=== PATIENT | female | born 1960 | race Caucasian/White ===

== ENCOUNTER → 2016-06-26 | Outpatient (CLI) | payer MEDICARE, OTHER ==
--- NOTE | 2016-06-26 15:26 | NM ---
Nuclear medicine hepatobiliary scan. HISTORY: Pain. The patient received 8 ounces of oral ensure plus and 5 mCi of Technetium 99m Choletec. There is normal hepatic extraction. The gallbladder is seen by 35 minutes. There is biliary to steven l clearance by 20 minutes. Ejection fraction is 86%. IMPRESSION: 1. No evidence of cholecystitis. 2. Ejection fraction is 86%. Correlate clinically.
== END | disposition home or self-care (01) ==
LOC: RADNMMAIN 13:01
PROVIDERS: ATTEND Family Medicine
DX: R10.10 Upper abdominal pain, unspecified (principal)
CPT/HCPCS: 78226; A9537

== ENCOUNTER → 2016-11-20 | Outpatient (CLI) | payer MEDICARE, OTHER ==
--- NOTE | 2016-11-20 13:02 | CT ---
EXAMINATION TYPE: CT chest w con DATE OF EXAM: 11/20/2016 COMPARISON: Previous study dated 11/16/2014 HISTORY: Rt sided chest pain, history of thoracic aneurysm CT DLP: 579.4 mGycm Automated exposure control for dose reduction was used. CONTRAST: CT scan of the chest is performed with IV Contrast, patient injected with 100 mL of Omnipaque 300. FINDINGS: The lungs are clear. There is no significant axillary, internal mammary, mediastinal or hilar adenopathy. There is no pleu ral or pericardial fluid. The heart is not enlarged. The root of the aorta is dilated measuring 4 cm. The proximal arch measures 3.1 cm. The proximal desc ending thoracic aorta and the remainder of the aorta are normal in caliber. Due to the aorta previous ly measured 3.5 cm. There is a small hiatal hernia. Visualized upper abdominal structures are otherwise normal. This hypertrophic spondylosis within the spine. IMPRESSION: 1. ASCENDING THORACIC AORTIC ANEURYSM. 2. SMALL HIATAL HERNIA. 3. DEGENERATIVE CHANGES WITHIN THE SPINE.
== END | disposition home or self-care (01) ==
LOC: RADCTMAIN 11:49
PROVIDERS: ATTEND Family Medicine
DX: I71.2 Thoracic aortic aneurysm, without rupture (principal)
CPT/HCPCS: 71260; Q9967

== ENCOUNTER → 2017-02-24 | Outpatient (CLI) | payer MEDICARE, OTHER ==
--- NOTE | 2017-02-24 12:06 | MR ---
EXAMINATION TYPE: MR lumbar spine wo con DATE OF EXAM: 02/24/2017 COMPARISON: NONE HISTORY: headaches , lumbago TECHNIQUE: T1 and T2 axial and sagittal images of the lumbar spine are submitted. FINDINGS: There is no abnormal signal seen within the visualized spinal cord or paraspinal soft tissu es. At L1-2 there is no disc herniation or canal stenosis. No foraminal encroachment. At L2-3 there is no disc herniation or canal stenosis. No foraminal encroachment. At L3-4 there is facet arthropathy but no disc herniation or canal stenosis. No foraminal encroachmen t. At L4-5 there is facet arthropathy and broad-based central left paracentral disc protrusion with mode rate effacement of thecal sac and mild left foraminal encroachment. At L5-S1 there is facet arthropathy but no disc herniation, canal stenosis or foraminal encroachment. IMPRESSION: 1. At L4-5 there is facet arthropathy and broad-based central left paracentral disc protrusion with m oderate effacement of thecal sac and mild left foraminal encroachment. 2. Multilevel facet arthropathy. EXAMINATION TYPE: MR brain wo con DATE OF EXAM: 02/24/2017 COMPARISON: 10/14/2014. HISTORY: headaches , lumbago T1-weighted sagittal, T2, FLAIR, and diffusion axial, and T2 coronal coronal views of the brain are s ubmitted. There is intermediate area of signal within the right inferior fracture was present on the previous e xam of 2014. Referring clinician notified.. The ventricles, basal cisterns, and sulci overlying the convexities are consistent with the patient's age. There is no mass effect. Craniocervical junction maintained. Sella turcica has a normal appearance. No cerebellopontine angle mass. Areas of chronic sinusitis noted. White matter: There are approximately 4 areas of abnormal signal all measuring 5 mm a left within the white matter. Some of which appear artifactual. No callosal lesions. No lesions perpendicular to matt tricular system. Findings are nonspecific. IMPRESSION: 1. Area of intermediate increased signal on diffusion imaging within the inferior margin of the right cerebellar hemisphere likely is artifactual and is present on the previous exam. Correlate clinicall y to exclude a tiny area of subacute ischemia. 2. Changes of chronic sinusitis. 3. Minimal nonspecific white matter changes.
== END | disposition home or self-care (01) ==
LOC: RADMRIMAIN 09:45
PROVIDERS: ATTEND Psychiatry & Neurology Pain Medicine
DX: M51.27 Other intervertebral disc displacement, lumbosacral region (principal); M46.96 Unspecified inflammatory spondylopathy, lumbar region; R90.82 White matter disease, unspecified; R51 Headache
CPT/HCPCS: 70551; 72148

== ENCOUNTER → 2017-03-14 | Outpatient (CLI) | payer MEDICARE, OTHER ==
--- NOTE | 2017-03-14 17:54 | CT ---
EXAMINATION TYPE: CT angio head neck DATE OF EXAM: 03/14/2017 HISTORY: Vertigo x months and headaches x 1 month. COMPARISON: NONE CT DLP: 1659.00 mGycm. Automated Exposure Control for Dose Reduction was Utilized. TECHNIQUE: CTA scan of the neck is performed without and with IV Contrast, patient injected with 65 mL of Omnipaque 350, axial images are obtained, coronal and sagittal reformatted images are reviewed. Three-D reconstructed images are created on an independent workstation and reviewed. FINDINGS: There is normal branching pattern of the great vessels on the aortic arch. There is bilateral arteria l flow in the vertebral arteries. There is arterial flow in the vertebrobasilar artery system. There is patency of the common internal and external carotid arteries bilaterally. There is arterial flow in the anterior middle and posterior cerebral arteries. There is no sign of aneurysm or neovascu larity. There is no mass effect. There is no sign of stenosis. There is some tortuosity of the proxim al left internal carotid artery. There is normal contrast opacification of the intracranial venous sinuses. IMPRESSION: Negative CT angiogram of the neck. Negative CT angiogram of the brain.
== END | disposition home or self-care (01) ==
LOC: RADCTMAIN 16:37
PROVIDERS: ATTEND Psychiatry & Neurology Neurology
DX: H81.43 Vertigo of central origin, bilateral (principal)
CPT/HCPCS: 70496; 70498; Q9967

== ENCOUNTER → 2017-06-17 | Outpatient (CLI) | payer MEDICARE, OTHER ==
--- NOTE | 2017-06-18 05:51 | CONS ---
CONSULTATION Consultation note for sleep apnea. This is a 56-year-old female patient who suffers from chronic insomnia. The patient reports that she has had issues with insomnia since a young age. She has been told by her mother that she used to wake up after sleeping for a short period of time even as kid. During her adulthood, her insomnia progressively got worse and she was tried on different treatment and she was ultimately maintained on the trazodone 100 mg at bedtime. She takes the medication at 7 p.m. and she is being treated with trazodone since 2005. She goes to bed at around 9 p.m. and she wakes up around midnight. Following that, she is able to go back to sleep and on and off she would wake up, back and forth and ultimately she will get out of bed around 5 a.m. in the morning. She claims that she averages between 4 to 4-1/2 hours of sleep. She has developed also morning headaches. She is obese. She carries a BMI of 42.4 and she snores yet she has not been told to quit breathing at night and there was no witnessed apneas. She has had previous history of restless legs syndrome, which got worse upon initiation of Seroquel and the medication had to be discontinued because of increased restlessness in the lower extremities. She feels tired and around down at all times. At this point in time, the patient is coming in to be investigated regarding her poor sleep quality and see there is any other contributing factors to her chronic insomnia. PAST MEDICAL HISTORY: Obesity, hypothyroidism, migraines, chronic back pain, COPD and chronic insomnia. PAST SURGICAL HISTORY: Past surgical history includes bladder suspension surgery. DRUG ALLERGIES: Drug allergies are to MOLD and MILDEW. SOCIAL HISTORY: The patient is a nonsmoker. She quit smoking many years back. No history of alcoholism other than she drinks alcohol socially. FAMILY HISTORY: Negative for insomnia or obstructive sleep apnea. REVIEW OF SYSTEMS: Twelve-point review of system was done. Positive findings are mentioned above in the history of present illness. Specifically there is no history of any choking or gasping for air at night time. No grinding of the teeth. No sleepwalking. No anxiety or panic attacks. No palpitation. No heartburn. No nocturnal chest pain. No anxiety. No claustrophobia. No sexual dysfunction. PHYSICAL EXAMINATION: Her BP is 149/86, pulse 84, respirations 16, temperature 97.5, saturation 94% on room air. Weight is 255. Height is 5 feet 5 inches and BMI 42.4. Neck size 16-3/4 of an inch. GENERAL APPEARANCE: Calm, comfortable, obese. Head is atraumatic normocephalic. Neck is supple. There is no JVD. There is no goiter or neck masses. Mallampati class 4. Lungs are clear to auscultation. HEART: Sounds regular rate and rhythm. Normal S1, S2. No S3, S4. No murmurs. ABDOMEN: Soft, nontender. No organomegaly. EXTREMITIES: No edema. No cyanosis or clubbing. NEUROLOGIC: She is alert and oriented x3. There is no focal neurological deficits. PSYCHIATRICALLY: Appropriate mood and affect. SKIN: Negative for any ulcerations, wounds or cellulitis. IMPRESSION: 1. Chronic insomnia, currently on trazodone. 2. Poor sleep quality, frequent nocturnal arousals and ongoing issues with sleep maintenance insomnia. Rule out underlying obstructive sleep apnea. Rule out underlying periodic limb movements/restless leg syndrome contributing to her sleep fragmentation. Rule out underlying chronic pain contributing to her sleep fragmentation. 3. Obesity, body mass index 42.4. 4. Hypothyroidism. 5. Morning headaches under investigation, rule out obstructive sleep apnea. 6. Chronic obstructive pulmonary disease, current inactive and stable. PLAN: 1. Encourage weight loss. 2. Optimize treatment of chronic pain through Dr. Perez. 3. Continue trazodone 100 mg at bedtime. 4. Proceed with a screening polysomnogram looking for any other contributing factors to her sleep maintenance insomnia. Rule out underlying obstructive sleep apnea. We will continue to follow and make further recommendations based on the results of the sleep study. MMODL / IJN: [id number] /
== END | disposition home or self-care (01) ==
LOC: SLEEP 13:16
PROVIDERS: ATTEND Internal Medicine Critical Care Medicine
DX: F51.04 Psychophysiologic insomnia (principal); E03.9 Hypothyroidism, unspecified; R51 Headache; J44.9 Chronic obstructive pulmonary disease, unspecified; E66.9 Obesity, unspecified; Z68.41 Body mass index [BMI] 40.0-44.9, adult; Z79.899 Other long term (current) drug therapy; Z77.120 Contact with and (suspected) exposure to mold (toxic); Z91.048 Other nonmedicinal substance allergy status; Z87.891 Personal history of nicotine dependence
CPT/HCPCS: 99204; 99211

== ENCOUNTER → 2017-08-26 | Outpatient (CLI) | payer MEDICARE, OTHER ==
--- NOTE | 2017-08-26 15:14 | MR ---
EXAMINATION TYPE: MR shoulder LT wo con DATE OF EXAM: 08/26/2017 COMPARISON: NONE HISTORY: Left shoulder pain TECHNIQUE: Multiplanar, multisequence imaging of the left shoulder is performed without contrast. FINDINGS: Rotator Cuff: There is a partial thickness bursal surface tear of the supraspinatus at its anterior i nsertional fibers measuring 0.6 x 0.9 cm superimposed upon tendinopathy with extensive bursal surface fiber fraying. Tendinopathy is greatest at the insertional fibers and the supraspinatus midportion. Mild tendinopathy is seen of the infraspinatus as increased signal within the insertional fibers. No distinct tear within the infraspinatus. The teres minor is unremarkable in signal and muscle volume as is the subscapularis. Acromioclavicular Joint: There is mild to moderate acromioclavicular arthropathy with subchondral cys ts, marginal osteophytes and capsular hypertrophy. There is no downsloping of the acromion noted. The re is abutment of the supraspinatus myotendinous junction by the arthropathy without impingement or s ignificant impression. Glenohumeral Joint: No narrowing or marginal osteophytes. Labrum: The labrum appears grossly intact given limitation of non-arthrogram study. There is at least moderate labral degeneration of the anterior superior and posterior superior labrum. Biceps Tendon: The long head of biceps is in normal location within bicipital groove. Fluid surrounds both the intra-articular and extra articular portions of the biceps tendon indicating tenosynovitis in addition to thickening and attenuation in the intra-articular portion near the insertion on the bi ceps anchor. No discrete tear is seen. Bone marrow signal: No focal abnormal marrow signal is appreciated. IMPRESSION: 1. Subcentimeter partial-thickness bursal surface tear of the anterior insertional fibers of the supr aspinatus measuring 0.6 x 0.8 cm. This is superimposed upon tendinopathy with extensive bursal surfac e fiber fraying 2. Mild tendinopathy of infraspinatus. 3. Biceps tenosynovitis and insertional fiber tendinopathy. 4. At least moderate labral degeneration of the anterior superior and posterior superior glenoid labr um. 5. Mild to moderate acromioclavicular arthropathy without evidence of internal impingement.
== END | disposition home or self-care (01) ==
LOC: RADMRIMAIN 08:20
PROVIDERS: ATTEND Psychiatry & Neurology Neurology
DX: M75.102 Unspecified rotator cuff tear or rupture of left shoulder, not specified as traumatic (principal); M65.812 Other synovitis and tenosynovitis, left shoulder; M12.812 Other specific arthropathies, not elsewhere classified, left shoulder; M75.22 Bicipital tendinitis, left shoulder

== ENCOUNTER → 2017-10-23 | Outpatient (CLI) | payer MEDICARE, OTHER ==
--- NOTE | 2017-10-24 13:18 | MM ---
Reason for exam: screening (asymptomatic). Last mammogram was performed 1 year and 11 months ago. History: Patient is postmenopausal. Family history of breast cancer in maternal aunt at age 48. Took estrogen for 6 months. Physical Findings: A clinical breast exam by your physician is recommended on an annual basis and results should be correlated with mammographic findings. MG Screening Mammo w CAD Bilateral CC and MLO view(s) were taken. Prior study comparison: November 16, 2015, left breast MG work up mamm w CAD LT. November 07, 2015, bilateral MG screening mammo w CAD. The breast tissue is heterogeneously dense. This may lower the sensitivity of mammography. No suspicious abnormality. No significant changes when compared with prior studies. ASSESSMENT: Negative, BI-RAD 1 RECOMMENDATION: Routine screening mammogram of both breasts in 1 year.
== END | disposition home or self-care (01) ==
LOC: RADMAMWWP 08:54
PROVIDERS: ATTEND Family Medicine
DX: Z12.31 Encounter for screening mammogram for malignant neoplasm of breast (principal)
CPT/HCPCS: 77067

== ENCOUNTER → 2017-11-17 | Outpatient (CLI) | payer MEDICARE, OTHER ==
--- NOTE | 2017-11-17 08:15 | CT ---
EXAMINATION TYPE: CT angio thoracic/abd aorta DATE OF EXAM: 11/17/2017 COMPARISON: NONE HISTORY: Ascending Aortic Aneurysm CT DLP: 2071.8 mGycm CONTRAST: CTA thoracic and abdominal aorta with 3-D reconstruction is performed and without and with IV Contras t, patient injected with 100 mL of Isovue 370. Contrast CTA of the thoracic and abdominal aorta was performed from the lung apex through the base of the pelvis. 3-D reconstruction imaging obtained at a separate workstation. CT Chest: THORACIC AORTA: There is no evidence for aneurysm. Descending thoracic aorta measures 3.5 cm AP dime nsion. No dissection or mediastinal hematoma. Mild atheromatous changes are seen. LUNGS: The lungs are clear and free of infiltrate or atelectasis. No pulmonary nodule or mass is det ected. No pleural effusion or CT evidence of interstitial lung disease. MEDIASTINUM: The heart is not enlarged. No evidence for mediastinal mass or adenopathy. HILAR STRUCTURES: No evidence for mass. No hilar adenopathy is appreciated. OTHER: No significant abnormality. Small sliding-type hiatal hernia noted. CONTRAST CT ABDOMEN AND PELVIS ABDOMINAL AORTA: No evidence for abdominal aortic aneurysm. No dissection. Iliac vessels are symmet pamela and patent. LIVER/GB- No significant abnormality is seen. PANCREAS- No significant abnormality is seen. SPLEEN- No significant abnormality is seen. ADRENALS- No significant abnormality is seen. KIDNEYS/BLADDER-simple cyst lower pole left kidney measuring 2 cm. No solid renal lesions. No hydrone phrosis or nephrolithiasis. BOWEL- No Significant abnormality GENITAL ORGANS: No gross abnormality seen. LYMPH NODES- No greater than 1cm abdominal or pelvic lymph nodes areappreciated. OSSEOUS STRUCTURES- No significant abnormality is seen. OTHER- No significant abnormality is seen. IMPRESSION- 1. No evidence for aortic aneurysm. 2. Small sliding-type hiatal hernia. 3. Simple cyst left kidney.
== END | disposition home or self-care (01) ==
LOC: RADCTMAIN 07:24
PROVIDERS: ATTEND Internal Medicine Interventional Cardiology
DX: K44.9 Diaphragmatic hernia without obstruction or gangrene (principal); N28.1 Cyst of kidney, acquired
CPT/HCPCS: 75635; 71275; Q9967

== ENCOUNTER 2017-11-24 19:26 | Inpatient (IN) | payer MEDICARE, OTHER ==
[2017-11-24] MEDS ORDERED: MORPHINE SULFATE 2 MG/ML SYRINGE IV STA (20:03)
[2017-11-24] MEDS ORDERED: IPRATROPIUM-ALBUTEROL 3 ML NEB INHALATION STA (20:04)
[2017-11-24] MEDS ORDERED: DEXAMETHASONE SOD PHOSPHATE 10 MG/ML 1 ML VIAL IV STA (20:04)
--- NOTE | 2017-11-24 20:05 | ED ---
General Adult HPI - General Chief complaint: Chest Pain Stated complaint: chest pain/tightness Time Seen by Provider: 11/24/17 19:33 Source: patient, RN notes reviewed, old records reviewed Mode of arrival: ambulatory Limitations: no limitations - History of Present Illness Initial comments: 57-year-old female presents for evaluation of chest pain and cough. Patient states that for the past one to 2 weeks she has had left-sided chest pain which is sharp in nature. She was seen by her primary care physician and given her history of aortic aneurysm she did receive a computed tomography scan approximately one week ago. Patient states her pain was the same at this time it has not changed over the past one week. Begins in the middle sternum and wraps around the left side. She has had a cough which is nonproductive. No fever. She states the pain is worse with cough. No lower extremity pain or swelling. No nausea or vomiting. - Related Data Home Medications Medication Instructions Recorded Confirmed Budesonide [Pulmicort Flexhaler] 2 puff INHALATION RT-DAILY 11/21/14 11/24/17 Omeprazole [PriLOSEC] 20 mg PO BID 11/21/14 11/24/17 traZODone HCL [Desyrel] 100 mg PO HS 11/21/14 11/24/17 Clindamycin Topical Soln 1 applic TOPICAL BID 12/27/15 11/24/17 [Cleocin-T Topical Soln] Ipratropium/Albuterol Sulfate 1 puff INHALATION RT-BID 12/27/15 11/24/17 [Combivent Respimat Inhaler] Montelukast [Singulair] 10 mg PO HS 12/27/15 11/24/17 SUMAtriptan SUCCINATE [Imitrex] 100 mg PO DAILY PRN 12/27/15 11/24/17 Varenicline [Chantix] 1 mg PO BID 12/27/15 11/24/17 Atorvastatin [Lipitor] 10 mg PO HS 11/24/17 11/24/17 Baclofen [Lioresal] 10 mg PO TID PRN 11/24/17 11/24/17 Ergocalciferol (Vitamin D2) 50,000 unit PO BUCKLEY 11/24/17 11/24/17 [Vitamin D2] Levothyroxine Sodium [Synthroid] 200 mcg PO DAILY 11/24/17 11/24/17 Metoprolol Tartrate [Lopressor] 25 mg PO BID 11/24/17 11/24/17 Naproxen [Naprosyn] 500 mg PO Q12HR PRN 11/24/17 11/24/17 Terazosin [Hytrin] 1 mg PO HS 11/24/17 11/24/17 Allergies Allergy/AdvReac Type Severity Reaction Status Date / Time No Known Allergies Allergy Verified 11/24/17 19:41 Review of Systems ROS Statement: Those systems with pertinent positive or pertinent negative responses have been documented in the HPI. ROS Other: All systems not noted in ROS Statement are negative. Past Medical History Past Medical History: COPD, GERD/Reflux, Hypertension Additional Past Medical History / Comment(s): migraines, insomnia History of Any Multi-Drug Resistant Organisms: None Reported Past Surgical History: Orthopedic Surgery Additional Past Surgical History / Comment(s): eye surgery, aortic anurysm. Past Psychological History: No Psychological Hx Reported Smoking Status: Current some day smoker Past Alcohol Use History: Rare Past Drug Use History: Marijuana General Exam Limitations: no limitations General appearance: alert, in no apparent distress Head exam: Present: atraumatic, normocephalic Eye exam: Present: normal appearance, PERRL ENT exam: Present: normal exam Neck exam: Present: normal inspection. Absent: tenderness, meningismus Respiratory exam: Present: wheezes, chest wall tenderness, decreased breath sounds. Absent: respiratory distress Cardiovascular Exam: Present: regular rate, normal rhythm GI/Abdominal exam: Present: soft. Absent: distended, tenderness Extremities exam: Present: normal inspection, full ROM. Absent: tenderness, pedal edema, calf tenderness Neurological exam: Present: alert, oriented X3, CN II-XII intact. Absent: motor sensory deficit Psychiatric exam: Present: normal affect, normal mood Skin exam: Present: warm, dry, intact. Absent: cyanosis, diaphoretic Course Vital Signs 11/24/17 11/24/17 11/24/17 19:28 20:40 20:50 Temperature 98.1 F Pulse Rate 86 78 Respiratory 18 18 Rate Blood Pressure 195/77 O2 Sat by Pulse 96 Oximetry 11/24/17 11/24/17 20:58 21:29 Temperature 98.0 F Pulse Rate 78 86 Respiratory 18 Rate Blood Pressure 135/70 O2 Sat by Pulse 96 Oximetry EKG Findings - EKG Comments: EKG Findings:: EKG: Normal sinus rhythm, low voltage, left posterior fascicular block, rate of 85, ME interval 142, QRS duration 82, QTC 454, there is no ST segment elevation or depression Medical Decision Making - Medical Decision Making 57-year-old female presenting with cough, dyspnea, and chest pain. Pain is reproducible on exam. It has been persistent for the past 1-2 weeks. She had an outpatient CT angiography for history of aneurysm this was reviewed and negative for aortic aneurysm or dissection. Symptoms likely related to COPD exacerbation and cough. She will be treated with steroids, and albuterol. She remains quite dyspneic after initial treatment and will be placed in observation. - Lab Data Result diagrams: 11/24/17 20:30 11/24/17 20:30 Lab Results 11/24/17 11/24/17 11/24/17 Range/Units 20:30 20:30 20:30 WBC 6.4 (3.8-10.6) k/uL RBC 4.54 (3.80-5.40) m/uL Hgb 13.5 (11.4-16.0) gm/dL Hct 41.5 (34.0-46.0) % MCV 91.6 (80.0-100.0) fL MCH 29.9 (25.0-35.0) pg MCHC 32.6 (31.0-37.0) g/dL RDW 14.1 (11.5-15.5) % Plt Count 234 (150-450) k/uL Neutrophils % 59 % Lymphocytes % 31 % Monocytes % 6 % Eosinophils % 2 % Basophils % 1 % Neutrophils # 3.8 (1.3-7.7) k/uL Lymphocytes # 2.0 (1.0-4.8) k/uL Monocytes # 0.4 (0-1.0) k/uL Eosinophils # 0.1 (0-0.7) k/uL Basophils # 0.0 (0-0.2) k/uL PT (9.0-12.0) sec INR (<1.2) APTT (22.0-30.0) sec Sodium 141 (137-145) mmol/L Potassium 4.3 (3.5-5.1) mmol/L Chloride 103 (98-107) mmol/L Carbon Dioxide 28 (22-30) mmol/L Anion Gap 10 mmol/L BUN 15 (7-17) mg/dL Creatinine 0.95 (0.52-1.04) mg/dL Est GFR (CKD-EPI)AfAm 77 (>60 ml/min/1.73 sqM) Est GFR (CKD-EPI)NonAf 67 (>60 ml/min/1.73 sqM) Glucose 122 H (74-99) mg/dL Calcium 9.2 (8.4-10.2) mg/dL Magnesium 1.8 (1.6-2.3) mg/dL Total Bilirubin 0.3 (0.2-1.3) mg/dL AST 19 (14-36) U/L ALT 42 (9-52) U/L Alkaline Phosphatase 68 (38-126) U/L Total Creatine Kinase 71 (30-135) U/L CK-MB (CK-2) 0.8 (0.0-2.4) ng/mL CK-MB (CK-2) Rel Index 1.1 Troponin I <0.012 (0.000-0.034) ng/mL NT-Pro-B Natriuret Pep pg/mL Total Protein 6.2 L (6.3-8.2) g/dL Albumin 3.9 (3.5-5.0) g/dL Lipase 144 (23-300) U/L 11/24/17 11/24/17 Range/Units 20:30 20:30 WBC (3.8-10.6) k/uL RBC (3.80-5.40) m/uL Hgb (11.4-16.0) gm/dL Hct (34.0-46.0) % MCV (80.0-100.0) fL MCH (25.0-35.0) pg MCHC (31.0-37.0) g/dL RDW (11.5-15.5) % Plt Count (150-450) k/uL Neutrophils % % Lymphocytes % % Monocytes % % Eosinophils % % Basophils % % Neutrophils # (1.3-7.7) k/uL Lymphocytes # (1.0-4.8) k/uL Monocytes # (0-1.0) k/uL Eosinophils # (0-0.7) k/uL Basophils # (0-0.2) k/uL PT 10.1 (9.0-12.0) sec INR 1.0 (<1.2) APTT 22.2 (22.0-30.0) sec Sodium (137-145) mmol/L Potassium (3.5-5.1) mmol/L Chloride (98-107) mmol/L Carbon Dioxide (22-30) mmol/L Anion Gap mmol/L BUN (7-17) mg/dL Creatinine (0.52-1.04) mg/dL Est GFR (CKD-EPI)AfAm (>60 ml/min/1.73 sqM) Est GFR (CKD-EPI)NonAf (>60 ml/min/1.73 sqM) Glucose (74-99) mg/dL Calcium (8.4-10.2) mg/dL Magnesium (1.6-2.3) mg/dL Total Bilirubin (0.2-1.3) mg/dL AST (14-36) U/L ALT (9-52) U/L Alkaline Phosphatase (38-126) U/L Total Creatine Kinase (30-135) U/L CK-MB (CK-2) (0.0-2.4) ng/mL CK-MB (CK-2) Rel Index Troponin I (0.000-0.034) ng/mL NT-Pro-B Natriuret Pep 70 pg/mL Total Protein (6.3-8.2) g/dL Albumin (3.5-5.0) g/dL Lipase (23-300) U/L Disposition Clinical Impression: COPD exacerbation, Chest pain, Costalchondritis Disposition: ADMITTED IP TO THIS HOSP Condition: Stable Is patient prescribed a controlled substance at d/c from ED?: No Referrals: Hugo Preston MD [Primary Care Provider] - 1-2 days Decision to Admit Reason: Admit from EC Decision Date: 11/24/17 Decision Time: 22:15
[2017-11-24 20:41] LABS: Basophils % (A) 1 %; Eosinophils # (A) 0.1 k/uL (0-0.7); Eosinophils % (A) 2 %; HCT 41.5 % (34.0-46.0); HGB 13.5 gm/dL (11.4-16.0); Lymphocytes % (A) 31 %; MCH 29.9 pg (25.0-35.0); MCHC 32.6 g/dL (31.0-37.0); MCV 91.6 fL (80.0-100.0); Monocytes # (A) 0.4 k/uL (0-1.0); Monocytes % (A) 6 %; Neutrophils # (A) 3.8 k/uL (1.3-7.7); Neutrophils % (A) 59 %; Platelet Count 234 k/uL (150-450); RBC 4.54 m/uL (3.80-5.40); RDW 14.1 % (11.5-15.5); WBC 6.4 k/uL (3.8-10.6)
[2017-11-24 20:52] LABS: Albumin 3.9 g/dL (3.5-5.0); Calcium 9.2 mg/dL (8.4-10.2); Magnesium 1.8 mg/dL (1.6-2.3); Partial Thromboplastin Time 22.2 sec (22.0-30.0); Potassium 4.3 mmol/L (3.5-5.1); Prothrombin Time 10.1 sec (9.0-12.0); Total Bilirubin 0.3 mg/dL (0.2-1.3); Total Protein 6.2 g/dL (6.3-8.2)
--- NOTE | 2017-11-24 20:56 | XR ---
EXAMINATION TYPE: XR chest 2V DATE OF EXAM: 11/24/2017 COMPARISON: NONE HISTORY: Chest pain TECHNIQUE: Frontal and lateral views of the chest are obtained. FINDINGS: There is no heart failure nor confluent pneumonic infiltrate. Heart size is normal. There are no hilar masses. Mediastinum is normal. There are chest leads. Bony thorax is intact. IMPRESSION: Normal chest
[2017-11-24 21:01] LABS: Creatine Kinase 71 U/L (30-135)
[2017-11-24 21:13] LABS: Creatine Kinase MB 0.8 ng/mL (0.0-2.4); Troponin I <0.012 ng/mL (0.000-0.034)
[2017-11-24] MEDS ORDERED: NALOXONE 0.4 MG/ML 1 ML VIAL IV PRN (22:10)
[2017-11-24] MEDS ORDERED: BACLOFEN 10 MG TAB PO PRN (22:12)
[2017-11-24] MEDS ORDERED: NAPROXEN 250 MG TAB PO PRN (22:12)
[2017-11-24] MEDS ORDERED: ALBUTEROL NEBULIZED 2.5 MG/3 ML INHALATION PRN (22:12)
[2017-11-25] MEDS: METOPROLOL TARTRATE 25 MG TAB PO SCH ×3 (00:18→21:13)
[2017-11-25] MEDS: ATORVASTATIN 10 MG TAB PO SCH ×2 (00:18→21:12)
[2017-11-25] MEDS: VARENICLINE 1 MG TAB PO SCH ×3 (00:18→18:29)
[2017-11-25] MEDS: traZODone HCL 100 MG TAB PO SCH ×2 (00:18→21:12)
[2017-11-25] MEDS: PANTOPRAZOLE 40 MG TABLET PO SCH ×3 (00:18→18:29)
[2017-11-25 02:15] LABS: Creatine Kinase 73 U/L (30-135)
[2017-11-25 02:28] LABS: Troponin I <0.012 ng/mL (0.000-0.034)
[2017-11-25] MEDS: ALBUTEROL NEBULIZED 2.5 MG/3 ML INHALATION SCH ×7 (03:45→23:10)
[2017-11-25] MEDS: traMADol 50 MG TAB PO PRN ×2 (04:50→15:28)
[2017-11-25] MEDS: LEVOTHYROXINE 100 MCG TAB PO SCH (06:28)
[2017-11-25] MEDS ORDERED: PANTOPRAZOLE 40 MG TABLET PO SCH (07:30)
[2017-11-25] MEDS ORDERED: VARENICLINE 1 MG TAB PO SCH (08:30)
[2017-11-25] MEDS ORDERED: METOPROLOL TARTRATE 25 MG TAB PO SCH (09:00)
[2017-11-25] MEDS ORDERED: predniSONE 50 MG TAB PO SCH (09:00)
[2017-11-25 09:12] LABS: Creatine Kinase 56 U/L (30-135)
[2017-11-25 09:25] LABS: Creatine Kinase MB 0.8 ng/mL (0.0-2.4); Troponin I <0.012 ng/mL (0.000-0.034)
--- NOTE | 2017-11-25 10:04 | ECHOF ---
Referral Reason:shortness of breath MEASUREMENTS -------- HEIGHT: 167.6 cm WEIGHT: 117.9 kg BP: 119/75 RVIDd: 3.2 cm (< 3.3) IVSd: 1.5 cm (0.6 - 1.1) LVIDd: 4.3 cm (3.9 - 5.3) LVPWd: 1.4 cm (0.6 - 1.1) IVSs: 1.7 cm LVIDs: 2.9 cm LVPWs: 1.5 cm LA Diam: 3.2 cm (2.7 - 3.8) LAESV Index (A-L): 19.15 ml/m Ao Diam: 3.5 cm (2.0 - 3.7) AV Cusp: 2.0 cm (1.5 - 2.6) MV EXCURSION: 14.013 mm (> 18.000) MV EF SLOPE: 78 mm/s (70 - 150) EPSS: 0.4 cm MV E Justyn: 0.92 m/s MV DecT: 202 ms MV A Justyn: 1.18 m/s MV E/A Ratio: 0.78 FINDINGS -------- Sinus rhythm. This was a technically adequate study. The left ventricular size is normal. There is moderate concentric left ventricular hypertrophy. O verall left ventricular systolic function is normal with, an EF between 55 - 60 %. The right ventricle is normal in size. Normal LA size by volume 22+/-6 ml/m2. The right atrium is normal in size. The aortic valve is trileaflet and appears structurally normal. Mild mitral annular calcification present. The tricuspid valve appears structurally normal. The pulmonic valve was not well visualized. The aortic root size is normal. IVC Not well visulized. There is no pericardial effusion. CONCLUSIONS -------- 1. Sinus rhythm. 2. This was a technically adequate study. 3. The left ventricular size is normal. 4. There is moderate concentric left ventricular hypertrophy. 5. Overall left ventricular systolic function is normal with, an EF between 55 - 60 %. 6. The right ventricle is normal in size. 7. Normal LA size by volume 22+/-6 ml/m2. 8. The right atrium is normal in size. 9. The aortic valve is trileaflet and appears structurally normal. 10. Mild mitral annular calcification present. 11. The tricuspid valve appears structurally normal. 12. The pulmonic valve was not well visualized. 13. The aortic root size is normal. 14. IVC Not well visulized. 15. There is no pericardial effusion. COMPUTER HELP DESK SPECIALIST: Fabi Madrigal RDCS
--- NOTE | 2017-11-25 11:10 | P.CRDCN ---
History of Present Illness History of present illness: Mrs. Victoria is a pleasant 57-year-old female past medical history significant for COPD, hypertension, hypothyroidism and chronic nicotine dependence. She denies history of coronary artery disease. She follows with Dr. MARY Wray in the office. We have been asked to see her in consultation for chest pain and shortness of breath. She states she has been coughing for the last 2 weeks and noticed increasing shortness of breath. She has been monitoring her blood pressure at home and noticed it has been elevating. She started feeling a discomfort in her mid-sternal region last night that radiated under her left breasy and into her left shoulder. The area is very tender to touch and painfule with any sort of movement. She recently underwent a thoracic CT secondary to a dilated aortic root on echo which was negative for an aortic aneurysm. EKG sinus mechanism with no acute ST or T-wave abnormalities with non-specific changes. Chest xray negative for an acute cardiopulmonary process. Laboratory data reviewed, hemoglobin 13.5, platelets 234, sodium 141, potassium 4.3, magnesium 1.8, creatinine 0.95, cardiac enzymes negative 3, proBNP 70. Current cardiac medications include atorvastatin 10 mg daily, Lopressor 25 mg twice a day. She also takes Desyrel, Chantix, Imitrex, Prilosec, Naprosyn, Singulair, Synthroid, Combivent, Pulmicort and baclofen. Review of Systems At the time of my exam: CONSTITUTIONAL: Denies fever. Denies chills. EYES: Denies blurred vision. Denies vision changes. Denies eye pain. EARS, NOSE, MOUTH & THROAT: Denies headache. Denies sore throat. Denies ear pain. CARDIOVASCULAR: Denies chest pain. Denies shortness of breath. Denies orthopnea. Denies PND. Denies palpitations. RESPIRATORY: Complains of cough. GASTROINTESTINAL: Denies abdominal pain. Denies diarrhea. Denies constipation. Denies nausea. Denies vomiting. MUSCULOSKELETAL: Complains of tenderness to the mid sternal region and into the left shoulder and left upper back. INTEGUMENTARY: Denies pruitis. Denies rash. NEUROLOGIC: Denies numbness. Denies tingling. Denies weakness. PSYCHIATRIC: Denies anxiety. Denies depression. ENDOCRINE: Denies fatigue. Denies weight change. Denies polydipsia. Denies polyurina. GENITOURINARY: Denies burning, hematuria or urgency with micturation. HEMATOLOGIC: Denies history of anemia. Denies bleeding. Past Medical History Past Medical History: COPD, GERD/Reflux, Hypertension, Thyroid Disorder Additional Past Medical History / Comment(s): migraines, insomnia, aortic aneurysm History of Any Multi-Drug Resistant Organisms: None Reported Past Surgical History: Orthopedic Surgery Additional Past Surgical History / Comment(s): eye surgery, left thumb surgery, bladder surgery Past Anesthesia/Blood Transfusion Reactions: No Reported Reaction Past Psychological History: No Psychological Hx Reported Smoking Status: Current some day smoker Past Alcohol Use History: Rare Past Drug Use History: Marijuana - Past Family History Mother Family Medical History: Cancer Additional Family Medical History / Comment(s): lung cancer Father Family Medical History: Coronary Artery Disease (CAD), Diabetes Mellitus Sister(s) Additional Family Medical History / Comment(s): ETOH Brother(s) Family Medical History: Coronary Artery Disease (CAD) Medications and Allergies Home Medications Medication Instructions Recorded Confirmed Type Budesonide [Pulmicort Flexhaler] 2 puff INHALATION RT-DAILY 11/21/14 11/24/17 History Omeprazole [PriLOSEC] 20 mg PO BID 11/21/14 11/24/17 History traZODone HCL [Desyrel] 100 mg PO HS 11/21/14 11/24/17 History Clindamycin Topical Soln 1 applic TOPICAL BID 12/27/15 11/24/17 History [Cleocin-T Topical Soln] Ipratropium/Albuterol Sulfate 1 puff INHALATION RT-BID 12/27/15 11/24/17 History [Combivent Respimat Inhaler] Montelukast [Singulair] 10 mg PO HS 12/27/15 11/24/17 History SUMAtriptan SUCCINATE [Imitrex] 100 mg PO DAILY PRN 12/27/15 11/24/17 History Varenicline [Chantix] 1 mg PO BID 12/27/15 11/24/17 History Atorvastatin [Lipitor] 10 mg PO HS 11/24/17 11/24/17 History Baclofen [Lioresal] 10 mg PO TID PRN 11/24/17 11/24/17 History Ergocalciferol (Vitamin D2) 50,000 unit PO BUCKLEY 11/24/17 11/24/17 History [Vitamin D2] Levothyroxine Sodium [Synthroid] 200 mcg PO DAILY 11/24/17 11/24/17 History Metoprolol Tartrate [Lopressor] 25 mg PO BID 11/24/17 11/24/17 History Naproxen [Naprosyn] 500 mg PO Q12HR PRN 11/24/17 11/24/17 History Terazosin [Hytrin] 1 mg PO HS 11/24/17 11/24/17 History Allergies Allergy/AdvReac Type Severity Reaction Status Date / Time No Known Allergies Allergy Verified 11/24/17 23:13 Physical Exam Vitals: Vital Signs Temp Pulse Pulse Resp BP BP Pulse Ox 11/25/17 08:00 97.9 F 88 16 119/75 92 L 11/25/17 07:44 92 11/25/17 07:30 88 11/25/17 03:56 96 11/25/17 03:46 87 11/25/17 03:27 98.2 F 96 16 137/80 91 L 11/25/17 03:26 16 11/24/17 23:22 16 11/24/17 23:20 98.0 F 74 16 150/86 92 L 11/24/17 22:52 97.7 F 79 16 133/77 96 11/24/17 21:29 98.0 F 86 18 135/70 96 11/24/17 20:58 78 11/24/17 20:50 78 11/24/17 20:40 18 11/24/17 19:28 98.1 F 86 18 195/77 96 Intake and Output 11/24/17 11/25/17 11/25/17 22:59 06:59 14:59 Other: Voiding Method Toilet # Voids 2 Weight 117.934 kg Blood pressure 119/75 heart rate 88 afebrile maintaining oxygen saturation on nasal cannula GENERAL: This is a 57-year-old female in no apparent distress at the time of my examination. HEENT: Head is atraumatic, normocephalic. Pupils are equal, round. Sclerae anicteric. Conjunctivae are clear. Mucous membranes of the mouth are moist. Neck is supple. There is no jugular venous distention. No carotid bruit is heard. LUNGS: Clear to auscultation no wheezes, rales or rhonchi. No chest wall tenderness is noted on palpation or with deep breathing. HEART: Regular rate and rhythm without murmurs, rubs or gallops. S1 and S2 heard. ABDOMEN: Soft, nontender. Bowel sounds are heard. No organomegaly noted. EXTREMITIES: No evidence of peripheral edema and no calf tenderness noted. VASCULAR: Radial and dorsalis pedis pulses palpated, no evidence of clubbing. NEUROLOGIC: Patient is awake, alert and oriented x3. Results 11/24/17 20:30 11/24/17 20:30 Cardiac Enzymes 11/24/17 11/24/17 11/25/17 Range/Units 20:30 20:30 01:39 AST 19 (14-36) U/L CK-MB (CK-2) 0.8 1.0 (0.0-2.4) ng/mL Troponin I <0.012 <0.012 (0.000-0.034) ng/mL Coagulation 11/24/17 Range/Units 20:30 PT 10.1 (9.0-12.0) sec APTT 22.2 (22.0-30.0) sec CBC 11/24/17 Range/Units 20:30 WBC 6.4 (3.8-10.6) k/uL RBC 4.54 (3.80-5.40) m/uL Hgb 13.5 (11.4-16.0) gm/dL Hct 41.5 (34.0-46.0) % Plt Count 234 (150-450) k/uL Comprehensive Metabolic Panel 11/24/17 Range/Units 20:30 Sodium 141 (137-145) mmol/L Potassium 4.3 (3.5-5.1) mmol/L Chloride 103 (98-107) mmol/L Carbon Dioxide 28 (22-30) mmol/L BUN 15 (7-17) mg/dL Creatinine 0.95 (0.52-1.04) mg/dL Glucose 122 H (74-99) mg/dL Calcium 9.2 (8.4-10.2) mg/dL AST 19 (14-36) U/L ALT 42 (9-52) U/L Alkaline Phosphatase 68 (38-126) U/L Total Protein 6.2 L (6.3-8.2) g/dL Albumin 3.9 (3.5-5.0) g/dL Current Medications Generic Name Dose Route Start Last Admin Trade Name Freq PRN Reason Stop Dose Admin Albuterol Sulfate 2.5 mg 11/25/17 00:00 11/25/17 07:31 Ventolin Nebulized INHALATION 2.5 mg RT-Q4H FLORES Administration Albuterol Sulfate 2.5 mg 11/24/17 22:12 Ventolin Nebulized INHALATION RT-Q2H PRN Shortness Of Breath Or Wheezing Atorvastatin Calcium 10 mg 11/24/17 23:45 11/25/17 00:18 Lipitor PO 10 mg HS FLORES Administration Baclofen 10 mg 11/24/17 22:12 11/25/17 00:19 Lioresal PO 10 mg TID PRN Administration pain scale 1-5 Levothyroxine Sodium 200 mcg 11/25/17 06:30 11/25/17 06:28 Synthroid PO 200 mcg 0630 FLORES Administration Metoprolol Tartrate 25 mg 11/24/17 23:45 11/25/17 00:18 Lopressor PO 25 mg BID FLORES Administration Naloxone HCl 0.2 mg 11/24/17 22:10 Narcan IV Q2M PRN Opioid Reversal Naproxen 500 mg 11/24/17 22:12 11/25/17 00:18 Naprosyn PO 500 mg Q12HR PRN Administration pain scale 6-10 Pantoprazole Sodium 40 mg 11/24/17 23:45 11/25/17 00:18 Protonix PO 40 mg AC-BID FLORES Administration Prednisone 50 mg 11/25/17 09:00 PO DAILY FLORES Tramadol HCl 50 mg 11/25/17 04:41 11/25/17 04:50 Ultram PO 50 mg QID PRN Administration BREAKTHROUGH Pain Trazodone HCl 100 mg 11/24/17 23:45 11/25/17 00:18 Desyrel PO 100 mg HS FLORES Administration Varenicline 1 mg 11/24/17 23:34 11/25/17 00:18 Chantix PO 1 mg PC-BID FLORES Administration Intake and Output 11/24/17 11/25/17 11/25/17 22:59 06:59 14:59 Other: Voiding Method Toilet # Voids 2 Weight 117.934 kg 11/24/17 20:30 11/24/17 20:30 Assessment and Plan Assessment: ASSESSMENT 1. Musckuloskeletal chest pain 2. COPD 3. Hypertension 4. Hypothyroid 5. Chronic tobacco dependence PLAN Obtain 2D echocardiogram and doppler study to assess cardiac structure and function. An acute coronary event has been ruled out with no EKG evidence of ischemia and negative cardiac enzymes. Recent Lexiscan stress test in the office is negative for reversible cardiac ischemia. Stable from a cardiac perspective, follow up with Dr. MARY Wray in 2-3 weeks. Thank you kindly for this consultation. Nurse Practitioner note has been reviewed, I agree with a documented findings and plan of care. Patient was seen and examined.
[2017-11-25] MEDS ORDERED: IPRATROPIUM-ALBUTEROL 3 ML NEB INHALATION PRN (14:02)
[2017-11-25] MEDS: AZITHROMYCIN 500 MG in SODIUM CHLORIDE 0.9% 250 ML IVPB SCH (15:21)
[2017-11-25] MEDS: methylPREDNISolone SOD SUCCI 40 MG/ML 1 ML VIAL IV SCH ×2 (15:30→23:27)
[2017-11-25] MEDS: IBUPROFEN 600 MG TAB PO SCH ×2 (15:32→21:13)
--- NOTE | 2017-11-25 15:43 | P.HPIM ---
History of Present Illness H&P Date: 11/25/17 This is a 57-year-old female patient of Dr. Hugo Preston with past medical history of COPD, gastroesophageal reflux disease, hypertension, hypothyroidism, migraine headaches, insomnia, aortic aneurysm, tobacco use and dependence, marijuana use.patient states that she has had some chest pain for last couple of weeks but yesterday became really bad. She realized her blood pressure was elevated and that made her come into the hospital for evaluation. She does have a cough with some shortness of breath as well as tenderness to the chest wall. She is not on home O2. 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 Imani Wray. She is normally taking ibuprofen at home. She denies any history of DVT. She does have intermittent lower extremity edema. She uses a CPAP for obstructive sleep apnea. Patient also has Pulmicort and Combivent inhalers at home which she has been using. Patient is a smoker of half pack per day for 48 years. She recently quit smoking for 4 years and started back in October. She is on and Friday. She denies any alcohol use. CT angiogram of the aorta done on November 17 reveals no evidence of aortic aneurysm , small sliding type hiatal hernia, simple cyst in the left kidney. Patient presented to [facility] emergency center for evaluation. Chest x-ray was normal. EKG was a normal sinus rhythm with no acute ST changes. Vital signs were stable. Patient was afebrile. White count was 6.4, hemoglobin 13.5, blood sugar 122, electrolytes within normal limits. Creatinine 0.95. Troponin was negative. ProBNP was 70. Patient was placed on the observation unit and cardiology consult requested. Troponins are now negative on 3 draws. Cardiology consult is appreciated. Echocardiogram reveals EF of 55-60%, moderate concentric left ventricular hypertrophy. Patient had recent Lexiscan stress test in the office which was negative. Patient has been cleared from cardiology for discharge and follow-up with Dr. Imani Wray in 2-3 weeks.however, patient has very tight lung sounds and continues to have shortness of breath. We are planning to keep her here for COPD exacerbation and started her on DuoNeb treatments, Pulmicort and Solu-Medrol IV. Review of Systems All systems: negative Constitutional: Reports fatigue, Denies chills, Denies fever, Denies poor appetite, Denies weight loss Eyes: denies blurred vision, denies pain Ears, nose, mouth and throat: Denies headache, Denies sore throat Cardiovascular: Reports chest pain, Reports decreased exercise tolerance, Reports dyspnea on exertion, Reports leg edema, Reports shortness of breath, Denies lightheadedness, Denies orthopnea, Denies palpitations Respiratory: Reports cough, Reports dyspnea, Reports sleep apnea, Reports wheezing, Denies excessive sputum, Denies hemoptysis, Denies home oxygen Gastrointestinal: Denies abdominal pain, Denies diarrhea, Denies nausea, Denies vomiting Genitourinary: Denies dysuria, Denies hematuria Musculoskeletal: Denies myalgias Integumentary: Denies pruritus, Denies rash Neurological: Denies numbness, Denies weakness Psychiatric: Denies anxiety, Denies depression Endocrine: Denies fatigue, Denies weight change Past Medical History Past Medical History: COPD, GERD/Reflux, Hypertension, Thyroid Disorder Additional Past Medical History / Comment(s): migraines, insomnia, obstructive sleep apnea on CPAP History of Any Multi-Drug Resistant Organisms: None Reported Past Surgical History: Orthopedic Surgery Additional Past Surgical History / Comment(s): eye surgery, left thumb surgery, bladder surgery Past Anesthesia/Blood Transfusion Reactions: No Reported Reaction Past Psychological History: No Psychological Hx Reported Smoking Status: Current some day smoker Past Alcohol Use History: Rare Additional Past Alcohol Use History / Comment(s): Patient is a smoker of half pack per day for 48 years. She recently quit smoking for 4 years and started back in October. She is on and Friday. She denies any alcohol use. Past Drug Use History: Marijuana - Past Family History Mother Family Medical History: Cancer Additional Family Medical History / Comment(s): mother due to lung cancer Father Family Medical History: Coronary Artery Disease (CAD), Diabetes Mellitus Additional Family Medical History / Comment(s): Father is alive with history of CAD, DM and is on home O2. She does not know any further details. Sister(s) Additional Family Medical History / Comment(s): ETOH Brother(s) Family Medical History: Coronary Artery Disease (CAD) Medications and Allergies Home Medications Medication Instructions Recorded Confirmed Type Budesonide [Pulmicort Flexhaler] 2 puff INHALATION RT-DAILY 11/21/14 11/24/17 History Omeprazole [PriLOSEC] 20 mg PO BID 11/21/14 11/24/17 History traZODone HCL [Desyrel] 100 mg PO HS 11/21/14 11/24/17 History Clindamycin Topical Soln 1 applic TOPICAL BID 12/27/15 11/24/17 History [Cleocin-T Topical Soln] Ipratropium/Albuterol Sulfate 1 puff INHALATION RT-BID 12/27/15 11/24/17 History [Combivent Respimat Inhaler] Montelukast [Singulair] 10 mg PO HS 12/27/15 11/24/17 History SUMAtriptan SUCCINATE [Imitrex] 100 mg PO DAILY PRN 12/27/15 11/24/17 History Varenicline [Chantix] 1 mg PO BID 12/27/15 11/24/17 History Atorvastatin [Lipitor] 10 mg PO HS 11/24/17 11/24/17 History Baclofen [Lioresal] 10 mg PO TID PRN 11/24/17 11/24/17 History Ergocalciferol (Vitamin D2) 50,000 unit PO BUCKLEY 11/24/17 11/24/17 History [Vitamin D2] Levothyroxine Sodium [Synthroid] 200 mcg PO DAILY 11/24/17 11/24/17 History Metoprolol Tartrate [Lopressor] 25 mg PO BID 11/24/17 11/24/17 History Naproxen [Naprosyn] 500 mg PO Q12HR PRN 11/24/17 11/24/17 History Terazosin [Hytrin] 1 mg PO HS 11/24/17 11/24/17 History Allergies Allergy/AdvReac Type Severity Reaction Status Date / Time No Known Allergies Allergy Verified 11/24/17 23:13 Physical Exam Vitals: Vital Signs Temp Pulse Pulse Resp BP BP Pulse Ox 11/25/17 11:17 84 11/25/17 09:45 95 11/25/17 08:00 97.9 F 88 16 119/75 92 L 11/25/17 07:44 92 11/25/17 07:30 88 11/25/17 03:56 96 11/25/17 03:46 87 11/25/17 03:27 98.2 F 96 16 137/80 91 L 11/25/17 03:26 16 11/24/17 23:22 16 11/24/17 23:20 98.0 F 74 16 150/86 92 L 11/24/17 22:52 97.7 F 79 16 133/77 96 11/24/17 21:29 98.0 F 86 18 135/70 96 11/24/17 20:58 78 11/24/17 20:50 78 11/24/17 20:40 18 11/24/17 19:28 98.1 F 86 18 195/77 96 Intake and Output 11/24/17 11/25/17 11/25/17 22:59 06:59 14:59 Intake Total 236 Balance 236 Intake: Oral 236 Other: Voiding Method Toilet Toilet # Voids 2 Weight 117.934 kg Gen: This is a morbidly obese 57-year-old female. She is sitting up in bed and appears to be comfortable. HEENT: Head is atraumatic, normocephalic. Pupils equal, round. Sclerae is anicteric. NECK: Supple. No JVD. No lymphadenopathy. No thyromegaly. LUNGS: Decreased air exchange bilaterally with few wheezesi. No intercostal retractions. Increased respiratory effort with minimal movement in bed. HEART: Regular rate and rhythm. No murmur. + chest wall tenderness. ABDOMEN: Soft. Bowel sounds are present. No masses. No tenderness. EXTREMITIES: Trace bilat pedal edema. No calf tenderness. NEUROLOGICAL: Patient is awake, alert and oriented x3. Cranial nerves 2 through 12 are grossly intact. Results CBC & Chem 7: 11/24/17 20:30 11/24/17 20:30 Labs: Abnormal Lab Results - Last 24 Hours (Table) 11/24/17 Range/Units 20:30 Glucose 122 H (74-99) mg/dL Total Protein 6.2 L (6.3-8.2) g/dL Thrombosis Risk Factor Assmnt - DVT/VTE Prophylaxis DVT/VTE Prophylaxis: Pharmacologic Prophylaxis ordered - Choose All That Apply Any of the Below Risk Factors Present?: Yes Each Factor Represents 1 point: Abnormal pulmonary function (COPD), Age 41-60 years, Obesity (BMI >25), Varicose veins Other Risk Factors: No Other congenital or acquired thrombophilia - If yes, enter type in comment: No Thrombosis Risk Factor Assessment Total Risk Factor Score: 4 Thrombosis Risk Factor Assessment Level: Moderate Risk Assessment and Plan Plan: 1.COPD exacerbation. Patient started on DuoNeb treatments 4 times daily scheduled and as needed, Pulmicort 1 mg twice daily, Solu-Medrol 40 mg IV every 8 hours. 2. chest pain secondary to costochondritis. Patient placed on Motrin 600 mg 3 times daily. Naproxen on hold. 3. Acute on chronic tracheal bronchitis. Continue as in #1. Azithromycin 500 mg IV piggyback daily. 3. hyperlipidemia. Continue Lipitor. 4. hypertension. Continue Lopressor 25 mg twice daily. 5. tobacco use and dependence. Patient is currently on Chantix 1 mg twice daily to be continued. 6. hypothyroidism. Continue Synthroid 200 g daily. 7. chronic back pain. Continue baclofen, tramadol. 8. gastroesophageal reflux disease. Continue Protonix. 9. DVT prophylaxis. Lovenox. Patient will be admitted to the hospital for a minimum of 2 night stay. Discharge plan: return home Impression and plan of care have been directed as dictated by the signing physician. Shanthi Potter nurse practitioner acting as scribe for signing physician.
[2017-11-25] MEDS: IPRATROPIUM-ALBUTEROL 3 ML NEB INHALATION SCH ×2 (15:53→19:53)
[2017-11-25 17:32] LABS: Glucose,Whole Blood 216 mg/dL (75-99)
[2017-11-25] MEDS: INSULIN ASPART 100 UNIT/ML 1 ML 10 ML VIAL SQ SCH ×2 (18:27→21:12)
[2017-11-25] MEDS: BUDESONIDE 1 MG/2 ML NEBU INHALATION SCH (19:48)
[2017-11-25 20:56] LABS: Glucose,Whole Blood 209 mg/dL (75-99)
[2017-11-25] MEDS ORDERED: ATORVASTATIN 10 MG TAB PO SCH (21:00)
[2017-11-25] MEDS ORDERED: traZODone HCL 100 MG TAB PO SCH (21:00)
[2017-11-26] MEDS: ALBUTEROL NEBULIZED 2.5 MG/3 ML INHALATION SCH ×4 (02:59→16:05)
[2017-11-26] MEDS: LEVOTHYROXINE 100 MCG TAB PO SCH (05:50)
[2017-11-26 07:15] LABS: Glucose,Whole Blood 208 mg/dL (75-99)
[2017-11-26] MEDS: INSULIN ASPART 100 UNIT/ML 1 ML 10 ML VIAL SQ SCH ×2 (07:24→12:42)
[2017-11-26] MEDS: BUDESONIDE 1 MG/2 ML NEBU INHALATION SCH (08:19)
[2017-11-26] MEDS: IPRATROPIUM-ALBUTEROL 3 ML NEB INHALATION SCH ×3 (08:19→16:07)
[2017-11-26] MEDS: VARENICLINE 1 MG TAB PO SCH (08:49)
[2017-11-26] MEDS: methylPREDNISolone SOD SUCCI 40 MG/ML 1 ML VIAL IV SCH (08:49)
[2017-11-26] MEDS: METOPROLOL TARTRATE 25 MG TAB PO SCH (08:52)
[2017-11-26] MEDS: IBUPROFEN 600 MG TAB PO SCH (08:53)
[2017-11-26] MEDS ORDERED: ENOXAPARIN 40 MG/0.4 ML SYRINGE SQ SCH (09:00)
[2017-11-26] MEDS: AZITHROMYCIN 500 MG in SODIUM CHLORIDE 0.9% 250 ML IVPB SCH (09:57)
[2017-11-26] MEDS: PANTOPRAZOLE 40 MG TABLET PO SCH (09:57)
[2017-11-26 11:16] LABS: Glucose,Whole Blood 209 mg/dL (75-99)
[2017-11-26 11:21] LABS: Hemoglobin A1C 6.7 % (4.0-6.0)
[2017-11-26 14:39] VITALS: BP 122/79; PULSE 83; RESP 18; TEMP 97.7
[2017-11-27] MEDS ORDERED: AZITHROMYCIN 500 MG TAB PO SCH (09:00)
--- NOTE | 2017-11-27 11:17 | P.DS ---
Providers Date of admission: 11/25/17 17:41 Expected date of discharge: 11/26/17 Attending physician: Mervat Gibbons Consults: 11/25/17 14:28 Consult Physician Routine Consulting Provider: Iona Masters Consult Reason/Comments: chest pain Do you want consulting provider notified?: Already Contacted Primary care physician: Hugo Preston [facility] Course: This is a 57-year-old female patient of Dr. Hugo Preston with past medical history of COPD, gastroesophageal reflux disease, hypertension, hypothyroidism, migraine headaches, insomnia, aortic aneurysm, tobacco use and dependence, marijuana use.patient states that she has had some chest pain for last couple of weeks but yesterday became really bad. She realized her blood pressure was elevated and that made her come into the hospital for evaluation. She does have a cough with some shortness of breath as well as tenderness to the chest wall. She is not on home O2. Her senior accounting manager is Dr. Imani Wray. She is normally taking ibuprofen at home. She denies any history of DVT. She does have intermittent lower extremity edema. She uses a CPAP for obstructive sleep apnea. Patient also has Pulmicort and Combivent inhalers at home which she has been using. Patient is a smoker of half pack per day for 48 years. She recently quit smoking for 4 years and started back in October. She is on and Friday. She denies any alcohol use. CT angiogram of the aorta done on November 17 reveals no evidence of aortic aneurysm , small sliding type hiatal hernia, simple cyst in the left kidney. Patient presented to [facility] emergency center for evaluation. Chest x-ray was normal. EKG was a normal sinus rhythm with no acute ST changes. Vital signs were stable. Patient was afebrile. White count was 6.4, hemoglobin 13.5, blood sugar 122, electrolytes within normal limits. Creatinine 0.95. Troponin was negative. ProBNP was 70. Patient was placed on the observation unit and cardiology consult requested. Troponins are now negative on 3 draws. Cardiology consult is appreciated. Echocardiogram reveals EF of 55-60%, moderate concentric left ventricular hypertrophy. Patient had recent Lexiscan stress test in the office which was negative. Patient has been cleared from cardiology for discharge and follow-up with Dr. Imani Wray in 2-3 weeks.however, patient has very tight lung sounds and continues to have shortness of breath. We are planning to keep her here for COPD exacerbation and started her on DuoNeb treatments, Pulmicort and Solu-Medrol IV. 11/26: This morning, patient states her breathing is better and she still has some cough but this is also improving. Pulse ox is 93% on room air. She states her chest pain is still there on and off and she has been on Motrin. Patient has been encouraged to stop smoking which she agrees to do and continue on Chantix. Patient will be discharged home today in stable condition. Discharge diagnoses: 1.COPD exacerbation. 2. chest pain secondary to costochondritis. 3. Acute on chronic tracheal bronchitis. 3. hyperlipidemia. 4. hypertension. 5. tobacco use and dependence. 6. hypothyroidism. 7. chronic back pain. 8. gastroesophageal reflux disease. Discharge plan: return home Impression and plan of care have been directed as dictated by the signing physician. Shanthi Potter nurse practitioner acting as scribe for signing physician. Patient Condition at Discharge: Good Plan - Discharge Summary Discharge Rx Participant: No New Discharge Prescriptions: New Azithromycin [Zithromax] 500 mg PO DAILY #5 tab Famotidine [Pepcid] 20 mg PO DAILY #30 tablet predniSONE 0 mg PO DIRECTED #64 tab Continue traZODone HCL [Desyrel] 100 mg PO HS Budesonide [Pulmicort Flexhaler] 2 puff INHALATION RT-DAILY Omeprazole [PriLOSEC] 20 mg PO BID Varenicline [Chantix Continuing Pack] 1 mg PO BID Clindamycin Topical Soln [Cleocin-T Topical Soln] 1 applic TOPICAL BID SUMAtriptan SUCCINATE [Imitrex] 100 mg PO DAILY PRN PRN Reason: Migraine Headache Montelukast [Singulair] 10 mg PO HS Levothyroxine Sodium [Synthroid] 200 mcg PO DAILY Terazosin [Hytrin] 1 mg PO HS Naproxen [Naprosyn] 500 mg PO Q12HR PRN PRN Reason: Pain Metoprolol Tartrate [Lopressor] 25 mg PO BID Baclofen [Lioresal] 10 mg PO TID PRN PRN Reason: Pain Atorvastatin [Lipitor] 10 mg PO HS Ergocalciferol (Vitamin D2) [Vitamin D2] 50,000 unit PO BUCKLEY Changed Ipratropium/Albuterol Sulfate [Combivent Respimat Inhaler] 1 puff INHALATION RT-QID #0 Discharge Medication List Budesonide [Pulmicort Flexhaler] 2 puff INHALATION RT-DAILY 11/21/14 [History] Omeprazole [PriLOSEC] 20 mg PO BID 11/21/14 [History] traZODone HCL [Desyrel] 100 mg PO HS 11/21/14 [History] Clindamycin Topical Soln [Cleocin-T Topical Soln] 1 applic TOPICAL BID 12/27/15 [History] Montelukast [Singulair] 10 mg PO HS 12/27/15 [History] SUMAtriptan SUCCINATE [Imitrex] 100 mg PO DAILY PRN 12/27/15 [History] Varenicline [Chantix Continuing Pack] 1 mg PO BID 12/27/15 [History] Atorvastatin [Lipitor] 10 mg PO HS 11/24/17 [History] Baclofen [Lioresal] 10 mg PO TID PRN 11/24/17 [History] Ergocalciferol (Vitamin D2) [Vitamin D2] 50,000 unit PO BUCKLEY 11/24/17 [History] Levothyroxine Sodium [Synthroid] 200 mcg PO DAILY 11/24/17 [History] Metoprolol Tartrate [Lopressor] 25 mg PO BID 11/24/17 [History] Naproxen [Naprosyn] 500 mg PO Q12HR PRN 11/24/17 [History] Terazosin [Hytrin] 1 mg PO HS 11/24/17 [History] Azithromycin [Zithromax] 500 mg PO DAILY #5 tab 11/26/17 [Rx] Famotidine [Pepcid] 20 mg PO DAILY #30 tablet 11/26/17 [Rx] Ipratropium/Albuterol Sulfate [Combivent Respimat Inhaler] 1 puff INHALATION RT- QID #0 11/26/17 [Rx] predniSONE 0 mg PO DIRECTED #64 tab 11/26/17 [Rx] Follow up Appointment(s)/Referral(s): Nieves Wray MD [STAFF PHYSICIAN] - 12/09/17 4:00 pm (PLEASE KEEP PREVIOUS APPT) Hugo Preston MD [Primary Care Provider] - 11/28/17 1:45 pm Patient Instructions/Handouts: Chronic Bronchitis (DC)
== END 2017-11-26 16:30 | disposition home or self-care (01) | DRG 191 ==
LOC: EC 19:26 → 3OBS 22:10 → OBSVTOIN 11-25 17:41 → 3SUR 11-25 20:08
PROVIDERS: ADMIT Internal Medicine; ATTEND Internal Medicine
DX: J44.1 Chronic obstructive pulmonary disease with (acute) exacerbation (principal); Z68.41 Body mass index [BMI] 40.0-44.9, adult; E66.01 Morbid (severe) obesity due to excess calories; I11.9 Hypertensive heart disease without heart failure; I77.810 Thoracic aortic ectasia; K44.9 Diaphragmatic hernia without obstruction or gangrene; M94.0 Chondrocostal junction syndrome [Tietze]; E78.5 Hyperlipidemia, unspecified; E03.9 Hypothyroidism, unspecified; G89.29 Other chronic pain; K21.9 Gastro-esophageal reflux disease without esophagitis; G43.909 Migraine, unspecified, not intractable, without status migrainosus; G47.00 Insomnia, unspecified; G47.33 Obstructive sleep apnea (adult) (pediatric); M54.9 Dorsalgia, unspecified; F17.210 Nicotine dependence, cigarettes, uncomplicated; Z71.6 Tobacco abuse counseling; Z79.890 Hormone replacement therapy; Z79.51 Long term (current) use of inhaled steroids; Z79.899 Other long term (current) drug therapy; Z71.3 Dietary counseling and surveillance; Z82.49 Family history of ischemic heart disease and other diseases of the circulatory system; Z83.3 Family history of diabetes mellitus; Z80.1 Family history of malignant neoplasm of trachea, bronchus and lung
CPT/HCPCS: 36415; 71046; 80053; 82550; 82553; 83036; 83690; 83735; 83880; 84484; 85025; 85610; 85730; 93005; 93306; 94640; 94760; 96374; 96375; 99285

== ENCOUNTER → 2017-12-30 | Outpatient (CLI) | payer MEDICARE, OTHER ==
--- NOTE | 2017-12-30 19:53 | PN ---
PROGRESS NOTE Caleb is a 57-year-old female patient who was diagnosed having obstructive sleep apnea. The patient initially presented to me with symptoms of insomnia and sleep fragmentation. Upon further investigation, she was found to have moderate to severe obstructive sleep apnea with an AHI of 28, worse during REM. She also demonstrated severe nocturnal oxygen desaturation. She underwent CPAP therapy and she was titrated to a CPAP pressure of 16 cm of water. I gave this patient an APAP with a minimum pressure of 10 and maximum pressure of 16 with a C-flex of 3. On today's evaluation, the patient is coming in for a followup. I checked her CPAP setting, and her compliancy is very poor. She is unable to tolerate the treatment, knowing that the patient is having an excessive amount of leaks around the mask. Her leak factor is more than 105 L/minute. I noted that the mask itself was quite large and the patient is having significant leaks around her chin. Based on that, we took some time trialing out different masks. We tried the AirFit F20 medium-sized and we tried the Ronel View medium-sized. She liked the Ronel View, and this turned out to be a perfect fit for her. The pressure setting will be kept unchanged at this point, with an APAP at a minimum pressure of 10 and maximum pressure of 16. Further recommendations will be done based on her overall clinical response. I think she will do better with this current max setting, as the patient has significant sleep apnea and she is committed to the treatment. HER CURRENT VITALS: BP is 110/72, pulse 100, respirations 16, temperature 98.0. Weight is 271. GENERAL APPEARANCE: Obese, calm, comfortable. Head is atraumatic, normocephalic. Neck is short, supple. Mallampati class IV. There is no goiter or neck masses. LUNGS: Clear to auscultation. Heart sounds are regular rate and rhythm. Normal S1, S2. No S3, S4. No murmurs. ABDOMEN: Soft, non-tender. No organomegaly. EXTREMITIES: No edema. No cyanosis or clubbing. REVIEW OF SYSTEMS: Twelve-point review of systems was done. Positive findings are all mentioned above in the history of present illness. Still symptomatic in terms of her sleep apnea. There may be a component of insomnia in addition. The predominant pathology, however, seems to be obstructive sleep apnea, based on her sleep study. IMPRESSION: 1. Symptomatic obstructive sleep apnea, moderate in severity, with an AHI of 28, worse during REM. 2. Severe nocturnal oxygen desaturation secondary to obstructive sleep apnea. 3. Severe sleep fragmentation secondary to obstructive sleep apnea. 4. Poor mask fitting while on CPAP therapy. 5. Chronic hypersomnia. 6. Obesity with a body mass index of 42. 7. Hypothyroidism. 8. Migraines. PLAN: 1. Encourage weight loss. 2. The patient was fitting to an Ronel View full-face mask. 3. The patient will see me back in a short-term followup to assess the clinical response and compliance. Will continue to follow. Would like to keep her machine, and she needs to demonstrate improved compliancy to continue with the treatment. MMSHREYA / XIOMARAN: [id number] /
== END | disposition home or self-care (01) ==
LOC: SLEEP 14:17
PROVIDERS: ATTEND Internal Medicine Critical Care Medicine
DX: G47.33 Obstructive sleep apnea (adult) (pediatric) (principal); E66.9 Obesity, unspecified; E03.9 Hypothyroidism, unspecified; G43.909 Migraine, unspecified, not intractable, without status migrainosus; Z68.41 Body mass index [BMI] 40.0-44.9, adult

== ENCOUNTER → 2018-01-21 | Outpatient (CLI) | payer MEDICARE, OTHER ==
--- NOTE | 2018-01-21 14:46 | PN ---
PROGRESS NOTE Caleb is coming in for a short-term followup regarding her CPAP compliancy. She has symptomatic obstructive sleep apnea with an AHI of 28, worse during REM. She was also found to have no severe nocturnal oxygen desaturation. She was given CPAP which is an APAP, minimum pressure of 10 and maximum pressure of 16. During her last visit she had poor compliance and this was mainly related to mask leaks. I offered an Ronel View full-face mask. On today's evaluation she is looking better. Based on a 1 week compliancy the patient has been averaging 4.6 hours of CPAP use per night and her AHI is less than 1. Leak is only 28 L/minute. Treatment response is improved and the patient is feeling better. Her sleep quality is improved and she is waking up much more refreshed and alert during the day. She is committed for long-term treatment. She is also seeking bariatric surgery and she is currently undergoing a psychiatric evaluation to complete her bariatric surgery workup. For the most part, she is happy and the treatment is headed towards success in terms of her CPAP treatment. REVIEW OF SYSTEMS: 12-point review of system was done. Positive findings are mentioned in history of present illness. She has history of weight gain. Her BMI is 44.4. She also has history of chronic COPD and she has chronic exertional dyspnea and she needs to be followed up at the Pulmonary Clinic. Other comorbidities including migraine. Currently no active headaches. No nausea or vomiting. No chest pain. No heartburn at nighttime. PHYSICAL EXAMINATION: BP is 117/72, pulse 78, respirations 16, temperature 97.6, saturation 94% on room air. BMI 44.4, weight 267. Height is 5 feet 5 inches. GENERAL APPEARANCE: Obese, calm, comfortable. HEAD: Atraumatic, normocephalic. NECK: Short, supple. No goiter or neck masses. LUNGS: Clear to auscultation. HEART: Sounds regular rhythm. Normal S1, S2. No S3. No murmurs. ABDOMEN: Soft, nontender. No organomegaly. EXTREMITIES: No edema. No cyanosis or clubbing. IMPRESSION: 1. Symptomatic obstructive sleep apnea with AHI of 28.2. The patient underwent a successful CPAP titration. She is currently undergoing successful CPAP treatment with an APAP, minimum pressure of 10 and maximum pressure of 16. 2. Sleep fragmentation improving. 3. Hypersomnia, improving. 4. Chronic obstructive pulmonary disease. 5. Obesity. 6. Hypothyroidism. 7. Migraines. PLAN: 1. Continue APAP at same level of pressure with an Ronel View full-face mask. 2. Encourage weight loss. 3. See me in the pulmonary clinic regarding her COPD. MMTRACIEL / IJN: [id number] /
== END | disposition home or self-care (01) ==
LOC: SLEEP 12:53
PROVIDERS: ATTEND Internal Medicine Critical Care Medicine
DX: G47.33 Obstructive sleep apnea (adult) (pediatric) (principal); J44.9 Chronic obstructive pulmonary disease, unspecified; E66.9 Obesity, unspecified; E03.9 Hypothyroidism, unspecified; G43.909 Migraine, unspecified, not intractable, without status migrainosus; Z99.89 Dependence on other enabling machines and devices; Z68.41 Body mass index [BMI] 40.0-44.9, adult

== ENCOUNTER → 2018-04-06 | Outpatient (CLI) | payer MEDICARE, OTHER ==
[2018-04-06 13:36] VITALS: BP 112/86; PULSE 80; TEMP 98.2; BMI 43.2
[2018-04-06 14:54] LABS: HCT 41.1 % (34.0-46.0); HGB 13.1 gm/dL (11.4-16.0); Hypochromasia Slight; MCH 29.7 pg (25.0-35.0); MCHC 31.8 g/dL (31.0-37.0); MCV 93.5 fL (80.0-100.0); Mean Platelet Volume 7.7; Platelet Count 219 k/uL (150-450); RDW 13.2 % (11.5-15.5); WBC 7.6 k/uL (3.8-10.6)
[2018-04-06 15:14] LABS: Albumin 3.8 g/dL (3.5-5.0); Calcium 9.4 mg/dL (8.4-10.2); Total Bilirubin 0.4 mg/dL (0.2-1.3); Total Protein 6.5 g/dL (6.3-8.2)
--- NOTE | 2018-04-06 16:33 | P.HPBAR ---
Bariatric H&P - History & Physicial H&P Date: 04/06/18 History & Physicial: Visit/CC: sleeve consultation Patient initial contact: Initial weight: 119.703 kg Initial weight in pounds: 263.90 Height: 5 ft 5.5 in Initial BMI: 43.2 Last weight: Current weight: 119.703 kg Current weight in pounds: 263.90 Current BMI: 43.2 [place] body weight (based on NIH guidelines): 57.833 kg Excess body weight loss: 0.0% The patient is a 57 year-old F who presents for Bariatric Assessment. Patient presents today for new patient sleeve gastrectomy consultation. She had previously been authorized for surgery at the [facility] in [facility]. The patient is requesting to undergo sleeve gastrectomy. She had been previously authorized for surgery last month. She has an excellent understanding of the sleeve gastrectomy. Past Medical History Past Medical History: COPD, GERD/Reflux, Hypertension, Thyroid Disorder Additional Past Medical History / Comment(s): migraines, insomnia, obstructive sleep apnea on CPAP History of Any Multi-Drug Resistant Organisms: None Reported Past Surgical History: Orthopedic Surgery Additional Past Surgical History / Comment(s): eye surgery, left thumb surgery, bladder surgery Past Anesthesia/Blood Transfusion Reactions: No Reported Reaction Past Psychological History: No Psychological Hx Reported Smoking Status: Current some day smoker Past Alcohol Use History: Rare Additional Past Alcohol Use History / Comment(s): Patient is a smoker of half pack per day for 48 years. She recently quit smoking for 4 years and started back in October. She is on and Friday. She denies any alcohol use. Past Drug Use History: Marijuana - Past Family History Mother Family Medical History: Cancer Additional Family Medical History / Comment(s): mother due to lung cancer Father Family Medical History: Coronary Artery Disease (CAD), Diabetes Mellitus Additional Family Medical History / Comment(s): Father is alive with history of CAD, DM and is on home O2. She does not know any further details. Sister(s) Additional Family Medical History / Comment(s): ETOH Brother(s) Family Medical History: Coronary Artery Disease (CAD) Surgical - Exam Vital Signs Temp Pulse BP 98.2 F 80 112/86 04/06/18 12:48 04/06/18 12:48 04/06/18 12:48 - General well developed, no distress - Eyes PERRL - ENT normal pinna - Neck no masses - Respiratory normal expansion - Cardiovascular Rhythm: regular - Abdomen Abdomen: soft, non tender Results - Labs 04/06/18 13:54 04/06/18 13:54 Abnormal Lab Results - Last 24 Hours (Table) 04/06/18 Range/Units 13:54 BUN 22 H (7-17) mg/dL Glucose 126 H (74-99) mg/dL Diabetes panel 04/06/18 Range/Units 13:54 Sodium 141 (137-145) mmol/L Potassium 4.0 (3.5-5.1) mmol/L Chloride 107 (98-107) mmol/L Carbon Dioxide 26 (22-30) mmol/L BUN 22 H (7-17) mg/dL Creatinine 0.91 (0.52-1.04) mg/dL Glucose 126 H (74-99) mg/dL Calcium 9.4 (8.4-10.2) mg/dL AST 18 (14-36) U/L ALT 33 (9-52) U/L Alkaline Phosphatase 77 (38-126) U/L Total Protein 6.5 (6.3-8.2) g/dL Albumin 3.8 (3.5-5.0) g/dL Thyroid panel 04/06/18 Range/Units 13:54 TSH 1.390 (0.465-4.680) mIU/L Calcium panel 04/06/18 Range/Units 13:54 Calcium 9.4 (8.4-10.2) mg/dL Albumin 3.8 (3.5-5.0) g/dL Pituitary panel 04/06/18 Range/Units 13:54 Sodium 141 (137-145) mmol/L Potassium 4.0 (3.5-5.1) mmol/L Chloride 107 (98-107) mmol/L Carbon Dioxide 26 (22-30) mmol/L BUN 22 H (7-17) mg/dL Creatinine 0.91 (0.52-1.04) mg/dL Glucose 126 H (74-99) mg/dL Calcium 9.4 (8.4-10.2) mg/dL TSH 1.390 (0.465-4.680) mIU/L Adrenal panel 10/22/18 Range/Units 13:54 Sodium 141 (137-145) mmol/L Potassium 4.0 (3.5-5.1) mmol/L Chloride 107 (98-107) mmol/L Carbon Dioxide 26 (22-30) mmol/L BUN 22 H (7-17) mg/dL Creatinine 0.91 (0.52-1.04) mg/dL Glucose 126 H (74-99) mg/dL Calcium 9.4 (8.4-10.2) mg/dL Total Bilirubin 0.4 (0.2-1.3) mg/dL AST 18 (14-36) U/L ALT 33 (9-52) U/L Alkaline Phosphatase 77 (38-126) U/L Total Protein 6.5 (6.3-8.2) g/dL Albumin 3.8 (3.5-5.0) g/dL Bariatric Assessment & Plan Plan: Morbid obesity with BMI 43. Patient will be scheduled for sleeve gastrectomy. She'll be scheduled for EGD prior to this. Bariatric Checklist Checklist: Plan: Checklist: EGD: 1. Hiatal hernia: 2. H. Pylori: HgbA1c: Vitamin D: Smoking: Current some day smoker Primary care physician referral: Hugo Witt) Psychiatry clearance: Cardiology clearance: Sleep study: Diet journal: VTE risk score: VTE risk level: Rehab needs at discharge:
[2018-04-06 18:28] LABS: Vitamin D 25 Hydroxy 38.8 ng/mL (30.0-100.0)
[2018-04-06 20:41] LABS: Hemoglobin A1C 6.7 % (4.0-6.0)
== END | disposition home or self-care (01) ==
LOC: BARWHC3 12:36
PROVIDERS: ATTEND Surgery
DX: E66.01 Morbid (severe) obesity due to excess calories (principal); E55.9 Vitamin D deficiency, unspecified; E44.0 Moderate protein-calorie malnutrition; F17.210 Nicotine dependence, cigarettes, uncomplicated; Z68.41 Body mass index [BMI] 40.0-44.9, adult
CPT/HCPCS: 80053; 82607; 84443; 85027; 82306; 83036; 93005; 36415; G0463; 99211

== ENCOUNTER 2018-04-09 10:54 | Day surgery (SDC) | payer MEDICARE, OTHER ==
[2018-04-08 08:54] VITALS: BMI 42.4
[~2018-04-09 10:54] MED LIST: LACTATED RINGERS 1,000 ML IV SCH
[2018-04-09] MEDS ORDERED: LIDOCAINE 1% 20 ML VIAL (10MG/ML) FOR IV START INTRADERMA ONE (11:20)
[2018-04-09 11:35] VITALS: RESP 18; TEMP 98.2
--- NOTE | 2018-04-09 11:42 | P.GSHP ---
History of Present Illness H&P Date: 04/09/18 Chief Complaint: Morbid obesity This a 57-year-old female undergoing workup for sleeve gastrectomy. Patient is morbidly obese. Her BMI is 43. She's had some minimal GERD. Past Medical History Past Medical History: COPD, GERD/Reflux, Hypertension, Thyroid Disorder Additional Past Medical History / Comment(s): migraines, insomnia, obstructive sleep apnea on CPAP History of Any Multi-Drug Resistant Organisms: None Reported Past Surgical History: Bladder Surgery, Orthopedic Surgery Additional Past Surgical History / Comment(s): eye surgery, left thumb surgery, bladder surgery Past Anesthesia/Blood Transfusion Reactions: No Reported Reaction Smoking Status: Former smoker - Past Family History Mother Family Medical History: Cancer Additional Family Medical History / Comment(s): mother due to lung cancer Father Family Medical History: Coronary Artery Disease (CAD), Diabetes Mellitus Additional Family Medical History / Comment(s): Father is alive with history of CAD, DM and is on home O2. She does not know any further details. Sister(s) Additional Family Medical History / Comment(s): ETOH Brother(s) Family Medical History: Coronary Artery Disease (CAD) Medications and Allergies Home Medications Medication Instructions Recorded Confirmed Type Budesonide [Pulmicort Flexhaler] 2 puff INHALATION RT-DAILY 11/21/14 04/09/18 History Omeprazole [PriLOSEC] 20 mg PO BID 11/21/14 04/09/18 History traZODone HCL [Desyrel] 100 mg PO HS 11/21/14 04/09/18 History Montelukast [Singulair] 10 mg PO HS 12/27/15 04/09/18 History SUMAtriptan SUCCINATE [Imitrex] 100 mg PO DAILY PRN 12/27/15 04/09/18 History Varenicline [Chantix Continuing 1 mg PO BID 12/27/15 04/09/18 History Pack] Atorvastatin [Lipitor] 10 mg PO HS 11/24/17 04/09/18 History Baclofen [Lioresal] 10 mg PO TID PRN 11/24/17 04/09/18 History Ergocalciferol (Vitamin D2) 50,000 unit PO BUCKLEY 11/24/17 04/09/18 History [Vitamin D2] Levothyroxine Sodium [Synthroid] 200 mcg PO DAILY 11/24/17 04/09/18 History Metoprolol Tartrate [Lopressor] 25 mg PO BID 11/24/17 04/09/18 History Terazosin [Hytrin] 1 mg PO HS 11/24/17 04/09/18 History Famotidine [Pepcid] 20 mg PO DAILY #30 tablet 11/26/17 04/09/18 Rx Ipratropium/Albuterol Sulfate 1 puff INHALATION RT-QID #0 11/26/17 04/09/18 Rx [Combivent Respimat Inhaler] Allergies Allergy/AdvReac Type Severity Reaction Status Date / Time No Known Allergies Allergy Verified 04/08/18 08:49 Surgical - Exam Vital Signs Temp Pulse Resp BP Pulse Ox 98.2 F 69 18 126/78 95 04/09/18 11:12 04/09/18 11:12 04/09/18 11:12 04/09/18 11:12 04/09/18 11:12 - General well developed, no distress - Eyes PERRL - ENT normal pinna - Neck no masses - Respiratory normal expansion - Cardiovascular Rhythm: regular - Abdomen Abdomen: soft, non tender Assessment and Plan Assessment: Morbid obesity, BMI 43 GERD We'll perform EGD.
[2018-04-09] MEDS ORDERED: LIDOCAINE 1% INJ 10MG/ML (20 ML MDV) ONE (11:52)
[2018-04-09] MEDS ORDERED: PROPOFOL 10 MG/ML 20 ML VIAL IV ONE (11:52)
--- NOTE | 2018-04-09 12:02 | P.OP ---
Date of Procedure: 04/09/18 Preoperative Diagnosis: Morbid obesity GERD Postoperative Diagnosis: Antral gastritis Small sliding hiatal hernia Procedure(s) Performed: EGD Anesthesia: MAC Surgeon: Navid Coley Pathology: other (Antrum) Condition: stable Disposition: PACU Description of Procedure: The patient's placed on the endoscopy table in the lateral position. She received IV sedation. The gastroscope placed oropharynx passed in the esophagus into the stomach. Scope was then placed through the pylorus. The first and second portion of the duodenum appeared normal. The scope was then brought back the antrum this. Mildly inflamed. A biopsies performed. The scope was retroflexed and remainder the stomach appeared normal. There was a small sliding hiatal hernia. The GE junction was at 38 cm. The distal esophagus. Minimal inflamed. The proximal esophagus appeared normal. Scope withdrawn for patient.
[2018-04-09 12:31] VITALS: BP 106/69; PULSE 66
== END 2018-04-09 12:43 | disposition home or self-care (01) ==
LOC: ORWHC2ENDO 10:54
PROVIDERS: ATTEND Surgery
DX: K29.50 Unspecified chronic gastritis without bleeding (principal); K44.9 Diaphragmatic hernia without obstruction or gangrene; E66.01 Morbid (severe) obesity due to excess calories; Z68.41 Body mass index [BMI] 40.0-44.9, adult; K21.9 Gastro-esophageal reflux disease without esophagitis; J44.9 Chronic obstructive pulmonary disease, unspecified; I10 Essential (primary) hypertension; E07.9 Disorder of thyroid, unspecified; G43.909 Migraine, unspecified, not intractable, without status migrainosus; G47.00 Insomnia, unspecified; G47.33 Obstructive sleep apnea (adult) (pediatric); Z99.89 Dependence on other enabling machines and devices; Z79.51 Long term (current) use of inhaled steroids; Z79.899 Other long term (current) drug therapy; Z79.890 Hormone replacement therapy; Z87.891 Personal history of nicotine dependence
CPT/HCPCS: 88305; 43239; J2001; J2704

== ENCOUNTER → 2018-04-20 | Outpatient (CLI) | payer MEDICARE, OTHER ==
[2018-04-20 14:52] LABS: Basophils % (A) 1 %; Eosinophils # (A) 0.1 k/uL (0-0.7); Eosinophils % (A) 1 %; HCT 44.2 % (34.0-46.0); HGB 14.2 gm/dL (11.4-16.0); Lymphocytes # (A) 2.1 k/uL (1.0-4.8); Lymphocytes % (A) 29 %; MCH 29.2 pg (25.0-35.0); MCHC 32.1 g/dL (31.0-37.0); MCV 90.8 fL (80.0-100.0); Mean Platelet Volume 7.4; Monocytes # (A) 0.4 k/uL (0-1.0); Monocytes % (A) 6 %; Neutrophils # (A) 4.4 k/uL (1.3-7.7); Neutrophils % (A) 62 %; Platelet Count 242 k/uL (150-450); RBC 4.87 m/uL (3.80-5.40); RDW 13.5 % (11.5-15.5); WBC 7.2 k/uL (3.8-10.6)
[2018-04-20 15:00] LABS: Albumin 4.2 g/dL (3.5-5.0); Potassium 3.8 mmol/L (3.5-5.1); Total Bilirubin 0.5 mg/dL (0.2-1.3); Total Protein 7.1 g/dL (6.3-8.2)
== END ==
LOC: LABPAT 14:15
PROVIDERS: ATTEND Surgery
DX: Z01.812 Encounter for preprocedural laboratory examination (principal)
CPT/HCPCS: 36415; 80053; 85025

== ENCOUNTER → 2018-04-20 | Outpatient (CLI) | payer MEDICARE, OTHER ==
[2018-04-20 14:23] VITALS: BP 147/64; PULSE 77; TEMP 98.1; BMI 41.6
--- NOTE | 2018-04-20 15:21 | P.HPBAR ---
Bariatric H&P - History & Physicial H&P Date: 04/20/18 History & Physicial: Visit/CC: presurgical visit Patient initial contact: Initial weight: 119.703 kg Initial weight in pounds: 263.90 Height: 5 ft 5.5 in Initial BMI: 43.2 Last weight: Current weight: 115.212 kg Current weight in pounds: 254.00 Current BMI: 41.6 [place] body weight (based on NIH guidelines): 57.833 kg Excess body weight loss: 7.2% The patient is a 57 year-old F who presents for Bariatric Assessment. Consultation for sleeve history. She is morbidly obese with BMI 42. The patient is an excellent understanding of the procedure as she was already authorized for surgery at a different facility. Past Medical History Past Medical History: COPD, GERD/Reflux, Hypertension, Thyroid Disorder Additional Past Medical History / Comment(s): migraines, insomnia, obstructive sleep apnea on CPAP History of Any Multi-Drug Resistant Organisms: None Reported Past Surgical History: Bladder Surgery, Orthopedic Surgery Additional Past Surgical History / Comment(s): eye surgery, left thumb surgery, EGD Past Anesthesia/Blood Transfusion Reactions: No Reported Reaction Past Psychological History: No Psychological Hx Reported Smoking Status: Former smoker Past Alcohol Use History: Rare Additional Past Alcohol Use History / Comment(s): QUIT SMOKING DECEMBER 2017 Past Drug Use History: Marijuana Additional Drug Use History / Comment(s): LAST USED 04/15/18-INSTRUCTED TO REFRAIN FROM USE FOR AT LEAST 24 HOURS PRIOR TO PROCEDURE - Past Family History Mother Family Medical History: Cancer Additional Family Medical History / Comment(s): mother due to lung cancer Father Family Medical History: Coronary Artery Disease (CAD), Diabetes Mellitus Additional Family Medical History / Comment(s): Father is alive with history of CAD, DM and is on home O2. She does not know any further details. Sister(s) Additional Family Medical History / Comment(s): ETOH Brother(s) Family Medical History: Coronary Artery Disease (CAD) Surgical - Exam Vital Signs Temp Pulse BP 98.1 F 77 147/64 04/20/18 14:18 04/20/18 14:18 04/20/18 14:18 - General well developed, well nourished - Eyes PERRL - ENT normal pinna - Neck no masses - Respiratory normal expansion - Cardiovascular Rhythm: regular - Abdomen Abdomen: soft, non tender Bariatric Assessment & Plan Plan: Morbid obesity, BMI 42. Patient will be scheduled for sleeve gastrectomy. Bariatric Checklist Checklist: Plan: Checklist: EGD: 1. Hiatal hernia: 2. H. Pylori: HgbA1c: Vitamin D: Smoking: Former smoker Primary care physician referral: Hugo Witt) Psychiatry clearance: Cardiology clearance: Sleep study: Diet journal: VTE risk score: VTE risk level: Rehab needs at discharge:
== END | disposition home or self-care (01) ==
LOC: BARWHC3 13:47
PROVIDERS: ATTEND Surgery
DX: Z01.818 Encounter for other preprocedural examination (principal); E66.01 Morbid (severe) obesity due to excess calories; K21.9 Gastro-esophageal reflux disease without esophagitis; G47.33 Obstructive sleep apnea (adult) (pediatric); Z99.89 Dependence on other enabling machines and devices; Z98.890 Other specified postprocedural states; Z68.41 Body mass index [BMI] 40.0-44.9, adult; Z87.891 Personal history of nicotine dependence
CPT/HCPCS: 99211

== ENCOUNTER 2018-04-22 13:50 | Inpatient (IN) | payer MEDICARE, OTHER ==
[2018-04-17 10:00] VITALS: BMI 42.3
[~2018-04-22 13:50] MED LIST changes: +DEXAMETHASONE SOD PHOSPHATE 10 MG/ML 1 ML VIAL IV ONE; +ENOXAPARIN 40 MG/0.4 ML SYRINGE SQ ONE; -LACTATED RINGERS 1,000 ML IV SCH; +LIDOCAINE 1% 20 ML VIAL (10MG/ML) FOR IV START INTRADERMA PRN; +ONDANSETRON 4 MG/2 ML VIAL IVP ONE; +SCOPOLAMINE 1.5MG/72HR PATCH TRANSDERM ONE; +ceFAZolin IN SWFI 2 GM/20 ML SYRINGE IVP ONE
[2018-04-22] MEDS: LACTATED RINGERS 1,000 ML IV SCH (16:13)
--- NOTE | 2018-04-22 17:22 | P.GSHP ---
History of Present Illness H&P Date: 04/22/18 Chief Complaint: Morbid obesity, BMI 42 This a 57-year-old female who's had lifetime problems obesity. Patient presents today for sleeve gastrectomy. Patient has had lifetime problems obesity. She has been well detailed on the procedure sleeve gastrectomy. She is aware the risks of surgery including conversion to the open procedure and injury to the stomach liver spleen. She also aware the risk GERD and dysphagia. Past Medical History Past Medical History: COPD, GERD/Reflux, Hypertension, Thyroid Disorder Additional Past Medical History / Comment(s): migraines, insomnia, obstructive sleep apnea on CPAP History of Any Multi-Drug Resistant Organisms: None Reported Past Surgical History: Bladder Surgery, Orthopedic Surgery Additional Past Surgical History / Comment(s): eye surgery, left thumb surgery, EGD Past Anesthesia/Blood Transfusion Reactions: No Reported Reaction Past Psychological History: No Psychological Hx Reported Smoking Status: Former smoker Past Alcohol Use History: Rare Additional Past Alcohol Use History / Comment(s): QUIT SMOKING DECEMBER 2017 Past Drug Use History: Marijuana Additional Drug Use History / Comment(s): LAST USED 04/15/18-INSTRUCTED TO REFRAIN FROM USE FOR AT LEAST 24 HOURS PRIOR TO PROCEDURE - Past Family History Mother Family Medical History: Cancer Additional Family Medical History / Comment(s): mother due to lung cancer Father Family Medical History: Coronary Artery Disease (CAD), Diabetes Mellitus Additional Family Medical History / Comment(s): Father is alive with history of CAD, DM and is on home O2. She does not know any further details. Sister(s) Additional Family Medical History / Comment(s): ETOH Brother(s) Family Medical History: Coronary Artery Disease (CAD) Medications and Allergies Home Medications Medication Instructions Recorded Confirmed Type Omeprazole [PriLOSEC] 20 mg PO BID 11/21/14 04/22/18 History traZODone HCL [Desyrel] 100 mg PO HS 11/21/14 04/22/18 History Montelukast [Singulair] 10 mg PO HS 12/27/15 04/22/18 History SUMAtriptan SUCCINATE [Imitrex] 100 mg PO DAILY PRN 12/27/15 04/22/18 History Varenicline [Chantix Continuing 1 mg PO BID 12/27/15 04/22/18 History Pack] Atorvastatin [Lipitor] 10 mg PO HS 11/24/17 04/22/18 History Levothyroxine Sodium [Synthroid] 200 mcg PO DAILY 11/24/17 04/22/18 History Metoprolol Tartrate [Lopressor] 25 mg PO BID 11/24/17 04/22/18 History Terazosin [Hytrin] 1 mg PO HS 11/24/17 04/22/18 History Ipratropium/Albuterol Sulfate 1 puff INHALATION RT-QID #0 11/26/17 04/22/18 Rx [Combivent Respimat Inhaler] Umeclidinium Brm/Vilanterol Tr 1 puff INHALATION DAILY 04/13/18 04/22/18 History [Anoro Ellipta 62.5-25 Mcg INH] Clindamycin Gel [Clindamycin 1 applic TOPICAL DAILY 04/17/18 04/22/18 History Phosphate 1% Gel] Iso Pure Whey 1 each PO DAILY 04/17/18 04/22/18 History Allergies Allergy/AdvReac Type Severity Reaction Status Date / Time No Known Allergies Allergy Verified 04/22/18 15:48 Surgical - Exam Vital Signs Temp Pulse Resp BP Pulse Ox 97.6 F 79 16 155/73 97 04/22/18 15:54 04/22/18 15:54 04/22/18 15:54 04/22/18 15:54 04/22/18 15:54 BMI 42 - General well developed, no distress - Eyes PERRL - ENT normal pinna - Neck no masses - Respiratory normal expansion - Cardiovascular Rhythm: regular - Abdomen Abdomen: soft, non tender Assessment and Plan Assessment: Morbid obesity. We'll perform sleeve gastrectomy.
[2018-04-22] MEDS ORDERED: NEOSTIGMINE 1 MG/ML 10 ML VIAL ONE (17:34)
[2018-04-22] MEDS ORDERED: VECURONIUM 10 MG VIAL IV ONE (17:34)
[2018-04-22] MEDS ORDERED: ONDANSETRON 4 MG/2 ML VIAL ONE (17:34)
[2018-04-22] MEDS ORDERED: fentaNYL (PF) 50 MCG/ML 2 ML AMP ONE (17:34)
[2018-04-22] MEDS ORDERED: MIDAZOLAM 2 MG/2 ML VIAL ONE (17:34)
[2018-04-22] MEDS ORDERED: WATER FOR INJECTION, STERILE 10 ML VIAL IV ONE (17:34)
[2018-04-22] MEDS ORDERED: LIDOCAINE 1% INJ 10MG/ML (20 ML MDV) ONE (17:34)
[2018-04-22] MEDS ORDERED: GLYCOPYRROLATE 0.2 MG/ML 2 ML VIAL ONE (17:34)
[2018-04-22] MEDS ORDERED: KETOROLAC 30 MG/ML 1 ML VIAL ONE (17:34)
[2018-04-22] MEDS ORDERED: PROPOFOL 10 MG/ML 20 ML VIAL IV ONE (17:34)
[2018-04-22] MEDS ORDERED: MORPHINE SULFATE 10 MG/ML SYRINGE ONE (17:34)
[2018-04-22] MEDS ORDERED: SUCCINYLCHOLINE CHLORIDE VIAL 200 MG/10 ML VIAL IV ONE (17:34)
[2018-04-22] MEDS ORDERED: BUPIVACAIN-EPI 0.25%-1:200,000 30 ML VIAL SQ ONE (18:17)
[2018-04-22] MEDS ORDERED: diphenhydrAMINE 50 MG/ML 1 ML VIAL IVP PRN (18:50)
[2018-04-22] MEDS ORDERED: NALOXONE 0.4 MG/ML 1 ML VIAL IV PRN (18:50)
[2018-04-22] MEDS ORDERED: HYDROcodone/APAP 15 ML SOLUTION PO PRN (18:50)
--- NOTE | 2018-04-22 18:50 | P.OP ---
Date of Procedure: 04/22/18 Preoperative Diagnosis: Morbid obesity, BMI 42 Postoperative Diagnosis: Morbid obesity, BMI 42 Procedure(s) Performed: Laparoscopic sleeve gastrectomy Anesthesia: NAIN Surgeon: Navid Coley Estimated Blood Loss (ml): 5 Pathology: other (Stomach) Condition: stable Disposition: PACU Description of Procedure: The patient was placed on the operating room table in the supine position. She received general anesthesia and then was placed in dorsal lithotomy position. Her abdomen was prepped and draped in sterile fashion. The skin incision sites were anesthetized 1% local Xylocaine. And then the skin was incised with an 11 blade in the left lateral position. Using a blade less trocar under direct visualization the peritoneal cavity was entered. The abdomen was insufflated and then a 5 mm laparoscope was placed into the peritoneal cavity. A 5 mm trocar was placed in the right epigastric, and right lateral position. A 15 mm trocar was placed in the supra-umbilical position and another 5 mm trocar was placed in the left lateral position. The left lateral lobe of the liver was retracted. The stomach was visualized. The greater curvature of the stomach was then dissected using the Harmonic scissors. The dissection occurred approximately 5 cm from the pylorus to the level of the left eric. There was no hiatal hernia seen. At this point a 40-[place] Islander bougie dilator was placed the oropharynx and passed into the esophagus and into the stomach by the MANAGER STARS. The sleeve gastrectomy was performed by using the powered echelon stapler with a seam guard buttress material. Sequential firings of the stapler were performed. The gastric remnant was then brought out through the 15 mm trocar site. The dilator was withdrawn. And a orogastric tube was replaced into the stomach. The stomach was insufflated with 200 mL of methylene blue normal saline. There was no evidence of extravasation. The abdomen was irrigated there is no bleeding seen. The Miguelangel-Hasmukh device was used to close the 15 mm trocar with 0 Vicryl. Skin was closed with interrupted 3-0 Monocryl sutures once the trochars withdrawn. Dermabond dressing was applied. Patient was sent to recovery in stable condition.
[2018-04-22] MEDS ORDERED: LACTATED RINGERS 1,000 ML IV ONE (19:03)
[2018-04-22] MEDS: HYDROmorphone 0.5 MG/0.5 ML SYRINGE IVP PRN ×2 (19:18→19:21)
[2018-04-22] MEDS ORDERED: ALBUTEROL NEBULIZED 2.5 MG/3 ML INHALATION SCH (20:00)
[2018-04-22] MEDS ORDERED: SUMAtriptan SUCCINATE 50 MG TAB PO PRN (20:47)
[2018-04-22] MEDS: traZODone HCL 100 MG TAB PO SCH (23:42)
[2018-04-22] MEDS: ATORVASTATIN 10 MG TAB PO SCH (23:42)
[2018-04-22] MEDS: METOPROLOL TARTRATE 25 MG TAB PO SCH (23:42)
[2018-04-22] MEDS: DOXAZOSIN 1 MG TAB PO SCH (23:42)
[2018-04-22] MEDS: MONTELUKAST 10 MG TAB PO SCH (23:42)
[2018-04-22] MEDS: KETOROLAC 30 MG/ML 1 ML VIAL IVP SCH (23:49)
[2018-04-22] MEDS: AMPICILLIN-SULBACTAM 3 GM in SODIUM CHLORIDE 0.9% 100 ML IVPB SCH (23:49)
[2018-04-22] MEDS: 0.9% NACL WITH KCL 20 MEQ/L 1,000 ML IV SCH (23:50)
[2018-04-23] MEDS: HYDROmorphone 1 MG/ML 1 ML SYRINGE IVP PRN ×2 (01:59→07:55)
[2018-04-23] MEDS: ONDANSETRON 4 MG/2 ML VIAL IVP PRN ×2 (01:59→10:53)
[2018-04-23] MEDS: LACTATED RINGERS 1,000 ML IV SCH (02:47)
[2018-04-23] MEDS: LEVOTHYROXINE 100 MCG TAB PO SCH (05:09)
[2018-04-23] MEDS: KETOROLAC 30 MG/ML 1 ML VIAL IVP SCH ×4 (05:18→23:42)
[2018-04-23] MEDS: AMPICILLIN-SULBACTAM 3 GM in SODIUM CHLORIDE 0.9% 100 ML IVPB SCH (05:23)
[2018-04-23 06:54] LABS: Basophils % (A) 0 %; Eosinophils % (A) 0 %; HCT 38.8 % (34.0-46.0); HGB 12.1 gm/dL (11.4-16.0); Lymphocytes # (A) 0.8 k/uL (1.0-4.8); Lymphocytes % (A) 8 %; MCHC 31.2 g/dL (31.0-37.0); MCV 92.8 fL (80.0-100.0); Mean Platelet Volume 7.7; Monocytes # (A) 0.3 k/uL (0-1.0); Monocytes % (A) 4 %; Neutrophils # (A) 8.3 k/uL (1.3-7.7); Neutrophils % (A) 87 %; Platelet Count 214 k/uL (150-450); RBC 4.18 m/uL (3.80-5.40); RDW 13.2 % (11.5-15.5); WBC 9.5 k/uL (3.8-10.6)
[2018-04-23 07:02] LABS: Anion Gap 7 mmol/L; Blood Urea Nitrogen 16 mg/dL (7-17); Calcium 8.6 mg/dL (8.4-10.2); Carbon Dioxide 27 mmol/L (22-30); Chloride 106 mmol/L (98-107); Magnesium 1.7 mg/dL (1.6-2.3); Phosphorus 4.4 mg/dL (2.5-4.5); Potassium 4.7 mmol/L (3.5-5.1); Sodium 140 mmol/L (137-145)
[2018-04-23] MEDS: IPRATROPIUM-ALBUTEROL 3 ML NEB INHALATION SCH ×3 (07:24→20:13)
[2018-04-23] MEDS: FORMOTEROL FUMARATE 20 MCG/2 ML NEBU INHALATION SCH ×2 (07:24→20:13)
[2018-04-23] MEDS: METOPROLOL TARTRATE 25 MG TAB PO SCH ×2 (08:48→21:57)
[2018-04-23] MEDS: PANTOPRAZOLE 40 MG TABLET PO SCH (08:51)
[2018-04-23] MEDS: ENOXAPARIN 40 MG/0.4 ML SYRINGE SQ SCH ×2 (08:52→20:58)
[2018-04-23] MEDS: 0.9% NACL WITH KCL 20 MEQ/L 1,000 ML IV SCH ×3 (08:54→23:42)
--- NOTE | 2018-04-23 09:45 | FL ---
EXAMINATION TYPE: FL UGI DATE OF EXAM: 04/23/2018 LIMITED UGI: CLINICAL HISTORY: Morbid Obesity, gastric sleeve surgery yesterday. TECHNIQUE: Limited upper GI esophagram is performed utilizing 20 oz of Omnipaque Isovue-370. A total of 2.16 minutes of fluoroscopic time was utilized during procedure. 27 spot images are saved to PACS . COMPARISON: CTA aorta November 17, 2017 FINDINGS: The patient swallowed contrast without difficulty or delay. Mild underlying esophageal dys motility is present. There is mild delay flow of contrast along the diaphragmatic hiatus into proxim al stomach. There is more moderate to severe delay at proximal anastomosis into sleeve. There is more severe delay at distal anastomosis from sleeve into remnant gastric antrum and duodenal sweep. There is pooling of contrast in distal esophagus with reflux up to proximal one third portion. Patient has increased nausea. Spot overhead image roughly 14 minutes after procedure began shows flow through th e entire sleeve and duodenal sweep without leak. There is persistent pooling of contrast in visualize d mid to distal esophagus causing dilatation. IMPRESSION: No evidence of leak. Moderate to significant obstruction at proximal and distal anastomos is causing increased patient nausea is noted. Consider short-term reevaluation in 1 days time.
[2018-04-23] MEDS: METOCLOPRAMIDE 5 MG/ML 2 ML VIAL IVP SCH ×3 (12:09→23:42)
--- NOTE | 2018-04-23 12:44 | P.PN ---
Subjective Progress Note Date: 04/23/18 57-year-old female seen this morning on rounds. Patient stated that she developed nausea sensation with dry heaves this morning. Denies any shortness of breath chest pain dizziness or lightheadedness. The upper GI report reviewed no evidence of a leak moderate significant obstruction at the proximal and distal anastomosis causing increased patient nausea. Laparoscopic sleeve gastrectomy for morbid obesity BMI 42 done April 22 Objective - Vital Signs Vital signs: Vital Signs Temp 97.8 F 04/23/18 07:00 Pulse 79 04/23/18 07:37 Resp 12 04/23/18 07:00 BP 103/66 04/23/18 07:00 Pulse Ox 96 04/23/18 07:25 Intake & Output 04/22/18 04/23/18 04/23/18 18:59 06:59 18:59 Intake Total 1000 1100 Output Total 15 1420 Balance 985 -320 Intake: IV 1000 0 Intake, IV Titration 1100 Amount 0.9% NaCl with KCl 20 Meq 1000 /l 1,000 ml @ 150 mls/hr IV .Q6H40M [facility] Rx#: [id number] Ampicillin-Sulbactam 3 gm 100 In Sodium Chloride 0.9% 100 ml @ 200 mls/hr IVPB Q6HR [facility] Rx#:[id number] Output: Urine 620 Straight 620 Post Void Residual 800 Estimated Blood Loss 15 Other: Voiding Method Toilet Toilet - Exam Physical exam 57-year-old female resting in bed feels nauseated with dry heaves Lungs adequate air movement bilaterally nasal cannula 3 L no shortness of breath noted Heart S1-S2 audible regular heart rate in the 70s Abdomen obese soft not distended surgical tenderness appropriate surgical dressing sites dry to hypoactive bowel tones reports a nausea sensation dry heaves passing no gas no stool urinating no difficulty Extremities no edema noted - Labs CBC & Chem 7: 04/23/18 06:25 04/23/18 06:25 Labs: Abnormal Lab Results - Last 24 Hours (Table) 04/23/18 Range/Units 06:25 Neutrophils # 8.3 H (1.3-7.7) k/uL Lymphocytes # 0.8 L (1.0-4.8) k/uL Assessment and Plan Assessment: Impression Morbid obesity due to excessive calories BMI 42 Postop April 22. Laparoscopic sleeve gastrectomy for morbid obesity History of obstructive sleep apnea on CPAP therapy Lifetime problem with morbid obesity Hypertension History of esophageal reflux Plan Continue postop bariatric care Continue bariatric clear liquid diet Anti-emetics as ordered Reglan as ordered IV fluid as ordered Repeat labs in the morning Increase activity DVT and GI prophylaxis The above impression and plan of care have been discussed and directed by signing physician. Sandra Euceda nurse practitioner acting as scribe for signing physician.
[2018-04-23] MEDS ORDERED: diphenhydrAMINE 25 MG CAP PO PRN (14:23)
[2018-04-23] MEDS: DOXAZOSIN 1 MG TAB PO SCH (21:57)
[2018-04-23] MEDS: traZODone HCL 100 MG TAB PO SCH (21:57)
[2018-04-23] MEDS: ATORVASTATIN 10 MG TAB PO SCH (21:57)
[2018-04-23] MEDS: MONTELUKAST 10 MG TAB PO SCH (21:57)
--- NOTE | 2018-04-23 23:41 | CONS ---
CONSULTATION DATE OF SERVICE: 04/22/2018. CHIEF COMPLAINT: A 57-year-old with nausea and dry heaves this morning, dizziness, lightheadedness, status post laparoscopic gastric sleeve. She feels gas pressure in her abdomen and upper chest. PHYSICAL EXAMINATION: Vital signs reviewed and stable. Cardiovascular, S1, S2. Lungs clear. GI soft. Hematology negative Homans. Vascular normal dorsalis pedis posterior tib and radial pulse. Ophthalmologic, pupils equal, round, reactive to light and accommodation. ASSESSMENT: 1. Status post gastric sleeve consultation. Remains on prophylactic antibiotics and updraft treatments. 2. Cough. 3. History of hypertension. 4. Gastroesophageal reflux disease. 5. Morbid obesity. Continue current treatments. Home medicines. Updraft treatments. Follow up in next 24 to 48 hours. MMODL / IJN: [id number] /
[2018-04-24] MEDS: IPRATROPIUM-ALBUTEROL 3 ML NEB INHALATION SCH ×4 (00:51→19:35)
[2018-04-24] MEDS: LACTATED RINGERS 1,000 ML IV SCH (04:41)
[2018-04-24] MEDS: 0.9% NACL WITH KCL 20 MEQ/L 1,000 ML IV SCH ×3 (04:41→17:31)
[2018-04-24] MEDS: KETOROLAC 30 MG/ML 1 ML VIAL IVP SCH ×3 (05:15→17:28)
[2018-04-24] MEDS: METOCLOPRAMIDE 5 MG/ML 2 ML VIAL IVP SCH ×4 (05:15→23:34)
[2018-04-24] MEDS: LEVOTHYROXINE 100 MCG TAB PO SCH (05:24)
[2018-04-24] MEDS: ENOXAPARIN 40 MG/0.4 ML SYRINGE SQ SCH ×2 (07:20→20:31)
[2018-04-24] MEDS: FORMOTEROL FUMARATE 20 MCG/2 ML NEBU INHALATION SCH ×2 (09:15→19:35)
[2018-04-24 09:48] LABS: Basophils % (A) 1 %; Eosinophils # (A) 0.1 k/uL (0-0.7); Eosinophils % (A) 1 %; HCT 39.3 % (34.0-46.0); HGB 12.2 gm/dL (11.4-16.0); Hypochromasia Slight; Lymphocytes # (A) 1.9 k/uL (1.0-4.8); Lymphocytes % (A) 24 %; MCHC 31.1 g/dL (31.0-37.0); MCV 93.3 fL (80.0-100.0); Mean Platelet Volume 8.4; Monocytes # (A) 0.5 k/uL (0-1.0); Monocytes % (A) 6 %; Neutrophils # (A) 5.4 k/uL (1.3-7.7); Neutrophils % (A) 67 %; Platelet Count 196 k/uL (150-450); RBC 4.22 m/uL (3.80-5.40); RDW 13.5 % (11.5-15.5)
[2018-04-24 10:12] LABS: Albumin 3.3 g/dL (3.5-5.0); Calcium 8.6 mg/dL (8.4-10.2); Potassium 4.2 mmol/L (3.5-5.1); Total Bilirubin 0.5 mg/dL (0.2-1.3); Total Protein 5.8 g/dL (6.3-8.2)
[2018-04-24] MEDS: METOPROLOL TARTRATE 25 MG TAB PO SCH ×2 (11:03→20:31)
[2018-04-24] MEDS: PANTOPRAZOLE 40 MG TABLET PO SCH (11:03)
--- NOTE | 2018-04-24 11:26 | P.PN ---
<Beba Eucedajames Adam - Last Filed: 04/24/18 11:14> Subjective Progress Note Date: 04/24/18 57-year-old female seen in follow-up visit patient just returned from having esophagram done patient reports continues to feel nauseated cannot drink liquids or keep them down. Patient has had poor oral intake. Currently denying any abdominal pain. The report from the upper GI currently is pending preliminary showed no leak surgical dressing sites dry. No active emesis dry heaves noted States up ambulating in the hallway urinating no difficulty passing gas no stool Laparoscopic sleeve gastrectomy for morbid obesity BMI 42 done April 22 Objective - Vital Signs Vital signs: Vital Signs Temp 98.5 F 04/24/18 07:00 Pulse 82 04/24/18 07:00 Resp 18 04/24/18 07:00 BP 136/77 04/24/18 07:00 Pulse Ox 93 L 04/24/18 07:00 Intake & Output 04/23/18 04/24/18 04/24/18 18:59 06:59 18:59 Intake Total 1200 1875 Balance 1200 1875 Weight 118.841 kg Intake: Intake, IV Titration 1200 1875 Amount 0.9% NaCl with KCl 20 Meq 1200 1875 /l 1,000 ml @ 150 mls/hr IV .Q6H40M [facility] Rx#: [id number] Other: Voiding Method Toilet Toilet Toilet # Voids 3 2 - Exam Physical exam 57-year-old female resting in bed feels nauseated with dry heaves just returned from having esophagram done IV fluid at 150 an hour Lungs adequate air movement bilaterally no shortness of breath noted Heart S1-S2 audible regular heart rate in the 70s Abdomen obese soft not distended surgical tenderness appropriate surgical dressing sites dry to hypoactive bowel tones reports a nausea sensation dry heaves passing no gas no stool urinating no difficulty Extremities no edema noted - Labs CBC & Chem 7: 04/24/18 07:54 04/24/18 07:54 Labs: Abnormal Lab Results - Last 24 Hours (Table) 04/24/18 Range/Units 07:54 Glucose 101 H (74-99) mg/dL AST 40 H (14-36) U/L ALT 60 H (9-52) U/L Total Protein 5.8 L (6.3-8.2) g/dL Albumin 3.3 L (3.5-5.0) g/dL Assessment and Plan Assessment: Impression Morbid obesity due to excessive calories BMI 42 Postop April 22. Laparoscopic sleeve gastrectomy for morbid obesity History of obstructive sleep apnea on CPAP therapy Lifetime problem with morbid obesity Hypertension History of esophageal reflux Plan Follow-up on pending esophagram Continue postop bariatric care Continue bariatric clear liquid diet Anti-emetics as ordered Reglan as ordered IV fluid as ordered Increase activity DVT and GI prophylaxis Progress note dictated for Dr. Koehler on behalf of The above impression and plan of care have been discussed and directed by signing physician. Snadra Euceda nurse practitioner acting as scribe for signing physician. <Fady Koehler - Last Filed: 04/24/18 17:58> Objective - Vital Signs Vital signs: Vital Signs Temp 98.0 F 04/24/18 14:51 Pulse 66 04/24/18 14:51 Resp 18 04/24/18 14:51 BP 129/77 04/24/18 14:51 Pulse Ox 93 L 04/24/18 14:51 Intake & Output 04/23/18 04/24/18 04/24/18 18:59 06:59 18:59 Intake Total 1200 1875 Balance 1200 1875 Weight 118.841 kg Intake: Intake, IV Titration 1200 1875 Amount 0.9% NaCl with KCl 20 Meq 1200 1875 /l 1,000 ml @ 150 mls/hr IV .Q6H40M [facility] Rx#: [id number] Other: Voiding Method Toilet Toilet Toilet # Voids 3 2 3 - Labs CBC & Chem 7: 04/24/18 07:54 04/24/18 07:54 Labs: Abnormal Lab Results - Last 24 Hours (Table) 04/24/18 Range/Units 07:54 Glucose 101 H (74-99) mg/dL AST 40 H (14-36) U/L ALT 60 H (9-52) U/L Total Protein 5.8 L (6.3-8.2) g/dL Albumin 3.3 L (3.5-5.0) g/dL Assessment and Plan Assessment: As above. Patient was still having some dysphagia earlier today. Doing better at this time. Tolerating sips of clears. Today's upper GI still shows severe hesitancy. White blood cell count 8.0. MAXIMUM TEMPERATURE 99.6.
[2018-04-24] MEDS: HYOSCYAMINE ORAL DROPS 1.875 MG/15 ML BOTTLE PO PRN ×3 (11:37→23:34)
[2018-04-24] MEDS: ONDANSETRON 4 MG/2 ML VIAL IVP PRN (14:11)
--- NOTE | 2018-04-24 14:56 | FL ---
EXAMINATION TYPE: FL UGI w esophagus DATE OF EXAM: 04/24/2018 COMPARISON: 01/24/2018 HISTORY: Stenosis at the gastric sleeve. TECHNIQUE: A single contrast UGI study is performed. FINDINGS: Contrast passes from the distal esophagus through the gastric sleeve with severe hesitancy. No extravasation of contrast is evident. No free air is noted during this examination. Overhead radiographs were obtained which are unremarkable. Fluoroscopy time 1.28 minutes. Images: 32 IMPRESSIONS: 1. Severe hesitancy at the gastric sleeve. Contrast passes through the gastric sleeve into the distal stomach.
[2018-04-24] MEDS: MONTELUKAST 10 MG TAB PO SCH (20:31)
[2018-04-24] MEDS: ATORVASTATIN 10 MG TAB PO SCH (20:31)
[2018-04-24] MEDS: DOXAZOSIN 1 MG TAB PO SCH (20:31)
[2018-04-24] MEDS: traZODone HCL 100 MG TAB PO SCH (20:31)
[2018-04-24] MEDS: ACETAMINOPHEN IV (For NPO) 1,000 MG in EMPTY BAG 1 BAG IVPB PRN (22:26)
[2018-04-24] MEDS: SIMETHICONE 40 MG/0.6 ML DROPS 2,000 MG/30 ML BOTTLE PO PRN (23:34)
[2018-04-25] MEDS: 0.9% NACL WITH KCL 20 MEQ/L 1,000 ML IV SCH ×3 (00:10→14:02)
[2018-04-25] MEDS: ONDANSETRON 4 MG/2 ML VIAL IVP PRN (03:25)
[2018-04-25] MEDS: ACETAMINOPHEN IV (For NPO) 1,000 MG in EMPTY BAG 1 BAG IVPB PRN (04:36)
[2018-04-25] MEDS: IPRATROPIUM-ALBUTEROL 3 ML NEB INHALATION SCH ×3 (04:42→13:40)
[2018-04-25] MEDS: SIMETHICONE 40 MG/0.6 ML DROPS 2,000 MG/30 ML BOTTLE PO PRN (05:10)
[2018-04-25] MEDS: HYOSCYAMINE ORAL DROPS 1.875 MG/15 ML BOTTLE PO PRN (05:10)
[2018-04-25] MEDS: METOCLOPRAMIDE 5 MG/ML 2 ML VIAL IVP SCH ×2 (05:10→14:02)
[2018-04-25] MEDS: LACTATED RINGERS 1,000 ML IV SCH (05:13)
[2018-04-25] MEDS: LEVOTHYROXINE 100 MCG TAB PO SCH (05:14)
[2018-04-25] MEDS: PANTOPRAZOLE 40 MG TABLET PO SCH (07:26)
--- NOTE | 2018-04-25 07:55 | PN ---
PROGRESS NOTE SUBJECTIVE: This is a white female, status post gastrectomy and gastric sleeve procedure, is improving. She still has some gas pain, nausea and vomiting. Her breathing is improving with updraft treatments. CARDIOVASCULAR: S1, S2. LUNGS: Clear. GI: Soft. HEMATOLOGY: Negative Homans. PSYCH: Nervous, anxious. Status post gastric sleeve, insulin-dependent diabetes mellitus, hypertension, obesity. Please see further orders. Nausea medications were ordered. MMODL / IJN: [id number] /
[2018-04-25] MEDS: FORMOTEROL FUMARATE 20 MCG/2 ML NEBU INHALATION SCH (08:05)
[2018-04-25] MEDS: ENOXAPARIN 40 MG/0.4 ML SYRINGE SQ SCH (09:08)
[2018-04-25] MEDS: METOPROLOL TARTRATE 25 MG TAB PO SCH (09:08)
[2018-04-25 15:18] VITALS: BP 140/78; PULSE 68; RESP 18; TEMP 98.3
--- NOTE | 2018-04-25 16:13 | P.PN ---
Subjective Progress Note Date: 04/25/18 CHIEF COMPLAINT: Morbid obesity HISTORY OF PRESENT ILLNESS: The patient is a 57-year-old female status post sleeve gastrectomy postop day 3. Her hospitalization was continued secondary to dysphagia which is now resolved. She is tolerating liquids. She is passing flatus and having bowel movements. No reports of nausea or vomiting. She is ambulating frequently and eager to go home. PHYSICAL EXAM: VITAL SIGNS: Currently stable. GENERAL: Well-developed in no acute distress. HEENT: No sclera icterus. Extraocular movements grossly intact. Moist buccal mucosa. Head is atraumatic, normocephalic. Hears conversational speech. No nasal drainage. NECK: Supple without lymphadenopathy. CHEST: Non-labored respirations and equal bilateral excursions. CARDIOVASCULAR: Regular rate with regular rhythm. Palpable 2+ radial pulses. ABDOMEN: Soft. Nondistended. Incisions intact MUSCULOSKELETAL: No clubbing, cyanosis or edema. NEUROLOGIC: No focal or lateralizing signs. Cranial nerves II through XII grossly intact. PSYCH: Appropriate affect. Alert and oriented to person, place and time. SKIN: Well perfused. Good skin turgor. LABS: Reviewed ASSESSMENT: 1. Morbid obesity 2. Status post sleeve gastrectomy PLAN: 1. Discharged instructions and bariatric diet were described in detail. 2. Fluid intake of 64 ounces daily reviewed. 3. Follow-up at the bariatric center as outpatient Objective - Vital Signs Vital signs: Vital Signs Temp 98.3 F 04/25/18 15:00 Pulse 68 04/25/18 15:00 Resp 18 04/25/18 15:00 BP 140/78 04/25/18 15:00 Pulse Ox 95 04/25/18 15:00 Intake & Output 04/24/18 04/25/18 04/25/18 18:59 06:59 18:59 Intake Total 2600 178 Balance 2600 178 Intake: Intake, IV Titration 2600 Amount 0.9% NaCl with KCl 20 Meq 1800 /l 1,000 ml @ 150 mls/hr IV .Q6H40M [facility] Rx#: [id number] ACETAMINOPHEN IV (For NPO 800 ) 1,000 mg In Empty Bag 1 bag @ 400 mls/hr IVPB Q6HR PRN Rx#:[id number] Oral 178 Other: Voiding Method Toilet Toilet # Voids 3 5 - Labs CBC & Chem 7: 04/24/18 07:54 04/24/18 07:54
--- NOTE | 2018-04-25 16:14 | P.DS ---
Providers Date of admission: 04/22/18 13:50 Expected date of discharge: 04/25/18 Attending physician: Navid Coley Consults: 04/22/18 18:50 Consult Physician Routine Consulting Provider: Scott Preston Consult Reason/Comments: Medical management Do you want consulting provider notified?: Yes Primary care physician: Scott Preston - Discharge Diagnosis(es) (1) Body mass index (BMI) of 40.0-44.9 in adult Current Visit: No Status: Acute (2) Essential (primary) hypertension Current Visit: No Status: Acute (3) Morbid (severe) obesity due to excess calories Current Visit: No Status: Acute Hospital Course: CHIEF COMPLAINT: Morbid obesity HISTORY OF PRESENT ILLNESS: The patient is a 57-year-old female status post sleeve gastrectomy postop day 3. Her hospitalization was continued secondary to dysphagia which is now resolved. She is tolerating liquids. She is passing flatus and having bowel movements. No reports of nausea or vomiting. She is ambulating frequently and eager to go home. PHYSICAL EXAM: VITAL SIGNS: Currently stable. GENERAL: Well-developed in no acute distress. HEENT: No sclera icterus. Extraocular movements grossly intact. Moist buccal mucosa. Head is atraumatic, normocephalic. Hears conversational speech. No nasal drainage. NECK: Supple without lymphadenopathy. CHEST: Non-labored respirations and equal bilateral excursions. CARDIOVASCULAR: Regular rate with regular rhythm. Palpable 2+ radial pulses. ABDOMEN: Soft. Nondistended. Incisions intact MUSCULOSKELETAL: No clubbing, cyanosis or edema. NEUROLOGIC: No focal or lateralizing signs. Cranial nerves II through XII grossly intact. PSYCH: Appropriate affect. Alert and oriented to person, place and time. SKIN: Well perfused. Good skin turgor. LABS: Reviewed ASSESSMENT: 1. Morbid obesity 2. Status post sleeve gastrectomy PLAN: 1. Discharged instructions and bariatric diet were described in detail. 2. Fluid intake of 64 ounces daily reviewed. 3. Follow-up at the bariatric center as outpatient Pertinent Studies: Initial esophagram demonstrated obstruction Procedures: Status post sleeve gastrectomy Patient Condition at Discharge: Stable Plan - Discharge Summary Discharge Rx Participant: Yes New Discharge Prescriptions: No Action traZODone HCL [Desyrel] 100 mg PO HS Omeprazole [PriLOSEC] 20 mg PO BID Varenicline [Chantix Continuing Pack] 1 mg PO BID SUMAtriptan SUCCINATE [Imitrex] 100 mg PO DAILY PRN PRN Reason: Migraine Headache Montelukast [Singulair] 10 mg PO HS Levothyroxine Sodium [Synthroid] 200 mcg PO DAILY Terazosin [Hytrin] 1 mg PO HS Metoprolol Tartrate [Lopressor] 25 mg PO BID Atorvastatin [Lipitor] 10 mg PO HS Ipratropium/Albuterol Sulfate [Combivent Respimat Inhaler] 1 puff INHALATION RT-QID #0 Umeclidinium Brm/Vilanterol Tr [Anoro Ellipta 62.5-25 Mcg INH] 1 puff INHALATION RT-DAILY Iso Pure Whey 1 dose PO DAILY Clindamycin Gel [Clindamycin Phosphate 1% Gel] 1 applic TOPICAL DAILY Discharge Medication List Omeprazole [PriLOSEC] 20 mg PO BID 11/21/14 [History] traZODone HCL [Desyrel] 100 mg PO HS 11/21/14 [History] Montelukast [Singulair] 10 mg PO HS 12/27/15 [History] SUMAtriptan SUCCINATE [Imitrex] 100 mg PO DAILY PRN 12/27/15 [History] Varenicline [Chantix Continuing Pack] 1 mg PO BID 12/27/15 [History] Atorvastatin [Lipitor] 10 mg PO HS 11/24/17 [History] Levothyroxine Sodium [Synthroid] 200 mcg PO DAILY 11/24/17 [History] Metoprolol Tartrate [Lopressor] 25 mg PO BID 11/24/17 [History] Terazosin [Hytrin] 1 mg PO HS 11/24/17 [History] Ipratropium/Albuterol Sulfate [Combivent Respimat Inhaler] 1 puff INHALATION RT- QID #0 11/26/17 [Rx] Umeclidinium Brm/Vilanterol Tr [Anoro Ellipta 62.5-25 Mcg INH] 1 puff INHALATION RT-DAILY 04/13/18 [History] Clindamycin Gel [Clindamycin Phosphate 1% Gel] 1 applic TOPICAL DAILY 04/17/18 [ History] Iso Pure Whey 1 dose PO DAILY 04/17/18 [History] Follow up Appointment(s)/Referral(s): Bariatric Center,. [NON-STAFF] - 04/27/18 Patient Instructions/Handouts: Nutrition after Bariatric Surgery (GEN), Bowel Management After Bariatric Surgery (DC), Laparoscopic Sleeve Gastrectomy (DC) Activity/Diet/Wound Care/Special Instructions: No Lifting over 10 pounds in 2 weeks. May shower. No bathtub soaks. Stage I bariatric diet advised. Discharge Disposition: HOME SELF-CARE
== END 2018-04-25 17:12 | disposition home or self-care (01) | DRG 621 ==
LOC: 2ORMAIN 13:50 → 4SSUR 19:07
PROVIDERS: ADMIT Surgery; ATTEND Surgery
PROC: 0DB64Z3 Excision of Stomach, Percutaneous Endoscopic Approach, Vertical (ICD-10-PCS; principal; 2018-04-22 16:10)
DX: E66.01 Morbid (severe) obesity due to excess calories (principal); Z68.41 Body mass index [BMI] 40.0-44.9, adult; E11.9 Type 2 diabetes mellitus without complications; G47.33 Obstructive sleep apnea (adult) (pediatric); I10 Essential (primary) hypertension; J44.9 Chronic obstructive pulmonary disease, unspecified; E07.9 Disorder of thyroid, unspecified; F39 Unspecified mood [affective] disorder; G43.909 Migraine, unspecified, not intractable, without status migrainosus; K21.9 Gastro-esophageal reflux disease without esophagitis; R13.10 Dysphagia, unspecified; Z79.4 Long term (current) use of insulin; Z80.1 Family history of malignant neoplasm of trachea, bronchus and lung; Z82.49 Family history of ischemic heart disease and other diseases of the circulatory system; Z87.891 Personal history of nicotine dependence; Z83.3 Family history of diabetes mellitus; Z99.89 Dependence on other enabling machines and devices; Z79.51 Long term (current) use of inhaled steroids
CPT/HCPCS: 36415; 74240; 80051; 80053; 82310; 82565; 83735; 84100; 84520; 85025; 88307; 94640; 94760; 94762; 99211

== ENCOUNTER 2018-04-28 15:55 | Inpatient (IN) | payer MEDICARE, OTHER ==
[2018-04-28] MEDS: DEXTROSE 5%-LACTATED RINGERS 1,000 ML IV SCH ×2 (17:56→23:13)
[2018-04-28] MEDS: ONDANSETRON 4 MG/2 ML VIAL IVP PRN ×2 (18:04→23:18)
[2018-04-28] MEDS: LORazepam 2 MG/ML INJ IV SCH (18:05)
[2018-04-29 08:10] LABS: Basophils % (A) 0 %; Eosinophils # (A) 0.3 k/uL (0-0.7); Eosinophils % (A) 4 %; HCT 43.9 % (34.0-46.0); HGB 13.8 gm/dL (11.4-16.0); Lymphocytes # (A) 1.4 k/uL (1.0-4.8); Lymphocytes % (A) 18 %; MCH 28.7 pg (25.0-35.0); MCHC 31.5 g/dL (31.0-37.0); Mean Platelet Volume 7.7; Monocytes # (A) 0.5 k/uL (0-1.0); Monocytes % (A) 6 %; Neutrophils # (A) 5.4 k/uL (1.3-7.7); Neutrophils % (A) 69 %; Platelet Count 276 k/uL (150-450); RBC 4.82 m/uL (3.80-5.40); RDW 13.7 % (11.5-15.5); WBC 7.8 k/uL (3.8-10.6)
[2018-04-29 08:26] LABS: Calcium 8.8 mg/dL (8.4-10.2); Potassium 3.9 mmol/L (3.5-5.1)
[2018-04-29] MEDS: DEXTROSE 5%-LACTATED RINGERS 1,000 ML IV SCH ×2 (09:16→18:38)
[2018-04-29] MEDS: ONDANSETRON 4 MG/2 ML VIAL IVP PRN ×3 (09:17→19:26)
--- NOTE | 2018-04-29 13:26 | P.GSHP ---
History of Present Illness H&P Date: 04/29/18 57-year-old female who was a direct admission from the bariatric center on April 28. Patient was just discharged on April 25 after is postop day 3 status post sleeve gastrectomy for morbid obesity patient states she was discharged last Friday was doing fine until that evening when she started having difficulty swallowing Worse on Friday poor oral intake continued to have nausea sensation with dry heaves. stated "I felt like I couldn't swallow get liquids down. Patient reportedly called the bariatric center [facility] was called in for the patient patient stated it did not control the nausea. Presented on Friday for rehydration received IV fluid due to poor oral intake due to dehydration April 28 underwent a esophagram report reviewed severe obstruction at the level of the gastric sleeve no definitive contrast seen passing through into the distal stomach. Patient continues to report having dry heaves inability to keep oral liquids down patient is denying abdominal pain abdomen is soft non-distended surgical dressing sites are dry no frequent stooling. - Review of Systems Comment: Essentially unremarkable except as mentioned in the present illness Past Medical History Past Medical History: COPD, GERD/Reflux, Hypertension, Sleep Apnea/CPAP/BIPAP, Thyroid Disorder Additional Past Medical History / Comment(s): migraines, insomnia, obstructive sleep apnea on CPAP History of Any Multi-Drug Resistant Organisms: None Reported Past Surgical History: Bariatric Surgery, Bladder Surgery, Orthopedic Surgery Additional Past Surgical History / Comment(s): eye surgery, left thumb surgery, EGD sleeve gastrectomy 04-20-18 Past Anesthesia/Blood Transfusion Reactions: No Reported Reaction Smoking Status: Former smoker - Past Family History Mother Family Medical History: Cancer Additional Family Medical History / Comment(s): mother due to lung cancer Father Family Medical History: Coronary Artery Disease (CAD), Diabetes Mellitus Additional Family Medical History / Comment(s): Father is alive with history of CAD, DM and is on home O2. She does not know any further details. Sister(s) Additional Family Medical History / Comment(s): ETOH Brother(s) Family Medical History: Coronary Artery Disease (CAD) Medications and Allergies Home Medications Medication Instructions Recorded Confirmed Type Omeprazole [PriLOSEC] 20 mg PO BID 11/21/14 04/28/18 History traZODone HCL [Desyrel] 100 mg PO HS 11/21/14 04/28/18 History Montelukast [Singulair] 10 mg PO HS 12/27/15 04/28/18 History SUMAtriptan SUCCINATE [Imitrex] 100 mg PO DAILY PRN 12/27/15 04/28/18 History Varenicline [Chantix Continuing 1 mg PO BID 12/27/15 04/28/18 History Pack] Atorvastatin [Lipitor] 10 mg PO HS 11/24/17 04/28/18 History Levothyroxine Sodium [Synthroid] 200 mcg PO DAILY 11/24/17 04/28/18 History Metoprolol Tartrate [Lopressor] 25 mg PO BID 11/24/17 04/28/18 History Terazosin [Hytrin] 1 mg PO HS 11/24/17 04/28/18 History Ipratropium/Albuterol Sulfate 1 puff INHALATION RT-QID #0 11/26/17 04/28/18 Rx [Combivent Respimat Inhaler] Umeclidinium Brm/Vilanterol Tr 1 puff INHALATION RT-DAILY 04/13/18 04/28/18 History [Anoro Ellipta 62.5-25 Mcg INH] Clindamycin Gel [Clindamycin 1 applic TOPICAL DAILY 04/17/18 04/28/18 History Phosphate 1% Gel] Allergies Allergy/AdvReac Type Severity Reaction Status Date / Time No Known Allergies Allergy Verified 04/28/18 18:09 Surgical - Exam Vital Signs Temp Pulse Pulse Ox 97.7 F 84 99 04/28/18 15:45 04/28/18 15:45 04/28/18 15:45 GENERAL APPEARANCE: 57-year-old female patient is alert, oriented, in no acute distress. Sitting up in bed having dry heaves continues to report feels like it 's difficult to swallow liquids VITAL SIGNS: Reviewed HEENT: Head is normocephalic and atraumatic. Pupils are equal and reactive. The nares are patent. Oropharynx is clear without lesions. NECK: Supple without lymphadenopathy. Traches midline. HEART: S1, S2. Regular rate and rhythm. Denying chest pain LUNGS: No crackles or wheezes are heard. Air movement bilaterally ABDOMEN: Soft, nontender, nondistended with good bowel sounds. No peritoneal signs. No palpable organomegaly or masses. Surgical dressing site dry denying abdominal pain continues to experience dry heaves poor oral intake EXTREMITIES: Normal skin color and turgor. No cyanosis, rash, ulceration, clubbing or edema. Radial pedal pulses are 2/4 bilaterally. NEUROLOGICAL: No focal deficits. Strength and sensation are grossly intact. Results - Labs 04/29/18 07:39 04/29/18 07:39 Abnormal Lab Results - Last 24 Hours (Table) 04/29/18 Range/Units 07:39 Chloride 111 H (98-107) mmol/L BUN 22 H (7-17) mg/dL Glucose 133 H (74-99) mg/dL Diabetes panel 04/29/18 Range/Units 07:39 Sodium 143 (137-145) mmol/L Potassium 3.9 (3.5-5.1) mmol/L Chloride 111 H (98-107) mmol/L Carbon Dioxide 25 (22-30) mmol/L BUN 22 H (7-17) mg/dL Creatinine 1.04 (0.52-1.04) mg/dL Glucose 133 H (74-99) mg/dL Calcium 8.8 (8.4-10.2) mg/dL Calcium panel 04/29/18 Range/Units 07:39 Calcium 8.8 (8.4-10.2) mg/dL Pituitary panel 04/29/18 Range/Units 07:39 Sodium 143 (137-145) mmol/L Potassium 3.9 (3.5-5.1) mmol/L Chloride 111 H (98-107) mmol/L Carbon Dioxide 25 (22-30) mmol/L BUN 22 H (7-17) mg/dL Creatinine 1.04 (0.52-1.04) mg/dL Glucose 133 H (74-99) mg/dL Calcium 8.8 (8.4-10.2) mg/dL Adrenal panel 04/29/18 Range/Units 07:39 Sodium 143 (137-145) mmol/L Potassium 3.9 (3.5-5.1) mmol/L Chloride 111 H (98-107) mmol/L Carbon Dioxide 25 (22-30) mmol/L BUN 22 H (7-17) mg/dL Creatinine 1.04 (0.52-1.04) mg/dL Glucose 133 H (74-99) mg/dL Calcium 8.8 (8.4-10.2) mg/dL Assessment and Plan Assessment: Impression Present on admission difficulty swallowing with a esophagram report a severe obstruction at the level of the gastric sleeve no definitive contrast seen passing through the distal stomach Morbid obesity BMI 40 Essential hypertension Status post April 22 laparoscopic sleeve gastrectomy for morbid obesity EGD April 09 showed small sliding hiatal hernia, antral gastritis Present on admission dehydration suspect due to poor oral intake Plan Resume home meds as appropriate Continue postop bariatric care Keep nothing by mouth until evaluated by dr teran Anti-emetics as ordered IV fluid for hydration The above impression and plan of care have been discussed and directed by signing physician. Sandra Euceda nurse practitioner acting as scribe for signing physician.
[2018-04-29] MEDS: PANTOPRAZOLE 40 MG/10 ML VIAL IVP SCH ×2 (15:39→21:18)
[2018-04-29] MEDS: LORazepam 2 MG/ML INJ IV SCH (19:48)
[2018-04-30] MEDS: DEXTROSE 5%-LACTATED RINGERS 1,000 ML IV SCH ×3 (02:54→17:31)
[2018-04-30] MEDS: PANTOPRAZOLE 40 MG/10 ML VIAL IVP SCH ×2 (07:30→19:47)
--- NOTE | 2018-04-30 08:57 | FL ---
EXAMINATION TYPE: FL esophagus cervic/pharynx DATE OF EXAM: 04/30/2018 Comparison 04/28/2018 CLINICAL HISTORY: Status post gastric sleeve Contrast: Pt given 1oz EZ Paque. 1.24min fluoro time Again noted is near complete obstruction at the level of the distal sleeve anastomosis. Possibly a tr ickle of contrast is noted to flow distally. Patient experienced nausea and vomiting following exam c ompletion. IMPRESSION: Complete obstruction at the level of the distal sleeve stenosis. Surgical consultation and direct vis ualization is advised.
[2018-04-30] MEDS: ONDANSETRON 4 MG/2 ML VIAL IVP PRN (10:05)
--- NOTE | 2018-04-30 10:06 | P.PN ---
Progress Note - Text Progress Note Date: 04/30/18 The patient's esophagram was reviewed. The sleeve appears to be dilated. There is known to obstruction within the sleeve itself. The patient does have a gastric outlet obstruction. The patient's esophagram was reviewed with her previous esophagus. There was no evidence of any outlet obstruction of the stomach in the 2 prior esophagus. This is most likely due to some swelling and edema the pylorus. The patient will be placed on Decadron 4 mg IV every 4 around the clock as well as Reglan 10 mg IV every 6 [id number]. I do not want to do an EGD at this time due to the patient being 7 days postoperative. There is concern that a EGD may disrupt the gastric staple line.
[2018-04-30] MEDS: METOCLOPRAMIDE 5 MG/ML 2 ML VIAL IVP SCH ×2 (11:23→17:31)
[2018-04-30] MEDS: DEXAMETHASONE SOD PHOSPHATE 4 MG/ML 1 ML VIAL IV SCH ×2 (11:24→17:31)
--- NOTE | 2018-04-30 11:36 | P.PN ---
Subjective Progress Note Date: 04/30/18 57-year-old female seen this morning at the bedside. The surgeon did review the esophagram report noted with recommendations made. Patient is aware of the treatment plan. start Reglan around the clock with Decadron as ordered. No EGD at this time patient is 7 day postop. Surgeon is concerned that the EGD may disrupt the gastric staple line we'll continue to monitor closely Objective - Vital Signs Vital signs: Vital Signs Temp 98.4 F 04/30/18 07:39 Pulse 65 04/30/18 10:06 Resp 17 04/30/18 10:06 BP 118/69 04/30/18 07:39 Pulse Ox 93 L 04/30/18 07:39 Intake & Output 04/29/18 04/30/18 04/30/18 18:59 06:59 18:59 Intake Total 925 2000 Balance 925 1999 Intake: Intake, IV Titration 875 2000 Amount Dextrose 5%-Lactated 875 1999 Ringers 1,000 ml @ 125 mls/hr IV .Q8H [facility] Rx#: [id number] Oral 50 Other: # Voids 2 3 - Exam Physical exam Pleasant 57-year-old female resting in bed reports a nausea sensation Lungs adequate air movement bilaterally no shortness of breath noted sats are 94 % Heart S1-S2 audible irregular heart rate in 60s Abdomen surgical incision sites try soft nondistended bowel tones present nausea sensation no active emesis nothing by mouth Extremities no edema - Labs CBC & Chem 7: 04/29/18 07:39 04/29/18 07:39 Assessment and Plan Assessment: Impression Present on admission difficulty swallowing with a esophagram report a severe obstruction at the level of the gastric sleeve no definitive contrast seen passing through the distal stomach Morbid obesity BMI 40 Essential hypertension Status post April 22 laparoscopic sleeve gastrectomy for morbid obesity EGD April 09 showed small sliding hiatal hernia, antral gastritis Present on admission dehydration suspect due to poor oral intake Esophagram on April 30 report reviewed obstruction within the sleeve with gastric obstruction likely due to swelling and edema around the pylorus Plan No EGD at this time concerned that it may disrupt the gastric staple line Keep nothing by mouth Continue the Decadron 4 mg IV every 4 hours [id number] as well as Reglan 10 mg IV every 6 hours [id number] Resume home meds as appropriate Continue postop bariatric care Anti-emetics as ordered IV fluid for hydration The above impression and plan of care have been discussed and directed by signing physician. Sandra Euceda nurse practitioner acting as scribe for signing physician.
[2018-04-30] MEDS: LORazepam 2 MG/ML INJ IV SCH (19:46)
[2018-05-01] MEDS: METOCLOPRAMIDE 5 MG/ML 2 ML VIAL IVP SCH ×5 (00:32→23:28)
[2018-05-01] MEDS: DEXAMETHASONE SOD PHOSPHATE 4 MG/ML 1 ML VIAL IV SCH ×5 (00:32→23:28)
[2018-05-01] MEDS: DEXTROSE 5%-LACTATED RINGERS 1,000 ML IV SCH ×4 (00:36→20:59)
[2018-05-01] MEDS: PANTOPRAZOLE 40 MG/10 ML VIAL IVP SCH ×2 (07:57→20:58)
--- NOTE | 2018-05-01 13:44 | P.PN ---
Subjective Progress Note Date: 05/01/18 57-year-old female seen in follow-up visit. States less nausea less dry heaves "feel hungry" no labs pending resting in bed abdomen soft nontender surgical incision sites dry. Patient was started yesterday on Reglan and Decadron [id number] with a noted improvement. EGD will not be done concern for disrupting the gastric staple line plan is to continue to monitor Postop April 22 upper scopic sleeve gastrectomy for morbid obesity Objective - Vital Signs Vital signs: Vital Signs Temp 98.5 F 05/01/18 08:20 Pulse 76 05/01/18 08:20 Resp 12 05/01/18 08:20 BP 108/67 05/01/18 08:20 Pulse Ox 92 L 05/01/18 08:20 Intake & Output 04/30/18 05/01/18 05/01/18 18:59 06:59 18:59 Intake Total 1050 1000 Balance 1050 1000 Weight 108.862 kg Intake: Intake, IV Titration 1000 1000 Amount Dextrose 5%-Lactated 1000 1000 Ringers 1,000 ml @ 125 mls/hr IV .Q8H [facility] Rx#: [id number] Oral 50 0 Other: Voiding Method Toilet # Voids 3 3 - Exam Physical exam Pleasant 57-year-old female resting in bed reports a hungry sensation no further episodes of nausea or dry heaves Lungs adequate air movement bilaterally no shortness of breath noted sats are 94 % Heart S1-S2 audible irregular heart rate in 60s Abdomen surgical incision sites dry soft nondistended bowel tones present nausea sensation improved nothing by mouth not distended nontender no stool Extremities no edema - Labs CBC & Chem 7: 04/29/18 07:39 04/29/18 07:39 Assessment and Plan Assessment: Impression Present on admission difficulty swallowing with a esophagram report a severe obstruction at the level of the gastric sleeve no definitive contrast seen passing through the distal stomach Morbid obesity BMI 40 Essential hypertension Status post April 22 laparoscopic sleeve gastrectomy for morbid obesity EGD April 09 showed small sliding hiatal hernia, antral gastritis Present on admission dehydration suspect due to poor oral intake Esophagram on April 30 report reviewed obstruction within the sleeve with gastric obstruction likely due to swelling and edema around the pylorus Plan Consult dietitian we'll start TPN for nutritional support No EGD at this time concerned that it may disrupt the gastric staple line Keep nothing by mouth Continue the Decadron 4 mg IV every 4 hours [id number] as well as Reglan 10 mg IV every 6 hours [id number] Resume home meds as appropriate Continue postop bariatric care Anti-emetics as ordered IV fluid for hydration The above impression and plan of care have been discussed and directed by signing physician. Sandra Euceda nurse practitioner acting as scribe for signing physician.
[2018-05-01 15:44] LABS: Albumin 3.6 g/dL (3.5-5.0); Calcium 9.5 mg/dL (8.4-10.2); Ionized Calcium 5.1 mg/dL (4.5-5.3); Magnesium 1.7 mg/dL (1.6-2.3); Potassium 3.7 mmol/L (3.5-5.1)
[2018-05-01 15:54] VITALS: BMI 38.7
[2018-05-01] MEDS ORDERED: FAT EMULSION 20% 250 ML IV SCH (17:30)
[2018-05-01] MEDS ORDERED: MVI, ADULT NO.4 WITH VIT K 10 ML, TRACE (CONC-1ML/DOSE) 1 ML in AMINO ACID 4.25%-D10W+L... IV SCH ×3 (17:30)
[2018-05-01] MEDS: ONDANSETRON 4 MG/2 ML VIAL IVP PRN (20:58)
[2018-05-01] MEDS: LORazepam 2 MG/ML INJ IV SCH (20:59)
[2018-05-01] MEDS: 1: MVI, ADULT NO.4 WITH VIT K 10 ML, TRACE (CONC-1ML/DOSE) 1 ML in AMINO ACID 4.25%-D10W IV SCH ×3 (23:28)
[2018-05-02] MEDS: DEXAMETHASONE SOD PHOSPHATE 4 MG/ML 1 ML VIAL IV SCH ×3 (06:25→17:25)
[2018-05-02] MEDS: METOCLOPRAMIDE 5 MG/ML 2 ML VIAL IVP SCH ×3 (06:25→17:26)
[2018-05-02 07:59] LABS: Calcium 9.1 mg/dL (8.4-10.2); Magnesium 1.7 mg/dL (1.6-2.3); Phosphorus 4.8 mg/dL (2.5-4.5); Potassium 3.9 mmol/L (3.5-5.1)
--- NOTE | 2018-05-02 08:33 | FL ---
EXAMINATION TYPE: FL UGI w esophagus DATE OF EXAM: 05/02/2018 COMPARISON: Previous study of yesterday HISTORY: Status post gastric sleeve procedure TECHNIQUE: A single contrast UGI study is performed. FINDINGS: The patient drank contrast with ease. There is minimal holdup of egress of contrast from th e esophagus into the stomach. There is no evidence of extravasation or free air. The ligament of Trei tz is in the normal location. IMPRESSION: STATUS POST GASTRIC SLEEVE PROCEDURE.
[2018-05-02] MEDS: PANTOPRAZOLE 40 MG/10 ML VIAL IVP SCH ×2 (08:51→20:19)
[2018-05-02] MEDS ORDERED: IV FLUID CONTINUATION 1,000 ML IV ONE (10:32)
[2018-05-02] MEDS ORDERED: LIDOCAINE 2% (PF) 20 MG/ML 2 ML AMP SQ ONE (10:36)
[2018-05-02] MEDS: MAGNESIUM SULFATE-D5W PMX 1 GM in DEXTROSE/WATER 1 100ML.BAG IVPB SCH ×3 (11:16→14:44)
[2018-05-02] MEDS: DEXTROSE 5%-LACTATED RINGERS 1,000 ML IV SCH (11:23)
[2018-05-02] MEDS ORDERED: POTASSIUM CHLORIDE 10 MEQ in WATER FOR INJECTION 1 100ML.BAG IVPB ONE (13:00)
[2018-05-02] MEDS: 1: MVI, ADULT NO.4 WITH VIT K 10 ML, TRACE (CONC-1ML/DOSE) 1 ML in AMINO ACID 4.25%-D10W IV SCH ×3 (14:43)
--- NOTE | 2018-05-02 16:57 | P.PN ---
Subjective Progress Note Date: 05/02/18 CHIEF COMPLAINT: Gastric obstruction HISTORY OF PRESENT ILLNESS: the patient is a 57-year-old female who is over 1 week out following a sleeve gastrectomy. She developed acute gastric obstruction. She was readmitted secondary to dehydration and persistent gastric obstruction. She has a PICC line. She was placed on Decadron and Reglan. She denies any nausea. She is tolerating liquids. No reports of abdominal pain. PHYSICAL EXAM: VITAL SIGNS: Currently stable. GENERAL: Well-developed in no acute distress. HEENT: No sclera icterus. Extraocular movements grossly intact. Moist buccal mucosa. Head is atraumatic, normocephalic. Hears conversational speech. No nasal drainage. NECK: Supple without lymphadenopathy. CHEST: Non-labored respirations and equal bilateral excursions. CARDIOVASCULAR: Regular rate with regular rhythm. ABDOMEN: Soft nontender nondistended MUSCULOSKELETAL: No clubbing, cyanosis or edema. NEUROLOGIC: No focal or lateralizing signs. Cranial nerves II through XII grossly intact. PSYCH: Alert and oriented to person, place and time. SKIN: Well perfused. Good skin turgor. LABS: Reviewed ASSESSMENT: 1. Status post sleeve gastrectomy for morbid obesity 2. Acute gastric obstruction PLAN: 1. Repeat esophagram demonstrates resolving acute gastric obstruction 2. Start bariatric clears including protein shakes 3. Continue IV fluid hydration with TPN and PICC line Objective - Vital Signs Vital signs: Vital Signs Temp 97.8 F 05/02/18 14:13 Pulse 55 L 05/02/18 14:13 Resp 16 05/02/18 14:13 BP 142/83 05/02/18 14:13 Pulse Ox 95 05/02/18 14:13 Intake & Output 05/01/18 05/02/18 05/02/18 18:59 06:59 18:59 Intake Total 875 720 400 Balance 875 720 400 Weight 108.862 kg Intake: Intake, IV Titration 875 720 400 Amount Amino Acid 4.25%-D10w+ 0 Lytes*E* 1,000 ml @ 83 mls/hr IV .BY DURATION [facility] Rx#:[id number] Dextrose 5%-Lactated 875 Ringers 1,000 ml @ 125 mls/hr IV .Q8H [facility] Rx#: [id number] Dextrose 5%-Lactated 720 Ringers 1,000 ml @ 80 mls /hr IV .[id number] [facility] Rx#: [id number] Fat Emulsion 20% 250 ml @ 0 20.833 mls/hr IV MoWeFr [facility] Rx#:[id number] Magnesium Sulfate-D5w Pmx 300 1 gm In Dextrose/Water 1 100ml.bag @ 100 mls/hr IVPB Q1H [facility] Rx#: [id number] Mvi, Adult No.4 with Vit 0 K 10 ml Trace (Conc-1Ml/ Dose) 1 ml In Amino Acid 4.25%-D10w+Lytes*E* 1,000 ml @ 50 mls/hr IV . [id number] [facility] Rx#:[id number] Mvi, Adult No.4 with Vit 0 K 10 ml Trace (Conc-1Ml/ Dose) 1 ml In Amino Acid 4.25%-D10w+Lytes*E* 1,000 ml @ 83 mls/hr IV .BY DURATION [facility] Rx#: [id number] Potassium Chloride 10 meq 100 In Water For Injection 1 100ml.bag @ 100 mls/hr IVPB ONCE ONE Rx#: [id number] Oral 0 Other: Voiding Method Toilet Toilet # Voids 2 3 - Labs CBC & Chem 7: 04/29/18 07:39 05/02/18 06:47 Labs: Abnormal Lab Results - Last 24 Hours (Table) 05/02/18 Range/Units 06:47 Glucose 160 H (74-99) mg/dL Phosphorus 4.8 H (2.5-4.5) mg/dL - Imaging and Cardiology Esophagram reviewed demonstrating contrast into duodenum Assessment and Plan (1) Status post laparoscopic sleeve gastrectomy Current Visit: Yes Status: Acute Code(s): Z98.84 - BARIATRIC SURGERY STATUS SNOMED Code(s): 888718826 (2) Gastric outflow obstruction Current Visit: Yes Status: Acute Code(s): K31.1 - ADULT HYPERTROPHIC PYLORIC STENOSIS SNOMED Code(s): 752250767 (3) Body mass index (BMI) of 40.0-44.9 in adult Current Visit: No Status: Acute Code(s): Z68.41 - BODY MASS INDEX (BMI) 40.0 -44.9, ADULT SNOMED Code(s): 625520569 (4) Morbid (severe) obesity due to excess calories Current Visit: No Status: Acute Code(s): E66.01 - MORBID (SEVERE) OBESITY DUE TO EXCESS CALORIES SNOMED Code(s): 812897402
[2018-05-02] MEDS: INSULIN ASPART 100 UNIT/ML 1 ML 10 ML VIAL SQ SCH (17:26)
[2018-05-02 17:42] LABS: Glucose,Whole Blood 174 mg/dL (75-99)
[2018-05-02] MEDS: LORazepam 2 MG/ML INJ IV SCH (20:23)
[2018-05-03] MEDS: METOCLOPRAMIDE 5 MG/ML 2 ML VIAL IVP SCH ×4 (00:37→17:09)
[2018-05-03] MEDS: DEXAMETHASONE SOD PHOSPHATE 4 MG/ML 1 ML VIAL IV SCH ×4 (00:43→17:11)
[2018-05-03] MEDS: INSULIN ASPART 100 UNIT/ML 1 ML 10 ML VIAL SQ SCH ×4 (00:47→18:10)
[2018-05-03] MEDS: DEXTROSE 5%-LACTATED RINGERS 1,000 ML IV SCH ×2 (00:51→16:04)
[2018-05-03 01:04] LABS: Glucose,Whole Blood 186 mg/dL (75-99)
[2018-05-03] MEDS: 1: MVI, ADULT NO.4 WITH VIT K 10 ML, TRACE (CONC-1ML/DOSE) 1 ML in AMINO ACID 4.25%-D10W IV SCH ×6 (02:09→14:30)
[2018-05-03 06:47] LABS: Glucose,Whole Blood 195 mg/dL (75-99)
[2018-05-03 07:59] LABS: Calcium 8.7 mg/dL (8.4-10.2); Magnesium 2.3 mg/dL (1.6-2.3); Phosphorus 4.1 mg/dL (2.5-4.5); Potassium 4.7 mmol/L (3.5-5.1)
[2018-05-03] MEDS: PANTOPRAZOLE 40 MG/10 ML VIAL IVP SCH ×2 (09:12→20:27)
[2018-05-03 11:26] LABS: Glucose,Whole Blood 163 mg/dL (75-99)
--- NOTE | 2018-05-03 13:46 | P.PN ---
Subjective Progress Note Date: 05/03/18 CHIEF COMPLAINT: Gastric outlet obstruction HISTORY OF PRESENT ILLNESS: The patient is a 57-year-old female who is over 2 weeks out following a sleeve gastrectomy. She developed acute gastric obstruction. She was readmitted secondary to dehydration and persistent gastric obstruction. Repeat esophagram demonstrates resolution of gastric outlet obstruction. She is tolerating liquids. She feels well hydrated. No reports of abdominal pain. She is ambulating. PHYSICAL EXAM: VITAL SIGNS: Currently stable. GENERAL: Well-developed in no acute distress. HEENT: No sclera icterus. Extraocular movements grossly intact. Moist buccal mucosa. Head is atraumatic, normocephalic. Hears conversational speech. No nasal drainage. NECK: Supple without lymphadenopathy. CHEST: Non-labored respirations and equal bilateral excursions. CARDIOVASCULAR: Regular rate with regular rhythm. ABDOMEN: Soft nontender nondistended. Incisions clean dry and intact. MUSCULOSKELETAL: No clubbing, cyanosis or edema. NEUROLOGIC: No focal or lateralizing signs. Cranial nerves II through XII grossly intact. PSYCH: Alert and oriented to person, place and time. SKIN: Well perfused. Good skin turgor. LABS: Reviewed ASSESSMENT: 1. Status post sleeve gastrectomy for morbid obesity 2. Acute gastric obstruction PLAN: 1. May advance to bariatric full liquid diet. 2. Continue IV fluid hydration. 3. Continue TPN at this time Objective - Vital Signs Vital signs: Vital Signs Temp 98.7 F 05/03/18 08:00 Pulse 63 05/03/18 08:00 Resp 18 05/03/18 08:00 BP 157/73 05/03/18 08:00 Pulse Ox 95 05/03/18 08:00 Intake & Output 05/02/18 05/03/18 05/03/18 18:59 06:59 18:59 Intake Total 450 1950 Balance 450 1950 Intake: Intake, IV Titration 400 1950 Amount Magnesium Sulfate-D5w Pmx 300 1 gm In Dextrose/Water 1 100ml.bag @ 100 mls/hr IVPB Q1H [facility] Rx#: [id number] Mvi, Adult No.4 with Vit 1950 K 10 ml Trace (Conc-1Ml/ Dose) 1 ml In Amino Acid 4.25%-D10w+Lytes*E* 1,000 ml @ 83 mls/hr IV .BY DURATION [facility] Rx#: [id number] Potassium Chloride 10 meq 100 In Water For Injection 1 100ml.bag @ 100 mls/hr IVPB ONCE ONE Rx#: [id number] Oral 50 Other: Voiding Method Toilet # Voids 3 2 - Labs CBC & Chem 7: 04/29/18 07:39 05/03/18 06:53 Labs: Abnormal Lab Results - Last 24 Hours (Table) 05/02/18 05/03/18 05/03/18 Range/Units 17:25 00:36 06:29 Sodium (137-145) mmol/L BUN (7-17) mg/dL Glucose (74-99) mg/dL POC Glucose (mg/dL) 174 H 186 H 195 H (75-99) mg/dL 05/03/18 05/03/18 Range/Units 06:53 11:14 Sodium 135 L (137-145) mmol/L BUN 19 H (7-17) mg/dL Glucose 191 H (74-99) mg/dL POC Glucose (mg/dL) 163 H (75-99) mg/dL Assessment and Plan (1) Status post laparoscopic sleeve gastrectomy Current Visit: Yes Status: Acute Code(s): Z98.84 - BARIATRIC SURGERY STATUS SNOMED Code(s): 034837861 (2) Gastric outflow obstruction Current Visit: Yes Status: Acute Code(s): K31.1 - ADULT HYPERTROPHIC PYLORIC STENOSIS SNOMED Code(s): 254740825 (3) Body mass index (BMI) of 40.0-44.9 in adult Current Visit: No Status: Acute Code(s): Z68.41 - BODY MASS INDEX (BMI) 40.0 -44.9, ADULT SNOMED Code(s): 905929484 (4) Morbid (severe) obesity due to excess calories Current Visit: No Status: Acute Code(s): E66.01 - MORBID (SEVERE) OBESITY DUE TO EXCESS CALORIES SNOMED Code(s): 253549197
[2018-05-03 17:33] LABS: Glucose,Whole Blood 172 mg/dL (75-99)
[2018-05-03] MEDS: LORazepam 2 MG/ML INJ IV SCH (20:27)
[2018-05-03 23:42] LABS: Glucose,Whole Blood 188 mg/dL (75-99)
[2018-05-04] MEDS: METOCLOPRAMIDE 5 MG/ML 2 ML VIAL IVP SCH ×3 (00:06→12:43)
[2018-05-04] MEDS: INSULIN ASPART 100 UNIT/ML 1 ML 10 ML VIAL SQ SCH ×3 (00:06→12:43)
[2018-05-04] MEDS: DEXAMETHASONE SOD PHOSPHATE 4 MG/ML 1 ML VIAL IV SCH ×3 (01:00→12:43)
[2018-05-04] MEDS: DEXTROSE 5%-LACTATED RINGERS 1,000 ML IV SCH ×2 (01:04→12:03)
[2018-05-04] MEDS: 1: MVI, ADULT NO.4 WITH VIT K 10 ML, TRACE (CONC-1ML/DOSE) 1 ML in AMINO ACID 4.25%-D10W IV SCH ×3 (02:15)
[2018-05-04 05:38] LABS: Glucose,Whole Blood 183 mg/dL (75-99)
[2018-05-04 07:31] VITALS: BP 121/76; PULSE 57; RESP 18; TEMP 97.7
--- NOTE | 2018-05-04 08:05 | IR ---
EXAMINATION TYPE: IR cvc insert >=5 years DATE OF EXAM: 05/02/2018 COMPARISON: NONE CLINICAL HISTORY: Gastric outlet obstruction Needs long-term intravenous access for total parenteral nutrition. PROCEDURE: After informed consent, the skin overlying the left brachial vein was localized with ultrasound and n oted to be compressible and patent. An ultrasound image was obtained and submitted on the patient's chart. The overlying skin was prepped and draped and Lidocaine was used for local anesthesia. A ski n kris was made with a scalpel. Access was gained to the vein under ultrasound guidance with a 21 ga uge needle and a 0.018 inch wire was advanced. Access site was dilated with Peel-Away sheath and cat heter tailored to the appropriate length and advanced such that the distal tip is at the cavoatrial j unction. Spot image was obtained verifying placement. Catheter was fixed to the skin and a sterile dressing was placed following hemostasis. Catheter was aspirated and flushed with saline. Patient w as discharged in stable condition without complication. Maximal barrier technique is utilized. Ultra sound image is documented on the chart. Ultrasound used with sterile technique. Fluoro time and fluoroscopic images submitted to document procedure: 1.3 minutes fluoroscopy time, 11 2 intraoperative images IMPRESSION: STATUS POST ULTRASOUND AND FLUOROSCOPIC GUIDED PICC LINE PLACEMENT, READY FOR USE. THIS PROCEDURE WAS PERFORMED BY THE UNDERSIGNED.
[2018-05-04 08:10] LABS: Calcium 9.1 mg/dL (8.4-10.2); Magnesium 2.2 mg/dL (1.6-2.3); Phosphorus 4.3 mg/dL (2.5-4.5); Potassium 4.5 mmol/L (3.5-5.1)
[2018-05-04] MEDS: PANTOPRAZOLE 40 MG/10 ML VIAL IVP SCH (08:18)
[2018-05-04 12:06] LABS: Glucose,Whole Blood 156 mg/dL (75-99)
--- NOTE | 2018-05-04 13:05 | P.DS ---
Providers Date of admission: 04/28/18 16:13 Expected date of discharge: 05/04/18 Attending physician: Navid Coley Primary care physician: Stated None Hospital Course: 57-year-old female who is direct admit from the bariatric Center on April 28. Patient was discharged April 25 was postop day 3 status post sleeve gastrectomy for morbid obesity patient reports that she did go home she was able to tolerate liquids but 24 hours after developed difficult time swallowing with inability keep oral liquids down. Patient felt dehydrated. Patient was admitted for hydration. Patient esophagram showed gastric outlet obstruction. Patient was started on Decadron and Reglan [id number]. with a significant improvement in patient's symptoms. Repeat esophagram demonstrated resolution of the gastric outlet obstruction tolerating liquid was felt to be appropriate to be discharged home Patient was instructed to stay on full liquid diet. No chunks of food and yogurt plain yogurt onl Impression Present on admission difficulty swallowing with a esophagram report a severe obstruction at the level of the gastric sleeve no definitive contrast seen passing through the distal stomach Morbid obesity BMI 40 Essential hypertension Status post April 22 laparoscopic sleeve gastrectomy for morbid obesity EGD April 09 showed small sliding hiatal hernia, antral gastritis Present on admission dehydration suspect due to poor oral intake Esophagram on April 30 report reviewed obstruction within the sleeve with gastric obstruction likely due to swelling and edema around the pylorus Repeat esophagram showed resolution of gastric outlet obstruction The above impression and plan of care have been discussed and directed by signing physician. Sandra Euceda nurse practitioner acting as scribe for signing physician. Plan - Discharge Summary Discharge Rx Participant: Yes New Discharge Prescriptions: Continue traZODone HCL [Desyrel] 100 mg PO HS Varenicline [Chantix Continuing Pack] 1 mg PO BID SUMAtriptan SUCCINATE [Imitrex] 100 mg PO DAILY PRN PRN Reason: Migraine Headache Montelukast [Singulair] 10 mg PO HS Levothyroxine Sodium [Synthroid] 200 mcg PO DAILY Terazosin [Hytrin] 1 mg PO HS Metoprolol Tartrate [Lopressor] 25 mg PO BID Atorvastatin [Lipitor] 10 mg PO HS Ipratropium/Albuterol Sulfate [Combivent Respimat Inhaler] 1 puff INHALATION RT-QID #0 Umeclidinium Brm/Vilanterol Tr [Anoro Ellipta 62.5-25 Mcg INH] 1 puff INHALATION RT-DAILY Clindamycin Gel [Clindamycin Phosphate 1% Gel] 1 applic TOPICAL DAILY Discontinued Omeprazole [PriLOSEC] 20 mg PO BID Discharge Medication List traZODone HCL [Desyrel] 100 mg PO HS 11/21/14 [History] Montelukast [Singulair] 10 mg PO HS 12/27/15 [History] SUMAtriptan SUCCINATE [Imitrex] 100 mg PO DAILY PRN 12/27/15 [History] Varenicline [Chantix Continuing Pack] 1 mg PO BID 12/27/15 [History] Atorvastatin [Lipitor] 10 mg PO HS 11/24/17 [History] Levothyroxine Sodium [Synthroid] 200 mcg PO DAILY 11/24/17 [History] Metoprolol Tartrate [Lopressor] 25 mg PO BID 11/24/17 [History] Terazosin [Hytrin] 1 mg PO HS 11/24/17 [History] Ipratropium/Albuterol Sulfate [Combivent Respimat Inhaler] 1 puff INHALATION RT- QID #0 11/26/17 [Rx] Umeclidinium Brm/Vilanterol Tr [Anoro Ellipta 62.5-25 Mcg INH] 1 puff INHALATION RT-DAILY 04/13/18 [History] Clindamycin Gel [Clindamycin Phosphate 1% Gel] 1 applic TOPICAL DAILY 04/17/18 [ History] Follow up Appointment(s)/Referral(s): Navid Coley MD [STAFF PHYSICIAN] - 05/11/18 Activity/Diet/Wound Care/Special Instructions: No tub bath for six weeks. Shower daily. No lifting over 10 pounds for the next 2 weeks. Full liquid diet only plain yogurt only May use ice packs to surgical site. Discharge Disposition: HOME SELF-CARE
[2018-05-04 17:32] LABS: Hemoglobin A1C 6.6 % (4.0-6.0)
== END 2018-05-04 14:51 | disposition home or self-care (01) | DRG 394 ==
LOC: 4SSUR 16:13
PROVIDERS: ADMIT Surgery; ATTEND Surgery
PROC: 02HV33Z Insertion of Infusion Device into Superior Vena Cava, Percutaneous Approach (ICD-10-PCS; principal; 2018-05-04)
DX: K95.89 Other complications of other bariatric procedure (principal); Z68.41 Body mass index [BMI] 40.0-44.9, adult; K31.1 Adult hypertrophic pyloric stenosis; E66.01 Morbid (severe) obesity due to excess calories; E86.0 Dehydration; J44.9 Chronic obstructive pulmonary disease, unspecified; K21.9 Gastro-esophageal reflux disease without esophagitis; K44.9 Diaphragmatic hernia without obstruction or gangrene; K29.70 Gastritis, unspecified, without bleeding; I10 Essential (primary) hypertension; G47.33 Obstructive sleep apnea (adult) (pediatric); G43.909 Migraine, unspecified, not intractable, without status migrainosus; G47.00 Insomnia, unspecified; Z99.89 Dependence on other enabling machines and devices; Z87.891 Personal history of nicotine dependence; Z82.49 Family history of ischemic heart disease and other diseases of the circulatory system; Z80.1 Family history of malignant neoplasm of trachea, bronchus and lung; Z83.3 Family history of diabetes mellitus; Z79.890 Hormone replacement therapy; Z79.51 Long term (current) use of inhaled steroids; Z79.899 Other long term (current) drug therapy
CPT/HCPCS: 36569; 74210; 74240; 76937; 77001; 80048; 82040; 82330; 83036; 83735; 84100; 84478; 85025

== ENCOUNTER → 2018-04-28 | Outpatient (CLI) | payer MEDICARE, OTHER ==
[~2018-04-28] MED LIST changes: -DEXAMETHASONE SOD PHOSPHATE 10 MG/ML 1 ML VIAL IV ONE; -ENOXAPARIN 40 MG/0.4 ML SYRINGE SQ ONE; -LIDOCAINE 1% 20 ML VIAL (10MG/ML) FOR IV START INTRADERMA PRN; +ONDANSETRON 4 MG/2 ML VIAL IVP STA; -SCOPOLAMINE 1.5MG/72HR PATCH TRANSDERM ONE; -ceFAZolin IN SWFI 2 GM/20 ML SYRINGE IVP ONE
[2018-04-28 11:57] VITALS: BMI 39.1
[2018-04-28] MEDS: SODIUM CHLORIDE 0.9% 1,000 ML IV SCH ×2 (12:13→13:04)
[2018-04-28 12:17] VITALS: BP 136/76; PULSE 77; RESP 16; TEMP 98
[2018-04-28 12:38] LABS: ALT 42 U/L (9-52); AST 18 U/L (14-36); Albumin 4.5 g/dL (3.5-5.0); Albumin/Globulin Ratio 1.5; Alkaline Phosphatase 93 U/L (38-126); Anion Gap 16 mmol/L; Blood Urea Nitrogen 32 mg/dL (7-17); Calcium 10.2 mg/dL (8.4-10.2); Carbon Dioxide 22 mmol/L (22-30); Chloride 105 mmol/L (98-107); Glucose 151 mg/dL (74-99); Potassium 4.1 mmol/L (3.5-5.1); Sodium 143 mmol/L (137-145); Total Bilirubin 1.4 mg/dL (0.2-1.3); Total Protein 7.5 g/dL (6.3-8.2)
[2018-04-28 12:41] LABS: Basophils # (A) 0.1 k/uL (0-0.2); Basophils % (A) 1 %; Eosinophils # (A) 0.1 k/uL (0-0.7); Eosinophils % (A) 1 %; HCT 50.4 % (34.0-46.0); Lymphocytes # (A) 1.6 k/uL (1.0-4.8); Lymphocytes % (A) 18 %; MCH 29.2 pg (25.0-35.0); MCHC 32.5 g/dL (31.0-37.0); MCV 89.9 fL (80.0-100.0); Mean Platelet Volume 7.5; Monocytes # (A) 0.5 k/uL (0-1.0); Monocytes % (A) 6 %; Neutrophils # (A) 6.5 k/uL (1.3-7.7); Neutrophils % (A) 72 %; Platelet Count 314 k/uL (150-450); RBC 5.61 m/uL (3.80-5.40); RDW 13.8 % (11.5-15.5)
[2018-04-28 12:46] LABS: HGB 16.4 gm/dL (11.4-16.0)
--- NOTE | 2018-04-28 15:27 | FL ---
EXAMINATION TYPE: FL esophagus cervic/pharynx DATE OF EXAM: 04/28/2018 HISTORY: Vomiting COMPARISON: 04/24/2018 TECHNIQUE: A double contrast esophagram is performed utilizing air and barium. FINDINGS: There is severe delay or obstruction at the level of the GE junction. There may be a trace of contrast passing. Mild irregularity of the mucosa noted. Recommend surgical consultation and direc t visualization as clinically warranted. No definite extravasation. 10 mL of Isovue-370 and 48 second s of fluoroscopy utilized IMPRESSION: There is a severe obstruction at the level the gastric sleeve. Surgical consultation sug gested. No definite contrast seen passing through into the distal stomach.
--- NOTE | 2018-05-04 15:55 | P.HPBAR ---
Bariatric H&P - History & Physicial H&P Date: 04/28/18 History & Physicial: Visit/CC: hydration therapy Patient initial contact: Initial weight: 119.703 kg Initial weight in pounds: 263.90 Height: 5 ft 5 in Initial BMI: 43.9 Last weight: Current weight: 106.594 kg Current weight in pounds: 235.00 Current BMI: 39.1 [place] body weight (based on NIH guidelines): 56.699 kg Excess body weight loss: 20.8% The patient is a 57 year-old F who presents for Bariatric Assessment. Patient presents today for nausea and vomiting issues. She's had very little to drink. Significant abdominal pain. Past Medical History Past Medical History: COPD, GERD/Reflux, Hypertension, Thyroid Disorder Additional Past Medical History / Comment(s): migraines, insomnia, obstructive sleep apnea on CPAP History of Any Multi-Drug Resistant Organisms: None Reported Past Surgical History: Bariatric Surgery, Bladder Surgery, Orthopedic Surgery Additional Past Surgical History / Comment(s): eye surgery, left thumb surgery, EGD sleeve gastrectomy 04-20-18 Past Anesthesia/Blood Transfusion Reactions: No Reported Reaction Smoking Status: Former smoker - Past Family History Mother Family Medical History: Cancer Additional Family Medical History / Comment(s): mother due to lung cancer Father Family Medical History: Coronary Artery Disease (CAD), Diabetes Mellitus Additional Family Medical History / Comment(s): Father is alive with history of CAD, DM and is on home O2. She does not know any further details. Sister(s) Additional Family Medical History / Comment(s): ETOH Brother(s) Family Medical History: Coronary Artery Disease (CAD) Surgical - Exam Vital Signs Temp Pulse BP 98.0 F 85 122/76 04/28/18 11:55 04/28/18 11:55 04/28/18 11:55 - General well developed, no distress - Eyes PERRL - ENT normal pinna - Neck no masses - Respiratory normal expansion - Cardiovascular Rhythm: regular - Abdomen Abdomen: soft, non tender Results - Labs 04/28/18 12:05 04/28/18 12:05 Bariatric Assessment & Plan Plan: Patient's esophagram shows evidence of occlusion in the gastric sleeve. Patient admitted to the hospital for hydration. Her occlusion is most likely due to swelling of the gastric sleeve. She'll be closely observed. Bariatric Checklist Checklist: Plan: Checklist: EGD: 1. Hiatal hernia: 2. H. Pylori: HgbA1c: Vitamin D: Smoking: Former smoker Primary care physician referral: DR. Laura ALONZO Psychiatry clearance: Cardiology clearance: Sleep study: Diet journal: VTE risk score: VTE risk level: Rehab needs at discharge:
== END ==
LOC: BARWHC3 11:32
PROVIDERS: ATTEND Surgery
DX: Z48.815 Encounter for surgical aftercare following surgery on the digestive system (principal); K95.89 Other complications of other bariatric procedure; E86.0 Dehydration; Z98.84 Bariatric surgery status; Z87.891 Personal history of nicotine dependence
CPT/HCPCS: 80053; 85025; 74210; 96360; 96361; 96375; 36415; J2405; Q9967; G0463; 99211

== ENCOUNTER → 2018-05-25 | Outpatient (CLI) | payer MEDICARE, OTHER ==
[2018-05-25 13:23] VITALS: BP 134/79; PULSE 99; TEMP 98.2; BMI 37.0
--- NOTE | 2018-05-25 17:49 | P.HPBAR ---
Bariatric H&P - History & Physicial H&P Date: 05/25/18 History & Physicial: Visit/CC: one month followup Patient initial contact: Initial weight: 119.703 kg Initial weight in pounds: 263.90 Height: 5 ft 5.5 in Initial BMI: 43.2 Last weight: Current weight: 102.693 kg Current weight in pounds: 226.40 Current BMI: 37.0 [place] body weight (based on NIH guidelines): 57.833 kg Excess body weight loss: 27.4% The patient is a 57 year-old F who presents for Bariatric Assessment. The patient presents today for sleeve gastrectomy follow-up. She's had some complaints of nausea and GERD. She states she is able to tolerate liquids. She has felt better over the last few days. Past Medical History Past Medical History: COPD, GERD/Reflux, Hypertension, Sleep Apnea/CPAP/BIPAP, Thyroid Disorder Additional Past Medical History / Comment(s): migraines, insomnia, obstructive sleep apnea on CPAP History of Any Multi-Drug Resistant Organisms: None Reported Past Surgical History: Bariatric Surgery, Bladder Surgery, Orthopedic Surgery Additional Past Surgical History / Comment(s): eye surgery, left thumb surgery, EGD,. sleeve gastrectomy (04-20-18) Past Anesthesia/Blood Transfusion Reactions: No Reported Reaction Past Psychological History: No Psychological Hx Reported Smoking Status: Former smoker Past Alcohol Use History: Rare Additional Past Alcohol Use History / Comment(s): QUIT SMOKING DECEMBER 2017 Past Drug Use History: Marijuana Additional Drug Use History / Comment(s): LAST USED 04/15/18 - Past Family History Mother Family Medical History: Cancer Additional Family Medical History / Comment(s): mother due to lung cancer Father Family Medical History: Coronary Artery Disease (CAD), Diabetes Mellitus Additional Family Medical History / Comment(s): Father is alive with history of CAD, DM and is on home O2. She does not know any further details. Sister(s) Additional Family Medical History / Comment(s): ETOH Brother(s) Family Medical History: Coronary Artery Disease (CAD) Surgical - Exam Vital Signs Temp Pulse BP 98.2 F 99 134/79 05/25/18 13:16 05/25/18 13:16 05/25/18 13:16 - General well developed, no distress - Eyes PERRL - ENT normal pinna - Neck no masses - Respiratory normal expansion - Cardiovascular Rhythm: regular - Abdomen Abdomen: soft, non tender Bariatric Assessment & Plan Plan: Status post sleeve gastrectomy. Patient is doing quite well. We'll contact to need to encourage full liquids. She'll follow-up in one week. Bariatric Checklist Checklist: Plan: Checklist: EGD: 1. Hiatal hernia: 2. H. Pylori: HgbA1c: Vitamin D: Smoking: Former smoker Primary care physician referral: DR. Laura ALONZO Psychiatry clearance: Cardiology clearance: Sleep study: Diet journal: VTE risk score: VTE risk level: Rehab needs at discharge:
== END ==
LOC: BARWHC3 12:46
PROVIDERS: ATTEND Surgery
DX: Z48.815 Encounter for surgical aftercare following surgery on the digestive system (principal); E66.01 Morbid (severe) obesity due to excess calories; Z87.891 Personal history of nicotine dependence; Z98.84 Bariatric surgery status; Z68.37 Body mass index [BMI] 37.0-37.9, adult
CPT/HCPCS: 97803; G0463; 99211

== ENCOUNTER → 2018-06-22 | Outpatient (CLI) | payer MEDICARE, OTHER ==
[2018-06-22 13:56] VITALS: BP 130/79; PULSE 83; RESP 18; TEMP 98.2; BMI 36.1
--- NOTE | 2018-06-22 15:57 | P.HPBAR ---
Bariatric H&P - History & Physicial H&P Date: 06/22/18 History & Physicial: Visit/CC: f/u Patient initial contact: Initial weight: 119.703 kg Initial weight in pounds: 263.90 Height: 5 ft 5.3 in Initial BMI: 43.4 Last weight: Current weight: 99.382 kg Current weight in pounds: 219.10 Current BMI: 36.1 [place] body weight (based on NIH guidelines): 57.379 kg Excess body weight loss: 32.6% The patient is a 57 year-old F who presents for Bariatric Assessment. Patient presents today for sleeve gastrectomy follow-up. She is also another 7 pounds since her last visit. She's had some mild complaints of GERD. She denies any significant dysphagia. Past Medical History Past Medical History: COPD, GERD/Reflux, Hypertension, Sleep Apnea/CPAP/BIPAP, Thyroid Disorder Additional Past Medical History / Comment(s): migraines, insomnia, obstructive sleep apnea on CPAP History of Any Multi-Drug Resistant Organisms: None Reported Past Surgical History: Bariatric Surgery, Bladder Surgery, Orthopedic Surgery Additional Past Surgical History / Comment(s): eye surgery, left thumb surgery, EGD,. sleeve gastrectomy (04-20-18) Past Anesthesia/Blood Transfusion Reactions: No Reported Reaction Past Psychological History: No Psychological Hx Reported Smoking Status: Former smoker Past Alcohol Use History: Rare Additional Past Alcohol Use History / Comment(s): QUIT SMOKING DECEMBER 2017 Past Drug Use History: Marijuana Additional Drug Use History / Comment(s): LAST USED 04/15/18 - Past Family History Mother Family Medical History: Cancer Additional Family Medical History / Comment(s): mother due to lung cancer Father Family Medical History: Coronary Artery Disease (CAD), Diabetes Mellitus Additional Family Medical History / Comment(s): Father is alive with history of CAD, DM and is on home O2. She does not know any further details. Sister(s) Additional Family Medical History / Comment(s): ETOH Brother(s) Family Medical History: Coronary Artery Disease (CAD) Surgical - Exam Vital Signs Temp Pulse Resp BP Pulse Ox 98.2 F 83 18 130/79 96 06/22/18 13:52 06/22/18 13:52 06/22/18 13:52 06/22/18 13:52 06/22/18 13:52 - General well developed, no distress - Eyes PERRL - ENT normal pinna - Neck no masses - Respiratory normal expansion - Abdomen Abdomen: soft, non tender Bariatric Assessment & Plan Plan: Status post sleeve yesterday. Patient is doing quite well. Her GERD is minimal will be observed. She'll follow-up in one month. Bariatric Checklist Checklist: Plan: Checklist: EGD: 1. Hiatal hernia: 2. H. Pylori: HgbA1c: Vitamin D: Smoking: Former smoker Primary care physician referral: DR. Laura ALONZO Psychiatry clearance: Cardiology clearance: Sleep study: Diet journal: VTE risk score: VTE risk level: Rehab needs at discharge:
== END | disposition home or self-care (01) ==
LOC: BARWHC3 13:48
PROVIDERS: ATTEND Surgery
DX: Z48.815 Encounter for surgical aftercare following surgery on the digestive system (principal); Z87.891 Personal history of nicotine dependence; Z98.890 Other specified postprocedural states; Z98.84 Bariatric surgery status
CPT/HCPCS: 99211

== ENCOUNTER → 2018-09-21 | Outpatient (CLI) | payer MEDICARE, OTHER ==
[2018-09-21 13:57] VITALS: BP 117/74; PULSE 62; TEMP 98.4; BMI 31.1
--- NOTE | 2018-09-25 11:45 | P.HPBAR ---
Bariatric H&P - History & Physicial H&P Date: 09/21/18 History & Physicial: Visit/CC: three month follow up Patient initial contact: Initial weight: 119.703 kg Initial weight in pounds: 263.90 Height: 5 ft 5.5 in Initial BMI: 43.2 Last weight: Current weight: 86.183 kg Current weight in pounds: 190.00 Current BMI: 31.1 [place] body weight (based on NIH guidelines): 57.833 kg Excess body weight loss: 54.1% The patient is a 57 year-old F who presents for Bariatric Assessment. Patient presents today for sleeve gastrectomy follow-up. She is doing quite well. She is requesting a cyst to be excised from her right groin. She's had some minimal GERD. Past Medical History Past Medical History: COPD, GERD/Reflux, Hypertension, Sleep Apnea/CPAP/BIPAP, Thyroid Disorder Additional Past Medical History / Comment(s): migraines, insomnia, obstructive sleep apnea on CPAP History of Any Multi-Drug Resistant Organisms: None Reported Past Surgical History: Bariatric Surgery, Bladder Surgery, Orthopedic Surgery Additional Past Surgical History / Comment(s): eye surgery, left thumb surgery, EGD,. sleeve gastrectomy (04-20-18) Past Anesthesia/Blood Transfusion Reactions: No Reported Reaction Past Psychological History: No Psychological Hx Reported Smoking Status: Former smoker Past Alcohol Use History: Rare Additional Past Alcohol Use History / Comment(s): QUIT SMOKING DECEMBER 2017 Past Drug Use History: Marijuana Additional Drug Use History / Comment(s): LAST USED 04/15/18 - Past Family History Mother Family Medical History: Cancer Additional Family Medical History / Comment(s): mother due to lung cancer Father Family Medical History: Coronary Artery Disease (CAD), Diabetes Mellitus Additional Family Medical History / Comment(s): Father is alive with history of CAD, DM and is on home O2. She does not know any further details. Sister(s) Additional Family Medical History / Comment(s): ETOH Brother(s) Family Medical History: Coronary Artery Disease (CAD) Surgical - Exam Vital Signs Temp Pulse BP 98.4 F 62 117/74 09/21/18 13:54 09/21/18 13:54 09/21/18 13:54 - General well developed, well nourished, no distress - Eyes PERRL - ENT normal pinna - Neck no masses - Respiratory normal expansion - Cardiovascular Rhythm: regular - Abdomen Abdomen: soft, non tender Bariatric Assessment & Plan Plan: Status post sleeve gastrectomy. Patient doing quite well. Patient will follow- up in the general surgery office for evaluation skin cyst. She'll follow-up in bariatric clinic in 4 weeks. Bariatric Checklist Checklist: Plan: Checklist: EGD: 1. Hiatal hernia: 2. H. Pylori: HgbA1c: Vitamin D: Smoking: Former smoker Primary care physician referral: DR. Laura ALONZO Psychiatry clearance: Cardiology clearance: Sleep study: Diet journal: VTE risk score: VTE risk level: Rehab needs at discharge:
== END ==
LOC: BARWHC3 13:15
PROVIDERS: ATTEND Surgery
DX: Z09 Encounter for follow-up examination after completed treatment for conditions other than malignant neoplasm (principal); K21.9 Gastro-esophageal reflux disease without esophagitis; E66.01 Morbid (severe) obesity due to excess calories; L72.8 Other follicular cysts of the skin and subcutaneous tissue; G47.33 Obstructive sleep apnea (adult) (pediatric); Z98.84 Bariatric surgery status; Z99.89 Dependence on other enabling machines and devices; Z98.890 Other specified postprocedural states; Z87.891 Personal history of nicotine dependence; Z68.31 Body mass index [BMI] 31.0-31.9, adult
CPT/HCPCS: 99211

== ENCOUNTER 2018-10-20 07:06 | Day surgery (SDC) | payer MEDICARE, OTHER ==
[2018-10-16 11:16] VITALS: BMI 29.9
[~2018-10-20 07:06] MED LIST changes: +DEXAMETHASONE SOD PHOSPHATE 10 MG/ML 1 ML VIAL IV ONE; +HEPARIN SODIUM,PORCINE 5,000 UNIT/ML 1 ML VIAL SQ ONE; +HYDROmorphone 0.5 MG/0.5 ML SYRINGE IVP PRN; +LACTATED RINGERS 1,000 ML IV SCH; +MIDAZOLAM (PF) 2 MG/2 ML VIAL IV PRN; -ONDANSETRON 4 MG/2 ML VIAL IVP STA; +Pre Op ABX Message 1 EACH MISC MISCELLANE ONE; +SCOPOLAMINE 1.5MG/72HR PATCH TRANSDERM ONE
[2018-10-20 07:31] VITALS: RESP 16; TEMP 98.1
[2018-10-20] MEDS ORDERED: LIDOCAINE 1% 20 ML VIAL (10MG/ML) FOR IV START INTRADERMA ONE (07:39)
--- NOTE | 2018-10-20 08:43 | P.GSHP ---
History of Present Illness H&P Date: 10/20/18 Chief Complaint: Chronically inflamed skin lesion This a 58-year-old female who has developed a chronically inflamed skin lesion in her left perineal area. Patient has developed pain and swelling intermittently in this area. She presents today for excision. Past Medical History Past Medical History: COPD, GERD/Reflux, Hyperlipidemia, Hypertension, Sleep Apnea/CPAP/BIPAP, Thyroid Disorder Additional Past Medical History / Comment(s): migraines, insomnia, obstructive sleep apnea on CPAP History of Any Multi-Drug Resistant Organisms: None Reported Past Surgical History: Bariatric Surgery, Bladder Surgery, Orthopedic Surgery Additional Past Surgical History / Comment(s): eye surgery, left thumb surgery, EGD,. sleeve gastrectomy (04-20-18) Past Anesthesia/Blood Transfusion Reactions: No Reported Reaction Smoking Status: Former smoker - Past Family History Mother Family Medical History: Cancer Additional Family Medical History / Comment(s): mother due to lung cancer Father Family Medical History: Coronary Artery Disease (CAD), Diabetes Mellitus Additional Family Medical History / Comment(s): Father is alive with history of CAD, DM and is on home O2. She does not know any further details. Sister(s) Additional Family Medical History / Comment(s): ETOH Brother(s) Family Medical History: Coronary Artery Disease (CAD) Medications and Allergies Home Medications Medication Instructions Recorded Confirmed Type traZODone HCL [Desyrel] 100 mg PO HS 11/21/14 10/20/18 History Montelukast [Singulair] 10 mg PO HS 12/27/15 10/20/18 History Atorvastatin [Lipitor] 10 mg PO HS 11/24/17 10/20/18 History Levothyroxine Sodium [Synthroid] 200 mcg PO DAILY 11/24/17 10/16/18 History Metoprolol Tartrate [Lopressor] 25 mg PO BID 11/24/17 10/16/18 History Ipratropium/Albuterol Sulfate 1 puff INHALATION RT-QID #0 11/26/17 10/20/18 Rx [Combivent Respimat Inhaler] Baclofen [Lioresal] 10 mg PO TID 05/25/18 10/20/18 History Clindamycin Topical Soln 1 applic TOPICAL BID 06/22/18 10/20/18 History [Cleocin-T Topical Soln] Collagen Protein 20.1 gm PO DAILY 06/22/18 10/20/18 History Ergocalciferol (Vitamin D2) 50,000 unit PO [place] 06/22/18 10/20/18 History [Vitamin D2] Omeprazole [PriLOSEC] 20 mg PO AC-BID 06/22/18 10/20/18 History SUMAtriptan SUCCINATE [Imitrex] 100 mg PO BID PRN 06/22/18 10/20/18 History Terazosin [Hytrin] 2 mg PO HS 06/22/18 10/20/18 History Varenicline [Chantix Continuing 1 mg PO DAILY 06/22/18 10/20/18 History Pack] Allergies Allergy/AdvReac Type Severity Reaction Status Date / Time No Known Allergies Allergy Verified 10/20/18 07:26 Surgical - Exam Vital Signs Temp Pulse Resp BP Pulse Ox 98.1 F 69 16 120/71 97 10/20/18 07:30 10/20/18 07:30 10/20/18 07:30 10/20/18 07:30 10/20/18 07:30 - General well developed, well nourished, no distress - Eyes PERRL - ENT normal pinna - Neck no masses - Respiratory normal expansion - Cardiovascular Rhythm: regular - Abdomen Abdomen: soft, non tender - Integumentary 2 cm chronically inflamed skin lesion with evidence of scarring in the left perineal region Assessment and Plan Assessment: Chronically inflamed skin lesion we'll perform excision.
[2018-10-20] MEDS ORDERED: PROPOFOL 10 MG/ML 20 ML VIAL IV ONE (09:03)
[2018-10-20] MEDS ORDERED: KETOROLAC 30 MG/ML 1 ML VIAL ONE (09:03)
[2018-10-20] MEDS ORDERED: fentaNYL (PF) 50 MCG/ML 2 ML AMP ONE (09:03)
[2018-10-20] MEDS ORDERED: MIDAZOLAM 2 MG/2 ML VIAL ONE (09:03)
[2018-10-20] MEDS ORDERED: BUPIVACAINE-EPI 0.5%-1:200,000 10 ML VIAL SQ ONE (09:20)
--- NOTE | 2018-10-20 09:39 | P.OP ---
Date of Procedure: 10/20/18 Preoperative Diagnosis: Right perineal skin lesion Postoperative Diagnosis: Right perineal skin lesion Procedure(s) Performed: Excision of right perineal skin lesion Anesthesia: MAC Surgeon: Navid Coley Estimated Blood Loss (ml): 5 Pathology: other (Right perineal skin lesion) Condition: stable Disposition: PACU Description of Procedure: The patient's placed the operative table in the supine position. She received IV sedation. She is placed in the frog-leg position. The patient skin lesion with in the right perineal area lateral to the vagina. The area prepped and draped usual fashion. The skin was anesthetized 1% local Xylocaine. Elliptical skin incision was made around the lesion and then using cautery the subcu tissues were divided. The skin was closed interrupted 3-0 Monocryl suture. Dermabond was applied. Patient top she will was sent to recovery in stable condition.
[2018-10-20 09:55] VITALS: BP 109/65; PULSE 74
== END 2018-10-20 10:23 | disposition home or self-care (01) ==
LOC: OR 07:06
PROVIDERS: ATTEND Surgery
DX: L72.0 Epidermal cyst (principal); E07.9 Disorder of thyroid, unspecified; E78.5 Hyperlipidemia, unspecified; G47.00 Insomnia, unspecified; G47.33 Obstructive sleep apnea (adult) (pediatric); I10 Essential (primary) hypertension; J44.9 Chronic obstructive pulmonary disease, unspecified; K21.9 Gastro-esophageal reflux disease without esophagitis; L02.31 Cutaneous abscess of buttock; Z82.49 Family history of ischemic heart disease and other diseases of the circulatory system; Z83.3 Family history of diabetes mellitus; Z87.891 Personal history of nicotine dependence; Z98.84 Bariatric surgery status; Z79.890 Hormone replacement therapy; Z79.899 Other long term (current) drug therapy
CPT/HCPCS: 88304; 11423; J2250; J1644; J1100; J2405; J3010; J1885; J2704

== ENCOUNTER 2019-01-01 15:37 | Emergency (ER) | payer MEDICARE, OTHER ==
[2019-01-01 15:53] VITALS: BP 138/83; PULSE 64; RESP 18; TEMP 97.9
--- NOTE | 2019-01-01 16:15 | XR ---
EXAMINATION TYPE: XR shoulder complete RT DATE OF EXAM: 01/01/2019 CLINICAL HISTORY: pain TECHNIQUE: Three views of the right shoulder are obtained. COMPARISON: None FINDINGS: There is no acute fracture/dislocation evident. The acromioclavicular and glenohumeral valentin int spaces appear mildly narrowed. The visualized ribs are intact and unremarkable. IMPRESSION: 1. There is no acute fracture or dislocation. ICD 10 NO FRACTURE, INITIAL EVALUATION
[2019-01-01] MEDS ORDERED: KETOROLAC 60 MG/2 ML VIAL IM STA (17:47)
--- NOTE | 2019-01-01 17:49 | ED ---
Fall HPI - General Chief Complaint: Fall Stated Complaint: Fall Time Seen by Provider: 01/01/19 17:16 Source: patient Mode of arrival: ambulatory - History of Present Illness Initial Comments: Patient is a 58-year-old female who presents emergency Department with complaints of right shoulder pain and right hip pain after taking a fall today. Patient states she has history of vertigo and has not been taking her medication for the last month. Patient states she got up from a seated position to use the restroom when she felt lightheaded and dizzy. Patient states she started at her bathroom counter until it passed and she proceeded to let go but then fell rate after. Patient denies hitting her head, LOC. Patient states most her pain is in her right shoulder. Patient is able to move right hip and states that feels more like a bruise. Patient has no other complaints at this time. - Related Data Home Medications Medication Instructions Recorded Confirmed traZODone HCL [Desyrel] 100 mg PO HS 11/21/14 10/20/18 Montelukast [Singulair] 10 mg PO HS 12/27/15 10/20/18 Atorvastatin [Lipitor] 10 mg PO HS 11/24/17 10/20/18 Levothyroxine Sodium [Synthroid] 200 mcg PO DAILY 11/24/17 10/16/18 Metoprolol Tartrate [Lopressor] 25 mg PO BID 11/24/17 10/16/18 Baclofen [Lioresal] 10 mg PO TID 05/25/18 10/20/18 Clindamycin Topical Soln 1 applic TOPICAL BID 06/22/18 10/20/18 [Cleocin-T Topical Soln] Collagen Protein 20.1 gm PO DAILY 06/22/18 10/20/18 Ergocalciferol (Vitamin D2) 50,000 unit PO BUCKLEY 06/22/18 10/20/18 [Vitamin D2] Omeprazole [PriLOSEC] 20 mg PO AC-BID 06/22/18 10/20/18 SUMAtriptan SUCCINATE [Imitrex] 100 mg PO BID PRN 06/22/18 10/20/18 Terazosin [Hytrin] 2 mg PO HS 06/22/18 10/20/18 Varenicline [Chantix Continuing 1 mg PO DAILY 06/22/18 10/20/18 Pack] Previous Rx's Medication Instructions Recorded Ipratropium/Albuterol Sulfate 1 puff INHALATION RT-QID #0 11/26/17 [Combivent Respimat Inhaler] Meclizine [Antivert] 25 mg PO DAILY #20 tab 01/01/19 Allergies Allergy/AdvReac Type Severity Reaction Status Date / Time No Known Allergies Allergy Verified 01/01/19 15:57 Review of Systems ROS Statement: Those systems with pertinent positive or pertinent negative responses have been documented in the HPI. ROS Other: All systems not noted in ROS Statement are negative. Past Medical History Past Medical History: COPD, GERD/Reflux, Hyperlipidemia, Hypertension, Sleep Apnea/CPAP/BIPAP, Thyroid Disorder Additional Past Medical History / Comment(s): migraines, insomnia, obstructive sleep apnea on CPAP, vertigo History of Any Multi-Drug Resistant Organisms: None Reported Past Surgical History: Bariatric Surgery, Bladder Surgery, Orthopedic Surgery Additional Past Surgical History / Comment(s): eye surgery, left thumb surgery, EGD,. sleeve gastrectomy (04-20-18) Past Anesthesia/Blood Transfusion Reactions: No Reported Reaction Past Psychological History: No Psychological Hx Reported Smoking Status: Former smoker Past Alcohol Use History: Occasional Past Drug Use History: Marijuana - Past Family History Mother Family Medical History: Cancer Additional Family Medical History / Comment(s): mother due to lung cancer Father Family Medical History: Coronary Artery Disease (CAD), Diabetes Mellitus Additional Family Medical History / Comment(s): Father is alive with history of CAD, DM and is on home O2. She does not know any further details. Sister(s) Additional Family Medical History / Comment(s): ETOH Brother(s) Family Medical History: Coronary Artery Disease (CAD) General Exam - General Exam Comments Initial Comments: GENERAL: Well-appearing, well-nourished and in no acute distress. HEAD: Atraumatic, normocephalic. EYES: Pupils equal round and reactive to light, extraocular movements intact, sclera anicteric, conjunctiva are normal. ENT: TMs normal, nares patent, oropharynx clear without exudates. Moist mucous membranes. NECK: Normal range of motion, supple without lymphadenopathy or JVD. LUNGS: Breath sounds clear to auscultation bilaterally and equal. No wheezes rales or rhonchi. HEART: Regular rate and rhythm without murmurs, rubs or gallops. ABDOMEN: Soft, nontender, normoactive bowel sounds. No guarding, no rebound. No masses appreciated. : Deferred EXTREMITIES: Patient has pain to palpation of the right upper trap and scapular area. Patient has decreased range of motion in all directions. Strength was not tested secondary to pain. Neurovascular intact. Patient has full range of motion of the right hip and no pain to palpation. NEUROLOGICAL: Cranial nerves II through XII grossly intact. Normal speech, normal gait. PSYCH: Normal mood, normal affect. SKIN: Warm, Dry, normal turgor, no rashes or lesions noted. Limitations: no limitations Course Vital Signs 01/01/19 15:51 Temperature 97.9 F Pulse Rate 64 Respiratory 18 Rate Blood Pressure 138/83 O2 Sat by Pulse 95 Oximetry Medical Decision Making - Medical Decision Making Patient is a 58-year-old female with complaints of right shoulder pain after falling today. Patient has history of vertical and has not taken her medication for approximately one month. Patient was standing at the bathroom sink when episode occurred and she fell onto her right shoulder and right hip. On exam patient has decreased range of motion of the right shoulder. Patient's right hip has no pain to palpation and full range of motion. X-rays of the right shoulder showed no acute fractures or dislocations. Patient will be discharged home with prescription for meclizine and will follow up with her neurologist in a week and a half as she already has an appointment. Patient also admits to having baclofen at home and will continue to take that as needed for muscle soreness. Patient will be discharged home. Patient is okay with this plan. Return parameters were discussed with the patient she verbalized understanding. Case discussed with Dr. Kholer. Disposition Clinical Impression: Fall, Right shoulder pain Disposition: HOME SELF-CARE Condition: Stable Instructions (If sedation given, give patient instructions): Shoulder Pain (ED) Additional Instructions: Please return to the Emergency Department if symptoms worsen or any other concerns. Follow-up with neurologist as discussed. Prescriptions: Meclizine [Antivert] 25 mg PO DAILY #20 tab Is patient prescribed a controlled substance at d/c from ED?: No Referrals: Hugo Preston MD [Primary Care Provider] - 1-2 days
== END 2019-01-01 18:46 | disposition home or self-care (01) ==
LOC: EC 15:37
DX: M25.511 Pain in right shoulder (principal); R42 Dizziness and giddiness; J44.9 Chronic obstructive pulmonary disease, unspecified; K21.9 Gastro-esophageal reflux disease without esophagitis; E78.5 Hyperlipidemia, unspecified; I10 Essential (primary) hypertension; E07.9 Disorder of thyroid, unspecified; G47.33 Obstructive sleep apnea (adult) (pediatric); Z79.890 Hormone replacement therapy; Z79.899 Other long term (current) drug therapy; Z98.84 Bariatric surgery status; Z87.891 Personal history of nicotine dependence; Z91.14 Patient's other noncompliance with medication regimen; W19.XXXA Unspecified fall, initial encounter; Y92.002 Bathroom of unspecified non-institutional (private) residence as the place of occurrence of the external cause
CPT/HCPCS: 73030; 99283; 96372; J1885

== ENCOUNTER → 2019-01-01 | Outpatient (CLI) | payer MEDICARE, OTHER ==
--- NOTE | 2019-01-04 09:30 | MM ---
Reason for exam: screening (asymptomatic). Last mammogram was performed 1 year and 2 months ago. History: Patient is postmenopausal. Family history of breast cancer in maternal aunt at age 48 and breast cancer in paternal aunt. Took estrogen for 6 months. Physical Findings: A clinical breast exam by your physician is recommended on an annual basis and results should be correlated with mammographic findings. MG Screening Mammo w CAD Bilateral CC and MLO view(s) were taken. Prior study comparison: October 23, 2017, bilateral MG screening mammo w CAD. November 16, 2015, left breast MG work up mamm w CAD LT. The breast tissue is heterogeneously dense. This may lower the sensitivity of mammography. Focal asymmetry upper outer left breast posterior third position. This finding is changed when compared with previous exams. ASSESSMENT: Incomplete: need additional imaging evaluation, BI-RAD 0 RECOMMENDATION: Special view mammogram of the left breast. If lesion persists on supplemental views, image directed ultrasound is recommended. [facility] will attempt to contact patient to return for supplemental views and ultrasound if indicated.
== END | disposition home or self-care (01) ==
LOC: RADMAMWWP 09:46
PROVIDERS: ATTEND Family Medicine
DX: Z12.31 Encounter for screening mammogram for malignant neoplasm of breast (principal)
CPT/HCPCS: 77067

== ENCOUNTER → 2019-01-11 | Outpatient (CLI) | payer MEDICARE, OTHER ==
--- NOTE | 2019-01-12 07:45 | MM ---
Reason for exam: additional evaluation requested from abnormal screening. Last mammogram was performed less than 1 month ago. History: Patient is postmenopausal. Family history of breast cancer in maternal aunt at age 48 and breast cancer in paternal aunt. Took estrogen for 6 months. Physical Findings: Nurse did not find any significant physical abnormalities on exam. MG Work Up Mamm w CAD LT Spot compression CC, spot compression MLO, and LM view(s) were taken of the left breast. Prior study comparison: January 01, 2019, bilateral MG screening mammo w CAD. October 23, 2017, bilateral MG screening mammo w CAD. There are scattered fibroglandular densities. Asymmetric breast tissue in the left upper outer breast persists. ASSESSMENT: Incomplete: need additional imaging evaluation, BI-RAD 0 RECOMMENDATION: Ultrasound of the left breast.
--- NOTE | 2019-01-12 07:57 | USB ---
Reason for exam: additional evaluation requested from prior study. History: Patient is postmenopausal. Family history of breast cancer in maternal aunt at age 48 and breast cancer in paternal aunt. Took estrogen for 6 months. Physical Findings: Nurse did not find any significant physical abnormalities on exam. US Breast Workup Limited LT Left limited breast ultrasound including focal area of concern, retroareolar and axilla demonstrates a 10 x 2 x 4 mm oval cystic lesion at 2 o'clock, a 6 x 4 x 7 mm irregular taller than wide hypoechoic lesion at 3o'clock, and an axillary tail 5 mm lymph node. ASSESSMENT: Suspicious, BI-RAD 4 The 3 o'clock lesion is suspicious RECOMMENDATION: Ultrasound core biopsy of the left breast. Called Dr. Franks with mammographic findings office is closed until 8 scheduled an appointment for the patient for 819 at 1:[address] Coley for consultation only. PRELIMINARY REPORT CALLED AND FAXED TO DR. COLEY ON 719.
== END | disposition home or self-care (01) ==
LOC: RADMAMWWP 08:52
PROVIDERS: ATTEND Family Medicine
DX: R92.8 Other abnormal and inconclusive findings on diagnostic imaging of breast (principal)
CPT/HCPCS: 77065

== ENCOUNTER → 2019-01-25 | Outpatient (CLI) | payer MEDICARE, OTHER ==
--- NOTE | 2019-01-26 02:05 | MR ---
EXAMINATION TYPE: MR shoulder RT wo con DATE OF EXAM: 01/25/2019 COMPARISON: None HISTORY: Rt shoulder pain TECHNIQUE: Multiplanar, multisequence imaging of the right shoulder is performed without contrast. FINDINGS: There is hypertrophic spurring at the AC joint and mild subacromial impingement. The biceps tendon is intact. Subscapularis tendon appears intact. There is some thickening and increased signal in the watts praspinatus tendon at the insertion on the greater tuberosity of the humerus. There is full-thickness defect on the coronal image 14. There is small 5 mm degenerative cyst in the greater tuberosity. Glenoid jose appear intact. There is no evidence of a fracture. 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 Evidence of intrasubstance tear and edema and thickening in the supraspinatus tendon with full-thickn ess rotator cuff tear. No retraction.
== END | disposition home or self-care (01) ==
LOC: RADMRIMAIN 13:07
PROVIDERS: ATTEND Psychiatry & Neurology Pain Medicine
DX: M19.011 Primary osteoarthritis, right shoulder (principal); M75.121 Complete rotator cuff tear or rupture of right shoulder, not specified as traumatic
CPT/HCPCS: 93880

== ENCOUNTER → 2019-01-25 | Outpatient (CLI) | payer MEDICARE, OTHER ==
--- NOTE | 2019-01-25 15:11 | US ---
EXAMINATION TYPE: US carotid duplex BILAT DATE OF EXAM: 01/25/2019 COMPARISON: NONE CLINICAL HISTORY: R42 dizziness. EXAM MEASUREMENTS: RIGHT: Peak Systolic Velocity (PSV) cm/sec ----- Right CCA: 76.4 ----- Right ICA: 118.6 ----- Right ECA: 96.8 ICA/CCA ratio: 1.6 RIGHT: End Diastole cm/sec ----- Right CCA: 24.1 ----- Right ICA: 44.5 ----- Right ECA: 18.3 LEFT: Peak Systolic Velocity (PSV) cm/sec ----- Left CCA: 89.5 ----- Left ICA: 127.3 ----- Left ECA: 69.2 ICA/CCA ratio: 1.4 LEFT: End Diastole cm/sec ----- Left CCA: 29.9 ----- Left ICA: 47.4 ----- Left ECA: 12.5 VERTEBRALS (direction of flow): Right Vertebral: Antegrade Left Vertebral: Antegrade Rhythm: Normal Very tortuous left ICA. Minimal plaque visualized. Slightly elevated left distal ICA likely due to to rtuous vessel. IMPRESSION: Tortuosity of the left internal carotid artery with slightly elevated velocity raises th e possibility of 50-69% stenosis. Elevated velocity may also be due to artifact from tortuosity. No e vidence of significant flow restrictive disease on the right. Criteria for Assigning % of Stenosis / Diameter reduction (Estimation based on the indirect measurements of the internal carotid artery velocities (ICA PSV). 1. Normal (no stenosis)=ICA PSV < 125 cm/s: ratio < 2.0: ICA EDV<40 cm/s. 2. Less than 50% stenosis=ICA PSV < 125 cm/s: ratio < 2.0: ICA EDV<40 cm/s. 3. 50 to 69% stenosis=ICA PSV of 125 to 230 cm/s: ration 2.0 ? 4.0: ICA EDV 40-100 cm/s. 4. Greater than 70% stenosis to near occlusion= ICA PSV > 230 cm/s: ratio > 4.0: ICA EDV > 100 cm/s. 5. Near occlusion= ICA PSV velocities may be low or undetectable: variable ratio and ICA EDV. 6. Total occlusion=unable to detect flow.
== END | disposition home or self-care (01) ==
LOC: RADUSWWP 14:11
PROVIDERS: ATTEND Psychiatry & Neurology Neurology
DX: I77.1 Stricture of artery (principal)
CPT/HCPCS: 93880

== ENCOUNTER → 2019-02-17 | Day surgery (SDC) | payer MEDICARE, OTHER ==
[2019-02-17 11:47] VITALS: RESP 16; BMI 26.6
--- NOTE | 2019-02-17 13:02 | USB ---
EXAMINATION TYPE: US biopsy breast VAD LT, MG diagnostic mammo LT wo CAD DATE OF EXAM: 02/17/2019 CLINICAL HISTORY: R92.8 Abnormal Mammo. TECHNIQUE: Ultrasound guided core biopsy of left breast. COMPARISON: Left breast ultrasound dated 01/11/2019 FINDINGS: The procedure of ultrasound guided core biopsy was explained to the patient. Benefits, alternatives, and risks were discussed. An informed consent was then obtained. Preprocedural timeout was performed. The patient was placed in supine positioning for imaging and for the procedure. The overlying skin was prepped and draped in usual sterile fashion. 10 cc of 1% lidocaine was used as anesthetic into the skin and subcutaneous tissue up to the 6 x 4 x 7 mm suspicious mass at the 3:00 position in the left breast. Under ultrasound guidance, a 12-gauge vacuum assisted biopsy gun device was used to obtain 5 core samples. Following this, a ribbon-shaped biopsy marker was left in mass. Postprocedural mammogram demonstrates appropriate biopsy marker placement. The patient tolerated the procedure well without any immediate complication. The patient was kept in the radiology department for short stay after the procedure and then discharged home in stable condition. IMPRESSION: Successful, uncomplicated ultrasound guided core biopsy of the highly suspicious 6 x 4 x 7 mm mass at the 3:00 position in the left breast, full pathology results to follow. Pathology Results: Malignant LEFT BREAST, THREE O'CLOCK, NEEDLE CORE BIOPSY: Invasive ductal carcinoma, preliminary grade 2. See note. Recommendation Surgical consult of the left breast. MARIN
[2019-02-17 13:32] VITALS: BP 124/87; PULSE 55; TEMP 97.9
== END ==
LOC: RADUSWWP 11:06
PROVIDERS: ATTEND Surgery
DX: C50.812 Malignant neoplasm of overlapping sites of left female breast (principal); Z91.048 Other nonmedicinal substance allergy status
CPT/HCPCS: 88305; 77065; 19083; A4648; J2001; 88341; 88342

== ENCOUNTER 2019-03-04 11:30 | Emergency (ER) | payer MEDICARE, OTHER ==
[2019-03-04 12:00] VITALS: BP 132/88; PULSE 54; RESP 18; TEMP 97.9
--- NOTE | 2019-03-04 12:42 | XR ---
Right wrist and right hand HISTORY: Trauma and pain 3 views of the right hand and 4 views of the right wrist Small ossific densities present distal to the ulnar styloid, small ossific density which appears well -corticated which appears well-corticated and may not be, there are small focal areas of increased de nsity at the level of the region just proximal to the lunate and triquetrum volar aspect which are in determinate. I question some widening of the scapholunate distance. Arthropathy present at the carpom etacarpal joint of the first digit. Some remodeling at the radiocarpal joint. IMPRESSION: No definite acute fracture or dislocation. There is arthropathy change. There is borderli ne scapholunate distance widening, wrist MRI may be of benefit
--- NOTE | 2019-03-04 13:53 | ED ---
General Adult HPI - General Chief complaint: Extremity Injury, Upper Stated complaint: rt wrist pain Time Seen by Provider: 03/04/19 13:12 Source: patient, RN notes reviewed Mode of arrival: ambulatory Limitations: no limitations - History of Present Illness Initial comments: 58-year-old female presents to the emergency department for a chief complaint of right wrist pain. Patient states that she fell yesterday while getting off the toilet onto her right wrist. States it has been painful since that time. Denies hitting her head. Denies any other injuries. Denies any loss of consciousness. States she feels her normal self at this time besides her wrist pain. States it hurts to move.Patient has no other complaints at this time including shortness of breath, chest pain, abdominal pain, nausea or vomiting, headache, or visual changes. - Related Data Home Medications Medication Instructions Recorded Confirmed traZODone HCL [Desyrel] 100 mg PO HS 11/21/14 03/04/19 Montelukast [Singulair] 10 mg PO HS 12/27/15 03/04/19 Atorvastatin [Lipitor] 10 mg PO HS 11/24/17 03/04/19 Levothyroxine Sodium [Synthroid] 200 mcg PO DAILY 11/24/17 03/04/19 Metoprolol Tartrate [Lopressor] 25 mg PO BID 11/24/17 03/04/19 Baclofen [Lioresal] 10 mg PO TID 05/25/18 03/04/19 Clindamycin Topical Soln 1 applic TOPICAL BID 06/22/18 03/04/19 [Cleocin-T Topical Soln] Collagen Protein 20.1 gm PO DAILY 06/22/18 03/04/19 Ergocalciferol (Vitamin D2) 50,000 unit PO BUCKLEY 06/22/18 03/04/19 [Vitamin D2] Omeprazole [PriLOSEC] 20 mg PO AC-BID 06/22/18 03/04/19 SUMAtriptan SUCCINATE [Imitrex] 100 mg PO BID PRN 06/22/18 03/04/19 Terazosin [Hytrin] 2 mg PO HS 06/22/18 03/04/19 Varenicline [Chantix Continuing 1 mg PO BID 06/22/18 03/04/19 Pack] Meclizine [Antivert] 25 mg PO BID 02/05/19 03/04/19 Ipratropium/Albuterol Sulfate 1 puff INHALATION QID PRN 03/04/19 03/04/19 [Combivent Respimat Inhaler] Lopressor 1 tab PO BID 03/04/19 Multivitamins, Thera [Multivitamin 1 tab PO DAILY 03/04/19 03/04/19 (formulary)] Vitamin C/Biotin [Hair, Skin and 1 each PO DAILY 03/04/19 03/04/19 Nails] Allergies Allergy/AdvReac Type Severity Reaction Status Date / Time latex Allergy Rash/Hives Verified 03/04/19 13:33 nickel Allergy Rash/Hives Verified 03/04/19 13:33 paper tape Allergy Rash/Hives Uncoded 03/04/19 13:33 Review of Systems ROS Statement: Those systems with pertinent positive or pertinent negative responses have been documented in the HPI. ROS Other: All systems not noted in ROS Statement are negative. Past Medical History Past Medical History: COPD, GERD/Reflux, Hyperlipidemia, Hypertension, Sleep Apnea/CPAP/BIPAP, Thyroid Disorder Additional Past Medical History / Comment(s): migraines, insomnia, obstructive sleep apnea on CPAP, vertigo, chronic back pain, aortic aneurysm 4.5cm History of Any Multi-Drug Resistant Organisms: None Reported Past Surgical History: Bariatric Surgery, Bladder Surgery, Orthopedic Surgery Additional Past Surgical History / Comment(s): eye surgery, left thumb surgery, EGD,. sleeve gastrectomy (04-20-18) Past Anesthesia/Blood Transfusion Reactions: No Reported Reaction Past Psychological History: Depression, PTSD Smoking Status: Former smoker Past Alcohol Use History: Occasional Past Drug Use History: Marijuana - Past Family History Mother Family Medical History: Cancer Additional Family Medical History / Comment(s): mother due to lung cancer Father Family Medical History: Coronary Artery Disease (CAD), Diabetes Mellitus Additional Family Medical History / Comment(s): Father is alive with history of CAD, DM and is on home O2. She does not know any further details. Sister(s) Additional Family Medical History / Comment(s): ETOH Brother(s) Family Medical History: Coronary Artery Disease (CAD) General Exam Limitations: no limitations General appearance: alert, in no apparent distress Head exam: Present: atraumatic, normocephalic, normal inspection Eye exam: Present: normal appearance, PERRL, EOMI. Absent: scleral icterus, c onjunctival injection, periorbital swelling ENT exam: Present: normal exam, mucous membranes moist Neck exam: Present: normal inspection, full ROM. Absent: tenderness, meningismus, lymphadenopathy Respiratory exam: Present: normal lung sounds bilaterally. Absent: respiratory distress, wheezes, rales, rhonchi, stridor Cardiovascular Exam: Present: regular rate, normal rhythm, normal heart sounds. Absent: systolic murmur, diastolic murmur, rubs, gallop, clicks Extremities exam: Present: tenderness (Tenderness noted to the mid volar right wrist. No scaphoid tenderness.), normal capillary refill (Capillary refill less than 2 seconds, radial pulse 2+ in the right upper extremity.), other (No edema or erythema in the right upper extremity.). Absent: full ROM (Patient has limited flexion of the right wrist secondary to pain with limited extension. However mechanisms for flexion and extension are intact.) Course Vital Signs 03/04/19 11:57 Temperature 97.9 F Pulse Rate 54 L Respiratory 18 Rate Blood Pressure 132/88 O2 Sat by Pulse 98 Oximetry Procedures - Orthopedic Splinting/Casting Injury #1 Side: right Upper Extremity Injury Location: wrist Upper Extremity Immobilizer: thumb spica Additional Comments: Neurovascular status intact after splint applied. Medical Decision Making - Medical Decision Making 58-year-old female with fall on the right wrist yesterday presents for right wrist pain. Pain is in the mid volar right wrist. Mild tenderness noted. No edema or erythema. X-ray shows some borderline scapholunate distance widening. There is no scaphoid tenderness on exam however there is mid volar right wrist tenderness. Therefore patient was splinted in a thumb spica and given orthopedic follow-up. She'll return if she has any worsening symptoms. Disposition Clinical Impression: Wrist pain, right Disposition: HOME SELF-CARE Condition: Good Instructions (If sedation given, give patient instructions): Wrist Injury (ED) Additional Instructions: Please take Tylenol for pain. Please rest ice and elevate the right wrist. Keep splint dry. Follow-up with orthopedics in one to 2 days. Return to the emergency department if you have any worsening symptoms. Is patient prescribed a controlled substance at d/c from ED?: No Referrals: Hugo Preston MD [Primary Care Provider] - 1-2 days Dima Lauren DO [Medical Doctor] - 1-2 days Time of Disposition: 13:52
== END 2019-03-04 14:00 | disposition home or self-care (01) ==
LOC: EC 11:30
DX: M25.531 Pain in right wrist (principal); J44.9 Chronic obstructive pulmonary disease, unspecified; K21.9 Gastro-esophageal reflux disease without esophagitis; E78.5 Hyperlipidemia, unspecified; I10 Essential (primary) hypertension; G47.33 Obstructive sleep apnea (adult) (pediatric); E07.9 Disorder of thyroid, unspecified; G89.29 Other chronic pain; F32.9 Major depressive disorder, single episode, unspecified; Z87.891 Personal history of nicotine dependence; Z91.040 Latex allergy status; Z91.048 Other nonmedicinal substance allergy status; Z79.890 Hormone replacement therapy; Z79.899 Other long term (current) drug therapy; Z99.89 Dependence on other enabling machines and devices; W19.XXXA Unspecified fall, initial encounter; Y93.89 Activity, other specified
CPT/HCPCS: 29125; 99283

== ENCOUNTER 2019-03-08 08:03 | Observation (INO) | payer MEDICARE, OTHER ==
[2019-03-04 13:51] VITALS: BMI 26.1
[~2019-03-08 08:03] MED LIST changes: -HYDROmorphone 0.5 MG/0.5 ML SYRINGE IVP PRN; -LACTATED RINGERS 1,000 ML IV SCH; +LIDOCAINE 1% 20 ML VIAL (10MG/ML) FOR IV START INTRADERMA PRN; -MIDAZOLAM (PF) 2 MG/2 ML VIAL IV PRN; +MIDAZOLAM 2 MG/2 ML VIAL IV PRN; -ONDANSETRON 4 MG/2 ML VIAL IVP ONE; -SCOPOLAMINE 1.5MG/72HR PATCH TRANSDERM ONE
[2019-03-08] MEDS: LACTATED RINGERS 1,000 ML IV SCH (09:29)
--- NOTE | 2019-03-08 09:41 | P.GSHP ---
History of Present Illness H&P Date: 03/08/19 Chief Complaint: Left breast cancer This a 58-year-old female who's recent diagnosis (cancer. Patient presents today for bilateral simple mastectomy with left sentinel node biopsy Past Medical History Past Medical History: COPD, GERD/Reflux, Hyperlipidemia, Hypertension, Sleep Apnea/CPAP/BIPAP, Thyroid Disorder Additional Past Medical History / Comment(s): migraines, insomnia, obstructive sleep apnea on CPAP, vertigo, chronic back pain, aortic aneurysm 4.5cm History of Any Multi-Drug Resistant Organisms: None Reported Past Surgical History: Bariatric Surgery, Bladder Surgery, Orthopedic Surgery Additional Past Surgical History / Comment(s): eye surgery, left thumb surgery, EGD,. sleeve gastrectomy (04-20-18) Past Anesthesia/Blood Transfusion Reactions: No Reported Reaction Past Psychological History: Depression, PTSD Smoking Status: Former smoker Past Alcohol Use History: Occasional Past Drug Use History: Marijuana - Past Family History Mother Family Medical History: Cancer Additional Family Medical History / Comment(s): mother due to lung cancer Father Family Medical History: Coronary Artery Disease (CAD), Diabetes Mellitus Additional Family Medical History / Comment(s): Father is alive with history of CAD, DM and is on home O2. She does not know any further details. Sister(s) Additional Family Medical History / Comment(s): ETOH Brother(s) Family Medical History: Coronary Artery Disease (CAD) Medications and Allergies Home Medications Medication Instructions Recorded Confirmed Type traZODone HCL [Desyrel] 100 mg PO HS 11/21/14 03/08/19 History Montelukast [Singulair] 10 mg PO HS 12/27/15 03/08/19 History Atorvastatin [Lipitor] 10 mg PO HS 11/24/17 03/08/19 History Levothyroxine Sodium [Synthroid] 200 mcg PO DAILY 11/24/17 03/08/19 History Metoprolol Tartrate [Lopressor] 25 mg PO BID 11/24/17 03/08/19 History Baclofen [Lioresal] 10 mg PO TID 05/25/18 03/08/19 History Clindamycin Topical Soln 1 applic TOPICAL BID 06/22/18 03/08/19 History [Cleocin-T Topical Soln] Collagen Protein 20.1 gm PO DAILY 06/22/18 03/08/19 History Ergocalciferol (Vitamin D2) 50,000 unit PO BUCKLEY 06/22/18 03/08/19 History [Vitamin D2] Omeprazole [PriLOSEC] 20 mg PO AC-BID 06/22/18 03/08/19 History SUMAtriptan SUCCINATE [Imitrex] 100 mg PO BID PRN 06/22/18 03/08/19 History Terazosin [Hytrin] 2 mg PO HS 06/22/18 03/08/19 History Varenicline [Chantix Continuing 1 mg PO BID 06/22/18 03/08/19 History Pack] Meclizine [Antivert] 25 mg PO BID 02/05/19 03/08/19 History Ipratropium/Albuterol Sulfate 1 puff INHALATION QID PRN 03/04/19 03/04/19 History [Combivent Respimat Inhaler] Multivitamins, Thera [Multivitamin 1 tab PO DAILY 03/04/19 03/04/19 History (formulary)] Vitamin C/Biotin [Hair, Skin and 1 each PO DAILY 03/04/19 03/04/19 History Nails] Allergies Allergy/AdvReac Type Severity Reaction Status Date / Time latex Allergy Rash/Hives Verified 03/04/19 13:33 nickel Allergy Rash/Hives Verified 03/04/19 13:33 paper tape Allergy Rash/Hives Uncoded 03/04/19 13:33 Surgical - Exam Vital Signs Temp Pulse Resp BP Pulse Ox 97 F L 57 L 18 160/78 97 03/08/19 09:21 03/08/19 09:21 03/08/19 09:21 03/08/19 09:21 03/08/19 09:21 - General well developed, well nourished, no distress - Eyes PERRL - ENT normal pinna - Neck no masses - Respiratory normal expansion - Cardiovascular Rhythm: regular - Abdomen Abdomen: soft, non tender - Integumentary Recent left breast core biopsy site incision well-healed. No masses palpable right or left breast. Axilla is within normal limits. Assessment and Plan Plan: Left breast cancer. We'll perform bilateral simple mastectomy. With sentinel node biopsy of left axillary lymph node
[2019-03-08] MEDS ORDERED: ALPRAZolam 0.5 MG TAB PO ONE (09:43)
[2019-03-08] MEDS ORDERED: ONDANSETRON 4 MG/2 ML VIAL IVP ONE (09:47)
[2019-03-08] MEDS ORDERED: DEXAMETHASONE SOD PHOSPHATE 10 MG/ML 1 ML VIAL IV ONE (09:47)
[2019-03-08] MEDS ORDERED: SUCCINYLCHOLINE CHLORIDE 100 MG/5 ML SYR IV ONE (11:28)
[2019-03-08] MEDS ORDERED: MIDAZOLAM 2 MG/2 ML VIAL ONE (11:28)
[2019-03-08] MEDS ORDERED: ePHEDrine SULFATE/0.9% NACL/PF 50 MG/5 ML SYRINGE IV ONE (11:28)
[2019-03-08] MEDS ORDERED: LIDOCAINE 1% INJ 10MG/ML (20 ML MDV) ONE (11:28)
[2019-03-08] MEDS ORDERED: fentaNYL (PF) 50 MCG/ML 2 ML AMP ONE (11:28)
[2019-03-08] MEDS ORDERED: PHENYLEPHRINE-0.9% NACL SYG 1 MG/10 ML SYRINGE ONE (11:28)
[2019-03-08] MEDS ORDERED: PROPOFOL 10 MG/ML 20 ML VIAL IV ONE (11:28)
[2019-03-08] MEDS ORDERED: METHYLENE BLUE 10 MG/ML (10 ML VIAL) INJ ONE (11:45)
[2019-03-08] MEDS ORDERED: SODIUM CHLORIDE 0.9% 100 ML with ceFAZolin 2,000 MG IV ONE ×2 (11:46)
--- NOTE | 2019-03-08 12:06 | NM ---
EXAMINATION TYPE: NM sentinel node injection DATE OF EXAM: 03/08/2019 COMPARISON: Ultrasound biopsy mammogram breast 02/17/2019 and 01/11/2019 HISTORY: 58-year-old female with biopsy-proven left breast cancer, electing for bilateral mastectomie s. TECHNIQUE AND FINDINGS: The procedure of sentinel lymph node injection was explained to the patient. The benefits, alternatives, and risks were discussed. An informed consent was then obtained. Overlying skin is cleaned with sterile alcohol. 534 uCi Tc 99m Tilmanocept was injected surrounding the upper outer aspect of the left nipple intrade rmally. The patient tolerated the procedure well without any immediate complication. The procedure was perfo rmed in the preoperative suite and the patient will be taken to surgery for surgical procedure where presumed intraoperative gamma probe will be used for sentinel lymph node detection. IMPRESSION: Successful left breast radiotracer injection for sentinel node localization as above.
[2019-03-08] MEDS ORDERED: NALOXONE 0.4 MG/ML 1 ML VIAL IV PRN (13:27)
[2019-03-08] MEDS ORDERED: ONDANSETRON 4 MG/2 ML VIAL IVP PRN (13:27)
[2019-03-08] MEDS ORDERED: LACTATED RINGERS 1,000 ML IV ONE ×2 (13:27→13:34)
[2019-03-08] MEDS: fentaNYL (PF) 50 MCG/ML 2 ML AMP IV PRN ×2 (13:55→14:11)
[2019-03-08] MEDS: KETOROLAC 30 MG/ML 1 ML VIAL IVP SCH ×2 (14:14→19:19)
[2019-03-08] MEDS: HYDROmorphone 1 MG/ML 1 ML SYRINGE IVP ONE ×2 (14:21→14:27)
[2019-03-08] MEDS ORDERED: SUMAtriptan SUCCINATE 50 MG TAB PO PRN (16:54)
[2019-03-08] MEDS ORDERED: IPRATROPIUM-ALBUTEROL 3 ML NEB INHALATION PRN (16:54)
[2019-03-08] MEDS: HYDROmorphone 0.5 MG/0.5 ML SYRINGE IVP PRN (17:59)
[2019-03-08] MEDS: PANTOPRAZOLE 40 MG TABLET PO SCH (19:22)
[2019-03-08] MEDS: VARENICLINE 1 MG TAB PO SCH (21:03)
[2019-03-08] MEDS: HYDROcodone/APAP 5-325MG 1 EACH TAB PO PRN (21:04)
[2019-03-08] MEDS: METOPROLOL TARTRATE 25 MG TAB PO SCH (21:05)
[2019-03-08] MEDS: BACLOFEN 10 MG TAB PO SCH (21:05)
[2019-03-08] MEDS: ATORVASTATIN 10 MG TAB PO SCH (21:05)
[2019-03-08] MEDS: MONTELUKAST 10 MG TAB PO SCH (21:05)
[2019-03-08] MEDS: traZODone HCL 100 MG TAB PO SCH (21:05)
[2019-03-08] MEDS: MECLIZINE 25 MG TAB PO SCH (21:06)
[2019-03-08] MEDS ORDERED: SODIUM CHLORIDE 0.9% 1,000 ML IV ONE (23:41)
[2019-03-09] MEDS: KETOROLAC 30 MG/ML 1 ML VIAL IVP SCH ×4 (00:36→19:03)
[2019-03-09] MEDS: HYDROcodone/APAP 5-325MG 1 EACH TAB PO PRN ×3 (04:19→19:07)
[2019-03-09] MEDS: PANTOPRAZOLE 40 MG TABLET PO SCH (06:03)
[2019-03-09] MEDS: LEVOTHYROXINE 100 MCG TAB PO SCH (06:03)
[2019-03-09 07:14] LABS: Basophils % (A) 1 %; Eosinophils # (A) 0.2 k/uL (0-0.7); Eosinophils % (A) 3 %; HCT 32.9 % (34.0-46.0); HGB 10.8 gm/dL (11.4-16.0); Lymphocytes # (A) 1.3 k/uL (1.0-4.8); Lymphocytes % (A) 20 %; MCH 30.9 pg (25.0-35.0); MCV 93.7 fL (80.0-100.0); Mean Platelet Volume 8.4; Monocytes # (A) 0.4 k/uL (0-1.0); Monocytes % (A) 6 %; Neutrophils # (A) 4.6 k/uL (1.3-7.7); Neutrophils % (A) 69 %; Platelet Count 141 k/uL (150-450); RDW 14.5 % (11.5-15.5); WBC 6.6 k/uL (3.8-10.6)
[2019-03-09] MEDS: HYDROmorphone 0.5 MG/0.5 ML SYRINGE IVP PRN ×4 (08:41→21:24)
[2019-03-09] MEDS: MECLIZINE 25 MG TAB PO SCH ×2 (08:42→21:17)
[2019-03-09] MEDS: MULTIVITAMINS, THERA 1 EACH TAB PO SCH (08:42)
[2019-03-09] MEDS: VARENICLINE 1 MG TAB PO SCH ×2 (08:42→21:18)
[2019-03-09] MEDS: ENOXAPARIN 40 MG/0.4 ML SYRINGE SQ SCH (08:42)
[2019-03-09] MEDS: BACLOFEN 10 MG TAB PO SCH ×3 (08:42→21:18)
--- NOTE | 2019-03-09 13:14 | P.PN ---
Subjective Progress Note Date: 03/09/19 CHIEF COMPLAINT: Left breast cancer HISTORY OF PRESENT ILLNESS: 58-year-old female who underwent bilateral simple mastectomy with left sentinel node biopsy. Postop day #1. Pain controlled. Denies nausea or vomiting. Tolerating diet. Patient with increased AMELIE drainage overnight. Per nursing, 40cc drainage this AM thus far. PHYSICAL EXAM: VITAL SIGNS: Reviewed. GENERAL: Well-developed in no acute distress. HEENT: No sclera icterus. Extraocular movements grossly intact. Moist buccal mucosa. Head is atraumatic, normocephalic. ABDOMEN: Soft. Nondistended. Nontender. NEUROLOGIC: Alert and oriented. Cranial nerves II through XII grossly intact. BREAST: Dressing to chest chest dry intact. AMELIE with serosanguineous drainage. ASSESSMENT: 1. Left breast cancer, status post bilateral simple mastectomy with left sentinel node biopsy PLAN: 1. Pain control 2. Diet as tolerated 3. Incentive spirometry 4. Activity as tolerated 5. Monitor AMELIE drain output. Repeat hemoglobin in AM 6. Anticipate discharge home tomorrow Nurse practitioner note has been reviewed by physician. Signing provider agrees with the documented findings, assessment, and plan of care. Objective - Vital Signs Vital signs: Vital Signs Temp 98.3 F 03/09/19 08:04 Pulse 59 L 03/09/19 08:04 Resp 18 03/09/19 08:04 BP 127/79 03/09/19 10:28 Pulse Ox 97 03/09/19 08:04 Intake & Output 03/08/19 03/09/19 03/09/19 18:59 06:59 18:59 Intake Total 1500 Output Total 105 353 45 Balance 1395 -353 -45 Intake: IV 1500 Output: Drainage 30 353 45 left breast 20 315 40 right breast 10 38 5 Estimated Blood Loss 75 Other: # Voids 1 - Labs CBC & Chem 7: 03/09/19 06:46 Labs: Abnormal Lab Results - Last 24 Hours (Table) 03/09/19 Range/Units 06:46 RBC 3.50 L (3.80-5.40) m/uL Hgb 10.8 L (11.4-16.0) gm/dL Hct 32.9 L (34.0-46.0) % Plt Count 141 L (150-450) k/uL
--- NOTE | 2019-03-09 14:30 | P.CONS ---
History of Present Illness - Reason for Consult Consult date: 03/09/19 Medical management - History of Present Illness This is a 58-year-old female patient of Dr. Hugo Preston with past medical history of hypertension, hyperlipidemia, obstructive sleep apnea on CPAP, aortic aneurysm monitored by Dr. Vazquez and Simone Pham, history of morbid obesity status post gastric sleeve in 2017, PTSD, tobacco use and dependencequit October 2018. Patient has been brought in the hospital under the care of Dr. Coley status post bilateral simple mastectomy with left sentinel node biopsy. She had biopsy done February 17 which was positive for invasive carcinoma. This is postoperative day #1. Patient denies any nausea or vomiting. She is tolerating her diet. She states she has had increased AMELIE drainage overnight and plan was to keep her another day to monitor. Review of Systems Constitutional: Denies anorexia, Denies chills, Denies fatigue, Denies fever, Denies lethargy, Denies malaise, Denies poor appetite, Denies weight loss Eyes: denies blurred vision, denies pain Ears, nose, mouth and throat: Denies dysphagia, Denies headache, Denies nasal congestion, Denies nasal discharge, Denies sore throat, Denies vertigo Breasts: bilateral: pain (controlled) Cardiovascular: Denies chest pain, Denies decreased exercise tolerance, Denies dyspnea on exertion, Denies edema, Denies leg edema, Denies shortness of breath, Denies syncope Respiratory: Reports sleep apnea, Denies cough, Denies cough with sputum, Denies dyspnea, Denies excessive sputum, Denies hemoptysis, Denies home oxygen, Denies wheezing Gastrointestinal: Denies abdominal pain, Denies diarrhea, Denies loss of appetite, Denies nausea, Denies vomiting Genitourinary: Denies dysuria, Denies hematuria, Denies urgency, Denies urinary frequency Musculoskeletal: Denies frequent falls, Denies gait dysfunction, Denies muscle weakness, Denies myalgias Integumentary: Denies pruritus, Denies rash, Denies wounds Neurological: Denies change in mentation, Denies change in speech, Denies gait dysfunction, Denies numbness, Denies weakness Psychiatric: Denies anxiety, Denies depression Endocrine: Denies fatigue, Denies weight change Past Medical History Past Medical History: COPD, GERD/Reflux, Hyperlipidemia, Hypertension, Sleep Apnea/CPAP/BIPAP, Thyroid Disorder Additional Past Medical History / Comment(s): migraines, insomnia, obstructive sleep apnea on CPAP, vertigo, chronic back pain, aortic aneurysm 4.5cm History of Any Multi-Drug Resistant Organisms: None Reported Past Surgical History: Bariatric Surgery, Bladder Surgery, Orthopedic Surgery Additional Past Surgical History / Comment(s): eye surgery, left thumb surgery, EGD,. sleeve gastrectomy (04-20-18) Past Anesthesia/Blood Transfusion Reactions: No Reported Reaction Past Psychological History: Depression, PTSD Smoking Status: Former smoker Past Alcohol Use History: Occasional Additional Past Alcohol Use History / Comment(s): trying to quit, smoking on and off, one cigarette once and awhile, taking chantix, smoked from age 8, was up to 1 and 1/2ppd. Patient drinks alcohol rarely. She uses marijuana on a daily basis. Past Drug Use History: Marijuana Additional Drug Use History / Comment(s): Daily use, INSTRUCTED TO REFRAIN FROM USE FOR AT LEAST 24 HOURS PRIOR TO PROCEDURE - Past Family History Mother Family Medical History: Cancer Additional Family Medical History / Comment(s): mother due to lung cancer. Patient has 2 aunts had breast cancer. Patient does not have any children. Father Family Medical History: Coronary Artery Disease (CAD), Diabetes Mellitus Additional Family Medical History / Comment(s): Father is alive with history of CAD, DM and is on home O2. She does not know any further details. Sister(s) Additional Family Medical History / Comment(s): ETOH the patient has 2 sisters and one half-sister with no major medical problems. Brother(s) Family Medical History: Coronary Artery Disease (CAD) Additional Family Medical History / Comment(s): Patient has one brother with history of coronary artery disease status post CABG in heart failure. Medications and Allergies Home Medications Medication Instructions Recorded Confirmed Type traZODone HCL [Desyrel] 100 mg PO HS 11/21/14 03/08/19 History Montelukast [Singulair] 10 mg PO HS 12/27/15 03/08/19 History Atorvastatin [Lipitor] 10 mg PO HS 11/24/17 03/08/19 History Levothyroxine Sodium [Synthroid] 200 mcg PO DAILY 11/24/17 03/08/19 History Metoprolol Tartrate [Lopressor] 25 mg PO BID 11/24/17 03/08/19 History Baclofen [Lioresal] 10 mg PO TID 05/25/18 03/08/19 History Clindamycin Topical Soln 1 applic TOPICAL BID 06/22/18 03/08/19 History [Cleocin-T Topical Soln] Collagen Protein 20.1 gm PO DAILY 06/22/18 03/08/19 History Ergocalciferol (Vitamin D2) 50,000 unit PO BUCKLEY 06/22/18 03/08/19 History [Vitamin D2] Omeprazole [PriLOSEC] 20 mg PO AC-BID 06/22/18 03/08/19 History SUMAtriptan SUCCINATE [Imitrex] 100 mg PO BID PRN 06/22/18 03/08/19 History Terazosin [Hytrin] 2 mg PO HS 06/22/18 03/08/19 History Varenicline [Chantix Continuing 1 mg PO BID 06/22/18 03/08/19 History Pack] Meclizine [Antivert] 25 mg PO BID 02/05/19 03/08/19 History Ipratropium/Albuterol Sulfate 1 puff INHALATION RT-QID PRN 03/04/19 03/08/19 History [Combivent Respimat Inhaler] Multivitamins, Thera [Multivitamin 1 tab PO DAILY 03/04/19 03/08/19 History (formulary)] Vitamin C/Biotin [Hair, Skin and 1 tab PO DAILY 03/04/19 03/08/19 History Nails] Allergies Allergy/AdvReac Type Severity Reaction Status Date / Time latex Allergy Rash/Hives Verified 03/08/19 23:25 nickel Allergy Rash/Hives Verified 03/08/19 23:25 paper tape Allergy Rash/Hives Uncoded 03/08/19 23:25 Physical Exam Vitals: Vital Signs Temp Pulse Resp BP BP Pulse Ox 03/09/19 10:28 127/79 03/09/19 08:04 98.3 F 59 L 18 91/58 97 03/09/19 08:00 18 03/09/19 06:01 61 18 91/57 98 03/09/19 04:03 97.8 F 58 L 16 88/56 96 03/09/19 00:20 98.0 F 69 16 93/56 94 L 03/08/19 21:01 91 102/62 03/08/19 19:25 98.2 F 95 16 96/61 96 03/08/19 17:00 73 16 110/67 95 03/08/19 16:30 68 16 111/73 94 L 03/08/19 16:00 81 20 123/76 97 03/08/19 15:45 80 20 105/72 94 L 03/08/19 15:42 18 03/08/19 15:30 97.6 F 71 20 124/75 95 03/08/19 15:15 98.0 F 83 20 116/75 98 03/08/19 14:34 80 16 134/63 98 03/08/19 14:16 52 L 16 134/67 97 03/08/19 14:02 83 16 134/69 98 03/08/19 13:48 85 16 125/66 100 03/08/19 13:35 97.8 F 95 12 127/72 92 L Intake and Output 03/08/19 03/09/19 03/09/19 22:59 06:59 14:59 Output Total 150 233 45 Balance -150 -233 -45 Output: Drainage 150 233 45 left breast 110 225 40 right breast 40 8 5 Other: # Voids 1 1 Gen: This is a 58-year-old female. Patient is resting in bed and appears to be comfortable and in no acute distress. HEENT: Head is atraumatic, normocephalic. Pupils equal, round. Sclerae is anicteric. NECK: Supple. No JVD. No lymphadenopathy. No thyromegaly. LUNGS: Clear to auscultation. No wheezes or rhonchi. No intercostal retractions. HEART: Regular rate and rhythm. No murmur. BREASTS: Dressing to chest, dry and intact. AMELIE drain with serosanguineous drainage. ABDOMEN: Soft. Bowel sounds are present. No masses. No tenderness. EXTREMITIES: No pedal edema. No calf tenderness. NEUROLOGICAL: Patient is awake, alert and oriented x3. Cranial nerves 2 through 12 are grossly intact. Results CBC & Chem 7: 03/09/19 06:46 Labs: Abnormal Lab Results - Last 24 Hours (Table) 03/09/19 Range/Units 06:46 RBC 3.50 L (3.80-5.40) m/uL Hgb 10.8 L (11.4-16.0) gm/dL Hct 32.9 L (34.0-46.0) % Plt Count 141 L (150-450) k/uL Assessment and Plan Plan: 1. Left breast cancer status post bilateral simple mastectomy with left sentinel node biopsy in the care of Dr. Coley. Patient is postop day #1. She has had no postop complications. She did have increased output from AMELIE drain which is been monitored. Pain is controlled. 2. COPD, stable without exacerbation. Continue DuoNeb treatments 4 times daily as needed and Singulair 10 mg at bedtime. 3. Hypertension. Continue Lopressor 25 mg twice daily. Hytrin on hold. 4. Hyperlipidemia. Continue Lipitor. 5. Obstructive sleep apnea on CPAP. 6. Tobacco use and dependence currently on Chantix. 7. Hypothyroidism. 8. Aortic aneurysm monitored by her mailroom assistant and Dr. Nichols. 9. History of morbid obesity status post gastric sleeve in 2018. 10. DVT prophylaxis. Lovenox daily. 11. Migraine headaches. Continue Imitrex as needed. 12. Insomnia. Continue trazodone 100 mg at bedtime. 13. Hypothyroidism. Continue levothyroxine 200 g daily. 14. GI prophylaxis, gastroesophageal reflux disease. Continue Protonix Discharge plan:Return home tomorrow. Impression and plan of care have been directed as dictated by the signing physician. Shanthi Potter nurse practitioner acting as scribe for signing physician.
[2019-03-09] MEDS: METOPROLOL TARTRATE 25 MG TAB PO SCH ×2 (17:37→21:17)
[2019-03-09] MEDS: LACTATED RINGERS 1,000 ML IV SCH (17:40)
[2019-03-09] MEDS: ATORVASTATIN 10 MG TAB PO SCH (21:17)
[2019-03-09] MEDS: MONTELUKAST 10 MG TAB PO SCH (21:18)
[2019-03-09] MEDS: traZODone HCL 100 MG TAB PO SCH (21:18)
[2019-03-10] MEDS: KETOROLAC 30 MG/ML 1 ML VIAL IVP SCH ×2 (01:40→07:24)
[2019-03-10] MEDS: HYDROcodone/APAP 5-325MG 1 EACH TAB PO PRN ×2 (05:36→11:19)
[2019-03-10] MEDS: HYDROmorphone 0.5 MG/0.5 ML SYRINGE IVP PRN (05:37)
[2019-03-10] MEDS: LEVOTHYROXINE 100 MCG TAB PO SCH (05:48)
[2019-03-10 06:40] LABS: Basophils % (A) 0 %; Eosinophils # (A) 0.3 k/uL (0-0.7); Eosinophils % (A) 3 %; HCT 30.4 % (34.0-46.0); HGB 10.1 gm/dL (11.4-16.0); Lymphocytes # (A) 1.9 k/uL (1.0-4.8); Lymphocytes % (A) 16 %; MCHC 33.2 g/dL (31.0-37.0); MCV 93.5 fL (80.0-100.0); Monocytes # (A) 0.5 k/uL (0-1.0); Monocytes % (A) 4 %; Neutrophils # (A) 9.1 k/uL (1.3-7.7); Neutrophils % (A) 76 %; Platelet Count 147 k/uL (150-450); RBC 3.25 m/uL (3.80-5.40); RDW 13.5 % (11.5-15.5); WBC 11.9 k/uL (3.8-10.6)
[2019-03-10] MEDS: PANTOPRAZOLE 40 MG TABLET PO SCH (07:24)
[2019-03-10] MEDS: METOPROLOL TARTRATE 25 MG TAB PO SCH (09:35)
[2019-03-10] MEDS: BACLOFEN 10 MG TAB PO SCH (09:35)
[2019-03-10] MEDS: MULTIVITAMINS, THERA 1 EACH TAB PO SCH (09:35)
[2019-03-10] MEDS: MECLIZINE 25 MG TAB PO SCH (09:35)
[2019-03-10] MEDS: ENOXAPARIN 40 MG/0.4 ML SYRINGE SQ SCH (09:36)
[2019-03-10] MEDS: VARENICLINE 1 MG TAB PO SCH (09:36)
[2019-03-10] MEDS: LACTATED RINGERS 1,000 ML IV SCH (09:38)
[2019-03-10 12:33] VITALS: BP 104/63; PULSE 51; RESP 20; TEMP 98.9
--- NOTE | 2019-03-10 14:02 | P.DS ---
Providers Date of admission: 03/08/19 21:59 Expected date of discharge: 03/10/19 Attending physician: Navid Coley Consults: 03/08/19 13:27 Consult Physician Routine Consulting Provider: Scott Hammond Consult Reason/Comments: Medical management Do you want consulting provider notified?: Yes Primary care physician: [facility] Course: 58-year-old female who underwent bilateral simple mastectomy with left sentinel node biopsy. Patient is doing well postoperatively. Pain controlled on oral medications. Tolerating diet. No nausea or vomiting. AMELIE drains with small amount of serosanguineous drainage. Vital signs have been stable. She is stable for discharge home today. Please see EMR for further hospital course details. Discharge Diagnosis: 1. Left breast cancer, status post bilateral simple mastectomy with left sentinel node biopsy Nurse practitioner note has been reviewed by physician. Signing provider agrees with the documented findings, assessment, and plan of care. Plan - Discharge Summary Discharge Rx Participant: No New Discharge Prescriptions: New Hydrocodone/Acetaminophen [Warrens 5-325] 1 tab PO Q4HR PRN 3 Days #18 tab PRN Reason: Pain No Action traZODone HCL [Desyrel] 100 mg PO HS Montelukast [Singulair] 10 mg PO HS Levothyroxine Sodium [Synthroid] 200 mcg PO DAILY Metoprolol Tartrate [Lopressor] 25 mg PO BID Atorvastatin [Lipitor] 10 mg PO HS Baclofen [Lioresal] 10 mg PO TID SUMAtriptan SUCCINATE [Imitrex] 100 mg PO BID PRN PRN Reason: pain Clindamycin Topical Soln [Cleocin-T Topical Soln] 1 applic TOPICAL BID Ergocalciferol (Vitamin D2) [Vitamin D2] 50,000 unit PO BUCKLEY Terazosin [Hytrin] 2 mg PO HS Varenicline [Chantix Continuing Pack] 1 mg PO BID Omeprazole [PriLOSEC] 20 mg PO AC-BID Collagen Protein 20.1 gm PO DAILY Meclizine [Antivert] 25 mg PO BID Ipratropium/Albuterol Sulfate [Combivent Respimat Inhaler] 1 puff INHALATION RT-QID PRN PRN Reason: Wheezing Multivitamins, Thera [Multivitamin (formulary)] 1 tab PO DAILY Vitamin C/Biotin [Hair, Skin and Nails] 1 tab PO DAILY Discharge Medication List traZODone HCL [Desyrel] 100 mg PO HS 11/21/14 [History] Montelukast [Singulair] 10 mg PO HS 12/27/15 [History] Atorvastatin [Lipitor] 10 mg PO HS 11/24/17 [History] Levothyroxine Sodium [Synthroid] 200 mcg PO DAILY 11/24/17 [History] Metoprolol Tartrate [Lopressor] 25 mg PO BID 11/24/17 [History] Baclofen [Lioresal] 10 mg PO TID 05/25/18 [History] Clindamycin Topical Soln [Cleocin-T Topical Soln] 1 applic TOPICAL BID 06/22/18 [History] Collagen Protein 20.1 gm PO DAILY 06/22/18 [History] Ergocalciferol (Vitamin D2) [Vitamin D2] 50,000 unit PO BUCKLEY 06/22/18 [History] Omeprazole [PriLOSEC] 20 mg PO AC-BID 06/22/18 [History] SUMAtriptan SUCCINATE [Imitrex] 100 mg PO BID PRN 06/22/18 [History] Terazosin [Hytrin] 2 mg PO HS 06/22/18 [History] Varenicline [Chantix Continuing Pack] 1 mg PO BID 06/22/18 [History] Meclizine [Antivert] 25 mg PO BID 02/05/19 [History] Ipratropium/Albuterol Sulfate [Combivent Respimat Inhaler] 1 puff INHALATION RT- QID PRN 03/04/19 [History] Multivitamins, Thera [Multivitamin (formulary)] 1 tab PO DAILY 03/04/19 [History] Vitamin C/Biotin [Hair, Skin and Nails] 1 tab PO DAILY 03/04/19 [History] Hydrocodone/Acetaminophen [Warrens 5-325] 1 tab PO Q4HR PRN 3 Days #18 tab 03/10/19 [Rx] Follow up Appointment(s)/Referral(s): Hugo Preston MD [Primary Care Provider] - 1 Week Navid Coley MD [STAFF PHYSICIAN] - 03/16/19 2:20 pm Activity/Diet/Wound Care/Special Instructions: No driving while taking Warrens No lifting over 10 pounds You may shower. No soaking or tub baths Very light activity until you are reevaluated at your follow up appointment with your surgeon
--- NOTE | 2019-03-10 16:01 | P.PN ---
Subjective Progress Note Date: 03/10/19 This is a 58-year-old female patient of Dr. Hugo Preston with past medical history of hypertension, hyperlipidemia, obstructive sleep apnea on CPAP, aortic aneurysm monitored by Dr. Vazquez and Simone Pham, history of morbid obesity status post gastric sleeve in 2018, PTSD, tobacco use and d ependencequit October 2018. Patient has been brought in the hospital under the care of Dr. Coley status post bilateral simple mastectomy with left sentinel node biopsy. She had biopsy done February 17 which was positive for invasive carcinoma. This is postoperative day #1. Patient denies any nausea or vomiting. She is tolerating her diet. She states she has had increased AMELIE drainage overnight and plan was to keep her another day to monitor. 03/10: Pain is currently controlled. Repeat hemoglobin 10.1. Patient states that her pain is tolerable. She carries nausea this morning which she thinks is because she ate too fast. For home we will discontinue Hytrin and patient understands. Patient anticipates discharge home today. Review of Systems Constitutional: Denies anorexia, Denies chills, Denies fatigue, Denies fever, Denies lethargy, Denies malaise, Denies poor appetite Eyes: denies blurred vision, denies pain Ears, nose, mouth and throat: Denies dysphagia, Denies headache, Denies nasal congestion, Denies nasal discharge, Denies sore throat, Denies vertigo Breasts: bilateral: pain (controlled) Cardiovascular: Denies chest pain, Denies decreased exercise tolerance, Denies dyspnea on exertion, Denies edema, Denies leg edema, Denies shortness of breath, Denies syncope Respiratory: Reports sleep apnea, Denies cough, Denies cough with sputum, Denies dyspnea, Denies excessive sputum, Denies hemoptysis, Denies home oxygen, Denies wheezing Gastrointestinal: Denies abdominal pain, Denies diarrhea, Denies loss of appetite, reports nausea, Denies vomiting Genitourinary: Denies dysuria, Denies hematuria, Denies urgency, Denies urinary frequency Musculoskeletal: Denies frequent falls, Denies gait dysfunction, Denies muscle weakness, Denies myalgias Integumentary: Denies pruritus, Denies rash, Denies wounds Neurological: Denies change in mentation, Denies change in speech, Denies gait dysfunction, Denies numbness, Denies weakness Psychiatric: Denies anxiety, Denies depression Endocrine: Denies fatigue, Denies weight change Objective - Vital Signs Vital signs: Vital Signs Temp 97.8 F 03/10/19 08:10 Pulse 61 03/10/19 08:10 Resp 16 03/10/19 08:10 BP 101/67 03/10/19 08:10 Pulse Ox 94 L 03/10/19 08:10 Intake & Output 03/09/19 03/10/19 03/10/19 18:59 06:59 18:59 Output Total 105 80 Balance -105 -80 Output: Drainage 105 80 left breast 90 50 right breast 15 30 Other: Voiding Method Toilet # Voids 3 1 2 - Exam Gen: This is a 58-year-old female. Patient is resting in bed in no acute distress. HEENT: Head is atraumatic, normocephalic. Pupils equal, round. Sclerae is anicteric. NECK: Supple. No JVD. No lymphadenopathy. No thyromegaly. LUNGS: Clear to auscultation. No wheezes or rhonchi. No intercostal retractions. HEART: Regular rate and rhythm. No murmur. BREASTS: Dressing to chest, dry and intact. AMELIE drain with serosanguineous drainage. ABDOMEN: Soft. Bowel sounds are present. No masses. No tenderness. EXTREMITIES: No pedal edema. No calf tenderness. NEUROLOGICAL: Patient is awake, alert and oriented x3. Cranial nerves 2 through 12 are grossly intact. - Labs CBC & Chem 7: 03/10/19 06:24 Labs: Abnormal Lab Results - Last 24 Hours (Table) 03/10/19 Range/Units 06:24 WBC 11.9 H (3.8-10.6) k/uL RBC 3.25 L (3.80-5.40) m/uL Hgb 10.1 L (11.4-16.0) gm/dL Hct 30.4 L (34.0-46.0) % Plt Count 147 L (150-450) k/uL Neutrophils # 9.1 H (1.3-7.7) k/uL Assessment and Plan Plan: 1. Left breast cancer status post bilateral simple mastectomy with left sentinel node biopsy in the care of Dr. Coley. Patient is postop day #1. She has had no postop complications. She did have increased output from AMELIE drain which is been monitored. Pain is controlled. 2. COPD, stable without exacerbation. Continue DuoNeb treatments 4 times daily as needed and Singulair 10 mg at bedtime. 3. Hypertension. Continue Lopressor 25 mg twice daily. Hytrin on hold and will be discontinued for home. 4. Hyperlipidemia. Continue Lipitor. 5. Obstructive sleep apnea on CPAP. 6. Tobacco use and dependence currently on Chantix. 7. Hypothyroidism. 8. Aortic aneurysm monitored by her scanner operator and Dr. Nichols. 9. History of morbid obesity status post gastric sleeve in 2018. 10. DVT prophylaxis. Lovenox daily. 11. Migraine headaches. Continue Imitrex as needed. 12. Insomnia. Continue trazodone 100 mg at bedtime. 13. Hypothyroidism. Continue levothyroxine 200 g daily. 14. GI prophylaxis, gastroesophageal reflux disease. Continue Protonix Discharge plan:Return home Impression and plan of care have been directed as dictated by the signing physician. Shanthi Potter nurse practitioner acting as scribe for signing physician.
--- NOTE | 2019-03-12 12:33 | P.OP ---
Date of Procedure: 03/08/19 Preoperative Diagnosis: Left Breast cancer Postoperative Diagnosis: Left breast cancer Procedure(s) Performed: Bilateral simple mastectomy with left sentinel axillary excision Anesthesia: NAIN Surgeon: Navid Coley Estimated Blood Loss (ml): 30 Pathology: other (Bilateral breast and sentinel node) Condition: stable Disposition: PACU Description of Procedure: The patient's placed on the operative table in the supine position. She received general anesthesia. Her chest was prepped and draped usual sterile fashion. The left breast was injected with methylene blue. The breast was massaged prostate 5 minutes. The breast was then marked and the mastectomy flap was created on the left breast first. The skin was incised with 15 blade and using electrocautery the mastectomy flap was elevated to the level of the clavicle superiorly the sternal medial the inframammary crease inferiorly and the sella laterally. The breast was then removed from the chest wall using electrocautery. The specimen was orientated with sutures. It was sent to pathology. In the left axilla the sentinel node was found. The neoprobe isolated cell lobe and then the sentinel node was dissected using Harmonic scissors. The specimens of pathology. There is known to any cancer within the sentinel node. The skin was then closed with 3-0 Monocryl after AMELIE drain is placed in mastectomy bed. Next the right seminal symptoms performed. The skin was marked and then using a 15 blade the skin was incised in the mastectomy flaps were created superiorly to the level of the clavicle medially to the level of the sternum and in fairly to the crease and laterally to the axilla. The breast then removed from the chest wall and sent to pathology. A AMELIE drains placed through separate stab incision the skin was closed interrupted 3-0 Monocryl suture. Dermabond was applied. Patient top she will was sent to recovery room in stable condition.
== END 2019-03-10 15:00 | disposition home or self-care (01) ==
LOC: OR 08:03 → 6PED 13:30 → OR 21:59 → 6PED 21:59
PROVIDERS: ADMIT Surgery; ATTEND Surgery
DX: C50.912 Malignant neoplasm of unspecified site of left female breast (principal); I10 Essential (primary) hypertension; E78.5 Hyperlipidemia, unspecified; G47.33 Obstructive sleep apnea (adult) (pediatric); Z99.89 Dependence on other enabling machines and devices; I71.9 Aortic aneurysm of unspecified site, without rupture; E66.01 Morbid (severe) obesity due to excess calories; Z68.26 Body mass index [BMI] 26.0-26.9, adult; Z98.84 Bariatric surgery status; F43.10 Post-traumatic stress disorder, unspecified; J44.9 Chronic obstructive pulmonary disease, unspecified; E03.9 Hypothyroidism, unspecified; R42 Dizziness and giddiness; K21.9 Gastro-esophageal reflux disease without esophagitis; G89.29 Other chronic pain; M54.9 Dorsalgia, unspecified; G47.00 Insomnia, unspecified; G43.909 Migraine, unspecified, not intractable, without status migrainosus; F32.9 Major depressive disorder, single episode, unspecified; F17.210 Nicotine dependence, cigarettes, uncomplicated; Z79.899 Other long term (current) drug therapy; Z79.890 Hormone replacement therapy; Z91.040 Latex allergy status; Z91.048 Other nonmedicinal substance allergy status; Z80.1 Family history of malignant neoplasm of trachea, bronchus and lung; Z83.3 Family history of diabetes mellitus; Z82.49 Family history of ischemic heart disease and other diseases of the circulatory system; Z80.3 Family history of malignant neoplasm of breast
CPT/HCPCS: 38792; 85025; 88307; 88331; 88341; 88342

== ENCOUNTER 2019-04-09 09:57 | Emergency (ER) | payer MEDICARE, OTHER ==
[2019-04-09 10:24] VITALS: BP 113/74; PULSE 53; RESP 18; TEMP 98.1
[2019-04-09] MEDS ORDERED: CEPHALEXIN 500MG STARTER PACK 4 CAP BTL PO STA (11:12)
--- NOTE | 2019-04-09 11:18 | ED ---
General Adult HPI - General Chief complaint: Recheck/Abnormal Lab/Rx Stated complaint: post mastectomy incision problem Time Seen by Provider: 04/09/19 10:25 Source: patient Mode of arrival: ambulatory Limitations: no limitations - History of Present Illness Initial comments: Patient is 58-year-old female presenting to emergency Department with a chief complaint of surgical site drainage. Patient reports a bilateral mastectomy one month ago. Patient reports she went to see the surgeon,Dr. Panda, 3 days ago remove excess tissue and pack the site on the left side. She reports she was advised to change the bandages daily. She reports that recently she attempted to change the bandage and the gauze packing came out from the wound. Patient reports that she noticed yellow discharge with a foul smell. Although, patient reports the drainage is within the wound did not coming out. Patient denies any erythema around the incision site. Patient denies any nausea or vomiting fevers or chills. - Related Data Home Medications Medication Instructions Recorded Confirmed traZODone HCL [Desyrel] 100 mg PO HS 11/21/14 03/08/19 Montelukast [Singulair] 10 mg PO HS 12/27/15 03/08/19 Atorvastatin [Lipitor] 10 mg PO HS 11/24/17 03/08/19 Levothyroxine Sodium [Synthroid] 200 mcg PO DAILY 11/24/17 03/08/19 Metoprolol Tartrate [Lopressor] 25 mg PO BID 11/24/17 03/08/19 Baclofen [Lioresal] 10 mg PO TID 05/25/18 03/08/19 Clindamycin Topical Soln 1 applic TOPICAL BID 06/22/18 03/08/19 [Cleocin-T Topical Soln] Collagen Protein 20.1 gm PO DAILY 06/22/18 03/08/19 Ergocalciferol (Vitamin D2) 50,000 unit PO BUCKLEY 06/22/18 03/08/19 [Vitamin D2] Omeprazole [PriLOSEC] 20 mg PO AC-BID 06/22/18 03/08/19 SUMAtriptan SUCCINATE [Imitrex] 100 mg PO BID PRN 06/22/18 03/08/19 Varenicline [Chantix Continuing 1 mg PO BID 06/22/18 03/08/19 Pack] Meclizine [Antivert] 25 mg PO BID 02/05/19 03/08/19 Ipratropium/Albuterol Sulfate 1 puff INHALATION RT-QID PRN 03/04/19 03/08/19 [Combivent Respimat Inhaler] Multivitamins, Thera [Multivitamin 1 tab PO DAILY 03/04/19 03/08/19 (formulary)] Vitamin C/Biotin [Hair, Skin and 1 tab PO DAILY 03/04/19 03/08/19 Nails] Previous Rx's Medication Instructions Recorded Hydrocodone/Acetaminophen [[place] 1 tab PO Q4HR PRN 3 Days #18 tab 03/10/19 5-325] Levofloxacin [Levaquin] 500 mg PO DAILY #5 tab 03/10/19 Cephalexin [Keflex] 500 mg PO Q6HR #40 cap 04/09/19 Allergies Allergy/AdvReac Type Severity Reaction Status Date / Time latex Allergy Rash/Hives Verified 04/09/19 10:24 nickel Allergy Rash/Hives Verified 04/09/19 10:24 paper tape Allergy Rash/Hives Uncoded 04/09/19 10:24 Review of Systems ROS Statement: Those systems with pertinent positive or pertinent negative responses have been documented in the HPI. ROS Other: All systems not noted in ROS Statement are negative. Past Medical History Past Medical History: COPD, GERD/Reflux, Hyperlipidemia, Hypertension, Sleep Apnea/CPAP/BIPAP, Thyroid Disorder Additional Past Medical History / Comment(s): migraines, insomnia, obstructive sleep apnea on CPAP, vertigo, chronic back pain, aortic aneurysm 4.5cm History of Any Multi-Drug Resistant Organisms: None Reported Past Surgical History: Bariatric Surgery, Bladder Surgery, Orthopedic Surgery Additional Past Surgical History / Comment(s): eye surgery, left thumb surgery, EGD,. sleeve gastrectomy (04-20-18) Past Anesthesia/Blood Transfusion Reactions: No Reported Reaction Past Psychological History: Depression, PTSD Smoking Status: Former smoker Past Alcohol Use History: Occasional Past Drug Use History: Marijuana - Past Family History Mother Family Medical History: Cancer Additional Family Medical History / Comment(s): mother due to lung cancer. Patient has 2 aunts had breast cancer. Patient does not have any children. Father Family Medical History: Coronary Artery Disease (CAD), Diabetes Mellitus Additional Family Medical History / Comment(s): Father is alive with history of CAD, DM and is on home O2. She does not know any further details. Sister(s) Additional Family Medical History / Comment(s): ETOH the patient has 2 sisters and one half-sister with no major medical problems. Brother(s) Family Medical History: Coronary Artery Disease (CAD) Additional Family Medical History / Comment(s): Patient has one brother with history of coronary artery disease status post CABG in heart failure. General Exam Limitations: no limitations General appearance: alert, in no apparent distress Head exam: Present: atraumatic, normocephalic, normal inspection Eye exam: Present: normal appearance Pupils: Present: normal accommodation ENT exam: Present: normal exam, normal oropharynx, mucous membranes moist, TM's normal bilaterally, normal external ear exam Neck exam: Present: normal inspection, full ROM Respiratory exam: Present: normal lung sounds bilaterally, other (Bilateral mastectomy. Gauze packing on the left side with very mild yellow drainage and foul odor. No surrounding erythema. Incision site does not appear infected.) Cardiovascular Exam: Present: regular rate, normal rhythm, normal heart sounds Extremities exam: Present: normal inspection, full ROM Back exam: Present: normal inspection, full ROM Neurological exam: Present: alert, oriented X3 Psychiatric exam: Present: normal affect, normal mood Skin exam: Present: warm, intact, normal color Course Vital Signs 04/09/19 10:22 Temperature 98.1 F Pulse Rate 53 L Respiratory 18 Rate Blood Pressure 113/74 O2 Sat by Pulse 98 Oximetry Medical Decision Making - Medical Decision Making Patient is a 58-year-old female presenting to emergency Department with a chief complaint of incision site drainage. Patient had bilateral mastectomy and is, in with drainage from the left side. Patient had revision on the incision site 3 days ago. Physical examination there is only mild yellow discharge but no surrounding erythema and a little bit of foul smell. Wound culture was obtained. Patient doesn't appear septic. Vital signs are stable. Patient had no fevers or chills at home. Patient will be placed on Keflex for 10 days. Strict return parameters were thoroughly discussed with patient was unde rstanding and agreeable. Patient has an appointment to see the surgeon in 6 days. Case discussed with Dr. Rider. Disposition Clinical Impression: Encounter for wound re-check Disposition: HOME SELF-CARE Condition: Stable Instructions (If sedation given, give patient instructions): Cellulitis (DC) Additional Instructions: Patient advised to follow-up with a surgeon. Please take prescribed medication as directed. Please return to emergency department if symptoms worsen. Is patient prescribed a controlled substance at d/c from ED?: No Referrals: Hugo Preston MD [Primary Care Provider] - 1-2 days Time of Disposition: 11:18
== END 2019-04-09 11:34 | disposition home or self-care (01) ==
LOC: EC 09:57
DX: Z48.817 Encounter for surgical aftercare following surgery on the skin and subcutaneous tissue (principal); J44.9 Chronic obstructive pulmonary disease, unspecified; K21.9 Gastro-esophageal reflux disease without esophagitis; E78.5 Hyperlipidemia, unspecified; I10 Essential (primary) hypertension; G47.33 Obstructive sleep apnea (adult) (pediatric); G47.00 Insomnia, unspecified; G89.29 Other chronic pain; E07.9 Disorder of thyroid, unspecified; F32.9 Major depressive disorder, single episode, unspecified; Z87.891 Personal history of nicotine dependence; Z91.040 Latex allergy status; Z91.048 Other nonmedicinal substance allergy status; Z79.890 Hormone replacement therapy; Z79.899 Other long term (current) drug therapy; Z90.13 Acquired absence of bilateral breasts and nipples; Z99.89 Dependence on other enabling machines and devices; Z80.3 Family history of malignant neoplasm of breast
CPT/HCPCS: 87070; 87205; 99283

== ENCOUNTER → 2019-10-22 | Outpatient (CLI) | payer MEDICARE, OTHER | END | disposition home or self-care (01) | LOC: LABWHC1 07:33 | PROVIDERS: ATTEND Surgery | DX: U07.1 COVID-19 (principal) | CPT/HCPCS: 87635 ==

== ENCOUNTER → 2019-11-16 | Outpatient (CLI) | payer MEDICARE, OTHER | END | disposition home or self-care (01) | LOC: LABWHC1 09:43 | PROVIDERS: ATTEND Surgery | DX: Z11.59 Encounter for screening for other viral diseases (principal) ==

== ENCOUNTER → 2019-11-19 | Day surgery (SDC) | payer MEDICARE, OTHER ==
[2019-11-18 09:50] VITALS: BMI 25.3
[~2019-11-19] MED LIST changes: -DEXAMETHASONE SOD PHOSPHATE 10 MG/ML 1 ML VIAL IV ONE; -HEPARIN SODIUM,PORCINE 5,000 UNIT/ML 1 ML VIAL SQ ONE; +LACTATED RINGERS 1,000 ML IV SCH; +LIDOCAINE 1% (10MG/ML) FOR IV START INTRADERMA ONE; -LIDOCAINE 1% 20 ML VIAL (10MG/ML) FOR IV START INTRADERMA PRN; -MIDAZOLAM 2 MG/2 ML VIAL IV PRN; +PROPOFOL 10 MG/ML 20 ML VIAL IV ONE; -Pre Op ABX Message 1 EACH MISC MISCELLANE ONE
[2019-11-19 10:35] VITALS: RESP 16; TEMP 98.4
--- NOTE | 2019-11-19 10:58 | P.GSHP ---
History of Present Illness H&P Date: 11/19/19 Chief Complaint: Screening colonoscopy This 59-year-old female who presents today for screening colonoscopy. Patient denies any significant GI complaints. Past Medical History Past Medical History: Cancer, COPD, GERD/Reflux, Hyperlipidemia, Hypertension, Sleep Apnea/CPAP/BIPAP, Thyroid Disorder Additional Past Medical History / Comment(s): migraines, insomnia, C-pap machine, severe vertigo- uses cane.,states low heart rate., hx colon polyp., chronic back pain, aortic aneurysm , Breast cancer (surgery 06/2019), Sleeve Gastrectomy (04/2018)., internal hemorrhoids. History of Any Multi-Drug Resistant Organisms: None Reported Past Surgical History: Bariatric Surgery, Bladder Surgery, Breast Surgery, Orthopedic Surgery Additional Past Surgical History / Comment(s): eye surgery, left thumb surgery, EGD, Double Mastectomy (06/2019). sleeve gastrectomy (04-20-18) Past Anesthesia/Blood Transfusion Reactions: No Reported Reaction, Motion Sickness Past Psychological History: Depression, PTSD Smoking Status: Former smoker Past Alcohol Use History: Occasional Additional Past Alcohol Use History / Comment(s): Quit smoking 2018., smoked from age 8, smoked 1/2 to 1 ppd. Past Drug Use History: Marijuana Additional Drug Use History / Comment(s): current marijuana use - Past Family History Mother Family Medical History: Cancer Additional Family Medical History / Comment(s): mother due to lung cancer. Patient has 2 aunts had breast cancer. Patient does not have any children. Father Family Medical History: Coronary Artery Disease (CAD), Diabetes Mellitus Additional Family Medical History / Comment(s): Father is alive with history of CAD, DM and is on home O2. She does not know any further details. Sister(s) Additional Family Medical History / Comment(s): ETOH the patient has 2 sisters and one half-sister with no major medical problems. Brother(s) Family Medical History: Coronary Artery Disease (CAD) Additional Family Medical History / Comment(s): Patient has one brother with history of coronary artery disease status post CABG in heart failure. Medications and Allergies Home Medications Medication Instructions Recorded Confirmed Type traZODone HCL [Desyrel] 100 mg PO HS 11/21/14 11/19/19 History Montelukast [Singulair] 10 mg PO HS 12/27/15 11/19/19 History Atorvastatin [Lipitor] 10 mg PO HS 11/24/17 11/19/19 History Levothyroxine Sodium [Synthroid] 200 mcg PO Q2D 11/24/17 11/19/19 History Baclofen [Lioresal] 10 mg PO TID 05/25/18 11/19/19 History Omeprazole [PriLOSEC] 20 mg PO AC-BID 06/22/18 11/19/19 History SUMAtriptan SUCCINATE [Imitrex] 100 mg PO BID PRN 06/22/18 11/19/19 History Varenicline [Chantix Continuing 1 mg PO DAILY 06/22/18 11/19/19 History Pack] Meclizine [Antivert] 25 mg PO TID 02/05/19 11/19/19 History Vitamin C/Biotin [Hair, Skin and 1 tab PO BID 03/04/19 11/19/19 History Nails] Anastrozole [Arimidex] 1 mg PO DAILY 10/22/19 11/19/19 History Cholecalciferol [Vitamin D3 (25 2,000 unit PO DAILY 10/22/19 11/19/19 History Mcg = 1000 Iu)] Cyanocobalamin [Vitamin B-12] 1,500 mcg PO DAILY 10/22/19 11/19/19 History Ferrous Sulfate [Feosol] 325 mg PO DAILY 10/22/19 11/19/19 History L.acidoph,Paracasei, B.lactis 1 each PO DAILY 10/22/19 11/19/19 History [Probiotic] Terazosin [Hytrin] 1 mg PO HS 10/22/19 11/19/19 History diphenhydrAMINE [Benadryl] 25 mg PO BID PRN 10/22/19 11/19/19 History Calcium Citrate 1,000 mg PO QAM 11/18/19 11/19/19 History Calcium Citrate 500 mg PO HS 11/18/19 11/19/19 History Mag Hydrox/Al Hydrox/Simeth 1 dose PO DAILY 11/18/19 11/19/19 History [Maalox] Multivit with Calcium,Iron,Min 1 each PO DAILY 11/18/19 11/19/19 History [Women's Multivitamin] Prebiotic 1 dose PO DAILY 11/18/19 11/19/19 History amLODIPine [Norvasc] 2.5 mg PO DAILY 11/18/19 11/19/19 History Allergies Allergy/AdvReac Type Severity Reaction Status Date / Time latex Allergy Rash/Hives Verified 11/19/19 10:19 nickel Allergy Rash/Hives Verified 11/19/19 10:19 paper tape Allergy Rash/Hives Uncoded 11/19/19 10:19 Surgical - Exam Vital Signs Temp Pulse Resp BP Pulse Ox 98.4 F 67 16 101/75 97 11/19/19 10:31 11/19/19 10:31 11/19/19 10:31 11/19/19 10:31 11/19/19 10:31 - General well developed, well nourished, no distress - Eyes PERRL - ENT normal pinna - Neck no masses - Respiratory normal expansion - Cardiovascular Rhythm: regular - Abdomen Abdomen: soft, non tender Assessment and Plan Assessment: We'll perform screening colonoscopy
--- NOTE | 2019-11-19 11:15 | P.OP ---
Date of Procedure: 11/19/19 Preoperative Diagnosis: Screening colonoscopy Postoperative Diagnosis: Rectal polyp Procedure(s) Performed: Colonoscopy Anesthesia: MAC Surgeon: Navid Coley Pathology: other (Rectal polyp) Condition: stable Disposition: PACU Description of Procedure: Patient's placed on the endoscopy table in the lateral position. She received IV sedation. Digital rectal exam was performed which revealed no rebound. The flexible colonoscope was then placed patient anus passed throughout the entire colon. Ileocecal valve was. The cecum, ascending and transverse colon appeared normal. In the descending; there a few scattered diverticula. Scope summer back the rectum and this appeared normal. Scope was withdrawn for patient.
[2019-11-19 11:40] VITALS: BP 104/62; PULSE 60
--- NOTE | 2019-11-23 08:02 | CDI ---
Outpatient Documentation Clarification Form Date: 11/23/19 CDS/Audiologist Name: Loren Barr Phone: If any questions, call Katherin Del [facility] [employer] at [phone] Patient Name: Caleb Victoria Admit Date: 11/19/19 Discharge: 11/19/19 ATTENTION: The [facility] Coding Staff appreciate your assistance in clarifying documentation. Please respond to the clarification below the line at the bottom and electronically sign. The [facility] Coding staff will review the response and follow-up if needed. Please note: Queries are made part of the Legal Health Record. If you have any questions, please contact the Toolsmith. Dear Dr. Coley, Please provide clarification as to the procedure performed. There is a pathology report attached to this chart yet there is no mention of a biopsy being performed or a polyp being removed in the procedure note. Please clarify the procedure that was performed. Also, please clarify how the polyp was removed if performed. Thank you for your kind consideration. addendum to operative note made MTDD
== END ==
LOC: ORWHC2ENDO 09:39
PROVIDERS: ATTEND Surgery
DX: Z12.11 Encounter for screening for malignant neoplasm of colon (principal); K62.1 Rectal polyp; J44.9 Chronic obstructive pulmonary disease, unspecified; K21.9 Gastro-esophageal reflux disease without esophagitis; E78.5 Hyperlipidemia, unspecified; I10 Essential (primary) hypertension; G47.30 Sleep apnea, unspecified; Z99.89 Dependence on other enabling machines and devices; E07.9 Disorder of thyroid, unspecified; G43.909 Migraine, unspecified, not intractable, without status migrainosus; G47.00 Insomnia, unspecified; R42 Dizziness and giddiness; Z86.010 Personal history of colon polyps; G89.29 Other chronic pain; M54.9 Dorsalgia, unspecified; I71.4 Abdominal aortic aneurysm, without rupture; Z85.3 Personal history of malignant neoplasm of breast; Z98.84 Bariatric surgery status; K64.8 Other hemorrhoids; Z90.13 Acquired absence of bilateral breasts and nipples; Z98.890 Other specified postprocedural states; F32.9 Major depressive disorder, single episode, unspecified; F43.10 Post-traumatic stress disorder, unspecified; Z97.2 Presence of dental prosthetic device (complete) (partial); Z87.891 Personal history of nicotine dependence; Z80.1 Family history of malignant neoplasm of trachea, bronchus and lung; Z80.3 Family history of malignant neoplasm of breast; Z83.3 Family history of diabetes mellitus; Z82.49 Family history of ischemic heart disease and other diseases of the circulatory system; Z79.811 Long term (current) use of aromatase inhibitors; Z79.890 Hormone replacement therapy; Z79.899 Other long term (current) drug therapy; Z91.040 Latex allergy status; Z91.09 Other allergy status, other than to drugs and biological substances; Z91.048 Other nonmedicinal substance allergy status
CPT/HCPCS: 88305; 45380; J2704

== ENCOUNTER 2019-12-26 11:28 | Observation (INO) | payer MEDICARE, OTHER ==
[2019-12-26 12:01] LABS: Basophils # (A) 0.1 k/uL (0-0.2); Basophils % (A) 1 %; Eosinophils # (A) 0.1 k/uL (0-0.7); Eosinophils % (A) 2 %; HCT 46.9 % (34.0-46.0); HGB 14.9 gm/dL (11.4-16.0); Lymphocytes # (A) 2.1 k/uL (1.0-4.8); Lymphocytes % (A) 28 %; MCH 30.6 pg (25.0-35.0); MCHC 31.8 g/dL (31.0-37.0); MCV 96.1 fL (80.0-100.0); Mean Platelet Volume 7.5; Monocytes # (A) 0.4 k/uL (0-1.0); Monocytes % (A) 5 %; Neutrophils # (A) 4.6 k/uL (1.3-7.7); Neutrophils % (A) 61 %; Platelet Count 218 k/uL (150-450); RBC 4.87 m/uL (3.80-5.40); RDW 12.7 % (11.5-15.5); WBC 7.4 k/uL (3.8-10.6)
[2019-12-26 12:14] LABS: INR 0.9 (<1.2); Partial Thromboplastin Time 23.8 sec (22.0-30.0); Prothrombin Time 9.9 sec (9.0-12.0)
[2019-12-26 12:16] LABS: Calcium 10.2 mg/dL (8.4-10.2); Magnesium 2.1 mg/dL (1.6-2.3); Potassium 4.3 mmol/L (3.5-5.1); Total Bilirubin 0.8 mg/dL (0.2-1.3); Total Protein 7.9 g/dL (6.3-8.2)
--- NOTE | 2019-12-26 12:22 | XR ---
EXAMINATION TYPE: XR chest 2V DATE OF EXAM: 12/26/2019 COMPARISON: Prior chest x-ray 11/24/2017 HISTORY: Chest pain TECHNIQUE: Frontal and lateral views of the chest are obtained. FINDINGS: There is no focal air space opacity, pleural effusion, or pneumothorax seen. The cardiac silhouette size is within normal limits. Prominent lung volumes may be indicative of underlying COPD. There are overlying cardiac leads. The osseous structures are intact. IMPRESSION: No acute cardiopulmonary process.
[2019-12-26 12:25] LABS: D-Dimer 0.6 mg/L FEU (<0.60)
--- NOTE | 2019-12-26 13:23 | ED ---
General Adult HPI - General Chief complaint: Chest Pain Stated complaint: chets pain Time Seen by Provider: 12/26/19 11:35 Source: patient, RN notes reviewed, old records reviewed Mode of arrival: wheelchair Limitations: no limitations - History of Present Illness Initial comments: 59-year-old female history of hypercholesterolemia, current smoker presenting for evaluation of chest pain. Pain began as a sharp sudden onset of pain and then progressed with chest tightness which radiated into her neck. She has no known history of coronary artery disease. She denies any nausea or vomiting. No diaphoresis. No abdominal pain. - Related Data Home Medications Medication Instructions Recorded Confirmed traZODone HCL [Desyrel] 100 mg PO HS 11/21/14 11/19/19 Montelukast [Singulair] 10 mg PO HS 12/27/15 11/19/19 Atorvastatin [Lipitor] 10 mg PO HS 11/24/17 11/19/19 Levothyroxine Sodium [Synthroid] 200 mcg PO Q2D 11/24/17 11/19/19 Baclofen [Lioresal] 10 mg PO TID 05/25/18 11/19/19 Omeprazole [PriLOSEC] 20 mg PO AC-BID 06/22/18 11/19/19 SUMAtriptan SUCCINATE [Imitrex] 100 mg PO BID PRN 06/22/18 11/19/19 Varenicline [Chantix Continuing 1 mg PO DAILY 06/22/18 11/19/19 Pack] Meclizine [Antivert] 25 mg PO TID 02/05/19 11/19/19 Vitamin C/Biotin [Hair, Skin and 1 tab PO BID 03/04/19 11/19/19 Nails] Anastrozole [Arimidex] 1 mg PO DAILY 10/22/19 11/19/19 Cholecalciferol [Vitamin D3 (25 2,000 unit PO DAILY 10/22/19 11/19/19 Mcg = 1000 Iu)] Cyanocobalamin [Vitamin B-12] 1,500 mcg PO DAILY 10/22/19 11/19/19 Ferrous Sulfate [Feosol] 325 mg PO DAILY 10/22/19 11/19/19 L.acidoph,Paracasei, B.lactis 1 each PO DAILY 10/22/19 11/19/19 [Probiotic] Terazosin [Hytrin] 1 mg PO HS 10/22/19 11/19/19 diphenhydrAMINE [Benadryl] 25 mg PO BID PRN 10/22/19 11/19/19 Calcium Citrate 1,000 mg PO QAM 11/18/19 11/19/19 Calcium Citrate 500 mg PO HS 11/18/19 11/19/19 Mag Hydrox/Al Hydrox/Simeth 1 dose PO DAILY 11/18/19 11/19/19 [Maalox] Multivit with Calcium,Iron,Min 1 each PO DAILY 11/18/19 11/19/19 [Women's Multivitamin] Prebiotic 1 dose PO DAILY 11/18/19 11/19/19 amLODIPine [Norvasc] 2.5 mg PO DAILY 11/18/19 11/19/19 Allergies Allergy/AdvReac Type Severity Reaction Status Date / Time latex Allergy Rash/Hives Verified 12/26/19 11:31 nickel Allergy Rash/Hives Verified 12/26/19 11:31 paper tape Allergy Rash/Hives Uncoded 12/26/19 11:31 Review of Systems ROS Statement: Those systems with pertinent positive or pertinent negative responses have been documented in the HPI. ROS Other: All systems not noted in ROS Statement are negative. Past Medical History Past Medical History: Cancer, COPD, GERD/Reflux, Hyperlipidemia, Hypertension, Sleep Apnea/CPAP/BIPAP, Thyroid Disorder Additional Past Medical History / Comment(s): migraines, insomnia, C-pap machine, severe vertigo- uses cane.,states low heart rate., hx colon polyp., chronic back pain, aortic aneurysm , Breast cancer (surgery 06/2019), Sleeve Gastrectomy (04/2018)., internal hemorrhoids. History of Any Multi-Drug Resistant Organisms: None Reported Past Surgical History: Bariatric Surgery, Bladder Surgery, Breast Surgery, Orthopedic Surgery Additional Past Surgical History / Comment(s): eye surgery, left thumb surgery, EGD, Double Mastectomy (06/2019). sleeve gastrectomy (04-20-18) Past Anesthesia/Blood Transfusion Reactions: No Reported Reaction, Motion Sickness Past Psychological History: Depression, PTSD Smoking Status: Former smoker Past Alcohol Use History: Occasional Past Drug Use History: Marijuana - Past Family History Mother Family Medical History: Cancer Additional Family Medical History / Comment(s): mother due to lung cancer. Patient has 2 aunts had breast cancer. Patient does not have any children. Father Family Medical History: Coronary Artery Disease (CAD), Diabetes Mellitus Additional Family Medical History / Comment(s): Father is alive with history of CAD, DM and is on home O2. She does not know any further details. Sister(s) Additional Family Medical History / Comment(s): ETOH the patient has 2 sisters a nd one half-sister with no major medical problems. Brother(s) Family Medical History: Coronary Artery Disease (CAD) Additional Family Medical History / Comment(s): Patient has one brother with history of coronary artery disease status post CABG in heart failure. General Exam Limitations: no limitations General appearance: alert, in no apparent distress Head exam: Present: atraumatic, normocephalic Eye exam: Present: normal appearance, PERRL ENT exam: Present: normal exam Neck exam: Present: normal inspection. Absent: tenderness, meningismus Respiratory exam: Present: normal lung sounds bilaterally. Absent: respiratory distress, wheezes Cardiovascular Exam: Present: regular rate, normal rhythm GI/Abdominal exam: Present: soft. Absent: distended, tenderness, guarding Extremities exam: Present: normal inspection, normal capillary refill. Absent: pedal edema Neurological exam: Present: alert, oriented X3, CN II-XII intact. Absent: motor sensory deficit Psychiatric exam: Present: normal affect, normal mood Skin exam: Present: warm, dry, intact. Absent: cyanosis, diaphoretic Course Vital Signs 12/26/19 12/26/19 11:29 13:50 Temperature 98.0 F Pulse Rate 74 59 L Respiratory 20 16 Rate Blood Pressure 144/84 138/72 O2 Sat by Pulse 94 L 98 Oximetry EKG Findings - EKG Comments: EKG Findings:: EKG: Normal sinus rhythm, rightward axis, rate of 60, RI interval 150, QRS duration 86 QTC 436, no ST segment elevation. Medical Decision Making - Medical Decision Making 59-year-old female presenting for evaluation of chest pain. Pain dia initially sharp and then became typical substernal chest tightness with radiation to the neck. EKG is sinus rhythm with no ST segment elevation. Chest x-ray negative for acute cardiopulmonary disease. She does have a mildly elevated d-dimer and CT angiography was performed, shows reflux in the liver and concern for right- sided heart failure, no acute pulmonary embolism. Patient has normal CBC, normal CMP, negative initial troponin. Given the typical features she will be kept in observation for serial cardiac enzymes, telemetry, cardiology consultation, echo has been ordered, case has been discussed with Dr. Hammond who will admit. - Lab Data Result diagrams: 12/26/19 11:46 12/26/19 11:46 Lab Results 12/26/19 12/26/19 12/26/19 Range/Units 11:46 11:46 11:46 WBC 7.4 (3.8-10.6) k/uL RBC 4.87 (3.80-5.40) m/uL Hgb 14.9 (11.4-16.0) gm/dL Hct 46.9 H (34.0-46.0) % MCV 96.1 (80.0-100.0) fL MCH 30.6 (25.0-35.0) pg MCHC 31.8 (31.0-37.0) g/dL RDW 12.7 (11.5-15.5) % Plt Count 218 (150-450) k/uL Neutrophils % 61 % Lymphocytes % 28 % Monocytes % 5 % Eosinophils % 2 % Basophils % 1 % Neutrophils # 4.6 (1.3-7.7) k/uL Lymphocytes # 2.1 (1.0-4.8) k/uL Monocytes # 0.4 (0-1.0) k/uL Eosinophils # 0.1 (0-0.7) k/uL Basophils # 0.1 (0-0.2) k/uL PT 9.9 (9.0-12.0) sec INR 0.9 (<1.2) APTT 23.8 (22.0-30.0) sec D-Dimer 0.60 H (<0.60) mg/L FEU Sodium 141 (137-145) mmol/L Potassium 4.3 (3.5-5.1) mmol/L Chloride 104 (98-107) mmol/L Carbon Dioxide 27 (22-30) mmol/L Anion Gap 10 mmol/L BUN 17 (7-17) mg/dL Creatinine 1.01 (0.52-1.04) mg/dL Est GFR (CKD-EPI)AfAm 71 (>60 ml/min/1.73 sqM) Est GFR (CKD-EPI)NonAf 61 (>60 ml/min/1.73 sqM) Glucose 93 (74-99) mg/dL Calcium 10.2 (8.4-10.2) mg/dL Magnesium 2.1 (1.6-2.3) mg/dL Total Bilirubin 0.8 (0.2-1.3) mg/dL AST 32 (14-36) U/L ALT 36 H (4-34) U/L Alkaline Phosphatase 107 (38-126) U/L Troponin I (0.000-0.034) ng/mL Total Protein 7.9 (6.3-8.2) g/dL Albumin 5.0 (3.5-5.0) g/dL 12/26/19 Range/Units 11:46 WBC (3.8-10.6) k/uL RBC (3.80-5.40) m/uL Hgb (11.4-16.0) gm/dL Hct (34.0-46.0) % MCV (80.0-100.0) fL MCH (25.0-35.0) pg MCHC (31.0-37.0) g/dL RDW (11.5-15.5) % Plt Count (150-450) k/uL Neutrophils % % Lymphocytes % % Monocytes % % Eosinophils % % Basophils % % Neutrophils # (1.3-7.7) k/uL Lymphocytes # (1.0-4.8) k/uL Monocytes # (0-1.0) k/uL Eosinophils # (0-0.7) k/uL Basophils # (0-0.2) k/uL PT (9.0-12.0) sec INR (<1.2) APTT (22.0-30.0) sec D-Dimer (<0.60) mg/L FEU Sodium (137-145) mmol/L Potassium (3.5-5.1) mmol/L Chloride (98-107) mmol/L Carbon Dioxide (22-30) mmol/L Anion Gap mmol/L BUN (7-17) mg/dL Creatinine (0.52-1.04) mg/dL Est GFR (CKD-EPI)AfAm (>60 ml/min/1.73 sqM) Est GFR (CKD-EPI)NonAf (>60 ml/min/1.73 sqM) Glucose (74-99) mg/dL Calcium (8.4-10.2) mg/dL Magnesium (1.6-2.3) mg/dL Total Bilirubin (0.2-1.3) mg/dL AST (14-36) U/L ALT (4-34) U/L Alkaline Phosphatase (38-126) U/L Troponin I <0.012 (0.000-0.034) ng/mL Total Protein (6.3-8.2) g/dL Albumin (3.5-5.0) g/dL Disposition Clinical Impression: Chest pain Disposition: ADMITTED IP TO THIS [facility] Condition: Stable Is patient prescribed a controlled substance at d/c from ED?: No Referrals: Hugo Preston MD [Primary Care Provider] - 1-2 days Decision to Admit Reason: Admit from EC Decision Date: 12/26/19 Decision Time: 14:08
--- NOTE | 2019-12-26 13:39 | CT ---
EXAMINATION TYPE: CT angio chest DATE OF EXAM: 12/26/2019 COMPARISON: Chest x-ray same date, chest CT 11/30/2016 HISTORY: Chest pain CT DLP: 304.2 mGycm Automated exposure control for dose reduction was used. CONTRAST: CTA scan of the thorax is performed without and with IV Contrast, patient injected with 100 ml mL of Isovue 370, pulmonary embolism protocol. MIP images are created and reviewed. 3D reconstructed imag es are created on an independent workstation and reviewed. FINDINGS: LUNGS: The lungs are remarkable for groundglass nodule in the right lower lobe, axial image 79, there is a nodular density present smooth margins measuring 4 mm immediately posterior to the groundglass focus which is stable, there is no concerning parenchymal mass or nodule identified. There is no pl eural effusion or pneumothorax seen. Scattered emphysematous changes. The tracheobronchial tree is p atent. AORTA: No additional significant abnormality is seen. MEDIASTINUM: There is satisfactory enhancement of the pulmonary artery and its branches, there is no CT evidence for pulmonary embolism. There are no greater than 1 cm hilar or mediastinal lymph nodes. Minimal pericardial effusion is seen. OTHER: Postop changes are noted at the gastroesophageal junction, prominence of the distal esophagus may be related to surgery. There is some reflux of contrast within the hepatic veins and inferior ve na cava. IMPRESSION: NO PULMONARY EMBOLISM. CORRELATE TO EXCLUDE RIGHT HEART FAILURE. INDETERMINATE GROUNDGLASS NODULE, CO NSIDER FOLLOW-UP . POSTOP AND ADDITIONAL CHANGES DESCRIBED ABOVE.
[2019-12-26] MEDS ORDERED: ASPIRIN 325 MG TAB PO STA (13:54)
[2019-12-26] MEDS ORDERED: NALOXONE 0.4 MG/ML 1 ML VIAL IV PRN (14:00)
[2019-12-26] MEDS ORDERED: ACETAMINOPHEN TAB 325 MG TAB PO PRN (14:00)
[2019-12-26] MEDS ORDERED: MORPHINE SULFATE 4 MG/ML SYRINGE IV PRN (14:00)
[2019-12-26] MEDS ORDERED: diphenhydrAMINE 25 MG CAP PO PRN (22:00)
[2019-12-26] MEDS ORDERED: DOXAZOSIN 1 MG TAB PO SCH (22:00)
[2019-12-26] MEDS ORDERED: MONTELUKAST 10 MG TAB PO SCH (22:00)
[2019-12-26] MEDS ORDERED: SUMAtriptan SUCCINATE 50 MG TAB PO PRN (22:00)
[2019-12-26] MEDS ORDERED: traZODone HCL 100 MG TAB PO SCH (22:00)
[2019-12-27] MEDS: BACLOFEN 10 MG TAB PO SCH ×2 (00:09→08:46)
[2019-12-27] MEDS: MECLIZINE 25 MG TAB PO SCH ×2 (02:31→08:46)
[2019-12-27] MEDS ORDERED: LEVOTHYROXINE 100 MCG TAB PO SCH (06:30)
[2019-12-27] MEDS ORDERED: PANTOPRAZOLE 40 MG TABLET PO SCH (07:30)
[2019-12-27] MEDS ORDERED: DOBUTamine DRIP for NUC MED 500 MG in DEXTROSE/WATER 1 250ML.BAG IV ONE (08:02)
[2019-12-27 08:32] VITALS: BP 112/73; PULSE 50; RESP 16; TEMP 98.2
--- NOTE | 2019-12-27 08:35 | P.CRDCN ---
History of Present Illness History of present illness: HISTORY OF PRESENTING ILLNESS This is a pleasant 59-year-old female past medical history significant for COPD, hypertension, dyslipidemia, hypothyroidism and obstructive sleep apne a. She quit smoking tobacco in 2018 currently smokes marijuana on a regular basis. She follows in the office with Dr. Vazquez in [place]. We have been asked to see in consultation for chest pain. She states yesterday while she was making her bed she started feeling a tight sharp discomfort in the midsternal region. She also was feeling cramping in her left foot at the same time. The discomfort was not related to deep inspiration or movement of her torso. She had associated nausea and shortness of breath. She also felt a full sensation in her throat. Her symptoms were intermittent and not associated with activity and not relieved by rest. They were off-and-on for most of the morning. On arrival to the emergency department she was continuing to have ongoing chest discomfort. She denies associated palpitations, dizziness or vomiting. She underwent a stress test most recently in 2018 with a Lexiscan stress test that was negative for reversible cardiac ischemia. Most recent echocardiogram obtained in 2018 revealed preserved LV systolic function with ejection fraction 55%. Most recently with outpatient event monitor with her primary center medical specialist revealing bradycardia. Prompted him to discontinue the Lopressor and initiate amlodipine 2.[address] its [address]. DIAGNOSTICS EKG reveals sinus mechanism with no acute ST or T wave abnormalities suggestive of ischemia. Telemetry tracings indicate sinus bradycardia. Chest xray due to for an acute cardiopulmonary process. CT of the chest is negative for pulmonary embolism with evidence of groundglass opacity in the right lower lobe. Laboratory reviewed, CBC unremarkable, d-dimer 0.6, sodium 141, potassium 4.3, creatinine 1.01, magnesium 2.1, cardiac enzymes negative 3. Current cardiac medications include amlodipine 2.5 mg daily and atorvastatin 10 mg at that time. REVIEW OF SYSTEMS At the time of my exam: CONSTITUTIONAL: Denies fever or chills. CARDIOVASCULAR: Denies chest pain, shortness of breath, orthopnea, PND or palpitations. RESPIRATORY: Denies cough. GASTROINTESTINAL: Denies abdominal pain, diarrhea, constipation, nausea or vomiting. MUSCULOSKELETAL: Denies myalgias. NEUROLOGIC: Denies numbness, tingling or weakness. ENDOCRINE: Denies fatigue, weight change, polydipsia or polyurina. GENITOURINARY: Denies burning, hematuria or urgency with micturation. HEMATOLOGIC: Denies history of anemia or bleeding. PHYSICAL EXAMINATION Blood pressure 112/73 heart rate 50 afebrile and maintaining oxygen saturation on room air. CONSTITUTIONAL: No apparent distress. HEENT: Head is normocephalic. Pupils are equal, round. Sclerae anicteric. Mucous membranes of the mouth are moist. No JVD. No carotid bruit. CHEST EXAMINATION: Lungs are clear to auscultation. No chest wall tenderness is noted on palpation or with deep breathing. HEART EXAMINATION: Regular rate and rhythm. S1, S2 heard. No murmurs, gallops or rub. ABDOMEN: Soft, nontender. Positive bowel sounds. EXTREMITIES: 2+ peripheral pulses, no lower extremity edema and no calf tenderness. NEUROLOGIC EXAMINATION: Patient is awake, alert and oriented x3. ASSESSMENT Chest pain, atypical for angina. An acute coronary event is from ruled out. Hypertension Dyslipidemia COPD Hypothyroidism Obstructive sleep apnea Former nicotine dependence PLAN An acute coronary event has been ruled out. Check lipid profile and TSH. Obtain dobutamine stress echocardiogram to assess for stress-induced cardiac ischemia. If stress test is normal she is stable for discharge from a cardiac perspective. Recommend close follow-up with her primary center medical specialist. Thank you kindly for this consultation. Nurse Practitioner note has been reviewed, I agree with a documented findings and plan of care. Patient was seen and examined. Past Medical History Past Medical History: Cancer, COPD, GERD/Reflux, Hyperlipidemia, Hypertension, Sleep Apnea/CPAP/BIPAP, Thyroid Disorder Additional Past Medical History / Comment(s): migraines, insomnia, C-pap machine, severe vertigo- uses cane.,states low heart rate., hx colon polyp., chronic back pain, aortic aneurysm 4.5 cm , Breast cancer (surgery 06/2019), Sleeve Gastrectomy (04/2018)., internal hemorrhoids. History of Any Multi-Drug Resistant Organisms: None Reported Past Surgical History: Bariatric Surgery, Bladder Surgery, Breast Surgery, Orthopedic Surgery Additional Past Surgical History / Comment(s): eye surgery, left thumb surgery, EGD, Double Mastectomy (06/2019). sleeve gastrectomy (04-20-18) Past Anesthesia/Blood Transfusion Reactions: No Reported Reaction, Motion Sickness Past Psychological History: Depression, PTSD Smoking Status: Former smoker Past Alcohol Use History: Occasional Additional Past Alcohol Use History / Comment(s): Quit smoking 2018., smoked from age 8, smoked 1/2 to 1 ppd. Past Drug Use History: Marijuana Additional Drug Use History / Comment(s): current marijuana use - Past Family History Mother Family Medical History: Cancer Additional Family Medical History / Comment(s): mother due to lung cancer. Patient has 2 aunts had breast cancer. Patient does not have any children. Father Family Medical History: Coronary Artery Disease (CAD), Diabetes Mellitus Additional Family Medical History / Comment(s): Father is alive with history of CAD, DM and is on home O2. She does not know any further details. Sister(s) Additional Family Medical History / Comment(s): ETOH the patient has 2 sisters and one half-sister with no major medical problems. Brother(s) Family Medical History: Coronary Artery Disease (CAD) Additional Family Medical History / Comment(s): Patient has one brother with history of coronary artery disease status post CABG in heart failure. Medications and Allergies Home Medications Medication Instructions Recorded Confirmed Type traZODone HCL [Desyrel] 100 mg PO HS 11/21/14 12/26/19 History Montelukast [Singulair] 10 mg PO HS 12/27/15 12/26/19 History Atorvastatin [Lipitor] 10 mg PO HS 11/24/17 12/26/19 History Levothyroxine Sodium [Synthroid] 200 mcg PO DAILY 11/24/17 12/26/19 History Baclofen [Lioresal] 10 mg PO TID 05/25/18 12/26/19 History Omeprazole [PriLOSEC] 20 mg PO AC-BID 06/22/18 12/26/19 History SUMAtriptan SUCCINATE [Imitrex] 100 mg PO BID PRN 06/22/18 12/26/19 History Varenicline [Chantix Continuing 1 mg PO DAILY 06/22/18 12/26/19 History Pack] Meclizine [Antivert] 25 mg PO TID 02/05/19 12/26/19 History Vitamin C/Biotin [Hair, Skin and 1 tab PO BID 03/04/19 12/26/19 History Nails] Anastrozole [Arimidex] 1 mg PO DAILY 10/22/19 12/26/19 History Cholecalciferol [Vitamin D3 (25 2,000 unit PO DAILY 10/22/19 12/26/19 History Mcg = 1000 Iu)] Cyanocobalamin [Vitamin B-12] 1,500 mcg PO DAILY 10/22/19 12/26/19 History Ferrous Sulfate [Feosol] 325 mg PO DAILY 10/22/19 12/26/19 History L.acidoph,Paracasei, B.lactis 1 each PO DAILY 10/22/19 12/26/19 History [Probiotic] Terazosin [Hytrin] 1 mg PO HS 10/22/19 12/26/19 History diphenhydrAMINE [Benadryl] 25 mg PO BID PRN 10/22/19 12/26/19 History Multivit with Calcium,Iron,Min 1 each PO DAILY 11/18/19 12/26/19 History [Women's Multivitamin] amLODIPine [Norvasc] 2.5 mg PO DAILY 11/18/19 12/26/19 History Calcium Citrate 1,000 mg PO BID 12/26/19 12/26/19 History Allergies Allergy/AdvReac Type Severity Reaction Status Date / Time latex Allergy Rash/Hives Verified 12/26/19 14:26 nickel Allergy Rash/Hives Verified 12/26/19 14:26 paper tape Allergy Rash/Hives Uncoded 12/26/19 11:31 Physical Exam Vitals: Vital Signs Temp Pulse Pulse Resp BP BP Pulse Ox 12/27/19 04:00 97.8 F 68 15 106/71 94 L 12/27/19 00:00 97.7 F 67 16 110/82 95 12/26/19 23:30 67 16 12/26/19 23:20 50 L 16 12/26/19 20:00 97.9 F 67 16 113/78 95 12/26/19 16:00 55 L 16 12/26/19 15:36 98.1 F 63 16 120/78 96 12/26/19 14:50 97.8 F 60 16 127/95 96 12/26/19 13:50 59 L 16 138/72 98 12/26/19 11:29 98.0 F 74 20 144/84 94 L Intake and Output 12/26/19 12/27/19 12/27/19 22:59 06:59 14:59 Intake Total 480 Balance 480 Intake: Oral 480 Other: # Voids 1 1 Results 12/26/19 11:46 12/26/19 11:46 Cardiac Enzymes 12/26/19 12/26/19 12/26/19 Range/Units 11:46 11:46 15:19 AST 32 (14-36) U/L Troponin I <0.012 <0.012 (0.000-0.034) ng/mL 12/26/19 Range/Units 18:16 AST (14-36) U/L Troponin I <0.012 (0.000-0.034) ng/mL Coagulation 12/26/19 Range/Units 11:46 PT 9.9 (9.0-12.0) sec APTT 23.8 (22.0-30.0) sec CBC 12/26/19 Range/Units 11:46 WBC 7.4 (3.8-10.6) k/uL RBC 4.87 (3.80-5.40) m/uL Hgb 14.9 (11.4-16.0) gm/dL Hct 46.9 H (34.0-46.0) % Plt Count 218 (150-450) k/uL Comprehensive Metabolic Panel 12/26/19 Range/Units 11:46 Sodium 141 (137-145) mmol/L Potassium 4.3 (3.5-5.1) mmol/L Chloride 104 (98-107) mmol/L Carbon Dioxide 27 (22-30) mmol/L BUN 17 (7-17) mg/dL Creatinine 1.01 (0.52-1.04) mg/dL Glucose 93 (74-99) mg/dL Calcium 10.2 (8.4-10.2) mg/dL AST 32 (14-36) U/L ALT 36 H (4-34) U/L Alkaline Phosphatase 107 (38-126) U/L Total Protein 7.9 (6.3-8.2) g/dL Albumin 5.0 (3.5-5.0) g/dL Current Medications Generic Name Dose Route Start Last Admin Trade Name Freq PRN Reason Stop Dose Admin Acetaminophen 650 mg 12/26/19 14:00 12/27/19 04:08 Tylenol Tab PO 650 mg Q6HR PRN Administration Mild Pain or Fever > 100.5 Amlodipine Besylate 2.5 mg 12/27/19 09:00 Norvasc PO DAILY [facility] Lipase/Protease/Amylase 1 each 12/27/19 09:[address] 5,000 Unit Capsule PO DAILY [facility] Anastrozole 1 mg 12/27/19 09:00 Arimidex PO DAILY [facility] Aspirin 81 mg 12/27/19 09:00 Aspirin PO DAILY [facility] Atorvastatin Calcium 10 mg 12/27/19 21:00 Lipitor PO HS [facility] Baclofen 10 mg 12/26/19 22:00 12/27/19 00:09 Lioresal PO 10 mg TID [facility] Administration Calcium Carbonate/Glycine 1,000 mg 12/27/19 09:00 Tums PO BID [facility] Cholecalciferol 2,000 unit 12/27/19 09:00 Vitamin D3 (25 Mcg = 1000 Iu) PO DAILY [facility] Cyanocobalamin 1,500 mcg 12/27/19 09:00 Vitamin B-12 PO DAILY [facility] Diphenhydramine HCl 25 mg 12/26/19 22:00 Benadryl PO BID PRN Itching Doxazosin Mesylate 1 mg 12/26/19 22:00 12/27/19 02:30 Cardura PO Not Given HS [facility] Ferrous Sulfate 325 mg 12/27/19 09:00 Feosol PO DAILY [facility] Levothyroxine Sodium 200 mcg 12/27/19 06:30 12/27/19 06:25 Synthroid PO 200 mcg DAILY@0630 [facility] Administration Meclizine HCl 25 mg 12/26/19 22:00 12/27/19 02:31 Antivert PO Not Given TID [facility] Montelukast Sodium 10 mg 12/26/19 22:00 12/27/19 00:09 Singulair PO 10 mg HS [facility] Administration Morphine Sulfate 4 mg 12/26/19 14:00 Morphine Sulfate (Inj) IV Q4HR PRN Severe Pain Multivitamins 1 each 12/27/19 09:00 Theragran PO DAILY [facility] Naloxone HCl 0.2 mg 12/26/19 14:00 Narcan IV Q2M PRN Opioid Reversal Pantoprazole Sodium 20 mg 12/27/19 07:30 Protonix PO AC-BID [facility] Ropinirole HCl 0.5 mg 12/26/19 21:00 12/27/19 00:09 Requip PO 0.5 mg HS [facility] Administration Sumatriptan Succinate 100 mg 12/26/19 22:00 Imitrex PO BID PRN pain Trazodone HCl 100 mg 12/26/19 22:00 12/27/19 00:10 Desyrel PO 100 mg HS [facility] Administration Varenicline 1 mg 12/27/19 09:00 Chantix PO DAILY [facility] Intake and Output 12/26/19 12/27/19 12/27/19 22:59 06:59 14:59 Intake Total 480 Balance 480 Intake: Oral 480 Other: # Voids 1 1 12/26/19 11:46 12/26/19 11:46
[2019-12-27] MEDS ORDERED: FERROUS SULFATE 325 MG TAB PO SCH (09:00)
[2019-12-27] MEDS ORDERED: CHOLECALCIFEROL 1,000 UNIT TAB PO SCH (09:00)
[2019-12-27] MEDS ORDERED: NON FORMULARY DRUG (Vitamin C/Biotin [Hair, Skin And Nails] 1 TAB) PO SCH (09:00)
[2019-12-27] MEDS ORDERED: ASPIRIN 325 MG TAB PO SCH (09:00)
[2019-12-27] MEDS ORDERED: ANASTROZOLE 1 MG TAB PO SCH (09:00)
[2019-12-27] MEDS ORDERED: amLODIPine 2.5 MG TAB PO SCH (09:00)
[2019-12-27] MEDS ORDERED: MULTIVITAMINS, THERA 1 EACH TAB PO SCH (09:00)
[2019-12-27] MEDS ORDERED: ASPIRIN 81 MG PO SCH (09:00)
[2019-12-27] MEDS ORDERED: CYANOCOBALAMIN 500 MCG TAB PO SCH (09:00)
[2019-12-27] MEDS ORDERED: LIPASE 5,000/PROTEASE 17,000/AMYLASE 24,000 PO SCH (09:00)
[2019-12-27] MEDS ORDERED: VARENICLINE 1 MG TAB PO SCH (09:00)
[2019-12-27] MEDS ORDERED: CALCIUM CARBONATE 500 MG CHEWABLE PO SCH (09:00)
--- NOTE | 2019-12-27 11:20 | ECHOF ---
Referral Reason:CP MEASUREMENTS -------- HEIGHT: 167.6 cm WEIGHT: 79.8 kg BP: 106/71 RVIDd: 3.2 cm (< 3.3) IVSd: 1.2 cm (0.6 - 1.1) LVIDd: 4.5 cm (3.9 - 5.3) LVPWd: 1.1 cm (0.6 - 1.1) IVSs: 1.5 cm LVIDs: 3.2 cm LVPWs: 1.6 cm LA Diam: 3.5 cm (2.7 - 3.8) LAESV Index (A-L): 26.51 ml/m Ao Diam: 3.3 cm (2.0 - 3.7) AV Cusp: 2.0 cm (1.5 - 2.6) MV EXCURSION: 13.838 mm (> 18.000) MV EF SLOPE: 84 mm/s (70 - 150) EPSS: 0.5 cm MV E Justyn: 1.05 m/s MV DecT: 255 ms MV A Justyn: 0.88 m/s MV E/A Ratio: 1.19 RAP: 5.00 mmHg RVSP: 26.94 mmHg FINDINGS -------- Sinus rhythm. Resting bradycardia (HR<60bpm). This was a technically adequate study. The left ventricular size is normal. There is borderline concentric left ventricular hypertrophy. Overall left ventricular systolic function is normal with, an EF between 55 - 60 %. The right ventricle is normal in size. Normal LA size by volume 22+/-6 ml/m2. The right atrial size is normal. Interatrial and interventricular septum intact. The aortic valve is trileaflet, and appears structurally normal. No aortic stenosis or regurgitation. The mitral valve is normal. Mild mitral regurgitation is present. Mild tricuspid regurgitation present. Right ventricular systolic pressure is normal at < 35 mmHg. There is no pulmonic regurgitation present. The aortic root size is normal. Normal inferior vena cava with normal inspiratory collapse consistent with estimated right atrial pre ssure of 5 mmHg. There is no pericardial effusion. CONCLUSIONS -------- 1. There is borderline concentric left ventricular hypertrophy. 2. Overall left ventricular systolic function is normal with, an EF between 55 - 60 %. 3. Normal LA size by volume 22+/-6 ml/m2. 4. The aortic valve is trileaflet, and appears structurally normal. No aortic stenosis or regurgitati on. 5. Mild mitral regurgitation is present. 6. Mild tricuspid regurgitation present. 7. There is no pericardial effusion. [employer]PER[employer]OR: ILSA Jenkins
--- NOTE | 2019-12-27 11:30 | P.HPIM ---
History of Present Illness H&P Date: 12/27/19 Chief Complaint: Chest pain HISTORY AND PHYSICAL AND DISCHARGE SUMMARY: History of Present Illness This is a 59-year-old female patient of Dr. Hugo Preston and her registered public health nurse is Dr. Vazquez with past medical history of COPD, hypertension, hyperlipidemia, hypothyroidism and obstructive sleep apnea on CPAP, chronic vertigo, hypothyroidism, migraine headaches, chronic back pain, aortic aneurysm., Remote history of tobacco use quit in 2018, breast cancer status post bilateral mastectomy in June of this year. She also has history of bariatric surgery with gastric sleeve in [address] Coley. Patient states that she was making the bed and developed midsternal chest pain that radiated to her throat that was a stabbing and tightness-type pain. She finished making the bed and went downstairs sat down and was taking some deep breaths but the pain did not resolve. She denied having any nausea or vomiting, no palpitations. She has chronic lightheadedness with vertigo. The pain subsided somewhat in about 1-1/2 hours after she arrived to the emergency center. The stabbing-type pain was resolved but she still had a tightness sensation. She states she vomited once. She denies any medication that improved her pain. She has been able to climb stairs and has had no chest pain prior to this episode. Echocardiogram in November 2017 revealed EF of 55-60%, moderate concentric left ventricular hypertrophy. She also had a Lexiscan stress test done in the cardiology office around that same time which was negative. Patient difficulty with restless leg syndrome last evening and was started on Requip. Patient will be provided a prescription and she'll need follow-up with Dr. Preston for refills. Patient came into [facility]. Chest x-ray was normal. EKG was a normal sinus rhythm with no acute ST changes. Vital signs were stable. CT of the chest was negative for pulmonary embolism with evidence of groundglass opacity in the right lower lobe. CBC unremarkable. D-dimer 0.6. Sodium 141, potassium 4.3, creatinine 1.01, magnesium 2.1, troponins negative on 3 draws. Triglycerides 68, cholesterol 184, LDL 69, HDL 101, TSH 1.370. Patient has been placed in the observation unit and seen by cardiology. Per cardiology, patient had recent outpatient event monitor revealing bradycardia and Lopressor was discontinued and patient started on amlodipine 2.5 mg daily. Echocardiogram reveals EF 55-60%, mild mitral regurgitation, mild tricuspid regurgitation. Dobutamine stress test reveals normal. No stress-induced ischemia. Patient was cleared by cardiology for discharge. Patient will be discharged home today in stable condition. Review of Systems Constitutional: No fever, no chills, no night sweats. No weight change. No weakness, fatigue or lethargy. No daytime sleepiness. EENT: No headache. No blurred vision or double vision, no loss of vision. No loss of Hearing, no ringing in the ears, reports chronic dizziness. No nasal drainage or congestion. No epistaxis. No sore throat. Lungs: No shortness of breath, cough, no sputum production. No wheezing. Cardiovascular: Reports chest pain, no lower extremity edema. No palpitations. No paroxysmal nocturnal dyspnea. No orthopnea. No lightheadedness or dizziness. No syncopal episodes. Abdominal: No abdominal pain. No nausea, vomiting. No diarrhea. No constipation. No bloody or tarry stools.. No loss of appetite. Genitourinary: No dysuria, increased frequency, urgency. No urinary retention. Musculoskeletal: No myalgias. No muscle weakness, no gait dysfunction, no frequent falls. No back pain. No neck pain. Integumentary: No wounds, no lesions. No rash or pruritus. No unusual bruising. No change in hair or nails. Neurologic: No aphasia. No facial droop. No change in mentation. No head injury. No headache. No paralysis. No paresthesia. Psychiatric: No depression. No anxiety. No mood swings. Endocrine: No abnormal blood sugars. No weight change. No excessive sweating or thirst. No cold intolerance. Physical Examination Gen: This is a morbidly obese 59-year-old female. She is sitting up in bed and appears to be comfortable. HEENT: Head is atraumatic, normocephalic. Pupils equal, round. Sclerae is anicteric. NECK: Supple. No JVD. No lymphadenopathy. No thyromegaly. LUNGS: Clear to auscultation. No wheezes. No intercostal retractions. respiratory effort with minimal movement in bed. HEART: Regular rate and rhythm. No murmur. No chest wall tenderness. ABDOMEN: Soft. Bowel sounds are present. No masses. No tenderness. EXTREMITIES: Trace bilat pedal edema. No calf tenderness. NEUROLOGICAL: Patient is awake, alert and oriented x3. Cranial nerves 2 through 12 are grossly intact. Assessment and Plan 1. Chest pain with negative troponins. Acute coronary syndrome ruled out. 2. Hypertension. 3. Hyperlipidemia. 4. COPD. 5. Hypothyroidism next field obstructive sleep apnea. 6. Chronic vertigo. 7. Hypothyroidism. 8. Aortic aneurysm. 9. Breast cancer status post bilateral mastectomy. 10. Remote history of tobacco use and dependence. 11. Restless leg syndrome 12. COVID-19 infection not present. Patient placed as an observation status. Discharge plan: Home Impression and plan of care have been directed as dictated by the signing physician. Shanthi Potter nurse practitioner acting as scribe for signing physician. Past Medical History Past Medical History: Cancer, COPD, GERD/Reflux, Hyperlipidemia, Hypertension, Sleep Apnea/CPAP/BIPAP, Thyroid Disorder Additional Past Medical History / Comment(s): migraines, insomnia, C-pap machine, severe vertigo- uses cane.,states low heart rate., hx colon polyp., chronic back pain, aortic aneurysm 4.5 cm , Breast cancer (surgery 06/2019), Sleeve Gastrectomy (04/2018)., internal hemorrhoids. History of Any Multi-Drug Resistant Organisms: None Reported Past Surgical History: Bariatric Surgery, Bladder Surgery, Breast Surgery, Orthopedic Surgery Additional Past Surgical History / Comment(s): eye surgery, left thumb surgery, EGD, Double Mastectomy (06/2019). sleeve gastrectomy (04-20-18) Past Anesthesia/Blood Transfusion Reactions: No Reported Reaction, Motion Sickness Past Psychological History: Depression, PTSD Smoking Status: Former smoker Past Alcohol Use History: Occasional Additional Past Alcohol Use History / Comment(s): Quit smoking 2017., smoked from age 8, smoked 1/2 to 1 ppd. She has history of alcohol abuse in her 20s and 30s but drink alcohol rarely at this point. She uses marijuana regularly. 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 Past Drug Use History: Marijuana Additional Drug Use History / Comment(s): current marijuana use - Past Family History Mother Family Medical History: Cancer Additional Family Medical History / Comment(s): mother at age 54 due to lung cancer. Patient has 2 aunts had breast cancer. Patient does not have any children. Father Family Medical History: Coronary Artery Disease (CAD), Diabetes Mellitus Additional Family Medical History / Comment(s): Father is alive with history of CAD, DM and is on home O2. She does not know any further details. Sister(s) Additional Family Medical History / Comment(s): ETOH the patient has 2 sisters and one half-sister with no major medical problems. Brother(s) Family Medical History: Coronary Artery Disease (CAD) Additional Family Medical History / Comment(s): Patient has one brother with history of coronary artery disease status post CABG in heart failure. Medications and Allergies Home Medications Medication Instructions Recorded Confirmed Type traZODone HCL [Desyrel] 100 mg PO HS 11/21/14 12/26/19 History Montelukast [Singulair] 10 mg PO HS 12/27/15 12/26/19 History Atorvastatin [Lipitor] 10 mg PO HS 11/24/17 12/26/19 History Levothyroxine Sodium [Synthroid] 200 mcg PO DAILY 11/24/17 12/26/19 History Baclofen [Lioresal] 10 mg PO TID 05/25/18 12/26/19 History Omeprazole [PriLOSEC] 20 mg PO AC-BID 06/22/18 12/26/19 History SUMAtriptan SUCCINATE [Imitrex] 100 mg PO BID PRN 06/22/18 12/26/19 History Varenicline [Chantix Continuing 1 mg PO DAILY 06/22/18 12/26/19 History Pack] Meclizine [Antivert] 25 mg PO TID 02/05/19 12/26/19 History Vitamin C/Biotin [Hair, Skin and 1 tab PO BID 03/04/19 12/26/19 History Nails] Anastrozole [Arimidex] 1 mg PO DAILY 10/22/19 12/26/19 History Cholecalciferol [Vitamin D3 (25 2,000 unit PO DAILY 10/22/19 12/26/19 History Mcg = 1000 Iu)] Cyanocobalamin [Vitamin B-12] 1,500 mcg PO DAILY 10/22/19 12/26/19 History Ferrous Sulfate [Iron (65 MG 325 mg PO DAILY 10/22/19 12/26/19 History Elemental)] L.acidoph,Paracasei, B.lactis 1 each PO DAILY 10/22/19 12/26/19 History [Probiotic] Terazosin [Hytrin] 1 mg PO HS 10/22/19 12/26/19 History diphenhydrAMINE [Benadryl] 25 mg PO BID PRN 10/22/19 12/26/19 History Multivit with Calcium,Iron,Min 1 each PO DAILY 11/18/19 12/26/19 History [Women's Multivitamin] amLODIPine [Norvasc] 2.5 mg PO DAILY 11/18/19 12/26/19 History Calcium Citrate 1,000 mg PO BID 12/26/19 12/26/19 History Aspirin 81 mg PO DAILY chew 12/27/19 Rx rOPINIRole HCL [Requip] 0.5 mg PO HS #30 tab 12/27/19 Rx Allergies Allergy/AdvReac Type Severity Reaction Status Date / Time latex Allergy Rash/Hives Verified 12/26/19 14:26 nickel Allergy Rash/Hives Verified 12/26/19 14:26 paper tape Allergy Rash/Hives Uncoded 12/26/19 11:31 Physical Exam Vitals: Vital Signs Temp Pulse Pulse Resp BP BP Pulse Ox 12/27/19 04:00 97.8 F 68 15 106/71 94 L 12/27/19 00:00 97.7 F 67 16 110/82 95 12/26/19 23:30 67 16 12/26/19 23:20 50 L 16 12/26/19 20:00 97.9 F 67 16 113/78 95 12/26/19 16:00 55 L 16 12/26/19 15:36 98.1 F 63 16 120/78 96 12/26/19 14:50 97.8 F 60 16 127/95 96 12/26/19 13:50 59 L 16 138/72 98 12/26/19 11:29 98.0 F 74 20 144/84 94 L Intake and Output 12/26/19 12/27/19 12/27/19 22:59 06:59 14:59 Intake Total 480 Balance 480 Intake: Oral 480 Other: # Voids 1 1 Results CBC & Chem 7: 12/26/19 11:46 12/26/19 11:46 Labs: Abnormal Lab Results - Last 24 Hours (Table) 12/26/19 12/26/19 12/26/19 Range/Units 11:46 11:46 11:46 Hct 46.9 H (34.0-46.0) % D-Dimer 0.60 H (<0.60) mg/L FEU ALT 36 H (4-34) U/L Thrombosis Risk Factor Assmnt - Choose All That Apply Each Factor Represents 1 point: Age 41-60 years Thrombosis Risk Factor Assessment Total Risk Factor Score: 1 Thrombosis Risk Factor Assessment Level: Low Risk
--- NOTE | 2019-12-27 13:54 | ECHOS ---
STRESS ECHOCARDIOGRAM LUMASON: l INDICATIONS: Chest pain, shortness of breath MEDICATIONS: BASELINE HEART RATE: 66 BASELINE BLOOD PRESSURE: 125/63 MAXIMUM HEART RATE: 148 MAXIMUM BLOOD PRESSURE: 128/74 85% MPHR: 137 100% MPHR: 161 METS: MAXIMUM STAGE REACHED: 4 TOTAL EXERCISE TIME: 13:30 CLINICAL INFORMATION: Baseline rhythm is sinus mechanism, rate of 66, borderline right axis deviation, minor nonspecific ST-T wave changes. Baseline blood pressure 125/63 mmHg. Patient received an infusion of dobutamine per protocol, peak rate 148 beats per minute which is equal to 85% maximum predicted heart rate. Peak blood pressure 128/74 mmHg. Electrocardiograph monitoring revealed no evidence of diagnostic ischemic ST deviation. FINDINGS: Baseline echocardiogram revealed normal wall motion. At peak infusion, there was normal wall thickening without any hypokinesis or dyskinesis. CONCLUSION: 1. Normal electrocardiograph response to dobutamine infusion. 2. Normal stress echocardiogram with no evidence of stress-induced ischemia. MMODL / IJN: [id number] /
[2019-12-27] MEDS ORDERED: ATORVASTATIN 10 MG TAB PO SCH (21:00)
== END 2019-12-27 14:49 | disposition home or self-care (01) ==
LOC: EC 11:28 → 1SOBS 14:00
PROVIDERS: ADMIT Internal Medicine Geriatric Medicine; ATTEND Internal Medicine Geriatric Medicine
DX: R07.89 Other chest pain (principal); E03.9 Hypothyroidism, unspecified; E78.00 Pure hypercholesterolemia, unspecified; E78.5 Hyperlipidemia, unspecified; F12.90 Cannabis use, unspecified, uncomplicated; F32.9 Major depressive disorder, single episode, unspecified; F43.10 Post-traumatic stress disorder, unspecified; G25.81 Restless legs syndrome; G47.33 Obstructive sleep apnea (adult) (pediatric); I11.9 Hypertensive heart disease without heart failure; I71.9 Aortic aneurysm of unspecified site, without rupture; J44.9 Chronic obstructive pulmonary disease, unspecified; K21.9 Gastro-esophageal reflux disease without esophagitis; Z79.82 Long term (current) use of aspirin; Z79.890 Hormone replacement therapy; Z79.899 Other long term (current) drug therapy; Z80.1 Family history of malignant neoplasm of trachea, bronchus and lung; Z80.3 Family history of malignant neoplasm of breast; Z82.49 Family history of ischemic heart disease and other diseases of the circulatory system; Z83.3 Family history of diabetes mellitus; Z85.3 Personal history of malignant neoplasm of breast; Z87.19 Personal history of other diseases of the digestive system; Z87.891 Personal history of nicotine dependence; Z90.13 Acquired absence of bilateral breasts and nipples; Z98.84 Bariatric surgery status; Z88.8 Allergy status to other drugs, medicaments and biological substances; Z91.040 Latex allergy status; Z91.048 Other nonmedicinal substance allergy status; R11.0 Nausea; R06.02 Shortness of breath; Z03.818 Encounter for observation for suspected exposure to other biological agents ruled out
CPT/HCPCS: 93005 ×2; 99285; 36415; 93306; 93351; 85379; 80061; 80053; 84443; 83735; 84484; 85025; 85610; 85730; 71046; 71275; G0378 ×2; U0003; J1250; S0170; Q9950; Q9967

== ENCOUNTER 2020-01-02 18:33 | Emergency (ER) | payer MEDICARE, OTHER ==
[2020-01-02 18:49] VITALS: RESP 18
[2020-01-02] MEDS ORDERED: IBUPROFEN 600 MG TAB PO STA (19:10)
[2020-01-02] MEDS ORDERED: ACETAMINOPHEN TAB 500 MG TAB PO STA (19:10)
--- NOTE | 2020-01-02 19:20 | ED ---
Lower Extremity Injury HPI - General Chief Complaint: Extremity Injury, Lower Stated Complaint: Toe pain Time Seen by Provider: 01/02/20 19:03 Source: patient Mode of arrival: ambulatory Limitations: no limitations - History of Present Illness Initial Comments: 59-year-old female patient presents to the emergency department today for evaluation of left little toe pain. Patient states approximately 2 hours ago she was at the grocery store [employer] he kicked a shopping cart. Patient states since then the area has become swollen and bruised. States she is having significant pain to the area. She has not taken any medications for her pain. He denies any other injuries. Patient denies any headache, neck pain, back pain, chest pain, shortness of breath, dizziness, weakness, abdominal pain, nausea, vomiting, or difficulties with bowel movements or urination. - Related Data Home Medications Medication Instructions Recorded Confirmed traZODone HCL [Desyrel] 100 mg PO HS 11/21/14 12/26/19 Montelukast [Singulair] 10 mg PO HS 12/27/15 12/26/19 Atorvastatin [Lipitor] 10 mg PO HS 11/24/17 12/26/19 Levothyroxine Sodium [Synthroid] 200 mcg PO DAILY 11/24/17 12/26/19 Baclofen [Lioresal] 10 mg PO TID 05/25/18 12/26/19 Omeprazole [PriLOSEC] 20 mg PO AC-BID 06/22/18 12/26/19 SUMAtriptan SUCCINATE [Imitrex] 100 mg PO BID PRN 06/22/18 12/26/19 Varenicline [Chantix Continuing 1 mg PO DAILY 06/22/18 12/26/19 Pack] Meclizine [Antivert] 25 mg PO TID 02/05/19 12/26/19 Vitamin C/Biotin [Hair, Skin and 1 tab PO BID 03/04/19 12/26/19 Nails] Anastrozole [Arimidex] 1 mg PO DAILY 10/22/19 12/26/19 Cholecalciferol [Vitamin D3 (25 2,000 unit PO DAILY 10/22/19 12/26/19 Mcg = 1000 Iu)] Cyanocobalamin [Vitamin B-12] 1,500 mcg PO DAILY 10/22/19 12/26/19 Ferrous Sulfate [Iron (65 MG 325 mg PO DAILY 10/22/19 12/26/19 Elemental)] L.acidoph,Paracasei, B.lactis 1 each PO DAILY 10/22/19 12/26/19 [Probiotic] Terazosin [Hytrin] 1 mg PO HS 10/22/19 12/26/19 diphenhydrAMINE [Benadryl] 25 mg PO BID PRN 10/22/19 12/26/19 Multivit with Calcium,Iron,Min 1 each PO DAILY 11/18/19 12/26/19 [Women's Multivitamin] amLODIPine [Norvasc] 2.5 mg PO DAILY 11/18/19 12/26/19 Calcium Citrate 1,000 mg PO BID 12/26/19 12/26/19 Previous Rx's Medication Instructions Recorded Aspirin 81 mg PO DAILY chew 12/27/19 rOPINIRole HCL [Requip] 0.5 mg PO HS #30 tab 12/27/19 Allergies Allergy/AdvReac Type Severity Reaction Status Date / Time latex Allergy Rash/Hives Verified 01/02/20 18:50 nickel Allergy Rash/Hives Verified 01/02/20 18:50 paper tape Allergy Rash/Hives Uncoded 01/02/20 18:50 Review of Systems ROS Statement: Those systems with pertinent positive or pertinent negative responses have been documented in the HPI. ROS Other: All systems not noted in ROS Statement are negative. Past Medical History Past Medical History: Cancer, COPD, GERD/Reflux, Hyperlipidemia, Hypertension, S leep Apnea/CPAP/BIPAP, Thyroid Disorder Additional Past Medical History / Comment(s): migraines, insomnia, C-pap machine, severe vertigo- uses cane.,states low heart rate., hx colon polyp., chronic back pain, aortic aneurysm 4.5 cm , Breast cancer (surgery 06/2019), Sleeve Gastrectomy (04/2018)., internal hemorrhoids. History of Any Multi-Drug Resistant Organisms: None Reported Past Surgical History: Bariatric Surgery, Bladder Surgery, Breast Surgery, Orthopedic Surgery Additional Past Surgical History / Comment(s): eye surgery, left thumb surgery, EGD, Double Mastectomy (06/2019). sleeve gastrectomy (04-20-18) Past Anesthesia/Blood Transfusion Reactions: No Reported Reaction, Motion Sickness Past Psychological History: Depression, PTSD Past Alcohol Use History: Occasional Past Drug Use History: Marijuana - Past Family History Mother Family Medical History: Cancer Additional Family Medical History / Comment(s): mother at age 54 due to lung cancer. Patient has 2 aunts had breast cancer. Patient does not have any children. Father Family Medical History: Coronary Artery Disease (CAD), Diabetes Mellitus Additional Family Medical History / Comment(s): Father is alive with history of CAD, DM and is on home O2. She does not know any further details. Sister(s) Additional Family Medical History / Comment(s): ETOH the patient has 2 sisters and one half-sister with no major medical problems. Brother(s) Family Medical History: Coronary Artery Disease (CAD) Additional Family Medical History / Comment(s): Patient has one brother with history of coronary artery disease status post CABG in heart failure. General Exam Limitations: no limitations General appearance: alert, in no apparent distress, other (This is a well- developed, well-nourished adult female patient in no acute distress. Vital signs upon presentation are temperature 97.3F, pulse 65, respirations 18, blood pressure 134/86, pulse ox 98% on room air.) ENT exam: Present: normal exam, normal oropharynx, mucous membranes moist Respiratory exam: Present: normal lung sounds bilaterally. Absent: respiratory distress, wheezes, rales, rhonchi, stridor Cardiovascular Exam: Present: regular rate, normal rhythm, normal heart sounds. Absent: systolic murmur, diastolic murmur, rubs, gallop, clicks Extremities exam: Present: full ROM, tenderness (Left fifth toe), normal capillary refill, other (There is left fifth toe ecchymosis and swelling. There does appear to be mild deformity. Skin is otherwise pink, warm, dry. Cap refills less than 3 seconds. Pedal pulses 2+ and equal bilaterally.). Absent: normal inspection, pedal edema, joint swelling, calf tenderness Neurological exam: Present: alert, oriented X3, CN II-XII intact Psychiatric exam: Present: normal affect, normal mood Skin exam: Present: warm, dry, intact, normal color. Absent: rash Course Vital Signs 01/02/20 18:47 Temperature 97.3 F L Pulse Rate 65 Respiratory 18 Rate Blood Pressure 134/86 O2 Sat by Pulse 98 Oximetry Medical Decision Making - Medical Decision Making 59-year-old female patient presented to the emergency department today for evaluation of left fifth toe pain after hitting it on a shopping cart. Physical examination did reveal soft tissue swelling and ecchymosis over the left fifth toe. There also appeared to be some angulation ordered the median of the foot. X-ray was obtained and showed an bony irregularity consistent with nondisplaced fracture. Given appearance I did perform direct manipulation to reduce possible subluxation. There was improvement of angulation. Patient tolerated this well. She was given a postop shoe for comfort and support. She is instructed take Tylenol Motrin, rest, ice, elevate. She is instructed to follow-up with her primary care physician for recheck in 1-2 days. Return parameters were discussed in detail. She verbalizes understanding and agrees with this plan. - Radiology Data Radiology results: report reviewed, image reviewed 3 views to the left fifth toe are obtained. Report reviewed in its entirety. Impression by Dr. Taylor shows subtle bony irregularity of the fifth distal phalanx on AP view. Unable to exclude a subtle nondisplaced fracture. Disposition Clinical Impression: Fracture of fifth toe, left, closed Narrative: Distal phalanx Disposition: HOME SELF-CARE Condition: Good Instructions (If sedation given, give patient instructions): Toe Fracture (ED) Additional Instructions: Rest, ice, elevate the toe. Take Tylenol Motrin for pain control. Follow up with your primary care physician for recheck in 1-2 days. Return to the emergency department immediately for any new, worsening, or concerning symptoms. Is patient prescribed a controlled substance at d/c from ED?: No Referrals: Hugo Preston MD [Primary Care Provider] - 1-2 days Time of Disposition: 20:13
--- NOTE | 2020-01-02 19:56 | XR ---
EXAMINATION TYPE: XR toes LT DATE OF EXAM: 01/02/2020 COMPARISON: NONE HISTORY: 59-year-old female little toe injury, pain and bruising TECHNIQUE: 3 views coned down left fifth toe FINDINGS: There is some bony irregularity at the level of the fifth distal phalanx on the AP view not well demo nstrated on the oblique or lateral views. No other acute fracture or dislocation is seen. IMPRESSION: Subtle bony irregularity of the fifth distal phalanx on the AP view. Unable to exclude a subtle nondi splaced fracture.
[2020-01-02] MEDS ORDERED: MORPHINE SULFATE 4 MG/ML SYRINGE IM STA (20:19)
[2020-01-02 20:36] VITALS: BP 133/83; PULSE 59; TEMP 98
== END 2020-01-02 20:37 | disposition home or self-care (01) ==
LOC: EC 18:33
DX: S92.532A Displaced fracture of distal phalanx of left lesser toe(s), initial encounter for closed fracture (principal); K21.9 Gastro-esophageal reflux disease without esophagitis; I10 Essential (primary) hypertension; E78.5 Hyperlipidemia, unspecified; J44.9 Chronic obstructive pulmonary disease, unspecified; F32.9 Major depressive disorder, single episode, unspecified; G47.30 Sleep apnea, unspecified; E07.9 Disorder of thyroid, unspecified; Z79.890 Hormone replacement therapy; Z79.51 Long term (current) use of inhaled steroids; Z79.899 Other long term (current) drug therapy; Z91.040 Latex allergy status; Z91.048 Other nonmedicinal substance allergy status; Z98.84 Bariatric surgery status; Z99.89 Dependence on other enabling machines and devices; Z85.3 Personal history of malignant neoplasm of breast; Z90.13 Acquired absence of bilateral breasts and nipples; W22.8XXA Striking against or struck by other objects, initial encounter; Y92.512 Supermarket, store or market as the place of occurrence of the external cause
CPT/HCPCS: 73660; 99283; 28515; 96372; J2270

== ENCOUNTER → 2020-06-06 | Outpatient (CLI) | payer MEDICARE, OTHER | END | disposition home or self-care (01) | LOC: LABWHC1 11:45 | PROVIDERS: ATTEND Family Medicine | DX: U07.1 COVID-19 (principal) | CPT/HCPCS: U0003; C9803 ==

== ENCOUNTER 2020-07-10 06:14 | Observation (INO) | payer MEDICARE, OTHER ==
[2020-06-30 08:46] VITALS: BMI 27.1
[~2020-07-10 06:14] MED LIST changes: +ACETAMINOPHEN TAB 500 MG TAB PO PRN; +DEXAMETHASONE SOD PHOSPHATE 4 MG/ML 1 ML VIAL IV ONE; +HEPARIN SODIUM,PORCINE 5,000 UNIT/ML 1 ML VIAL SQ PRN; -LACTATED RINGERS 1,000 ML IV SCH; -LIDOCAINE 1% (10MG/ML) FOR IV START INTRADERMA ONE; +MIDAZOLAM 2 MG/2 ML VIAL IV PRN; +ONDANSETRON 4 MG/2 ML VIAL IVP ONE; -PROPOFOL 10 MG/ML 20 ML VIAL IV ONE; +SCOPOLAMINE 1.5MG/72HR PATCH TRANSDERM ONE
[2020-07-10] MEDS: LACTATED RINGERS 1,000 ML IV SCH (07:26)
[2020-07-10] MEDS ORDERED: ePHEDrine SULFATE/0.9% NACL/PF 50 MG/5 ML SYRINGE IV ONE (07:46)
[2020-07-10] MEDS ORDERED: MIDAZOLAM 2 MG/2 ML VIAL ONE (07:46)
[2020-07-10] MEDS ORDERED: GLYCOPYRROLATE 0.2 MG/ML 2 ML VIAL ONE (07:46)
[2020-07-10] MEDS ORDERED: NEOSTIGMINE 1 MG/ML 10 ML VIAL ONE (07:46)
[2020-07-10] MEDS ORDERED: PROPOFOL 10 MG/ML 20 ML VIAL IV ONE (07:46)
[2020-07-10] MEDS ORDERED: LIDOCAINE 1% INJ 10MG/ML (20 ML MDV) ONE (07:46)
[2020-07-10] MEDS ORDERED: fentaNYL (PF) 50 MCG/ML 2 ML AMP ONE (07:46)
[2020-07-10] MEDS ORDERED: ROCURONIUM 10 MG/ML (10 ML VIAL) IV ONE (07:46)
[2020-07-10] MEDS ORDERED: KETAMINE 10 MG/ML 20 ML VIAL ONE (07:46)
[2020-07-10] MEDS ORDERED: SUCCINYLCHOLINE CHLORIDE 100 MG/5 ML SYR IV ONE (07:46)
[2020-07-10] MEDS ORDERED: LACTATED RINGERS 1,000 ML IV ONE ×2 (09:30→10:14)
[2020-07-10] MEDS ORDERED: ONDANSETRON 4 MG/2 ML VIAL IVP PRN ×3 (10:12→10:14)
[2020-07-10] MEDS ORDERED: HYDROmorphone 1 MG/ML 1 ML SYRINGE IVP PRN (10:12)
[2020-07-10] MEDS ORDERED: NALOXONE 0.4 MG/ML 1 ML VIAL IV PRN (10:14)
[2020-07-10] MEDS ORDERED: HYDROmorphone 0.5 MG/0.5 ML SYRINGE IVP PRN (10:14)
[2020-07-10] MEDS ORDERED: HYDROcodone/APAP 5-325MG 1 EACH TAB PO PRN (10:14)
[2020-07-10] MEDS: HYDROmorphone 0.5 MG/0.5 ML SYRINGE IVP PRN ×3 (10:15→11:05)
--- NOTE | 2020-07-10 10:20 | P.GSHP ---
History of Present Illness H&P Date: 07/10/20 Chief Complaint: Panniculus This a 59-year-old female with a well-formed panniculus. Patient presents today for panniculectomy. Past Medical History Past Medical History: Cancer, COPD, GERD/Reflux, Hyperlipidemia, Hypertension, Sleep Apnea/CPAP/BIPAP, Thyroid Disorder Additional Past Medical History / Comment(s): positive covid 06-06-20,migraines, insomnia, no longer uses C-pap machine after wt loss, severe vertigo- uses cane.,states low heart rate., hx colon polyp., chronic back pain, aortic aneurysm 4.5 cm , Breast cancer (surgery 06/2019)-no radiation had oral chemo, Sleeve Gastrectomy (04/2018)., internal hemorrhoids,Spinal stimulator-posterior lower left hip area. History of Any Multi-Drug Resistant Organisms: None Reported Past Surgical History: Bariatric Surgery, Bladder Surgery, Breast Surgery, Orthopedic Surgery Additional Past Surgical History / Comment(s): eye surgery, left thumb surgery, EGD, Double Mastectomy (06/2019). sleeve gastrectomy (04-20-18) Past Anesthesia/Blood Transfusion Reactions: No Reported Reaction, Motion Sickness Additional Past Anesthesia/Blood Transfusion Reaction / Comment(s): no hx blood transfusion Type of Cardiac Device: Loop Device Placement Date:: 2019 Past Psychological History: Depression, PTSD Smoking Status: Former smoker Past Alcohol Use History: Occasional Additional Past Alcohol Use History / Comment(s): Quit smoking 2017., smoked from age 8, smoked 1/2 to 1 ppd. She has history of alcohol abuse in her 20s and 30s but drink alcohol rarely at this point. She uses marijuana regularly. 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 Past Drug Use History: Marijuana Additional Drug Use History / Comment(s): current marijuana daily - Past Family History Mother Family Medical History: Cancer Additional Family Medical History / Comment(s): mother at age 54 due to lung cancer. Patient has 2 aunts had breast cancer. Patient does not have any children. Father Family Medical History: Coronary Artery Disease (CAD), Diabetes Mellitus Additional Family Medical History / Comment(s): Father is alive with history of CAD, DM and is on home O2. She does not know any further details. Sister(s) Additional Family Medical History / Comment(s): ETOH the patient has 2 sisters and one half-sister with no major medical problems. Brother(s) Family Medical History: Coronary Artery Disease (CAD) Additional Family Medical History / Comment(s): Patient has one brother with history of coronary artery disease status post CABG in heart failure. Medications and Allergies Home Medications Medication Instructions Recorded Confirmed Type traZODone HCL [Desyrel] 100 mg PO HS 11/21/14 06/30/20 History Montelukast [Singulair] 10 mg PO HS 12/27/15 06/30/20 History Atorvastatin [Lipitor] 10 mg PO HS 11/24/17 06/30/20 History Levothyroxine Sodium [Synthroid] 200 mcg PO QAM 11/24/17 06/30/20 History Baclofen [Lioresal] 10 mg PO TID PRN 05/25/18 06/30/20 History Omeprazole [PriLOSEC] 20 mg PO AC-BID 06/22/18 06/30/20 History SUMAtriptan SUCCINATE [Imitrex] 100 mg PO BID PRN 06/22/18 06/30/20 History Varenicline [Chantix Continuing 1 mg PO DAILY 06/22/18 06/30/20 History Pack] Meclizine [Antivert] 25 mg PO TID 02/05/19 06/30/20 History Vitamin C/Biotin [Hair, Skin and 1 tab PO BID 03/04/19 06/30/20 History Nails] Anastrozole [Arimidex] 1 mg PO DAILY 10/22/19 06/30/20 History Cholecalciferol [Vitamin D3 (25 2,000 unit PO DAILY 10/22/19 06/30/20 History Mcg = 1000 Iu)] Cyanocobalamin [Vitamin B-12] 1,500 mcg PO DAILY 10/22/19 06/30/20 History Ferrous Sulfate [Iron (65 MG 325 mg PO DAILY 10/22/19 06/30/20 History Elemental)] L.acidoph,Paracasei, B.lactis 1 each PO DAILY 10/22/19 06/30/20 History [Probiotic] Terazosin [Hytrin] 1 mg PO HS 10/22/19 06/30/20 History diphenhydrAMINE [Benadryl] 25 mg PO BID PRN 10/22/19 06/30/20 History Multivit with Calcium,Iron,Min 1 each PO BID 11/18/19 06/30/20 History [Women's Multivitamin] Calcium Citrate 1,000 mg PO QAM 12/26/19 06/30/20 History Aspirin 81 mg PO DAILY chew 12/27/19 06/30/20 Rx rOPINIRole HCL [Requip] 0.5 mg PO HS #30 tab 12/27/19 06/30/20 Rx Calcium Citrate 500 mg PO HS 06/30/20 06/30/20 History Magnesium 500 mg PO DAILY 06/30/20 06/30/20 History Allergies Allergy/AdvReac Type Severity Reaction Status Date / Time latex Allergy Rash/Hives Verified 07/10/20 06:52 nickel Allergy Rash/Hives Verified 07/10/20 06:52 paper tape Allergy Rash/Hives Uncoded 07/10/20 06:52 Surgical - Exam Vital Signs Temp Pulse Resp BP Pulse Ox 97.2 F L 60 16 108/74 97 07/10/20 06:57 07/10/20 06:57 07/10/20 06:57 07/10/20 06:57 07/10/20 06:57 - General well developed, no distress - Eyes PERRL - ENT normal pinna - Neck no masses - Respiratory normal expansion - Cardiovascular Rhythm: regular - Abdomen Abdomen: soft, non tender Assessment and Plan Assessment: Panniculus. We'll perform panniculus. Patient aware the risks of surgery including bleeding infection. She is aware this is not a cosmetic procedure ho wever procedure remove redundant skin and fat.
[2020-07-10] MEDS: KETOROLAC 15 MG/ML 1 ML VIAL IVP SCH ×2 (11:09→16:17)
[2020-07-10] MEDS: DEXTROSE 5%-0.9% NACL 1,000 ML IV SCH ×2 (12:30→13:05)
[2020-07-10] MEDS: HYDROmorphone 1 MG/ML 1 ML SYRINGE IVP PRN ×3 (13:04→21:57)
[2020-07-10] MEDS ORDERED: IPRATROPIUM-ALBUTEROL 3 ML NEB INHALATION PRN (13:21)
[2020-07-10] MEDS: PANTOPRAZOLE 40 MG/10 ML VIAL IVP SCH (15:13)
[2020-07-10] MEDS: IPRATROPIUM-ALBUTEROL 3 ML NEB INHALATION SCH ×2 (15:22→19:20)
[2020-07-10] MEDS ORDERED: DOXAZOSIN 1 MG TAB PO SCH (21:00)
--- NOTE | 2020-07-10 21:30 | P.CONS ---
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 Patient still on hormonal therapy. She developed to have significant panniculus and worsening infection in the lower part of her abdomen. With the significant weight loss she had ended up having more irritation and trouble with the excessive skin patient was scheduled for elective panic cholectomy which was done today successfully with no major complication she was admitted to the floor afterward her med were started patient is having slight bit pain otherwise is hemodynamically stable. Review of Systems CONSTITUTIONAL: Well-developed no acute respiratory distress. EYES: No icterus sclerae, no conjunctivitis. EARS, NOSE, MOUTH, THROAT, and FACE: No sore throat, lymphadenopathy, carotid bruits or deformity. RESPIRATORY: History of COPD with no shortness of breath or asthma no wheezes, history of sleep apnea without having his CPAP lately. CARDIOVASCULAR: Chest pain was more noncardiac with mild palpitation on and off and more bradycardia. GASTROINTESTINAL: No Abd pain, Nausea or vomiting, no Diarrhea or constipation, No GI Bleed, no distention or masses. GENITOURINARY: Negative for Hematuria or UTI, no kidney stones. INTEGUMENT/BREAST: Negative for any muscular injury with mild osteoarthritis.. HEMATOLOGIC/LYMPHATIC: Negative for bleed or purpura. MUSCULOSKELTAL: Negative for Myalgia or arthralgia. NEURLOGICAL: No LOC, Sz or syncope, blurred vision dizziness or abnormality.. BEHAVIORAL/PSYCH: Negative. ENDOCRINE: Negative. Past Medical History Past Medical History: Cancer, COPD, GERD/Reflux, Hyperlipidemia, Hypertension, Sleep Apnea/CPAP/BIPAP, Thyroid Disorder Additional Past Medical History / Comment(s): positive covid 06-06-20,migraines, insomnia, no longer uses C-pap machine after wt loss, severe vertigo- uses cane.,states low heart rate., hx colon polyp., chronic back pain, aortic aneurysm 4.5 cm , Breast cancer (surgery 06/2019)-no radiation had oral chemo, Sleeve Gastrectomy (04/2018)., internal hemorrhoids,Spinal stimulator-posterior lower left hip area. History of Any Multi-Drug Resistant Organisms: None Reported Past Surgical History: Bariatric Surgery, Bladder Surgery, Breast Surgery, Orthopedic Surgery Additional Past Surgical History / Comment(s): eye surgery, left thumb surgery, EGD, Double Mastectomy (06/2019), panniculectomy (07/10/20). sleeve gastrectomy (04-20-18) Past Anesthesia/Blood Transfusion Reactions: No Reported Reaction, Motion Sickness Additional Past Anesthesia/Blood Transfusion Reaction / Comm: no hx blood transfusion Type of Cardiac Device: Loop Device Placement Date:: 2019 Past Psychological History: Depression, PTSD Smoking Status: Current some day smoker Past Alcohol Use History: Occasional Additional Past Alcohol Use History / Comment(s): Quit smoking 2017 (admits to smoking "a couple puffs, once in a while, states she takes chantix), smoked from age 8, smoked 1/2 to 1 ppd. She has history of alcohol abuse in her 20s and 30s but drink alcohol rarely at this point. Also a history of crack cocaine abuse, sttes she has been clean for over 10 years. She uses marijuana regularly. 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 Past Drug Use History: Marijuana Additional Drug Use History / Comment(s): current marijuana daily - Past Family History Mother Family Medical History: Cancer Additional Family Medical History / Comment(s): mother at age 54 due to lung cancer. Patient has 2 aunts had breast cancer. Patient does not have any children. Father Family Medical History: Coronary Artery Disease (CAD), Diabetes Mellitus Additional Family Medical History / Comment(s): Father is alive with history of CAD, DM and is on home O2. She does not know any further details. Sister(s) Additional Family Medical History / Comment(s): ETOH the patient has 2 sisters and one half-sister with no major medical problems. Brother(s) Family Medical History: Coronary Artery Disease (CAD) Additional Family Medical History / Comment(s): Patient has one brother with history of coronary artery disease status post CABG in heart failure. Medications and Allergies Home Medications Medication Instructions Recorded Confirmed Type traZODone HCL [Desyrel] 100 mg PO HS 11/21/14 06/30/20 History Montelukast [Singulair] 10 mg PO HS 12/27/15 06/30/20 History Atorvastatin [Lipitor] 10 mg PO HS 11/24/17 06/30/20 History Levothyroxine Sodium [Synthroid] 200 mcg PO QAM 11/24/17 06/30/20 History Baclofen [Lioresal] 10 mg PO TID PRN 05/25/18 06/30/20 History Omeprazole [PriLOSEC] 20 mg PO AC-BID 06/22/18 06/30/20 History SUMAtriptan SUCCINATE [Imitrex] 100 mg PO BID PRN 06/22/18 06/30/20 History Varenicline [Chantix Continuing 1 mg PO DAILY 06/22/18 06/30/20 History Pack] Meclizine [Antivert] 25 mg PO TID 02/05/19 06/30/20 History Vitamin C/Biotin [Hair, Skin and 1 tab PO BID 03/04/19 06/30/20 History Nails] Anastrozole [Arimidex] 1 mg PO DAILY 10/22/19 06/30/20 History Cholecalciferol [Vitamin D3 (25 2,000 unit PO DAILY 10/22/19 06/30/20 History Mcg = 1000 Iu)] Cyanocobalamin [Vitamin B-12] 1,500 mcg PO DAILY 10/22/19 06/30/20 History Ferrous Sulfate [Iron (65 MG 325 mg PO DAILY 10/22/19 06/30/20 History Elemental)] L.acidoph,Paracasei, B.lactis 1 each PO DAILY 10/22/19 06/30/20 History [Probiotic] Terazosin [Hytrin] 1 mg PO HS 10/22/19 06/30/20 History diphenhydrAMINE [Benadryl] 25 mg PO BID PRN 10/22/19 06/30/20 History Multivit with Calcium,Iron,Min 1 each PO BID 11/18/19 06/30/20 History [Women's Multivitamin] Calcium Citrate 1,000 mg PO QAM 12/26/19 06/30/20 History Aspirin 81 mg PO DAILY chew 12/27/19 06/30/20 Rx rOPINIRole HCL [Requip] 0.5 mg PO HS #30 tab 12/27/19 06/30/20 Rx Calcium Citrate 500 mg PO HS 06/30/20 06/30/20 History Magnesium 500 mg PO DAILY 06/30/20 06/30/20 History Allergies Allergy/AdvReac Type Severity Reaction Status Date / Time latex Allergy Rash/Hives Verified 07/10/20 06:52 nickel Allergy Rash/Hives Verified 07/10/20 06:52 paper tape Allergy Rash/Hives Uncoded 07/10/20 06:52 Physical Exam Vitals: Vital Signs Temp Pulse Pulse Pulse Resp BP BP 07/10/20 15:38 74 07/10/20 15:23 72 07/10/20 14:00 98.1 F 66 16 91/54 07/10/20 11:15 66 16 111/59 07/10/20 11:00 74 16 136/71 07/10/20 10:45 59 L 16 112/58 07/10/20 10:30 83 16 111/56 07/10/20 10:15 62 16 152/67 07/10/20 10:00 98.2 F 81 16 172/89 07/10/20 06:57 97.2 F L 60 16 108/74 Pulse Ox 07/10/20 15:38 07/10/20 15:23 95 07/10/20 14:00 95 07/10/20 11:15 96 07/10/20 11:00 94 L 07/10/20 10:45 100 07/10/20 10:30 99 07/10/20 10:15 100 07/10/20 10:00 96 07/10/20 06:57 97 Intake and Output 07/10/20 07/10/20 07/10/20 06:59 14:59 22:59 Intake Total 1750 Output Total 250 50 Balance 1500 -50 Intake: IV 1750 Output: Drainage 50 Abdomen 30 Lower Abdomen 20 Urine 200 Estimated Blood Loss 50 Other: # Voids 2 Weight 77.3 kg 77.3 kg General Appearance: Alert, cooperative, no distress, appears stated age. Neck HEENT: Supple, no lymphadenopathy, no thyroid enlargement, no carotid bruits. Lungs: Decreased breath some bilateral with fine rhonchi with mild expiratory wheezes. Chest Wall: Decrease expansion with deep inspiration no tenderness and no deformity was found on exam, no costochondral pain or discomfort. Heart: Regular rate and rhythm, S1, S2 normal, no murmur, rub or gallop. Back: Symmetric, no curvature, ROM normal, no CVA tenderness. Abdomen: Soft, non-tender, bowel sounds active all four quadrants, no masses, no organomegaly. Surgical side lower abdominal area looks fine still drainage tube on the side with no hematoma or bleeding. Extremities: Extremities normal, atraumatic, no cyanosis or edema. Pulses: 2+ and symmetric. Skin: Skin color, texture, tugor normal, no rashes or lesions. Neurologic: Alert oriented x3 cranial nerves II through XII intact, no motor deficit, no abnormal balance or gait. Assessment and Plan Assessment: 1 post panniculectomy: Patient was admitted to medical floor continue care for drainage tube, continue pain management continue to watch patient with status carefully this point. Medication was started and patient will be watch for any complication. 2 hypertension: Blood pressure is well-controlled currently on Terazosin 1 mg daily. 3 hypothyroidism: Continue patient on levothyroxine 200 g daily. 4 hyperlipidemia: Resume Lipitor 10 mg daily. 5 COPD: We'll continue patient on rescue inhaler as DuoNeb continue O2 keep pulse ox much above 90 percentile. 6 history of breast cancer post double mastectomy remain on Arimidex 1 mg daily. 7 chronic history of migraine: Has been on Imitrex in the milligrams twice a day as needed. 8 chronic depression and insomnia: Remain on trazodone 100 mg daily at bedtime. 9 restless leg syndrome continue Requip at 0.5 mg daily at bedtime. 10 GI prophylaxis: Remain on omeprazole 20 mg twice a day. 11 DVT prophylaxis: Patient will be on Lovenox 40 mg subcutaneous daily. 12 pain management: Continue patient on Dilaudid as needed for now hydrocodone orally will be started as well. CODE STATUS: Full code. Dr. Coley thank you much for the consult if I can be any further help to please let me know thank you.
[2020-07-10] MEDS: DOCUSATE 100 MG CAP PO SCH (21:57)
[2020-07-10] MEDS: MONTELUKAST 10 MG TAB PO SCH (21:57)
[2020-07-10] MEDS: ATORVASTATIN 10 MG TAB PO SCH (21:57)
[2020-07-11] MEDS: KETOROLAC 15 MG/ML 1 ML VIAL IVP SCH ×4 (02:01→18:28)
[2020-07-11] MEDS: HYDROmorphone 1 MG/ML 1 ML SYRINGE IVP PRN ×3 (02:06→11:20)
[2020-07-11] MEDS: DEXTROSE 5%-0.9% NACL 1,000 ML IV SCH ×2 (04:42→21:03)
[2020-07-11] MEDS: LEVOTHYROXINE 100 MCG TAB PO SCH (06:10)
[2020-07-11] MEDS: LACTATED RINGERS 1,000 ML IV SCH (07:09)
[2020-07-11] MEDS: IPRATROPIUM-ALBUTEROL 3 ML NEB INHALATION SCH ×4 (07:48→19:40)
[2020-07-11] MEDS: MAGNESIUM OXIDE 400 MG TAB PO SCH (07:49)
[2020-07-11] MEDS: FERROUS SULFATE 325 MG TAB PO SCH (07:49)
[2020-07-11] MEDS: LACTOBACILLUS ACIDOPH & BULGAR 1 EACH PACKET PO SCH (07:49)
[2020-07-11] MEDS: VARENICLINE 1 MG TAB PO SCH (07:49)
[2020-07-11] MEDS: DOCUSATE 100 MG CAP PO SCH ×2 (07:50→21:05)
[2020-07-11] MEDS: ENOXAPARIN 40 MG/0.4 ML SYRINGE SQ SCH (07:50)
[2020-07-11] MEDS: PANTOPRAZOLE 40 MG/10 ML VIAL IVP SCH (07:50)
[2020-07-11] MEDS: ANASTROZOLE 1 MG TAB PO SCH (07:51)
--- NOTE | 2020-07-11 09:29 | P.PN ---
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 Patient still on hormonal therapy. She developed to have significant panniculus and worsening infection in the lower part of her abdomen. With the significant weight loss she had ended up having more irritation and trouble with the excessive skin patient was scheduled for elective panic cholectomy which was done today successfully with no major complication she was admitted to the floor afterward her med were started patient is having slight bit pain otherwise is hemodynamically stable. 07/11: Patient denies shortness of breath, no chest pain. Abdominal pain is controlled. Patient is concerned that her blood pressure has been low overnight. Cardura was held and we will discontinue this while in the hospital. Patient will follow-up with Dr. Hugo Preston and determine when to resume. She has been afebrile, heart rate 72, blood pressure 109/72, pulse ox 93% on room air. Patient is currently on regular diet. [address] REVIEW OF SYSTEMS CONSTITUTIONAL: Well-developed no acute respiratory distress. EYES: No icterus sclerae, no conjunctivitis. EARS, NOSE, MOUTH, THROAT, and FACE: No sore throat, lymphadenopathy, carotid bruits or deformity. RESPIRATORY: History of COPD with no shortness of breath or asthma no wheezes, history of sleep apnea without having his CPAP lately. CARDIOVASCULAR: Chest pain was more noncardiac with mild palpitation on and off and more bradycardia. GASTROINTESTINAL: No Abd pain, Nausea or vomiting, no Diarrhea or constipation, No GI Bleed, no distention or masses. GENITOURINARY: Negative for Hematuria or UTI, no kidney stones. INTEGUMENT/BREAST: Negative for any muscular injury with mild osteoarthritis.. HEMATOLOGIC/LYMPHATIC: Negative for bleed or purpura. MUSCULOSKELTAL: Negative for Myalgia or arthralgia. NEURLOGICAL: No LOC, Sz or syncope, blurred vision dizziness or abnormality.. BEHAVIORAL/PSYCH: Negative. ENDOCRINE: Negative. PHYSICAL EXAMINATION General Appearance: Alert, cooperative, no distress, appears stated age. Neck HEENT: Supple, no lymphadenopathy, no thyroid enlargement, no carotid bruits. Lungs: Decreased breath some bilateral with fine rhonchi with mild expiratory wheezes. Chest Wall: Decrease expansion with deep inspiration no tenderness and no deformity was found on exam, no costochondral pain or discomfort. Heart: Regular rate and rhythm, S1, S2 normal, no murmur, rub or gallop. Back: Symmetric, no curvature, ROM normal, no CVA tenderness. Abdomen: Soft, non-tender, bowel sounds active all four quadrants, no masses, no organomegaly. Surgical side lower abdominal area looks fine , AMELIE drain [address] Extremities: Extremities normal, atraumatic, no cyanosis or edema. Pulses: 2+ and symmetric. Skin: Skin color, texture, tugor normal, no rashes or lesions. Neurologic: Alert oriented x3 cranial nerves II through XII intact, no motor deficit, no abnormal balance or gait. ASSESSMENT AND PLAN 1 post panniculectomy: Patient was admitted to medical floor continue care for drainage tube, continue pain management continue to watch patient with status carefully this point. Medication was started and patient will be watch for any complication. 2 hypertension, patient is currently hypotensive. Cardura placed on hold. 3 hypothyroidism: Continue patient on levothyroxine 200 g daily. 4 hyperlipidemia: Resume Lipitor 10 mg daily. 5 COPD: We'll continue patient on rescue inhaler as DuoNeb continue O2 keep pulse ox much above 90 percentile. 6 history of breast cancer post double mastectomy remain on Arimidex 1 mg daily. 7 chronic history of migraine: Has been on Imitrex in the milligrams twice a day as needed. 8 chronic depression and insomnia: Remain on trazodone 100 mg daily at bedtime. 9 restless leg syndrome continue Requip at 0.5 mg daily at bedtime. 10 GI prophylaxis: Remain on omeprazole 20 mg twice a day. 11 DVT prophylaxis: Patient will be on Lovenox 40 mg subcutaneous daily. 12 pain management: Continue patient on Dilaudid as needed for now hydrocodone orally will be started as well. CODE STATUS: Full code. DISCHARGE PLAN HOME Impression and plan of care have been directed as dictated by the signing physician. Shanthi Potter nurse practitioner acting as scribe for signing physician. Objective - Vital Signs Vital signs: Vital Signs Temp 97.9 F 01/26/21 07:50 Pulse 82 07/11/20 07:56 Resp 16 07/11/20 07:56 BP 109/72 07/11/20 07:50 Pulse Ox 93 L 07/11/20 07:50 Intake & Output 07/10/20 07/11/20 07/11/20 18:59 06:59 18:59 Intake Total 1750 Output Total 300 200 53 Balance 1450 -200 -53 Weight 77.3 kg Intake: IV 1750 Output: Drainage 50 53 Abdomen 30 50 Lower Abdomen 20 3 Urine 200 200 Estimated Blood Loss 50 Other: Voiding Method Toilet # Voids 2
--- NOTE | 2020-07-11 13:57 | P.PN ---
Subjective Progress Note Date: 07/11/20 CHIEF COMPLAINT: Panniculus HISTORY OF PRESENT ILLNESS: Patient is status post panniculectomy. She em ated surgery well. Her pain is controlled. She does not feel quite ready for discharge today. She is currently on a regular diet. Afebrile. PHYSICAL EXAM: VITAL SIGNS: Reviewed. GENERAL: Well-developed in no acute distress. HEENT: No sclera icterus. Extraocular movements grossly intact. Moist buccal mucosa. Head is atraumatic, normocephalic. ABDOMEN: Soft. Nondistended. Incision site clean dry and intact. Patient does have 2 AMEILE drains with sanguinous fluid NEUROLOGIC: Alert and oriented. Cranial nerves II through XII grossly intact. ASSESSMENT: 1. Status post panniculectomy PLAN: -Continue regular diet -Transition patient to oral pain medications -Encourage patient to ambulate and use incentive spirometer -Hep-Lock IV -Okay for patient to take shower -Anticipate discharge tomorrow Physician Building Construction Teacher note has been reviewed by physician. Signing provider agrees with the documented findings, assessment, and plan of care. Objective - Vital Signs Vital signs: Vital Signs Temp 97.3 F L 07/11/20 10:25 Pulse 76 07/11/20 11:35 Resp 18 07/11/20 11:35 BP 113/71 07/11/20 10:25 Pulse Ox 96 07/11/20 11:35 Intake & Output 07/10/20 07/11/20 07/11/20 18:59 06:59 18:59 Intake Total 1750 Output Total 300 200 88 Balance 1450 -200 -88 Weight 77.3 kg Intake: IV 1750 Output: Drainage 50 88 Abdomen 30 80 Lower Abdomen 20 8 Urine 200 200 Estimated Blood Loss 50 Other: Voiding Method Toilet Toilet # Voids 2 1
[2020-07-11] MEDS: MONTELUKAST 10 MG TAB PO SCH (21:05)
[2020-07-11] MEDS: ATORVASTATIN 10 MG TAB PO SCH (21:05)
[2020-07-12] MEDS: KETOROLAC 15 MG/ML 1 ML VIAL IVP SCH ×2 (00:05→06:21)
[2020-07-12] MEDS ORDERED: SUMAtriptan succinate 50 MG TAB PO PRN (01:06)
[2020-07-12] MEDS: LACTATED RINGERS 1,000 ML IV SCH (01:09)
[2020-07-12] MEDS: DEXTROSE 5%-0.9% NACL 1,000 ML IV SCH (01:09)
[2020-07-12] MEDS: LEVOTHYROXINE 100 MCG TAB PO SCH (06:21)
[2020-07-12] MEDS: DOCUSATE 100 MG CAP PO SCH (09:48)
[2020-07-12] MEDS: LACTOBACILLUS ACIDOPH & BULGAR 1 EACH PACKET PO SCH (09:48)
[2020-07-12] MEDS: FERROUS SULFATE 325 MG TAB PO SCH (09:48)
[2020-07-12] MEDS: ENOXAPARIN 40 MG/0.4 ML SYRINGE SQ SCH (09:48)
[2020-07-12] MEDS: IPRATROPIUM-ALBUTEROL 3 ML NEB INHALATION SCH ×2 (09:51→12:21)
[2020-07-12] MEDS: PANTOPRAZOLE 40 MG/10 ML VIAL IVP SCH (09:52)
[2020-07-12] MEDS: ANASTROZOLE 1 MG TAB PO SCH (10:06)
[2020-07-12] MEDS: VARENICLINE 1 MG TAB PO SCH (10:06)
[2020-07-12] MEDS: MAGNESIUM OXIDE 400 MG TAB PO SCH (10:06)
--- NOTE | 2020-07-12 12:30 | P.PN ---
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 Patient still on hormonal therapy. She developed to have significant panniculus and worsening infection in the lower part of her abdomen. With the significant weight loss she had ended up having more irritation and trouble with the excessive skin patient was scheduled for elective panic cholectomy which was done today successfully with no major complication she was admitted to the floor afterward her med were started patient is having slight bit pain otherwise is hemodynamically stable. 07/11: Patient denies shortness of breath, no chest pain. Abdominal pain is controlled. Patient is concerned that her blood pressure has been low overnight. Cardura was held and we will discontinue this while in the hospital. Patient will follow-up with Dr. Hugo Preston and determine when to resume. She has been afebrile, heart rate 72, blood pressure 109/72, pulse ox 93% on room air. Patient is currently on regular diet. [address] 07/12: Patient complaining of migraine headache during the night and was ordered for Imitrex which helped significantly. Headache has resolved. She states she has about 1-2 migraine headaches per month. Abdominal pain is controlled. She is anticipating discharge today. She is ambulating the hallway without difficulty. She has been instructed to take incentive spirometry and CHIDI hose home. She's been afebrile, heart rate 82, blood pressure 138/88, pulse ox 93% on room air. Patient is to continue to hold Cardura until followed up with Dr. Hugo Preston. REVIEW OF SYSTEMS CONSTITUTIONAL: Well-developed no acute respiratory distress. Denies fever denies chills. Denies headache. EYES: No icterus sclerae, no conjunctivitis. EARS, NOSE, MOUTH, THROAT, and FACE: No sore throat, lymphadenopathy, carotid bruits or deformity. RESPIRATORY: History of COPD with no shortness of breath or asthma no wheezes, history of sleep apnea without having his CPAP lately. CARDIOVASCULAR: Chest pain was more noncardiac with mild palpitation on and off and more bradycardia. GASTROINTESTINAL: No Abd pain, Nausea or vomiting, no Diarrhea or constipation, No GI Bleed, no distention or masses. GENITOURINARY: Negative for Hematuria or UTI, no kidney stones. INTEGUMENT/BREAST: Negative for any muscular injury with mild osteoarthritis.. HEMATOLOGIC/LYMPHATIC: Negative for bleed or purpura. MUSCULOSKELTAL: Negative for Myalgia or arthralgia. NEURLOGICAL: No LOC, Sz or syncope, blurred vision dizziness or abnormality.. BEHAVIORAL/PSYCH: Negative. ENDOCRINE: Negative. PHYSICAL EXAMINATION General Appearance: Alert, cooperative, no distress, appears stated age. Neck HEENT: Supple, no lymphadenopathy, no thyroid enlargement, no carotid bruits. Lungs: Decreased breath some bilateral with fine rhonchi with mild expiratory wheezes. Chest Wall: Decrease expansion with deep inspiration no tenderness and no deformity was found on exam, no costochondral pain or discomfort. Heart: Regular rate and rhythm, S1, S2 normal, no murmur, rub or gallop. Back: Symmetric, no curvature, ROM normal, no CVA tenderness. Abdomen: Soft, non-tender, bowel sounds active all four quadrants, no masses, no organomegaly. Surgical lower abdominal area looks fine , AMELIE drain [address] Extremities: Extremities normal, atraumatic, no cyanosis or edema. Pulses: 2+ and symmetric. Skin: Skin color, texture, tugor normal, no rashes or lesions. Neurologic: Alert oriented x3 cranial nerves II through XII intact, no motor deficit, no abnormal balance or gait. ASSESSMENT AND PLAN 1 post panniculectomy: Patient was admitted to medical floor continue care for drainage tube, continue pain management continue to watch patient with status carefully this point. Medication was started and patient will be watch for any complication. 2 hypertension, patient is currently hypotensive. Cardura placed on hold. 3 hypothyroidism: Continue patient on levothyroxine 200 g daily. 4 hyperlipidemia: Resume Lipitor 10 mg daily. 5 COPD: We'll continue patient on rescue inhaler as DuoNeb continue O2 keep pulse ox much above 90 percentile. 6 history of breast cancer post double mastectomy remain on Arimidex 1 mg daily. 7 chronic history of migraine: Has been on Imitrex in the milligrams twice a day as needed. 8 chronic depression and insomnia: Remain on trazodone 100 mg daily at bedtime. 9 restless leg syndrome continue Requip at 0.5 mg daily at bedtime. 10 GI prophylaxis: Remain on omeprazole 20 mg twice a day. 11 DVT prophylaxis: Patient will be on Lovenox 40 mg subcutaneous daily. 12 pain management: Continue patient on Dilaudid as needed for now hydrocodone orally will be started as well. 13 migraine headache s/p Imitrex, resolved CODE STATUS: Full code. DISCHARGE PLAN HOME today Impression and plan of care have been directed as dictated by the signing physician. Shanthi Potter nurse practitioner acting as scribe for signing physician. Objective - Vital Signs Vital signs: Vital Signs Temp 97.9 F 07/12/20 02:47 Pulse 82 07/12/20 02:47 Resp 16 07/12/20 02:47 BP 138/88 07/12/20 02:47 Pulse Ox 93 L 07/12/20 02:47 Intake & Output 07/11/20 07/12/20 07/12/20 18:59 06:59 18:59 Output Total 158 81 Balance -158 -81 Output: Drainage 158 81 Abdomen 120 30 Lower Abdomen 38 51 Other: Voiding Method Toilet # Voids 1
--- NOTE | 2020-07-12 13:41 | P.DS ---
Providers Date of admission: 07/11/20 14:25 Expected date of discharge: 07/12/20 Attending physician: Navid Coley Consults: 07/10/20 10:14 Consult Physician Routine Consulting Provider: Scott Hammond Consult Reason/Comments: Medical management Do you want consulting provider notified?: Yes Primary care physician: [facility] Course: Discharge diagnosis 1. Panniculitis status post panniculectomy Hospital course This is a 59-year-old female with panniculitis she is status post panniculectomy. Patient tolerated surgery well. Her pain is controlled. She i s tolerating diet. She is having bowel movements and passing gas. She is ambulating. She is afebrile. Patient is stable for discharge. Please refer to chart for any further details. Physician Kiln Remover note has been reviewed by physician. Signing provider agrees with the documented findings, assessment, and plan of care. Patient Condition at Discharge: Stable Plan - Discharge Summary Discharge Rx Participant: No New Discharge Prescriptions: New Docusate [Colace] 100 mg PO BID #30 capsule oxyCODONE HCL [OxyIR] 5 mg PO Q6H PRN 3 Days #12 tab PRN Reason: Pain No Action traZODone HCL [Desyrel] 100 mg PO HS Montelukast [Singulair] 10 mg PO HS Levothyroxine Sodium [Synthroid] 200 mcg PO QAM Atorvastatin [Lipitor] 10 mg PO HS Baclofen [Lioresal] 10 mg PO TID PRN PRN Reason: Pain SUMAtriptan SUCCINATE [Imitrex] 100 mg PO BID PRN PRN Reason: pain Varenicline [Chantix Continuing Pack] 1 mg PO DAILY Omeprazole [PriLOSEC] 20 mg PO AC-BID Meclizine [Antivert] 25 mg PO TID Vitamin C/Biotin [Hair, Skin and Nails] 1 tab PO BID diphenhydrAMINE [Benadryl] 25 mg PO BID PRN PRN Reason: Itching Ferrous Sulfate [Iron (65 MG Elemental)] 325 mg PO DAILY Terazosin [Hytrin] 1 mg PO HS Cyanocobalamin [Vitamin B-12] 1,500 mcg PO DAILY Cholecalciferol [Vitamin D3 (25 Mcg = 1000 Iu)] 2,000 unit PO DAILY Anastrozole [Arimidex] 1 mg PO DAILY L.acidoph,Paracasei, B.lactis [Probiotic] 1 each PO DAILY Multivit with Calcium,Iron,Min [Women's Multivitamin] 1 each PO BID Calcium Citrate 1,000 mg PO QAM Aspirin 81 mg PO DAILY chew rOPINIRole HCL [Requip] 0.5 mg PO HS #30 tab Calcium Citrate 500 mg PO HS Magnesium 500 mg PO DAILY Discharge Medication List traZODone HCL [Desyrel] 100 mg PO HS 11/21/14 [History] Montelukast [Singulair] 10 mg PO HS 12/27/15 [History] Atorvastatin [Lipitor] 10 mg PO HS 11/24/17 [History] Levothyroxine Sodium [Synthroid] 200 mcg PO QAM 11/24/17 [History] Baclofen [Lioresal] 10 mg PO TID PRN 05/25/18 [History] Omeprazole [PriLOSEC] 20 mg PO AC-BID 06/22/18 [History] SUMAtriptan SUCCINATE [Imitrex] 100 mg PO BID PRN 06/22/18 [History] Varenicline [Chantix Continuing Pack] 1 mg PO DAILY 06/22/18 [History] Meclizine [Antivert] 25 mg PO TID 02/05/19 [History] Vitamin C/Biotin [Hair, Skin and Nails] 1 tab PO BID 03/04/19 [History] Anastrozole [Arimidex] 1 mg PO DAILY 10/22/19 [History] Cholecalciferol [Vitamin D3 (25 Mcg = 1000 Iu)] 2,000 unit PO DAILY 10/22/19 [History] Cyanocobalamin [Vitamin B-12] 1,500 mcg PO DAILY 10/22/19 [History] Ferrous Sulfate [Iron (65 MG Elemental)] 325 mg PO DAILY 10/22/19 [History] L.acidoph,Paracasei, B.lactis [Probiotic] 1 each PO DAILY 10/22/19 [History] Terazosin [Hytrin] 1 mg PO HS 10/22/19 [History] diphenhydrAMINE [Benadryl] 25 mg PO BID PRN 10/22/19 [History] Multivit with Calcium,Iron,Min [Women's Multivitamin] 1 each PO BID 11/18/19 [History] Calcium Citrate 1,000 mg PO QAM 12/26/19 [History] Aspirin 81 mg PO DAILY chew 12/27/19 [Rx] rOPINIRole HCL [Requip] 0.5 mg PO HS #30 tab 12/27/19 [Rx] Calcium Citrate 500 mg PO HS 06/30/20 [History] Magnesium 500 mg PO DAILY 06/30/20 [History] Docusate [Colace] 100 mg PO BID #30 capsule 07/12/20 [Rx] oxyCODONE HCL [OxyIR] 5 mg PO Q6H PRN 3 Days #12 tab 07/12/20 [Rx] Follow up Appointment(s)/Referral(s): Hugo Preston MD [Primary Care Provider] - 1 Week Navid Coley MD [STAFF PHYSICIAN] - 1 Week Activity/Diet/Wound Care/Special Instructions: Med rec to be completed by medicine service [facility] until seen by Dr. Hugo Preston. No driving while taking [place] No lifting over 10 pounds You may shower. No soaking or tub baths for 2 weeks Very light activity until you are reevaluated at your follow up appointment with your surgeon Keep a log of AMELIE drain output and bring with you to your follow-up appointment Milk/strip drains 2-3 times a day Diet regular Discharge Disposition: HOME SELF-CARE
[2020-07-12 14:36] VITALS: BP 110/76; PULSE 89; RESP 25; TEMP 99
[2020-07-13] MEDS ORDERED: PANTOPRAZOLE 40 MG TABLET PO SCH (07:30)
--- NOTE | 2020-08-09 08:44 | P.OP ---
Date of Procedure: 07/12/20 Preoperative Diagnosis: Panniculus Postoperative Diagnosis: Panniculus Procedure(s) Performed: Panniculectomy Anesthesia: NAIN Surgeon: Navid Coley Estimated Blood Loss (ml): 50 Pathology: none sent Condition: stable Disposition: PACU Description of Procedure: PROCEDURE: The patient was placed on the operating table in supine position and received general anesthetic. The abdomen was prepped and draped in the usual sterile fashion. The lower skin incision was then made after the skin was marked with a marker. The incision ran from the pubic area to the level of the anterosuperior iliac spine. Using blunt and sharp dissection and electrocautery the subcutaneous tissues were then dissected down to the level of the fascia external oblique. Next, a lisa shaped incision was made around the umbilicus and the umbilicus was then dissected down to the level of the fascia external oblique. Care was taken to ensure that the umbilical stalk was wide enough in order to maintain viability of the umbilicus. After the umbilicus was dissected a 0 Vicryl suture was used to orientate the umbilicus. The suture was placed at the 12 o'clock position of the umbilicus. Following this the dissection was then made from the inferior pannicular incision cephalad. The x iphoid and costal margins were the limits of the dissection. Several small perforating vessels were ligated and cautery was used to maintain hemostasis. Once the dissection was performed the panniculus was then divided in the midline from the level of the umbilicus towards the pubic area. Downward and lateral traction was then placed on the abdominal wall and the skin was suitably marked for transection of the umbilicus. The skin was then incised and the Bovie was used for dissection of the pannicular flap. Next, three 10-Pashto AMELIE drains were placed in the wound and brought out through separate stab incisions at the level of the pubic area. The drains were secured to the skin using 3-0 nylon. After the AMELIE drains were secured, Callum's fascia was closed with interrupted 0 Vicryl sutures and then the skin was closed with running 3-0 Monocryl sutures. Prior to closure of the abdominal wall care was taken to ensure that both the abdominal wall and the abdominal wall flap were hemostatic. Next, the umbilicus was reattached to the abdominal wall. A marking line was made across the top of the iliac crest and this line intercepted with the midline abdominal wall line that had been previously made in the preoperative hold area. A small semicircular U-shaped incision was created at the intersection of the two lines and the umbilicus was brought up through this incision. The umbilicus was then trimmed and secured to the skin using 3-0 Monocryl sutures. At this point the drains were placed to suction. The abdomen was cleaned and then sterile tape was placed over top of the incisions. Abdominal binder was then placed. The patient tolerated the procedure well. The patient was sent to recovery room in stable condition.
== END 2020-07-12 15:05 | disposition home or self-care (01) ==
LOC: OR 06:14 → 4SSUR 10:00 → 6PED 07-11 10:04 → OR 07-11 14:17 → 6PED 07-11 14:25
PROVIDERS: ADMIT Surgery; ATTEND Surgery
DX: M79.3 Panniculitis, unspecified (principal); L98.7 Excessive and redundant skin and subcutaneous tissue; E78.5 Hyperlipidemia, unspecified; I10 Essential (primary) hypertension; J44.9 Chronic obstructive pulmonary disease, unspecified; G47.33 Obstructive sleep apnea (adult) (pediatric); K21.9 Gastro-esophageal reflux disease without esophagitis; G43.909 Migraine, unspecified, not intractable, without status migrainosus; E03.9 Hypothyroidism, unspecified; I95.9 Hypotension, unspecified; G25.81 Restless legs syndrome; G47.00 Insomnia, unspecified; G89.29 Other chronic pain; M54.9 Dorsalgia, unspecified; I71.9 Aortic aneurysm of unspecified site, without rupture; K64.8 Other hemorrhoids; R00.1 Bradycardia, unspecified; R42 Dizziness and giddiness; F32.9 Major depressive disorder, single episode, unspecified; F43.10 Post-traumatic stress disorder, unspecified; F12.90 Cannabis use, unspecified, uncomplicated; F17.210 Nicotine dependence, cigarettes, uncomplicated; Z79.890 Hormone replacement therapy; Z79.811 Long term (current) use of aromatase inhibitors; Z79.82 Long term (current) use of aspirin; Z79.899 Other long term (current) drug therapy; Z91.040 Latex allergy status; Z91.048 Other nonmedicinal substance allergy status; Z90.10 Acquired absence of unspecified breast and nipple; Z87.898 Personal history of other specified conditions; Z86.16 Personal history of COVID-19; Z85.3 Personal history of malignant neoplasm of breast; Z92.21 Personal history of antineoplastic chemotherapy; Z87.19 Personal history of other diseases of the digestive system; Z96.82 Presence of neurostimulator; Z98.84 Bariatric surgery status; Z80.1 Family history of malignant neoplasm of trachea, bronchus and lung; Z80.3 Family history of malignant neoplasm of breast; Z82.49 Family history of ischemic heart disease and other diseases of the circulatory system; Z83.3 Family history of diabetes mellitus
CPT/HCPCS: 94640 ×3; 88305; 15830; G0378 ×2; J2250; J1644; J1100; J2710; J0690 ×2; J2405 ×2; J2001; J1650 ×2; J3010; S0170 ×2; J1170 ×3; J1885 ×3; J0330; J2704; C9113 ×2

== ENCOUNTER 2020-10-11 16:30 | Emergency (ER) | payer MEDICARE, OTHER ==
[2020-10-11 16:35] VITALS: BP 156/80; PULSE 65; RESP 18; TEMP 98
[2020-10-11] MEDS ORDERED: DIPH,PERTUS(ACELL)TETVAC-LF 0.5 ML VIAL IM ONE (17:13)
[2020-10-11] MEDS ORDERED: ceFAZolin 1,000 MG VIAL (IM USE) IM STA (17:14)
[2020-10-11] MEDS ORDERED: oxyCODONE-APAP 7.5-325MG 1 EACH TAB PO STA (17:14)
[2020-10-11] MEDS ORDERED: LIDOCAINE 1% INJ 10MG/ML (20 ML MDV) SQ ONE (17:44)
--- NOTE | 2020-10-11 18:26 | ED ---
Wound/Laceration HPI - General Chief Complaint: Wound/Laceration Stated Complaint: R RING FINGER LACERATION Time Seen by Provider: 10/11/20 17:06 Source: patient Mode of arrival: ambulatory Limitations: no limitations - History of Present Illness Initial Comments: 59-year-old female presenting for right fourth digit crush injury. Patient states her finger was crushed by a part of an entertainment center when she was attempting to move it. Patient states it was bleeding. Patient states it is throbbing now. She states she cannot fully range at the tip. No additional complaints. unsure of last tetanus. pt appears wellnontoxic not complaining of any other injuries. - Related Data Home Medications Medication Instructions Recorded Confirmed traZODone HCL [Desyrel] 100 mg PO HS 11/21/14 06/30/20 Montelukast [Singulair] 10 mg PO HS 12/27/15 06/30/20 Atorvastatin [Lipitor] 10 mg PO HS 11/24/17 06/30/20 Levothyroxine Sodium [Synthroid] 200 mcg PO QAM 11/24/17 06/30/20 Baclofen [Lioresal] 10 mg PO TID PRN 05/25/18 06/30/20 Omeprazole [PriLOSEC] 20 mg PO AC-BID 06/22/18 06/30/20 SUMAtriptan SUCCINATE [Imitrex] 100 mg PO BID PRN 06/22/18 06/30/20 Varenicline [Chantix Continuing 1 mg PO DAILY 06/22/18 06/30/20 Pack] Meclizine [Antivert] 25 mg PO TID 02/05/19 06/30/20 Vitamin C/Biotin [Hair, Skin and 1 tab PO BID 03/04/19 06/30/20 Nails] Anastrozole [Arimidex] 1 mg PO DAILY 10/22/19 06/30/20 Cholecalciferol [Vitamin D3 (25 2,000 unit PO DAILY 10/22/19 06/30/20 Mcg = 1000 Iu)] Cyanocobalamin [Vitamin B-12] 1,500 mcg PO DAILY 10/22/19 06/30/20 Ferrous Sulfate [Iron (65 MG 325 mg PO DAILY 10/22/19 06/30/20 Elemental)] L.acidoph,Paracasei, B.lactis 1 each PO DAILY 10/22/19 06/30/20 [Probiotic] Terazosin [Hytrin] 1 mg PO HS 10/22/19 06/30/20 diphenhydrAMINE [Benadryl] 25 mg PO BID PRN 10/22/19 06/30/20 Multivit with Calcium,Iron,Min 1 each PO BID 11/18/19 06/30/20 [Women's Multivitamin] Calcium Citrate 1,000 mg PO QAM 12/26/19 06/30/20 Calcium Citrate 500 mg PO HS 06/30/20 06/30/20 Magnesium 500 mg PO DAILY 06/30/20 06/30/20 Previous Rx's Medication Instructions Recorded Aspirin 81 mg PO DAILY chew 12/27/19 rOPINIRole HCL [Requip] 0.5 mg PO HS #30 tab 12/27/19 Docusate [Colace] 100 mg PO BID #30 capsule 07/12/20 oxyCODONE HCL [OxyIR] 5 mg PO Q6H PRN 3 Days #12 tab 07/12/20 Cephalexin [Keflex] 500 mg PO Q6HR 10 Days #40 cap 10/11/20 Allergies Allergy/AdvReac Type Severity Reaction Status Date / Time latex Allergy Rash/Hives Verified 10/11/20 16:32 nickel Allergy Rash/Hives Verified 10/11/20 16:32 paper tape Allergy Rash/Hives Uncoded 07/10/20 06:52 Review of Systems ROS Statement: Those systems with pertinent positive or pertinent negative responses have been documented in the HPI. ROS Other: All systems not noted in ROS Statement are negative. Past Medical History Past Medical History: Cancer, COPD, GERD/Reflux, Hyperlipidemia, Hypertension, Sleep Apnea/CPAP/BIPAP, Thyroid Disorder Additional Past Medical History / Comment(s): positive covid 06-06-20,migraines, insomnia, no longer uses C-pap machine after wt loss, severe vertigo- uses cane.,states low heart rate., hx colon polyp., chronic back pain, aortic aneurysm 4.5 cm , Breast cancer (surgery 06/2019)-no radiation had oral chemo, Sleeve Gastrectomy (04/2018)., internal hemorrhoids,Spinal stimulator-posterior lower left hip area. History of Any Multi-Drug Resistant Organisms: None Reported Past Surgical History: Bariatric Surgery, Bladder Surgery, Breast Surgery, Orthopedic Surgery Additional Past Surgical History / Comment(s): eye surgery, left thumb surgery, EGD, Double Mastectomy (06/2019), panniculectomy (07/10/20). sleeve gastrectomy (04-20-18) Past Anesthesia/Blood Transfusion Reactions: No Reported Reaction, Motion Sickne ss Additional Past Anesthesia/Blood Transfusion Reaction / Comment(s): no hx blood transfusion Type of Cardiac Device: Loop Device Placement Date:: 2019 Past Psychological History: Depression, PTSD Smoking Status: Former smoker Past Alcohol Use History: Occasional, Rare Past Drug Use History: Marijuana - Past Family History Mother Family Medical History: Cancer Additional Family Medical History / Comment(s): mother at age 54 due to lung cancer. Patient has 2 aunts had breast cancer. Patient does not have any children. Father Family Medical History: Coronary Artery Disease (CAD), Diabetes Mellitus Additional Family Medical History / Comment(s): Father is alive with history of CAD, DM and is on home O2. She does not know any further details. Sister(s) Additional Family Medical History / Comment(s): ETOH the patient has 2 sisters and one half-sister with no major medical problems. Brother(s) Family Medical History: Coronary Artery Disease (CAD) Additional Family Medical History / Comment(s): Patient has one brother with history of coronary artery disease status post CABG in heart failure. General Exam - General Exam Comments Initial Comments: General: The patient is awake and alert, in no distress, and does not appear acutely ill. Eye: Pupils are equal, round and reactive to light, extra-ocular movements are intact. No nystagmus. There is normal conjunctiva bilaterally. No signs of icterus. Ears, nose, mouth and throat: There are moist mucous membranes and no oral lesions. Musculoskeletal: Normal ROM at the MCP, proximal IP joint however at distal its limited with both flexion/extension. Sensation intact. capillary refill < 3 seconds. small hematoma on the ventral aspect of finger pad.small avulsion near base of nail plate. Pulses equal bilaterally 2+. Neurological: A&O x 3. CN II-XII intact grossly, There are no obvious motor or sensory deficits. Coordination appears grossly intact. Speech is normal. Skin: Skin is warm and dry and no rashes or lesions are noted. Psychiatric: Cooperative, appropriate mood & affect, normal judgment. Limitations: no limitations Course Vital Signs 10/11/20 16:32 Temperature 98 F Pulse Rate 65 Respiratory 18 Rate Blood Pressure 156/80 O2 Sat by Pulse 96 Oximetry - Reevaluation(s) Reevaluation #1: After digital block using 1 mL of 1% lidocaine, it was irrigated wtih L of NS. patient tolerated procedure well. 10/11/20 Medical Decision Making - Medical Decision Making 59yo female presenting for cc of crush injury. no large laceration, skin avulsion suspected open fracture. pt xr reveals a mid distal phalanx fracture/oblique orientation. patient evaluted with attending who is agreeable to irrigation, sterile bandage, splinting and orthopedic follow-up with outpatient oral antibiotics. pt discharged appearing well, she is aware of risk of delayed f/u and encourage to call to make appointment tomorrow. Disposition Clinical Impression: Phalanx, distal fracture of finger, Open fracture, Tendon injury Disposition: HOME SELF-CARE Condition: Good Instructions (If sedation given, give patient instructions): Laceration (ED) Additional Instructions: Please use medication as discussed. Please follow-up with orthopedic surgery in the next 1-2 days. Must follow-up. Please return to emergency room if the symptoms increase or worsen or for any other concerns. Prescriptions: Cephalexin [Keflex] 500 mg PO Q6HR 10 Days #40 cap Is patient prescribed a controlled substance at d/c from ED?: No Referrals: Hugo Preston MD [Primary Care Provider] - 1-2 days Santiago Chery DO [Doctor of Osteopathic Medicine] - 1-2 days Time of Disposition: 18:26
--- NOTE | 2020-10-11 18:32 | XR ---
EXAMINATION TYPE: XR finger RT DATE OF EXAM: 10/11/2020 COMPARISON: NONE HISTORY: Crush injury TECHNIQUE: 3 views FINDINGS: There is oblique fracture of the distal end of the distal phalanx of the ring finger Of the right hand. There is soft tissue swelling. There is no dislocation. IMPRESSION: Acute fracture of the distal phalanx of the ring finger right hand with soft tissue swell ing and fragment displacement up to almost 2 mm.
== END 2020-10-11 18:36 | disposition home or self-care (01) ==
LOC: EC 16:30
DX: S62.636B Displaced fracture of distal phalanx of right little finger, initial encounter for open fracture (principal); J44.9 Chronic obstructive pulmonary disease, unspecified; E78.5 Hyperlipidemia, unspecified; F32.9 Major depressive disorder, single episode, unspecified; I10 Essential (primary) hypertension; K21.9 Gastro-esophageal reflux disease without esophagitis; Z86.16 Personal history of COVID-19; Z87.19 Personal history of other diseases of the digestive system; Z87.891 Personal history of nicotine dependence; Z85.3 Personal history of malignant neoplasm of breast; F12.90 Cannabis use, unspecified, uncomplicated; W23.0XXA Caught, crushed, jammed, or pinched between moving objects, initial encounter; Z23 Encounter for immunization
CPT/HCPCS: 73140; 90715; 99283; 90471; 96372 ×2; J0690; J2001

== ENCOUNTER 2021-07-10 10:44 | Day surgery (SDC) | payer MEDICARE, OTHER ==
[~2021-07-10 10:44] MED LIST changes: -ACETAMINOPHEN TAB 500 MG TAB PO PRN; -HEPARIN SODIUM,PORCINE 5,000 UNIT/ML 1 ML VIAL SQ PRN; +HYDROmorphone 0.5 MG/0.5 ML SYRINGE IVP PRN; +LACTATED RINGERS 1,000 ML IV SCH; -MIDAZOLAM 2 MG/2 ML VIAL IV PRN; +Pre Op ABX Message 1 EACH MISC MISCELLANE ONE; -SCOPOLAMINE 1.5MG/72HR PATCH TRANSDERM ONE
[2021-07-10] MEDS ORDERED: LIDOCAINE 1% INJ 10MG/ML (20 ML MDV) ONE (12:32)
[2021-07-10] MEDS ORDERED: MIDAZOLAM 2 MG/2 ML VIAL ONE (12:32)
[2021-07-10] MEDS ORDERED: NEOSTIGMINE 1 MG/ML 10 ML VIAL ONE (12:32)
[2021-07-10] MEDS ORDERED: fentaNYL (PF) 50 MCG/ML 2 ML AMP ONE (12:32)
[2021-07-10] MEDS ORDERED: HYDROmorphone (PF) 1 MG/ML ONE (12:32)
[2021-07-10] MEDS ORDERED: PROPOFOL 10 MG/ML 20 ML VIAL IV ONE (12:32)
[2021-07-10] MEDS ORDERED: GLYCOPYRROLATE 0.2 MG/ML 2 ML VIAL ONE (12:32)
[2021-07-10] MEDS ORDERED: SUCCINYLCHOLINE CHLORIDE 100 MG/5 ML SYR IV ONE (12:32)
[2021-07-10] MEDS ORDERED: ROCURONIUM 10 MG/ML (5 ML VIAL) IV ONE (12:32)
[2021-07-10] MEDS ORDERED: SODIUM CHLORIDE 0.9% 100 ML with ceFAZolin 2,000 MG IV ONE ×2 (12:36)
[2021-07-10 14:48] VITALS: TEMP 97.5
[2021-07-10] MEDS ORDERED: ARTIFICIAL TEARS OINTMENT 3.5 GM TUBE RIGHT EYE STA (16:11)
[2021-07-10] MEDS ORDERED: LIDOCAINE RIGHT EYE PRN (16:12)
[2021-07-10 16:29] VITALS: RESP 16
[2021-07-10 16:30] VITALS: BP 170/91; PULSE 78
--- NOTE | 2021-07-10 17:16 | OP ---
OPERATIVE REPORT PREOPERATIVE DIAGNOSIS: 1. 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 2. Personal history of breast cancer. 3. Acquired loss of right and left breast secondary to mastectomy. POSTOPERATIVE DIAGNOSIS: 1. 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 2. Personal history of breast cancer. 3. Acquired loss of right and left breast secondary to mastectomy. OPERATIVE PROCEDURE: Excision of right and left anterolateral chest wall deformities and mastectomy scars with closure via local advancement flaps, 448 square cm. OPERATIVE INDICATIONS: The patient is a 60-year-old female with history of breast cancer treated in 2019 with bilateral mastectomy. The patient did not desire reconstructive surgery. She has been left with deformities of the chest wall with redundant skin and subcutaneous tissue, denting and scarring from the mastectomy healing process that she finds are causing increasing pain and discomfort. She is also unable to wear a bra with prosthesis due to the contour irregularities. She desires her anterolateral chest russo to be flat so she can be better suited to wear a prosthesis when needed. She understands her potential risks and complications of the surgery proposed and has requested I perform the surgery. OPERATIVE PROCEDURE SUMMARY: The patient was seen in the preoperative area, where the procedure was reviewed and all questions answered. Markings were placed. The patient was then transported to the operating room, where she was placed in supine position. Following induction of general endotracheal anesthesia, the patient was prepped and draped in the usual fashion. The right-sided mastectomy scar deformity area measured 27 x 5 square cm and on the left 27 x 6 square cm. These areas were marked for excision in both the right and left side, now excised, making incision with a 10 blade scalpel and then using cautery to excise the deformities, including skin and subcutaneous tissue and scar tissue. Each side was sent to Pathology separately for permanent analysis. Advancement flaps were now created for closure. However, to obtain smoothness required excision of additional tissue to eliminate contour irregularities and deformities. This left the wound size on the right 28 x 7 square cm and on the left 28 x 9 square cm. Skin and subcutaneous tissue flaps were now elevated for closure through the inferior incision site. Skin and subcutaneous tissue flaps were elevated off the chest wall tissue, muscle fascia layers with cauterization. Some undermining was required on the cephalad portion of the incision to decrease tension. Once this was completed, irrigation was performed. Hemostasis was maintained with cautery and excellent hemostasis was obtained. 19 round Vega channel drains were inserted in the surgical gagnon underneath the flap areas and brought through separate stab incisions in the right or left anterior chest wall. Each drain was sutured in placed with 2-0 Prolene. The right- and left-sided advancement flaps were now advanced in cephalad fashion, securing Callum's layer using interrupted 3-0 and 2-0 Vicryl sutures to distribute tension. The deep dermis was then closed on each side using inverted interrupted 4-0 Monocryl and then the superficial dermis and epidermal layers closed with subcuticular short running 3-0 Prolene sutures. Drains were now connected to closed-bulb suction, patent. Surgical field was cleansed with saline, dried and covered with postoperative bandages using 4x4s, Kerlix, roll gauze that was flattened out, ABD pads, all secured with 3M Medipore tape position a size 3 mammary support for additional compression. The patient was then awakened from her anesthetic, extubated in the operating room and transferred to the recovery room in good condition with stable vital signs. The estimated blood loss was 50 mL. There were no complications. MMODL / IJN: [id number] /
== END 2021-07-10 16:38 | disposition home or self-care (01) ==
LOC: OR 10:44
PROVIDERS: ATTEND Plastic Surgery
DX: Z85.3 Personal history of malignant neoplasm of breast (principal); Z20.822 Contact with and (suspected) exposure to COVID-19
CPT/HCPCS: 14301; 14302; 87635; J2250; J1100; J2710; J2405; J0690; J2001; J3010; J1170; J0330; J2704; 88305

== ENCOUNTER 2021-10-09 10:54 | Observation (INO) | payer MEDICARE, OTHER ==
[2021-10-09 11:34] LABS: Basophils # (A) 0.1 k/uL (0-0.2); Basophils % (A) 1 %; Eosinophils # (A) 0.2 k/uL (0-0.7); Eosinophils % (A) 3 %; HGB 14.8 gm/dL (11.4-16.0); Lymphocytes # (A) 1.5 k/uL (1.0-4.8); Lymphocytes % (A) 24 %; MCH 31.8 pg (25.0-35.0); MCHC 31.5 g/dL (31.0-37.0); MCV 100.9 fL (80.0-100.0); Mean Platelet Volume 7.8; Monocytes # (A) 0.3 k/uL (0-1.0); Monocytes % (A) 4 %; Neutrophils # (A) 4.3 k/uL (1.3-7.7); Neutrophils % (A) 67 %; Platelet Count 243 k/uL (150-450); RBC 4.65 m/uL (3.80-5.40); RDW 12.7 % (11.5-15.5); WBC 6.5 k/uL (3.8-10.6)
[2021-10-09 11:45] LABS: Albumin 4.5 g/dL (3.5-5.0); Calcium 9.1 mg/dL (8.4-10.2); Potassium 4.5 mmol/L (3.5-5.1); Total Bilirubin 0.9 mg/dL (0.2-1.3); Total Protein 7.6 g/dL (6.3-8.2)
[2021-10-09 11:56] LABS: INR 0.9 (<1.2); Partial Thromboplastin Time 24.1 sec (22.0-30.0); Prothrombin Time 10.1 sec (9.0-12.0)
--- NOTE | 2021-10-09 13:24 | XR ---
EXAMINATION TYPE: XR chest 2V DATE OF EXAM: 10/09/2021 COMPARISON: Chest x-ray 12/26/2019 HISTORY: Pain TECHNIQUE: Frontal and lateral views of the chest are obtained. FINDINGS: There is no focal air space opacity, pleural effusion, or pneumothorax seen. The cardiac silhouette size is within normal limits. There is a loop recorder over the left chest, thoracic cord stimulator in the midthoracic spine level. Aorta is dense. The osseous structures are intact. IMPRESSION: No acute cardiopulmonary process.
[2021-10-09] MEDS ORDERED: SODIUM CHLORIDE 0.9% 1,000 ML IV STA (15:14)
[2021-10-09] MEDS ORDERED: ONDANSETRON 4 MG/2 ML VIAL IVP STA (15:14)
[2021-10-09] MEDS ORDERED: KETOROLAC 15 MG/ML 1 ML VIAL IVP STA (15:14)
--- NOTE | 2021-10-09 16:29 | CT ---
EXAMINATION TYPE: CT angio chest DATE OF EXAM: 10/09/2021 COMPARISON: CTA chest December 26, 2019 HISTORY: Chest pain, hx aortic aneurysm. Concern for aortic dissection. CT DLP: 933.4 mGycm. Automated Exposure Control for Dose Reduction was Utilized. CONTRAST: CTA scan of the thorax is performed without and with IV Contrast, patient injected with 100 mL of Iso donavon 370, aneurysm protocol. 3D reconstructed images are created on an independent workstation and rev iewed. FINDINGS: LUNGS: Mild underlying emphysematous changes redemonstrated. New areas of small foci of groundglass o pacity in the posterior aspect right upper lobe for reference axial image 27. Mild linear atelectasis and/or scarring in both bases above the diaphragm. Near level of prior groundglass nodule there is n ow 4 mm solid nodule axial image 46. No pleural effusion or pneumothorax seen bilaterally. MEDIASTINUM: Noncontrast images show no suspicious hyperdense material to suggest intramural hematoma . Satisfactory enhancement of the central pulmonary arteries. Prominent right pulmonary artery sugges ting underlying pulmonary artery hypertension redemonstrated. Borderline ascending aortic aneurysm up to 3.9 cm axial image 42. No linear hypodensity to suggest aortic dissection. Normal three-vessel o rigin from aortic arch. There are no new greater than 1 cm hilar or mediastinal lymph nodes. No car diomegaly. Tiny pericardial effusion is stable. Thyroid gland is small in size or atrophic. OTHER: Surgical changes from gastric sleeve with small to moderate size hiatal hernia are redemonstra genia. Slight underlying scoliotic curvature again seen. New stimulator device in the thoracic spinal c anal is noted. IMPRESSION: 1. No thoracic aortic dissection. Borderline 3.9 cm ascending aortic aneurysm unchanged from prior. 2. New areas of multifocal groundglass opacity in the posterior right upper lobe could reflect develo ping acute infiltrate and/or edema. Correlate clinically.
--- NOTE | 2021-10-09 16:29 | ED ---
Chest Pain HPI - General Chief Complaint: Chest Pain Stated Complaint: Chest pain Time Seen by Provider: 10/09/21 14:58 Source: patient Mode of arrival: ambulatory Limitations: no limitations - History of Present Illness Initial Comments: Patient is a 60-year-old female with history of aortic aneurysm, metastatic breast cancer to the bone, hypertension, hyperlipidemia presenting with chief complaint of chest pain. Patient states that the pain started 1 hour prior to arrival while she was taking a shower. It is located on the right side and radiates down to the arm into the back. Patient states that at first she thought it was indigestion, but as time went on in the pain did not subside she presented to ER. Patient reports no difference in the pain with position or exertion. Patient states that since arriving to the ER she has also developed a migraine, which is consistent with her typical migraine headaches. She admits to some nausea with no vomiting. No abdominal pain, diarrhea, shortness of breath, vision or hearing changes, weakness, palpitations, fever, chills, URI- like symptoms, cough, hemoptysis, hematochezia, melena, hematemesis, dysuria, hematuria, urgency, frequency. - Related Data Home Medications Medication Instructions Recorded Confirmed traZODone HCL [Desyrel] 100 mg PO HS 11/21/14 10/09/21 Montelukast [Singulair] 10 mg PO HS 12/27/15 10/09/21 Atorvastatin [Lipitor] 10 mg PO HS 11/24/17 10/09/21 Baclofen [Lioresal] 10 mg PO BID 05/25/18 10/09/21 Omeprazole [PriLOSEC] 20 mg PO BID 06/22/18 10/09/21 SUMAtriptan SUCCINATE [Imitrex] 100 mg PO BID PRN 06/22/18 10/09/21 Meclizine [Antivert] 25 mg PO BID 02/05/19 10/09/21 Vitamin C/Biotin [Hair, Skin and 1 tab PO BID 03/04/19 10/09/21 Nails Chew] Anastrozole [Arimidex] 1 mg PO DAILY 10/22/19 10/09/21 Cyanocobalamin [Vitamin B-12] 1,500 mcg PO DAILY 10/22/19 10/09/21 Ferrous Sulfate [Iron (65 MG 325 mg PO DAILY 10/22/19 10/09/21 Elemental)] L.acidoph,Paracasei, B.lactis 1 cap PO DAILY 10/22/19 10/09/21 [Probiotic] Terazosin [Hytrin] 1 mg PO HS 10/22/19 10/09/21 diphenhydrAMINE [Benadryl] 25 mg PO DAILY 10/22/19 10/09/21 Multivit with Calcium,Iron,Min 1 tab PO BID 11/18/19 10/09/21 [Women's Multivitamin] Magnesium 500 mg PO DAILY 06/30/20 10/09/21 Aspirin EC [Ecotrin Low Dose] 81 mg PO DAILY 10/09/21 10/09/21 Calcium Plus 1,000 mg PO DAILY 10/09/21 10/09/21 Calcium Plus 500 mg PO HS 10/09/21 10/09/21 Cholecalciferol [Vitamin D3 (125 125 mcg PO DAILY 10/09/21 10/09/21 Mcg = 5000 Iu)] Cyclobenzaprine [Flexeril] 10 mg PO BID 10/09/21 10/09/21 Immune Mihaela- C 1,000 mg PO DAILY 10/09/21 10/09/21 Levothyroxine Sodium [Synthroid] 112 mcg PO DAILY 10/09/21 10/09/21 Oxitrim 1 tab PO BID 10/09/21 10/09/21 Potassium Gluconate [Potassium 99 mg PO HS 10/09/21 10/09/21 Gluconate ER] Prochlorperazine [Compazine] 10 mg PO Q6H PRN 10/09/21 10/09/21 Varenicline [Chantix] 1 mg PO DAILY 10/09/21 10/09/21 Vit C/E/Zn/Coppr/Lutein/Zeaxan 1 cap PO DAILY 10/09/21 10/09/21 [Preservision Areds 2 Softgel] rOPINIRole HCL [Requip] 0.5 mg PO HS 10/09/21 10/09/21 Allergies Allergy/AdvReac Type Severity Reaction Status Date / Time latex Allergy Rash/Hives Verified 10/09/21 11:00 nickel Allergy Rash/Hives Verified 10/09/21 11:00 paper tape Allergy Rash/Hives Uncoded 10/09/21 11:00 Review of Systems ROS Statement: Those systems with pertinent positive or pertinent negative responses have been documented in the HPI. ROS Other: All systems not noted in ROS Statement are negative. EKG Findings - EKG Comments: EKG Findings:: Sinus rhythm. Rate of 80. Possible right ventricular hypertrophy. AK interval 157. QRS duration 98. This EKG was also shown to and interpreted by my attending physician Past Medical History Past Medical History: Cancer, COPD, GERD/Reflux, Hyperlipidemia, Hypertension, Sleep Apnea/CPAP/BIPAP, Thyroid Disorder Additional Past Medical History / Comment(s): positive covid 06-06-20. migraines. No C-pap. Severe vertigo- uses cane. States low heart rate. hx colon polyp. chronic back pain. aortic aneurysm 4.5 cM. Breast cancer (surgery 06/2019)-no radiation had oral chemo. Sleeve Gastrectomy (04/2018). Internal hemorrhoids. Spinal stimulator-posterior lower left hip area. History of Any Multi-Drug Resistant Organisms: None Reported Past Surgical History: Bariatric Surgery, Bladder Surgery, Breast Surgery, Orthopedic Surgery Additional Past Surgical History / Comment(s): HEART LOOP MONITOR. Eye surgery.Left thumb surgery. EGD. Double Mastectomy (06/2019). Panniculectomy (07/10/20). Sleeve gastrectomy (04-20-18) Past Anesthesia/Blood Transfusion Reactions: No Reported Reaction, Motion Sickness Additional Past Anesthesia/Blood Transfusion Reaction / Comment(s): no hx blood transfusion Type of Cardiac Device: Loop Device Placement Date:: 2019 Past Psychological History: Depression, PTSD Smoking Status: Former smoker Past Alcohol Use History: Rare Past Drug Use History: Marijuana - Past Family History Mother Family Medical History: Cancer Additional Family Medical History / Comment(s): mother at age 54 due to lung cancer. Patient has 2 aunts had breast cancer. Patient does not have any children. Father Family Medical History: Coronary Artery Disease (CAD), Diabetes Mellitus Additional Family Medical History / Comment(s): Father is alive with history of CAD, DM and is on home O2. She does not know any further details. Sister(s) Additional Family Medical History / Comment(s): ETOH the patient has 2 sisters and one half-sister with no major medical problems. Brother(s) Family Medical History: Coronary Artery Disease (CAD) Additional Family Medical History / Comment(s): Patient has one brother with history of coronary artery disease status post CABG in heart failure. General Exam Limitations: no limitations General appearance: alert, in no apparent distress Head exam: Present: atraumatic, normocephalic, normal inspection Eye exam: Present: normal appearance, EOMI. Absent: scleral icterus Neck exam: Present: normal inspection Respiratory exam: Present: normal lung sounds bilaterally. Absent: respiratory distress, wheezes, rales, rhonchi, stridor Cardiovascular Exam: Present: regular rate, normal rhythm, normal heart sounds. Absent: systolic murmur, diastolic murmur, rubs, gallop, clicks Neurological exam: Present: alert, oriented X3, CN II-XII intact Psychiatric exam: Present: normal affect, normal mood Skin exam: Present: warm, dry, intact, normal color. Absent: rash Course Vital Signs 10/09/21 10:58 Temperature 97.9 F Pulse Rate 81 Respiratory 22 Rate Blood Pressure 147/87 O2 Sat by Pulse 95 Oximetry Chest [facility] Patient is a 60-year-old female with history of aortic aneurysm, metastatic breast cancer, hypertension, hyperlipidemia presenting with chief complaint of chest pain. Patient states that pain is located on the right side with radiation down the arm into the back. It started approximately 1 hour prior to presentation. It is a sharp stabbing burning pain. She is also complaining of headache, nausea, and dry cough. On examination lungs are clear to auscultation and heart sounds are normal. No focal neurological deficits. Patient was given 1 L fluid bolus, IV Toradol and Zofran. EKG shows sinus rhythm with rate of 80. Possible right ventricular hypertrophy. No acute ST or T-wave abnormalities. 2 negative troponins. Negative Covid test. Chest x-ray is unremarkable. CTA of the chest shows no thoracic aortic dissection. Borderline 3.9 cm ascending aortic aneurysm unchanged from prior study. There are also new areas of multifocal groundglass opacity in the posterior right upper lobe could reflect developing acute infiltrate and/or edema. On reevaluation patient states that her symptoms are improving. Her headache has mostly improved, her chest pain is minimal which is an improvement from the time of 10 pain she experienced upon arrival. I spoke with Dr. Hammond who agreed to admit the patient for observation. I consulted cardiology. Timed troponin was ordered. I explained the plan to the patient, she conveyed verbal understanding and agreed to the plan. I discussed this case with my attending Dr. Rider. Disposition Clinical Impression: Chest pain Disposition: ADMITTED IP TO THIS [facility] Time of Disposition: 18:20 Decision to Admit Reason: Admit from EC Decision Date: 10/09/21 Decision Time: 18:20
[2021-10-09] MEDS ORDERED: IBUPROFEN 400 MG TAB PO PRN (17:44)
[2021-10-09] MEDS ORDERED: ACETAMINOPHEN TAB 325 MG TAB PO PRN (17:44)
[2021-10-09] MEDS ORDERED: NALOXONE 0.4 MG/ML 1 ML VIAL IV PRN (17:44)
[2021-10-09] MEDS ORDERED: SUMAtriptan succinate 50 MG TAB PO PRN (23:00)
[2021-10-10] MEDS ORDERED: PROCHLORPERAZINE 10 MG TAB PO PRN
[2021-10-10] MEDS ORDERED: LEVOTHYROXINE 112 MCG TAB PO SCH (06:30)
[2021-10-10] MEDS ORDERED: CYANOCOBALAMIN 500 MCG TAB PO SCH (07:30)
--- NOTE | 2021-10-10 07:59 | P.HPIM ---
History of Present Illness H&P Date: 10/09/21 HISTORY OF PRESENT ILLNESS 60-year-old female with history of metastasis to take rest cancer to the bone was known to have history of aortic aneurysm, hypertension, hyperlipidemia, chronic depression, chronic migraine as well who seen oncology on regular basis seen Dr. Hugo Preston who was in the hospital last June 2020 for panniculitis post panniculectomy, patient has been doing well still last 48 hours when developed to have significant midsternal chest discomfort located in the midsternal slightly to the left side radiating to her left shoulder not associated with any exertion leaning on her left side or pressing of the rib cage, symptom are slightly but better when she laid down on the right side, not aggravated by deep inspiration. Declined any history of trauma to the rib recently. Patient apparently had history of chest pain 2 years ago was hospit alized seen director advanced afterward had negative stress test. Patient had slightly increased risk factor for coronary artery disease her troponin was negative EKG did not show any major abnormality at the time, rest of her labs including normal CBC, chemistry PT/INR. COVID-19 test was negative. Chest x- ray was negative for infiltrate, CTA showed ascending aortic aneurysm 3.9 cm with no sign of dissection the patient had new area of multifocal groundglass opacification in the posterior right upper lobe could reflect development of new infiltrate or pneumonia. Even though patient does not have any clinical sign of pneumonia. Highly recommend quick follow-up. Review of Systems Constitutional: No fever, no chills, no night sweats. No weight change. No weakness, fatigue or lethargy. No daytime sleepiness. EENT: No headache. No blurred vision or double vision, no loss of vision. No loss of Hearing, no ringing in the ears, reports chronic dizziness. No nasal drainage or congestion. No epistaxis. No sore throat. Lungs: No shortness of breath, cough, no sputum production. No wheezing. Cardiovascular: Reports chest pain, no lower extremity edema. No palpitations. No paroxysmal nocturnal dyspnea. No orthopnea. No lightheadedness or dizziness. No syncopal episodes. Abdominal: No abdominal pain. No nausea, vomiting. No diarrhea. No constipation. No bloody or tarry stools.. No loss of appetite. Genitourinary: No dysuria, increased frequency, urgency. No urinary retention. Musculoskeletal: No myalgias. No muscle weakness, no gait dysfunction, no frequent falls. No back pain. No neck pain. Integumentary: No wounds, no lesions. No rash or pruritus. No unusual bruising. No change in hair or nails. Neurologic: No aphasia. No facial droop. No change in mentation. No head injury. No headache. No paralysis. No paresthesia. Psychiatric: No depression. No anxiety. No mood swings. Endocrine: No abnormal blood sugars. No weight change. No excessive sweating or thirst. No cold intolerance. 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 FAMILY HISTORY Does not know much about her dad. Mother age 54 from lung cancer, had 1 b rother from pericarditis complication of Tamponad, 3 sister are all living and well patient does not have any children. Physical Examination Gen: This is a morbidly obese 59-year-old female. She is sitting up in bed and appears to be comfortable. HEENT: Head is atraumatic, normocephalic. Pupils equal, round. Sclerae is anicteric. NECK: Supple. No JVD. No lymphadenopathy. No thyromegaly. LUNGS: Clear to auscultation. No wheezes. Positive significant discomfort and left intercostal with significant costochondritis, no sign of for fracture at the time no rash on the outer part consistent with shingles.. HEART: Regular rate and rhythm. No murmur. No chest wall tenderness. ABDOMEN: Soft. Bowel sounds are present. No masses. No tenderness. EXTREMITIES: Trace bilat pedal edema. No calf tenderness. NEUROLOGICAL: Patient is awake, alert and oriented x3. Cranial nerves 2 through 12 are grossly intact. ASSESSMENT AND PLAN 1. Atypical chest pain: Patient had slightly increased risk factor for coronary disease, admit patient to the hospital CK with troponin times 3 repeat done, consult cardiology will request echocardiogram to exclude any other possibility of pericardial effusion, or any structural abnormality. 2 newly development off multifocal groundglass opacification with the possibility of infiltrate or pneumonia, we'll treat patient at this point with albuterol inhaler, along with coverage for atypical pneumonia with azithromycin and Rocephin watch is not hospital and probably azithromycin when she goes home. Smaller dose of steroid can be use like Medrol Dosepak. 3 advance breast cancer with metastasis: Patient has been seen oncology on regular basis will continue her current treatment management. 4 hyperlipidemia: Resume atorvastatin 10 mg a day. 5 hypothyroidism: Continue patient on levothyroxine 112 g daily. 6 chronic migraine: Has been on Imitrex along with Tylenol with Codeine on an as-needed basis. 7 severe GERD and hiatal hernia: Has been on Prilosec 20 mg twice a day. 8 chronic history of depression: Has been on does reveal 100 mg daily at bedtime. 9 chronic restless leg syndrome: Has been on Requip 0.5 mg daily at bedtime. 10 chronic iron deficiency anemia: Patient remain on iron supplement. 11 aortic aneurysm: Mostly ascending aortic aneurysm has been stable no change. 12 COPD: Patient can benefit from DuoNeb and Pulmicort at this point we watch patient for any need for oxygen. 13 chronic history of tobacco dependency: Patient had quit smoking a few years ago no need for any nicotine patch patient was on Chantix with her last admission. 14 DVT prophylaxis: Patient will be on heparin subcutaneous. 15 GI prophylaxis: Continue PPI. 16 COVID-19 infection: Not present was tested. CODE STATUS: Full code. Admit patient to the hospital for observation status for 24 hours hold. Past Medical History Past Medical History: Cancer, COPD, GERD/Reflux, Hyperlipidemia, Hypertension, Sleep Apnea/CPAP/BIPAP, Thyroid Disorder Additional Past Medical History / Comment(s): positive covid 1222-20. migraines. No C-pap. Severe vertigo- uses cane. States low heart rate. hx colon polyp. chronic back pain. aortic aneurysm 4.5 cM. Breast cancer (surgery 06/2019)-no radiation had oral chemo. Sleeve Gastrectomy (04/2018). Internal hemorrhoids. Spinal stimulator-posterior lower left hip area. History of Any Multi-Drug Resistant Organisms: None Reported Past Surgical History: Bariatric Surgery, Bladder Surgery, Breast Surgery, Orthopedic Surgery Additional Past Surgical History / Comment(s): HEART LOOP MONITOR. Eye pebbles gokul.Left thumb surgery. EGD. Double Mastectomy (06/2019). Panniculectomy (07/10/20). Sleeve gastrectomy (04-20-18) Past Anesthesia/Blood Transfusion Reactions: No Reported Reaction, Motion Sickness Additional Past Anesthesia/Blood Transfusion Reaction / Comment(s): no hx blood transfusion Type of Cardiac Device: Loop Device Placement Date:: 2019 Past Psychological History: Depression, PTSD Smoking Status: Former smoker Past Alcohol Use History: Rare Past Drug Use History: Marijuana - Past Family History Mother Family Medical History: Cancer Additional Family Medical History / Comment(s): mother at age 54 due to lung cancer. Patient has 2 aunts had breast cancer. Patient does not have any children. Father Family Medical History: Coronary Artery Disease (CAD), Diabetes Mellitus Additional Family Medical History / Comment(s): Father is alive with history of CAD, DM and is on home O2. She does not know any further details. Sister(s) Additional Family Medical History / Comment(s): ETOH the patient has 2 sisters and one half-sister with no major medical problems. Brother(s) Family Medical History: Coronary Artery Disease (CAD) Additional Family Medical History / Comment(s): Patient has one brother with history of coronary artery disease status post CABG in heart failure. Medications and Allergies Home Medications Medication Instructions Recorded Confirmed Type traZODone HCL [Desyrel] 100 mg PO HS 11/21/14 10/09/21 History Montelukast [Singulair] 10 mg PO HS 12/27/15 10/09/21 History Atorvastatin [Lipitor] 10 mg PO HS 11/24/17 10/09/21 History Baclofen [Lioresal] 10 mg PO BID 05/25/18 10/09/21 History Omeprazole [PriLOSEC] 20 mg PO BID 06/22/18 10/09/21 History SUMAtriptan SUCCINATE [Imitrex] 100 mg PO BID PRN 06/22/18 10/09/21 History Meclizine [Antivert] 25 mg PO BID 02/05/19 10/09/21 History Vitamin C/Biotin [Hair, Skin and 1 tab PO BID 03/04/19 10/09/21 History Nails Chew] Anastrozole [Arimidex] 1 mg PO DAILY 10/22/19 10/09/21 History Cyanocobalamin [Vitamin B-12] 1,500 mcg PO DAILY 10/22/19 10/09/21 History Ferrous Sulfate [Iron (65 MG 325 mg PO DAILY 10/22/19 10/09/21 History Elemental)] L.acidoph,Paracasei, B.lactis 1 cap PO DAILY 10/22/19 10/09/21 History [Probiotic] Terazosin [Hytrin] 1 mg PO HS 10/22/19 10/09/21 History diphenhydrAMINE [Benadryl] 25 mg PO DAILY 10/22/19 10/09/21 History Multivit with Calcium,Iron,Min 1 tab PO BID 11/18/19 10/09/21 History [Women's Multivitamin] Magnesium 500 mg PO DAILY 06/30/20 10/09/21 History Aspirin EC [Ecotrin Low Dose] 81 mg PO DAILY 10/09/21 10/09/21 History Calcium Plus 1,000 mg PO DAILY 10/09/21 10/09/21 History Calcium Plus 500 mg PO HS 10/09/21 10/09/21 History Cholecalciferol [Vitamin D3 (125 125 mcg PO DAILY 10/09/21 10/09/21 History Mcg = 5000 Iu)] Cyclobenzaprine [Flexeril] 10 mg PO BID 10/09/21 10/09/21 History Immune Mihaela- C 1,000 mg PO DAILY 10/09/21 10/09/21 History Levothyroxine Sodium [Synthroid] 112 mcg PO DAILY 10/09/21 10/09/21 History Oxitrim 1 tab PO BID 10/09/21 10/09/21 History Potassium Gluconate [Potassium 99 mg PO HS 10/09/21 10/09/21 History Gluconate ER] Prochlorperazine [Compazine] 10 mg PO Q6H PRN 10/09/21 10/09/21 History Varenicline [Chantix] 1 mg PO DAILY 10/09/21 10/09/21 History Vit C/E/Zn/Coppr/Lutein/Zeaxan 1 cap PO DAILY 10/09/21 10/09/21 History [Preservision Areds 2 Softgel] rOPINIRole HCL [Requip] 0.5 mg PO HS 10/09/21 10/09/21 History Allergies Allergy/AdvReac Type Severity Reaction Status Date / Time latex Allergy Rash/Hives Verified 10/09/21 11:00 nickel Allergy Rash/Hives Verified 10/09/21 11:00 paper tape Allergy Rash/Hives Uncoded 10/09/21 11:00 Physical Exam Vitals: Vital Signs Temp Pulse Resp BP Pulse Ox 10/09/21 22:10 97.2 F L 77 17 101/63 94 L 10/09/21 10:58 97.9 F 81 22 147/87 95 Intake and Output 10/09/21 10/09/21 10/09/21 06:59 14:59 22:59 Other: Weight 81.647 kg Results CBC & Chem 7: 10/09/21 11:16 10/09/21 11:16 Labs: Abnormal Lab Results - Last 24 Hours (Table) 10/09/21 Range/Units 11:16 Hct 47.0 H (34.0-46.0) % MCV 100.9 H (80.0-100.0) fL
[2021-10-10] MEDS ORDERED: DOBUTamine DRIP for NUC MED 500 MG in DEXTROSE/WATER 1 250ML.BAG IV PRN (08:15)
[2021-10-10] MEDS ORDERED: SODIUM CHLORIDE 0.9% 1,000 ML IV STA (08:15)
[2021-10-10] MEDS ORDERED: ASPIRIN 81 MG PO SCH (09:00)
[2021-10-10] MEDS ORDERED: MULTIVITAMINS, THERA 1 EACH TAB PO SCH (09:00)
[2021-10-10] MEDS ORDERED: [UNRECOGNIZED DRUG - OTHER] PO SCH (09:00)
[2021-10-10] MEDS ORDERED: BACLOFEN 10 MG TAB PO SCH (09:00)
[2021-10-10] MEDS ORDERED: LACTOBACILLUS ACIDOPH & BULGAR 1 EACH PACKET PO SCH (09:00)
[2021-10-10] MEDS ORDERED: AZITHROMYCIN 500 MG TAB PO SCH (09:00)
[2021-10-10] MEDS ORDERED: CALCIUM CARBONATE 500 MG CHEWABLE PO SCH ×2 (09:00→21:00)
[2021-10-10] MEDS ORDERED: CYCLOBENZAPRINE 10 MG TAB PO SCH (09:00)
[2021-10-10] MEDS ORDERED: PANTOPRAZOLE 40 MG TABLET PO SCH (09:00)
[2021-10-10] MEDS ORDERED: MAGNESIUM OXIDE 400 MG TAB PO SCH (09:00)
[2021-10-10] MEDS ORDERED: FERROUS SULFATE 325 MG TAB PO SCH (09:00)
[2021-10-10] MEDS ORDERED: diphenhydrAMINE 25 MG CAP PO SCH (09:00)
[2021-10-10] MEDS ORDERED: CHOLECALCIFEROL 125 MCG (5000 IU) TABLET PO SCH (09:00)
[2021-10-10] MEDS ORDERED: MECLIZINE 25 MG TAB PO SCH (09:00)
[2021-10-10] MEDS ORDERED: ANASTROZOLE 1 MG TAB PO SCH (09:00)
[2021-10-10] MEDS ORDERED: [UNRECOGNIZED DRUG - OTHER] PO SCH (09:00)
--- NOTE | 2021-10-10 10:24 | P.CRDCN ---
History of Present Illness History of present illness: HISTORY OF PRESENTING ILLNESS This is a pleasant 60-year-old female past medical history significant for aortic aneurysm, metastatic breast cancer to the bone s/p surgery 06/2019, C OPD, hypertension, dyslipidemia, hypothyroidism and obstructive sleep apnea, loop recorder implantation. She quit smoking tobacco daily in 2018 currently smokes marijuana on a regular basis, states she is social cigarettes smoker smokes about 1-2 cigarettes per week. She follows in the office with Dr. Rowe at [facility]. We have been asked to see in consultation for chest pain. Patient presents yesterday with chest discomfort. Started yesterday around 8AM. It was located midsternal. Radiated to her back. She describes it as stabbing. She had associated nausea and left arm tingling. She denies shortness of breath, diaphoresis, lightheadedness, dizziness, syncope or near syncope. She states her chest pain lasted until 8 PM last night. No specific aggravating or alleviating factors. Her chest pain has resolved. She denies history of CAD, PR, Stroke, diabetes. She currently smokes about 12 cigarettes per week. Currently smokes medical marijuana. She denies any alcohol use. Denies illicit drug use. DIAGNOSTICS EKG reveals sinus mechanism with no acute ST or T wave abnormalities suggestive of ischemia. Telemetry tracings indicate sinus mechanism Chest xray no acute cardiopulmonary process. CT chest with no thoracic aortic dissection, borderline 3.9 cm Aortic aneurysm, new areas of multifocal, last bases in the posterior right upper lobe could reflect developing acute infiltrate or edema. Laboratory reviewed, CBC unremarkable, troponin negative 3, sodium 139, potassium 4.5, BUN 14, serum creatinine 0.9, covid-19 negative Current home cardiac medications include terazosin 1 mg nightly atorvastatin 10 mg nightly Dobutamine Stress Echo 12/2019 was negative for reversible ischemia Most recent available Echocardiogram 12/2019 reveals an EF of 5560 percent, mild mitral, mild tricuspid regurgitation REVIEW OF SYSTEMS At the time of my exam: Symptoms have resolved CONSTITUTIONAL: Denies fever or chills. CARDIOVASCULAR: Denies chest pain, shortness of breath, orthopnea, PND or palpitations. RESPIRATORY: Denies cough. GASTROINTESTINAL: Denies abdominal pain, diarrhea, constipation, nausea or vomiting. MUSCULOSKELETAL: Denies myalgias. NEUROLOGIC: Denies numbness, tingling or weakness. ENDOCRINE: Denies fatigue, weight change, polydipsia or polyurina. GENITOURINARY: Denies burning, hematuria or urgency with micturation. HEMATOLOGIC: Denies history of anemia or bleeding. PHYSICAL EXAMINATION Vital reviewed CONSTITUTIONAL: No apparent distress. HEENT: Head is normocephalic. Pupils are equal, round. Sclerae anicteric. Mucous membranes of the mouth are moist. No JVD. No carotid bruit. CHEST EXAMINATION: Lungs are clear to auscultation. No chest wall tenderness is noted on palpation or with deep breathing. HEART EXAMINATION: Regular rate and rhythm. S1, S2 heard. No murmurs, gallops or rub. ABDOMEN: Soft, nontender. Positive bowel sounds. EXTREMITIES: 2+ peripheral pulses, no lower extremity edema and no calf tenderness. NEUROLOGIC EXAMINATION: Patient is awake, alert and oriented x3. ASSESSMENT Chest pain, atypical for angina. An acute coronary event is from ruled out. Hypertension Dyslipidemia COPD Hypothyroidism Obstructive sleep apnea Current nicotine dependence PLAN An acute coronary event has been ruled out. Obtain dobutamine stress Echo test to assess for stress-induced cardiac ischemia. If stress test is normal she is stable for discharge from a cardiac perspective. Recommend close follow-up with her primary sheep boner. Thank you kindly for this consultation. Nurse Practitioner note has been reviewed, I agree with a documented findings and plan of care. Patient was seen and examined. Past Medical History Past Medical History: Cancer, COPD, GERD/Reflux, Hyperlipidemia, Hypertension, Sleep Apnea/CPAP/BIPAP, Thyroid Disorder Additional Past Medical History / Comment(s): positive covid 06-06-20. migraines. No C-pap. Severe vertigo- uses cane. States low heart rate. hx colon polyp. chronic back pain. aortic aneurysm 4.5 cM. Left breast cancer (surgery 06/2019)-no radiation had oral chemo. Sleeve Gastrectomy (04/2018). Internal hemorrhoids. Spinal stimulator-posterior lower left hip area. 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 Eye surgery.Left thumb surgery; surgery on right hand ring finger. EGD. Double Mastectomy (06/2019). Panniculectomy (07/10/20). Sleeve gastrectomy (04-20-18) Past Anesthesia/Blood Transfusion Reactions: No Reported Reaction Additional Past Anesthesia/Blood Transfusion Reaction / Comment(s): no hx blood transfusion Type of Cardiac Device: Loop Device Placement Date:: 2019 Past Psychological History: Depression, PTSD Smoking Status: Light tobacco smoker Past Alcohol Use History: Rare Additional Past Alcohol Use History / Comment(s): Pt states she is a social smoker and drinks alcohol occasionally and smokes medical marijuana. Past Drug Use History: Cocaine, Marijuana Additional Drug Use History / Comment(s): current marijuana daily. Pt states she was addicted to crack cocaine 20 years ago. - Past Family History Mother Family Medical History: Cancer Additional Family Medical History / Comment(s): mother at age 54 due to lung cancer. Patient has 2 aunts had breast cancer. Patient does not have any children. Father Family Medical History: Coronary Artery Disease (CAD), Diabetes Mellitus Additional Family Medical History / Comment(s): Father is alive with history of CAD, DM and is on home O2. She does not know any further details. Sister(s) Additional Family Medical History / Comment(s): ETOH the patient has 2 sisters and one half-sister with no major medical problems. Brother(s) Family Medical History: Coronary Artery Disease (CAD) Additional Family Medical History / Comment(s): Patient has one brother with history of coronary artery disease status post CABG in heart failure. Medications and Allergies Home Medications Medication Instructions Recorded Confirmed Type traZODone HCL [Desyrel] 100 mg PO HS 11/21/14 10/09/21 History Montelukast [Singulair] 10 mg PO HS 12/27/15 10/09/21 History Atorvastatin [Lipitor] 10 mg PO HS 11/24/17 10/09/21 History Baclofen [Lioresal] 10 mg PO BID 05/25/18 10/09/21 History Omeprazole [PriLOSEC] 20 mg PO BID 06/22/18 10/09/21 History SUMAtriptan SUCCINATE [Imitrex] 100 mg PO BID PRN 06/22/18 10/09/21 History Meclizine [Antivert] 25 mg PO BID 02/05/19 10/09/21 History Vitamin C/Biotin [Hair, Skin and 1 tab PO BID 03/04/19 10/09/21 History Nails Chew] Anastrozole [Arimidex] 1 mg PO DAILY 10/22/19 10/09/21 History Cyanocobalamin [Vitamin B-12] 1,500 mcg PO DAILY 10/22/19 10/09/21 History Ferrous Sulfate [Iron (65 MG 325 mg PO DAILY 10/22/19 10/09/21 History Elemental)] L.acidoph,Paracasei, B.lactis 1 cap PO DAILY 10/22/19 10/09/21 History [Probiotic] Terazosin [Hytrin] 1 mg PO HS 10/22/19 10/09/21 History diphenhydrAMINE [Benadryl] 25 mg PO DAILY 10/22/19 10/09/21 History Multivit with Calcium,Iron,Min 1 tab PO BID 11/18/19 10/09/21 History [Women's Multivitamin] Magnesium 500 mg PO DAILY 06/30/20 10/09/21 History Aspirin EC [Ecotrin Low Dose] 81 mg PO DAILY 10/09/21 10/09/21 History Calcium Plus 1,000 mg PO DAILY 10/09/21 10/09/21 History Calcium Plus 500 mg PO HS 10/09/21 10/09/21 History Cholecalciferol [Vitamin D3 (125 125 mcg PO DAILY 10/09/21 10/09/21 History Mcg = 5000 Iu)] Cyclobenzaprine [Flexeril] 10 mg PO BID 10/09/21 10/09/21 History Immune Mihaela- C 1,000 mg PO DAILY 10/09/21 10/09/21 History Levothyroxine Sodium [Synthroid] 112 mcg PO DAILY 10/09/21 10/09/21 History Oxitrim 1 tab PO BID 10/09/21 10/09/21 History Potassium Gluconate [Potassium 99 mg PO HS 10/09/21 10/09/21 History Gluconate ER] Prochlorperazine [Compazine] 10 mg PO Q6H PRN 10/09/21 10/09/21 History Varenicline [Chantix Continuing 1 mg PO DAILY 10/09/21 10/09/21 History Pack] Vit C/E/Zn/Coppr/Lutein/Zeaxan 1 cap PO DAILY 10/09/21 10/09/21 History [Preservision Areds 2 Softgel] rOPINIRole HCL [Requip] 0.5 mg PO HS 10/09/21 10/09/21 History Levofloxacin [Levaquin] 750 mg PO DAILY 6 Days #6 tab 10/10/21 Rx Allergies Allergy/AdvReac Type Severity Reaction Status Date / Time latex Allergy Rash/Hives Verified 10/09/21 11:00 nickel Allergy Rash/Hives Verified 10/09/21 11:00 paper tape Allergy Rash/Hives Uncoded 10/09/21 11:00 Physical Exam Vitals: Vital Signs Temp Pulse Pulse Resp BP BP Pulse Ox 10/10/21 07:08 97.6 F 73 16 139/85 97 10/10/21 02:48 98.1 F 68 18 143/90 93 L 10/10/21 01:35 66 10/09/21 23:26 66 20 10/09/21 23:13 97.7 F 66 20 143/87 96 10/09/21 22:10 97.2 F L 77 17 101/63 94 L 10/09/21 18:30 72 18 100/70 96 10/09/21 16:05 84 18 104/70 95 10/09/21 10:58 97.9 F 81 22 147/87 95 Intake and Output 10/09/21 10/10/21 10/10/21 22:59 06:59 14:59 Intake Total 0 Balance 0 Intake: Oral 0 Other: Voiding Method Toilet # Voids 1 Weight 81.647 kg Results 10/09/21 11:16 10/09/21 11:16 Cardiac Enzymes 10/09/21 10/09/21 10/09/21 Range/Units 11:16 11:16 15:46 AST 31 (14-36) U/L Troponin I <0.012 <0.012 (0.000-0.034) ng/mL 10/09/21 Range/Units 17:58 AST (14-36) U/L Troponin I <0.012 (0.000-0.034) ng/mL Coagulation 10/09/21 Range/Units 11:16 PT 10.1 (9.0-12.0) sec APTT 24.1 (22.0-30.0) sec CBC 10/09/21 Range/Units 11:16 WBC 6.5 (3.8-10.6) k/uL RBC 4.65 (3.80-5.40) m/uL Hgb 14.8 (11.4-16.0) gm/dL Hct 47.0 H (34.0-46.0) % Plt Count 243 (150-450) k/uL Comprehensive Metabolic Panel 10/09/21 Range/Units 11:16 Sodium 139 (137-145) mmol/L Potassium 4.5 (3.5-5.1) mmol/L Chloride 104 (98-107) mmol/L Carbon Dioxide 27 (22-30) mmol/L BUN 14 (7-17) mg/dL Creatinine 0.95 (0.52-1.04) mg/dL Glucose 97 (74-99) mg/dL Calcium 9.1 (8.4-10.2) mg/dL AST 31 (14-36) U/L ALT 30 (4-34) U/L Alkaline Phosphatase 105 (38-126) U/L Total Protein 7.6 (6.3-8.2) g/dL Albumin 4.5 (3.5-5.0) g/dL Current Medications Generic Name Dose Route Start Last Admin Trade Name Freq PRN Reason Stop Dose Admin Acetaminophen 650 mg 10/09/21 17:44 Acetaminophen Tab 325 Mg Tab PO Q6HR PRN Mild Pain or Fever > 100.5 Anastrozole 1 mg 10/10/21 09:00 Anastrozole 1 Mg Tab PO DAILY [facility] Aspirin 81 mg 10/10/21 09:00 Aspirin 81 Mg PO DAILY [facility] Atorvastatin Calcium 10 mg 10/10/21 21:00 Atorvastatin 10 Mg Tab PO HS [facility] Baclofen 10 mg 10/10/21 09:00 Baclofen 10 Mg Tab PO BID [facility] Calcium Carbonate/Glycine 1,000 mg 10/10/21 09:00 Calcium Carbonate 500 Mg Chewable PO DAILY [facility] Calcium Carbonate/Glycine 500 mg 10/10/21 21:00 Calcium Carbonate 500 Mg Chewable PO HS [facility] Cholecalciferol 125 mcg 10/10/21 09:00 Cholecalciferol 125 Mcg (5000 Iu) Tablet PO DAILY [facility] Cyanocobalamin 1,500 mcg 10/10/21 07:30 Cyanocobalamin 500 Mcg Tab PO W/BRKFST [facility] Cyclobenzaprine HCl 10 mg 10/10/21 09:00 Cyclobenzaprine 10 Mg Tab PO BID [facility] Diphenhydramine HCl 25 mg 10/10/21 09:00 Diphenhydramine 25 Mg Cap PO DAILY [facility] Doxazosin Mesylate 4 mg 10/10/21 21:00 Doxazosin 4 Mg Tab PO HS [facility] Ferrous Sulfate 325 mg 10/10/21 09:00 Ferrous Sulfate 325 Mg Tab PO DAILY [facility] Ibuprofen 400 mg 10/09/21 17:44 Ibuprofen 400 Mg Tab PO Q6HR PRN Mild Pain or Fever > 100.5 Lactobacillus Acidoph/Bulgaricus 1 each 10/10/21 09:00 Lactobacillus Acidoph & Bulgar 1 Each Packet PO DAILY [facility] Levothyroxine Sodium 112 mcg 10/10/21 06:30 10/10/21 05:44 Levothyroxine 112 Mcg Tab PO 112 mcg DAILY@0630 [facility] Administration Magnesium Oxide 200 mg 10/10/21 09:00 Magnesium Oxide 400 Mg Tab PO DAILY [facility] Meclizine HCl 25 mg 10/10/21 09:00 Meclizine 25 Mg Tab PO BID [facility] Montelukast Sodium 10 mg 10/10/21 21:00 Montelukast 10 Mg Tab PO [facility] Multivitamins 1 each 10/10/21 09:00 Multivitamins, Thera 1 Each Tab PO BID [facility] Naloxone HCl 0.2 mg 10/09/21 17:44 Naloxone 0.4 Mg/Ml 1 Ml Vial IV Q2M PRN Opioid Reversal Pantoprazole Sodium 40 mg 10/10/21 09:00 Pantoprazole 40 Mg Tablet PO BID [facility] Prochlorperazine Maleate 10 mg 10/10/21 00:00 Prochlorperazine 10 Mg Tab PO Q6H PRN Nausea Ropinirole HCl 0.5 mg 10/10/21 21:00 Ropinirole Hcl 0.25 Mg Tab PO [facility] Sumatriptan Succinate 100 mg 10/09/21 23:00 10/09/21 23:54 Sumatriptan Succinate 50 Mg Tab PO 100 mg BID PRN Administration pain Trazodone HCl 100 mg 10/10/21 21:00 Trazodone Hcl 100 Mg Tab PO [facility] Intake and Output 10/09/21 10/10/21 10/10/21 22:59 06:59 14:59 Intake Total 0 Balance 0 Intake: Oral 0 Other: Voiding Method Toilet # Voids 1 Weight 81.647 kg 10/09/21 11:16 10/09/21 11:16
[2021-10-10 10:49] LABS: Basophils # (A) 0.06 X 10*3/uL (0.00-0.10); Basophils % (A) 1.1 %; Eosinophils # (A) 0.19 X 10*3/uL (0.04-0.35); Eosinophils % (A) 3.4 %; HCT 43.3 % (37.2-46.3); HGB 13.6 g/dL (12.0-15.0); Immature Grans, Automated 0.4 %; Lymphocytes # (A) 1.49 X 10*3/uL (0.90-5.00); Lymphocytes % (A) 26.7 %; MCH 31.1 pg (27.0-32.0); MCHC 31.4 g/dL (32.0-37.0); MCV 98.9 fL (80.0-97.0); Mean Platelet Volume 9.7 fL (9.5-12.2); Monocytes # (A) 0.47 X 10*3/uL (0.20-1.00); Monocytes % (A) 8.4 %; NRBC Per 100 WBC 0 /100 WBCS (0.0-0.0); Neutrophils # (A) 3.36 X 10*3/uL (1.80-7.70); Platelet Count 219 X 10*3/uL (140-440); RBC 4.38 X 10*6/uL (4.10-5.20); RDW 12.8 % (11.5-14.5); WBC 5.59 X 10*3/uL (4.50-10.00)
[2021-10-10 12:01] LABS: African American GFR (CKD) 74.2 (60.0-200.0); Albumin 4.1 g/dL (3.8-4.9); Albumin/Globulin Ratio 1.82 (1.60-3.17); Anion Gap 12.6 mmol/L (10.00-18.00); BUN/Creat Ratio 13.4 Ratio (12.00-20.00); Blood Urea Nitrogen 12.9 mg/dL (9.0-27.0); Calcium 9.1 mg/dL (8.7-10.3); Carbon Dioxide 22.9 mmol/L (20.0-27.5); Globulin 2.3 g/dL (1.6-3.3); Potassium 4.4 mmol/L (3.5-5.5); Total Bilirubin 0.4 mg/dL (0.30-1.20); Total Protein 6.4 g/dL (6.2-8.2)
--- NOTE | 2021-10-10 12:22 | P.DS ---
Providers Date of admission: 10/09/21 18:29 Expected date of discharge: 10/10/21 Attending physician: Scott Hammond Consults: 10/09/21 17:45 Consult Physician Urgent Consulting Provider: [facility] Consult Reason/Comments: chest pain Do you want consulting provider notified?: Yes Primary care physician: Hugo Preston [facility] Course: HISTORY OF PRESENT ILLNESS 60-year-old female with history of metastasis to take rest cancer to the bone was known to have history of aortic aneurysm, hypertension, hyperlipidemia, chronic depression, chronic migraine as well who seen oncology on regular basis seen Dr. Hugo Preston who was in the hospital last June 2020 for panniculitis post panniculectomy, patient has been doing well still last 48 hours when developed to have significant midsternal chest discomfort located in the midsternal slightly to the left side radiating to her left shoulder not associated with any exertion leaning on her left side or pressing of the rib cage, symptom are slightly but better when she laid down on the right side, not aggravated by deep inspiration. Declined any history of trauma to the rib recently. Patient apparently had history of chest pain 2 years ago was hospitalized seen territory supervisor afterward had negative stress test. Patient had slightly increased risk factor for coronary artery disease her troponin was negative EKG did not show any major abnormality at the time, rest of her labs including normal CBC, chemistry PT/INR. COVID-19 test was negative. Chest x- ray was negative for infiltrate, CTA showed ascending aortic aneurysm 3.9 cm with no sign of dissection the patient had new area of multifocal groundglass opacification in the posterior right upper lobe could reflect development of new infiltrate or pneumonia. Even though patient does not have any clinical sign of pneumonia. Highly recommend quick follow-up. 10/10: Patient has been seen by cardiology and dobutamine stress test has been ordered to be done as an outpatient with her territory supervisor. Patient complains of cough and left-sided chest soreness. Patient started on Rocephin and azithromycin with plan to continue Levaquin outpatient for suspected pneumonia. Echocardiogram reveals suboptimal study. No significant abnormality on Doppler. LV size and systolic function is normal. Patient will be discharged home today in stable condition. DISCHARGE DIAGNOSES 1. Atypical chest pain 2 newly development off multifocal groundglass opacification with the possibility of infiltrate or pneumonia 3 advance breast cancer with metastasis 4 hyperlipidemia 5 hypothyroidism 6 chronic migraine 7 severe GERD and hiatal hernia 8 chronic history of depression 9 chronic restless leg syndrome 10 chronic iron deficiency anemia 11 aortic aneurysm: Mostly ascending aortic aneurysm has been stable 12 COPD 13 chronic history of tobacco dependency: Patient had quit smoking a few years ago DISCHARGE DIAGNOSES Home Greater than 35 minutes was utilized and coordinating patient's discharge. Impression and plan of care have been directed as dictated by the signing phys ician. Shanthi Potter nurse practitioner acting as scribe for signing physician. Patient Condition at Discharge: Good Plan - Discharge Summary New Discharge Prescriptions: New Levofloxacin [Levaquin] 750 mg PO DAILY 6 Days #6 tab Continue traZODone HCL [Desyrel] 100 mg PO HS Montelukast [Singulair] 10 mg PO HS Atorvastatin [Lipitor] 10 mg PO HS Baclofen [Lioresal] 10 mg PO BID SUMAtriptan SUCCINATE [Imitrex] 100 mg PO BID PRN PRN Reason: pain Omeprazole [PriLOSEC] 20 mg PO BID Meclizine [Antivert] 25 mg PO BID Vitamin C/Biotin [Hair, Skin and Nails Chew] 1 tab PO BID diphenhydrAMINE [Benadryl] 25 mg PO DAILY Ferrous Sulfate [Iron (65 MG Elemental)] 325 mg PO DAILY Terazosin [Hytrin] 1 mg PO HS Cyanocobalamin [Vitamin B-12] 1,500 mcg PO DAILY Anastrozole [Arimidex] 1 mg PO DAILY L.acidoph,Paracasei, B.lactis [Probiotic] 1 cap PO DAILY Multivit with Calcium,Iron,Min [Women's Multivitamin] 1 tab PO BID Magnesium 500 mg PO DAILY Vit C/E/Zn/Coppr/Lutein/Zeaxan [Preservision Areds 2 Softgel] 1 cap PO DAILY Immune Mihaela- C 1,000 mg PO DAILY Prochlorperazine [Compazine] 10 mg PO Q6H PRN PRN Reason: Nausea Varenicline [Chantix Continuing Pack] 1 mg PO DAILY Cyclobenzaprine [Flexeril] 10 mg PO BID Potassium Gluconate [Potassium Gluconate ER] 99 mg PO HS Oxitrim 1 tab PO BID Cholecalciferol [Vitamin D3 (125 Mcg = 5000 Iu)] 125 mcg PO DAILY Calcium Plus 500 mg PO HS Calcium Plus 1,000 mg PO DAILY Aspirin EC [Ecotrin Low Dose] 81 mg PO DAILY rOPINIRole HCL [Requip] 0.5 mg PO HS Levothyroxine Sodium [Synthroid] 112 mcg PO DAILY Discharge Medication List traZODone HCL [Desyrel] 100 mg PO HS 11/21/14 [History] Montelukast [Singulair] 10 mg PO HS 12/27/15 [History] Atorvastatin [Lipitor] 10 mg PO HS 11/24/17 [History] Baclofen [Lioresal] 10 mg PO BID 05/25/18 [History] Omeprazole [PriLOSEC] 20 mg PO BID 06/22/18 [History] SUMAtriptan SUCCINATE [Imitrex] 100 mg PO BID PRN 06/22/18 [History] Meclizine [Antivert] 25 mg PO BID 02/05/19 [History] Vitamin C/Biotin [Hair, Skin and Nails Chew] 1 tab PO BID 03/04/19 [History] Anastrozole [Arimidex] 1 mg PO DAILY 10/22/19 [History] Cyanocobalamin [Vitamin B-12] 1,500 mcg PO DAILY 10/22/19 [History] Ferrous Sulfate [Iron (65 MG Elemental)] 325 mg PO DAILY 10/22/19 [History] L.acidoph,Paracasei, B.lactis [Probiotic] 1 cap PO DAILY 10/22/19 [History] Terazosin [Hytrin] 1 mg PO HS 10/22/19 [History] diphenhydrAMINE [Benadryl] 25 mg PO DAILY 10/22/19 [History] Multivit with Calcium,Iron,Min [Women's Multivitamin] 1 tab PO BID 11/18/19 [History] Magnesium 500 mg PO DAILY 06/30/20 [History] Aspirin EC [Ecotrin Low Dose] 81 mg PO DAILY 10/09/21 [History] Calcium Plus 1,000 mg PO DAILY 10/09/21 [History] Calcium Plus 500 mg PO HS 10/09/21 [History] Cholecalciferol [Vitamin D3 (125 Mcg = 5000 Iu)] 125 mcg PO DAILY 10/09/21 [History] Cyclobenzaprine [Flexeril] 10 mg PO BID 10/09/21 [History] Immune Mihaela- C 1,000 mg PO DAILY 10/09/21 [History] Levothyroxine Sodium [Synthroid] 112 mcg PO DAILY 10/09/21 [History] Oxitrim 1 tab PO BID 10/09/21 [History] Potassium Gluconate [Potassium Gluconate ER] 99 mg PO HS 10/09/21 [History] Prochlorperazine [Compazine] 10 mg PO Q6H PRN 10/09/21 [History] Varenicline [Chantix Continuing Pack] 1 mg PO DAILY 10/09/21 [History] Vit C/E/Zn/Coppr/Lutein/Zeaxan [Preservision Areds 2 Softgel] 1 cap PO DAILY 10/09/21 [History] rOPINIRole HCL [Requip] 0.5 mg PO HS 10/09/21 [History] Levofloxacin [Levaquin] 750 mg PO DAILY 6 Days #6 tab 10/10/21 [Rx] Follow up Appointment(s)/Referral(s): Nieves Wray MD [STAFF PHYSICIAN] - 2 Weeks Hugo Preston MD [Primary Care Provider] - 1 Week Patient Instructions/Handouts: Chest Pain (DC) Activity/Diet/Wound Care/Special Instructions: Please follow up with your territory supervisor Dr. Rowe or Dr. Wray in 12 weeks. Discharge Disposition: HOME SELF-CARE
--- NOTE | 2021-10-10 12:25 | CA ---
Transthoracic Echo Report Name: Caleb Victoria Age: 60 Gender: F : 1960 Exam Date: 10/10/2021 09:23 Exam Location: [place] [facility] Ht (in): 66 Wt (lb): 180 Ordering Physician: Scott Hammond MD Attending/Referring Phys: Process Steward Fabi Madrigal RDCS Procedure CPT: Indications: lvfunction Cardiac Hx: Technical Quality: Fair Contrast 1: Total Dose (mL): Contrast 2: Total Dose (mL): MEASUREMENTS (Male / Female) Normal Values 2D ECHO LV Diastolic Diameter PLAX 3.5 cm 4.2 - 5.9 / 3.9 - 5.3 cm LV Systolic Diameter PLAX 2.8 cm IVS Diastolic Thickness 1.3 cm 0.6 - 1.0 / 0.6 - 0.9 cm LVPW Diastolic Thickness 1.2 cm 0.6 - 1.0 / 0.6 - 0.9 cm LV Relative Wall Thickness 0.7 RV Internal Dim ED PLAX 3.3 cm LA Systolic Diameter LX 3.0 cm 3.0 - 4.0 / 2.7 - 3.8 cm M-MODE Aortic Root Diameter MM 3.3 cm MV E Point Septal Separation 0.7 cm AV Cusp Separation MM 2.0 cm DOPPLER AV Peak Velocity 139.6 cm/s AV Peak Gradient 7.8 mmHg MV Area PHT 2.9 cm Mitral E Point Velocity 92.8 cm/s Mitral A Point Velocity 100.9 cm/s Mitral E to A Ratio 0.9 MV Deceleration Time 260.2 ms MV E' Velocity 7.6 cm/s Mitral E to MV E' Ratio 12.2 FINDINGS Left Ventricle Left ventricular ejection fraction is estimated at 55-60 %. Normal Left ventricular size, systolic function with no obvious regional wall motion abnormalities. Mild concentric left ventricular hypertrophy. Right Ventricle Mild right ventricular dilatation. Right Atrium Normal right atrial size. Left Atrium Normal left atrial size. Mitral Valve Structurally normal mitral valve. No mitral stenosis, regurgitation or prolapse. Aortic Valve Trileaflet aortic valve. Tricuspid Valve Structurally normal tricuspid valve. No tricuspid stenosis, regurgitation or prolapse. Pulmonic Valve Trace pulmonic regurgitation. Pericardium No pericardial effusion. Aorta Normal size aortic root and proximal ascending aorta. CONCLUSIONS Suboptimal study because of previous chest surgery. Michael LV size and systolic function is normal. No significant abnormality on Doppler Previewed by: Dr. Nieves Wray MD (Electronically Signed) Final Date: 10 October 2021 12:24
[2021-10-10 14:25] VITALS: BP 117/80; PULSE 100; RESP 18; TEMP 97.5
[2021-10-10] MEDS ORDERED: DOXAZOSIN 4 MG TAB PO SCH (21:00)
[2021-10-10] MEDS ORDERED: MONTELUKAST 10 MG TAB PO SCH (21:00)
[2021-10-10] MEDS ORDERED: NON FORMULARY DRUG (Potassium Gluconate [Potassium Gluconate Er] 99 MG Tablet) PO SCH (21:00)
[2021-10-10] MEDS ORDERED: ATORVASTATIN 10 MG TAB PO SCH (21:00)
[2021-10-10] MEDS ORDERED: traZODone HCL 100 MG TAB PO SCH (21:00)
== END 2021-10-10 16:32 | disposition home or self-care (01) ==
LOC: EC 10:54 → 6NMEDSUR 18:29
PROVIDERS: ADMIT Internal Medicine Geriatric Medicine; ATTEND Internal Medicine Geriatric Medicine
DX: R07.89 Other chest pain (principal); R91.8 Other nonspecific abnormal finding of lung field; I71.2 Thoracic aortic aneurysm, without rupture; C79.51 Secondary malignant neoplasm of bone; Z85.3 Personal history of malignant neoplasm of breast; G43.909 Migraine, unspecified, not intractable, without status migrainosus; I11.9 Hypertensive heart disease without heart failure; J44.9 Chronic obstructive pulmonary disease, unspecified; E03.9 Hypothyroidism, unspecified; E78.5 Hyperlipidemia, unspecified; K44.9 Diaphragmatic hernia without obstruction or gangrene; G25.81 Restless legs syndrome; D50.9 Iron deficiency anemia, unspecified; G47.33 Obstructive sleep apnea (adult) (pediatric); K21.9 Gastro-esophageal reflux disease without esophagitis; R42 Dizziness and giddiness; G89.29 Other chronic pain; M54.9 Dorsalgia, unspecified; K64.8 Other hemorrhoids; F32.A Depression, unspecified; F43.10 Post-traumatic stress disorder, unspecified; E66.01 Morbid (severe) obesity due to excess calories; Z68.29 Body mass index [BMI] 29.0-29.9, adult; Z20.822 Contact with and (suspected) exposure to COVID-19; F17.210 Nicotine dependence, cigarettes, uncomplicated; Z79.811 Long term (current) use of aromatase inhibitors; Z79.82 Long term (current) use of aspirin; Z79.890 Hormone replacement therapy; Z79.899 Other long term (current) drug therapy; Z91.040 Latex allergy status; Z91.048 Other nonmedicinal substance allergy status; Z86.16 Personal history of COVID-19; Z86.010 Personal history of colon polyps; Z92.21 Personal history of antineoplastic chemotherapy; Z98.84 Bariatric surgery status; Z90.13 Acquired absence of bilateral breasts and nipples; Z98.890 Other specified postprocedural states; Z87.898 Personal history of other specified conditions; Z80.1 Family history of malignant neoplasm of trachea, bronchus and lung; Z80.3 Family history of malignant neoplasm of breast; Z83.3 Family history of diabetes mellitus; Z82.49 Family history of ischemic heart disease and other diseases of the circulatory system
CPT/HCPCS: 96365; 96375; 99285; 36415; 93005; 93306; 80053 ×2; 84484; 85025 ×2; 85610; 85730; 87635; 71046; 71275; G0378 ×2; J2405; J0696; S0170; J1885; Q9967

== ENCOUNTER → 2021-10-15 | Outpatient (CLI) | payer MEDICARE, OTHER ==
[~2021-10-15] MED LIST changes: -DEXAMETHASONE SOD PHOSPHATE 4 MG/ML 1 ML VIAL IV ONE; -HYDROmorphone 0.5 MG/0.5 ML SYRINGE IVP PRN; -LACTATED RINGERS 1,000 ML IV SCH; -ONDANSETRON 4 MG/2 ML VIAL IVP ONE; -Pre Op ABX Message 1 EACH MISC MISCELLANE ONE; +REGADENOSON 0.4 MG/5 ML SYRINGE IV PRN
--- NOTE | 2021-10-15 14:03 | NM ---
EXAMINATION TYPE: NM stress lexiscan cardiolite DATE OF EXAM: 10/15/2021 COMPARISON: NONE HISTORY: Atypical chest TECHNIQUE: After the intravenous administration of 9.5 mCi Tc 99m Sestamibi - Cardiolite resting SPE CT images acquired 60 minutes post injection. The patient received 0.4mg Lexiscan, 25.6 mCi Tc 99m Sestamibi - Stress images obtained [address] injection FINDINGS: Review of stress and rest SPECT images demonstrates no distinct perfusion abnormality. Gated analysi s shows normal wall motion with an estimated left ventricular ejection fraction of 60 %. IMPRESSION: No scintigraphic evidence for reversible ischemia.
--- NOTE | 2021-10-17 10:51 | CA ---
Lexiscan Nuclear Stress Test Report Name: Caleb Victoria Exam Date: 10/15/2021 10:08 Exam Location: [place] [facility] Ht (in): 66 Wt (lb): 185 BSA: 1.93 Ordering Phys: Nieves Wilson MD Referring Phys: bertha wilson,, Technologist: SAMANTHA,, Age: 61 Gender: F : 1960 Procedure CPT: Indications: atypical chest pain ICD-10 Codes: Patient History: Chest Pain, Shortness of breath, Family history of heart disease Medications: Meds past 24 hrs: Pretest Chest Pain: STRESS TEST Lexiscan Protocol Exercise Duration (min:sec): 01:[address] Depressions (mm): Angina Score: Avitia Score: Resting HR (bpm): 65 Peak HR (bpm): 100 Resting BP (mmHg): 138 / 95 Peak BP (mmHg): 150 / 93 MPHR: 159 Target HR: 135 % MPHR: 63 METS: 1.0 Total Dose: Peak Dose: Atropine: Double Product: 10592 BP Response: Stress Termination: infustion complete Stress Symptoms: Dyspnea Stress Summary: ECG ANALYSIS Resting ECG: Stress ECG: CONCLUSIONS Baseline heart rate 65 beats a minute, Baseline blood pressure 138/95 mmHg Baseline 12-lead EKG showed normal sinus rhythm and normal ST segments Patient received Lexiscan infusion per protocol He complained of shortness of breath The blood pressure 155/93 mmHg normal heart rates No ECG ms for ischemia No arrhythmias Nuclear portion will be reported separately Dr. Rodney Cary MD (Electronically Signed) Final Date: 17 Oct 2021 10:50
== END | disposition home or self-care (01) ==
LOC: RADNMMAIN 08:01
PROVIDERS: ATTEND Internal Medicine Interventional Cardiology
DX: R07.89 Other chest pain (principal); R06.02 Shortness of breath
CPT/HCPCS: 93017; 78452; A9500; J2785

== ENCOUNTER → 2021-11-27 | Outpatient (CLI) | payer MEDICARE, OTHER ==
--- NOTE | 2021-11-27 14:18 | P.SLEEP ---
History of Present Illness H&P Date: 11/27/21 Chief Complaint: Insomnia 61-year-old female patient is coming to see me with complaints of insomnia. The patient states that she is unable to generate more than 3 hours of sleep. The patient is known to me. The patient was morbidly obese and I treated in the past for obstructive sleep apnea. Her last evaluation was back in 2019. At that time, the patient had an AHI index of 28 and the patient was receiving APAP therapy at a minimum pressure of 10 and a maximum pressure of 16 and the treatment was successful. Note that, since then, the patient underwent a gastric sleeve procedure and she lost considerable amount of weight. She claims that she has lost around 150 pounds. Based on my records, back in 2018, the patient used to weigh 267 pounds and currently her weight is down to 202. As such, she has lost approximately 60 pounds. She is at the point where she is not using her CPAP. Nevertheless, she is having difficulties with her sleep schedule. The patient takes trazodone 100 mg. She takes her trazodone at around 7 PM and she tries to go to bed early. She struggles in sleep initiation and ultimately she falls asleep at around 9 PM. Around midnight, she wakes up when she gets out and eats and drinks and watches television and does different activities at home and ultimately she goes to bed and she struggles to sleep and ultimately she is able to generate sleep again at around 4 AM and she sleeps till 6:30 AM in the morning. During the day, she takes a one-hour nap. No anxiety. No depression. No nighttime choking or gasping sensation. No snoring. No grinding of the teeth. No active assistance in lower extremities. She doesn't drink caffeinated beverages at nighttime. Dinner is around 6 PM. No exercise. No heart showers. No morning headaches. She is feeling tired and fatigued. Currently she is retired. Her current [place] score is at 5. No new onset comorbid conditions otherwise for now. Review of Systems Constitutional: Reports fatigue, Reports weight loss Eyes: denies as per HPI, denies blurred vision, denies bulging eye, denies decreased vision, denies diplopia, denies discharge, denies dry eye, denies irritation, denies itching, denies pain, denies photophobia, denies loss of peripheral vision, denies loss of vision, denies tunnel vision/blind spots Ears: deny: decreased hearing, ear discharge, earache, tinnitus Ears, nose, mouth and throat: Reports as per HPI Breasts: absent: as per HPI, change in shape, gynecomastia, masses, nipple discharge, pain, skin changes, swelling Cardiovascular: Denies chest pain, Denies shortness of breath Respiratory: Reports as per HPI Gastrointestinal: Reports as per HPI Genitourinary: Reports as per HPI Menstruation: Reports as per HPI Musculoskeletal: Reports as per HPI Musculoskeletal: absent: ankle pain, ankle stiffness, ankle swelling Integumentary: Reports as per HPI Neurological: Reports as per HPI Psychiatric: Reports sleep disturbances Endocrine: Reports as per HPI Hematologic/Lymphatic: Reports as per HPI Allergic/Immunologic: Reports as per HPI Past Medical History Past Medical History: Cancer, COPD, GERD/Reflux, Hyperlipidemia, Hypertension, Sleep Apnea/CPAP/BIPAP, Thyroid Disorder Additional Past Medical History / Comment(s): positive covid 06-06-20. migraines. No C-pap. Severe vertigo- uses cane. States low heart rate. hx colon polyp. chronic back pain. aortic aneurysm 4.5 cM. Left breast cancer (surgery 06/2019)-no radiation had oral chemo. Sleeve Gastrectomy (04/2018). Internal hemorrhoids. Spinal stimulator-posterior lower left hip area. 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 Eye surgery.Left thumb surgery; surgery on right hand ring finger. EGD. Double Mastectomy (06/2019). Panniculectomy (07/10/20). Sleeve gastrectomy (04-20-18) Past Anesthesia/Blood Transfusion Reactions: No Reported Reaction Additional Past Anesthesia/Blood Transfusion Reaction / Comment(s): no hx blood transfusion Type of Cardiac Device: Loop Device Placement Date:: 2019 Past Psychological History: Depression, PTSD Smoking Status: Light tobacco smoker Past Alcohol Use History: Rare Additional Past Alcohol Use History / Comment(s): Pt states she is a social smoker and drinks alcohol occasionally and smokes medical marijuana. Past Drug Use History: Cocaine, Marijuana Additional Drug Use History / Comment(s): current marijuana daily. Pt states she was addicted to crack cocaine 20 years ago. - Past Family History Mother Family Medical History: Cancer Additional Family Medical History / Comment(s): mother at age 54 due to lung cancer. Patient has 2 aunts had breast cancer. Patient does not have any children. Father Family Medical History: Coronary Artery Disease (CAD), Diabetes Mellitus Additional Family Medical History / Comment(s): Father is alive with history of CAD, DM and is on home O2. She does not know any further details. Sister(s) Additional Family Medical History / Comment(s): ETOH the patient has 2 sisters and one half-sister with no major medical problems. Brother(s) Family Medical History: Coronary Artery Disease (CAD) Additional Family Medical History / Comment(s): Patient has one brother with history of coronary artery disease status post CABG in heart failure. Medications and Allergies Home Medications Medication Instructions Recorded Confirmed Type traZODone HCL [Desyrel] 100 mg PO HS 11/21/14 10/09/21 History Montelukast [Singulair] 10 mg PO HS 12/27/15 10/09/21 History Atorvastatin [Lipitor] 10 mg PO HS 11/24/17 10/09/21 History Baclofen [Lioresal] 10 mg PO BID 05/25/18 10/09/21 History Omeprazole [PriLOSEC] 20 mg PO BID 06/22/18 10/09/21 History SUMAtriptan SUCCINATE [Imitrex] 100 mg PO BID PRN 06/22/18 10/09/21 History Meclizine [Antivert] 25 mg PO BID 02/05/19 10/09/21 History Vitamin C/Biotin [Hair, Skin and 1 tab PO BID 03/04/19 10/09/21 History Nails Chew] Anastrozole [Arimidex] 1 mg PO DAILY 10/22/19 10/09/21 History Cyanocobalamin [Vitamin B-12] 1,500 mcg PO DAILY 10/22/19 10/09/21 History Ferrous Sulfate [Iron (65 MG 325 mg PO DAILY 10/22/19 10/09/21 History Elemental)] L.acidoph,Paracasei, B.lactis 1 cap PO DAILY 10/22/19 10/09/21 History [Probiotic] Terazosin [Hytrin] 1 mg PO HS 10/22/19 10/09/21 History diphenhydrAMINE [Benadryl] 25 mg PO DAILY 10/22/19 10/09/21 History Multivit with Calcium,Iron,Min 1 tab PO BID 11/18/19 10/09/21 History [Women's Multivitamin] Magnesium 500 mg PO DAILY 06/30/20 10/09/21 History Aspirin EC [Ecotrin Low Dose] 81 mg PO DAILY 10/09/21 10/09/21 History Calcium Plus 1,000 mg PO DAILY 10/09/21 10/09/21 History Calcium Plus 500 mg PO HS 10/09/21 10/09/21 History Cholecalciferol [Vitamin D3 (125 125 mcg PO DAILY 10/09/21 10/09/21 History Mcg = 5000 Iu)] Cyclobenzaprine [Flexeril] 10 mg PO BID 10/09/21 10/09/21 History Immune Imhaela- C 1,000 mg PO DAILY 10/09/21 10/09/21 History Levothyroxine Sodium [Synthroid] 112 mcg PO DAILY 10/09/21 10/09/21 History Oxitrim 1 tab PO BID 10/09/21 10/09/21 History Potassium Gluconate [Potassium 99 mg PO HS 10/09/21 10/09/21 History Gluconate ER] Prochlorperazine [Compazine] 10 mg PO Q6H PRN 10/09/21 10/09/21 History Varenicline [Chantix Continuing 1 mg PO DAILY 10/09/21 10/09/21 History Pack] Vit C/E/Zn/Coppr/Lutein/Zeaxan 1 cap PO DAILY 10/09/21 10/09/21 History [Preservision Areds 2 Softgel] rOPINIRole HCL [Requip] 0.5 mg PO HS 10/09/21 10/09/21 History Levofloxacin [Levaquin] 750 mg PO DAILY 6 Days #6 tab 10/10/21 Rx Allergies Allergy/AdvReac Type Severity Reaction Status Date / Time latex Allergy Rash/Hives Verified 10/09/21 11:00 nickel Allergy Rash/Hives Verified 10/09/21 11:00 paper tape Allergy Rash/Hives Uncoded 10/09/21 11:00 Physical Exam BP is 103/71 with a pulse of 102 and respiration of 16 with a temperature of 98.3. Saturation 94% on room air. Weight is 202. Body mass index is 33.6. The patient's [place] score is currently at 5. The patient appeared well nourished and normally developed. Vital signs as documented. Head exam is unremarkable. No scleral icterus or corneal arcus noted. Neck is without jugular venous distension, thyromegaly, or carotid bruits. Carotid upstrokes are brisk bilaterally. Lungs are clear to auscultation and percussion. Cardiac exam reveals the PMI to be normally sized and situated. Rhythm is regular. First and second heart sounds normal. No murmurs, rubs or gallops. Abdominal exam reveals normal bowel sounds, no masses, no organomegaly and no aortic enlargement. Extremities are nonedematous and both femoral and pedal pulses are normal. Examination of the skin revealed no evidence of significant rashes, suspicious appearing nevi or other concerning lesions.Neurologically, the patient is awake and alert and the patient does not have any focal neurological deficit. Cranial nerves are essentially intact. Assessment and Plan Plan: Subjective insomnia. Based on further evaluation, the patient has an irregular sleep schedule and her sleep disturbances essentially related to abnormal sleep hygiene measures in addition to an irregular sleep schedule is as involved following her bariatric surgery and her senior care. No obvious signs of ongoing obstructive sleep apnea and the patient has quit using her CPAP therapy after her bariatric surgery and the patient is currently off treatment. History of obstructive sleep apnea with an AHI of 28. Currently off treatment as the patient undergone gastric sleeve with significant weight loss History of obesity, post-gastric sleeve and the patient's current weight is down to 202 COPD Hypothyroidism Migraines History of vertigo History of chronic back pain History of polyps History of spinal stability insertion Plan The patient has to regulate her sleep schedule. I have a plan for her and we decided both to set up a goal where she goes to bed around 10:30 PM and she takes her medications around that time including her trazodone. I also asked her to get out of bed at around 5:00 in the morning restricting her number of hours of sleep or number of hours in bed. We will implement sleep restriction. We will implement stimulus control. Avoid taking any naps during the day. Advised the sleep hygiene measures and she was instructed to do so and went over all of her sleep hygiene measures. Night sweats CPAP therapy at this point in time. I think is reasonable to undergo a home sleep study later stage development the presence of sleep apnea once his sleep schedule is more regulated. No need for any hypnotic medications. Continue trazodone for now. Treat other comorbidities including her chronic back pain and the patient is currently taking baclofen for pain in addition to Flexeril as needed. We'll continue to follow and ask the patient to contact me back in 3 months and if there is no improvement. Sleep Note - Sleep Note Sleep Note: Temperature: Pulse Rate: Respiratory Rate: Blood Pressure: SpO2: Height: Weight: BMI: Neck Circumference:
== END ==
LOC: SLEEP 13:17
PROVIDERS: ATTEND Internal Medicine Critical Care Medicine
DX: G47.33 Obstructive sleep apnea (adult) (pediatric) (principal); J44.9 Chronic obstructive pulmonary disease, unspecified; E03.9 Hypothyroidism, unspecified; G43.909 Migraine, unspecified, not intractable, without status migrainosus; G89.29 Other chronic pain; Z86.39 Personal history of other endocrine, nutritional and metabolic disease; Z98.84 Bariatric surgery status; Z86.69 Personal history of other diseases of the nervous system and sense organs; Z86.010 Personal history of colon polyps; Z87.39 Personal history of other diseases of the musculoskeletal system and connective tissue; Z98.890 Other specified postprocedural states; E78.5 Hyperlipidemia, unspecified; I10 Essential (primary) hypertension; F32.A Depression, unspecified; F43.10 Post-traumatic stress disorder, unspecified; F17.200 Nicotine dependence, unspecified, uncomplicated; K21.9 Gastro-esophageal reflux disease without esophagitis; Z79.890 Hormone replacement therapy; Z79.899 Other long term (current) drug therapy; Z91.040 Latex allergy status; Z91.048 Other nonmedicinal substance allergy status; Z88.9 Allergy status to unspecified drugs, medicaments and biological substances
CPT/HCPCS: 99211

== ENCOUNTER → 2022-12-05 | Outpatient (CLI) | payer MEDICARE, OTHER ==
--- NOTE | 2022-12-05 09:19 | XR ---
EXAMINATION TYPE: XR abdomen 2V DATE OF EXAM: 12/05/2022 COMPARISON: NONE HISTORY: Pain TECHNIQUE: One view abdominal series FINDINGS: The osseous structures are intact. The bowel gas pattern is nonspecific. Stimulator device is arthro alison of the shoulders. Calcifications in the pelvis are likely vascular. Hypertrophic and degenerati ve change of the spine. Surgical changes in the upper quadrant on the left. IMPRESSION: 1. Nonspecific abdomen.
[2022-12-05 15:56] LABS: ALT 29 U/L (8-44); AST 20 U/L (13-35); Albumin 4.6 d/dL (3.8-4.9); Albumin/Globulin Ratio 1.77 Ratio (1.60-3.17); Alkaline Phosphatase 98 U/L (41-126); BUN/Creat Ratio 8.73 Ratio (12.00-20.00); Blood Urea Nitrogen 9.6 mg/dL (9.0-27.0); Calcium 9.9 mg/dL (8.7-10.3); Carbon Dioxide 25.6 mmol/L (21.6-31.8); Chloride 101 mmol/L (96-109); Globulin 2.6 d/dL (1.6-3.3); Glucose 107 mg/dL (70-110); Sodium 142 mmol/L (135-145); Total Bilirubin 0.5 mg/dL (0.3-1.2); Total Protein 7.2 d/dL (6.2-8.2)
[2022-12-05 16:33] LABS: HCT 47.3 % (37.2-46.3); HGB 14.9 d/dL (12.0-15.0); MCH 31.1 pg (27.0-32.0); MCHC 31.5 d/dL (32.0-37.0); MCV 98.7 FL (80.0-97.0); Mean Platelet Volume 10.2 FL (9.5-12.2); NRBC Per 100 WBC 0 X 10*3/uL (0.00-0.01); Platelet Count 285 X 10*3/uL (140-440); RBC 4.79 X 10*6/uL (4.10-5.20); RDW 13.2 % (11.5-14.5); WBC 7.89 X 10*3/uL (4.50-10.00)
[2022-12-05 16:49] LABS: Erythrocyte Sedimentation Rate 37 mm/Hr (0-30)
== END | disposition home or self-care (01) ==
LOC: RADXRMAIN 08:44
PROVIDERS: ATTEND Nurse Practitioner Family
DX: K58.9 Irritable bowel syndrome, unspecified (principal)
CPT/HCPCS: 74019; 80053; 85027; 85652; 86140

== ENCOUNTER 2023-04-15 15:26 | Emergency (ER) | payer MEDICARE, OTHER ==
--- NOTE | 2023-04-15 15:34 | ED ---
General Adult HPI - General Source: patient, RN notes reviewed Mode of arrival: ambulatory Limitations: no limitations <Enmanuel Smith - Last Filed: 04/15/23 15:33> - General Source: patient, RN notes reviewed Mode of arrival: ambulatory Limitations: no limitations <Jesus Rider - Last Filed: 04/15/23 21:07> - General Stated complaint: chest pain, migraine Time Seen by Provider: 04/15/23 15:33 - History of Present Illness Initial comments: 62-year-old female presents emergency Department chief complaint of headache, chest discomfort. Patient states that she had a headache yesterday with increasing today even after taking her Imitrex and Compazine. Patient states she has chest pressure she just doesn't feel well. Patient states she also has which she believes is a but bite on her left arm and is swollen. (Enmanuel Smith) Patient is a pleasant 60-year-old female presenting to emergency Department with chief complaint of headache. Onset was yesterday. Patient does have history of chronic migraines similar to this dozens of times previously. Discomfort remained severe. Patient did take her Imitrex twice without improvement. Onset was gradual and progressively worsening. No weakness. Patient does have some chest discomfort however states she does get chest discomfort with her hea daches. Patient also sustained a bug bite to her left arm and complains of itching of that. (Jesus Rider) - Related Data Home Medications Medication Instructions Recorded Confirmed traZODone HCL [Desyrel] 100 mg PO HS 11/21/14 08/22/22 Montelukast [Singulair] 10 mg PO HS 12/27/15 08/22/22 Atorvastatin [Lipitor] 10 mg PO HS 11/24/17 08/22/22 Baclofen [Lioresal] 10 mg PO BID 05/25/18 08/22/22 Omeprazole [PriLOSEC] 20 mg PO BID 06/22/18 08/22/22 SUMAtriptan succinate [Imitrex] 100 mg PO BID PRN 06/22/18 08/22/22 Meclizine [Antivert] 25 mg PO BID 02/05/19 08/22/22 Vitamin C/Biotin [Hair, Skin and 1 tab PO BID 03/04/19 08/22/22 Nails Chew] Anastrozole [Arimidex] 1 mg PO DAILY 10/22/19 08/22/22 Cyanocobalamin [Vitamin B-12] 1,500 mcg PO DAILY 10/22/19 08/22/22 Ferrous Sulfate [Iron (65 MG 325 mg PO DAILY 10/22/19 08/19/22 Elemental)] L.acidoph,Paracasei, B.lactis 1 cap PO DAILY 10/22/19 08/22/22 [Probiotic] Terazosin [Hytrin] 1 mg PO HS 10/22/19 08/22/22 diphenhydrAMINE [Benadryl] 25 mg PO DAILY 10/22/19 08/22/22 Multivit with Calcium,Iron,Min 1 tab PO BID 11/18/19 08/19/22 [Women's Multivitamin] Magnesium 500 mg PO HS 06/30/20 08/22/22 Aspirin EC [Ecotrin Low Dose] 81 mg PO DAILY 10/09/21 08/19/22 Calcium Plus 1,000 mg PO DAILY 10/09/21 08/22/22 Calcium Plus 500 mg PO HS 10/09/21 08/22/22 Cholecalciferol [Vitamin D3 (125 125 mcg PO DAILY 10/09/21 08/22/22 Mcg = 5000 Iu)] Cyclobenzaprine [Flexeril] 10 mg PO BID 10/09/21 08/22/22 Levothyroxine Sodium [Synthroid] 112 mcg PO DAILY 10/09/21 08/22/22 Potassium Gluconate [Potassium 99 mg PO HS 10/09/21 08/22/22 Gluconate ER] Prochlorperazine [Compazine] 10 mg PO BID 10/09/21 08/22/22 Varenicline [Chantix Continuing 1 mg PO DAILY 10/09/21 08/22/22 Pack] Vit C/E/Zn/Coppr/Lutein/Zeaxan 1 cap PO DAILY 10/09/21 08/22/22 [Preservision Areds 2 Softgel] rOPINIRole HCL [Requip] 0.5 mg PO HS 10/09/21 08/22/22 Alendronate Sodium [Fosamax] 70 mg PO WEEKLY 08/19/22 08/22/22 Aric Headache 1 dose PO DIRECTED PRN 08/19/22 Clindamycin Phosphate [Clindagel 1 applic TOPICAL DAILY PRN 08/19/22 08/22/22 1%] Linaclotide [Linzess] 145 mcg PO DAILY 08/19/22 08/22/22 Prebiotic 1 dose PO DAILY 08/19/22 Propranolol LA [Inderal LA] 80 mg PO HS 08/19/22 08/22/22 polyethylene glycoL 3350 [Miralax] 17 gm PO DAILY 08/19/22 08/22/22 Allergies Allergy/AdvReac Type Severity Reaction Status Date / Time latex Allergy Rash/Hives Verified 04/15/23 15:34 nickel Allergy Rash/Hives Verified 04/15/23 15:34 paper tape Allergy Rash/Hives Uncoded 04/15/23 15:34 Review of Systems ROS Other: All systems not noted in ROS Statement are negative. <Enmanuel Smith - Last Filed: 04/15/23 15:33> ROS Other: All systems not noted in ROS Statement are negative. Constitutional: Denies: fever Eyes: Denies: eye pain ENT: Denies: ear pain Respiratory: Denies: cough, dyspnea Cardiovascular: Reports: as per HPI, chest pain Endocrine: Denies: fatigue Gastrointestinal: Reports: nausea. Denies: abdominal pain, vomiting Neurological: Reports: as per HPI, headache (With photophobia). Denies: weakness, confusion <Jeuss Rider - Last Filed: 04/15/23 21:07> ROS Statement: Those systems with pertinent positive or pertinent negative responses have been documented in the HPI. Past Medical History Past Medical History: Cancer, COPD, GERD/Reflux, Hyperlipidemia, Hypertension, Sleep Apnea/CPAP/BIPAP, Thyroid Disorder Additional Past Medical History / Comment(s): covid 06-06-20. migraines., states sleep apnea resolved with wt loss., Severe vertigo- uses cane. States low hea rt rate. hx colon polyp. chronic back pain. aortic aneurysm ., Left breast cancer (surgery 06/2019)-no radiation had oral chemo., Sleeve Gastrectomy (04/2018). Internal hemorrhoids. Spinal stimulator-posterior lower left hip area. History of Any Multi-Drug Resistant Organisms: None Reported Past Surgical History: Bariatric Surgery, Bladder Surgery, Breast Surgery, Orthopedic Surgery Additional Past Surgical History / Comment(s): loop recorder inserted & removed., Eye surgery., Left thumb surgery., surgery right hand ring finger., EGD. colonoscopy., Double Mastectomy (06/2019). Panniculectomy (07/10/20). Sleeve gastrectomy (04-20-18)., nerve stimulator. Past Anesthesia/Blood Transfusion Reactions: No Reported Reaction, Motion Sickness Additional Past Anesthesia/Blood Transfusion Reaction / Comment(s): . Type of Cardiac Device: Loop Device Placement Date:: 2019 Past Psychological History: Depression, PTSD Smoking Status: Current some day smoker Past Alcohol Use History: Rare Additional Past Alcohol Use History / Comment(s): smokes occasionally ., quit smoking 2017 (hx of 06/17 ppd) Past Drug Use History: Cocaine, Marijuana Additional Drug Use History / Comment(s): current marijuana daily. Pt states she was addicted to crack cocaine 20 years ago. - Past Family History Mother Family Medical History: Cancer Additional Family Medical History / Comment(s): mother at age 54 due to lung cancer. Patient has 2 aunts had breast cancer. Patient does not have any children. Father Family Medical History: Coronary Artery Disease (CAD), Diabetes Mellitus Additional Family Medical History / Comment(s): Father is alive with history of CAD, DM and is on home O2. She does not know any further details. Sister(s) Family Medical History: No Reported History Additional Family Medical History / Comment(s): ETOH the patient has 2 sisters and one half-sister with no major medical problems. Brother(s) Family Medical History: Coronary Artery Disease (CAD) Additional Family Medical History / Comment(s): Patient has one brother with history of coronary artery disease status post CABG in heart failure. <Enmanuel Smith M - Last Filed: 04/15/23 15:33> General Exam General appearance: alert, in no apparent distress <Enmanuel Smith M - Last Filed: 04/15/23 15:33> Limitations: no limitations General appearance: alert, in no apparent distress Head exam: Present: normocephalic Eye exam: Present: normal appearance, PERRL, EOMI Neck exam: Present: normal inspection. Absent: tenderness, meningismus Respiratory exam: Present: normal lung sounds bilaterally Cardiovascular Exam: Present: regular rate, normal rhythm GI/Abdominal exam: Present: soft. Absent: tenderness Extremities exam: Present: normal inspection Neurological exam: Present: alert, oriented X3, CN II-XII intact. Absent: motor sensory deficit Expanded Neurological exam: Present: protecting the airway Speech: Present: fluid speech Cranial nerves: EOM's Intact: Normal Motor strength exam: RUE: 5, LUE: 5, RLE: 5, LLE: 5 Eye Response: (4) open spontaneously Motor Response: (6) obeys commands Verbal Response: (5) oriented Psychiatric exam: Present: normal affect, normal mood Skin exam: Present: other (Left lateral upper arm with mild puncture and swelling consistent with reported history of insect bite) <Jesus Rider - Last Filed: 04/15/23 21:07> - General Exam Comments Initial Comments: Visual Physical Exam Vital signs reviewed General: Well-appearing, nontoxic, no acute distress. Head: Normocephalic, atraumatic Eyes: PERRLA, EOMI ENT: Airway patent Chest: Nonlabored breathing Skin: No visual rash, normal skin tone Neuro: Alert and oriented 3 Musculoskeletal: No gross abnormalities (Enmanuel Smith) Course Vital Signs 04/15/23 04/15/23 15:31 19:50 Temperature 98.2 F Pulse Rate 92 94 Respiratory 22 20 Rate Blood Pressure 156/86 90/77 O2 Sat by Pulse 98 94 L Oximetry Medical Decision Making <Enmanuel Smith - Last Filed: 04/15/23 15:33> - Lab Data Result diagrams: 04/15/23 16:10 04/15/23 16:10 <Jesus Rider - Last Filed: 04/15/23 21:07> - Medical Decision Making I completed the quick note portion of this chart signed Enmanuel Smith PA-C (Enmanuel Smith) Was pt. sent in by a medical professional or institution (HOANG Durant, EMERGENCY ROOM SPECIALIST, urgent care, hospital, or intermediate...) When possible be specific @ -No Did you speak to anyone other than the patient for history (EMS, parent, family, police, friend...)? What history was obtained from this source @ -No Did you review nursing and triage notes (agree or disagree)? Why? @ -I reviewed and agree with nursing and triage notes Were old charts reviewed (outside hosp., previous admission, EMS record, old EKG, old radiological studies, urgent care reports/EKG's, intermediate records)? Report findings @ -No old charts were reviewed Differential Diagnosis (chest pain, altered mental status, abdominal pain women, abdominal pain men, vaginal bleeding, weakness, fever, dyspnea, syncope, headache, dizziness, GI bleed, back pain, seizure, CVA, palpatations, mental health, musculoskeletal)? @ -Differential Headache: Migraine, tension, cluster, carbon monoxide, central venous thrombosis, pension karma temporal arteritis, acute closure glaucoma, intercranial hemorrhage, mastoiditis, sinusitis, head injury, this is not meant to be an all-inclusive list.Differential Chest Pain: Stable Angina, Unstable Angina, STEMI, NSTEMI Aortic Dissection, Pneumothorax, Musculoskeletal, Esophageal Spasm GERD, Cholecystitis, Pancreatitis, Zoster, this is not meant to be an all-inclusive list. EKG interpreted by me (3pts min.). @ -As above X-rays interpreted by me (1pt min.). @ -Chest x-ray without acute abnormality. CT interpreted by me (1pt min.). @ -Report reviewed. U/S interpreted by me (1pt. min.). @ -None done What testing was considered but not performed or refused? (CT, X-rays, U/S, labs)? Why? @ -None What meds were considered but not given or refused? Why? @ -None Did you discuss the management of the patient with other professionals (professionals i.e. , PA, EMERGENCY ROOM SPECIALIST, lab, RT, psych nurse, nephrology social worker, senior instrumentation engineer, teacher, chief talent officer, insurance case manager)? Give summary @ -No Was smoking cessation discussed for >3mins.? @ -No Was critical care preformed (if so, how long)? @ -No Were there social determinants of health that impacted care today? How? (Homelessness, low income, unemployed, alcoholism, drug addiction, transportation, low edu. Level, literacy, decrease access to med. care, fpc, rehab)? @ -No Was there de-escalation of care discussed even if they declined (Discuss DNR or withdrawal of care, Hospice)? DNR status @ -No What co-morbidities impacted this encounter? (DM, HTN, Smoking, COPD, CAD, Cancer, CVA, ARF, Chemo, Hep., AIDS, mental health diagnosis, sleep apnea, morbid obesity)? @ -None Was patient admitted / discharged? Hospital course, mention meds given and route, prescriptions, significant lab abnormalities, going to OR and other pertinent info. @ -Patient reevaluated and feeling much better. Patient states her migraine has resolved however still has a little bit of headache. Patient does request Tylenol. Discussion had with patient regarding chest discomfort. Patient refuses further evaluation for this or admission. Patient states this is a chronic problem for her and is unnecessary. Patient does see her doctor regular for this. Patient does request discharge home. Patient is updated on results and need for close follow-up. Undiagnosed new problem with uncertain prognosis? @ -No Drug Therapy requiring intensive monitoring for toxicity (Heparin, Nitro, Insulin, Cardizem)? @ -No Were any procedures done? @ -No Diagnosis/symptom? @ -Cephalgia Acute, or Chronic, or Acute on Chronic? @ -Acute on chronic Uncomplicated (without systemic symptoms) or Complicated (systemic symptoms)? @ -default Side effects of treatment? @ -No Exacerbation, Progression, or Severe Exacerbation? @ -No Poses a threat to life or bodily function? How? (Chest pain, USA, SD, pneumonia, PE, COPD, DKA, ARF, appy, cholecystitis, CVA, Diverticulitis, Homicidal, Suicid al, threat to staff... and all critical care pts) @ -No (Jesus Rider) - Lab Data Lab Results 04/15/23 04/15/23 04/15/23 Range/Units 16:10 16:10 16:10 WBC 7.2 (3.8-10.6) k/uL RBC 4.51 (3.80-5.40) m/uL Hgb 14.2 (11.4-16.0) gm/dL Hct 44.2 (34.0-46.0) % MCV 97.8 (80.0-100.0) fL MCH 31.6 (25.0-35.0) pg MCHC 32.3 (31.0-37.0) g/dL RDW 13.1 (11.5-15.5) % Plt Count 262 (150-450) k/uL MPV 8.5 Neutrophils % 53 % Lymphocytes % 35 % Monocytes % 6 % Eosinophils % 3 % Basophils % 1 % Neutrophils # 3.8 (1.3-7.7) k/uL Lymphocytes # 2.5 (1.0-4.8) k/uL Monocytes # 0.4 (0-1.0) k/uL Eosinophils # 0.2 (0-0.7) k/uL Basophils # 0.1 (0-0.2) k/uL PT 10.0 (10.0-12.5) sec INR 0.9 (<1.2) APTT 23.2 (22.0-30.0) sec Sodium 139 (137-145) mmol/L Potassium 4.5 (3.5-5.1) mmol/L Chloride 104 (98-107) mmol/L Carbon Dioxide 28 (22-30) mmol/L Anion Gap 7 mmol/L BUN 12 (7-17) mg/dL Creatinine 0.96 (0.52-1.04) mg/dL Est GFR (CKD-EPI)AfAm 73 (>60 ml/min/1.73 sqM) Est GFR (CKD-EPI)NonAf 64 (>60 ml/min/1.73 sqM) Glucose 97 (74-99) mg/dL Calcium 9.2 (8.4-10.2) mg/dL Magnesium 2.1 (1.6-2.3) mg/dL Total Bilirubin 0.4 (0.2-1.3) mg/dL AST 21 (14-36) U/L ALT 24 (4-34) U/L Alkaline Phosphatase 86 (38-126) U/L Troponin I (0.000-0.034) ng/mL NT-Pro-B Natriuret Pep 99 pg/mL Total Protein 6.7 (6.3-8.2) g/dL Albumin 4.1 (3.5-5.0) g/dL Influenza Type A (PCR) (Not Detectd) Influenza Type B (PCR) (Not Detectd) RSV (PCR) (Not Detectd) SARS-CoV-2 (PCR) (Not Detectd) 04/15/23 04/15/23 Range/Units 16:10 16:10 WBC (3.8-10.6) k/uL RBC (3.80-5.40) m/uL Hgb (11.4-16.0) gm/dL Hct (34.0-46.0) % MCV (80.0-100.0) fL MCH (25.0-35.0) pg MCHC (31.0-37.0) g/dL RDW (11.5-15.5) % Plt Count (150-450) k/uL MPV Neutrophils % % Lymphocytes % % Monocytes % % Eosinophils % % Basophils % % Neutrophils # (1.3-7.7) k/uL Lymphocytes # (1.0-4.8) k/uL Monocytes # (0-1.0) k/uL Eosinophils # (0-0.7) k/uL Basophils # (0-0.2) k/uL PT (10.0-12.5) sec INR (<1.2) APTT (22.0-30.0) sec Sodium (137-145) mmol/L Potassium (3.5-5.1) mmol/L Chloride (98-107) mmol/L Carbon Dioxide (22-30) mmol/L Anion Gap mmol/L BUN (7-17) mg/dL Creatinine (0.52-1.04) mg/dL Est GFR (CKD-EPI)AfAm (>60 ml/min/1.73 sqM) Est GFR (CKD-EPI)NonAf (>60 ml/min/1.73 sqM) Glucose (74-99) mg/dL Calcium (8.4-10.2) mg/dL Magnesium (1.6-2.3) mg/dL Total Bilirubin (0.2-1.3) mg/dL AST (14-36) U/L ALT (4-34) U/L Alkaline Phosphatase (38-126) U/L Troponin I <0.012 (0.000-0.034) ng/mL NT-Pro-B Natriuret Pep pg/mL Total Protein (6.3-8.2) g/dL Albumin (3.5-5.0) g/dL Influenza Type A (PCR) Not Detected (Not Detectd) Influenza Type B (PCR) Not Detected (Not Detectd) RSV (PCR) Not Detected (Not Detectd) SARS-CoV-2 (PCR) Not Detected (Not Detectd) Disposition <Enmanuel Smith - Last Filed: 04/15/23 15:33> Is patient prescribed a controlled substance at d/c from ED?: No Time of Disposition: 21:07 <Jesus Rider - Last Filed: 04/15/23 21:07> Clinical Impression: Cephalgia Disposition: HOME SELF-CARE Condition: Stable Instructions (If sedation given, give patient instructions): Chest Pain (ED), Migraine Headache (ED) Additional Instructions: Please do follow-up with your doctor in the next one to 2 days for recheck. Return for chest pain, difficult to breathing, increased headache or weakness or confusion, worsening symptoms or any other concerns. Referrals: Hugo Preston MD [Primary Care Provider] - 1-2 days
[2023-04-15 16:52] LABS: Basophils # (A) 0.1 k/uL (0-0.2); Basophils % (A) 1 %; Eosinophils # (A) 0.2 k/uL (0-0.7); Eosinophils % (A) 3 %; HCT 44.2 % (34.0-46.0); HGB 14.2 gm/dL (11.4-16.0); Lymphocytes # (A) 2.5 k/uL (1.0-4.8); Lymphocytes % (A) 35 %; MCH 31.6 pg (25.0-35.0); MCHC 32.3 g/dL (31.0-37.0); MCV 97.8 fL (80.0-100.0); Mean Platelet Volume 8.5; Monocytes # (A) 0.4 k/uL (0-1.0); Monocytes % (A) 6 %; Neutrophils # (A) 3.8 k/uL (1.3-7.7); Neutrophils % (A) 53 %; Platelet Count 262 k/uL (150-450); RBC 4.51 m/uL (3.80-5.40); RDW 13.1 % (11.5-15.5); WBC 7.2 k/uL (3.8-10.6)
--- NOTE | 2023-04-15 16:53 | XR ---
EXAMINATION TYPE: XR chest 2V DATE OF EXAM: 04/15/2023 4:49 PM COMPARISON: Chest radiographs from 10/09/2021 TECHNIQUE: XR chest 2V Frontal and lateral views of the chest. CLINICAL INDICATION:Female, 62 years old with history of Chest Pain; FINDINGS: Lungs/Pleura: There is no evidence of pleural effusion, focal consolidation, or pneumothorax. Chroni c senescent parenchymal change. Pulmonary vascularity: Unremarkable. Heart/mediastinum: Cardiomediastinal silhouette is unremarkable. Atherosclerotic calcifications are seen in the aorta. Musculoskeletal: Multiple level degenerative disc disease changes seen throughout the spine. Spinal s timulator leads identified. Other findings: Linear metallic density likely representing a surgical clip overlying the cervical sp ine on the frontal view. IMPRESSION: No acute cardiopulmonary disease/process.
[2023-04-15 16:57] LABS: ALT 24 U/L (4-34); AST 21 U/L (14-36); African American GFR (CKD) 73 (>60 ml/min/1.73 sqM); Albumin 4.1 g/dL (3.5-5.0); Alkaline Phosphatase 86 U/L (38-126); Anion Gap 7 mmol/L; Blood Urea Nitrogen 12 mg/dL (7-17); Calcium 9.2 mg/dL (8.4-10.2); Carbon Dioxide 28 mmol/L (22-30); Chloride 104 mmol/L (98-107); Glucose 97 mg/dL (74-99); Magnesium 2.1 mg/dL (1.6-2.3); Non-African American GFR(CKD) 64 (>60 ml/min/1.73 sqM); Potassium 4.5 mmol/L (3.5-5.1); Sodium 139 mmol/L (137-145); Total Bilirubin 0.4 mg/dL (0.2-1.3); Total Protein 6.7 g/dL (6.3-8.2)
[2023-04-15 17:04] LABS: NT-Pro-B-Type Natriuretic Pept 99 pg/mL
[2023-04-15 17:11] LABS: INR 0.9 (<1.2); Partial Thromboplastin Time 23.2 sec (22.0-30.0)
[2023-04-15] MEDS ORDERED: METOCLOPRAMIDE 5 MG/ML 2 ML VIAL IVP STA (19:33)
[2023-04-15] MEDS ORDERED: HYDROmorphone 1 MG/ML 1 ML SYRINGE IVP STA (19:33)
[2023-04-15] MEDS ORDERED: SODIUM CHLORIDE 0.9% 1,000 ML IV STA (19:33)
--- NOTE | 2023-04-15 20:39 | CT ---
EXAMINATION TYPE: CT angio chest CT DLP: 1190.2 mGycm, Automated exposure control for dose reduction was used. DATE OF EXAM: 04/15/2023 8:29 PM COMPARISON: Chest radiograph from same day. CTA chest 10/09/2021 CLINICAL INDICATION:Female, 62 years old with history of cp, eval aorta; Chest tightness onset this a m TECHNIQUE/CONTRAST: CTA scan of the thorax is performed without and with IV Contrast, patient injected with 100 cc mL of Isovue 370, MIP images are created and reviewed. 3-D reformats of the aorta were created on a [employer] workstation. FINDINGS: Lungs/Pleura: No evidence of focal consolidation, pleural effusion or pneumothorax. New groundglass o pacities within the dependent portions of the bilateral lower lobes. Small groundglass density within the left apex measuring up to 8 mm. This is stable from prior exam. Mild centrilobular emphysematous changes. Airway: Large airways are patent. Heart: The heart is mildly enlarged for size.. Trace pericardial effusion. Vasculature: No evidence for intramural hematoma, dissection or penetrating atherosclerotic ulcer. St able ectasia of the ascending thoracic aorta measuring up to 3.9 cm when measuring with similar techn ique.. Aortic root measures up to 3.5 cm. Descending thoracic aorta measures up to 2.4 cm. No pulmona ry embolism identified. Mediastinum: No gross evidence of adenopathy. Musculoskeletal: No acute osseous abnormalities. Spinal stimulator leads identified again. Mild degen erative changes of the thoracic spine. Soft Tissues: Unremarkable. Lower neck: No significant findings. Upper Abdomen: Post surgical changes of the stomach from gastric sleeve. Fluid-filled mildly distende d esophagus to the mid-level again demonstrated. IMPRESSION: 1. 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 No evidence for dissection or intramural he matoma. 2. Stable left upper lobe 8 mm glass nodule with new left lower lobe dependent groundglass opacities which may represent atelectasis versus infiltrate. 3. Postsurgical changes from gastric sleeve with redemonstration of mildly distended fluid-filled mid to distal esophagus. Could be seen with reflux and/or esophageal/GE junction stricture.
[2023-04-15] MEDS ORDERED: ACETAMINOPHEN TAB 500 MG TAB PO STA (21:04)
[2023-04-15 21:25] VITALS: BP 134/89; PULSE 83; RESP 16; TEMP 98.7
== END 2023-04-15 21:18 | disposition home or self-care (01) ==
LOC: EC 15:26
DX: R51.9 Headache, unspecified (principal); J44.9 Chronic obstructive pulmonary disease, unspecified; I10 Essential (primary) hypertension; K21.9 Gastro-esophageal reflux disease without esophagitis; E78.5 Hyperlipidemia, unspecified; E07.9 Disorder of thyroid, unspecified; F32.A Depression, unspecified; F17.200 Nicotine dependence, unspecified, uncomplicated; F12.90 Cannabis use, unspecified, uncomplicated; Z86.16 Personal history of COVID-19; Z91.040 Latex allergy status; Z88.8 Allergy status to other drugs, medicaments and biological substances; Z79.899 Other long term (current) drug therapy; Z79.890 Hormone replacement therapy
CPT/HCPCS: 36415; 93005; 83880; 80053; 83735; 84484; 85025; 85610; 85730; 87636; 71046; 71275; 99285; 96374; 96375; 96361 ×2; J2765; J1170; Q9967

== ENCOUNTER 2023-04-24 08:47 | Day surgery (SDC) | payer MEDICARE, OTHER ==
[2023-04-23 09:01] VITALS: BMI 33.5
[2023-04-24] MEDS ORDERED: LACTATED RINGERS 1,000 ML IV SCH (09:01)
[2023-04-24] MEDS ORDERED: ONDANSETRON 4 MG/2 ML VIAL ONE (09:41)
[2023-04-24] MEDS ORDERED: ONDANSETRON 4 MG/2 ML VIAL IVP ONE (09:43)
[2023-04-24 09:45] VITALS: RESP 16; TEMP 97
[2023-04-24] MEDS ORDERED: PROPOFOL 10 MG/ML 20 ML VIAL IV ONE (09:59)
--- NOTE | 2023-04-24 10:10 | P.OP ---
Date of Procedure: 04/24/23 Preoperative Diagnosis: Dysphagia Postoperative Diagnosis: Antral gastritis Procedure(s) Performed: EGD Anesthesia: MAC Surgeon: Navid Coley Pathology: other (Antrum) Condition: stable Disposition: PACU Description of Procedure: The patient's placed on the endoscopy table in the lateral position. He received IV sedation. The gastro-/oropharynx passed in the esophagus and stomach. Scope was then placed through the pylorus. The first and second portion of the duodenum appeared normal. Scope was then brought back the antrum this. Mildly inflamed. A biopsies performed. The scope was then withdrawn through the stomach. Patient appears gastric sleeve. The sleeve appeared to be mildly dilated. There is no inflammation or erosion sleeve. There was no significant hiatal hernia seen. The GE junction was at 47 is. The distal esophagus appeared normal. The proximal esophagus. Normal the scope was withdrawn for patient.
[2023-04-24 10:40] VITALS: BP 121/88; PULSE 73
== END 2023-04-24 10:42 | disposition home or self-care (01) ==
LOC: ORWHC2ENDO 08:47
PROVIDERS: ATTEND Surgery
DX: K29.50 Unspecified chronic gastritis without bleeding (principal); J44.9 Chronic obstructive pulmonary disease, unspecified; I10 Essential (primary) hypertension; E78.5 Hyperlipidemia, unspecified; G47.33 Obstructive sleep apnea (adult) (pediatric); E07.9 Disorder of thyroid, unspecified; K21.9 Gastro-esophageal reflux disease without esophagitis; G95.89 Other specified diseases of spinal cord; G43.909 Migraine, unspecified, not intractable, without status migrainosus; Z83.3 Family history of diabetes mellitus; Z82.49 Family history of ischemic heart disease and other diseases of the circulatory system; Z87.891 Personal history of nicotine dependence; Z91.040 Latex allergy status; Z79.51 Long term (current) use of inhaled steroids; Z79.890 Hormone replacement therapy; Z79.52 Long term (current) use of systemic steroids; Z98.890 Other specified postprocedural states; Z79.899 Other long term (current) drug therapy; Z90.10 Acquired absence of unspecified breast and nipple
CPT/HCPCS: 88305; 43239; J2405; J2704

== ENCOUNTER → 2023-04-28 | Outpatient (CLI) | payer MEDICARE ==
--- NOTE | 2023-04-28 13:24 | FL ---
EXAMINATION TYPE: FL UGI air w esophagus DATE OF EXAM: 04/28/2023 10:56 AM COMPARISON: NONE CLINICAL HISTORY: Difficulty in swallowing. Preliminary view of the abdomen reveals a normal bowel gas pattern. Upper GI examination was performed according to the air contrast technique. Barium and effervescent crystal was swallowed without difficulty or delay. Esophageal peristalsis and motility are within no rmal limits. There is no evidence for esophagitis, intraluminal mass. Moderate fixed hiatal hernia w ith gastroesophageal reflux noted extending to the proximal thoracic esophagus. The stomach has a nor mal appearance in terms of its size, shape and location. No gastric filling defects or ulcer craters are seen. The duodenal bulb and sweep are also free of intraluminal lesion or ulcer crater. And single contrast cervical esophagram was also performed following the ingestion of thin liquid bar ium. There is no evidence for aspiration or penetration. No masses are seen. No filling defects ar e evident. IMPRESSION: Moderate fixed hiatal hernia with gastroesophageal reflux noted extending to the proximal thoracic es ophagus.
== END | disposition home or self-care (01) ==
LOC: RADUSWWP 09:55
PROVIDERS: ATTEND Surgery
DX: K21.9 Gastro-esophageal reflux disease without esophagitis (principal); K44.9 Diaphragmatic hernia without obstruction or gangrene; R13.10 Dysphagia, unspecified
CPT/HCPCS: 74246

== ENCOUNTER → 2023-05-13 | Outpatient (CLI) | payer MEDICARE ==
[2023-05-14 02:39] LABS: Basophils # (A) 0.07 X 10*3/uL (0.00-0.10); Eosinophils # (A) 0.14 X 10*3/uL (0.04-0.35); HCT 47.2 % (37.2-46.3); HGB 14.8 g/dL (12.0-15.0); Lymphocytes # (A) 2.14 X 10*3/uL (0.90-5.00); Lymphocytes % (A) 30.2 %; MCH 31.2 pg (27.0-32.0); MCHC 31.4 g/dL (32.0-37.0); MCV 99.4 FL (80.0-97.0); Mean Platelet Volume 10.9 FL (9.5-12.2); Monocytes # (A) 0.46 X 10*3/uL (0.20-1.00); Monocytes % (A) 6.5 %; NRBC Per 100 WBC 0 X 10*3/uL (0.00-0.01); Neutrophils # (A) 4.24 X 10*3/uL (1.80-7.70); Neutrophils % (A) 59.9 %; Platelet Count 271 X 10*3/uL (140-440); RBC 4.75 X 10*6/uL (4.10-5.20); RDW 13.6 % (11.5-14.5); WBC 7.08 X 10*3/uL (4.50-10.00)
== END | disposition home or self-care (01) ==
LOC: LABPAT 14:44
PROVIDERS: ATTEND Surgery
DX: Z01.818 Encounter for other preprocedural examination (principal); K44.9 Diaphragmatic hernia without obstruction or gangrene; R94.31 Abnormal electrocardiogram [ECG] [EKG]
CPT/HCPCS: 85025; 93005

== ENCOUNTER 2023-05-19 10:56 | Day surgery (SDC) | payer MEDICARE ==
[~2023-05-19 10:56] MED LIST changes: +ACETAMINOPHEN TAB 500 MG TAB PO PRN; +DEXAMETHASONE SOD PHOSPHATE 4 MG/ML 1 ML VIAL IV ONE; +HEPARIN SODIUM,PORCINE/PF 5,000 UNIT/0.5 ML SYRINGE SQ PRN; +MIDAZOLAM 2 MG/2 ML VIAL IV PRN; +ONDANSETRON 4 MG/2 ML VIAL IVP ONE; -REGADENOSON 0.4 MG/5 ML SYRINGE IV PRN; +SCOPOLAMINE 1 MG/72 HR PATCH TRANSDERM ONE
[2023-05-19] MEDS: LACTATED RINGERS 1,000 ML IV SCH ×2 (11:46→15:01)
--- NOTE | 2023-05-19 12:43 | P.GSHP ---
History of Present Illness H&P Date: 05/19/23 Female who's had issues with dysphagia and GERD. Patient's found have evidence of a hiatal hernia. Patient presents today for laparoscopic repair. Past Medical History Past Medical History: Cancer, COPD, GERD/Reflux, Hyperlipidemia, Hypertension, Sleep Apnea/CPAP/BIPAP, Thyroid Disorder Additional Past Medical History / Comment(s): Hx Covid 06-06-20. Migraines. Sleep apnea resolved with wt loss. Severe vertigo, uses cane as needed. Low heart rate. Hx colon polyp. Chronic back pain. Aortic aneurysm. Hx left breast cancer with surgery 06/2019, no radiation, had oral chemo. Internal hemorrhoids. Spinal stimulator-posterior lower left hip area. History of Any Multi-Drug Resistant Organisms: None Reported Past Surgical History: Bariatric Surgery, Bladder Surgery, Breast Surgery, Orthopedic Surgery Additional Past Surgical History / Comment(s): Loop recorder inserted and removed, eye surgery, left thumb surgery, right hand ring finger surgery, EGD, colonoscopy, Double Mastectomy (06/2019), Panniculectomy, sleeve gastrectomy (04-20-18), nerve stimulator placed. Past Anesthesia/Blood Transfusion Reactions: No Reported Reaction, Motion Sickness Additional Past Anesthesia/Blood Transfusion Reaction / Comment(s): . Type of Cardiac Device: Loop Device Placement Date:: 2019 Smoking Status: Current some day smoker - Past Family History Mother Family Medical History: Cancer Additional Family Medical History / Comment(s): Mother at age 54 due to lung cancer. Patient has 2 aunts that had breast cancer. Patient does not have any children. Father Family Medical History: Coronary Artery Disease (CAD), Diabetes Mellitus Additional Family Medical History / Comment(s): Father is alive with history of CAD, DM and is on home O2. She does not know any further details. Sister(s) Family Medical History: No Reported History Additional Family Medical History / Comment(s): Patient has 2 sisters and one half-sister with no major medical problems. Brother(s) Family Medical History: Coronary Artery Disease (CAD) Additional Family Medical History / Comment(s): Patient has one brother with history of coronary artery disease status post CABG in heart failure. Medications and Allergies Home Medications Medication Instructions Recorded Confirmed Type traZODone HCL [Desyrel] 100 mg PO HS 11/21/14 05/15/23 History Montelukast [Singulair] 10 mg PO HS 12/27/15 05/15/23 History Atorvastatin [Lipitor] 10 mg PO HS 11/24/17 05/15/23 History Baclofen [Lioresal] 10 mg PO BID 05/25/18 05/15/23 History Omeprazole [PriLOSEC] 20 mg PO BID 06/22/18 05/15/23 History SUMAtriptan succinate [Imitrex] 100 mg PO BID PRN 06/22/18 05/15/23 History Meclizine [Antivert] 25 mg PO BID 02/05/19 05/15/23 History Vitamin C/Biotin [Hair, Skin and 1 tab PO BID 03/04/19 05/15/23 History Nails Chew] Anastrozole [Arimidex] 1 mg PO DAILY 10/22/19 05/15/23 History Cyanocobalamin [Vitamin B-12] 1,500 mcg PO DAILY 10/22/19 05/15/23 History Ferrous Sulfate [Iron (65 MG 325 mg PO DAILY 10/22/19 05/15/23 History Elemental)] L.acidoph,Paracasei, B.lactis 1 cap PO DAILY 10/22/19 05/15/23 History [Probiotic] Terazosin [Hytrin] 1 mg PO HS 10/22/19 05/15/23 History diphenhydrAMINE [Benadryl] 25 mg PO DAILY 10/22/19 05/15/23 History Multivit with Calcium,Iron,Min 1 tab PO BID 11/18/19 05/15/23 History [Women's Multivitamin] Magnesium 500 mg PO HS 06/30/20 05/15/23 History Aspirin EC [Ecotrin Low Dose] 81 mg PO DAILY 10/09/21 05/15/23 History Calcium Plus 1,000 mg PO DAILY 10/09/21 05/15/23 History Calcium Plus 500 mg PO HS 10/09/21 05/15/23 History Cholecalciferol [Vitamin D3 (125 125 mcg PO DAILY 10/09/21 05/15/23 History Mcg = 5000 Iu)] Cyclobenzaprine [Flexeril] 10 mg PO BID 10/09/21 05/15/23 History Levothyroxine Sodium [Synthroid] 112 mcg PO QAM 10/09/21 05/15/23 History Potassium Gluconate [Potassium 99 mg PO HS 10/09/21 05/15/23 History Gluconate ER] Prochlorperazine [Compazine] 10 mg PO BID PRN 10/09/21 05/15/23 History Varenicline [Chantix Continuing 1 mg PO DAILY 10/09/21 05/15/23 History Pack] Vit C/E/Zn/Coppr/Lutein/Zeaxan 1 cap PO DAILY 10/09/21 05/15/23 History [Preservision Areds 2 Softgel] rOPINIRole HCL [Requip] 0.5 mg PO HS 10/09/21 05/15/23 History Alendronate Sodium [Fosamax] 70 mg PO WEEKLY 08/19/22 05/15/23 History Aric Headache 1 dose PO DIRECTED PRN 08/19/22 05/15/23 History Clindamycin Phosphate [Clindagel 1 applic TOPICAL DAILY PRN 08/19/22 05/15/23 History 1%] Linaclotide [Linzess] 145 mcg PO DAILY PRN 08/19/22 05/15/23 History Prebiotic 1 dose PO DAILY 08/19/22 05/15/23 History Propranolol LA [Inderal LA] 80 mg PO HS 08/19/22 05/15/23 History polyethylene glycoL 3350 [Miralax] 17 gm PO DAILY PRN 08/19/22 05/15/23 History Allergies Allergy/AdvReac Type Severity Reaction Status Date / Time latex Allergy Rash/Hives Verified 05/19/23 11:30 nickel Allergy Rash/Hives Verified 05/19/23 11:30 paper tape Allergy Rash/Hives Uncoded 05/19/23 11:30 Surgical - Exam Vital Signs Temp Pulse Resp BP Pulse Ox 97.3 F L 82 18 91/67 96 05/19/23 11:28 05/19/23 11:28 05/19/23 11:28 05/19/23 11:28 05/19/23 11:28 - General well developed, well nourished, no distress - Eyes PERRL - ENT normal pinna - Neck no masses - Respiratory normal expansion - Cardiovascular Rhythm: regular - Abdomen Abdomen: soft, non tender Assessment and Plan Assessment: Hiatal hernia. We'll perform laparoscopic repair.
[2023-05-19] MEDS ORDERED: fentaNYL (PF) 50 MCG/ML 2 ML AMP ONE (12:50)
[2023-05-19] MEDS ORDERED: MIDAZOLAM 2 MG/2 ML VIAL ONE (12:50)
[2023-05-19] MEDS ORDERED: NEOSTIGMINE 1 MG/ML 10 ML VIAL ONE (12:50)
[2023-05-19] MEDS ORDERED: ePHEDrine 50 MG/ML 1 ML VIAL ONE (12:50)
[2023-05-19] MEDS ORDERED: ROCURONIUM 10 MG/ML (5 ML VIAL) IV ONE (12:50)
[2023-05-19] MEDS ORDERED: SUCCINYLCHOLINE CHLORIDE 200 MG/10 ML VIAL IV ONE (12:50)
[2023-05-19] MEDS ORDERED: LIDOCAINE 1% INJ 10MG/ML (20 ML MDV) ONE (12:50)
[2023-05-19] MEDS ORDERED: SUGAMMADEX SODIUM 200 MG/2 ML SDV IV ONE (12:50)
[2023-05-19] MEDS ORDERED: PROPOFOL 10 MG/ML 20 ML VIAL IV ONE (12:50)
[2023-05-19] MEDS ORDERED: GLYCOPYRROLATE 0.2 MG/ML 2 ML VIAL ONE (12:50)
[2023-05-19] MEDS ORDERED: PHENYLEPHRINE-0.9% NACL SYG 1,000 MCG/10 ML SYRINGE ONE (12:50)
[2023-05-19] MEDS ORDERED: LIDOCAINE 0.5%-EPI 1:200,000 50 ML VIAL SQ ONE ×2 (12:53)
--- NOTE | 2023-05-19 14:35 | P.OP ---
Date of Procedure: 05/19/23 Preoperative Diagnosis: Hiatal hernia Postoperative Diagnosis: Hiatal hernia Procedure(s) Performed: Laparoscopic repair of hiatal hernia with [place] bio a mesh Transversus abdominis plane block Anesthesia: NAIN Surgeon: Navid Coley Estimated Blood Loss (ml): 25 Pathology: none sent Condition: stable Disposition: PACU Description of Procedure: The patient was placed on the operating table in the supine position. She received general anesthesia. She was then placed in dorsal lithotomy position. Her abdomen was prepped and draped in the usual sterile fashion. The skin incision sites were anesthetized with 1% local Xylocaine. The skin was incised in the left periumbilical area with an 11 scalpel. Using a 5 mm blade was trocar under direct visitation the peritoneal cavity was entered. And then insufflated. After adequate insufflation the laparoscope was placed back into the peritoneal cavity. Next a 5 mm trocar was placed in the right epigastric and then the right lateral position. Another 5 mm trochars placed in the left lateral position. Another 5 mm trocar placed in the left epigastric position. And the original left periumbilical trocar was exchanged for a 10 mm trocar. A four-quadrant transversus abdominis plane block was then performed with 1% local Xylocaine. The left lateral lobe liver was retracted. The patient had a large hiatal hernia. Using the Harmonic scissors the crural defect was dissected in the Harmonic scissors were used to dissect the hiatal hernia sac. The fundus of the stomach was completely mobilized by dividing the adhesions to the stomach. The patient had a a previous sleeve gastrectomy. . The stomach was reduced into the peritoneal cavity. The crura was dissected with the Harmonic scissors. And then the crural repair was performed using 2-0 Ethibond suture. The [place] bio A mesh was then placed over top of the repair and secured with 2-0 Ethibond suture. The stomach and esophagus were inspected there is known to any injury to the stomach or esophagus. The abdomen was irrigated there is no bleeding seen. The trochars are withdrawn. Skin was closed interrupted 3-0 Monocryl suture. Dermabond was applied. Patient tolerated procedure well and was sent to recovery in stable condition.
[2023-05-19] MEDS: HYDROmorphone 0.5 MG/0.5 ML SYRINGE IVP PRN ×2 (14:46→15:28)
[2023-05-19] MEDS: HYDROmorphone 1 MG/ML 1 ML SYRINGE IVP PRN ×2 (18:10→21:50)
[2023-05-19] MEDS: D5-0.45% NACL WITH KCL 20MEQ/L 1,000 ML IV SCH (21:29)
[2023-05-20] MEDS: D5-0.45% NACL WITH KCL 20MEQ/L 1,000 ML IV SCH ×3 (02:00→15:26)
[2023-05-20] MEDS: HYDROmorphone 1 MG/ML 1 ML SYRINGE IVP PRN ×3 (03:14→15:19)
[2023-05-20] MEDS: ENOXAPARIN 40 MG/0.4 ML SYRINGE SQ SCH (08:43)
[2023-05-20] MEDS: ONDANSETRON 4 MG/2 ML VIAL IVP PRN (10:13)
[2023-05-20] MEDS ORDERED: NON FORMULARY DRUG (Linaclotide [Linzess] 145 MCG Capsule) PO PRN (10:17)
--- NOTE | 2023-05-20 11:53 | P.PN ---
Subjective Progress Note Date: 05/20/23 CHIEF COMPLAINT: Hiatal hernia HISTORY OF PRESENT ILLNESS: Patient is postop day #1 status post laparoscopic repair of hiatal hernia with mesh. Patient had 2 episodes of vomiting this morning. She reports her pain is controlled. She feels very weak. She has been wobbly on her feet. Her oxygen saturation does drop down to 88% with ambulating. She is requiring O2. She does not wear O2 at home. She does have history of COPD. Afebrile. Labs for today pending PHYSICAL EXAM: VITAL SIGNS: Reviewed. GENERAL: Well-developed in no acute distress. ABDOMEN: Soft. Nondistended. Incision sites clean dry and intact NEUROLOGIC: Alert and oriented. Cranial nerves II through XII grossly intact. ASSESSMENT: 1. Hiatal hernia status post laparoscopic repair of hiatal hernia with mesh 2. Hypoxia PLAN: -Continue Miquel clear liquid diet -Incentive spirometer ordered -Consult physical therapy to help ambulate patient -Consult medicine service for medical management -Continue antiemetics -Continue IV fluids -DVT prophylaxis Lovenox and Add IV Protonix for nausea and GI prophylaxis Physician Flower Machine Operator note has been reviewed by physician. Signing provider agrees with the documented findings, assessment, and plan of care. Objective - Vital Signs Vital signs: Vital Signs Temp 97.6 F 05/20/23 07:20 Pulse 78 05/20/23 07:20 Resp 22 05/20/23 07:20 BP 94/63 05/20/23 07:20 Pulse Ox 92 L 05/20/23 07:20 FiO2 Intake & Output 05/19/23 05/20/23 05/20/23 18:59 06:59 18:59 Intake Total 1450 1080 Output Total 25 Balance 1425 1080 Weight 94.3 kg Intake: IV 1450 Oral 1080 Output: Estimated Blood Loss 25 Other: Voiding Method Toilet # Voids 1 8
[2023-05-20 11:57] LABS: African American GFR (CKD) 89 (>60 ml/min/1.73 sqM); Anion Gap 2 mmol/L; Blood Urea Nitrogen 8 mg/dL (7-17); Calcium 7.3 mg/dL (8.4-10.2); Carbon Dioxide 27 mmol/L (22-30); Chloride 104 mmol/L (98-107); Glucose 366 mg/dL (74-99); Non-African American GFR(CKD) 77 (>60 ml/min/1.73 sqM); Potassium 5.4 mmol/L (3.5-5.1); Sodium 133 mmol/L (137-145)
[2023-05-20 11:58] LABS: HCT 34.9 % (34.0-46.0); Hypochromasia Marked; MCH 31.8 pg (25.0-35.0); MCHC 30.7 g/dL (31.0-37.0); Macrocytosis Slight; Mean Platelet Volume 9.1; Platelet Count 156 k/uL (150-450); RBC 3.38 m/uL (3.80-5.40); WBC 7.1 k/uL (3.8-10.6)
[2023-05-20 12:00] LABS: HGB 10.7 gm/dL (11.4-16.0)
[2023-05-20 12:01] LABS: MCV 103.4 fL (80.0-100.0)
[2023-05-20] MEDS ORDERED: DEXTROSE 50% SYRINGE 50 ML IVP ONE (12:30)
[2023-05-20] MEDS ORDERED: CALCIUM GLUCONATE IN NACL 1 GM in SALINE 1 100ML.BAG IVPB ONE (12:30)
[2023-05-20] MEDS ORDERED: INSULIN REGULAR 100 UNIT/ML VIAL (IV) IV ONE (12:30)
--- NOTE | 2023-05-20 12:34 | P.CONS ---
History of Present Illness - Reason for Consult Consult date: 05/20/23 - Chief Complaint Status post surgery - History of Present Illness * 62-year-old patient with past medical history significant for metastatic breast cancer , history of COPD, hypertension, aortic aneurysm, dyslipidemia, hypothyroid, obstructive sleep apnea, dysphagia, gastroesophageal reflux disea se, history of hiatal hernia * Patient is seen postoperatively after hiatal hernia repair, internal medicine team was consulted for medical management * Postprocedure blood work requested including CBC and basic metabolic panel, patient past medical records and home medications reviewed * Postprocedure vitals reviewed, blood pressure noted to be 10 5 x 68 with map of 80, patient on 2 L of oxygen through nasal cannula * Patient is status post laparoscopic repair of vital hernia postoperative day one REVIEW OF SYSTEMS: Abdominal discomfort, nausea CONSTITUTIONAL: No fever, no malaise, no fatigue. HEENT: No recent visual problems or hearing problems. Denied any sore throat. CARDIOVASCULAR: No chest pain, orthopnea, PND, no palpitations, no syncope. PULMONARY: No shortness of breath, no cough, no hemoptysis. GASTROINTESTINAL: Abdominal discomfort, nausea NEUROLOGICAL: No headaches, no weakness, no numbness. HEMATOLOGICAL: Denies any bleeding or petechiae. GENITOURINARY: Denies any burning micturition, frequency, or urgency. MUSCULOSKELETAL/RHEUMATOLOGICAL: Denies any joint pain, swelling, or any muscle pain. ENDOCRINE: Denies any polyuria or polydipsia. PHYSICAL EXAMINATION: GENERAL: The patient is alert and oriented x3, ill appearance, obese HEENT: Pupils are round and equally reacting to light. EOMI. CARDIOVASCULAR: S1 and S2 present. No murmurs, rubs, or gallops. PULMONARY: Chest is clear to auscultation, no wheezing or crackles. ABDOMEN: Soft, nontender, surgical incision intact, bowel sounds present MUSCULOSKELETAL: No joint swelling or deformity. EXTREMITIES: No cyanosis, clubbing, or pedal edema. NEUROLOGICAL: Gross neurological examination did not reveal any focal deficits. SKIN: No rashes. Past Medical History Past Medical History: Cancer, COPD, GERD/Reflux, Hyperlipidemia, Hypertension, Sleep Apnea/CPAP/BIPAP, Thyroid Disorder Additional Past Medical History / Comment(s): Hx Covid 06-06-20. Migraines. Sleep apnea resolved with wt loss. Severe vertigo, uses cane as needed. Low heart rate. Hx colon polyp. Chronic back pain. Aortic aneurysm. Hx left breast cancer with surgery 06/2019, no radiation, had oral chemo. Internal hemorrhoids. Spinal stimulator-posterior lower left hip area. History of Any Multi-Drug Resistant Organisms: None Reported Past Surgical History: Bariatric Surgery, Bladder Surgery, Breast Surgery, Orthopedic Surgery Additional Past Surgical History / Comment(s): Loop recorder inserted and removed, eye surgery, left thumb surgery, right hand ring finger surgery, EGD, colonoscopy, Double Mastectomy (06/2019), Panniculectomy, sleeve gastrectomy (04-20-18), nerve stimulator placed. Past Anesthesia/Blood Transfusion Reactions: No Reported Reaction, Motion Sickness Additional Past Anesthesia/Blood Transfusion Reaction / Comm: . Type of Cardiac Device: Loop Device Placement Date:: 2019 Smoking Status: Current some day smoker - Past Family History Mother Family Medical History: Cancer Additional Family Medical History / Comment(s): Mother at age 54 due to lung cancer. Patient has 2 aunts that had breast cancer. Patient does not have any children. Father Family Medical History: Coronary Artery Disease (CAD), Diabetes Mellitus Additional Family Medical History / Comment(s): Father is alive with history of CAD, DM and is on home O2. She does not know any further details. Sister(s) Family Medical History: No Reported History Additional Family Medical History / Comment(s): Patient has 2 sisters and one half-sister with no major medical problems. Brother(s) Family Medical History: Coronary Artery Disease (CAD) Additional Family Medical History / Comment(s): Patient has one brother with history of coronary artery disease status post CABG in heart failure. Medications and Allergies Home Medications Medication Instructions Recorded Confirmed Type traZODone HCL [Desyrel] 100 mg PO HS 11/21/14 05/15/23 History Montelukast [Singulair] 10 mg PO HS 12/27/15 05/15/23 History Atorvastatin [Lipitor] 10 mg PO HS 11/24/17 05/15/23 History Baclofen [Lioresal] 10 mg PO BID 05/25/18 05/15/23 History Omeprazole [PriLOSEC] 20 mg PO BID 06/22/18 05/15/23 History SUMAtriptan succinate [Imitrex] 100 mg PO BID PRN 06/22/18 05/15/23 History Meclizine [Antivert] 25 mg PO BID 02/05/19 05/15/23 History Vitamin C/Biotin [Hair, Skin and 1 tab PO BID 03/04/19 05/15/23 History Nails Chew] Anastrozole [Arimidex] 1 mg PO DAILY 10/22/19 05/15/23 History Cyanocobalamin [Vitamin B-12] 1,500 mcg PO DAILY 10/22/19 05/15/23 History Ferrous Sulfate [Iron (65 MG 325 mg PO DAILY 10/22/19 05/15/23 History Elemental)] L.acidoph,Paracasei, B.lactis 1 cap PO DAILY 10/22/19 05/15/23 History [Probiotic] Terazosin [Hytrin] 1 mg PO HS 10/22/19 05/15/23 History diphenhydrAMINE [Benadryl] 25 mg PO DAILY 10/22/19 05/15/23 History Multivit with Calcium,Iron,Min 1 tab PO BID 11/18/19 05/15/23 History [Women's Multivitamin] Magnesium 500 mg PO HS 06/30/20 05/15/23 History Aspirin EC [Ecotrin Low Dose] 81 mg PO DAILY 10/09/21 05/15/23 History Calcium Plus 1,000 mg PO DAILY 10/09/21 05/15/23 History Calcium Plus 500 mg PO HS 10/09/21 05/15/23 History Cholecalciferol [Vitamin D3 (125 125 mcg PO DAILY 10/09/21 05/15/23 History Mcg = 5000 Iu)] Cyclobenzaprine [Flexeril] 10 mg PO BID 10/09/21 05/15/23 History Levothyroxine Sodium [Synthroid] 112 mcg PO QAM 10/09/21 05/15/23 History Potassium Gluconate [Potassium 99 mg PO HS 10/09/21 05/15/23 History Gluconate ER] Prochlorperazine [Compazine] 10 mg PO BID PRN 10/09/21 05/15/23 History Varenicline [Chantix Continuing 1 mg PO DAILY 10/09/21 05/15/23 History Pack] Vit C/E/Zn/Coppr/Lutein/Zeaxan 1 cap PO DAILY 10/09/21 05/15/23 History [Preservision Areds 2 Softgel] rOPINIRole HCL [Requip] 0.5 mg PO HS 10/09/21 05/15/23 History Alendronate Sodium [Fosamax] 70 mg PO WEEKLY 08/19/22 05/15/23 History Aric Headache 1 dose PO DIRECTED PRN 08/19/22 05/15/23 History Clindamycin Phosphate [Clindagel 1 applic TOPICAL DAILY PRN 08/19/22 05/15/23 History 1%] Linaclotide [Linzess] 145 mcg PO DAILY PRN 08/19/22 05/15/23 History Prebiotic 1 dose PO DAILY 08/19/22 05/15/23 History Propranolol LA [Inderal LA] 80 mg PO HS 08/19/22 05/15/23 History polyethylene glycoL 3350 [Miralax] 17 gm PO DAILY PRN 08/19/22 05/15/23 History Allergies Allergy/AdvReac Type Severity Reaction Status Date / Time latex Allergy Rash/Hives Verified 05/19/23 11:30 nickel Allergy Rash/Hives Verified 05/19/23 11:30 paper tape Allergy Rash/Hives Uncoded 05/19/23 11:30 Physical Exam Vitals: Vital Signs Temp Pulse Resp BP Pulse Ox 05/20/23 07:20 97.6 F 78 22 94/63 92 L 05/20/23 02:00 97.8 F 16 107/71 93 L 05/19/23 20:00 97.4 F L 77 16 113/74 90 L 05/19/23 17:51 71 105/68 94 L 05/19/23 17:37 75 108/72 96 05/19/23 17:20 69 115/74 93 L 05/19/23 15:58 72 16 102/68 94 L 05/19/23 15:30 73 16 91/55 92 L 05/19/23 15:15 76 16 91 L 05/19/23 15:00 75 16 88/54 96 05/19/23 14:45 80 16 111/63 92 L 05/19/23 14:28 84 16 124/56 96 05/19/23 14:12 98.1 F 88 16 144/78 98 05/19/23 11:28 97.3 F L 82 18 91/67 96 Intake and Output 05/19/23 05/20/23 05/20/23 22:59 06:59 14:59 Intake Total 1060 420 Balance 1060 420 Intake: IV 400 Oral 660 420 Other: Voiding Method Toilet # Voids 1 8 Results CBC & Chem 7: 05/20/23 11:20 05/20/23 11:20 Assessment and Plan Assessment: Assessment and plan History of hiatal hernia status post laparoscopic repair postoperative day 1 Acute anemia Transient hyperkalemia History of COPD History of breast cancer Iron deficiency anemia history History of restless leg syndrome Hypothyroid * Postoperative day one, follow-up on CBC basic metabolic panel, postoperative management per general surgery team * In regards to transient hyperkalemia, patient given insulin and dextrose in follow-up potassium levels to be checked, will hold off on lolelma postoperatively * In regards to chronic medical issues home medications reviewed and reconciled * Continue patient on fluid resuscitation for surgery, noted to have low blood pressure * In regards to restless leg syndrome home medications continued * In regards to hypothyroid continue patient on Synthyroid * CODE STATUS is full code Time with Patient: Greater than 30
[2023-05-20 14:22] LABS: Glucose,Whole Blood 104 mg/dL (70-110)
[2023-05-20] MEDS: PANTOPRAZOLE 40 MG/10 ML VIAL IVP SCH (15:19)
[2023-05-20 18:46] LABS: African American GFR (CKD) 78 (>60 ml/min/1.73 sqM); Anion Gap 9 mmol/L; Blood Urea Nitrogen 7 mg/dL (7-17); Calcium 8.2 mg/dL (8.4-10.2); Carbon Dioxide 24 mmol/L (22-30); Chloride 105 mmol/L (98-107); Glucose 146 mg/dL (74-99); Non-African American GFR(CKD) 68 (>60 ml/min/1.73 sqM); Potassium 4.3 mmol/L (3.5-5.1); Sodium 138 mmol/L (137-145)
[2023-05-20] MEDS: MECLIZINE 25 MG TAB PO SCH (20:22)
[2023-05-20] MEDS: CYCLOBENZAPRINE 10 MG TAB PO SCH (20:22)
[2023-05-20] MEDS: BACLOFEN 10 MG TAB PO SCH (20:22)
[2023-05-20] MEDS ORDERED: ATORVASTATIN 10 MG TAB PO SCH (21:00)
[2023-05-20] MEDS ORDERED: PROPRANOLOL LA 80 MG CAP.SA.24H PO SCH (21:00)
[2023-05-20] MEDS ORDERED: traZODone HCL 100 MG TAB PO SCH (21:00)
[2023-05-20] MEDS ORDERED: DOXAZOSIN 1 MG TAB PO SCH (21:00)
[2023-05-20] MEDS ORDERED: MONTELUKAST 10 MG TAB PO SCH (21:00)
[2023-05-21] MEDS: HYDROmorphone 1 MG/ML 1 ML SYRINGE IVP PRN ×3 (01:22→09:43)
[2023-05-21] MEDS: D5-0.45% NACL WITH KCL 20MEQ/L 1,000 ML IV SCH ×2 (01:23→06:29)
[2023-05-21] MEDS ORDERED: LEVOTHYROXINE 112 MCG TAB PO SCH (06:30)
[2023-05-21 08:20] VITALS: BP 118/75; PULSE 95; RESP 16; TEMP 98
[2023-05-21] MEDS: ENOXAPARIN 40 MG/0.4 ML SYRINGE SQ SCH (08:57)
[2023-05-21] MEDS: BACLOFEN 10 MG TAB PO SCH (08:57)
[2023-05-21] MEDS: PANTOPRAZOLE 40 MG/10 ML VIAL IVP SCH (08:57)
[2023-05-21] MEDS: MECLIZINE 25 MG TAB PO SCH (08:57)
[2023-05-21] MEDS: CYCLOBENZAPRINE 10 MG TAB PO SCH (08:57)
[2023-05-21] MEDS ORDERED: ANASTROZOLE 1 MG TAB PO SCH (09:00)
[2023-05-21] MEDS ORDERED: CHOLECALCIFEROL 125 MCG (5000 IU) TABLET PO SCH (09:00)
[2023-05-21] MEDS: ONDANSETRON 4 MG/2 ML VIAL IVP PRN (09:04)
[2023-05-21] MEDS ORDERED: SUMAtriptan succinate 50 MG TAB PO PRN (09:08)
[2023-05-21] MEDS ORDERED: HYDROcodone/APAP 5-325MG 1 EACH TAB PO PRN (09:24)
[2023-05-21] MEDS: LACTATED RINGERS 1,000 ML IV SCH (09:51)
[2023-05-21 10:50] LABS: HCT 37.5 % (37.2-46.3); HGB 11.5 g/dL (12.0-15.0); MCH 30.7 pg (27.0-32.0); MCHC 30.7 g/dL (32.0-37.0); MCV 100.3 FL (80.0-97.0); Mean Platelet Volume 10.8 FL (9.5-12.2); NRBC Per 100 WBC 0 X 10*3/uL (0.00-0.01); Platelet Count 162 X 10*3/uL (140-440); RBC 3.74 X 10*6/uL (4.10-5.20); RDW 14.1 % (11.5-14.5); WBC 5.65 X 10*3/uL (4.50-10.00)
[2023-05-21 11:01] LABS: BUN/Creat Ratio <3.89 Ratio (12.00-20.00); Blood Urea Nitrogen <3.5 mg/dL (9.0-27.0); Calcium 7.9 mg/dL (8.7-10.3); Carbon Dioxide 26.1 mmol/L (21.6-31.8); Chloride 105 mmol/L (96-109); Glucose 169 mg/dL (70-110); Potassium 4.2 mmol/L (3.5-5.5); Sodium 137 mmol/L (135-145)
--- NOTE | 2023-05-21 11:20 | P.DS ---
Providers Expected date of discharge: 05/21/23 Attending physician: Navid Coley Consults: 05/19/23 14:35 Consult Physician Routine Consulting Provider: Vernon Loya Consult Reason/Comments: Management Do you want consulting provider notified?: Yes Primary care physician: Hugo Preston Hospital Course: Discharge diagnosis 1. Hiatal hernia status post laparoscopic repair of hiatal hernia with mesh Hospital course This is a 62-year-old female with a known hiatal hernia. She is status post laparoscopic repair Hiatal hernia with mesh. Patient's vomiting has resolved. She did have a bowel movement. Patient is controlled. She has been up ambulating. She is afebrile. She complains of a migraine headache and her Imitrex was restarted. Patient is stable for discharge. Please refer to chart for any further details. Physician Grease Refining Supervisor note has been reviewed by physician. Signing provider agrees with the documented findings, assessment, and plan of care. Patient Condition at Discharge: Stable Plan - Discharge Summary Discharge Rx Participant: No New Discharge Prescriptions: New oxyCODONE HCL [OxyIR] 5 mg PO Q6H PRN 3 Days #12 tab PRN Reason: Pain Acetaminophen Tab [Tylenol Tab] 650 mg PO Q4H PRN #30 tablet PRN Reason: Pain Continue traZODone HCL [Desyrel] 100 mg PO HS Montelukast [Singulair] 10 mg PO HS Atorvastatin [Lipitor] 10 mg PO HS Baclofen [Lioresal] 10 mg PO BID SUMAtriptan succinate [Imitrex] 100 mg PO BID PRN PRN Reason: pain Omeprazole [PriLOSEC] 20 mg PO BID Meclizine [Antivert] 25 mg PO BID Vitamin C/Biotin [Hair, Skin and Nails Chew] 1 tab PO BID diphenhydrAMINE [Benadryl] 25 mg PO DAILY Ferrous Sulfate [Iron (65 MG Elemental)] 325 mg PO DAILY Terazosin [Hytrin] 1 mg PO HS Cyanocobalamin [Vitamin B-12] 1,500 mcg PO DAILY Anastrozole [Arimidex] 1 mg PO DAILY L.acidoph,Paracasei, B.lactis [Probiotic] 1 cap PO DAILY Multivit with Calcium,Iron,Min [Women's Multivitamin] 1 tab PO BID Magnesium 500 mg PO HS Vit C/E/Zn/Coppr/Lutein/Zeaxan [Preservision Areds 2 Softgel] 1 cap PO DAILY Prochlorperazine [Compazine] 10 mg PO BID PRN PRN Reason: Nausea Varenicline [Chantix Continuing Pack] 1 mg PO DAILY Cyclobenzaprine [Flexeril] 10 mg PO BID Potassium Gluconate [Potassium Gluconate ER] 99 mg PO HS Propranolol LA [Inderal LA] 80 mg PO HS Clindamycin Phosphate [Clindagel 1%] 1 applic TOPICAL DAILY PRN PRN Reason: Acne polyethylene glycoL 3350 [Miralax] 17 gm PO DAILY PRN PRN Reason: Constipation Prebiotic 1 dose PO DAILY Cholecalciferol [Vitamin D3 (125 Mcg = 5000 Iu)] 125 mcg PO DAILY Calcium Plus 500 mg PO HS Calcium Plus 1,000 mg PO DAILY Aspirin EC [Ecotrin Low Dose] 81 mg PO DAILY rOPINIRole HCL [Requip] 0.5 mg PO HS Levothyroxine Sodium [Synthroid] 112 mcg PO QAM Alendronate Sodium [Fosamax] 70 mg PO WEEKLY Linaclotide [Linzess] 145 mcg PO DAILY PRN PRN Reason: gi issues Aric Headache 1 dose PO DIRECTED PRN PRN Reason: Headache Discharge Medication List traZODone HCL [Desyrel] 100 mg PO HS 11/21/14 [History] Montelukast [Singulair] 10 mg PO HS 12/27/15 [History] Atorvastatin [Lipitor] 10 mg PO HS 11/24/17 [History] Baclofen [Lioresal] 10 mg PO BID 05/25/18 [History] Omeprazole [PriLOSEC] 20 mg PO BID 06/22/18 [History] SUMAtriptan succinate [Imitrex] 100 mg PO BID PRN 06/22/18 [History] Meclizine [Antivert] 25 mg PO BID 02/05/19 [History] Vitamin C/Biotin [Hair, Skin and Nails Chew] 1 tab PO BID 03/04/19 [History] Anastrozole [Arimidex] 1 mg PO DAILY 10/22/19 [History] Cyanocobalamin [Vitamin B-12] 1,500 mcg PO DAILY 10/22/19 [History] Ferrous Sulfate [Iron (65 MG Elemental)] 325 mg PO DAILY 10/22/19 [History] L.acidoph,Paracasei, B.lactis [Probiotic] 1 cap PO DAILY 10/22/19 [History] Terazosin [Hytrin] 1 mg PO HS 10/22/19 [History] diphenhydrAMINE [Benadryl] 25 mg PO DAILY 10/22/19 [History] Multivit with Calcium,Iron,Min [Women's Multivitamin] 1 tab PO BID 11/18/19 [History] Magnesium 500 mg PO HS 06/30/20 [History] Aspirin EC [Ecotrin Low Dose] 81 mg PO DAILY 10/09/21 [History] Calcium Plus 1,000 mg PO DAILY 10/09/21 [History] Calcium Plus 500 mg PO HS 10/09/21 [History] Cholecalciferol [Vitamin D3 (125 Mcg = 5000 Iu)] 125 mcg PO DAILY 10/09/21 [History] Cyclobenzaprine [Flexeril] 10 mg PO BID 10/09/21 [History] Levothyroxine Sodium [Synthroid] 112 mcg PO QAM 10/09/21 [History] Potassium Gluconate [Potassium Gluconate ER] 99 mg PO HS 10/09/21 [History] Prochlorperazine [Compazine] 10 mg PO BID PRN 10/09/21 [History] Varenicline [Chantix Continuing Pack] 1 mg PO DAILY 10/09/21 [History] Vit C/E/Zn/Coppr/Lutein/Zeaxan [Preservision Areds 2 Softgel] 1 cap PO DAILY 10/09/21 [History] rOPINIRole HCL [Requip] 0.5 mg PO HS 10/09/21 [History] Alendronate Sodium [Fosamax] 70 mg PO WEEKLY 08/19/22 [History] Aric Headache 1 dose PO DIRECTED PRN 08/19/22 [History] Clindamycin Phosphate [Clindagel 1%] 1 applic TOPICAL DAILY PRN 08/19/22 [History] Linaclotide [Linzess] 145 mcg PO DAILY PRN 08/19/22 [History] Prebiotic 1 dose PO DAILY 08/19/22 [History] Propranolol LA [Inderal LA] 80 mg PO HS 08/19/22 [History] polyethylene glycoL 3350 [Miralax] 17 gm PO DAILY PRN 08/19/22 [History] Acetaminophen Tab [Tylenol Tab] 650 mg PO Q4H PRN #30 tablet 05/21/23 [Rx] oxyCODONE HCL [OxyIR] 5 mg PO Q6H PRN 3 Days #12 tab 05/21/23 [Rx] Follow up Appointment(s)/Referral(s): Navid Coley MD [STAFF PHYSICIAN] - 1 Week Activity/Diet/Wound Care/Special Instructions: No driving while taking [place] No lifting over 10 pounds Shower daily. No soaking or tub baths for 2 weeks Very light activity until you are reevaluated at your follow up appointment with your surgeon Stay on a Full liquid diet for 2 weeks Discharge Disposition: HOME SELF-CARE
--- NOTE | 2023-05-21 13:00 | P.PN ---
Subjective Progress Note Date: 05/21/23 * 62-year-old patient with past medical history significant for metastatic breast cancer , history of COPD, hypertension, aortic aneurysm, dyslipidemia, hypothyroid, obstructive sleep apnea, dysphagia, gastroesophageal reflux disease, history of hiatal hernia * Patient is seen postoperatively after hiatal hernia repair, internal medicine team was consulted for medical management * Postprocedure blood work requested including CBC and basic metabolic panel, patient past medical records and home medications reviewed * Postprocedure vitals reviewed, blood pressure noted to be 10 5 x 68 with map of 80, patient on 2 L of oxygen through nasal cannula * Patient is status post laparoscopic repair of vital hernia postoperative day one * 05/21/2023: Patient seen and evaluated bedside, patient is alert and oriented 3, seen by surgery, weaned down to room air, blood work reviewed, discharge disposition per primary/general surgery team REVIEW OF SYSTEMS: Abdominal discomfort, nausea resolved CONSTITUTIONAL: No fever, no malaise, no fatigue. HEENT: No recent visual problems or hearing problems. Denied any sore throat. CARDIOVASCULAR: No chest pain, orthopnea, PND, no palpitations, no syncope. PULMONARY: No shortness of breath, no cough, no hemoptysis. GASTROINTESTINAL: Abdominal discomfort, nausea resolved NEUROLOGICAL: No headaches, no weakness, no numbness. HEMATOLOGICAL: Denies any bleeding or petechiae. GENITOURINARY: Denies any burning micturition, frequency, or urgency. MUSCULOSKELETAL/RHEUMATOLOGICAL: Denies any joint pain, swelling, or any muscle pain. ENDOCRINE: Denies any polyuria or polydipsia. PHYSICAL EXAMINATION: GENERAL: The patient is alert and oriented x3, , obese HEENT: Pupils are round and equally reacting to light. EOMI. CARDIOVASCULAR: S1 and S2 present. No murmurs, rubs, or gallops. PULMONARY: Chest is clear to auscultation, no wheezing or crackles. ABDOMEN: Soft, nontender, surgical incision intact, bowel sounds present MUSCULOSKELETAL: No joint swelling or deformity. EXTREMITIES: No cyanosis, clubbing, or pedal edema. NEUROLOGICAL: Gross neurological examination did not reveal any focal deficits. SKIN: No rashes. Objective - Vital Signs Vital signs: Vital Signs Temp 98 F 05/21/23 07:34 Pulse 95 05/21/23 07:34 Resp 16 05/21/23 07:34 BP 118/75 05/21/23 07:34 Pulse Ox 90 L 05/21/23 09:12 FiO2 Intake & Output 05/20/23 05/21/23 05/21/23 18:59 06:59 18:59 Intake Total 120 Balance 120 Intake: Oral 120 Other: Voiding Method Toilet # Voids 2 - Labs CBC & Chem 7: 05/21/23 07:04 05/21/23 07:04 Labs: Abnormal Lab Results - Last 24 Hours (Table) 05/20/23 05/21/23 05/21/23 Range/Units 16:12 07:04 07:04 RBC 3.74 L (4.10-5.20) X 10*6/uL Hgb 11.5 L (12.0-15.0) g/dL MCV 100.3 H (80.0-97.0) FL MCHC 30.7 L (32.0-37.0) g/dL BUN <3.5 L (9.0-27.0) mg/dL BUN/Creatinine Ratio <3.89 L (12.00-20.00) Ratio Glucose 146 H 169 H (74-99) mg/dL Calcium 8.2 L 7.9 L (8.4-10.2) mg/dL Assessment and Plan Assessment: Assessment and plan History of hiatal hernia status post laparoscopic repair postoperative day 2 Acute anemia Transient hyperkalemia History of COPD History of breast cancer Iron deficiency anemia history History of restless leg syndrome Hypothyroid * Postoperative day 2 , follow-up on CBC basic metabolic panel, postoperative management per general surgery team * In regards to transient hyperkalemia, patient given insulin and dextrose in follow-up potassium levels to be checked, will hold off on lolelma postoperatively, follow-up potassium within normal limits * In regards to chronic medical issues home medications reviewed and reconciled * Continue patient on fluid resuscitation for surgery, blood pressure improved * In regards to restless leg syndrome home medications continued * In regards to hypothyroid continue patient on Synthyroid * CODE STATUS is full code
== END 2023-05-21 14:45 | disposition home or self-care (01) ==
LOC: OR 10:56 → 5NMEDONC 14:00 → OR 05-21 14:45
PROVIDERS: ATTEND Surgery
DX: K44.9 Diaphragmatic hernia without obstruction or gangrene (principal); D50.9 Iron deficiency anemia, unspecified; E03.9 Hypothyroidism, unspecified; E78.5 Hyperlipidemia, unspecified; E87.5 Hyperkalemia; G25.81 Restless legs syndrome; G47.33 Obstructive sleep apnea (adult) (pediatric); G89.29 Other chronic pain; I10 Essential (primary) hypertension; J44.9 Chronic obstructive pulmonary disease, unspecified; K21.9 Gastro-esophageal reflux disease without esophagitis; F17.200 Nicotine dependence, unspecified, uncomplicated; Z79.890 Hormone replacement therapy; Z85.3 Personal history of malignant neoplasm of breast; Z86.16 Personal history of COVID-19; Z91.040 Latex allergy status; Z87.19 Personal history of other diseases of the digestive system; Z79.899 Other long term (current) drug therapy
CPT/HCPCS: 97161; 80048 ×2; 84132; 85027 ×2; 43282; C1781; J1100; J0690 ×2; J2405 ×3; J1650 ×2; S0170; J1170 ×4; C9113 ×2; J1644; J0613

== ENCOUNTER 2023-10-08 11:55 | Emergency (ER) | payer MEDICARE, OTHER ==
--- NOTE | 2023-10-08 12:37 | ED ---
General Adult HPI - General Chief complaint: Headache Stated complaint: L sided pain/weakness Time Seen by Provider: 10/08/23 12:23 Source: patient, RN notes reviewed, old records reviewed Mode of arrival: ambulatory Limitations: no limitations - History of Present Illness Initial comments: 62-year-old female presenting with 2-week headache history. History of migraine headaches, takes Imitrex. Patient states she took Imitrex this morning without relief. She has an appointment with her neurologist but it is not for approximately 3 weeks. She has associated nausea. She has had poor appetite and vomiting. No fevers. No focal weakness or numbness. - Related Data Home Medications Medication Instructions Recorded Confirmed traZODone HCL [Desyrel] 100 mg PO HS 11/21/14 05/15/23 Montelukast [Singulair] 10 mg PO HS 12/27/15 05/15/23 Atorvastatin [Lipitor] 10 mg PO HS 11/24/17 05/15/23 Baclofen [Lioresal] 10 mg PO BID 05/25/18 05/15/23 Omeprazole [PriLOSEC] 20 mg PO BID 06/22/18 05/15/23 SUMAtriptan succinate [Imitrex] 100 mg PO BID PRN 06/22/18 05/15/23 Meclizine [Antivert] 25 mg PO BID 02/05/19 05/15/23 Vitamin C/Biotin [Hair, Skin and 1 tab PO BID 03/04/19 05/15/23 Nails Chew] Anastrozole [Arimidex] 1 mg PO DAILY 10/22/19 05/15/23 Cyanocobalamin [Vitamin B-12] 1,500 mcg PO DAILY 10/22/19 05/15/23 Ferrous Sulfate [Iron (65 MG 325 mg PO DAILY 10/22/19 05/15/23 Elemental)] L.acidoph,Paracasei, B.lactis 1 cap PO DAILY 10/22/19 05/15/23 [Probiotic] Terazosin [Hytrin] 1 mg PO HS 10/22/19 05/15/23 diphenhydrAMINE [Benadryl] 25 mg PO DAILY 10/22/19 05/15/23 Multivit with Calcium,Iron,Min 1 tab PO BID 11/18/19 05/15/23 [Women's Multivitamin] Magnesium 500 mg PO HS 06/30/20 05/15/23 Aspirin EC [Ecotrin Low Dose] 81 mg PO DAILY 10/09/21 05/15/23 Calcium Plus 1,000 mg PO DAILY 10/09/21 05/15/23 Calcium Plus 500 mg PO HS 10/09/21 05/15/23 Cholecalciferol [Vitamin D3 (125 125 mcg PO DAILY 10/09/21 05/15/23 Mcg = 5000 Iu)] Cyclobenzaprine [Flexeril] 10 mg PO BID 10/09/21 05/15/23 Levothyroxine Sodium [Synthroid] 112 mcg PO QAM 10/09/21 05/15/23 Potassium Gluconate [Potassium 99 mg PO HS 10/09/21 05/15/23 Gluconate ER] Prochlorperazine [Compazine] 10 mg PO BID PRN 10/09/21 05/15/23 Varenicline [Chantix Continuing 1 mg PO DAILY 10/09/21 05/15/23 Pack] Vit C/E/Zn/Coppr/Lutein/Zeaxan 1 cap PO DAILY 10/09/21 05/15/23 [Preservision Areds 2 Softgel] rOPINIRole HCL [Requip] 0.5 mg PO HS 10/09/21 05/15/23 Alendronate Sodium [Fosamax] 70 mg PO WEEKLY 08/19/22 05/15/23 Aric Headache 1 dose PO DIRECTED PRN 08/19/22 05/15/23 Clindamycin Phosphate [Clindagel 1 applic TOPICAL DAILY PRN 08/19/22 05/15/23 1%] Linaclotide [Linzess] 145 mcg PO DAILY PRN 08/19/22 05/15/23 Prebiotic 1 dose PO DAILY 08/19/22 05/15/23 Propranolol LA [Inderal LA] 80 mg PO HS 08/19/22 05/15/23 polyethylene glycoL 3350 [Miralax] 17 gm PO DAILY PRN 08/19/22 05/15/23 Previous Rx's Medication Instructions Recorded Acetaminophen Tab [Tylenol Tab] 650 mg PO Q4H PRN #30 tablet 05/21/23 oxyCODONE HCL [OxyIR] 5 mg PO Q6H PRN 3 Days #12 tab 05/21/23 Allergies Allergy/AdvReac Type Severity Reaction Status Date / Time latex Allergy Rash/Hives Verified 10/08/23 12:00 nickel Allergy Rash/Hives Verified 10/08/23 12:00 paper tape Allergy Rash/Hives Uncoded 10/08/23 12:00 Review of Systems ROS Statement: Those systems with pertinent positive or pertinent negative responses have been documented in the HPI. ROS Other: All systems not noted in ROS Statement are negative. Past Medical History Past Medical History: Cancer, COPD, GERD/Reflux, Hyperlipidemia, Hypertension, Sleep Apnea/CPAP/BIPAP, Thyroid Disorder Additional Past Medical History / Comment(s): Hx Covid 06-06-20. Migraines. Sleep apnea resolved with wt loss. Severe vertigo, uses cane as needed. Low heart rate. Hx colon polyp. Chronic back pain. Aortic aneurysm. Hx left breast cancer with surgery 06/2019, no radiation, had oral chemo. Internal hemorrhoids. Spinal stimulator-posterior lower left hip area. History of Any Multi-Drug Resistant Organisms: None Reported Past Surgical History: Bariatric Surgery, Bladder Surgery, Breast Surgery, Orthopedic Surgery Additional Past Surgical History / Comment(s): Loop recorder inserted and removed, eye surgery, left thumb surgery, right hand ring finger surgery, EGD, colonoscopy, Double Mastectomy (06/2019), Panniculectomy, sleeve gastrectomy (04-20-18), nerve stimulator placed. Past Anesthesia/Blood Transfusion Reactions: No Reported Reaction, Motion Sickness Additional Past Anesthesia/Blood Transfusion Reaction / Comment(s): . Type of Cardiac Device: Loop Device Placement Date:: 2019 Past Psychological History: Depression, PTSD Smoking Status: Current some day smoker Past Alcohol Use History: Occasional Past Drug Use History: Marijuana - Past Family History Mother Family Medical History: Cancer Additional Family Medical History / Comment(s): Mother at age 54 due to lung cancer. Patient has 2 aunts that had breast cancer. Patient does not have any children. Father Family Medical History: Coronary Artery Disease (CAD), Diabetes Mellitus Additional Family Medical History / Comment(s): Father is alive with history of CAD, DM and is on home O2. She does not know any further details. Sister(s) Family Medical History: No Reported History Additional Family Medical History / Comment(s): Patient has 2 sisters and one half-sister with no major medical problems. Brother(s) Family Medical History: Coronary Artery Disease (CAD) Additional Family Medical History / Comment(s): Patient has one brother with history of coronary artery disease status post CABG in heart failure. General Exam Limitations: no limitations General appearance: alert, in no apparent distress Head exam: Present: atraumatic, normocephalic Eye exam: Present: normal appearance, PERRL ENT exam: Present: normal exam Neck exam: Present: normal inspection. Absent: tenderness, meningismus Respiratory exam: Present: normal lung sounds bilaterally. Absent: respiratory distress Cardiovascular Exam: Present: regular rate. Absent: normal rhythm GI/Abdominal exam: Present: soft. Absent: distended, tenderness, guarding Extremities exam: Present: normal inspection, normal capillary refill Neurological exam: Present: alert, oriented X3, CN II-XII intact. Absent: motor sensory deficit Psychiatric exam: Present: normal affect, normal mood Skin exam: Present: warm, dry, intact. Absent: cyanosis, diaphoretic Course Vital Signs 10/08/23 10/08/23 10/08/23 11:58 12:58 13:58 Temperature 98.2 F Pulse Rate 88 80 77 Respiratory 20 16 20 Rate Blood Pressure 140/97 119/92 123/104 O2 Sat by Pulse 99 97 96 Oximetry Medical Decision Making - Medical Decision Making Was pt. sent in by a medical professional or institution ([facility], [facility] [employer] [employer], urgent care, hospital, or snf...) When possible be specific @ -No Did you speak to anyone other than the patient for history (EMS, parent, family, police, friend...)? What history was obtained from this source @ -No Did you review nursing and triage notes (agree or disagree)? Why? @ -I reviewed and agree with nursing and triage notes Were old charts reviewed (outside hosp., previous admission, EMS record, old EKG, old radiological studies, urgent care reports/EKG's, snf records)? Report findings @ -No old charts were reviewed Differential Headache: Migraine, tension, cluster, carbon monoxide, central venous thrombosis, pension karma temporal arteritis, acute closure glaucoma, intercranial hemorrhage, mastoiditis, sinusitis, head injury, this is not meant to be an all-inclusive list. EKG interpreted by me (3pts min.). @ -As above X-rays interpreted by me (1pt min.). @ -None done CT interpreted by me (1pt min.). @CT brain negative for intracranial hemorrhage or mass effect, no acute findings. U/S interpreted by me (1pt. min.). @ -None done What testing was considered but not performed or refused? (CT, X-rays, U/S, labs)? Why? @ -None What meds were considered but not given or refused? Why? @ -None Did you discuss the management of the patient with other professionals (professionals i.e. , PA, [employer], lab, RT, psych nurse, social security benefits interviewer, gift shop assistant, teacher, [employer] operations staff officer, top case assembler)? Give summary @ -No Was smoking cessation discussed for >3mins.? @ -No Was critical care preformed (if so, how long)? @ -No Were there social determinants of health that impacted care today? How? (Homelessness, low income, unemployed, alcoholism, drug addiction, transportation, low edu. Level, literacy, decrease access to med. care, skilled nursing, re hab)? @ -No Was there de-escalation of care discussed even if they declined (Discuss DNR or withdrawal of care, Hospice)? DNR status @ -No What co-morbidities impacted this encounter? (DM, HTN, Smoking, COPD, CAD, Cancer, CVA, ARF, Chemo, Hep., AIDS, mental health diagnosis, sleep apnea, morbid obesity)? @ -History of migraine headache Was patient admitted / discharged? Hospital course, mention meds given and route, prescriptions, significant lab abnormalities, going to OR and other pertinent info. @ -62-year-old female presenting with headache, typical of her migraine although duration is significantly longer. She was sent in by primary for evaluation including CT. CT was ordered which was negative for acute process. Laboratory testing unremarkable. After treatment the patient feels significantly better headache nearly completely resolved. She is eager for discharge. Return parameters discussed. Undiagnosed new problem with uncertain prognosis? @ -No Drug Therapy requiring intensive monitoring for toxicity (Heparin, Nitro, Insulin, Cardizem)? @ -No Were any procedures done? @ -No Diagnosis/symptom? @ -Headache Acute, or Chronic, or Acute on Chronic? @Acute Uncomplicated (without systemic symptoms) or Complicated (systemic symptoms)? @ -Default Side effects of treatment? @ -No Exacerbation, Progression, or Severe Exacerbation? @ -No Poses a threat to life or bodily function? How? (Chest pain, USA, PR, pneumonia, PE, COPD, DKA, ARF, appy, cholecystitis, CVA, Diverticulitis, Homicidal, Suicidal, threat to staff... and all critical care pts) @ -Low risk at this time - Lab Data Result diagrams: 10/08/23 12:50 10/08/23 12:50 Lab Results 10/08/23 10/08/23 Range/Units 12:50 12:50 WBC 6.7 (3.8-10.6) k/uL RBC 4.46 (3.80-5.40) m/uL Hgb 13.8 (11.4-16.0) gm/dL Hct 44.0 (34.0-46.0) % MCV 98.7 (80.0-100.0) fL MCH 31.0 (25.0-35.0) pg MCHC 31.4 (31.0-37.0) g/dL RDW 14.2 (11.5-15.5) % Plt Count 227 (150-450) k/uL MPV 8.3 Neutrophils % 66 % Lymphocytes % 25 % Monocytes % 4 % Eosinophils % 2 % Basophils % 1 % Neutrophils # 4.4 (1.3-7.7) k/uL Lymphocytes # 1.7 (1.0-4.8) k/uL Monocytes # 0.3 (0-1.0) k/uL Eosinophils # 0.2 (0-0.7) k/uL Basophils # 0.1 (0-0.2) k/uL Sodium 139 (137-145) mmol/L Potassium 4.3 (3.5-5.1) mmol/L Chloride 108 H (98-107) mmol/L Carbon Dioxide 24 (22-30) mmol/L Anion Gap 7 mmol/L BUN 14 (7-17) mg/dL Creatinine 0.86 (0.52-1.04) mg/dL Est GFR (CKD-EPI)AfAm 84 (>60 ml/min/1.73 sqM) Est GFR (CKD-EPI)NonAf 73 (>60 ml/min/1.73 sqM) Glucose 94 (74-99) mg/dL Calcium 8.8 (8.4-10.2) mg/dL Total Bilirubin 0.6 (0.2-1.3) mg/dL AST 19 (14-36) U/L ALT 19 (4-34) U/L Alkaline Phosphatase 92 (38-126) U/L Total Protein 6.6 (6.3-8.2) g/dL Albumin 3.9 (3.5-5.0) g/dL Disposition Clinical Impression: Headache Disposition: HOME SELF-CARE Condition: Fair Instructions (If sedation given, give patient instructions): Acute Headache (ED) Is patient prescribed a controlled substance at d/c from ED?: No Referrals: Hugo Preston MD [Primary Care Provider] - 1-2 days Jane Perez MD [Medical Doctor] - 1-2 days Time of Disposition: 13:49
[2023-10-08] MEDS: ACETAMINOPHEN IV (For NPO) 1,000 MG in EMPTY BAG 1 BAG IVPB ONE (12:50)
[2023-10-08] MEDS: SODIUM CHLORIDE 0.9% 1,000 ML IV STA (12:51)
[2023-10-08] MEDS: diphenhydrAMINE 50 MG/ML 1 ML VIAL IVP STA (12:53)
[2023-10-08] MEDS: METOCLOPRAMIDE 5 MG/ML 2 ML VIAL IVP STA (12:54)
[2023-10-08] MEDS: DEXAMETHASONE SOD PHOSPHATE 10 MG/ML 1 ML VIAL IVP STA (12:54)
[2023-10-08 12:56] LABS: Basophils # (A) 0.1 k/uL (0-0.2); Basophils % (A) 1 %; Eosinophils # (A) 0.2 k/uL (0-0.7); Eosinophils % (A) 2 %; HGB 13.8 gm/dL (11.4-16.0); Lymphocytes # (A) 1.7 k/uL (1.0-4.8); Lymphocytes % (A) 25 %; MCHC 31.4 g/dL (31.0-37.0); MCV 98.7 fL (80.0-100.0); Mean Platelet Volume 8.3; Monocytes # (A) 0.3 k/uL (0-1.0); Monocytes % (A) 4 %; Neutrophils # (A) 4.4 k/uL (1.3-7.7); Neutrophils % (A) 66 %; Platelet Count 227 k/uL (150-450); RBC 4.46 m/uL (3.80-5.40); RDW 14.2 % (11.5-15.5); WBC 6.7 k/uL (3.8-10.6)
[2023-10-08 13:04] LABS: ALT 19 U/L (4-34); AST 19 U/L (14-36); African American GFR (CKD) 84 (>60 ml/min/1.73 sqM); Albumin 3.9 g/dL (3.5-5.0); Alkaline Phosphatase 92 U/L (38-126); Anion Gap 7 mmol/L; Blood Urea Nitrogen 14 mg/dL (7-17); Calcium 8.8 mg/dL (8.4-10.2); Carbon Dioxide 24 mmol/L (22-30); Chloride 108 mmol/L (98-107); Glucose 94 mg/dL (74-99); Non-African American GFR(CKD) 73 (>60 ml/min/1.73 sqM); Potassium 4.3 mmol/L (3.5-5.1); Sodium 139 mmol/L (137-145); Total Bilirubin 0.6 mg/dL (0.2-1.3); Total Protein 6.6 g/dL (6.3-8.2)
--- NOTE | 2023-10-08 14:52 | CT ---
EXAMINATION TYPE: CT brain wo con CT DLP: 1125.4 mGycm, Automated exposure control for dose reduction was used. DATE OF EXAM: 10/08/2023 1:28 PM COMPARISON: 02/08/2015. CLINICAL INDICATION:Female, 62 years old with history of Headache, Migraine x 3 days TECHNIQUE: Brain: Axial CT images of the brain were obtained with coronal and sagittal reformats created and rev iewed. Contrast used: None. Oral contrast used: None. FINDINGS: Brain: Extra-axial spaces: No abnormal extra-axial fluid collections. Ventricular system: Within normal limits Cerebral parenchyma: No acute intraparenchymal hemorrhage or mass effect. The alfaro-white junction is well differentiated. Cerebellum: Unremarkable. Mass effect: No evidence of midline shift. Intracranial vasculature: unremarkable Soft tissues: Normal. Calvarium/osseous structures: No depressed skull fracture. Paranasal sinuses and mastoid air cells: Mild scattered paranasal sinus disease. Visualized orbits: Orbital contents are intact. IMPRESSION: No acute intracranial process.
[2023-10-08] MEDS: KETOROLAC 15 MG/ML 1 ML VIAL IVP STA (15:11)
[2023-10-08 15:29] VITALS: BP 151/91; PULSE 57; RESP 18; TEMP 98.1
== END 2023-10-08 15:21 | disposition home or self-care (01) ==
LOC: EC 11:55
DX: R51.9 Headache, unspecified (principal); F17.200 Nicotine dependence, unspecified, uncomplicated; F12.90 Cannabis use, unspecified, uncomplicated; Z91.09 Other allergy status, other than to drugs and biological substances; Z91.040 Latex allergy status; Z88.8 Allergy status to other drugs, medicaments and biological substances
CPT/HCPCS: 36415; 80053; 85025; 70450; 99284; 96365; 96375 ×4; J1200; J1100; J2765; J0131; J1885

== ENCOUNTER 2023-12-03 11:23 | Observation (INO) | payer MEDICARE, OTHER ==
[2023-12-03 12:29] LABS: Basophils # (A) 0.1 k/uL (0-0.2); Basophils % (A) 1 %; Eosinophils # (A) 0.1 k/uL (0-0.7); Eosinophils % (A) 2 %; HCT 48.7 % (34.0-46.0); HGB 15.1 gm/dL (11.4-16.0); Lymphocytes % (A) 29 %; MCH 30.6 pg (25.0-35.0); MCV 98.6 fL (80.0-100.0); Mean Platelet Volume 8.7; Monocytes # (A) 0.3 k/uL (0-1.0); Monocytes % (A) 5 %; Neutrophils # (A) 4.2 k/uL (1.3-7.7); Neutrophils % (A) 62 %; Platelet Count 268 k/uL (150-450); RBC 4.93 m/uL (3.80-5.40); RDW 14.2 % (11.5-15.5); WBC 6.9 k/uL (3.8-10.6)
[2023-12-03] MEDS: ASPIRIN 81 MG PO STA (12:34)
--- NOTE | 2023-12-03 12:36 | ED ---
Chest Pain HPI - General Chief Complaint: Chest Pain Stated Complaint: Chest Pains Time Seen by Provider: 12/03/23 11:49 Source: patient, RN notes reviewed Mode of arrival: ambulatory Limitations: no limitations - History of Present Illness Initial Comments: This is a 63-year-old female who presents to the emergency department for chest pain. States that this morning she had chest pressure with numbness in her left arm and felt like she could not catch her breath. Denies any history of heart attacks. She has had stress tests for previous bouts of chest pain, and states that they have been normal. Additionally, states that this morning she developed a migraine. Reports a history of migraines, however she was not able to get this to resolve with Imitrex like she usually is. She has minor associated nausea. Additionally this morning she also had bright red blood mixed in with her bowel movement. Not taking any blood thinners. MD Complaint: chest pain - Related Data Home Medications Medication Instructions Recorded Confirmed traZODone HCL [Desyrel] 100 mg PO HS 11/21/14 12/03/23 Atorvastatin [Lipitor] 10 mg PO HS 11/24/17 12/03/23 Baclofen [Lioresal] 10 mg PO BID PRN 05/25/18 12/03/23 SUMAtriptan succinate [Imitrex] 100 mg PO BID PRN 06/22/18 12/03/23 Meclizine [Antivert] 25 mg PO BID 02/05/19 12/03/23 Anastrozole [Arimidex] 1 mg PO DAILY 10/22/19 12/03/23 Terazosin [Hytrin] 1 mg PO HS 10/22/19 12/03/23 Levothyroxine Sodium [Synthroid] 112 mcg PO QAM 10/09/21 12/03/23 Varenicline [Chantix Continuing 1 mg PO DAILY 10/09/21 12/03/23 Pack] Alendronate Sodium [Fosamax] 70 mg PO WE 08/19/22 12/03/23 Propranolol LA [Inderal LA] 80 mg PO HS 08/19/22 12/03/23 Butalb/Acetaminophen/Caffeine 1 tab PO BID PRN 12/03/23 12/03/23 [Fioricet 50-325-40] Montelukast [Singulair] 10 mg PO HS 12/03/23 12/03/23 rOPINIRole HCL [Requip] 1 mg PO HS 12/03/23 12/03/23 Allergies Allergy/AdvReac Type Severity Reaction Status Date / Time latex Allergy Rash/Hives Verified 12/03/23 13:08 nickel Allergy Rash/Hives Verified 12/03/23 13:08 paper tape Allergy Rash/Hives Uncoded 12/03/23 13:08 Review of Systems ROS Statement: Those systems with pertinent positive or pertinent negative responses have been documented in the HPI. ROS Other: All systems not noted in ROS Statement are negative. Past Medical History Past Medical History: Cancer, COPD, GERD/Reflux, Hyperlipidemia, Hypertension, Sleep Apnea/CPAP/BIPAP, Thyroid Disorder Additional Past Medical History / Comment(s): Hx Covid 06-06-20. Migraines. Sleep apnea resolved with wt loss. Severe vertigo, uses cane as needed. Low heart rate. Hx colon polyp. Chronic back pain. Aortic aneurysm. Hx left breast cancer with surgery 06/2019, no radiation, had oral chemo. Internal hemorrhoids. Spinal stimulator-posterior lower left hip area. History of Any Multi-Drug Resistant Organisms: None Reported Past Surgical History: Bariatric Surgery, Bladder Surgery, Breast Surgery, Orthopedic Surgery Additional Past Surgical History / Comment(s): Loop recorder inserted and removed, eye surgery, left thumb surgery, right hand ring finger surgery, EGD, colonoscopy, Double Mastectomy (06/2019), Panniculectomy, sleeve gastrectomy (04-20-18), nerve stimulator placed. Past Anesthesia/Blood Transfusion Reactions: No Reported Reaction, Motion Sickness Additional Past Anesthesia/Blood Transfusion Reaction / Comment(s): . Type of Cardiac Device: Loop Device Placement Date:: 2019 Past Psychological History: Depression, PTSD Smoking Status: Current some day smoker Past Alcohol Use History: Occasional Past Drug Use History: Marijuana - Past Family History Mother Family Medical History: Cancer Additional Family Medical History / Comment(s): Mother at age 54 due to lung cancer. Patient has 2 aunts that had breast cancer. Patient does not have any children. Father Family Medical History: Coronary Artery Disease (CAD), Diabetes Mellitus Additional Family Medical History / Comment(s): Father is alive with history of CAD, DM and is on home O2. She does not know any further details. Sister(s) Family Medical History: No Reported History Additional Family Medical History / Comment(s): Patient has 2 sisters and one half-sister with no major medical problems. Brother(s) Family Medical History: Coronary Artery Disease (CAD) Additional Family Medical History / Comment(s): Patient has one brother with history of coronary artery disease status post CABG in heart failure. General Exam Limitations: no limitations General appearance: alert, in no apparent distress Head exam: Present: atraumatic, normocephalic, normal inspection Eye exam: Present: normal appearance, PERRL, EOMI. Absent: scleral icterus, conjunctival injection, periorbital swelling Respiratory exam: Present: normal lung sounds bilaterally. Absent: respiratory distress, wheezes, rales, rhonchi, stridor Cardiovascular Exam: Present: regular rate, normal rhythm, normal heart sounds. Absent: systolic murmur, diastolic murmur, rubs, gallop, clicks GI/Abdominal exam: Present: soft, normal bowel sounds. Absent: distended, tenderness, guarding, rebound, rigid Neurological exam: Present: alert, oriented X3, CN II-XII intact Psychiatric exam: Present: normal affect, normal mood Skin exam: Present: warm, dry, intact, normal color. Absent: rash Course Vital Signs 12/03/23 12/03/23 12/03/23 11:25 12:15 15:09 Temperature 97.6 F 97.9 F 97.1 F L Pulse Rate 75 61 79 Respiratory 18 16 16 Rate Blood Pressure 135/88 147/91 O2 Sat by Pulse 95 98 95 Oximetry 12/03/23 16:41 Temperature 97.3 F L Pulse Rate 87 Respiratory 16 Rate Blood Pressure 130/83 O2 Sat by Pulse 95 Oximetry Chest Pain MDM - MDM This is a 63 year old female who presents to the emergency department for chest pain. Was pt. sent in by a medical professional or institution? @ -No Did you speak to anyone other than the patient for history? @ -No Did you review nursing and triage notes? @ -Yes, and I agree, it is accurate with regards to the patient's symptoms. Were old charts reviewed? @ -No Differential Diagnosis? @ -Differential Chest Pain: Stable Angina, Unstable Angina, STEMI, NSTEMI Aortic Dissection, Pneumothorax, Musculoskeletal, Esophageal Spasm GERD, Cholecystitis, Pancreatitis, Zoster, this is not meant to be an all-inclusive list. EKG interpreted by me (3pts min.)? @ -EKG interpreted by me demonstrating the following: Sinus rhythm. Ventricular rate 61 bpm, CT interval 169 ms, QRS duration 86 ms, QTc 425 ms. X-rays interpreted by me (1pt min.)? @ -Chest x-ray obtained, my interpretation identifies no localized consolidations or infiltrates. CT interpreted by me (1pt min.)? @ -Not obtained U/S interpreted by me (1pt. min.)? @ -Not obtained What testing was considered but not performed? (CT, X-rays, U/S, labs)? Why? @ -None What meds were considered but not given? Why? @ -Nitroglycerin for the chest pain, however patient declined due to the headache. Did you discuss the management of the patient with other professionals? @ -Yes, Dr. Bernardo, who accepts the patient for admission Did you reconcile home meds? @ -Yes Was smoking cessation discussed for >3mins.? @ -No Was critical care preformed (if so, how long)? @ -No Were there social determinants of health that impacted care today? How? (Homelessness, low income, unemployed, alcoholism, drug addiction, transportation, low edu. Level, literacy, decrease access to med. care, detention, rehab)? @ -No Was there de-escalation of care discussed even if they declined? (Discuss DNR or withdrawal of care, Hospice)? @ -No What co-morbidities impacted this encounter? (DM, HTN, Smoking, COPD, CAD, Cancer, CVA, Hep., AIDS, mental health diagnosis, sleep apnea, morbid obesity)? @ -Migraines, HTN, HLD, COPD Was patient admitted / discharged? @ -Admitted. Lab work unremarkable including a negative troponin. Urinalysis not suggestive of infection. Chest x-ray reveals no acute process. Patient initially treated with a migraine cocktail consisting of IV fluids, Toradol, Decadron, Reglan, and Benadryl. She did have significant relief in the headache afterwards. We discussed nitroglycerin for the chest pain, however patient declined due to the migraine and not wanting to make it worse. Given the patient's age with risk factors and persistent chest pain, she was admitted to medicine for chest pain rule out. Consult placed for cardiology and serial troponins ordered. Undiagnosed new problem with uncertain prognosis? @ -None Drug Therapy requiring intensive monitoring for toxicity (Heparin, Nitro, Insulin, Cardizem)? @ -None Were any procedures done? @ -None Diagnosis/symptom? @ -Chest pain Acute, or Chronic, or Acute on Chronic? @ -Acute Uncomplicated (without systemic symptoms) or Complicated (systemic symptoms)? @ -Uncomplicated Side effects of treatment? @ -None Exacerbation, Progression, or Severe Exacerbation] @ -Not applicable Poses a threat to life or bodily function? @ -No This case was discussed in detail with the attending ED physician, Dr. Marina. Presentation, findings, and treatment plan discussed in detail as well. Disposition Clinical Impression: Chest pain Disposition: ADMITTED IP TO THIS HOSP
[2023-12-03] MEDS: METOCLOPRAMIDE 5 MG/ML 2 ML VIAL IVP STA (12:37)
[2023-12-03 12:39] LABS: Partial Thromboplastin Time 24.3 sec (22.0-30.0); Prothrombin Time 10.7 sec (10.0-12.5)
[2023-12-03 12:42] LABS: ALT 19 U/L (4-34); AST 22 U/L (14-36); African American GFR (CKD) 76 (>60 ml/min/1.73 sqM); Albumin 4.3 g/dL (3.5-5.0); Alkaline Phosphatase 102 U/L (38-126); Anion Gap 7 mmol/L; Blood Urea Nitrogen 9 mg/dL (7-17); Calcium 9.5 mg/dL (8.4-10.2); Carbon Dioxide 27 mmol/L (22-30); Chloride 106 mmol/L (98-107); Glucose 97 mg/dL (74-99); Lipase 98 U/L (23-300); Magnesium 1.9 mg/dL (1.6-2.3); Non-African American GFR(CKD) 66 (>60 ml/min/1.73 sqM); Potassium 4.3 mmol/L (3.5-5.1); Sodium 140 mmol/L (137-145); Total Bilirubin 0.9 mg/dL (0.2-1.3); Total Protein 6.9 g/dL (6.3-8.2)
[2023-12-03] MEDS: KETOROLAC 15 MG/ML 1 ML VIAL IVP STA (12:44)
[2023-12-03] MEDS: DEXAMETHASONE SOD PHOSPHATE 10 MG/ML 1 ML VIAL IVP STA (12:49)
[2023-12-03] MEDS: diphenhydrAMINE 50 MG/ML 1 ML VIAL IVP STA (12:58)
[2023-12-03] MEDS: SODIUM CHLORIDE 0.9% 1,000 ML IV STA (13:06)
--- NOTE | 2023-12-03 13:25 | XR ---
EXAMINATION TYPE: XR chest 2V DATE OF EXAM: 12/03/2023 1:19 PM CLINICAL INDICATION:Female, 63 years old with history of Chest Pain COMPARISON: Chest radiographs from 04/15/2023 TECHNIQUE: XR chest 2V Frontal and lateral views of the chest. FINDINGS: Lungs/Pleura: There is no evidence of pleural effusion, focal consolidation, or pneumothorax. Pulmonary vascularity: Unremarkable. Heart/mediastinum: Cardiomediastinal silhouette is unremarkable. Musculoskeletal: No acute osseous pathology. There are stimulator lead projecting over the spine. IMPRESSION: No acute cardiopulmonary disease/process.
[2023-12-03] MEDS ORDERED: IBUPROFEN 400 MG TAB PO PRN (14:09)
[2023-12-03] MEDS ORDERED: HYDROcodone/APAP 5-325MG 1 EACH TAB PO PRN (14:09)
[2023-12-03] MEDS ORDERED: ONDANSETRON 4 MG/2 ML VIAL IVP PRN (14:09)
[2023-12-03] MEDS ORDERED: KETOROLAC 15 MG/ML 1 ML VIAL IVP PRN (14:09)
[2023-12-03] MEDS ORDERED: NALOXONE 0.4 MG/ML 1 ML VIAL IV PRN (14:09)
[2023-12-03] MEDS ORDERED: MORPHINE SULFATE 4 MG/ML SYRINGE IV PRN (14:09)
[2023-12-03] MEDS ORDERED: ACETAMINOPHEN TAB 325 MG TAB PO PRN (14:09)
[2023-12-03] MEDS ORDERED: SUMAtriptan succinate 50 MG TAB PO PRN (14:12)
[2023-12-03 16:12] LABS: Appearance,Urine Clear (Clear); Bilirubin,Urine Negative (Negative); Blood,Urine Negative (Negative); Color,Urine Yellow; Glucose,Urine (UA) Negative (Negative); Ketones,Urine Negative (Negative); Leukocyte Esterase,Urine Moderate (Negative); Nitrite,Urine Negative (Negative); Protein,Urine Trace (Negative); RBC,Urine 3 /hpf (0-5); Specific Gravity,Urine 1.019 (1.001-1.035); WBC,Urine 3 /hpf (0-5)
[2023-12-03 16:13] LABS: Bacteria,Urine Rare /hpf; Mucus,Urine Occasional /hpf; Squamous Epithelial Cell,Urine 3 /hpf (0-4); Transitional Epi Cells,Urine <1 /hpf (0-1)
[2023-12-03] MEDS: PROPRANOLOL LA 80 MG CAP.SA.24H PO SCH (20:52)
[2023-12-03] MEDS: traZODone HCL 100 MG TAB PO SCH (20:52)
[2023-12-03] MEDS: ATORVASTATIN 10 MG TAB PO SCH (20:52)
[2023-12-03] MEDS: DOXAZOSIN 1 MG TAB PO SCH (20:52)
[2023-12-03] MEDS: MECLIZINE 25 MG TAB PO SCH (20:53)
[2023-12-03] MEDS: MONTELUKAST 10 MG TAB PO SCH (20:53)
[2023-12-04 02:34] VITALS: RESP 16
[2023-12-04] MEDS: LEVOTHYROXINE 112 MCG TAB PO SCH (06:40)
[2023-12-04] MEDS: BUTALB/APAP/CAFF 50-325-40MG TAB PO PRN (06:48)
[2023-12-04 07:24] VITALS: BP 105/71; PULSE 48; TEMP 97.5
[2023-12-04] MEDS: PANTOPRAZOLE 40 MG/10 ML VIAL IV SCH (08:33)
[2023-12-04] MEDS: ANASTROZOLE 1 MG TAB PO SCH (08:33)
[2023-12-04] MEDS: BACLOFEN 10 MG TAB PO PRN (08:34)
[2023-12-04] MEDS ORDERED: REGADENOSON 0.4 MG/5 ML SYRINGE IV PRN (08:57)
[2023-12-04] MEDS ORDERED: AMINOPHYLLINE 500 MG/20 ML VIAL IV PRN (08:57)
[2023-12-04] MEDS ORDERED: CAFFEINE CITRATE 60 MG/3 ML VIAL IV PRN (08:57)
--- NOTE | 2023-12-04 10:15 | P.CRDCN ---
History of Present Illness History of present illness: HISTORY OF PRESENT ILLNESS: This is a 63-year-old female with a past medical history significant for migraines, breast cancer with chemotherapy, depression, PTSD, and nicotine dependence. Patient follows with a milk treater and [facility]. We have been asked to see the patient in consultation for chest pain. Patient examined at the bedside. Patient states 2 nights ago she woke up from sleep with pain in her arm. She also reports having a migraine. She reports that her arm also felt numb and tingly. She states that she had an episode of bright red blood yesterday per her rectum. She reports a stabbing burning sensation this morning in her chest along with a headache. She states that she is an occasional smoker when she consumes alcohol which is approximately once a month. DIAGNOSTICS: - EKG reveals sinus mechanism with no signs of acute ischemia. - Chest xray negative for acute process. - Laboratory data: WBC 6.9. Hemoglobin 15.1. Platelet count 268. Sodium 140. Potassium 4.3. BUN 9. Creatinine 0.93. Magnesium 1.9. Troponin negative x 3 - Current home cardiac medications include atorvastatin 10 mg at night, propranolol 80 mg at night. - Most recent echocardiogram obtained in September 2021 reveals ejection fraction 55 to 60%. - Lexiscan stress test completed in October 2021 which was negative for reversible ischemia REVIEW OF SYSTEMS: At the time of my exam: CONSTITUTIONAL: Denies fever or chills. HEENT: Denies blurred vision, vision changes, or eye pain. Denies hemoptysis CARDIOVASCULAR: Denies chest pain. Denies orthopnea. Denies PND. Denies palpitat ions RESPIRATORY: Denies shortness of breath. GASTROINTESTINAL: Denies abdominal pain. Denies nausea or vomiting. HEMATOLOGIC: Denies bleeding disorders. GENITOURINARY: Denies any blood in urine. SKIN: Denies pruitis. Denies rash. PHYSICAL EXAM: VITAL SIGNS: Reviewed. GENERAL: Well-developed in no acute distress. HEENT: Head is normocephalic. Pupils are equal, round. Sclerae anicteric. Mucous membranes of the mouth are moist. Neck supple. No JVD or thyromegaly LUNGS: Respirations even and unlabored. Lungs essentially clear to auscultation bilaterally. HEART: Regular rate and rhythm. S1 and S2 heard. ABDOMEN: Soft. Nondistended. Nontender. EXTREMITIES: Normal range of motion. No clubbing or cyanosis. Peripheral pulses intact. No lower extremity edema NEUROLOGIC: Awake and alert. Oriented x 3. ASSESSMENT: Chest pain History of migraines History of breast cancer with chemotherapy Depression PTSD Nicotine dependence History of ascending thoracic aortic aneurysm PLAN: An acute coronary event has been ruled out Obtain 2D echo to assess cardiac structure and function Resume home cardiac medications Patient to undergo Lexiscan stress test today If negative, she may be discharged home today and follow-up with her primary milk treater in [place] Further recommendations pending patient course Nurse practitioner note has been reviewed by physician. Signing provider agrees with the documented findings, assessment, and plan of care documented by CAPACITY MANAGER as a scribe. Past Medical History Past Medical History: Cancer, COPD, GERD/Reflux, Hyperlipidemia, Hypertension, Sleep Apnea/CPAP/BIPAP, Thyroid Disorder Additional Past Medical History / Comment(s): Hx Covid 06-06-20. Migraines. Sleep apnea resolved with wt loss. Severe vertigo, uses cane as needed. Low heart rate. Hx colon polyp. Chronic back pain. Aortic aneurysm. Hx left breast cancer with surgery 06/2019, no radiation, had oral chemo. Internal hemorrhoids. Spinal stimulator-posterior lower left hip area. History of Any Multi-Drug Resistant Organisms: None Reported Past Surgical History: Bariatric Surgery, Bladder Surgery, Breast Surgery, Orthopedic Surgery Additional Past Surgical History / Comment(s): Loop recorder inserted and removed, eye surgery, left thumb surgery, right hand ring finger surgery, EGD, colonoscopy, Double Mastectomy (06/2019), Panniculectomy, sleeve gastrectomy (04-20-18), nerve stimulator placed. Past Anesthesia/Blood Transfusion Reactions: No Reported Reaction, Motion Sickness Additional Past Anesthesia/Blood Transfusion Reaction / Comment(s): . Type of Cardiac Device: Loop Device Placement Date:: 2019 Past Psychological History: Depression, PTSD Smoking Status: Current some day smoker Past Alcohol Use History: Occasional Past Drug Use History: Marijuana - Past Family History Mother Family Medical History: Cancer Additional Family Medical History / Comment(s): Mother at age 54 due to lung cancer. Patient has 2 aunts that had breast cancer. Patient does not have any children. Father Family Medical History: Coronary Artery Disease (CAD), Diabetes Mellitus Additional Family Medical History / Comment(s): Father is alive with history of CAD, DM and is on home O2. She does not know any further details. Sister(s) Family Medical History: No Reported History Additional Family Medical History / Comment(s): Patient has 2 sisters and one half-sister with no major medical problems. Brother(s) Family Medical History: Coronary Artery Disease (CAD) Additional Family Medical History / Comment(s): Patient has one brother with history of coronary artery disease status post CABG in heart failure. Medications and Allergies Home Medications Medication Instructions Recorded Confirmed Type traZODone HCL [Desyrel] 100 mg PO HS 11/21/14 12/03/23 History Atorvastatin [Lipitor] 10 mg PO HS 11/24/17 12/03/23 History Baclofen [Lioresal] 10 mg PO BID PRN 05/25/18 12/03/23 History SUMAtriptan succinate [Imitrex] 100 mg PO BID PRN 06/22/18 12/03/23 History Meclizine [Antivert] 25 mg PO BID 02/05/19 12/03/23 History Anastrozole [Arimidex] 1 mg PO DAILY 10/22/19 12/03/23 History Terazosin [Hytrin] 1 mg PO HS 10/22/19 12/03/23 History Levothyroxine Sodium [Synthroid] 112 mcg PO QAM 10/09/21 12/03/23 History Varenicline [Chantix Continuing 1 mg PO DAILY 10/09/21 12/03/23 History Pack] Alendronate Sodium [Fosamax] 70 mg PO WE 08/19/22 12/03/23 History Propranolol LA [Inderal LA] 80 mg PO HS 08/19/22 12/03/23 History Butalb/Acetaminophen/Caffeine 1 tab PO BID PRN 12/03/23 12/03/23 History [Fioricet 50-325-40] Montelukast [Singulair] 10 mg PO HS 12/03/23 12/03/23 History rOPINIRole HCL [Requip] 1 mg PO HS 12/03/23 12/03/23 History Allergies Allergy/AdvReac Type Severity Reaction Status Date / Time latex Allergy Rash/Hives Verified 12/03/23 13:08 nickel Allergy Rash/Hives Verified 12/03/23 13:08 paper tape Allergy Rash/Hives Uncoded 12/03/23 13:08 Physical Exam Vitals: Vital Signs Temp Pulse Pulse Resp BP BP Pulse Ox 12/04/23 07:00 97.5 F L 48 L 16 105/71 99 12/04/23 02:34 97.6 F 54 L 16 85/50 95 12/03/23 20:19 97.7 F 84 17 109/73 96 12/03/23 16:41 97.3 F L 87 16 130/83 95 12/03/23 15:09 97.1 F L 79 16 95 12/03/23 12:15 97.9 F 61 16 147/91 98 12/03/23 11:25 97.6 F 75 18 135/88 95 Intake and Output 12/03/23 12/04/23 12/04/23 22:59 06:59 14:59 Intake Total 118 Balance 118 Intake: Oral 118 Other: # Voids 1 2 Weight 90.718 kg Results 12/03/23 12:18 12/03/23 12:18 Cardiac Enzymes 12/03/23 12/03/23 12/03/23 Range/Units 12:18 12:18 16:58 AST 22 (14-36) U/L Troponin I <0.012 <0.012 (0.000-0.034) ng/mL 12/03/23 Range/Units 20:10 AST (14-36) U/L Troponin I <0.012 (0.000-0.034) ng/mL Coagulation 12/03/23 Range/Units 12:18 PT 10.7 (10.0-12.5) sec APTT 24.3 (22.0-30.0) sec CBC 12/03/23 Range/Units 12:18 WBC 6.9 (3.8-10.6) k/uL RBC 4.93 (3.80-5.40) m/uL Hgb 15.1 (11.4-16.0) gm/dL Hct 48.7 H (34.0-46.0) % Plt Count 268 (150-450) k/uL Comprehensive Metabolic Panel 12/03/23 Range/Units 12:18 Sodium 140 (137-145) mmol/L Potassium 4.3 (3.5-5.1) mmol/L Chloride 106 (98-107) mmol/L Carbon Dioxide 27 (22-30) mmol/L BUN 9 (7-17) mg/dL Creatinine 0.93 (0.52-1.04) mg/dL Glucose 97 (74-99) mg/dL Calcium 9.5 (8.4-10.2) mg/dL AST 22 (14-36) U/L ALT 19 (4-34) U/L Alkaline Phosphatase 102 (38-126) U/L Total Protein 6.9 (6.3-8.2) g/dL Albumin 4.3 (3.5-5.0) g/dL Current Medications Generic Name Dose Route Start Last Admin Trade Name Freq PRN Reason Stop Dose Admin Acetaminophen 650 mg 12/03/23 14:09 Acetaminophen Tab 325 Mg Tab PO Q6HR PRN Mild Pain or Fever > 100.5 Acetaminophen/Butalbital/Caffeine 1 each 12/03/23 14:12 12/04/23 06:48 Butalb/Apap/Caff 50-325-40mg Tab PO 1 each BID PRN Administration Migraine Headache Hydrocodone Bitart/Acetaminophen 1 each 12/03/23 14:09 Hydrocodone/Apap 5-325mg 1 Each Tab PO Q4HR PRN Moderate Pain (Scale 4 to 6) Anastrozole 1 mg 12/04/23 09:00 Anastrozole 1 Mg Tab PO DAILY FLORES Atorvastatin Calcium 10 mg 12/03/23 21:00 12/03/23 20:52 Atorvastatin 10 Mg Tab PO 10 mg HS FLORES Administration Baclofen 10 mg 12/03/23 14:12 Baclofen 10 Mg Tab PO BID PRN Muscle Spasm Doxazosin Mesylate 1 mg 12/03/23 21:00 12/03/23 20:52 Doxazosin 1 Mg Tab PO 1 mg HS FLORES Administration Ibuprofen 400 mg 12/03/23 14:09 Ibuprofen 400 Mg Tab PO Q6HR PRN Mild Pain or Fever > 100.5 Ketorolac Tromethamine 15 mg 12/03/23 14:09 Ketorolac 15 Mg/Ml 1 Ml Vial IVP 12/06/23 14:11 Q6HR PRN Moderate Pain (Scale 4 to 6) Levothyroxine Sodium 112 mcg 12/04/23 06:30 12/04/23 06:40 Levothyroxine 112 Mcg Tab PO 112 mcg 0630 FLORES Administration Meclizine HCl 25 mg 12/03/23 21:00 12/03/23 20:53 Meclizine 25 Mg Tab PO 25 mg BID FLORES Administration Montelukast Sodium 10 mg 12/03/23 21:00 12/03/23 20:53 Montelukast 10 Mg Tab PO 10 mg HS FLORES Administration Morphine Sulfate 4 mg 12/03/23 14:09 Morphine Sulfate 4 Mg/Ml Syringe IV Q4HR PRN Severe Pain (Scale 7 to 10) Naloxone HCl 0.2 mg 12/03/23 14:09 Naloxone 0.4 Mg/Ml 1 Ml Vial IV Q2M PRN Opioid Reversal Patient's Own ( 70 mg 12/10/23 07:00 Alendronate Sodium [ PO Fosamax] 70 Mg WE FLORES Tablet) Ondansetron HCl 4 mg 12/03/23 14:09 Ondansetron 4 Mg/2 Ml Vial IVP Q8HR PRN Nausea And Vomiting Pantoprazole Sodium 40 mg 12/04/23 09:00 Pantoprazole 40 Mg/10 Ml Vial IV DAILY FLORES Propranolol HCl 80 mg 12/03/23 21:00 12/03/23 20:52 Propranolol La 80 Mg Cap.Sa.24h PO 80 mg HS FLORES Administration Ropinirole HCl 1 mg 12/03/23 21:00 12/03/23 20:52 Ropinirole Hcl 1 Mg Tab PO 1 mg HS FLORES Administration Sumatriptan Succinate 100 mg 12/03/23 14:12 Sumatriptan Succinate 50 Mg Tab PO BID PRN Migraine Headache Trazodone HCl 100 mg 12/03/23 21:00 12/03/23 20:52 Trazodone Hcl 100 Mg Tab PO 100 mg HS FLORES Administration Varenicline 1 mg 12/04/23 09:00 Varenicline 1 Mg Tab PO DAILY FLORES Intake and Output 12/03/23 12/04/23 12/04/23 22:59 06:59 14:59 Intake Total 118 Balance 118 Intake: Oral 118 Other: # Voids 1 2 Weight 90.718 kg 12/03/23 12:18 12/03/23 12:18
[2023-12-04] MEDS: VARENICLINE 1 MG TAB PO SCH (12:46)
[2023-12-04] MEDS: ASPIRIN 81 MG PO SCH (12:46)
--- NOTE | 2023-12-04 13:01 | NM ---
EXAMINATION TYPE: NM stress lexiscan cardiolite DATE OF EXAM: 12/04/2023 COMPARISON: NONE CLINICAL INDICATION: Female, 63 years old with history of CP; TECHNIQUE: After the intravenous administration of 10.47 mCi Tc 99m Sestamibi - Cardiolite resting S PECT images acquired 45 minutes post injection. The patient received 0.4mg Lexiscan, 26.8 mCi Tc 99m Sestamibi - Stress images obtained [address] injection FINDINGS: Review of stress and rest SPECT images demonstrates no distinct reversible perfusion abnormality. Fi xed defect noted in the septal region as well as lateral wall. Gated analysis shows normal wall motio n with an estimated left ventricular ejection fraction of 69 %. IMPRESSION: No scintigraphic evidence for reversible ischemia.
--- NOTE | 2023-12-04 13:17 | CA ---
Lexiscan Nuclear Stress Test Report Name: Caleb Victoria Exam Date: 12/04/2023 11:08 Exam Location: [facility] Ht (in): 66 Wt (lb): 200 BSA: 2.00 Ordering Phys: Kaylene Booker Referring Phys: JEREMIAH Technologist: Derek Morris Age: 63 Gender: F : 1960 Procedure CPT: Indications: Reflex order-Stress test ICD-10 Codes: Patient History: Medications: SEE CHART Meds past 24 hrs: Pretest Chest Pain: STRESS TEST Lexiscan Protocol Exercise Duration (min:sec): 01:[address] Depressions (mm): Angina Score: Avitia Score: Resting HR (bpm): 53 Peak HR (bpm): 81 Resting BP (mmHg): 124 / 82 Peak BP (mmHg): 117 / 70 MPHR: 157 Target HR: 133 % MPHR: 52 METS: 1.0 Total Dose: Peak Dose: Atropine: Double Product: 9477 BP Response: Stress Termination: INFUSION COMPLETE Stress Symptoms: CHEST HEAVINESS Stress Summary: ECG ANALYSIS Resting ECG: Stress ECG: CONCLUSIONS Nondiagnostic electrocardiogram stress test Dr. Melchor Vanessa MD (Electronically Signed) Final Date: 04 December 2023 13:16
--- NOTE | 2023-12-04 13:28 | P.HPIM ---
History of Present Illness H&P Date: 12/04/23 History of present illness; patient 63-year-old lady with past medical history significant for hypothyroidism, hyperlipidemia who presented to ER because of chest pain. Patient initially was all right in the morning when she started experiencing chest pain that was central location, pressure-like, radiating down her left arm, patient was unable to catch her breath, no aggravating or relieving factor associated with chest pain. There was no complaint of nausea, vomiting or abdominal pain. Denies any orthopnea or PND. There was no complaint of swelling of feet. Patient also started having headache, has history of migraine. Because of the symptoms, patient came to the ER Initial lab work done in the ER showed WBC X.9, hemoglobin 15.1, sodium 140, potassium 4.3, BUN 9, creatinine 0.93, glucose 97, calcium 9.5, magnesium 1.9, troponin 0.012, EKG done in the ER showed heart rate of 61, no ST segment elevation or depression seen, no T-wave inversions seen. Chest x-ray done in the ER no acute cardiopulmonary process Patient admitted to internal medicine service REVIEW OF SYSTEMS: CONSTITUTIONAL: No fever, no malaise, no fatigue. HEENT: No recent visual problems or hearing problems. Denied any sore throat. CARDIOVASCULAR: As mentioned above PULMONARY: As mentioned above GASTROINTESTINAL: No diarrhea, no nausea, no vomiting, no abdominal pain. NEUROLOGICAL: As mentioned above HEMATOLOGICAL: Denies any bleeding or petechiae. GENITOURINARY: Denies any burning micturition, frequency, or urgency. MUSCULOSKELETAL/RHEUMATOLOGICAL: Denies any joint pain, swelling, or any muscle pain. ENDOCRINE: Denies any polyuria or polydipsia. The rest of the 14-point review of systems is negative. PHYSICAL EXAMINATION: GENERAL: The patient is alert and oriented x3, not in any acute distress. Well developed, well nourished. HEENT: Pupils are round and equally reacting to light. EOMI. No scleral icterus. No conjunctival pallor. Normocephalic, atraumatic. No pharyngeal erythema. No thyromegaly. CARDIOVASCULAR: S1 and S2 present. No murmurs, rubs, or gallops. PULMONARY: Chest is clear to auscultation, no wheezing or crackles. ABDOMEN: Soft, nontender, nondistended, normoactive bowel sounds. No palpable organomegaly. MUSCULOSKELETAL: No joint swelling or deformity. EXTREMITIES: No cyanosis, clubbing, or pedal edema. NEUROLOGICAL: Gross neurological examination did not reveal any focal deficits. SKIN: No rashes. Assessment and plan Chest pain, rule out acute coronary syndrome Hyperlipidemia Hypothyroidism History of migraines History of breast cancer with chemotherapy Depression PTSD Nicotine dependence History of ascending thoracic aortic aneurysm Monitor vital signs Monitor CBC Monitor CMP Continue telemetry monitoring Trend troponin Order D-dimer Ordered 2D echo Ordered stress test Resume home meds Consult cardiology Labs and medication were reviewed.. Continue same treatment. Continue with symptomatic treatment. Resume home medication. Monitor labs and vitals. DVT and GI prophylaxis. Further recommendations as per clinical course of the pat ient Dictation was produced using Skype dictation software. please excuse any grammatical, word or spelling errors. Past Medical History Past Medical History: Cancer, COPD, GERD/Reflux, Hyperlipidemia, Hypertension, Sleep Apnea/CPAP/BIPAP, Thyroid Disorder Additional Past Medical History / Comment(s): Hx Covid 06-06-20. Migraines. Sleep apnea resolved with wt loss. Severe vertigo, uses cane as needed. Low heart rate. Hx colon polyp. Chronic back pain. Aortic aneurysm. Hx left breast cancer with surgery 06/2019, no radiation, had oral chemo. Internal hemorrhoids. Spinal stimulator-posterior lower left hip area. History of Any Multi-Drug Resistant Organisms: None Reported Past Surgical History: Bariatric Surgery, Bladder Surgery, Breast Surgery, Orthopedic Surgery Additional Past Surgical History / Comment(s): Loop recorder inserted and removed, eye surgery, left thumb surgery, right hand ring finger surgery, EGD, colonoscopy, Double Mastectomy (06/2019), Panniculectomy, sleeve gastrectomy (04-20-18), nerve stimulator placed. Past Anesthesia/Blood Transfusion Reactions: No Reported Reaction, Motion Sickness Additional Past Anesthesia/Blood Transfusion Reaction / Comment(s): . Type of Cardiac Device: Loop Device Placement Date:: 2019 Past Psychological History: Depression, PTSD Smoking Status: Current some day smoker Past Alcohol Use History: Occasional Past Drug Use History: Marijuana - Past Family History Mother Family Medical History: Cancer Additional Family Medical History / Comment(s): Mother at age 54 due to lung cancer. Patient has 2 aunts that had breast cancer. Patient does not have any children. Father Family Medical History: Coronary Artery Disease (CAD), Diabetes Mellitus Additional Family Medical History / Comment(s): Father is alive with history of CAD, DM and is on home O2. She does not know any further details. Sister(s) Family Medical History: No Reported History Additional Family Medical History / Comment(s): Patient has 2 sisters and one half-sister with no major medical problems. Brother(s) Family Medical History: Coronary Artery Disease (CAD) Additional Family Medical History / Comment(s): Patient has one brother with history of coronary artery disease status post CABG in heart failure. Medications and Allergies Home Medications Medication Instructions Recorded Confirmed Type traZODone HCL [Desyrel] 100 mg PO HS 11/21/14 12/03/23 History Atorvastatin [Lipitor] 10 mg PO HS 11/24/17 12/03/23 History Baclofen [Lioresal] 10 mg PO BID PRN 05/25/18 12/03/23 History SUMAtriptan succinate [Imitrex] 100 mg PO BID PRN 06/22/18 12/03/23 History Meclizine [Antivert] 25 mg PO BID 02/05/19 12/03/23 History Anastrozole [Arimidex] 1 mg PO DAILY 10/22/19 12/03/23 History Terazosin [Hytrin] 1 mg PO HS 10/22/19 12/03/23 History Levothyroxine Sodium [Synthroid] 112 mcg PO QAM 10/09/21 12/03/23 History Varenicline [Chantix Continuing 1 mg PO DAILY 10/09/21 12/03/23 History Pack] Alendronate Sodium [Fosamax] 70 mg PO WE 08/19/22 12/03/23 History Propranolol LA [Inderal LA] 80 mg PO HS 08/19/22 12/03/23 History Butalb/Acetaminophen/Caffeine 1 tab PO BID PRN 12/03/23 12/03/23 History [Fioricet 50-325-40] Montelukast [Singulair] 10 mg PO HS 12/03/23 12/03/23 History rOPINIRole HCL [Requip] 1 mg PO HS 12/03/23 12/03/23 History Allergies Allergy/AdvReac Type Severity Reaction Status Date / Time latex Allergy Rash/Hives Verified 12/03/23 13:08 nickel Allergy Rash/Hives Verified 12/03/23 13:08 paper tape Allergy Rash/Hives Uncoded 12/03/23 13:08 Physical Exam Vitals: Vital Signs Temp Pulse Pulse Resp BP BP Pulse Ox 12/04/23 07:00 97.5 F L 48 L 16 105/71 99 12/04/23 02:34 97.6 F 54 L 16 85/50 95 12/03/23 20:19 97.7 F 84 17 109/73 96 12/03/23 16:41 97.3 F L 87 16 130/83 95 12/03/23 15:09 97.1 F L 79 16 95 12/03/23 12:15 97.9 F 61 16 147/91 98 12/03/23 11:25 97.6 F 75 18 135/88 95 Intake and Output 12/03/23 12/04/23 12/04/23 22:59 06:59 14:59 Intake Total 118 Balance 118 Intake: Oral 118 Other: # Voids 1 2 Weight 90.718 kg Results CBC & Chem 7: 12/03/23 12:18 12/03/23 12:18 Labs: Abnormal Lab Results - Last 24 Hours (Table) 12/03/23 12/03/23 Range/Units 12:18 12:18 Hct 48.7 H (34.0-46.0) % Urine Protein Trace H (Negative) Ur Leukocyte Esterase Moderate H (Negative) Urine Bacteria Rare H (None) /hpf Urine Mucus Occasional H (None) /hpf Thrombosis Risk Factor Assmnt - Choose All That Apply Each Risk Factor Represents 2 Points: Age 61-74 years Other congenital or acquired thrombophilia - If yes, enter type in comment: No Thrombosis Risk Factor Assessment Total Risk Factor Score: 2 Thrombosis Risk Factor Assessment Level: Low Risk
--- NOTE | 2023-12-05 11:29 | CA ---
Transthoracic Echo Report Name: Caleb Victoria Age: 63 Gender: F : 1960 Exam Date: 12/04/2023 11:33 Exam Location: [facility] Ht (in): 66 Wt (lb): 200 Ordering Physician: Kaylene Booker Attending/Referring Phys: [id number], Ade Air Technician Fabi Madrigal RDCS Procedure CPT: Indications: CP Cardiac Hx: Technical Quality: Fair Contrast 1: Total Dose (mL): Contrast 2: Total Dose (mL): MEASUREMENTS (Male / Female) Normal Values 2D ECHO LV Diastolic Diameter PLAX 4.8 cm 4.2 - 5.9 / 3.9 - 5.3 cm LV Systolic Diameter PLAX 3.3 cm IVS Diastolic Thickness 1.0 cm 0.6 - 1.0 / 0.6 - 0.9 cm LVPW Diastolic Thickness 1.0 cm 0.6 - 1.0 / 0.6 - 0.9 cm LV Relative Wall Thickness 0.4 RV Internal Dim ED PLAX 3.6 cm LA Systolic Diameter LX 3.8 cm 3.0 - 4.0 / 2.7 - 3.8 cm LV Diastolic Volume MOD BP 72.9 cm??? 67 - 155 / 56 - 104 cm??? LV Systolic Volume MOD BP 26.8 cm??? - 58 / 19 - 49 cm??? LV Ejection Fraction MOD BP 63.3 % >= 55 % LV Cardiac Index MOD BP 1148.1 cm???/min???m??? LV Diastolic Volume MOD 4C 71.5 cm??? LV Systolic Volume MOD 4C 25.0 cm??? LV Ejection Fraction MOD 4C 65.1 % LV Cardiac Index MOD 4C 1160.8 cm???/min???m??? LV Diastolic Length 4C 7.6 cm LV Systolic Length 4C 6.1 cm LV Diastolic Volume MOD 2C 72.0 cm??? LV Systolic Volume MOD 2C 27.0 cm??? LV Ejection Fraction MOD 2C 62.5 % LV Cardiac Index MOD 2C 1120.8 cm???/min???m??? LV Diastolic Length 2C 7.3 cm LV Systolic Length 2C 6.7 cm LA Volume 50.4 cm??? 18 - 58 / 22 - 52 cm??? LA Volume Index 24.1 cm???/m??? 16 - 28 cm???/m??? M-MODE Aortic Root Diameter MM 3.4 cm LA Systolic Diameter MM 1.8 cm LA Ao Ratio MM 0.5 DOPPLER AV Peak Velocity 114.0 cm/s AV Peak Gradient 5.2 mmHg MV Area PHT 3.6 cm??? Mitral E Point Velocity 112.3 cm/s Mitral A Point Velocity 86.6 cm/s Mitral E to A Ratio 1.3 MV Deceleration Time 210.7 ms TR Peak Velocity 214.2 cm/s TR Peak Gradient 18.3 mmHg Right Ventricular Systolic Press 23.3 mmHg FINDINGS Left Ventricle Left ventricular ejection fraction is estimated at 60-65 %. Left ventricular cavity size normal. Left ventricular wall thickness normal. No obvious regional wall motion abnormalities. Right Ventricle Mild right ventricular dilatation. Right ventricular systolic pressure within normal limits. Right Atrium Normal right atrial size. No right atrial thrombus or mass seen. Left Atrium Normal left atrial size. No spontaneous echo contrast seen in the left atrium. Mitral Valve Structurally normal mitral valve. No evidence for mitral valve prolapse. No mitral stenosis. Trace to mild mitral regurgitation. Aortic Valve Trileaflet aortic valve. No aortic valve stenosis or regurgitation. Tricuspid Valve Structurally normal tricuspid valve. Mild tricuspid regurgitation. Pulmonic Valve Pulmonic valve not well visualized. No pulmonic regurgitation. Pericardium No pericardial effusion. Aorta Normal size aortic root and proximal ascending aorta. CONCLUSIONS Normal biventricular systolic function Previewed by: Dr. Melchor Vanessa MD (Electronically Signed) Final Date: 05 December 2023 11:28
--- NOTE | 2023-12-05 13:00 | P.DS ---
Providers Date of admission: 12/03/23 14:35 Expected date of discharge: 12/04/23 Attending physician: Silvio Bernardo MD [facility] Course: Discharge diagnoses; Chest pain,acute coronary syndrome ruled out Hyperlipidemia Hypothyroidism History of migraines History of breast cancer with chemotherapy Depression PTSD Nicotine dependence History of ascending thoracic aortic aneurysm Hospital course; patient 63-year-old lady with past medical history significant for hypothyroidism, hyperlipidemia who presented to ER because of chest pain. Patient initially was all right in the morning when she started experiencing chest pain that was central location, pressure-like, radiating down her left arm, patient was unable to catch her breath, no aggravating or relieving factor associated with chest pain. There was no complaint of nausea, vomiting or abdominal pain. Denies any orthopnea or PND. There was no complaint of swelling of feet. Patient also started having headache, has history of migraine. Because of the symptoms, patient came to the ER Initial lab work done in the ER showed WBC X.9, hemoglobin 15.1, sodium 140, potassium 4.3, BUN 9, creatinine 0.93, glucose 97, calcium 9.5, magnesium 1.9, troponin 0.012, EKG done in the ER showed heart rate of 61, no ST segment elevation or depression seen, no T-wave inversions seen. Chest x-ray done in the ER no acute cardiopulmonary process Patient admitted to internal medicine service. Patient was eval by cardiology, they ordered stress test which was negative for any ischemia. Cardiology cleared the patient for discharge PHYSICAL EXAMINATION: GENERAL: The patient is alert and oriented x3, not in any acute distress. Well developed, well nourished. HEENT: Pupils are round and equally reacting to light. EOMI. No scleral icterus. No conjunctival pallor. Normocephalic, atraumatic. No pharyngeal erythema. No thyromegaly. CARDIOVASCULAR: S1 and S2 present. No murmurs, rubs, or gallops. PULMONARY: Chest is clear to auscultation, no wheezing or crackles. ABDOMEN: Soft, nontender, nondistended, normoactive bowel sounds. No palpable organomegaly. MUSCULOSKELETAL: No joint swelling or deformity. EXTREMITIES: No cyanosis, clubbing, or pedal edema. NEUROLOGICAL: Gross neurological examination did not reveal any focal deficits. SKIN: No rashes. Dictation was produced using dragon dictation software. please excuse any gramm atical, word or spelling errors. Plan - Discharge Summary Discharge Rx Participant: Yes New Discharge Prescriptions: Continue traZODone HCL [Desyrel] 100 mg PO HS Atorvastatin [Lipitor] 10 mg PO HS Baclofen [Lioresal] 10 mg PO BID PRN PRN Reason: Muscle Spasm SUMAtriptan succinate [Imitrex] 100 mg PO BID PRN PRN Reason: pain Meclizine [Antivert] 25 mg PO BID Terazosin [Hytrin] 1 mg PO HS Anastrozole [Arimidex] 1 mg PO DAILY Varenicline [Chantix Continuing Pack] 1 mg PO DAILY Propranolol LA [Inderal LA] 80 mg PO HS Butalb/Acetaminophen/Caffeine [Fioricet 50-325-40] 1 tab PO BID PRN PRN Reason: Migraine Headache Levothyroxine Sodium [Synthroid] 112 mcg PO QAM Alendronate Sodium [Fosamax] 70 mg PO WE Montelukast [Singulair] 10 mg PO HS rOPINIRole HCL [Requip] 1 mg PO HS Discharge Medication List traZODone HCL [Desyrel] 100 mg PO HS 11/21/14 [History] Atorvastatin [Lipitor] 10 mg PO HS 11/24/17 [History] Baclofen [Lioresal] 10 mg PO BID PRN 05/25/18 [History] SUMAtriptan succinate [Imitrex] 100 mg PO BID PRN 06/22/18 [History] Meclizine [Antivert] 25 mg PO BID 02/05/19 [History] Anastrozole [Arimidex] 1 mg PO DAILY 10/22/19 [History] Terazosin [Hytrin] 1 mg PO HS 10/22/19 [History] Levothyroxine Sodium [Synthroid] 112 mcg PO QAM 10/09/21 [History] Varenicline [Chantix Continuing Pack] 1 mg PO DAILY 10/09/21 [History] Alendronate Sodium [Fosamax] 70 mg PO WE 08/19/22 [History] Propranolol LA [Inderal LA] 80 mg PO HS 08/19/22 [History] Butalb/Acetaminophen/Caffeine [Fioricet 50-325-40] 1 tab PO BID PRN 12/03/23 [History] Montelukast [Singulair] 10 mg PO HS 12/03/23 [History] rOPINIRole HCL [Requip] 1 mg PO HS 12/03/23 [History] Follow up Appointment(s)/Referral(s): Hugo Preston MD [Primary Care Provider] - 1-2 days (please call for an appointment!! thank you) Patient Instructions/Handouts: Regadenoson (By injection), Chest Pain (GEN) Activity/Diet/Wound Care/Special Instructions: Please follow up with [facility] in [place] in the next week thank you Discharge Disposition: HOME SELF-CARE
[2023-12-10] MEDS ORDERED: PATIENT'S OWN (Alendronate Sodium [Fosamax] 70 MG Tablet) PO SCH (07:00)
== END 2023-12-04 15:06 | disposition home or self-care (01) ==
LOC: EC 11:23 → 6NMEDSUR 14:35
PROVIDERS: ADMIT Internal Medicine; ATTEND Internal Medicine
DX: R07.89 Other chest pain (principal); G43.909 Migraine, unspecified, not intractable, without status migrainosus; J44.9 Chronic obstructive pulmonary disease, unspecified; E78.5 Hyperlipidemia, unspecified; I10 Essential (primary) hypertension; M79.602 Pain in left arm; E03.9 Hypothyroidism, unspecified; I71.21 Aneurysm of the ascending aorta, without rupture; F43.10 Post-traumatic stress disorder, unspecified; F32.A Depression, unspecified; F17.200 Nicotine dependence, unspecified, uncomplicated; Z79.811 Long term (current) use of aromatase inhibitors; Z79.890 Hormone replacement therapy; Z79.83 Long term (current) use of bisphosphonates; Z79.899 Other long term (current) drug therapy; Z91.040 Latex allergy status; Z91.048 Other nonmedicinal substance allergy status; Z85.3 Personal history of malignant neoplasm of breast; Z92.21 Personal history of antineoplastic chemotherapy
CPT/HCPCS: 96375 ×2; 96374; 99285; 36415; 93005; 93017; 93306; 80053; 83690; 83735; 84484; 85025; 85610; 85730; 81001; 71046; 78452; G0378 ×2; A9500; J1200; J1100; J2765; S0170; J2785; J1885; C9113

== ENCOUNTER 2024-02-19 08:33 | Day surgery (SDC) | payer MEDICARE ==
[2024-02-19] MEDS: IV FLUID CONTINUATION 1,000 ML IV ONE ×2 (08:58→09:41)
[2024-02-19 09:10] VITALS: TEMP 97.6
[2024-02-19] MEDS: LACTATED RINGERS 1,000 ML IV SCH (09:10)
[2024-02-19] MEDS ORDERED: PROPOFOL 10 MG/ML 20 ML VIAL IV ONE (09:42)
[2024-02-19] MEDS ORDERED: LIDOCAINE 2% (PF) 20 MG/ML 5 ML VIAL ONE (09:42)
--- NOTE | 2024-02-19 10:15 | P.OP ---
Date of Procedure: 02/19/24 Preoperative Diagnosis: Gerd Left lower quadrant pain Postoperative Diagnosis: Antral gastritis Sigmoid colon polyp Procedure(s) Performed: EGD Colonoscopy Anesthesia: MAC Surgeon: Navid Coley Pathology: other (Antrum, sigmoid colon:) Condition: stable Disposition: PACU Description of Procedure: Patient was placed on the endoscopy table lateral position. She received IV sedation. The gas was placed oropharynx passed in the esophagus and stomach. Scope was placed through the pylorus. First portion duodenum appeared normal. Scope was then back to the antrum this was mildly Flaim. A biopsy was performed. The scope was brought back through the gastric sleeve. The GE junction was at 40 cm. The distal esophagus appeared normal. The proximal esophagus appeared normal. There is no other gas pathology seen. Scope withdrawn for the patient. Next digital rectal exams performed which revealed a few external hemorrhoids. The flexible colonoscope was then placed patient anus passed throughout the entire colon. The ileocecal valve was visualized. The cecum, ascending and transverse colon appeared normal. The descending colon appeared normal. The sigmoid colon there was small sessile polyp. Removed with a cold forcep. The remaining sigmoid colon and rectum appeared normal. Scope withdrawn the patient.
[2024-02-19 10:37] VITALS: BP 111/79; PULSE 67; RESP 18
== END 2024-02-19 11:24 | disposition home or self-care (01) ==
LOC: ORWHC2ENDO 08:33
PROVIDERS: ATTEND Surgery
DX: K29.50 Unspecified chronic gastritis without bleeding (principal); K21.9 Gastro-esophageal reflux disease without esophagitis; K63.5 Polyp of colon; I10 Essential (primary) hypertension; E78.5 Hyperlipidemia, unspecified; G47.33 Obstructive sleep apnea (adult) (pediatric); G43.909 Migraine, unspecified, not intractable, without status migrainosus; E07.9 Disorder of thyroid, unspecified; F17.200 Nicotine dependence, unspecified, uncomplicated; Z79.890 Hormone replacement therapy; Z79.899 Other long term (current) drug therapy; Z91.040 Latex allergy status; Z88.8 Allergy status to other drugs, medicaments and biological substances
CPT/HCPCS: 43239; 45380; 88305

== ENCOUNTER → 2024-04-08 | Outpatient (CLI) | payer MEDICARE ==
--- NOTE | 2024-04-08 09:13 | FL ---
EXAMINATION TYPE: FL UGI air w esophagus DATE OF EXAM: 04/08/2024 COMPARISON: 04/28/2023 HISTORY: 63-year-old female K21.99, GERD. Patient with history of sleeve gastrectomy 2019 and more re cent Miquel fundoplication April 2023. TECHNIQUE: A single contrast esophagram and UGI study is performed. A total of 2 minutes 10 seconds of fluoroscopic time was utilized during procedure and 60 images obtained. Total dose area product ( DAP) in uGy*m?, mGy*cm? (or similar): 50. FINDINGS: The swallowing mechanism is normal. There is mild hypertrophy of the cricopharyngeus without obstruct ion. Some additional anterior endplate spondylosis C5-C6 causing mild impression along the back wall of the cervical esophagus. Intrathoracic esophagus shows normal course and caliber. There is mild esophageal dysmotility with so me blunted secondary stripping waves. Intermittent delayed clearance of contrast from the esophagus. Alignment for single contrast technique, no abnormal filling defect or mucosal lesion is seen. There is recurrence with a small fixed hiatal hernia present. Mild gastroesophageal reflux is seen du ring the course of the exam. Postsurgical changes of sleeve gastrectomy with unremarkable appearance to the stomach and duodenal s weep on single contrast imaging. IMPRESSION: 1. Recurrence of a small fixed hiatal hernia and at least mild gastroesophageal reflux visualized. 2. Mild CP muscle hypertrophy and mild esophageal dysmotility. 3. Status post sleeve gastrectomy. [facility], , 04/08/2024 9:10 AM
== END | disposition home or self-care (01) ==
LOC: RADFLMAIN 07:35
PROVIDERS: ATTEND Surgery
CPT/HCPCS: 74246

== ENCOUNTER 2024-04-26 09:44 | Emergency (ER) | payer MEDICARE ==
[2024-04-26 10:38] LABS: Basophils % (A) 0 %; Eosinophils # (A) 0.2 k/uL (0-0.7); Eosinophils % (A) 2 %; HCT 45.6 % (34.0-46.0); HGB 14.6 gm/dL (11.4-16.0); Lymphocytes # (A) 1.5 k/uL (1.0-4.8); Lymphocytes % (A) 16 %; MCH 30.6 pg (25.0-35.0); MCV 95.7 fL (80.0-100.0); Mean Platelet Volume 7.5; Monocytes # (A) 0.4 k/uL (0-1.0); Monocytes % (A) 5 %; Neutrophils % (A) 76 %; Platelet Count 282 k/uL (150-450); RBC 4.76 m/uL (3.80-5.40); RDW 14.2 % (11.5-15.5); WBC 9.2 k/uL (3.8-10.6)
[2024-04-26 10:59] LABS: ALT 38 U/L (4-34); AST 30 U/L (14-36); African American GFR (CKD) 69 (>60 ml/min/1.73 sqM); Albumin 4.4 g/dL (3.5-5.0); Alkaline Phosphatase 90 U/L (38-126); Anion Gap 2 mmol/L; Blood Urea Nitrogen 17 mg/dL (7-17); Calcium 9.6 mg/dL (8.4-10.2); Carbon Dioxide 35 mmol/L (22-30); Chloride 102 mmol/L (98-107); Glucose 104 mg/dL (74-99); Non-African American GFR(CKD) 60 (>60 ml/min/1.73 sqM); Sodium 139 mmol/L (137-145); Total Bilirubin 0.7 mg/dL (0.2-1.3); Total Protein 7.5 g/dL (6.3-8.2)
[2024-04-26 11:12] LABS: INR 0.9 (<1.2); Partial Thromboplastin Time 23.3 sec (22.0-30.0); Prothrombin Time 10.2 sec (10.0-12.5)
--- NOTE | 2024-04-26 11:20 | ED ---
Dizziness HPI - General Chief Complaint: Syncope Stated Complaint: Fall-Emigdio hip/back pain Time Seen by Provider: 04/26/24 10:03 Source: patient, RN notes reviewed Mode of arrival: ambulatory Limitations: no limitations - History of Present Illness Initial Comments: This is a 63-year-old female with history of COPD and cancer presenting for syncope and dizziness that started this morning. Patient states she awoke and got out of bed when she began experiencing dizziness followed by an unwitnessed syncopal episode lasting an undetermined amount of time. Patient states upon waking she was able to use furniture to help her self to her feet and onto a couch, not spending a significant amount of time on the ground after waking. Patient states she fell onto her right side with new low back and right hip pain (10 out of 10) since that time. Patient endorses history of vertigo with sensation of room spinning but states that this sensation is different from that. Patient also endorses some pain on the right side of her head. Endorses daily use of ASA 81 but otherwise denies use of anticoagulants or antiplatelet medication. Patient denies neck pain, radiculopathy, paresthesia, hemiplegia, visual changes, palpitations, chest pain, dyspnea. MD Complaint: dizziness, lightheadedness Onset/Timin Time: 07:00 Timing: sudden onset Description: "room spinning", lightheadedness, off-balance History of Same: Yes History of Trauma: No Severity: moderate Worsens With: movement, position - Related Data Home Medications Medication Instructions Recorded Confirmed traZODone HCL [Desyrel] 100 mg PO HS 11/21/14 04/26/24 Atorvastatin [Lipitor] 10 mg PO HS 11/24/17 04/26/24 Baclofen [Lioresal] 10 mg PO BID 05/25/18 04/26/24 SUMAtriptan succinate [Imitrex] 100 mg PO BID PRN 06/22/18 04/26/24 Meclizine [Antivert] 25 mg PO BID 02/05/19 04/26/24 Anastrozole [Arimidex] 1 mg PO DAILY 10/22/19 04/26/24 Terazosin [Hytrin] 1 mg PO HS 10/22/19 04/26/24 Levothyroxine Sodium [Synthroid] 112 mcg PO DAILY 10/09/21 04/26/24 Varenicline [Chantix Continuing 1 mg PO DAILY 10/09/21 04/26/24 Pack] Alendronate Sodium [Fosamax] 70 mg PO WE 08/19/22 04/26/24 Propranolol LA [Inderal LA] 80 mg PO HS 08/19/22 04/26/24 Butalb/Acetaminophen/Caffeine 1 tab PO BID PRN 12/03/23 04/26/24 [Fioricet 50-325-40] Montelukast [Singulair] 10 mg PO HS 12/03/23 04/26/24 Omeprazole 20 mg PO BID 02/19/24 04/26/24 Cyclobenzaprine [Flexeril] 10 mg PO BID 04/26/24 04/26/24 Prochlorperazine [Compazine] 10 mg PO BID 04/26/24 04/26/24 rOPINIRole HCL 4 mg PO HS 04/26/24 04/26/24 Previous Rx's Medication Instructions Recorded Ibuprofen [Motrin] 800 mg PO Q8HR PRN #30 tab 04/26/24 Allergies Allergy/AdvReac Type Severity Reaction Status Date / Time latex Allergy Rash/Hives Verified 04/26/24 13:23 nickel Allergy Rash/Hives Verified 04/26/24 13:23 paper tape Allergy Rash/Hives Uncoded 02/19/24 09:02 Review of Systems ROS Statement: Those systems with pertinent positive or pertinent negative responses have been documented in the HPI. ROS Other: All systems not noted in ROS Statement are negative. Past Medical History Past Medical History: Cancer, COPD, GERD/Reflux, Hyperlipidemia, Hypertension, Sleep Apnea/CPAP/BIPAP, Thyroid Disorder Additional Past Medical History / Comment(s): Hx Covid 06-06-20. Migraines. Sleep apnea resolved with wt loss. Severe vertigo, uses cane as needed. Low heart rate. Hx colon polyp. Chronic back pain. Aortic aneurysm. Hx left breast cancer with surgery 06/2019, no radiation, had oral chemo. Internal hemorrhoids. Spinal stimulator-posterior lower left hip area. History of Any Multi-Drug Resistant Organisms: None Reported Past Surgical History: Bariatric Surgery, Bladder Surgery, Breast Surgery, Orthopedic Surgery Additional Past Surgical History / Comment(s): Loop recorder inserted and removed, eye surgery, left thumb surgery, right hand ring finger surgery, EGD, colonoscopy, Double Mastectomy (06/2019), Panniculectomy, sleeve gastrectomy (04-20-18), nerve stimulator placed. Past Anesthesia/Blood Transfusion Reactions: No Reported Reaction, Motion Sickness Additional Past Anesthesia/Blood Transfusion Reaction / Comment(s): . Type of Cardiac Device: Loop Device Placement Date:: 2019 Past Psychological History: Depression, PTSD Smoking Status: Current some day smoker - Past Family History Mother Family Medical History: Cancer Additional Family Medical History / Comment(s): Mother at age 54 due to lung cancer. Patient has 2 aunts that had breast cancer. Patient does not have any children. Father Family Medical History: Coronary Artery Disease (CAD), Diabetes Mellitus Additional Family Medical History / Comment(s): Father is alive with history of CAD, DM and is on home O2. She does not know any further details. Sister(s) Family Medical History: No Reported History Additional Family Medical History / Comment(s): Patient has 2 sisters and one half-sister with no major medical problems. Brother(s) Family Medical History: Coronary Artery Disease (CAD) Additional Family Medical History / Comment(s): Patient has one brother with history of coronary artery disease status post CABG in heart failure. General Exam Limitations: no limitations General appearance: alert, in no apparent distress Head exam: Present: atraumatic, normocephalic, normal inspection Eye exam: Present: normal appearance, PERRL, EOMI, other. Absent: scleral icterus, conjunctival injection, nystagmus (Negative hints exam.), periorbital swelling Pupils: Present: normal accommodation ENT exam: Present: normal exam, mucous membranes moist Neck exam: Present: normal inspection. Absent: tenderness, meningismus, lymphadenopathy Respiratory exam: Present: normal lung sounds bilaterally. Absent: respiratory distress, wheezes, rales, rhonchi, stridor Cardiovascular Exam: Present: regular rate, normal rhythm, normal heart sounds. Absent: systolic murmur, diastolic murmur, rubs, gallop, clicks GI/Abdominal exam: Present: soft, normal bowel sounds. Absent: distended, tenderness, guarding, rebound, rigid Extremities exam: Present: normal inspection, full ROM, tenderness (Positive right lateral hip exquisite tenderness without ecchymosis or obvious crepitus or deformity.), normal capillary refill. Absent: pedal edema, joint swelling, calf tenderness Back exam: Present: normal inspection, tenderness (Positive vertebral tenderness from about T6 to lumbosacral spine without obvious crepitus or step-off.), paraspinal tenderness, vertebral tenderness Neurological exam: Present: alert, oriented X3, CN II-XII intact Psychiatric exam: Present: normal affect, normal mood Skin exam: Present: warm, dry, intact, normal color. Absent: rash Course Vital Signs 04/26/24 04/26/24 04/26/24 10:02 11:22 11:31 Temperature 97.5 F L Pulse Rate 77 68 Pulse Rate [ 71 Environmental Services Supervisor ] Respiratory 20 18 Rate Blood Pressure 135/69 138/104 Blood Pressure [Right Arm Sitting] Blood Pressure [Right Arm Standing] Blood Pressure 137/89 [Right Arm Supine] O2 Sat by Pulse 95 96 Oximetry 04/26/24 04/26/24 04/26/24 11:34 11:37 14:02 Temperature 98.2 F Pulse Rate 73 Pulse Rate [ 79 81 Environmental Services Supervisor ] Respiratory 18 Rate Blood Pressure 116/99 Blood Pressure 139/85 [Right Arm Sitting] Blood Pressure 124/91 [Right Arm Standing] Blood Pressure [Right Arm Supine] O2 Sat by Pulse 95 Oximetry Medical Decision Making - Medical Decision Making Was pt. sent in by a medical professional or institution ([facility], [facility], urgent care, hospital, or fci...) When possible be specific @ -No Did you speak to anyone other than the patient for history (EMS, parent, family, police, friend...)? What history was obtained from this source @ -No Did you review nursing and triage notes (agree or disagree)? Why? @ -I reviewed and agree with nursing and triage notes Were old charts reviewed (outside hosp., previous admission, EMS record, old EKG, old radiological studies, urgent care reports/EKG's, fci records)? Report findings @ -No old charts were reviewed Differential Diagnosis (chest pain, altered mental status, abdominal pain women, abdominal pain men, vaginal bleeding, weakness, fever, dyspnea, syncope, headache, dizziness, GI bleed, back pain, seizure, CVA, palpatations, mental health, musculoskeletal)? @ -Differential Dizziness: Benign paroxysmal positional Vertigo, Meniere's disease, otitis media, acoustic neuroma, vertebrobasilar insufficiency, cerebellar stroke, encephalitis, hypovol emic, arrhythmia, coronary artery syndrome, anemia, this is not meant to be an all-inclusive list Differential Back Pain: Strain, zoster, cauda equina syndrome, epidural abscess, vertebral osteomyelit is, discitis, fracture, subluxation, disc herniation, DJD, spinal stenosis, dissection, AAA, pancreatitis, peptic ulcer disease, pyelonephritis, kidney stone, this is not meant to be an all-inclusive list. EKG interpreted by me (3pts min.). @ -Sinus rhythm without ST changes or T wave inversion. Ventricular rate 70 bpm, PACHECO 155 ms, QRS duration 87 ms, QTc 416. X-rays interpreted by me (1pt min.). @ -X-rays of hip, lower back and chest showed no obvious fractures or dislocation. CT interpreted by me (1pt min.). @ -None done U/S interpreted by me (1pt. min.). @ -None done What testing was considered but not performed or refused? (CT, X-rays, U/S, labs)? Why? @ -Considered head neck CT but due to no obvious physical exam findings and no complaints this was not performed. What meds were considered but not given or refused? Why? @ -None Did you discuss the management of the patient with other professionals (professionals i.e. , PA, [employer], lab, RT, psych nurse, home health care social worker, assistant professor of mathematics, teacher, escrow officer, disability case manager)? Give summary @ -No Was smoking cessation discussed for >3mins.? @ -No Was critical care preformed (if so, how long)? @ -No Were there social determinants of health that impacted care today? How? (Homelessness, low income, unemployed, alcoholism, drug addiction, tra nsportation, low edu. Level, literacy, decrease access to med. care, long-term, rehab)? @ -No Was there de-escalation of care discussed even if they declined (Discuss DNR or withdrawal of care, Hospice)? DNR status @ -No What co-morbidities impacted this encounter? (DM, HTN, Smoking, COPD, CAD, Cancer, CVA, ARF, Chemo, Hep., AIDS, mental health diagnosis, sleep apnea, morbid obesity)? @ -Cancer, COPD Was patient admitted / discharged? Hospital course, mention meds given and route, prescriptions, significant lab abnormalities, going to OR and other pertinent info. @ -Discharge. Hip, lower back and chest x-rays were unremarkable with no obvious fractures or dislocations. Orthostatic vital signs were normal, as was lab work. Patient notes pain relief with IV Zofran, Toradol and Dilaudid as well as p.o. meclizine. Patient states she is feeling better and would like to go home. Advised return to ER if experiencing worsening headache, neck pain, paresthesia, dizziness, altered mental status, altered LOC, syncope. Undiagnosed new problem with uncertain prognosis? @ -No Drug Therapy requiring intensive monitoring for toxicity (Heparin, Nitro, Insulin, Cardizem)? @ -No Were any procedures done? @ -No Diagnosis/symptom? @ -Orthostasis syncope, hip contusion Acute, or Chronic, or Acute on Chronic? @ -Acute Uncomplicated (without systemic symptoms) or Complicated (systemic symptoms)? @ -Complicated Side effects of treatment? @ -No Exacerbation, Progression, or Severe Exacerbation? @ -No Poses a threat to life or bodily function? How? (Chest pain, [place], [place], pneumonia, PE, COPD, DKA, ARF, appy, cholecystitis, CVA, Diverticulitis, Homicidal, Suicidal, threat to staff... and all critical care pts) @ -No - Lab Data Result diagrams: 04/26/24 10:06 04/26/24 10:06 Lab Results 04/26/24 04/26/24 04/26/24 Range/Units 10:06 10:06 10:06 WBC 9.2 (3.8-10.6) k/uL RBC 4.76 (3.80-5.40) m/uL Hgb 14.6 (11.4-16.0) gm/dL Hct 45.6 (34.0-46.0) % MCV 95.7 (80.0-100.0) fL MCH 30.6 (25.0-35.0) pg MCHC 32.0 (31.0-37.0) g/dL RDW 14.2 (11.5-15.5) % Plt Count 282 (150-450) k/uL MPV 7.5 Neutrophils % 76 % Lymphocytes % 16 % Monocytes % 5 % Eosinophils % 2 % Basophils % 0 % Neutrophils # 7.0 (1.3-7.7) k/uL Lymphocytes # 1.5 (1.0-4.8) k/uL Monocytes # 0.4 (0-1.0) k/uL Eosinophils # 0.2 (0-0.7) k/uL Basophils # 0.0 (0-0.2) k/uL PT 10.2 (10.0-12.5) sec INR 0.9 (<1.2) APTT 23.3 (22.0-30.0) sec Sodium 139 (137-145) mmol/L Potassium 5.0 (3.5-5.1) mmol/L Chloride 102 (98-107) mmol/L Carbon Dioxide 35 H (22-30) mmol/L Anion Gap 2 mmol/L BUN 17 (7-17) mg/dL Creatinine 1.01 (0.52-1.04) mg/dL Est GFR (CKD-EPI)AfAm 69 (>60 ml/min/1.73 sqM) Est GFR (CKD-EPI)NonAf 60 (>60 ml/min/1.73 sqM) Glucose 104 H (74-99) mg/dL Calcium 9.6 (8.4-10.2) mg/dL Total Bilirubin 0.7 (0.2-1.3) mg/dL AST 30 (14-36) U/L ALT 38 H (4-34) U/L Alkaline Phosphatase 90 (38-126) U/L Troponin I (0.000-0.034) ng/mL Total Protein 7.5 (6.3-8.2) g/dL Albumin 4.4 (3.5-5.0) g/dL 04/26/24 Range/Units 10:06 WBC (3.8-10.6) k/uL RBC (3.80-5.40) m/uL Hgb (11.4-16.0) gm/dL Hct (34.0-46.0) % MCV (80.0-100.0) fL MCH (25.0-35.0) pg MCHC (31.0-37.0) g/dL RDW (11.5-15.5) % Plt Count (150-450) k/uL MPV Neutrophils % % Lymphocytes % % Monocytes % % Eosinophils % % Basophils % % Neutrophils # (1.3-7.7) k/uL Lymphocytes # (1.0-4.8) k/uL Monocytes # (0-1.0) k/uL Eosinophils # (0-0.7) k/uL Basophils # (0-0.2) k/uL PT (10.0-12.5) sec INR (<1.2) APTT (22.0-30.0) sec Sodium (137-145) mmol/L Potassium (3.5-5.1) mmol/L Chloride (98-107) mmol/L Carbon Dioxide (22-30) mmol/L Anion Gap mmol/L BUN (7-17) mg/dL Creatinine (0.52-1.04) mg/dL Est GFR (CKD-EPI)AfAm (>60 ml/min/1.73 sqM) Est GFR (CKD-EPI)NonAf (>60 ml/min/1.73 sqM) Glucose (74-99) mg/dL Calcium (8.4-10.2) mg/dL Total Bilirubin (0.2-1.3) mg/dL AST (14-36) U/L ALT (4-34) U/L Alkaline Phosphatase (38-126) U/L Troponin I <0.012 (0.000-0.034) ng/mL Total Protein (6.3-8.2) g/dL Albumin (3.5-5.0) g/dL Disposition Clinical Impression: Syncope, Contusion of right hip, Low back pain Disposition: HOME SELF-CARE Condition: Good Instructions (If sedation given, give patient instructions): Syncope (ED) Prescriptions: Ibuprofen [Motrin] 800 mg PO Q8HR PRN #30 tab PRN Reason: Pain Is patient prescribed a controlled substance at d/c from ED?: No Referrals: Hugo Preston MD [Primary Care Provider] - 1-2 days Time of Disposition: 13:26
--- NOTE | 2024-04-26 11:22 | XR ---
EXAMINATION TYPE: XR Hip Bilateral and AP pelvis DATE OF EXAM: 04/26/2024 10:50 AM COMPARISON: None CLINICAL INDICATION: Female, 63 years old with history of fall bilat hip pain lower back pain; [facility] TECHNIQUE: XR Hip Bilateral and AP pelvis; hip was examined in the frontal and lateral projections an d a AP pelvis. FINDINGS: No evidence for acute process, joint dislocation or significant soft tissue swelling. Osteo phyte formation of the superior acetabulum of the hip. There is mild joint space narrowing. IMPRESSION: 1. No evidence for acute process. 2. Mild hip osteoarthrosis. [facility], , 04/26/2024 11:20 AM
[2024-04-26 11:24] VITALS: RESP 18
[2024-04-26] MEDS: ONDANSETRON 4 MG/2 ML VIAL IVP STA (11:24)
[2024-04-26] MEDS: KETOROLAC 15 MG/ML 1 ML VIAL IVP STA ×2 (11:25→13:10)
[2024-04-26] MEDS: HYDROmorphone 0.5 MG/0.5 ML SYRINGE IVP STA ×2 (11:26→13:09)
[2024-04-26] MEDS: MECLIZINE 12.5 MG TAB PO STA (11:27)
--- NOTE | 2024-04-26 11:30 | XR ---
EXAMINATION TYPE: XR lumbar spine 2 or 3V DATE OF EXAM: 04/26/2024 10:50 AM COMPARISON: None CLINICAL INDICATION: Female, 63 years old with history of fall bilat hip pain lower back pain; TECHNIQUE: XR lumbar spine 2 or 3V - Frontal, lateral and coned in L5-S1 lateral views of the spine. FINDINGS: No evidence of any acute osseous pathology. No evidence of loss of vertebral body height i s seen. There is normal alignment of the lumbar vertebral bodies. Scattered disc space narrowing. Mul tilevel marginal osteophyte formation throughout the visualized spine. There is facet joint arthropat hy throughout the spine. Scattered at least mild neural foraminal stenosis. Nerve stimulator device w ith leads terminating across the spine. IMPRESSION: 1. No acute fracture. 2. Mild multilevel disc degeneration. [facility], , 04/26/2024 11:28 AM
--- NOTE | 2024-04-26 11:33 | XR ---
EXAMINATION TYPE: XR chest 2V DATE OF EXAM: 04/26/2024 10:50 AM COMPARISON: Chest radiographs from 2023 CLINICAL INDICATION: Female, 63 years old with history of syncope; [facility] TECHNIQUE: XR chest 2V Frontal and lateral views of the chest. FINDINGS: Lungs/Pleura: There is no evidence of pleural effusion, focal consolidation, or pneumothorax. Pulmonary vascularity: Unremarkable. Heart/mediastinum: Cardiomediastinal silhouette is unremarkable. Musculoskeletal: No acute osseous pathology. Other findings: Nerve stimulator leads project over the spine. IMPRESSION: No acute cardiopulmonary disease/process. [facility], , 04/26/2024 11:30 AM
[2024-04-26 14:03] VITALS: BP 116/99; PULSE 73; TEMP 98.2
== END 2024-04-26 14:03 | disposition home or self-care (01) ==
LOC: EC 09:44
DX: S70.01XA Contusion of right hip, initial encounter (principal); M54.50 Low back pain, unspecified; R55 Syncope and collapse; F17.200 Nicotine dependence, unspecified, uncomplicated; Z91.040 Latex allergy status; Z88.8 Allergy status to other drugs, medicaments and biological substances; W18.30XA Fall on same level, unspecified, initial encounter
CPT/HCPCS: 36415; 93005; 80053; 84484; 85025; 85610; 85730; 72100; 73521; 71046; 99284; 96374; 96375 ×2; 96376 ×2; J2405; J1885; J1171

== ENCOUNTER 2024-05-05 07:04 | Day surgery (SDC) | payer MEDICARE ==
[~2024-05-05 07:04] MED LIST changes: -ACETAMINOPHEN TAB 500 MG TAB PO PRN; -DEXAMETHASONE SOD PHOSPHATE 4 MG/ML 1 ML VIAL IV ONE; -HEPARIN SODIUM,PORCINE/PF 5,000 UNIT/0.5 ML SYRINGE SQ PRN; +LIDOCAINE 1% (10MG/ML) FOR IV START INTRADERMA PRN; -MIDAZOLAM 2 MG/2 ML VIAL IV PRN; -ONDANSETRON 4 MG/2 ML VIAL IVP ONE; -SCOPOLAMINE 1 MG/72 HR PATCH TRANSDERM ONE
[2024-05-05] MEDS: ACETAMINOPHEN TAB 500 MG TAB PO PRN (08:06)
[2024-05-05] MEDS: LACTATED RINGERS 1,000 ML IV SCH (08:10)
[2024-05-05] MEDS: IV FLUID CONTINUATION 1,000 ML IV ONE (08:10)
[2024-05-05] MEDS: DEXAMETHASONE SOD PHOSPHATE 4 MG/ML 1 ML VIAL IV ONE (08:16)
[2024-05-05] MEDS: ONDANSETRON 4 MG/2 ML VIAL IVP ONE (08:16)
[2024-05-05] MEDS: HEPARIN SODIUM,PORCINE 5,000 UNIT/ML 1 ML VIAL SQ PRN (08:17)
[2024-05-05] MEDS ORDERED: SUCCINYLCHOLINE CHLORIDE 200 MG/10 ML VIAL IV ONE (08:21)
[2024-05-05] MEDS ORDERED: NEOSTIGMINE 1 MG/ML 10 ML VIAL ONE (08:21)
[2024-05-05] MEDS ORDERED: PROPOFOL 10 MG/ML 20 ML VIAL IV ONE (08:21)
[2024-05-05] MEDS ORDERED: KETOROLAC 15 MG/ML 1 ML VIAL ONE (08:21)
[2024-05-05] MEDS ORDERED: fentaNYL (PF) 50 MCG/ML 2 ML AMP ONE (08:21)
[2024-05-05] MEDS ORDERED: MIDAZOLAM 2 MG/2 ML VIAL ONE (08:21)
[2024-05-05] MEDS ORDERED: LIDOCAINE 1% INJ 10MG/ML (20 ML MDV) ONE (08:21)
[2024-05-05] MEDS ORDERED: LIDOCAINE 4% LTA KIT (4 ML) TOPICAL ONE (08:21)
[2024-05-05] MEDS ORDERED: GLYCOPYRROLATE 0.2 MG/ML 2 ML VIAL ONE (08:21)
[2024-05-05] MEDS ORDERED: ROCURONIUM 10 MG/ML (5 ML VIAL) IV ONE (08:21)
[2024-05-05] MEDS ORDERED: HYDROmorphone (PF) 1 MG/ML ONE (08:21)
[2024-05-05] MEDS ORDERED: ePHEDrine 50 MG/ML 1 ML VIAL ONE (08:21)
[2024-05-05 08:28] LABS: Glucose,Whole Blood 98 mg/dL (70-110)
[2024-05-05] MEDS: LIDOCAINE 1%-EPI 1:100,000 20 ML VIAL SQ ONE (08:53)
[2024-05-05] MEDS: LACTATED RINGERS 1,000 ML IV ONE (09:59)
[2024-05-05] MEDS ORDERED: ACETAMINOPHEN TAB 325 MG TAB PO PRN (10:13)
[2024-05-05] MEDS ORDERED: ONDANSETRON 4 MG/2 ML VIAL IVP PRN (10:13)
[2024-05-05] MEDS ORDERED: HYDROmorphone 1 MG/ML 1 ML SYRINGE IVP PRN (10:13)
[2024-05-05] MEDS ORDERED: NALOXONE 0.4 MG/ML 1 ML VIAL IV PRN (10:13)
[2024-05-05] MEDS ORDERED: HYDROcodone/APAP 5-325MG 1 EACH TAB PO PRN (10:13)
[2024-05-05] MEDS: KETOROLAC 15 MG/ML 1 ML VIAL IVP SCH (14:34)
[2024-05-05] MEDS: HYDROmorphone 0.5 MG/0.5 ML SYRINGE IVP PRN (14:37)
[2024-05-05] MEDS: droPERidol 5 MG/2 ML VIAL IVP ONE (15:21)
[2024-05-05] MEDS: HYDROcodone/APAP 5-325MG 1 EACH TAB PO PRN (19:40)
[2024-05-06] MEDS: ENOXAPARIN 40 MG/0.4 ML SYRINGE SQ SCH (07:54)
[2024-05-06 08:46] VITALS: BP 120/86; PULSE 80; RESP 17; TEMP 97.7
[2024-05-06 08:46] LABS: ALT 43 U/L (8-44); AST 25 U/L (13-35); Albumin 3.5 g/dL (3.8-4.9); Albumin/Globulin Ratio 1.84 Ratio (1.60-3.17); Alkaline Phosphatase 89 U/L (41-126); BUN/Creat Ratio 22.33 Ratio (12.00-20.00); Blood Urea Nitrogen 20.1 mg/dL (9.0-27.0); Calcium 8.8 mg/dL (8.7-10.3); Carbon Dioxide 25.6 mmol/L (21.6-31.8); Chloride 102 mmol/L (96-109); Globulin 1.9 g/dL (1.6-3.3); Glucose 113 mg/dL (70-110); Potassium 4.5 mmol/L (3.5-5.5); Sodium 137 mmol/L (135-145); Total Bilirubin 0.3 mg/dL (0.3-1.2); Total Protein 5.4 g/dL (6.2-8.2)
[2024-05-06 09:15] LABS: Basophils # (A) 0.03 X 10*3/uL (0.00-0.10); Basophils % (A) 0.3 %; Eosinophils # (A) 0.05 X 10*3/uL (0.04-0.35); Eosinophils % (A) 0.5 %; HCT 39.7 % (37.2-46.3); HGB 12.7 g/dL (12.0-15.0); Lymphocytes # (A) 1.45 X 10*3/uL (0.90-5.00); Lymphocytes % (A) 13.5 %; MCH 29.7 pg (27.0-32.0); MCV 92.8 FL (80.0-97.0); Mean Platelet Volume 10.1 FL (9.5-12.2); Monocytes # (A) 0.72 X 10*3/uL (0.20-1.00); Monocytes % (A) 6.7 %; NRBC Per 100 WBC 0 X 10*3/uL (0.00-0.01); Neutrophils # (A) 8.35 X 10*3/uL (1.80-7.70); Neutrophils % (A) 77.7 %; Platelet Count 256 X 10*3/uL (140-440); RBC 4.28 X 10*6/uL (4.10-5.20); WBC 10.74 X 10*3/uL (4.50-10.00)
[2024-05-06] MEDS: LACTATED RINGERS 1,000 ML IV SCH (11:21)
--- NOTE | 2024-05-06 11:56 | P.DS ---
Providers Expected date of discharge: 05/06/24 Attending physician: Navid Coley Primary care physician: Hugo Preston Hospital Course: Discharge diagnosis 1. Hiatal hernia Hospital course This is a 63-year-old female with a known hiatal hernia. She is status post laparoscopic repair of hiatal hernia. Patient is tolerating liquid diet. Pain is controlled. She is having bowel movements and flatus. Denies any nausea or vomiting. Has been up and ambulating. She is afebrile. She is stable for discharge. Please refer to chart for any further details. Physician Inspector Repairer Sandstone note has been reviewed by physician. Signing provider agrees with the documented findings, assessment, and plan of care. Patient Condition at Discharge: Stable Plan - Discharge Summary Discharge Rx Participant: Yes New Discharge Prescriptions: New HYDROcodone/APAP 5-325MG [[place] 5-325] 1 tab PO Q6HR PRN 5 Days #20 tab PRN Reason: Pain Continue traZODone HCL [Desyrel] 100 mg PO HS Atorvastatin [Lipitor] 10 mg PO HS Baclofen [Lioresal] 10 mg PO BID SUMAtriptan succinate [Imitrex] 100 mg PO BID PRN PRN Reason: Migraine Headache Meclizine [Antivert] 25 mg PO BID Terazosin [Hytrin] 1 mg PO HS Anastrozole [Arimidex] 1 mg PO DAILY Varenicline [Chantix Continuing Pack] 1 mg PO DAILY Propranolol LA [Inderal LA] 80 mg PO HS Butalb/Acetaminophen/Caffeine [Fioricet 50-325-40] 1 tab PO BID PRN PRN Reason: Migraine Headache Ibuprofen [Motrin] 800 mg PO Q8HR PRN #30 tab PRN Reason: Pain Cyclobenzaprine [Flexeril] 10 mg PO BID Prochlorperazine [Compazine] 10 mg PO BID Levothyroxine Sodium [Synthroid] 112 mcg PO DAILY Alendronate Sodium [Fosamax] 70 mg PO WE Montelukast [Singulair] 10 mg PO HS Omeprazole 20 mg PO BID rOPINIRole HCL 4 mg PO HS Discontinued methylPREDNISolone Dose Pack [Medrol Dose Pack] 4 mg PO DIRECTED Discharge Medication List traZODone HCL [Desyrel] 100 mg PO HS 11/21/14 [History] Atorvastatin [Lipitor] 10 mg PO HS 06/11/18 [History] Baclofen [Lioresal] 10 mg PO BID 05/25/18 [History] SUMAtriptan succinate [Imitrex] 100 mg PO BID PRN 06/22/18 [History] Meclizine [Antivert] 25 mg PO BID 02/05/19 [History] Anastrozole [Arimidex] 1 mg PO DAILY 10/22/19 [History] Terazosin [Hytrin] 1 mg PO HS 10/22/19 [History] Levothyroxine Sodium [Synthroid] 112 mcg PO DAILY 10/09/21 [History] Varenicline [Chantix Continuing Pack] 1 mg PO DAILY 10/09/21 [History] Alendronate Sodium [Fosamax] 70 mg PO WE 08/19/22 [History] Propranolol LA [Inderal LA] 80 mg PO HS 08/19/22 [History] Butalb/Acetaminophen/Caffeine [Fioricet 50-325-40] 1 tab PO BID PRN 12/03/23 [History] Montelukast [Singulair] 10 mg PO HS 12/03/23 [History] Omeprazole 20 mg PO BID 02/19/24 [History] Cyclobenzaprine [Flexeril] 10 mg PO BID 04/26/24 [History] Ibuprofen [Motrin] 800 mg PO Q8HR PRN #30 tab 04/26/24 [Rx] Prochlorperazine [Compazine] 10 mg PO BID 04/26/24 [History] rOPINIRole HCL 4 mg PO HS 04/26/24 [History] HYDROcodone/APAP 5-325MG [C[place] 5-325] 1 tab PO Q6HR PRN 5 Days #20 tab 05/06/24 [Rx] Follow up Appointment(s)/Referral(s): Navid Coley MD [STAFF PHYSICIAN] - 2 Weeks Activity/Diet/Wound Care/Special Instructions: No driving while taking [place] No lifting over 10 pounds Shower daily. No soaking or tub baths for 2 weeks Very light activity until you are reevaluated at your follow up appointment with your surgeon Continue a full liquid diet over the next 2 weeks No straws or carbonated beverages Discharge Disposition: HOME SELF-CARE
--- NOTE | 2024-05-06 15:08 | P.CONS ---
History of Present Illness - Reason for Consult Consult date: 05/06/24 Medical management, hiatal hernia repair - History of Present Illness This is a pleasant 63-year-old female who was recently admitted under general surgery services status post hiatal hernia repair postop day 1 doing relatively well. Patient follows with Dr. Hugo Preston in the outpatient setting and reports she did not undergo presurgical clearance other than with surgery and has history of breast cancer, COPD, hyperlipidemia, hypertension, sleep apnea, occasionally smokes and occasionally uses THC. Patient does have incentive spirometer at the bedside and he has been encouraged to continue using including taking home and continuing to use outpatient. Patient reports she is passing gas and has had a bowel movement and voiding with no difficulties. Patient's abdomen surgical sites are glued and dry and intact with no surrounding redness or swelling and patient is with positive bowel sounds and not experiencing much discomfort on palpation. Patient reports to feeling well and would like to go home currently awaiting surgery for discharge. Patient is medically stable once cleared by surgery. REVIEW OF SYSTEMS: CONSTITUTIONAL: No fever, no malaise, no fatigue. HEENT: No recent visual problems or hearing problems. Denied any sore throat. CARDIOVASCULAR: No chest pain, orthopnea, PND, no palpitations, no syncope. PULMONARY: No shortness of breath, no cough, no hemoptysis. GASTROINTESTINAL: No diarrhea, no nausea, no vomiting, no abdominal pain. NEUROLOGICAL: No headaches, no weakness, no numbness. HEMATOLOGICAL: Denies any bleeding or petechiae. GENITOURINARY: Denies any burning micturition, frequency, or urgency. MUSCULOSKELETAL/RHEUMATOLOGICAL: Denies any joint pain, swelling, or any muscle pain. ENDOCRINE: Denies any polyuria or polydipsia. The rest of the 14-point review of systems is negative. PHYSICAL EXAMINATION: GENERAL: The patient is alert and oriented x3, not in any acute distress. Well developed, well nourished. HEENT: Pupils are round and equally reacting to light. EOMI. No scleral icterus. No conjunctival pallor. Normocephalic, atraumatic. No pharyngeal erythema. No thyromegaly. CARDIOVASCULAR: S1 and S2 present. No murmurs, rubs, or gallops. PULMONARY: Chest is clear to auscultation, no wheezing or crackles. ABDOMEN: Soft, obese nontender, nondistended, normoactive bowel sounds. No palpable organomegaly. Surgical sites with surgical glue that are dry and intact with no drainage or significant swelling noted. MUSCULOSKELETAL: No joint swelling or deformity. EXTREMITIES: No cyanosis, clubbing, or pedal edema. NEUROLOGICAL: Gross neurological examination did not reveal any focal deficits. SKIN: No rashes. Assessment: Status post hiatal hernia repair History of breast cancer History of COPD, not in exacerbation GERD Hyperlipidemia Hypertension History of sleep apnea History of migraines Obesity with a BMI of 31.9 History of depression/PTSD Occasional tobacco use Occasional marijuana use GI prophylaxis DVT prophylaxis Full code Plan: Patient was admitted under general surgery services status post hiatal hernia repair reports to doing relatively well Patient reports is passing gas and had a bowel movement and is voiding with no difficulties Encouraged incentive spirometer use at least 10 times every hour while awake Follow-up with primary care provider on discharge Continue taking home medications as prescribed Patient is medically stable once cleared by surgery Thank you kindly for this consultation. We will continue to follow during hospitalization. The impression and plan of care has been dictated by Yovana Howell, Nurse Practitioner as directed. Dr. Francesco MD I have performed a history and examination and MDM of this patient, discussed the same with the dictator, and agree with the dictator's assessment and plan as written ,documented as a scribe. Based on total visit time, I have performed more than 50% of the visit. Past Medical History Past Medical History: Cancer, COPD, GERD/Reflux, Hyperlipidemia, Hypertension, Sleep Apnea/CPAP/BIPAP, Thyroid Disorder Additional Past Medical History / Comment(s): Hx Covid 06-06-20. Migraines. Sleep apnea resolved with wt loss. Severe vertigo, low heart rate. Hx colon polyp. Chronic back pain. Aortic aneurysm. Hx left breast cancer with surgery 06/2019 - no radiation, had oral chemo. Internal hemorrhoids. Spinal stimulator- posterior lower left hip area - fell on this Lt. hip syncopal episode, 04/26/24- deep tissue injury - started steroids 04/29/24, hx. of "black out" falls at least 5-6 times total History of Any Multi-Drug Resistant Organisms: None Reported Past Surgical History: Bariatric Surgery, Bladder Surgery, Breast Surgery, Orthopedic Surgery Additional Past Surgical History / Comment(s): Loop recorder inserted and removed, eye surgery, left thumb surgery, Rt. ring finger surgery, EGD, colonoscopy, Double Mastectomy (06/2019), Panniculectomy, sleeve gastrectomy (04-20-18), nerve stimulator placed. Past Anesthesia/Blood Transfusion Reactions: No Reported Reaction, Motion Sickness Additional Past Anesthesia/Blood Transfusion Reaction / Comm: severe vertigo Type of Cardiac Device: Loop Device Placement Date:: 2019 Past Psychological History: Depression, PTSD Smoking Status: Current some day smoker Past Alcohol Use History: Occasional Additional Past Alcohol Use History / Comment(s): Smokes occasionally w/ a cocktail. Quit smoking regularly in 2018 (hx of 06/17 ppd). 1-2 drinks/month Past Drug Use History: Cocaine, Marijuana Additional Drug Use History / Comment(s): Current marijuana daily(smokes & edibles). Aware no use 24 hrs prior to procedure. Pt states she was addicted to crack cocaine, quit 1998. - Past Family History Mother Family Medical History: Cancer Additional Family Medical History / Comment(s): Mother at age 54 due to lung cancer. Patient has 2 aunts that had breast cancer. Patient does not have any children. Father Family Medical History: Coronary Artery Disease (CAD), Diabetes Mellitus Additional Family Medical History / Comment(s): Father is alive with history of CAD, DM and is on home O2. She does not know any further details. Sister(s) Family Medical History: No Reported History Additional Family Medical History / Comment(s): Patient has 2 sisters and one half-sister with no major medical problems. Brother(s) Family Medical History: Coronary Artery Disease (CAD) Additional Family Medical History / Comment(s): Patient has one brother with history of coronary artery disease status post CABG in heart failure. Medications and Allergies Home Medications Medication Instructions Recorded Confirmed Type traZODone HCL [Desyrel] 100 mg PO HS 11/21/14 05/03/24 History Atorvastatin [Lipitor] 10 mg PO HS 11/24/17 05/03/24 History Baclofen [Lioresal] 10 mg PO BID 05/25/18 05/03/24 History SUMAtriptan succinate [Imitrex] 100 mg PO BID PRN 06/22/18 05/03/24 History Meclizine [Antivert] 25 mg PO BID 02/05/19 05/03/24 History Anastrozole [Arimidex] 1 mg PO DAILY 10/22/19 05/03/24 History Terazosin [Hytrin] 1 mg PO HS 10/22/19 05/03/24 History Levothyroxine Sodium [Synthroid] 112 mcg PO DAILY 10/09/21 05/03/24 History Varenicline [Chantix Continuing 1 mg PO DAILY 10/09/21 05/03/24 History Pack] Alendronate Sodium [Fosamax] 70 mg PO WE 08/19/22 05/03/24 History Propranolol LA [Inderal LA] 80 mg PO HS 08/19/22 05/03/24 History Butalb/Acetaminophen/Caffeine 1 tab PO BID PRN 12/03/23 05/03/24 History [Fioricet 50-325-40] Montelukast [Singulair] 10 mg PO HS 12/03/23 05/03/24 History Omeprazole 20 mg PO BID 02/19/24 05/03/24 History Cyclobenzaprine [Flexeril] 10 mg PO BID 04/26/24 05/03/24 History Ibuprofen [Motrin] 800 mg PO Q8HR PRN #30 tab 04/26/24 05/03/24 Rx Prochlorperazine [Compazine] 10 mg PO BID 04/26/24 05/03/24 History rOPINIRole HCL 4 mg PO HS 04/26/24 05/03/24 History HYDROcodone/APAP 5-325MG [[place] 1 tab PO Q6HR PRN 5 Days #20 tab 05/06/24 Rx 5-325] Allergies Allergy/AdvReac Type Severity Reaction Status Date / Time latex Allergy Rash/Hives Verified 05/03/24 11:31 nickel Allergy Rash/Hives Verified 05/03/24 11:31 paper tape Allergy Rash/Hives Uncoded 05/03/24 11:31 Physical Exam Vitals: Vital Signs Temp Pulse Pulse Resp BP Pulse Ox 05/06/24 07:11 97.7 F 80 17 120/86 92 L 05/06/24 01:13 97.5 F L 60 14 124/89 93 L 05/05/24 15:09 97.3 F L 64 17 120/83 05/05/24 14:00 65 16 132/79 97 05/05/24 13:00 53 L 16 126/72 100 05/05/24 12:30 59 L 16 142/81 98 05/05/24 12:00 55 L 18 125/91 97 05/05/24 11:45 59 L 18 145/85 98 05/05/24 11:30 59 L 17 113/72 97 05/05/24 11:15 61 16 125/79 100 05/05/24 11:00 62 16 117/75 100 05/05/24 10:45 63 16 111/69 100 05/05/24 10:30 66 16 111/78 100 05/05/24 10:15 70 16 115/74 100 05/05/24 10:01 97.5 F L 67 12 118/62 100 Intake and Output 05/05/24 05/06/24 05/06/24 22:59 06:59 14:59 Other: # Voids 1 1 Results CBC & Chem 7: 05/06/24 05:47 05/06/24 05:47 Labs: Abnormal Lab Results - Last 24 Hours (Table) 05/06/24 05/06/24 Range/Units 05:47 05:47 WBC 10.74 H (4.50-10.00) X 10*3/uL Immature Gran # 0.14 H (0.00-0.04) X 10*3/uL Neutrophils # 8.35 H (1.80-7.70) X 10*3/uL BUN/Creatinine Ratio 22.33 H (12.00-20.00) Ratio Glucose 113 H (70-110) mg/dL Total Protein 5.4 L (6.2-8.2) g/dL Albumin 3.5 L (3.8-4.9) g/dL
--- NOTE | 2024-05-12 08:18 | P.OP ---
Date of Procedure: 04/26/24 Preoperative Diagnosis: Recurrent hiatal hernia Postoperative Diagnosis: Adhesions Hiatal hernia Procedure(s) Performed: Laparoscopic lysis of adhesions extensive Laparoscopic repair of hiatal hernia Anesthesia: NAIN Surgeon: Navid Coley Estimated Blood Loss (ml): 5 Pathology: none sent Condition: stable Disposition: PACU Description of Procedure: The patient was placed on the operating table in the supine position. The patient received general anesthesia. And was placed in dorsal lithotomy position. The patient was prepped and draped in the usual sterile fashion. The skin incision sites were anesthetized with 1% local Xylocaine. The skin was incised in the left periumbilical area and then using a blade less 5 mm trocar under direct visualization panel cavity was entered. After adequate insufflation the laparoscope was then placed into the peritoneal cavity. Next a 5 mm trochars placed in the right epigastric position. Another 5 millimeter trocar the right lateral position. Another 5 millimeter trocar in the left lateral position a 5 mm trocar is placed in the left epigastric position. And then the initial 5 mm trocar was exchanged for a 10 mm trocar. There were extensive adhesions noted between the liver and abdominal wall and the liver and stomach. Approximately 25 minutes of operative time us used to lyse adhesions The left lateral lobe liver was retracted. There were adhesions at the hiatus. These were also lysed with the harmonic's scissors. The hernia was seen. The crural defect was then dissected using the Harmonic scissors device. A 360 crural dissection was performed the esophagus stomach was reduced back into the peritoneal Cavity. The crural defect was then closed using 2-0 Ethibond suture. N The abdomen was irrigated there is no bleeding seen. The trochars were then withdrawn and then skin incision sites were closed using 3-0 Monocryl suture Steri-Strips are applied. Patient thought procedure well and sent to recovery room in stable condition.
== END 2024-05-06 14:25 | disposition home or self-care (01) ==
LOC: OR 07:04 → 4SSUR 14:05 → OR 05-06 14:25
PROVIDERS: ATTEND Surgery
DX: K44.9 Diaphragmatic hernia without obstruction or gangrene (principal); I10 Essential (primary) hypertension; E78.5 Hyperlipidemia, unspecified; I71.20 Thoracic aortic aneurysm, without rupture, unspecified; G47.33 Obstructive sleep apnea (adult) (pediatric); J44.9 Chronic obstructive pulmonary disease, unspecified; F17.200 Nicotine dependence, unspecified, uncomplicated; K21.9 Gastro-esophageal reflux disease without esophagitis; M54.50 Low back pain, unspecified; G43.909 Migraine, unspecified, not intractable, without status migrainosus; Z90.3 Acquired absence of stomach [part of]; Z90.89 Acquired absence of other organs; Z90.13 Acquired absence of bilateral breasts and nipples; Z91.040 Latex allergy status; Z79.899 Other long term (current) drug therapy; Z79.890 Hormone replacement therapy
CPT/HCPCS: 80053; 85025; 43281; J2250; J0330; J1644; J1100; J2710; J0690; J2405; J2003; J1650; J3010; J1171 ×2; J1885 ×2; J2704; J1596

== ENCOUNTER 2024-06-16 01:34 | Inpatient (IN) | payer MEDICARE ==
[2024-06-16] MEDS: ALBUTEROL NEBULIZED 2.5 MG/3 ML INHALATION STA (02:24)
[2024-06-16] MEDS: IPRATROPIUM 0.5 MG/2.5 ML NEBU INHALATION STA (02:24)
[2024-06-16] MEDS: SODIUM CHLORIDE 0.9% 1,000 ML IV STA (02:33)
[2024-06-16] MEDS: methylPREDNISolone SOD SUCCI 125 MG/2 ML VIAL IV STA (02:35)
[2024-06-16] MEDS: ONDANSETRON 4 MG/2 ML VIAL IVP STA (02:37)
--- NOTE | 2024-06-16 02:37 | ED ---
General Adult HPI - General Chief complaint: Shortness of Breath Stated complaint: SOB Time Seen by Provider: 06/16/24 01:43 Source: patient, family, RN notes reviewed, old records reviewed Mode of arrival: wheelchair Limitations: no limitations - History of Present Illness Initial comments: 63-year-old female presenting with 1 week of productive cough, dyspnea, nausea and headache. Patient reports subjective fever and chills. No central chest pain. History of COPD. No abdominal pain. No lower extremity pain or swelling. - Related Data Home Medications Medication Instructions Recorded Confirmed traZODone HCL [Desyrel] 100 mg PO HS 11/21/14 05/03/24 Atorvastatin [Lipitor] 10 mg PO HS 11/24/17 05/03/24 Baclofen [Lioresal] 10 mg PO BID 05/25/18 05/03/24 SUMAtriptan succinate [Imitrex] 100 mg PO BID PRN 06/22/18 05/03/24 Meclizine [Antivert] 25 mg PO BID 02/05/19 05/03/24 Anastrozole [Arimidex] 1 mg PO DAILY 10/22/19 05/03/24 Terazosin [Hytrin] 1 mg PO HS 10/22/19 05/03/24 Levothyroxine Sodium [Synthroid] 112 mcg PO DAILY 10/09/21 05/03/24 Varenicline [Chantix Continuing 1 mg PO DAILY 10/09/21 05/03/24 Pack] Alendronate Sodium [Fosamax] 70 mg PO WE 08/19/22 05/03/24 Propranolol LA [Inderal LA] 80 mg PO HS 08/19/22 05/03/24 Butalb/Acetaminophen/Caffeine 1 tab PO BID PRN 12/03/23 05/03/24 [Fioricet 50-325-40] Montelukast [Singulair] 10 mg PO HS 12/03/23 05/03/24 Omeprazole 20 mg PO BID 02/19/24 05/03/24 Cyclobenzaprine [Flexeril] 10 mg PO BID 04/26/24 05/03/24 Prochlorperazine [Compazine] 10 mg PO BID 04/26/24 05/03/24 rOPINIRole HCL 4 mg PO HS 04/26/24 05/03/24 Previous Rx's Medication Instructions Recorded Ibuprofen [Motrin] 800 mg PO Q8HR PRN #30 tab 04/26/24 HYDROcodone/APAP 5-325MG [[place] 1 tab PO Q6HR PRN 5 Days #20 tab 05/06/24 5-325] Allergies Allergy/AdvReac Type Severity Reaction Status Date / Time latex Allergy Rash/Hives Verified 06/16/24 01:39 nickel Allergy Rash/Hives Verified 06/16/24 01:39 paper tape Allergy Rash/Hives Uncoded 06/16/24 01:39 Review of Systems ROS Statement: Those systems with pertinent positive or pertinent negative responses have been documented in the HPI. ROS Other: All systems not noted in ROS Statement are negative. Past Medical History Past Medical History: Cancer, COPD, GERD/Reflux, Hyperlipidemia, Hypertension, Sleep Apnea/CPAP/BIPAP, Thyroid Disorder Additional Past Medical History / Comment(s): Hx Covid 06-06-20. Migraines. Sleep apnea resolved with wt loss. Severe vertigo, low heart rate. Hx colon polyp. Chronic back pain. Aortic aneurysm. Hx left breast cancer with surgery 06/2019 - no radiation, had oral chemo. Internal hemorrhoids. Spinal stimulator- posterior lower left hip area - fell on this Lt. hip syncopal episode, 04/26/24- deep tissue injury - started steroids 04/29/24, hx. of "black out" falls at least 5-6 times total History of Any Multi-Drug Resistant Organisms: None Reported Past Surgical History: Bariatric Surgery, Bladder Surgery, Breast Surgery, Orthopedic Surgery Additional Past Surgical History / Comment(s): Loop recorder inserted and removed, eye surgery, left thumb surgery, Rt. ring finger surgery, EGD, colonoscopy, Double Mastectomy (06/2019), Panniculectomy, sleeve gastrectomy (04-20-18), nerve stimulator placed. Past Anesthesia/Blood Transfusion Reactions: No Reported Reaction, Motion Sickness Additional Past Anesthesia/Blood Transfusion Reaction / Comment(s): severe vertigo Type of Cardiac Device: Loop Device Placement Date:: 2019 Past Psychological History: Depression, PTSD Smoking Status: Current some day smoker Past Alcohol Use History: Occasional Past Drug Use History: Cocaine, Marijuana - Past Family History Mother Family Medical History: Cancer Additional Family Medical History / Comment(s): Mother at age 54 due to lung cancer. Patient has 2 aunts that had breast cancer. Patient does not have any children. Father Family Medical History: Coronary Artery Disease (CAD), Diabetes Mellitus Additional Family Medical History / Comment(s): Father is alive with history of CAD, DM and is on home O2. She does not know any further details. Sister(s) Family Medical History: No Reported History Additional Family Medical History / Comment(s): Patient has 2 sisters and one half-sister with no major medical problems. Brother(s) Family Medical History: Coronary Artery Disease (CAD) Additional Family Medical History / Comment(s): Patient has one brother with history of coronary artery disease status post CABG in heart failure. General Exam Limitations: no limitations General appearance: alert, in distress Head exam: Present: atraumatic, normocephalic Eye exam: Present: normal appearance, PERRL ENT exam: Present: normal exam Neck exam: Present: normal inspection. Absent: tenderness, meningismus Respiratory exam: Present: respiratory distress, wheezes, rhonchi, decreased breath sounds Cardiovascular Exam: Present: normal rhythm, tachycardia GI/Abdominal exam: Present: soft. Absent: distended, tenderness, guarding Extremities exam: Present: normal inspection, normal capillary refill. Absent: calf tenderness Neurological exam: Present: alert, oriented X3 Psychiatric exam: Present: normal affect, normal mood Skin exam: Present: warm, dry, intact Course Vital Signs 06/16/24 06/16/24 06/16/24 01:35 01:47 02:14 Temperature 98.0 F Pulse Rate 123 H 120 H Respiratory 24 Rate Blood Pressure 136/90 O2 Sat by Pulse 87 L Oximetry 06/16/24 02:42 Temperature Pulse Rate 113 H Respiratory Rate Blood Pressure O2 Sat by Pulse Oximetry Medical Decision Making - Medical Decision Making Was pt. sent in by a medical professional or institution (, PA, BANK NOTE DESIGNER, urgent care, hospital, or custodial...) When possible be specific @ -No Did you speak to anyone other than the patient for history (EMS, parent, family, police, friend...)? What history was obtained from this source @ -No Did you review nursing and triage notes (agree or disagree)? Why? @ -I reviewed and agree with nursing and triage notes Were old charts reviewed (outside hosp., previous admission, EMS record, old EKG, old radiological studies, urgent care reports/EKG's, custodial records)? Report findings @ -No old charts were reviewed Differential Dyspnea: Coronary syndrome, arrhythmia, tamponade, asthma, COPD, pulmonary embolism, pneumonia, pneumothorax, pulmonary effusion, anaphylaxis, diabetic ketoacidosis, flailed chest, pulmonary contusion, diaphragmatic rupture, anemia, neuromuscular, this is not meant to be an all-inclusive list. EKG interpreted by me (3pts min.). @Sinus tachycardia incomplete right bundle branch block, respiratory artifact limiting assessment, no ST segment elevation, ventricular rate of 118, WA interval 150, QRS duration 93, QTc 396 X-rays interpreted by me (1pt min.). @Patchy bilateral infiltrate on chest x-ray CT interpreted by me (1pt min.). @ -None done U/S interpreted by me (1pt. min.). @ -None done What testing was considered but not performed or refused? (CT, X-rays, U/S, labs)? Why? @ -None What meds were considered but not given or refused? Why? @ -None Did you discuss the management of the patient with other professionals (professionals i.e. , PA, BANK NOTE DESIGNER, lab, RT, psych nurse, social sciences professor, school psychology professor, teacher, chief security and safety officer, pillowcase cleaner)? Give summary @ -EMH Was smoking cessation discussed for >3mins.? @ -No Was critical care preformed (if so, how long)? @ -Yes, 35 minutes Were there social determinants of health that impacted care today? How? (Homel essness, low income, unemployed, alcoholism, drug addiction, transportation, low edu. Level, literacy, decrease access to med. care, [facility], rehab)? @ -No Was there de-escalation of care discussed even if they declined (Discuss DNR or withdrawal of care, Hospice)? DNR status @ -No What co-morbidities impacted this encounter? (DM, HTN, Smoking, COPD, CAD, Cancer, CVA, ARF, Chemo, Hep., AIDS, mental health diagnosis, sleep apnea, morbid obesity)? @ -COPD Was patient admitted / discharged? Hospital course, mention meds given and route, prescriptions, significant lab abnormalities, going to OR and other pertinent info. @ -63-year-old female with productive cough and dyspnea over the past 1 week, history of COPD. Patient is tachycardic and hypoxic upon arrival. Workup is initiated, chest x-ray is concerning for bilateral pneumonia. Patient has a leukocytosis of 13. Negative viral swab. Normal lactic acid. Patient is given IV fluids, IV steroids, started on IV antibiotics in the emergency department. Admitted for COPD with bilateral pneumonia. Undiagnosed new problem with uncertain prognosis? @ -No Drug Therapy requiring intensive monitoring for toxicity (Heparin, Nitro, Insuli n, Cardizem)? @ -No Were any procedures done? @ -No Diagnosis/symptom? @ -COPD exacerbation and bilateral pneumonia. Acute, or Chronic, or Acute on Chronic? @ -[Acute Uncomplicated (without systemic symptoms) or Complicated (systemic symptoms)? @ -Default Side effects of treatment? @ -No Exacerbation, Progression, or Severe Exacerbation? @ -No Poses a threat to life or bodily function? How? (Chest pain, [place], [place], pneumonia, PE, COPD, DKA, ARF, appy, cholecystitis, CVA, Diverticulitis, Homicidal, Suicidal, threat to staff... and all critical care pts) @ -[Yes, COPD, pneumonia, sepsis, respiratory failure - Lab Data Result diagrams: 06/16/24 02:27 06/16/24 02:27 Lab Results 06/16/24 06/16/24 06/16/24 Range/Units 02:27 02:27 02:27 WBC 13.7 H (3.8-10.6) k/uL RBC 5.51 H (3.80-5.40) m/uL Hgb 16.5 H (11.4-16.0) gm/dL Hct 52.1 H (34.0-46.0) % MCV 94.5 (80.0-100.0) fL MCH 29.8 (25.0-35.0) pg MCHC 31.6 (31.0-37.0) g/dL RDW 14.3 (11.5-15.5) % Plt Count 287 (150-450) k/uL MPV 9.2 Neutrophils % 82 % Lymphocytes % 9 % Monocytes % 7 % Eosinophils % 0 % Basophils % 1 % Neutrophils # 11.2 H (1.3-7.7) k/uL Lymphocytes # 1.2 (1.0-4.8) k/uL Monocytes # 0.9 (0-1.0) k/uL Eosinophils # 0.1 (0-0.7) k/uL Basophils # 0.1 (0-0.2) k/uL Hypochromasia Slight PT 11.9 (10.0-12.5) sec INR 1.1 (<1.2) APTT 23.9 (22.0-30.0) sec Sodium 141 (137-145) mmol/L Potassium 4.2 (3.5-5.1) mmol/L Chloride 101 (98-107) mmol/L Carbon Dioxide 25 (22-30) mmol/L Anion Gap 15 mmol/L BUN 22 H (7-17) mg/dL Creatinine 1.17 H (0.52-1.04) mg/dL Est GFR (CKD-EPI)AfAm 57 (>60 ml/min/1.73 sqM) Est GFR (CKD-EPI)NonAf 50 (>60 ml/min/1.73 sqM) Glucose 159 H (74-99) mg/dL Plasma Lactic Acid [place] (0.7-2.0) mmol/L Calcium 9.5 (8.4-10.2) mg/dL Total Bilirubin 1.3 (0.2-1.3) mg/dL AST 16 (14-36) U/L ALT 11 (4-34) U/L Alkaline Phosphatase 177 H (38-126) U/L Total Protein 7.6 (6.3-8.2) g/dL Albumin 4.0 (3.5-5.0) g/dL Influenza Type A (PCR) (Not Detectd) Influenza Type B (PCR) (Not Detectd) RSV (PCR) (Not Detectd) SARS-CoV-2 (PCR) (Not Detectd) 06/16/24 06/16/24 Range/Units 02:27 02:56 WBC (3.8-10.6) k/uL RBC (3.80-5.40) m/uL Hgb (11.4-16.0) gm/dL Hct (34.0-46.0) % MCV (80.0-100.0) fL MCH (25.0-35.0) pg MCHC (31.0-37.0) g/dL RDW (11.5-15.5) % Plt Count (150-450) k/uL MPV Neutrophils % % Lymphocytes % % Monocytes % % Eosinophils % % Basophils % % Neutrophils # (1.3-7.7) k/uL Lymphocytes # (1.0-4.8) k/uL Monocytes # (0-1.0) k/uL Eosinophils # (0-0.7) k/uL Basophils # (0-0.2) k/uL Hypochromasia PT (10.0-12.5) sec INR (<1.2) APTT (22.0-30.0) sec Sodium (137-145) mmol/L Potassium (3.5-5.1) mmol/L Chloride (98-107) mmol/L Carbon Dioxide (22-30) mmol/L Anion Gap mmol/L BUN (7-17) mg/dL Creatinine (0.52-1.04) mg/dL Est GFR (CKD-EPI)AfAm (>60 ml/min/1.73 sqM) Est GFR (CKD-EPI)NonAf (>60 ml/min/1.73 sqM) Glucose (74-99) mg/dL Plasma Lactic Acid [place] 1.9 (0.7-2.0) mmol/L Calcium (8.4-10.2) mg/dL Total Bilirubin (0.2-1.3) mg/dL AST (14-36) U/L ALT (4-34) U/L Alkaline Phosphatase (38-126) U/L Total Protein (6.3-8.2) g/dL Albumin (3.5-5.0) g/dL Influenza Type A (PCR) Not Detected (Not Detectd) Influenza Type B (PCR) Not Detected (Not Detectd) RSV (PCR) Not Detected (Not Detectd) SARS-CoV-2 (PCR) Not Detected (Not Detectd) Critical Care Time Critical Care Time: Yes Total Critical Care Time: 35 Disposition Clinical Impression: COPD exacerbation, Community acquired pneumonia Disposition: ADMITTED IP TO THIS [facility] Condition: Stable Is patient prescribed a controlled substance at d/c from ED?: No Referrals: Hugo Preston MD [Primary Care Provider] - 1-2 days Time of Disposition: 04:58
[2024-06-16] MEDS: HYDROmorphone 0.5 MG/0.5 ML SYRINGE IVP STA ×2 (02:38→04:13)
[2024-06-16] MEDS: MAGNESIUM SULFATE-D5W PMX 1 GM in DEXTROSE/WATER 1 100ML.BAG IVPB STA (02:40)
[2024-06-16 02:56] LABS: Basophils # (A) 0.1 k/uL (0-0.2); Basophils % (A) 1 %; Eosinophils # (A) 0.1 k/uL (0-0.7); Eosinophils % (A) 0 %; HCT 52.1 % (34.0-46.0); HGB 16.5 gm/dL (11.4-16.0); Hypochromasia Slight; Lymphocytes # (A) 1.2 k/uL (1.0-4.8); Lymphocytes % (A) 9 %; MCH 29.8 pg (25.0-35.0); MCHC 31.6 g/dL (31.0-37.0); MCV 94.5 fL (80.0-100.0); Mean Platelet Volume 9.2; Monocytes # (A) 0.9 k/uL (0-1.0); Monocytes % (A) 7 %; Neutrophils # (A) 11.2 k/uL (1.3-7.7); Neutrophils % (A) 82 %; Platelet Count 287 k/uL (150-450); RBC 5.51 m/uL (3.80-5.40); RDW 14.3 % (11.5-15.5); WBC 13.7 k/uL (3.8-10.6)
[2024-06-16 03:33] LABS: INR 1.1 (<1.2); Partial Thromboplastin Time 23.9 sec (22.0-30.0); Prothrombin Time 11.9 sec (10.0-12.5)
[2024-06-16 03:37] LABS: ALT 11 U/L (4-34); AST 16 U/L (14-36); African American GFR (CKD) 57 (>60 ml/min/1.73 sqM); Alkaline Phosphatase 177 U/L (38-126); Anion Gap 15 mmol/L; Blood Urea Nitrogen 22 mg/dL (7-17); Calcium 9.5 mg/dL (8.4-10.2); Carbon Dioxide 25 mmol/L (22-30); Chloride 101 mmol/L (98-107); Glucose 159 mg/dL (74-99); Non-African American GFR(CKD) 50 (>60 ml/min/1.73 sqM); Potassium 4.2 mmol/L (3.5-5.1); Sodium 141 mmol/L (137-145); Total Bilirubin 1.3 mg/dL (0.2-1.3); Total Protein 7.6 g/dL (6.3-8.2)
[2024-06-16] MEDS: KETOROLAC 15 MG/ML 1 ML VIAL IVP STA (04:11)
[2024-06-16] MEDS ORDERED: NALOXONE 0.4 MG/ML 1 ML VIAL IVP PRN (04:46)
--- NOTE | 2024-06-16 04:55 | XR ---
ADDENDUM - Added by Haris Alexander M.D. on 06/16/2024 4:54 AM (-05:00) IMPRESSION: Bilateral pneumonia. EXAM: XR Chest, 2 Views CLINICAL HISTORY: difficulty breathing TECHNIQUE: Frontal and lateral views of the chest. COMPARISON: 04/26/24 FINDINGS: Lungs: Small amount of patchy nodular opacities throughout both lungs, new. Pleural space: Unremarkable. Mediastinum: Unremarkable. Normal mediastinal contour. Bones/joints: No acute findings. Tubes, lines and devices: Intraspinal neurostimulator is again noted. IMPRESSION: Small amount of patchy nodular opacities throughout both lungs, new. Bilateral pneumonia.
[2024-06-16] MEDS: SODIUM CHLORIDE 0.9% 1,000 ML IV SCH (05:43)
[2024-06-16] MEDS: AZITHROMYCIN 500 MG in SODIUM CHLORIDE 0.9% 250 ML IVPB STA (06:26)
[2024-06-16] MEDS: methylPREDNISolone SOD SUCCI 125 MG/2 ML VIAL IV SCH (06:26)
[2024-06-16] MEDS: HYDROmorphone 0.5 MG/0.5 ML SYRINGE IVP PRN (06:59)
[2024-06-16] MEDS: IPRATROPIUM-ALBUTEROL 3 ML NEB INHALATION SCH (12:05)
[2024-06-16] MEDS ORDERED: guaiFENesin 600 MG TABLET.ER PO PRN (14:37)
--- NOTE | 2024-06-16 14:39 | P.HPIM ---
History of Present Illness H&P Date: 06/16/24 History of present illness: 63-year-old female with past medical history significant for COPD not on home oxygen, history of hypertension, hyperlipidemia, obstructive sleep apnea, hypothyroidism, aortic aneurysm, history of left breast cancer with surgery in 2019, history of spinal stimulator, GERD who presented to ER with a worsening shortness breath cough nausea and headache. Patient reported that she was having shortness of breath for the last 2 weeks which started to get progressively worse for the last few days, patient also reported productive cough, nausea and headache also reported fever and chills. Patient reported history of COPD, does not use home oxygen. Patient denied any sore throat, runny nose, chest pain, palpitations, vomiting diarrhea constipation abdominal pain dysuria urgency frequency weakness or numbness of extremities. In the ED patient was afebrile, heart rate 92, respiratory rate 106/62, saturating 94% on room air. WBCs 13.7, hemoglobin 16.5, platelet 287. BMP was unremarkable except BUN 22, creatinine 1.17. LFTs unremarkable except alkaline phosphatase 177. Influenza RSV and COVID was negative. Chest x-ray showed small amount of patchy nodular opacities throughout the both lungs, new concerning for bilateral pneumonia. EKG showed sinus tachycardia, incomplete right bundle branch block, QTc 396. Assessment and plan: Acute hypoxic respiratory failure: Acute COPD exacerbation Bilateral pneumonia: Presented with worsening shortness of breath, productive cough, headache, nausea, fever and chills. Chest x-ray concerning for bilateral pneumonia Leukocytosis on presentation, saturating 87% on room air, required 2 L supplemental oxygen Continue inhalers/bronchodilator protocol, Solu-Medrol, incentive spirometry Rocephin and azithromycin Pulmonary consult Hypertension: Hyperlipidemia: History of left breast cancer: History of migraine: DVT prophylaxis Subcutaneous Lovenox Monitor vital signs and labs Labs and medication were reviewed. Continue same treatment. Further recommendations as per clinical course of the patient PHYSICAL EXAMINATION: GENERAL: The patient is A&O x3, NAD HEENT: EOMI, Sclerae anicteric, Moist Mucous membranes Neck: Supple, Non tender, No JVD PULMONARY: Decreased breath souds B/L, No wheezing, No crackles. CARDIOVASCULAR: S1, S2 present. No murmurs, rubs, or gallops. ABDOMEN: Soft, nontender, nondistended, normoactive bowel sounds. No guarding or rebound tenderness. MUSCULOSKELETAL: No edema, No cyanosis. No clubbing. Normal ROM. Intact peripheral pulses. NEUROLOGICAL: CN 2-12 grossly intact. No FND REVIEW OF SYSTEMS: CONSTITUTIONAL: No fever, no malaise, no fatigue. HEENT: No recent visual problems or hearing problems. Denied any sore throat. CARDIOVASCULAR: No chest pain, orthopnea, PND, no palpitations, no syncope. PULMONARY: Complains of shortness breath, cough, congestion. GASTROINTESTINAL: No diarrhea, no nausea, no vomiting, no abdominal pain. NEUROLOGICAL: c/o headache. HEMATOLOGICAL: Denies any bleeding or petechiae. GENITOURINARY: Denies any burning micturition, frequency, or urgency. MUSCULOSKELETAL/RHEUMATOLOGICAL: Denies any joint pain, swelling, or any muscle pain. ENDOCRINE: Denies any polyuria or polydipsia. The rest of the 14-point review of systems is negative. Dictation was produced using [employer] dictation software. please excuse any grammatical, word or spelling errors. Past Medical History Past Medical History: Cancer, COPD, GERD/Reflux, Hyperlipidemia, Hypertension, Sleep Apnea/CPAP/BIPAP, Thyroid Disorder Additional Past Medical History / Comment(s): Hx Covid 06-06-20. Migraines. Sleep apnea resolved with wt loss. Severe vertigo, low heart rate. Hx colon polyp. Chronic back pain. Aortic aneurysm. Hx left breast cancer with surgery 06/2019 - no radiation, had oral chemo. Internal hemorrhoids. Spinal stimulator- posterior lower left hip area - fell on this Lt. hip syncopal episode, 04/26/24- deep tissue injury - started steroids 04/29/24, hx. of "black out" falls at [facility] 5-6 times total History of Any Multi-Drug Resistant Organisms: None Reported Past Surgical History: Bariatric Surgery, Bladder Surgery, Breast Surgery, Orthopedic Surgery Additional Past Surgical History / Comment(s): Loop recorder inserted and removed, eye surgery, left thumb surgery, Rt. ring finger surgery, EGD, col onoscopy, Double Mastectomy (06/2019), Panniculectomy, sleeve gastrectomy (04-20-18), nerve stimulator placed. Past Anesthesia/Blood Transfusion Reactions: No Reported Reaction, Motion Sickness Additional Past Anesthesia/Blood Transfusion Reaction / Comment(s): severe vertigo Type of Cardiac Device: Loop Device Placement Date:: 2019 Past Psychological History: Depression, PTSD Smoking Status: Current some day smoker Past Alcohol Use History: Occasional Past Drug Use History: Cocaine, Marijuana - Past Family History Mother Family Medical History: Cancer Additional Family Medical History / Comment(s): Mother at age 54 due to lung cancer. Patient has 2 aunts that had breast cancer. Patient does not have any children. Father Family Medical History: Coronary Artery Disease (CAD), Diabetes Mellitus Additional Family Medical History / Comment(s): Father is alive with history of CAD, DM and is on home O2. She does not know any further details. Sister(s) Family Medical History: No Reported History Additional Family Medical History / Comment(s): Patient has 2 sisters and one half-sister with no major medical problems. Brother(s) Family Medical History: Coronary Artery Disease (CAD) Additional Family Medical History / Comment(s): Patient has one brother with history of coronary artery disease status post CABG in heart failure. Medications and Allergies Home Medications Medication Instructions Recorded Confirmed Type traZODone HCL [Desyrel] 100 mg PO HS 11/21/14 06/16/24 History Atorvastatin [Lipitor] 10 mg PO HS 11/24/17 06/16/24 History Baclofen [Lioresal] 10 mg PO BID 05/25/18 06/16/24 History SUMAtriptan succinate [Imitrex] 100 mg PO BID PRN 06/22/18 06/16/24 History Meclizine [Antivert] 25 mg PO BID 02/05/19 06/16/24 History Anastrozole [Arimidex] 1 mg PO HS 10/22/19 06/16/24 History Terazosin [Hytrin] 1 mg PO DAILY 10/22/19 06/16/24 History Levothyroxine Sodium [Synthroid] 112 mcg PO DAILY 10/09/21 06/16/24 History Varenicline [Chantix Continuing 1 mg PO DAILY 10/09/21 06/16/24 History Pack] Alendronate Sodium [Fosamax] 70 mg PO WE 08/19/22 06/16/24 History Propranolol LA [Inderal LA] 80 mg PO DAILY 08/19/22 06/16/24 History Butalb/Acetaminophen/Caffeine 1 tab PO BID PRN 12/03/23 06/16/24 History [Fioricet 50-325-40] Montelukast [Singulair] 10 mg PO HS 12/03/23 06/16/24 History Omeprazole 20 mg PO BID 02/19/24 06/16/24 History Cyclobenzaprine [Flexeril] 10 mg PO BID 04/26/24 06/16/24 History Ibuprofen [Motrin] 800 mg PO Q8HR PRN #30 tab 04/26/24 06/16/24 Rx Prochlorperazine [Compazine] 10 mg PO Q4H PRN 04/26/24 06/16/24 History rOPINIRole HCL 4 mg PO HS 04/26/24 06/16/24 History HYDROcodone/APAP 5-325MG [[place] 1 tab PO Q6HR PRN 5 Days #20 tab 05/06/24 06/16/24 Rx 5-325] Allergies Allergy/AdvReac Type Severity Reaction Status Date / Time latex Allergy Rash/Hives Verified 06/16/24 10:10 nickel Allergy Rash/Hives Verified 06/16/24 10:10 paper tape Allergy Rash/Hives Uncoded 06/16/24 01:39 Physical Exam Vitals: Vital Signs Temp Pulse Resp BP Pulse Ox 06/16/24 12:15 92 06/16/24 12:06 92 06/16/24 08:59 92 20 106/62 92 L 06/16/24 07:02 97.9 F 93 18 121/80 94 L 06/16/24 04:00 96 20 124/44 94 L 06/16/24 02:42 113 H 06/16/24 02:14 120 H 06/16/24 01:50 24 06/16/24 01:47 98.0 F 06/16/24 01:35 123 H 24 136/90 87 L Intake and Output 06/15/24 06/16/24 06/16/24 22:59 06:59 14:59 Other: Weight 90.718 kg Results CBC & Chem 7: 06/16/24 02:27 06/16/24 02:27 Labs: Abnormal Lab Results - Last 24 Hours (Table) 06/16/24 06/16/24 Range/Units 02:27 02:27 WBC 13.7 H (3.8-10.6) k/uL RBC 5.51 H (3.80-5.40) m/uL Hgb 16.5 H (11.4-16.0) gm/dL Hct 52.1 H (34.0-46.0) % Neutrophils # 11.2 H (1.3-7.7) k/uL BUN 22 H (7-17) mg/dL Creatinine 1.17 H (0.52-1.04) mg/dL Glucose 159 H (74-99) mg/dL Alkaline Phosphatase 177 H (38-126) U/L
[2024-06-16] MEDS: BUTALB/APAP/CAFF 50-325-40MG TAB PO PRN (14:51)
[2024-06-16] MEDS: HYDROcodone/APAP 5-325MG 1 EACH TAB PO PRN (14:51)
[2024-06-16] MEDS: ENOXAPARIN 40 MG/0.4 ML SYRINGE SQ SCH (14:52)
[2024-06-16] MEDS: PROPRANOLOL LA 80 MG CAP.SA.24H PO SCH (14:53)
[2024-06-16] MEDS: ATORVASTATIN 10 MG TAB PO SCH (16:05)
[2024-06-16] MEDS: CYCLOBENZAPRINE 10 MG TAB PO SCH (16:05)
[2024-06-16] MEDS: SYMBICORT 160-4.5 MCG INHALER INHALATION SCH (20:15)
[2024-06-16] MEDS: traZODone HCL 100 MG TAB PO SCH (20:47)
[2024-06-16] MEDS: MONTELUKAST 10 MG TAB PO SCH (20:47)
[2024-06-16] MEDS: BACLOFEN 10 MG TAB PO SCH (20:47)
[2024-06-16] MEDS: rOPINIRole HCL 4 MG TABLET PO SCH (20:47)
[2024-06-16] MEDS: MECLIZINE 25 MG TAB PO SCH (20:47)
[2024-06-16] MEDS: ANASTROZOLE 1 MG TAB PO SCH (20:49)
[2024-06-17] MEDS: IPRATROPIUM-ALBUTEROL 3 ML NEB INHALATION PRN (00:25)
[2024-06-17] MEDS: SODIUM CHLORIDE 0.65% NASAL SPRAY 44 ML BTL NASAL PRN (02:21)
[2024-06-17] MEDS: guaiFENesin-DM 100-10MG/5ML 10 ML CUP PO PRN (03:57)
--- NOTE | 2024-06-17 05:50 | P.CNPUL ---
History of Present Illness Consult date: 06/17/24 Requesting physician: Jean Saldana Reason for consult: COPD, pneumonia Chief complaint: shortness of breath History of present illness: Patient is a 63-year-old female with past medical history significant for COPD, current ongoing tobacco dependence, SWEETIE, hypertension, hyperlipidemia, aortic aneurysm, hypothyroidism, GERD, migraines, breast cancer with previous bilateral mastectomy, gastric surgery, gastritis, recent laparoscopic hernia repair and lysis of adhesions, among other things. Primary care provider is Dr. Hugo Preston. Patient present to the emergency department yesterday afternoon with a chief complaint of progressively worsening shortness of breath over the last 2 weeks. Associated symptoms include nonproductive cough, high fevers, nausea, reduced appetite. States that her cough was productive last week with green phlegm, however, is now more nonproductive and persistent. She is currently reporting substernal chest pressure, nonradiating, rated 10/10, started approximately 15 minutes ago, worse with coughing and deep breathing. She denies any sick contacts. Does report history of COPD, not currently using any inhalers outpatient. Denies home O2. Continues to smoke 3 to 4 cigarettes/month. Does take Chantix on an outpatient basis. Workup in the ED included viral screening which was negative for influenza, RSV, COVID. Chest x- ray showing subtle patchy nodular opacities bilaterally. CBC remarkable for leukocytosis with a WBC count of 13.7. CMP is unremarkable. Patient was started on empiric antibiotics in the ED. Normal saline infusing at 75 ml/hr. Current most recent vitals: Temperature 98 F, heart rate 92 bpm, blood pressure 91/56 mmHg, SpO2 is 92% on 2 L/min nasal cannula. She is being evaluated in the emergency department room 16. She is alert and oriented. No signs of CO2 narcosis. She does have a nonproductive cough. Denies home O2 use. Review of Systems Constitutional: Reports chills, Reports fatigue, Reports fever, Reports poor appetite, Denies night sweats, Denies weight gain, Denies weight loss Ears, nose, mouth and throat: Reports headache, Denies nasal congestion, Denies nasal discharge, Denies post-nasal drip, Denies sinus pain, Denies sinus pressure, Denies sore throat Cardiovascular: Reports chest pain, Reports dyspnea on exertion, Denies leg edema, Denies lightheadedness, Denies orthopnea, Denies palpitations, Denies paroxysmal nocturnal dyspnea, Denies syncope Respiratory: Reports as per HPI Genitourinary: Denies dysuria Musculoskeletal: Denies limitation of motion Integumentary: Denies rash Neurological: Reports migraines, Denies seizures, Denies syncope Psychiatric: Denies anxiety, Denies depression, Denies suicidal ideation Past Medical History Past Medical History: Cancer, COPD, GERD/Reflux, Hyperlipidemia, Hypertension, Sleep Apnea/CPAP/BIPAP, Thyroid Disorder Additional Past Medical History / Comment(s): Hx Covid 06-06-20. Migraines. Sleep apnea resolved with wt loss. Severe vertigo, low heart rate. Hx colon polyp. Chronic back pain. Aortic aneurysm. Hx left breast cancer with surgery 06/2019 - no radiation, had oral chemo. Internal hemorrhoids. Spinal stimulator- posterior lower left hip area - fell on this Lt. hip syncopal episode, 04/26/24- deep tissue injury - started steroids 04/29/24, hx. of "black out" falls at least 5-6 times total History of Any Multi-Drug Resistant Organisms: None Reported Past Surgical History: Bariatric Surgery, Bladder Surgery, Breast Surgery, Orthopedic Surgery Additional Past Surgical History / Comment(s): Loop recorder inserted and removed, eye surgery, left thumb surgery, Rt. ring finger surgery, EGD, colonoscopy, Double Mastectomy (06/2019), Panniculectomy, sleeve gastrectomy (04-20-18), nerve stimulator placed. Past Anesthesia/Blood Transfusion Reactions: No Reported Reaction, Motion Sickness Additional Past Anesthesia/Blood Transfusion Reaction / Comment(s): severe vertigo Type of Cardiac Device: Loop Device Placement Date:: 2019 Past Psychological History: Depression, PTSD Smoking Status: Current some day smoker Past Alcohol Use History: Occasional Past Drug Use History: Cocaine, Marijuana - Past Family History Mother Family Medical History: Cancer Additional Family Medical History / Comment(s): Mother at age 54 due to lung cancer. Patient has 2 aunts that had breast cancer. Patient does not have any children. Father Family Medical History: Coronary Artery Disease (CAD), Diabetes Mellitus Additional Family Medical History / Comment(s): Father is alive with history of CAD, DM and is on home O2. She does not know any further details. Sister(s) Family Medical History: No Reported History Additional Family Medical History / Comment(s): Patient has 2 sisters and one half-sister with no major medical problems. Brother(s) Family Medical History: Coronary Artery Disease (CAD) Additional Family Medical History / Comment(s): Patient has one brother with history of coronary artery disease status post CABG in heart failure. Medications and Allergies Home Medications Medication Instructions Recorded Confirmed Type traZODone HCL [Desyrel] 100 mg PO HS 11/21/14 06/16/24 History Atorvastatin [Lipitor] 10 mg PO HS 11/24/17 06/16/24 History Baclofen [Lioresal] 10 mg PO BID 05/25/18 06/16/24 History SUMAtriptan succinate [Imitrex] 100 mg PO BID PRN 06/22/18 06/16/24 History Meclizine [Antivert] 25 mg PO BID 02/05/19 06/16/24 History Anastrozole [Arimidex] 1 mg PO HS 10/22/19 06/16/24 History Terazosin [Hytrin] 1 mg PO DAILY 10/22/19 06/16/24 History Levothyroxine Sodium [Synthroid] 112 mcg PO DAILY 10/09/21 06/16/24 History Varenicline [Chantix Continuing 1 mg PO DAILY 10/09/21 06/16/24 History Pack] Alendronate Sodium [Fosamax] 70 mg PO WE 08/19/22 06/16/24 History Propranolol LA [Inderal LA] 80 mg PO DAILY 08/19/22 06/16/24 History Butalb/Acetaminophen/Caffeine 1 tab PO BID PRN 12/03/23 06/16/24 History [Fioricet 50-325-40] Montelukast [Singulair] 10 mg PO HS 12/03/23 06/16/24 History Omeprazole 20 mg PO BID 02/19/24 06/16/24 History Cyclobenzaprine [Flexeril] 10 mg PO BID 04/26/24 06/16/24 History Ibuprofen [Motrin] 800 mg PO Q8HR PRN #30 tab 04/26/24 06/16/24 Rx Prochlorperazine [Compazine] 10 mg PO Q4H PRN 04/26/24 06/16/24 History rOPINIRole HCL 4 mg PO HS 04/26/24 06/16/24 History HYDROcodone/APAP 5-325MG [[place] 1 tab PO Q6HR PRN 5 Days #20 tab 05/06/24 06/16/24 Rx 5-325] Allergies Allergy/AdvReac Type Severity Reaction Status Date / Time latex Allergy Rash/Hives Verified 06/16/24 10:10 nickel Allergy Rash/Hives Verified 06/16/24 10:10 paper tape Allergy Rash/Hives Uncoded 06/16/24 01:39 Physical Exam Vitals: Vital Signs Temp Pulse Resp BP Pulse Ox 06/17/24 01:08 93 18 91/56 92 L 06/17/24 00:37 97 06/17/24 00:29 96 18 102/64 94 L 06/17/24 00:26 98 06/16/24 21:29 94 18 97/73 98 06/16/24 20:29 95 06/16/24 20:15 97 06/16/24 20:00 18 06/16/24 16:29 96 06/16/24 16:20 96 06/16/24 15:57 96 18 117/82 93 L 06/16/24 14:53 96 20 101/81 92 L 06/16/24 12:15 92 06/16/24 12:06 92 06/16/24 08:59 92 20 106/62 92 L 06/16/24 07:02 97.9 F 93 18 121/80 94 L 06/16/24 04:00 96 20 124/44 94 L 06/16/24 02:42 113 H 06/16/24 02:14 120 H 06/16/24 01:50 24 06/16/24 01:47 98.0 F 06/16/24 01:35 123 H 24 136/90 87 L GENERAL EXAM: Alert, 63-year-old white female, comfortable in no apparent distress. HEAD: Normocephalic and atraumatic EYES: Normal reaction of pupils, equal size. NOSE: Clear with pink turbinates. THROAT: No erythema or exudates. NECK: No masses, no JVD. CHEST: No chest wall deformity. Bilateral mastectomy LUNGS: Equal air entry with faint expiratory wheezes and rhonchi bilaterally. On 2 L/min nasal cannula. SpO2 92%. No conversational dyspnea or accessory muscle use.. CVS: S1 and S2 normal with no audible murmur, regular rhythm. No extra heart sounds ABDOMEN: No hepatosplenomegaly, active bowel sounds, no guarding or rigidity. SPINE: No scoliosis or deformity SKIN: No rashes CENTRAL NERVOUS SYSTEM: No focal deficits, tone is normal in all 4 extremities. EXTREMITIES: There is no peripheral edema, clubbing, or cyanosis. Peripheral pulses are intact. Results - Laboratory Findings CBC and BMP: 06/16/24 02:27 06/16/24 02:27 PT/INR, D-dimer PT 11.9 sec (10.0-12.5) 06/16/24 02:27 INR 1.1 (<1.2) 06/16/24 02:27 Abnormal lab findings: Abnormal Labs 06/16/24 06/16/24 02:27 02:27 WBC 13.7 H RBC 5.51 H Hgb 16.5 H Hct 52.1 H Neutrophils # 11.2 H BUN 22 H Creatinine 1.17 H Glucose 159 H Alkaline Phosphatase 177 H - Diagnostic Findings Chest x-ray: image reviewed Assessment and Plan Assessment: Acute COPD exacerbation, Chest x-ray showing subtle patchy nodular bilateral airspace opacities, possible bilateral community acquired pneumonia. Acute hypoxemic respiratory failure, secondary to above Acute leukocytosis Chronic ongoing tobacco dependence, currently on Chantix, still smokes 3 to 4 cigarettes/month Hypertension History of hyperlipidemia History of aortic aneurysm History of hypothyroidism Obesity with BMI 33.3 kg/m2 History of sleeve gastrectomy History of gastritis History SWEETIE, no longer uses CPAP machine History of GERD History of chronic migraines History of breast cancer with bilateral mastectomy History of laparoscopic hernia repair with lysis of adhesions Plan: Patient's medications, labs, chest x-ray reviewed Continue supplemental oxygen maintain oxygen saturation of 92% or greater Continue bronchodilators, IV Solu-Medrol, and add Symbicort inhaler Chest x-ray showing subtle patchy nodular bilateral airspace opacities Continue empiric antibiotics Check procalcitonin level Negative for influenza, RSV, COVID Add Robitussin DM for cough Patient reporting new onset chest pain, obtain repeat EKG, obtain cardiac troponin. GI prophylaxis: Protonix DVT prophylaxis: Lovenox Smoking cessation counseling performed greater than 10 minutes, patient's Cates tix has been resumed We will continue to follow I have personally seen and examined the patient, performed the documentation and the assessment and plan as written. Number of minutes spent on the visit:20 This dictation was produced using [employer] dictation software please excuse grammatical errors Time with Patient: Greater than 30
[2024-06-17] MEDS: AZITHROMYCIN 500 MG in SODIUM CHLORIDE 0.9% 250 ML IVPB SCH (06:18)
[2024-06-17] MEDS: LEVOTHYROXINE 112 MCG TAB PO SCH (06:46)
[2024-06-17] MEDS: PANTOPRAZOLE 40 MG TABLET PO SCH (08:37)
[2024-06-17] MEDS: DOXAZOSIN 1 MG TAB PO SCH (08:37)
[2024-06-17] MEDS: VARENICLINE 1 MG TAB PO SCH (08:37)
[2024-06-17 10:52] LABS: HCT 41.3 % (37.2-46.3); HGB 12.5 g/dL (12.0-15.0); MCH 28.9 pg (27.0-32.0); MCHC 30.3 g/dL (32.0-37.0); MCV 95.6 FL (80.0-97.0); Mean Platelet Volume 11.1 FL (9.5-12.2); NRBC Per 100 WBC 0 X 10*3/uL (0.00-0.01); Platelet Count 245 X 10*3/uL (140-440); RBC 4.32 X 10*6/uL (4.10-5.20); WBC 18.72 X 10*3/uL (4.50-10.00)
[2024-06-17 11:10] LABS: BUN/Creat Ratio 17.77 Ratio (12.00-20.00); Blood Urea Nitrogen 23.1 mg/dL (9.0-27.0); Calcium 8.8 mg/dL (8.7-10.3); Carbon Dioxide 25.1 mmol/L (21.6-31.8); Chloride 100 mmol/L (96-109); Glucose 182 mg/dL (70-110); Potassium 5.1 mmol/L (3.5-5.5); Sodium 139 mmol/L (135-145)
[2024-06-17 12:25] LABS: Basophils # (M) 0 X 10*3/uL (0.00-0.10); Eosinophils # (M) 0 X 10*3/uL (0.04-0.35); Lymphocytes # (M) 0.75 X 10*3/uL (0.90-5.00); Metamyelocytes % 6 % (0-0); Monocytes # (M) 0.37 X 10*3/uL (0.20-1.00); Myelocytes % 4 % (0-0); Neutrophils # (M) 15.72 X 10*3/uL (1.80-7.70); Neutrophils % (M) 84 %; RBC Morphology Normal (Normal)
--- NOTE | 2024-06-17 14:28 | P.PN ---
Subjective Progress Note Date: 06/17/24 Interval History: History of present illness: 63-year-old female with past medical history significant for COPD not on home oxygen, history of hypertension, hyperlipidemia, obstructive sleep apnea, hypothyroidism, aortic aneurysm, history of left breast cancer with surgery in 2019, history of spinal stimulator, GERD who presented to ER with a worsening shortness breath cough nausea and headache. Patient reported that she was having shortness of breath for the last 2 weeks which started to get progress ively worse for the last few days, patient also reported productive cough, nausea and headache also reported fever and chills. Patient reported history of COPD, does not use home oxygen. Patient denied any sore throat, runny nose, chest pain, palpitations, vomiting diarrhea constipation abdominal pain dysuria urgency frequency weakness or numbness of extremities. In the ED patient was afebrile, heart rate 92, respiratory rate 106/62, saturating 94% on room air. WBCs 13.7, hemoglobin 16.5, platelet 287. BMP was unremarkable except BUN 22, creatinine 1.17. LFTs unremarkable except alkaline phosphatase 177. Influenza RSV and COVID was negative. Chest x-ray showed small amount of patchy nodular opacities throughout the both lungs, new concerning for bilateral pneumonia. EKG showed sinus tachycardia, incomplete right bundle branch block, QTc 396. 06/17/24--patient was seen and examined today. Patient is afebrile, heart rate 67, respiratory rate 18, blood pressure soft 96/86, saturating 96% on 3 L. WBCs 18.7, hemoglobin 12.5, platelet 245. Sodium 139, potassium 5.1, BUN 23, creatinine 1.3. Patient complained of chest pain worse with cough, troponin negative. Blood culture negative so far. Assessment and plan: Acute hypoxic respiratory failure: Acute COPD exacerbation Bilateral pneumonia: Presented with worsening shortness of breath, productive cough, headache, nausea, fever and chills. Chest x-ray concerning for bilateral pneumonia Leukocytosis on presentation, saturating 87% on room air, required 2 L supplemental oxygen Continue inhalers/bronchodilator protocol, Solu-Medrol, incentive spirometry Rocephin and azithromycin Pulmonary consult Hypertension: Hyperlipidemia: History of left breast cancer: History of migraine: History of sleeve gastrectomy Morbid obesity with BMI 33.3 Hypothyroidism Obstructive sleep apnea not on CPAP GERD DVT prophylaxis Subcutaneous Lovenox Monitor vital signs and labs Labs and medication were reviewed. Continue same treatment. Further recommendations as per clinical course of the patient PHYSICAL EXAMINATION: GENERAL: The patient is A&O x3, NAD HEENT: EOMI, Sclerae anicteric, Moist Mucous membranes Neck: Supple, Non tender, No JVD PULMONARY: Decreased breath souds B/L, No wheezing, No crackles. CARDIOVASCULAR: S1, S2 present. No murmurs, rubs, or gallops. ABDOMEN: Soft, nontender, nondistended, normoactive bowel sounds. No guarding or rebound tenderness. MUSCULOSKELETAL: No edema, No cyanosis. No clubbing. Normal ROM. Intact peripheral pulses. NEUROLOGICAL: CN 2-12 grossly intact. No FND REVIEW OF SYSTEMS: CONSTITUTIONAL: No fever, no malaise, no fatigue. HEENT: No recent visual problems or hearing problems. Denied any sore throat. CARDIOVASCULAR: No chest pain, orthopnea, PND, no palpitations, no syncope. PULMONARY: Complains of shortness breath, cough, congestion. GASTROINTESTINAL: No diarrhea, no nausea, no vomiting, no abdominal pain. NEUROLOGICAL: c/o headache. HEMATOLOGICAL: Denies any bleeding or petechiae. GENITOURINARY: Denies any burning micturition, frequency, or urgency. MUSCULOSKELETAL/RHEUMATOLOGICAL: Denies any joint pain, swelling, or any muscle pain. ENDOCRINE: Denies any polyuria or polydipsia. The rest of the 14-point review of systems is negative. Dictation was produced using [employer] dictation software. please excuse any grammatical, word or spelling errors. Objective - Vital Signs Vital signs: Vital Signs Temp 98.1 F 06/17/24 14:07 Pulse 67 06/17/24 14:07 Resp 18 06/17/24 14:07 BP 96/86 06/17/24 14:07 Pulse Ox 96 06/17/24 14:07 FiO2 - Labs CBC & Chem 7: 06/17/24 06:10 06/17/24 06:10 Labs: Abnormal Lab Results - Last 24 Hours (Table) 06/17/24 06/17/24 Range/Units 06:10 06:10 WBC 18.72 H (4.50-10.00) X 10*3/uL MCHC 30.3 L (32.0-37.0) g/dL RDW 15.0 H (11.5-14.5) % Neutrophils # (Manual) 15.72 H (1.80-7.70) X 10*3/uL Lymphocytes # (Manual) 0.75 L (0.90-5.00) X 10*3/uL Eosinophils # (Manual) 0 L (0.04-0.35) X 10*3/uL Anion Gap 13.90 H (4.00-12.00) mmol/L Est GFR (CKD-EPI) 46 L (>=60) Glucose 182 H (70-110) mg/dL Microbiology - Last 24 Hours (Table) 06/16/24 05:30 Blood Culture - Preliminary Blood
[2024-06-18] MEDS: ONDANSETRON 4 MG/2 ML VIAL IVP PRN (05:52)
[2024-06-18 08:59] LABS: Blood Urea Nitrogen 23.4 mg/dL (9.0-27.0); Calcium 7.9 mg/dL (8.7-10.3); Carbon Dioxide 24.1 mmol/L (21.6-31.8); Chloride 105 mmol/L (96-109); Glucose 168 mg/dL (70-110); Potassium 4.3 mmol/L (3.5-5.5); Sodium 138 mmol/L (135-145)
[2024-06-18 09:08] LABS: HCT 36.1 % (37.2-46.3); HGB 11.2 g/dL (12.0-15.0); MCH 28.9 pg (27.0-32.0); MCV 93.3 FL (80.0-97.0); Mean Platelet Volume 11.4 FL (9.5-12.2); NRBC Per 100 WBC 0 X 10*3/uL (0.00-0.01); Platelet Count 248 X 10*3/uL (140-440); RBC 3.87 X 10*6/uL (4.10-5.20); RDW 15.1 % (11.5-14.5); WBC 15.57 X 10*3/uL (4.50-10.00)
[2024-06-18 09:44] LABS: Basophils # (M) 0 X 10*3/uL (0.00-0.10); Eosinophils # (M) 0 X 10*3/uL (0.04-0.35); Lymphocytes # (M) 1.09 X 10*3/uL (0.90-5.00); Metamyelocytes % 1 % (0-0); Monocytes # (M) 0.62 X 10*3/uL (0.20-1.00); Myelocytes % 1 % (0-0); Neutrophils # (M) 13.55 X 10*3/uL (1.80-7.70); Neutrophils % (M) 87 %
--- NOTE | 2024-06-18 14:52 | P.PN ---
Subjective Progress Note Date: 06/18/24 Patient is a 63-year-old female with past medical history significant for COPD, current ongoing tobacco dependence, SWEETIE, hypertension, hyperlipidemia, aortic aneurysm, hypothyroidism, GERD, migraines, breast cancer with previous bilateral mastectomy, gastric surgery, gastritis, recent laparoscopic hernia repair and lysis of adhesions, among other things. Primary care provider is Dr. Hugo Preston. Patient present to the emergency department yesterday afternoon with a chief complaint of progressively worsening shortness of breath over the last 2 weeks. Associated symptoms include nonproductive cough, high fevers, nausea, reduced appetite. States that her cough was productive last week with green phlegm, however, is now more nonproductive and persistent. She is currently reporting substernal chest pressure, nonradiating, rated 10/10, started approximately 15 minutes ago, worse with coughing and deep breathing. She denies any sick contacts. Does report history of COPD, not currently using any inhalers outpatient. Denies home O2. Continues to smoke 3 to 4 cigarettes/month. Does take Chantix on an outpatient basis. Workup in the ED included viral screening which was negative for influenza, RSV, COVID. Chest x- ray showing subtle patchy nodular opacities bilaterally. CBC remarkable for leukocytosis with a WBC count of 13.7. CMP is unremarkable. Patient was started on empiric antibiotics in the ED. Normal saline infusing at 75 ml/hr. Current most recent vitals: Temperature 98 F, heart rate 92 bpm, blood pressure 91/56 mmHg, SpO2 is 92% on 2 L/min nasal cannula. She is being evaluated in the emergency department room 16. She is alert and oriented. No signs of CO2 na rcosis. She does have a nonproductive cough. Denies home O2 use. The patient is seen today June 18, 2024 in follow-up on the regular medical floor. She is currently sitting up at the bedside. Awake and alert in no acute distress. She is maintaining good O2 saturations in the 90s on 3 L/min per nasal cannula. Her procalcitonin was negative at 0.14. Her ceftriaxone will be discontinued. Breathing easier today compared to yesterday. Culture revealing no growth. White count 15.5. Hemoglobin 11.2. Platelets 248. Sodium 138. Potassium 4.3. Bicarb 24. BUN 23. Creatinine 0.9. Glucose 168. She is continued on Symbicort, Singulair, DuoNeb inhalations, Solu-Medrol. Lovenox for DVT prophylaxis. Objective - Vital Signs Vital signs: Vital Signs Temp 97.8 F 06/18/24 07:58 Pulse 60 06/18/24 12:23 Resp 18 06/18/24 07:58 BP 95/65 06/18/24 07:58 Pulse Ox 90 L 06/18/24 09:11 FiO2 Intake & Output 06/17/24 06/18/24 06/18/24 18:59 06:59 18:59 Intake Total 540 Balance 540 Weight 90.718 kg Intake: Oral 540 Other: Voiding Method Toilet # Voids 2 - Exam GENERAL EXAM: Alert, 63-year-old female, seen comfortably in bed, on 3 L nasal cannula, in no apparent distress. HEAD: Normocephalic and atraumatic EYES: Normal reaction of pupils, equal size. NOSE: Clear with pink turbinates. THROAT: No erythema or exudates. NECK: No masses, no JVD. CHEST: No chest wall deformity. Bilateral mastectomy LUNGS: Equal air entry with faint expiratory wheezes and rhonchi bilaterally. CVS: S1 and S2 normal with no audible murmur, regular rhythm. No extra heart sounds ABDOMEN: No hepatosplenomegaly, active bowel sounds, no guarding or rigidity. SPINE: No scoliosis or deformity SKIN: No rashes CENTRAL NERVOUS SYSTEM: No focal deficits, tone is normal in all 4 extremities. EXTREMITIES: There is no peripheral edema, clubbing, or cyanosis. Peripheral pulses are intact. - Labs CBC & Chem 7: 06/18/24 05:23 06/18/24 05:23 Labs: Abnormal Lab Results - Last 24 Hours (Table) 06/18/24 06/18/24 Range/Units 05:23 05:23 WBC 15.57 H (4.50-10.00) X 10*3/uL RBC 3.87 L (4.10-5.20) X 10*6/uL Hgb 11.2 L (12.0-15.0) g/dL Hct 36.1 L (37.2-46.3) % MCHC 31.0 L (32.0-37.0) g/dL RDW 15.1 H (11.5-14.5) % Neutrophils # (Manual) 13.55 H (1.80-7.70) X 10*3/uL Eosinophils # (Manual) 0 L (0.04-0.35) X 10*3/uL BUN/Creatinine Ratio 26.00 H (12.00-20.00) Ratio Glucose 168 H (70-110) mg/dL Calcium 7.9 L (8.7-10.3) mg/dL Microbiology - Last 24 Hours (Table) 06/16/24 05:30 Blood Culture - Preliminary Blood Assessment and Plan Assessment: Acute COPD exacerbation, Chest x-ray showing subtle patchy nodular bilateral airspace opacities, however procalcitonin is negative. Acute hypoxemic respiratory failure, secondary to above Acute leukocytosis Chronic ongoing tobacco dependence, currently on Chantix, still smokes 3 to 4 cigarettes/month Hypertension History of hyperlipidemia History of aortic aneurysm History of hypothyroidism Obesity with BMI 33.3 kg/m2 History of sleeve gastrectomy History of gastritis History SWEETIE, no longer uses CPAP machine History of GERD History of chronic migraines History of breast cancer with bilateral mastectomy History of laparoscopic hernia repair with lysis of adhesions Plan: The patient was seen and evaluated Labs and medications reviewed Procalcitonin negative Ceftriaxone discontinued Could be considered for discharge Evaluate for possible home oxygen Continued on Symbicort, Singulair, albuterol Will transition to prednisone taper Educated regarding complete smoking cessation Continue on her Chantix I have personally seen and examined the patient, performed the documentation and the assessment and plan as written. Number of minutes spent on the visit: 10 Dictation was produced using [employer] dictation software. Please excuse any grammatical, word or spelling errors. This patient was seen in coordination with the pulmonary/critical care physician, Dr. Akins. He did spend greater than 50% of the time evaluating, examining and developing the plan of care. He agrees to the above HPI, physical exam, assessment and plan of care as dictated by the nurse practitioner.
--- NOTE | 2024-06-18 16:23 | P.PN ---
Subjective Interval History: History of present illness: 63-year-old female with past medical history significant for COPD not on home oxygen, history of hypertension, hyperlipidemia, obstructive sleep apnea, hypothyroidism, aortic aneurysm, history of left breast cancer with surgery in 2019, history of spinal stimulator, GERD who presented to ER with a worsening shortness breath cough nausea and headache. Patient reported that she was having shortness of breath for the last 2 weeks which started to get progressively worse for the last few days, patient also reported productive cough, nausea and headache also reported fever and chills. Patient reported history of COPD, does not use home oxygen. Patient denied any sore throat, runny nose, chest pain, palpitations, vomiting diarrhea constipation abdominal pain dysuria urgency frequency weakness or numbness of extremities. In the ED patient was afebrile, heart rate 92, respiratory rate 106/62, saturating 94% on room air. WBCs 13.7, hemoglobin 16.5, platelet 287. BMP was unremarkable except BUN 22, creatinine 1.17. LFTs unremarkable except alkaline phosphatase 177. Influenza RSV and COVID was negative. Chest x-ray showed small amount of patchy nodular opacities throughout the both lungs, new concerning for bilateral pneumonia. EKG showed sinus tachycardia, incomplete right bundle branch block, QTc 396. 06/17/24--patient was seen and examined today. Patient is afebrile, heart rate 67, respiratory rate 18, blood pressure soft 96/86, saturating 96% on 3 L. WBCs 18.7, hemoglobin 12.5, platelet 245. Sodium 139, potassium 5.1, BUN 23, creatinine 1.3. Patient complained of chest pain worse with cough, troponin negative. Blood culture negative so far. 06/18/24--patient was seen and examined today. Patient was very anxious, was complaining of chest pain, congestion, productive cough, chest pain worse with deep breaths and coughing, patient was very anxious and was crying in the room and stated that her productive cough, shortness of breath and congestion is worse today. Patient currently on 3 L oxygen, afebrile, heart rate 59, respiratory rate 18, blood pressure 100/68. WBCs 15.5, hemoglobin 11.2, platelet 248. BMP unremarkable. Blood cultures negative so far. On inhalers and bronchodilator protocol and prednisone. Assessment and plan: Acute hypoxic respiratory failure: Acute COPD exacerbation Bilateral pneumonia: Presented with worsening shortness of breath, productive cough, headache, nausea, fever and chills. Chest x-ray concerning for bilateral pneumonia Leukocytosis on presentation, saturating 87% on room air, required 2 L supplemental oxygen Continue inhalers/bronchodilator protocol, Solu-Medrol, incentive spirometry Rocephin and azithromycin initially, now discontinued per pulmonary as procalcitonin was -0.14. Pulmonary consulted Hypertension: Hyperlipidemia: History of left breast cancer: History of migraine: History of sleeve gastrectomy Morbid obesity with BMI 33.3 Hypothyroidism Obstructive sleep apnea not on CPAP GERD DVT prophylaxis Subcutaneous Lovenox Monitor vital signs and labs Labs and medication were reviewed. Continue same treatment. Further recommendations as per clinical course of the patient PHYSICAL EXAMINATION: GENERAL: The patient is A&O x3, NAD HEENT: EOMI, Sclerae anicteric, Moist Mucous membranes Neck: Supple, Non tender, No JVD PULMONARY: Decreased breath souds B/L, No wheezing, No crackles. CARDIOVASCULAR: S1, S2 present. No murmurs, rubs, or gallops. ABDOMEN: Soft, nontender, nondistended, normoactive bowel sounds. No guarding or rebound tenderness. MUSCULOSKELETAL: No edema, No cyanosis. No clubbing. Normal ROM. Intact peripheral pulses. NEUROLOGICAL: CN 2-12 grossly intact. No FND REVIEW OF SYSTEMS: CONSTITUTIONAL: No fever, no malaise, no fatigue. HEENT: No recent visual problems or hearing problems. Denied any sore throat. CARDIOVASCULAR: Complains of chest pain worse with coughing and deep breaths. Orthopnea, PND, no palpitations, no syncope. PULMONARY: Complains of shortness breath, cough, congestion. GASTROINTESTINAL: No diarrhea, no nausea, no vomiting, no abdominal pain. NEUROLOGICAL: c/o headache. HEMATOLOGICAL: Denies any bleeding or petechiae. GENITOURINARY: Denies any burning micturition, frequency, or urgency. MUSCULOSKELETAL/RHEUMATOLOGICAL: Denies any joint pain, swelling, or any muscle pain. ENDOCRINE: Denies any polyuria or polydipsia. The rest of the 14-point review of systems is negative. Dictation was produced using [employer] software. please excuse any grammatical, word or spelling errors. Objective - Vital Signs Vital signs: Vital Signs Temp 97.7 F 06/18/24 14:00 Pulse 59 L 01/03/25 14:00 Resp 18 06/18/24 14:00 BP 100/68 06/18/24 14:00 Pulse Ox 94 L 06/18/24 14:00 FiO2 Intake & Output 06/17/24 06/18/24 06/18/24 18:59 06:59 18:59 Intake Total 540 Balance 540 Weight 90.718 kg Intake: Oral 540 Other: Voiding Method Toilet # Voids 2 - Labs CBC & Chem 7: 06/18/24 05:23 06/18/24 05:23 Labs: Abnormal Lab Results - Last 24 Hours (Table) 06/18/24 06/18/24 Range/Units 05:23 05:23 WBC 15.57 H (4.50-10.00) X 10*3/uL RBC 3.87 L (4.10-5.20) X 10*6/uL Hgb 11.2 L (12.0-15.0) g/dL Hct 36.1 L (37.2-46.3) % MCHC 31.0 L (32.0-37.0) g/dL RDW 15.1 H (11.5-14.5) % Neutrophils # (Manual) 13.55 H (1.80-7.70) X 10*3/uL Eosinophils # (Manual) 0 L (0.04-0.35) X 10*3/uL BUN/Creatinine Ratio 26.00 H (12.00-20.00) Ratio Glucose 168 H (70-110) mg/dL Calcium 7.9 L (8.7-10.3) mg/dL Microbiology - Last 24 Hours (Table) 06/16/24 05:30 Blood Culture - Preliminary Blood
[2024-06-19] MEDS: ACETAMINOPHEN TAB 325 MG TAB PO PRN (05:45)
[2024-06-19] MEDS: predniSONE 20 MG TAB PO SCH (07:57)
--- NOTE | 2024-06-19 13:38 | P.PN ---
Subjective Progress Note Date: 06/19/24 Patient is a 63-year-old female with past medical history significant for COPD, current ongoing tobacco dependence, SWEETIE, hypertension, hyperlipidemia, aortic aneurysm, hypothyroidism, GERD, migraines, breast cancer with previous bilateral mastectomy, gastric surgery, gastritis, recent laparoscopic hernia repair and lysis of adhesions, among other things. Primary care provider is Dr. Hugo Preston. Patient present to the emergency department yesterday afternoon with a chief complaint of progressively worsening shortness of breath over the last 2 weeks. Associated symptoms include nonproductive cough, high fevers, nausea, reduced appetite. States that her cough was productive last week with green phlegm, however, is now more nonproductive and persistent. She is currently reporting substernal chest pressure, nonradiating, rated 10/10, started approximately 15 minutes ago, worse with coughing and deep breathing. She denies any sick contacts. Does report history of COPD, not currently using any inhalers outpatient. Denies home O2. Continues to smoke 3 to 4 cigarettes/month. Does take Chantix on an outpatient basis. Workup in the ED included viral screening which was negative for influenza, RSV, COVID. Chest x- ray showing subtle patchy nodular opacities bilaterally. CBC remarkable for leukocytosis with a WBC count of 13.7. CMP is unremarkable. Patient was started on empiric antibiotics in the ED. Normal saline infusing at 75 ml/hr. Current most recent vitals: Temperature 98 F, heart rate 92 bpm, blood pressure 91/56 mmHg, SpO2 is 92% on 2 L/min nasal cannula. She is being evaluated in the emergency department room 16. She is alert and oriented. No signs of CO2 na rcosis. She does have a nonproductive cough. Denies home O2 use. The patient is seen today June 18, 2024 in follow-up on the regular medical floor. She is currently sitting up at the bedside. Awake and alert in no acute distress. She is maintaining good O2 saturations in the 90s on 3 L/min per nasal cannula. Her procalcitonin was negative at 0.14. Her ceftriaxone will be discontinued. Breathing easier today compared to yesterday. Culture revealing no growth. White count 15.5. Hemoglobin 11.2. Platelets 248. Sodium 138. Potassium 4.3. Bicarb 24. BUN 23. Creatinine 0.9. Glucose 168. She is continued on Symbicort, Singulair, DuoNeb inhalations, Solu-Medrol. Lovenox for DVT prophylaxis. The patient is seen today June 19, 2024 in follow-up on the regular medical floor. She is currently resting comfortably in bed. Awake and alert in no acute distress. Maintaining O2 saturations in the 90s on 4 L/min per nasal cannula. Normal saline at 75 mL/h. Her procalcitonin was negative at 0.07. Blood culture reveals no growth. She remains on DuoNeb and elations, Symbicort, prednisone. Lovenox for DVT prophylaxis. Robitussin for her cough. Objective - Vital Signs Vital signs: Vital Signs Temp 97.7 F 06/19/24 06:54 Pulse 72 06/19/24 12:40 Resp 20 06/19/24 07:55 BP 135/85 06/19/24 06:54 Pulse Ox 92 L 06/19/24 08:41 FiO2 Intake & Output 06/18/24 06/19/24 06/19/24 18:59 06:59 18:59 Intake Total 540 Balance 540 Intake: Oral 540 Other: # Voids 4 3 - Exam GENERAL EXAM: Alert, 63-year-old female, on 3 L nasal cannula, in no apparent distress. HEAD: Normocephalic and atraumatic EYES: Normal reaction of pupils, equal size. NOSE: Clear with pink turbinates. THROAT: No erythema or exudates. NECK: No masses, no JVD. CHEST: No chest wall deformity. Bilateral mastectomy LUNGS: Equal air entry with faint expiratory wheezes and rhonchi bilaterally. CVS: S1 and S2 normal with no audible murmur, regular rhythm. No extra heart sounds ABDOMEN: No hepatosplenomegaly, active bowel sounds, no guarding or rigidity. SPINE: No scoliosis or deformity SKIN: No rashes CENTRAL NERVOUS SYSTEM: No focal deficits, tone is normal in all 4 extremities. EXTREMITIES: There is no peripheral edema, clubbing, or cyanosis. Peripheral pulses are intact. - Labs CBC & Chem 7: 06/18/24 05:23 06/18/24 05:23 Labs: Microbiology - Last 24 Hours (Table) 06/16/24 05:30 Blood Culture - Preliminary Blood Assessment and Plan Assessment: Acute COPD exacerbation, Chest x-ray showing subtle patchy nodular bilateral airspace opacities, however procalcitonin is negative. Acute hypoxemic respiratory failure, secondary to above Acute leukocytosis Chronic ongoing tobacco dependence, currently on Chantix, still smokes 3 to 4 cigarettes/month Hypertension History of hyperlipidemia History of aortic aneurysm History of hypothyroidism Obesity with BMI 33.3 kg/m2 History of sleeve gastrectomy History of gastritis History SWEETIE, no longer uses CPAP machine History of GERD History of chronic migraines History of breast cancer with bilateral mastectomy History of laparoscopic hernia repair with lysis of adhesions Plan: The patient was seen and evaluated Labs and medications reviewed Could be considered for discharge Evaluate for possible home oxygen Continued on Symbicort, Singulair, albuterol Complete a prednisone taper Continue on her Chantix I have personally seen and examined the patient, performed the documentation and the assessment and plan as written. Number of minutes spent on the visit: 10 Dictation was produced using [employer] dictation software. Please excuse any grammatical, word or spelling errors. This patient was seen in coordination with the pulmonary/critical care physician, Dr. Akins. He did spend greater than 50% of the time evaluating, examining and developing the plan of care. He agrees to the above HPI, physical exam, assessment and plan of care as dictated by the nurse practitioner.
--- NOTE | 2024-06-19 15:31 | P.PN ---
Subjective Progress Note Date: 06/19/24 63-year-old female with past medical history significant for COPD not on home oxygen, history of hypertension, hyperlipidemia, obstructive sleep apnea, hypothyroidism, aortic aneurysm, history of left breast cancer with surgery in 2019, history of spinal stimulator, GERD who presented to ER with a worsening shortness breath cough nausea and headache. Patient reported that she was having shortness of breath for the last 2 weeks which started to get progressively worse for the last few days, patient also reported productive cough, nausea and headache also reported fever and chills. Patient reported h istory of COPD, does not use home oxygen. Patient denied any sore throat, runny nose, chest pain, palpitations, vomiting diarrhea constipation abdominal pain dysuria urgency frequency weakness or numbness of extremities. In the ED patient was afebrile, heart rate 92, respiratory rate 106/62, saturating 94% on room air. WBCs 13.7, hemoglobin 16.5, platelet 287. BMP was unremarkable except BUN 22, creatinine 1.17. LFTs unremarkable except alkaline phosphatase 177. Influenza RSV and COVID was negative. Chest x-ray showed small amount of patchy nodular opacities throughout the both lungs, new concerning for bilateral pneumonia. EKG showed sinus tachycardia, incomplete right bundle branch block, QTc 396. 06/17/24--patient was seen and examined today. Patient is afebrile, heart rate 67, respiratory rate 18, blood pressure soft 96/86, saturating 96% on 3 L. WBCs 18.7, hemoglobin 12.5, platelet 245. Sodium 139, potassium 5.1, BUN 23, creatinine 1.3. Patient complained of chest pain worse with cough, troponin negative. Blood culture negative so far. 06/18/24--patient was seen and examined today. Patient was very anxious, was complaining of chest pain, congestion, productive cough, chest pain worse with deep breaths and coughing, patient was very anxious and was crying in the room and stated that her productive cough, shortness of breath and congestion is worse today. Patient currently on 3 L oxygen, afebrile, heart rate 59, respiratory rate 18, blood pressure 100/68. WBCs 15.5, hemoglobin 11.2, platelet 248. BMP unremarkable. Blood cultures negative so far. On inhalers and bronchodilator protocol and prednisone. 06/19. Patient seen and examined. States she feels slightly better compared to yesterday. Still gets short of breath on exertion. REVIEW OF SYSTEMS: CONSTITUTIONAL: No fever, no malaise,. CARDIOVASCULAR: No chest pain, no palpitations, no syncope. PULMONARY: No shortness of breath, no cough, GASTROINTESTINAL: No diarrhea, no nausea, no vomiting, no abdominal pain. NEUROLOGICAL: No headaches, no weakness, PHYSICAL EXAMINATION: GENERAL: The patient is alert and oriented x3, not in any acute distress. Well developed, well nourished. HEENT: Pupils are round and equally reacting to light. EOMI. No scleral icterus. No conjunctival pallor. Normocephalic, atraumatic. No pharyngeal erythema. No thyromegaly. CARDIOVASCULAR: S1 and S2 present. No murmurs, rubs, or gallops. PULMONARY: Coarse breath sound bilaterally,, no wheezing or crackles. ABDOMEN: Soft, nontender, nondistended, normoactive bowel sounds. No palpable organomegaly. MUSCULOSKELETAL: No joint swelling or deformity. EXTREMITIES: No cyanosis, clubbing, or pedal edema. NEUROLOGICAL: Gross neurological examination did not reveal any focal deficits. SKIN: No rashes. Assessment and plan Acute hypoxic respiratory failure: Acute COPD exacerbation Bilateral pneumonia: Presented with worsening shortness of breath, productive cough, headache, nausea, fever and chills. Chest x-ray concerning for bilateral pneumonia Leukocytosis on presentation, saturating 87% on room air, required 2 L supplemental oxygen Continue inhalers/bronchodilator protocol, Solu-Medrol, incentive spirometry Rocephin and azithromycin initially, now discontinued per pulmonary as procalcitonin was -0.14. Pulmonary following Hypertension: Hyperlipidemia: History of left breast cancer: History of migraine: History of sleeve gastrectomy Morbid obesity with BMI 33.3 Hypothyroidism Obstructive sleep apnea not on CPAP GERD Labs and medication were reviewed.. Continue same treatment. Continue with symptomatic treatment. Resume home medication. Monitor labs and vitals. DVT and GI prophylaxis. Further recommendations as per clinical course of the patient Dictation was produced using [employer] dictation software. please excuse any grammatical, word or spelling errors. Objective - Vital Signs Vital signs: Vital Signs Temp 97.7 F 06/19/24 06:54 Pulse 67 06/19/24 08:39 Resp 20 06/19/24 07:55 BP 135/85 06/19/24 06:54 Pulse Ox 92 L 06/19/24 08:41 FiO2 Intake & Output 06/18/24 06/19/24 06/19/24 18:59 06:59 18:59 Intake Total 540 Balance 540 Intake: Oral 540 Other: # Voids 4 3 - Labs CBC & Chem 7: 06/18/24 05:23 06/18/24 05:23 Labs: Microbiology - Last 24 Hours (Table) 06/16/24 05:30 Blood Culture - Preliminary Blood
--- NOTE | 2024-06-20 12:58 | P.PN ---
Subjective Progress Note Date: 06/20/24 Patient is a 63-year-old female with past medical history significant for COPD, current ongoing tobacco dependence, SWEETIE, hypertension, hyperlipidemia, aortic aneurysm, hypothyroidism, GERD, migraines, breast cancer with previous bilateral mastectomy, gastric surgery, gastritis, recent laparoscopic hernia repair and lysis of adhesions, among other things. Primary care provider is Dr. Hugo Preston. Patient present to the emergency department yesterday afternoon with a chief complaint of progressively worsening shortness of breath over the last 2 weeks. Associated symptoms include nonproductive cough, high fevers, nausea, reduced appetite. States that her cough was productive last week with green phlegm, however, is now more nonproductive and persistent. She is currently reporting substernal chest pressure, nonradiating, rated 10/10, started approximately 15 minutes ago, worse with coughing and deep breathing. She denies any sick contacts. Does report history of COPD, not currently using any inhalers outpatient. Denies home O2. Continues to smoke 3 to 4 cigarettes/month. Does take Chantix on an outpatient basis. Workup in the ED included viral screening which was negative for influenza, RSV, COVID. Chest x- ray showing subtle patchy nodular opacities bilaterally. CBC remarkable for leukocytosis with a WBC count of 13.7. CMP is unremarkable. Patient was started on empiric antibiotics in the ED. Normal saline infusing at 75 ml/hr. Current most recent vitals: Temperature 98 F, heart rate 92 bpm, blood pressure 91/56 mmHg, SpO2 is 92% on 2 L/min nasal cannula. She is being evaluated in the emergency department room 16. She is alert and oriented. No signs of CO2 na rcosis. She does have a nonproductive cough. Denies home O2 use. The patient is seen today June 18, 2024 in follow-up on the regular medical floor. She is currently sitting up at the bedside. Awake and alert in no acute distress. She is maintaining good O2 saturations in the 90s on 3 L/min per nasal cannula. Her procalcitonin was negative at 0.14. Her ceftriaxone will be discontinued. Breathing easier today compared to yesterday. Culture revealing no growth. White count 15.5. Hemoglobin 11.2. Platelets 248. Sodium 138. Potassium 4.3. Bicarb 24. BUN 23. Creatinine 0.9. Glucose 168. She is continued on Symbicort, Singulair, DuoNeb inhalations, Solu-Medrol. Lovenox for DVT prophylaxis. The patient is seen today June 19, 2024 in follow-up on the regular medical floor. She is currently resting comfortably in bed. Awake and alert in no acute distress. Maintaining O2 saturations in the 90s on 4 L/min per nasal cannula. Normal saline at 75 mL/h. Her procalcitonin was negative at 0.07. Blood culture reveals no growth. She remains on DuoNeb and elations, Symbicort, prednisone. Lovenox for DVT prophylaxis. Robitussin for her cough. The patient is seen today June 20, 2024 in follow-up on the regular medical floor. She is currently resting comfortably in bed. Awake and alert in no acute distress. Maintaining O2 saturations in the 90s on 4 L/min per nasal cannula. She has normal saline at 75 mL/h. Blood culture revealed no growth. She remains on DuoNeb and elations, Symbicort, prednisone taper. Lovenox for DVT prophylaxis. Continued on Chantix. Objective - Vital Signs Vital signs: Vital Signs Temp 97.0 F L 06/20/24 07:42 Pulse 76 06/20/24 12:23 Resp 20 06/20/24 08:42 BP 153/98 06/20/24 07:42 Pulse Ox 93 L 06/20/24 09:00 FiO2 Intake & Output 06/19/24 06/20/24 06/20/24 18:59 06:59 18:59 Other: # Voids 1 2 1 - Exam GENERAL EXAM: Alert, 63-year-old female, resting comfortably in bed, on 3 L nasal cannula, in no apparent distress. HEAD: Normocephalic and atraumatic EYES: Normal reaction of pupils, equal size. NOSE: Clear with pink turbinates. THROAT: No erythema or exudates. NECK: No masses, no JVD. CHEST: No chest wall deformity. Bilateral mastectomy LUNGS: Equal air entry with faint expiratory wheezes and rhonchi bilaterally. CVS: S1 and S2 normal with no audible murmur, regular rhythm. No extra heart sounds ABDOMEN: No hepatosplenomegaly, active bowel sounds, no guarding or rigidity. SPINE: No scoliosis or deformity SKIN: No rashes CENTRAL NERVOUS SYSTEM: No focal deficits, tone is normal in all 4 extremities. EXTREMITIES: There is no peripheral edema, clubbing, or cyanosis. Peripheral pulses are intact. - Labs CBC & Chem 7: 06/18/24 05:23 06/18/24 05:23 Labs: Microbiology - Last 24 Hours (Table) 06/16/24 05:30 Blood Culture - Preliminary Blood Assessment and Plan Assessment: Acute COPD exacerbation, Chest x-ray showing subtle patchy nodular bilateral airspace opacities, however procalcitonin is negative. Acute hypoxemic respiratory failure, secondary to above Acute leukocytosis Chronic ongoing tobacco dependence, currently on Chantix, still smokes 3 to 4 cigarettes/month Hypertension History of hyperlipidemia History of aortic aneurysm History of hypothyroidism Obesity with BMI 33.3 kg/m2 History of sleeve gastrectomy History of gastritis History SWEETIE, no longer uses CPAP machine History of GERD History of chronic migraines History of breast cancer with bilateral mastectomy History of laparoscopic hernia repair with lysis of adhesions Plan: The patient was seen and evaluated Medications reviewed Evaluate for possible home oxygen Continued on Symbicort, Singulair, albuterol Complete a prednisone taper Continue on her Chantix Cleared for discharge from the pulmonary standpoint I have personally seen and examined the patient, performed the documentation and the assessment and plan as written. Number of minutes spent on the visit: 10 Dictation was produced using [employer] dictation software. Please excuse any grammatical, word or spelling errors. This patient was seen in coordination with the pulmonary/critical care physician, Dr. Akins. He did spend greater than 50% of the time evaluating, examining and developing the plan of care. He agrees to the above HPI, physical exam, assessment and plan of care as dictated by the nurse practitioner.
--- NOTE | 2024-06-20 13:14 | P.PN ---
Subjective Progress Note Date: 06/20/24 63-year-old female with past medical history significant for COPD not on home oxygen, history of hypertension, hyperlipidemia, obstructive sleep apnea, hypothyroidism, aortic aneurysm, history of left breast cancer with surgery in 2019, history of spinal stimulator, GERD who presented to ER with a worsening shortness breath cough nausea and headache. Patient reported that she was having shortness of breath for the last 2 weeks which started to get progressively worse for the last few days, patient also reported productive cough, nausea and headache also reported fever and chills. Patient reported h istory of COPD, does not use home oxygen. Patient denied any sore throat, runny nose, chest pain, palpitations, vomiting diarrhea constipation abdominal pain dysuria urgency frequency weakness or numbness of extremities. In the ED patient was afebrile, heart rate 92, respiratory rate 106/62, saturating 94% on room air. WBCs 13.7, hemoglobin 16.5, platelet 287. BMP was unremarkable except BUN 22, creatinine 1.17. LFTs unremarkable except alkaline phosphatase 177. Influenza RSV and COVID was negative. Chest x-ray showed small amount of patchy nodular opacities throughout the both lungs, new concerning for bilateral pneumonia. EKG showed sinus tachycardia, incomplete right bundle branch block, QTc 396. 06/17/24--patient was seen and examined today. Patient is afebrile, heart rate 67, respiratory rate 18, blood pressure soft 96/86, saturating 96% on 3 L. WBCs 18.7, hemoglobin 12.5, platelet 245. Sodium 139, potassium 5.1, BUN 23, creatinine 1.3. Patient complained of chest pain worse with cough, troponin negative. Blood culture negative so far. 06/18/24--patient was seen and examined today. Patient was very anxious, was complaining of chest pain, congestion, productive cough, chest pain worse with deep breaths and coughing, patient was very anxious and was crying in the room and stated that her productive cough, shortness of breath and congestion is worse today. Patient currently on 3 L oxygen, afebrile, heart rate 59, respiratory rate 18, blood pressure 100/68. WBCs 15.5, hemoglobin 11.2, platelet 248. BMP unremarkable. Blood cultures negative so far. On inhalers and bronchodilator protocol and prednisone. 06/19. Patient seen and examined. States she feels slightly better compared to yesterday. Still gets short of breath on exertion. 06/20. Patient seen and examined. Still complaining of shortness of breath. States she feels does not feel better REVIEW OF SYSTEMS: CONSTITUTIONAL: No fever, no malaise,. CARDIOVASCULAR: No chest pain, no palpitations, no syncope. PULMONARY: As mentioned above GASTROINTESTINAL: No diarrhea, no nausea, no vomiting, no abdominal pain. NEUROLOGICAL: No headaches, no weakness, PHYSICAL EXAMINATION: GENERAL: The patient is alert and oriented x3, ill looking HEENT: Pupils are round and equally reacting to light. EOMI. No scleral icterus. No conjunctival pallor. Normocephalic, atraumatic. No pharyngeal erythema. No thyromegaly. CARDIOVASCULAR: S1 and S2 present. No murmurs, rubs, or gallops. PULMONARY: Coarse breath sound bilaterally,, no wheezing or crackles. ABDOMEN: Soft, nontender, nondistended, normoactive bowel sounds. No palpable organomegaly. MUSCULOSKELETAL: No joint swelling or deformity. EXTREMITIES: No cyanosis, clubbing, or pedal edema. NEUROLOGICAL: Gross neurological examination did not reveal any focal deficits. SKIN: No rashes. Assessment and plan Acute hypoxic respiratory failure: Acute COPD exacerbation Bilateral pneumonia: Presented with worsening shortness of breath, productive cough, headache, nausea, fever and chills. Chest x-ray concerning for bilateral pneumonia Leukocytosis on presentation, saturating 87% on room air, required 2 L supplemental oxygen Continue inhalers/bronchodilator protocol, Solu-Medrol, incentive spirometry Rocephin and azithromycin initially, now discontinued per pulmonary as procalcitonin was -0.14. Pulmonary following PT and OT r following Hypertension: Hyperlipidemia: History of left breast cancer: History of migraine: History of sleeve gastrectomy Morbid obesity with BMI 33.3 Hypothyroidism Obstructive sleep apnea not on CPAP GERD Labs and medication were reviewed.. Continue same treatment. Continue with symptomatic treatment. Resume home medication. Monitor labs and vitals. DVT and GI prophylaxis. Further recommendations as per clinical course of the patient Dictation was produced using [employer] dictation software. please excuse any grammatical, word or spelling errors. Objective - Vital Signs Vital signs: Vital Signs Temp 97.0 F L 06/20/24 07:42 Pulse 76 06/20/24 12:23 Resp 20 06/20/24 08:42 BP 153/98 06/20/24 07:42 Pulse Ox 93 L 06/20/24 09:00 FiO2 Intake & Output 06/19/24 06/20/24 06/20/24 18:59 06:59 18:59 Other: # Voids 1 2 1 - Labs CBC & Chem 7: 06/18/24 05:23 06/18/24 05:23 Labs: Microbiology - Last 24 Hours (Table) 06/16/24 05:30 Blood Culture - Preliminary Blood
[2024-06-20] MEDS: ANASTROZOLE 1 MG TAB PO SCH (22:22)
--- NOTE | 2024-06-21 18:30 | P.PN ---
Subjective Progress Note Date: 06/21/24 Patient is a 63-year-old female with past medical history significant for COPD, current ongoing tobacco dependence, SWEETIE, hypertension, hyperlipidemia, aortic aneurysm, hypothyroidism, GERD, migraines, breast cancer with previous bilateral mastectomy, gastric surgery, gastritis, recent laparoscopic hernia repair and lysis of adhesions, among other things. Primary care provider is Dr. Hugo Preston. Patient present to the emergency department yesterday afternoon with a chief complaint of progressively worsening shortness of breath over the last 2 weeks. Associated symptoms include nonproductive cough, high fevers, nausea, reduced appetite. States that her cough was productive last week with green phlegm, however, is now more nonproductive and persistent. She is currently reporting substernal chest pressure, nonradiating, rated 10/10, started approximately 15 minutes ago, worse with coughing and deep breathing. She denies any sick contacts. Does report history of COPD, not currently using any inhalers outpatient. Denies home O2. Continues to smoke 3 to 4 cigarettes/month. Does take Chantix on an outpatient basis. Workup in the ED included viral screening which was negative for influenza, RSV, COVID. Chest x- ray showing subtle patchy nodular opacities bilaterally. CBC remarkable for leukocytosis with a WBC count of 13.7. CMP is unremarkable. Patient was started on empiric antibiotics in the ED. Normal saline infusing at 75 ml/hr. Current most recent vitals: Temperature 98 F, heart rate 92 bpm, blood pressure 91/56 mmHg, SpO2 is 92% on 2 L/min nasal cannula. She is being evaluated in the emergency department room 16. She is alert and oriented. No signs of CO2 n arcosis. She does have a nonproductive cough. Denies home O2 use. The patient is seen today June 18, 2024 in follow-up on the regular medical floor. She is currently sitting up at the bedside. Awake and alert in no acute distress. She is maintaining good O2 saturations in the 90s on 3 L/min per nasal cannula. Her procalcitonin was negative at 0.14. Her ceftriaxone will be discontinued. Breathing easier today compared to yesterday. Culture revealing no growth. White count 15.5. Hemoglobin 11.2. Platelets 248. Sodium 138. Potassium 4.3. Bicarb 24. BUN 23. Creatinine 0.9. Glucose 168. She is continued on Symbicort, Singulair, DuoNeb inhalations, Solu-Medrol. Lovenox for DVT prophylaxis. The patient is seen today June 19, 2024 in follow-up on the regular medical floor. She is currently resting comfortably in bed. Awake and alert in no acute distress. Maintaining O2 saturations in the 90s on 4 L/min per nasal cannula. Normal saline at 75 mL/h. Her procalcitonin was negative at 0.07. Blood culture reveals no growth. She remains on DuoNeb and elations, Symbicort, prednisone. Lovenox for DVT prophylaxis. Robitussin for her cough. The patient is seen today June 20, 2024 in follow-up on the regular medical floor. She is currently resting comfortably in bed. Awake and alert in no acute distress. Maintaining O2 saturations in the 90s on 4 L/min per nasal cannula. She has normal saline at 75 mL/h. Blood culture revealed no growth. She remains on DuoNeb and elations, Symbicort, prednisone taper. Lovenox for DVT prophylaxis. Continued on Chantix. On 06/21/2024, the patient is being seen for a follow-up. The patient is being treated for an acute COPD exacerbation. The patient is feeling slightly improved compared to yesterday. She remains on Symbicort. She remains on DuoNeb nebulized treatments [id number]. She is also on a prednisone burst taper starting with 40 mg p.o. daily. She is on Lovenox for DVT prophylaxis. Rest of the home medications have been resumed. No new labs are available from today. Noted her procalcitonin level was 0.14. Troponins were negative. The viral screen was also negative. The patient is a chronic smoker. Objective - Vital Signs Vital signs: Vital Signs Temp 97.2 F L 06/21/24 07:36 Pulse 68 06/21/24 12:29 Resp 15 06/21/24 07:36 BP 116/82 06/21/24 07:36 Pulse Ox 99 06/21/24 07:36 FiO2 Intake & Output 06/20/24 06/21/24 06/21/24 18:59 06:59 18:59 Other: Voiding Method Toilet # Voids 2 1 - Exam GENERAL EXAM: Alert, 63-year-old female, resting comfortably in bed, on 3 L nasal cannula, in no apparent distress. HEAD: Normocephalic and atraumatic EYES: Normal reaction of pupils, equal size. NOSE: Clear with pink turbinates. THROAT: No erythema or exudates. NECK: No masses, no JVD. CHEST: No chest wall deformity. Bilateral mastectomy LUNGS: Equal air entry with faint expiratory wheezes and rhonchi bilaterally. CVS: S1 and S2 normal with no audible murmur, regular rhythm. No extra heart sounds ABDOMEN: No hepatosplenomegaly, active bowel sounds, no guarding or rigidity. SPINE: No scoliosis or deformity SKIN: No rashes CENTRAL NERVOUS SYSTEM: No focal deficits, tone is normal in all 4 extremities. EXTREMITIES: There is no peripheral edema, clubbing, or cyanosis. Peripheral pulses are intact. - Labs CBC & Chem 7: 06/18/24 05:23 06/18/24 05:23 Labs: Microbiology - Last 24 Hours (Table) 06/16/24 05:30 Blood Culture - Final Blood Assessment and Plan Plan: Acute COPD exacerbation, Chest x-ray showing subtle patchy nodular bilateral airspace opacities, however procalcitonin is negative. Acute hypoxemic respiratory failure, secondary to above Acute leukocytosis Chronic ongoing tobacco dependence, currently on Chantix, still smokes 3 to 4 cigarettes/month Hypertension History of hyperlipidemia History of aortic aneurysm History of hypothyroidism Obesity with BMI 33.3 kg/m2 History of sleeve gastrectomy History of gastritis History SWEETIE, no longer uses CPAP machine History of GERD History of chronic migraines History of breast cancer with bilateral mastectomy History of laparoscopic hernia repair with lysis of adhesions Plan: Continues to be symptomatic and will continue same management Continued on Symbicort, Singulair, albuterol Complete a prednisone taper Continue on her Chantix Repeat chest x-ray in the morning We will continue to follow
--- NOTE | 2024-06-21 23:08 | P.PN ---
Subjective 63-year-old female with past medical history significant for COPD not on home oxygen, history of hypertension, hyperlipidemia, obstructive sleep apnea, hypothyroidism, aortic aneurysm, history of left breast cancer with surgery in 2019, history of spinal stimulator, GERD who presented to ER with a worsening shortness breath cough nausea and headache. Patient reported that she was having shortness of breath for the last 2 weeks which started to get progressively worse for the last few days, patient also reported productive cough, nausea and headache also reported fever and chills. Patient reported history of COPD, does not use home oxygen. Patient denied any sore throat, runny nose, chest pain, palpitations, vomiting diarrhea constipation abdominal pain dysuria urgency frequency weakness or numbness of extremities. In the ED patient was afebrile, heart rate 92, respiratory rate 106/62, saturating 94% on room air. WBCs 13.7, hemoglobin 16.5, platelet 287. BMP was unremarkable except BUN 22, creatinine 1.17. LFTs unremarkable except alkaline phosphatase 177. Influenza RSV and COVID was negative. Chest x-ray showed small amount of patchy nodular opacities throughout the both lungs, new concerning for bilateral pneumonia. EKG showed sinus tachycardia, incomplete right bundle branch block, QTc 396. 06/17/24--patient was seen and examined today. Patient is afebrile, heart rate 67, respiratory rate 18, blood pressure soft 96/86, saturating 96% on 3 L. WBCs 18.7, hemoglobin 12.5, platelet 245. Sodium 139, potassium 5.1, BUN 23, creatinine 1.3. Patient complained of chest pain worse with cough, troponin negative. Blood culture negative so far. 06/18/24--patient was seen and examined today. Patient was very anxious, was complaining of chest pain, congestion, productive cough, chest pain worse with deep breaths and coughing, patient was very anxious and was crying in the room and stated that her productive cough, shortness of breath and congestion is worse today. Patient currently on 3 L oxygen, afebrile, heart rate 59, respiratory rate 18, blood pressure 100/68. WBCs 15.5, hemoglobin 11.2, platelet 248. BMP unremarkable. Blood cultures negative so far. On inhalers and bronchodilator protocol and prednisone. 06/19. Patient seen and examined. States she feels slightly better compared to yesterday. Still gets short of breath on exertion. 06/20. Patient seen and examined. Still complaining of shortness of breath. States she feels does not feel better 06/21 Patient is still complaining from some dyspnea and wheezing She still also have COVID Currently she is on small dose of oxygen via nasal cannula, 3 L/min At home she is not on oxygen Objective - Vital Signs Vital signs: Vital Signs Temp 97.2 F L 06/21/24 07:36 Pulse 68 06/21/24 12:29 Resp 15 06/21/24 07:36 BP 116/82 06/21/24 07:36 Pulse Ox 99 06/21/24 07:36 FiO2 Intake & Output 06/20/24 06/21/24 06/21/24 18:59 06:59 18:59 Other: Voiding Method Toilet # Voids 2 1 - Exam GENERAL: The patient is alert and oriented x3, not in any acute distress. Well developed, well nourished. HEENT: Pupils are round and equally reacting to light. EOMI. No scleral icterus. No conjunctival pallor. Normocephalic, atraumatic. No pharyngeal erythema. No thyromegaly. CARDIOVASCULAR: S1 and S2 present. No murmurs, rubs, or gallops. -PULMONARY: Chest is clear to auscultation, bilateral scattered wheezing , no crackles. ABDOMEN: Soft, nontender, nondistended, normoactive bowel sounds. No palpable organomegaly. MUSCULOSKELETAL: No joint swelling or deformity. EXTREMITIES: No cyanosis, clubbing, or pedal edema. NEUROLOGICAL: Gross neurological examination did not reveal any focal deficits. SKIN: No rashes. no petechiae. - Labs CBC & Chem 7: 06/18/24 05:23 06/18/24 05:23 Labs: Microbiology - Last 24 Hours (Table) 06/16/24 05:30 Blood Culture - Final Blood Assessment and Plan Assessment: Acute COPD exacerbation Acute hypoxic respiratory failure Acute leukocytosis 1 regular disease requires follow-up Obesity with BMI of 33.3 Plan: Continue with oral prednisone Patient breathing is better Continue Singulair propranolol Pulmonary team consult Labs and medication were reviewed.. Continue same treatment. Continue with symptomatic treatment. Resume home medication. Monitor labs and vitals. DVT and GI prophylaxis. Further recommendations as per clinical course of the patient DVT prophylaxis: Subcutaneous Lovenox GI Prophylaxis: Pepcid PT/OT: Pending Prognosis is guarded
--- NOTE | 2024-06-22 07:26 | XR ---
EXAMINATION TYPE: XR chest 1V DATE OF EXAM: 06/22/2024 COMPARISON: NONE CLINICAL INDICATION: Female, 63 years old with history of COPD, dyspnea; TECHNIQUE: Single frontal view of the chest is obtained. FINDINGS: Spinal stimulator ray centered along the mid to lower thoracic spinal canal. The heart is upper limits of normal in size. Mild interstitial density persists. New small left pleur al effusion with adjacent left basilar opacity. IMPRESSION: 1. Ongoing mild diffuse interstitial density. 2. New small left pleural effusion with adjacent atelectasis and/or consolidation. [facility], Workstation: [email or web address], 06/22/2024 7:24 AM
--- NOTE | 2024-06-22 11:10 | P.PN ---
Subjective 63-year-old female with past medical history significant for COPD not on home oxygen, history of hypertension, hyperlipidemia, obstructive sleep apnea, hypothyroidism, aortic aneurysm, history of left breast cancer with surgery in 2019, history of spinal stimulator, GERD who presented to ER with a worsening shortness breath cough nausea and headache. Patient reported that she was having shortness of breath for the last 2 weeks which started to get progressively worse for the last few days, patient also reported productive cough, nausea and headache also reported fever and chills. Patient reported history of COPD, does not use home oxygen. Patient denied any sore throat, runny nose, chest pain, palpitations, vomiting diarrhea constipation abdominal pain dysuria urgency frequency weakness or numbness of extremities. In the ED patient was afebrile, heart rate 92, respiratory rate 106/62, saturating 94% on room air. WBCs 13.7, hemoglobin 16.5, platelet 287. BMP was unremarkable except BUN 22, creatinine 1.17. LFTs unremarkable except alkaline phosphatase 177. Influenza RSV and COVID was negative. Chest x-ray showed small amount of patchy nodular opacities throughout the both lungs, new concerning for bilateral pneumonia. EKG showed sinus tachycardia, incomplete right bundle branch block, QTc 396. 06/17/24--patient was seen and examined today. Patient is afebrile, heart rate 67, respiratory rate 18, blood pressure soft 96/86, saturating 96% on 3 L. WBCs 18.7, hemoglobin 12.5, platelet 245. Sodium 139, potassium 5.1, BUN 23, creatinine 1.3. Patient complained of chest pain worse with cough, troponin negative. Blood culture negative so far. 06/18/24--patient was seen and examined today. Patient was very anxious, was complaining of chest pain, congestion, productive cough, chest pain worse with deep breaths and coughing, patient was very anxious and was crying in the room and stated that her productive cough, shortness of breath and congestion is worse today. Patient currently on 3 L oxygen, afebrile, heart rate 59, respiratory rate 18, blood pressure 100/68. WBCs 15.5, hemoglobin 11.2, platelet 248. BMP unremarkable. Blood cultures negative so far. On inhalers and bronchodilator protocol and prednisone. 06/19. Patient seen and examined. States she feels slightly better compared to yesterday. Still gets short of breath on exertion. 06/20. Patient seen and examined. Still complaining of shortness of breath. States she feels does not feel better 06/21 Patient is still complaining from some dyspnea and wheezing She still also have COVID Currently she is on small dose of oxygen via nasal cannula, 3 L/min At home she is not on oxygen 06/22 Patient is still coughing and she still have breathing difficulty with some scattered wheezing and coarse crepitations Repeat chest x-ray today showing possible left small pleural effusion , I reviewed the chest x-ray by myself., Which is the same impression of the radiologist Pro- Calcitonin was negative on admission, we requested another 1 Continue with the steroids, continue with Robitussin Add incentive spirometer Review of systems CONSTITUTIONAL: No fever, no malaise, no fatigue. HEENT: No recent visual problems or hearing problems. Denied any sore throat. bowel sounds. NEUROLOGICAL: No headaches, no weakness, no numbness. HEMATOLOGICAL: Denies any bleeding or petechiae. GENITOURINARY: Denies any burning micturition, frequency, or urgency. MUSCULOSKELETAL/RHEUMATOLOGICAL: Denies any joint pain, swelling, or any muscle pain. ENDOCRINE: Denies any polyuria or polydipsia. Active Medications Generic Name Dose Route Start Last Admin Trade Name Freq PRN Reason Stop Dose Admin Acetaminophen 650 mg 06/16/24 04:46 06/19/24 05:45 Acetaminophen Tab 325 Mg Tab PO 650 mg Q4HR PRN Administration Mild Pain or Fever > 100.5 Acetaminophen/Butalbital/Caffeine 1 each 06/16/24 14:27 06/17/24 10:58 Butalb/Apap/Caff 50-325-40mg Tab PO 1 each BID PRN Administration Migraine Headache Hydrocodone Bitart/Acetaminophen 1 each 06/16/24 14:27 06/22/24 08:58 Hydrocodone/Apap 5-325mg 1 Each Tab PO 1 each Q6HR PRN Administration Pain Albuterol/Ipratropium 3 ml 06/16/24 04:46 06/17/24 04:00 Ipratropium-Albuterol 3 Ml Neb INHALATION 3 ml RT-Q2H PRN Administration Shortness Of Breath Or Wheezing Albuterol/Ipratropium 3 ml 06/16/24 08:00 06/22/24 08:05 Ipratropium-Albuterol 3 Ml Neb INHALATION 3 ml RT-QID FLORES Administration Anastrozole 1 mg 06/20/24 21:00 06/21/24 20:26 Anastrozole 1 Mg Tab PO 1 mg HS FLORES Administration Atorvastatin Calcium 10 mg 06/16/24 16:00 06/21/24 20:24 Atorvastatin 10 Mg Tab PO 10 mg HS FLORES Administration Baclofen 10 mg 06/16/24 21:00 06/22/24 08:58 Baclofen 10 Mg Tab PO 10 mg BID FLORES Administration Budesonide/Formoterol Fumarate 2 puff 06/16/24 20:00 06/22/24 08:05 Symbicort 160-4.5 Mcg Inhaler INHALATION 2 puff RT-BID FLORES Administration Cyclobenzaprine HCl 10 mg 06/16/24 16:00 06/22/24 08:58 Cyclobenzaprine 10 Mg Tab PO 10 mg BID FLORES Administration Doxazosin Mesylate 1 mg 06/17/24 09:00 06/22/24 08:58 Doxazosin 1 Mg Tab PO 1 mg DAILY FLORES Administration Enoxaparin Sodium 40 mg 06/16/24 14:45 06/22/24 08:58 Enoxaparin 40 Mg/0.4 Ml Syringe SQ 40 mg DAILY FLORES Administration Guaifenesin/Dextromethorphan 10 ml 06/22/24 12:00 Guaifenesin-Dm 100-10mg/5ml 10 Ml Cup PO 06/25/24 11:59 Q6HR FLORES Hydromorphone HCl 0.5 mg 06/16/24 06:47 06/21/24 23:41 Hydromorphone 0.5 Mg/0.5 Ml Syringe IVP 0.5 mg Q4HR PRN Administration Moderate to Severe Pain (4-10) Levothyroxine Sodium 112 mcg 06/17/24 06:30 06/22/24 05:58 Levothyroxine 112 Mcg Tab PO 112 mcg DAILY@0630 FLORES Administration Meclizine HCl 25 mg 06/16/24 21:00 06/22/24 08:58 Meclizine 25 Mg Tab PO 25 mg BID FLORES Administration Montelukast Sodium 10 mg 06/16/24 21:00 06/21/24 20:26 Montelukast 10 Mg Tab PO 10 mg HS FLORES Administration Naloxone HCl 0.2 mg 06/16/24 04:46 Naloxone 0.4 Mg/Ml 1 Ml Vial IVP Q2M PRN Opioid Reversal Ondansetron HCl 4 mg 06/17/24 22:03 06/21/24 06:11 Ondansetron 4 Mg/2 Ml Vial IVP 4 mg Q6HR PRN Administration Nausea And Vomiting Pantoprazole Sodium 40 mg 06/17/24 07:30 06/22/24 05:58 Pantoprazole 40 Mg Tablet PO 40 mg [id number] FLORES Administration Prednisone 40 mg 06/19/24 09:00 06/22/24 08:57 Prednisone 20 Mg Tab PO 40 mg DAILY FLORES Administration Propranolol HCl 80 mg 06/16/24 14:30 06/22/24 08:58 Propranolol [place] 80 Mg Cap.Sa.24h PO 80 mg DAILY FLORES Administration Ropinirole HCl 4 mg 06/16/24 21:00 06/21/24 20:24 Ropinirole Hcl 4 Mg Tablet PO 4 mg HS FLORES Administration Sodium Chloride 2 spray 06/17/24 03:00 06/17/24 04:19 Sodium Chloride 0.65% Nasal [place] 44 Ml Btl NASAL 2 spray QID PRN Administration Dry Nasal Passages Trazodone HCl 100 mg 06/16/24 21:00 06/21/24 20:25 Trazodone Hcl 100 Mg Tab PO 100 mg HS FLORES Administration Varenicline 1 mg 06/17/24 09:00 06/22/24 08:58 Varenicline 1 Mg Tab PO 1 mg DAILY FLORES Administration Objective - Vital Signs Vital signs: Vital Signs Temp 97.7 F 06/22/24 07:15 Pulse 96 06/22/24 08:18 Resp 18 06/22/24 08:18 BP 104/64 06/22/24 08:38 Pulse Ox 96 06/22/24 08:06 FiO2 Intake & Output 06/21/24 06/22/24 06/22/24 18:59 06:59 18:59 Intake Total 1000 540 Balance 1000 540 Intake: Oral 1000 540 Other: Voiding Method Toilet # Voids 2 2 - Exam GENERAL: The patient is alert and oriented x3, not in any acute distress. Well developed, well nourished. HEENT: Pupils are round and equally reacting to light. EOMI. No scleral icterus. No conjunctival pallor. Normocephalic, atraumatic. No pharyngeal erythema. No thyromegaly. CARDIOVASCULAR: S1 and S2 present. No murmurs, rubs, or gallops. -PULMONARY: Chest is clear to auscultation, bilateral scattered wheezing , no crackles. ABDOMEN: Soft, nontender, nondistended, normoactive bowel sounds. No palpable organomegaly. MUSCULOSKELETAL: No joint swelling or deformity. EXTREMITIES: No cyanosis, clubbing, or pedal edema. NEUROLOGICAL: Gross neurological examination did not reveal any focal deficits. SKIN: No rashes. no petechiae. - Labs CBC & Chem 7: 06/18/24 05:23 06/18/24 05:23 Labs: Microbiology - Last 24 Hours (Table) 06/16/24 05:30 Blood Culture - Final Blood Assessment and Plan Assessment: Acute COPD exacerbation Acute hypoxic respiratory failure left lower Pleural effusion with adjacent atelectasis versus consolidation Acute leukocytosis 1 regular disease requires follow-up Obesity with BMI of 33.3 Plan: Continue with oral prednisone Patient breathing is better Continue Singulair propranolol Pulmonary team consult Recheck pro- Calcitonin Labs and medication were reviewed.. Continue same treatment. Continue with symptomatic treatment. Resume home medication. Monitor labs and vitals. DVT and GI prophylaxis. Further recommendations as per clinical course of the patie nt DVT prophylaxis: Subcutaneous Lovenox GI Prophylaxis: Pepcid PT/OT: Pending Prognosis is guarded
[2024-06-22] MEDS: guaiFENesin-DM 100-10MG/5ML 10 ML CUP PO SCH (12:50)
--- NOTE | 2024-06-22 22:32 | P.PN ---
Subjective Progress Note Date: 06/22/24 Patient is a 63-year-old female with past medical history significant for COPD, current ongoing tobacco dependence, SWEETIE, hypertension, hyperlipidemia, aortic aneurysm, hypothyroidism, GERD, migraines, breast cancer with previous bilateral mastectomy, gastric surgery, gastritis, recent laparoscopic hernia repair and lysis of adhesions, among other things. Primary care provider is Dr. Hugo Preston. Patient present to the emergency department yesterday afternoon with a chief complaint of progressively worsening shortness of breath over the last 2 weeks. Associated symptoms include nonproductive cough, high fevers, nausea, reduced appetite. States that her cough was productive last week with green phlegm, however, is now more nonproductive and persistent. She is currently reporting substernal chest pressure, nonradiating, rated 10/10, started approximately 15 minutes ago, worse with coughing and deep breathing. She denies any sick contacts. Does report history of COPD, not currently using any inhalers outpatient. Denies home O2. Continues to smoke 3 to 4 cigarettes/month. Does take Chantix on an outpatient basis. Workup in the ED included viral screening which was negative for influenza, RSV, COVID. Chest x- ray showing subtle patchy nodular opacities bilaterally. CBC remarkable for leukocytosis with a WBC count of 13.7. CMP is unremarkable. Patient was started on empiric antibiotics in the ED. Normal saline infusing at 75 ml/hr. Current most recent vitals: Temperature 98 F, heart rate 92 bpm, blood pressure 91/56 mmHg, SpO2 is 92% on 2 L/min nasal cannula. She is being evaluated in the emergency department room 16. She is alert and oriented. No signs of CO2 n arcosis. She does have a nonproductive cough. Denies home O2 use. The patient is seen today June 18, 2024 in follow-up on the regular medical floor. She is currently sitting up at the bedside. Awake and alert in no acute distress. She is maintaining good O2 saturations in the 90s on 3 L/min per nasal cannula. Her procalcitonin was negative at 0.14. Her ceftriaxone will be discontinued. Breathing easier today compared to yesterday. Culture revealing no growth. White count 15.5. Hemoglobin 11.2. Platelets 248. Sodium 138. Potassium 4.3. Bicarb 24. BUN 23. Creatinine 0.9. Glucose 168. She is continued on Symbicort, Singulair, DuoNeb inhalations, Solu-Medrol. Lovenox for DVT prophylaxis. The patient is seen today June 19, 2024 in follow-up on the regular medical floor. She is currently resting comfortably in bed. Awake and alert in no acute distress. Maintaining O2 saturations in the 90s on 4 L/min per nasal cannula. Normal saline at 75 mL/h. Her procalcitonin was negative at 0.07. Blood culture reveals no growth. She remains on DuoNeb and elations, Symbicort, prednisone. Lovenox for DVT prophylaxis. Robitussin for her cough. The patient is seen today June 20, 2024 in follow-up on the regular medical floor. She is currently resting comfortably in bed. Awake and alert in no acute distress. Maintaining O2 saturations in the 90s on 4 L/min per nasal cannula. She has normal saline at 75 mL/h. Blood culture revealed no growth. She remains on DuoNeb and elations, Symbicort, prednisone taper. Lovenox for DVT prophylaxis. Continued on Chantix. On 06/21/2024, the patient is being seen for a follow-up. The patient is being treated for an acute COPD exacerbation. The patient is feeling slightly improved compared to yesterday. She remains on Symbicort. She remains on DuoNeb nebulized treatments [id number]. She is also on a prednisone burst taper starting with 40 mg p.o. daily. She is on Lovenox for DVT prophylaxis. Rest of the home medications have been resumed. No new labs are available from today. Noted her procalcitonin level was 0.14. Troponins were negative. The viral screen was also negative. The patient is a chronic smoker. On 06/22/2024, the patient is being seen for a follow-up. Continues to be symptomatic and wheezy and short of breath and continues to cough. A follow-up chest x-ray was obtained this morning and it shows small left-sided pleural effusion with adjacent atelectasis and ongoing mild increase in interstitial densities bilaterally. The patient otherwise has no new complaints. [facility] ient remains on oxygen at 3.5 L/min nasal cannula with a pulse ox of 97%. The patient remains on DuoNeb the regiment [id number], Symbicort, prednisone currently at 40 mg p.o. daily as part of a burst taper. Remains on Lovenox for DVT prophylaxis. No new labs are available from today. Viral 4 Plex at time of admission was negative. Objective - Vital Signs Vital signs: Vital Signs Temp 97.7 F 06/22/24 19:11 Pulse 69 06/22/24 21:07 Resp 18 06/22/24 20:22 BP 129/65 06/22/24 19:11 Pulse Ox 97 06/22/24 19:11 FiO2 Intake & Output 06/22/24 06/22/24 06/23/24 06:59 18:59 06:59 Intake Total 540 Balance 540 Intake: Oral 540 Other: Voiding Method Toilet Toilet # Voids 2 3 # Bowel Movements 1 - Exam GENERAL EXAM: Alert, 63-year-old female, resting comfortably in bed, on 3 L nasal cannula, in no apparent distress. HEAD: Normocephalic and atraumatic EYES: Normal reaction of pupils, equal size. NOSE: Clear with pink turbinates. THROAT: No erythema or exudates. NECK: No masses, no JVD. CHEST: No chest wall deformity. Bilateral mastectomy LUNGS: Equal air entry with faint expiratory wheezes and rhonchi bilaterally. CVS: S1 and S2 normal with no audible murmur, regular rhythm. No extra heart sounds ABDOMEN: No hepatosplenomegaly, active bowel sounds, no guarding or rigidity. SPINE: No scoliosis or deformity SKIN: No rashes CENTRAL NERVOUS SYSTEM: No focal deficits, tone is normal in all 4 extremities. EXTREMITIES: There is no peripheral edema, clubbing, or cyanosis. Peripheral pulses are intact. - Labs CBC & Chem 7: 06/18/24 05:23 06/18/24 05:23 Assessment and Plan Plan: Acute COPD exacerbation, Chest x-ray showing subtle patchy nodular bilateral airspace opacities, however procalcitonin is negative. Acute hypoxemic respiratory failure, secondary to above, currently on 3.5 L/min nasal cannula Acute leukocytosis Chronic ongoing tobacco dependence, currently on Chantix, still smokes 3 to 4 cigarettes/month Hypertension History of hyperlipidemia History of aortic aneurysm History of hypothyroidism Obesity with BMI 33.3 kg/m2 History of sleeve gastrectomy History of gastritis History SWEETIE, no longer uses CPAP machine History of GERD History of chronic migraines History of breast cancer with bilateral mastectomy History of laparoscopic hernia repair with lysis of adhesions Plan: Continues to be symptomatic and will continue same management Continued on Symbicort, Singulair, albuterol Complete a prednisone taper Continue on her Chantix Repeat chest x-ray in the morning, it shows a small left-sided pleural effusion. Otherwise no active disease or consolidations. We will continue to follow
[2024-06-23 11:26] VITALS: BMI 33.3
--- NOTE | 2024-06-23 11:41 | P.PN ---
Subjective 63-year-old female with past medical history significant for COPD not on home oxygen, history of hypertension, hyperlipidemia, obstructive sleep apnea, hypothyroidism, aortic aneurysm, history of left breast cancer with surgery in 2019, history of spinal stimulator, GERD who presented to ER with a worsening shortness breath cough nausea and headache. Patient reported that she was having shortness of breath for the last 2 weeks which started to get progressively worse for the last few days, patient also reported productive cough, nausea and headache also reported fever and chills. Patient reported history of COPD, does not use home oxygen. Patient denied any sore throat, runny nose, chest pain, palpitations, vomiting diarrhea constipation abdominal pain dysuria urgency frequency weakness or numbness of extremities. In the ED patient was afebrile, heart rate 92, respiratory rate 106/62, saturating 94% on room air. WBCs 13.7, hemoglobin 16.5, platelet 287. BMP was unremarkable except BUN 22, creatinine 1.17. LFTs unremarkable except alkaline phosphatase 177. Influenza RSV and COVID was negative. Chest x-ray showed small amount of patchy nodular opacities throughout the both lungs, new concerning for bilateral pneumonia. EKG showed sinus tachycardia, incomplete right bundle branch block, QTc 396. 06/17/24--patient was seen and examined today. Patient is afebrile, heart rate 67, respiratory rate 18, blood pressure soft 96/86, saturating 96% on 3 L. WBCs 18.7, hemoglobin 12.5, platelet 245. Sodium 139, potassium 5.1, BUN 23, creatinine 1.3. Patient complained of chest pain worse with cough, troponin negative. Blood culture negative so far. 06/18/24--patient was seen and examined today. Patient was very anxious, was complaining of chest pain, congestion, productive cough, chest pain worse with deep breaths and coughing, patient was very anxious and was crying in the room and stated that her productive cough, shortness of breath and congestion is worse today. Patient currently on 3 L oxygen, afebrile, heart rate 59, respiratory rate 18, blood pressure 100/68. WBCs 15.5, hemoglobin 11.2, platelet 248. BMP unremarkable. Blood cultures negative so far. On inhalers and bronchodilator protocol and prednisone. 06/19. Patient seen and examined. States she feels slightly better compared to yesterday. Still gets short of breath on exertion. 06/20. Patient seen and examined. Still complaining of shortness of breath. States she feels does not feel better 06/21 Patient is still complaining from some dyspnea and wheezing She still also have COVID Currently she is on small dose of oxygen via nasal cannula, 3 L/min At home she is not on oxygen 06/22 Patient is still coughing and she still have breathing difficulty with some scattered wheezing and coarse crepitations Repeat chest x-ray today showing possible left small pleural effusion , I reviewed the chest x-ray by myself., Which is the same impression of the radiologist Pro- Calcitonin was negative on admission, we requested another 1 Continue with the steroids, continue with Robitussin Add incentive spirometer 06/23 pt is still has some wheezing, and coughing although it is better Patient had chest x-ray yesterday showing mild left pleural effusion with chronic COPD changes No other new complaint Patient states that she wants to be discharged home tomorrow Will continue to follow Objective - Vital Signs Vital signs: Vital Signs Temp 97.6 F 06/23/24 07:09 Pulse 72 06/23/24 09:01 Resp 16 06/23/24 07:09 BP 102/70 06/23/24 07:09 Pulse Ox 91 L 06/23/24 07:09 FiO2 Intake & Output 06/22/24 06/23/24 06/23/24 18:59 06:59 18:59 Intake Total 797 Balance 797 Intake: Oral 797 Other: Voiding Method Toilet # Voids 3 2 # Bowel Movements 1 - Exam GENERAL: The patient is alert and oriented x3, not in any acute distress. Well developed, well nourished. HEENT: Pupils are round and equally reacting to light. EOMI. No scleral icterus. No conjunctival pallor. Normocephalic, atraumatic. No pharyngeal erythema. No thyromegaly. CARDIOVASCULAR: S1 and S2 present. No murmurs, rubs, or gallops. -PULMONARY: Chest is clear to auscultation, bilateral scattered wheezing , no crackles. ABDOMEN: Soft, nontender, nondistended, normoactive bowel sounds. No palpable organomegaly. MUSCULOSKELETAL: No joint swelling or deformity. EXTREMITIES: No cyanosis, clubbing, or pedal edema. NEUROLOGICAL: Gross neurological examination did not reveal any focal deficits. SKIN: No rashes. no petechiae. - Labs CBC & Chem 7: 06/18/24 05:23 06/18/24 05:23 Assessment and Plan Assessment: Acute COPD exacerbation Acute hypoxic respiratory failure left lower Pleural effusion with adjacent atelectasis versus consolidation Acute leukocytosis 1 regular disease requires follow-up Obesity with BMI of 33.3 Plan: Continue with oral prednisone Patient breathing is better Continue Singulair propranolol Pulmonary team consult Recheck pro- Calcitonin Labs and medication were reviewed.. Continue same treatment. Continue with symptomatic treatment. Resume home medication. Monitor labs and vitals. DVT and GI prophylaxis. Further recommendations as per clinical course of the patient DVT prophylaxis: Subcutaneous Lovenox GI Prophylaxis: Pepcid PT/OT: Pending Prognosis is guarded
--- NOTE | 2024-06-23 14:26 | P.PN ---
Subjective Progress Note Date: 06/23/24 Patient is a 63-year-old female with past medical history significant for COPD, current ongoing tobacco dependence, SWEETIE, hypertension, hyperlipidemia, aortic aneurysm, hypothyroidism, GERD, migraines, breast cancer with previous bilateral mastectomy, gastric surgery, gastritis, recent laparoscopic hernia repair and lysis of adhesions, among other things. Primary care provider is Dr. Hugo Preston. Patient present to the emergency department yesterday afternoon with a chief complaint of progressively worsening shortness of breath over the last 2 weeks. Associated symptoms include nonproductive cough, high fevers, nausea, reduced appetite. States that her cough was productive last week with green phlegm, however, is now more nonproductive and persistent. She is currently reporting substernal chest pressure, nonradiating, rated 10/10, started approximately 15 minutes ago, worse with coughing and deep breathing. She denies any sick contacts. Does report history of COPD, not currently using any inhalers outpatient. Denies home O2. Continues to smoke 3 to 4 cigarettes/month. Does take Chantix on an outpatient basis. Workup in the ED included viral screening which was negative for influenza, RSV, COVID. Chest x- ray showing subtle patchy nodular opacities bilaterally. CBC remarkable for leukocytosis with a WBC count of 13.7. CMP is unremarkable. Patient was started on empiric antibiotics in the ED. Normal saline infusing at 75 ml/hr. Current most recent vitals: Temperature 98 F, heart rate 92 bpm, blood pressure 91/56 mmHg, SpO2 is 92% on 2 L/min nasal cannula. She is being evaluated in the emergency department room 16. She is alert and oriented. No signs of CO2 n arcosis. She does have a nonproductive cough. Denies home O2 use. The patient is seen today June 18, 2024 in follow-up on the regular medical floor. She is currently sitting up at the bedside. Awake and alert in no acute distress. She is maintaining good O2 saturations in the 90s on 3 L/min per nasal cannula. Her procalcitonin was negative at 0.14. Her ceftriaxone will be discontinued. Breathing easier today compared to yesterday. Culture revealing no growth. White count 15.5. Hemoglobin 11.2. Platelets 248. Sodium 138. Potassium 4.3. Bicarb 24. BUN 23. Creatinine 0.9. Glucose 168. She is continued on Symbicort, Singulair, DuoNeb inhalations, Solu-Medrol. Lovenox for DVT prophylaxis. The patient is seen today June 19, 2024 in follow-up on the regular medical floor. She is currently resting comfortably in bed. Awake and alert in no acute distress. Maintaining O2 saturations in the 90s on 4 L/min per nasal cannula. Normal saline at 75 mL/h. Her procalcitonin was negative at 0.07. Blood culture reveals no growth. She remains on DuoNeb and elations, Symbicort, prednisone. Lovenox for DVT prophylaxis. Robitussin for her cough. The patient is seen today June 20, 2024 in follow-up on the regular medical floor. She is currently resting comfortably in bed. Awake and alert in no acute distress. Maintaining O2 saturations in the 90s on 4 L/min per nasal cannula. She has normal saline at 75 mL/h. Blood culture revealed no growth. She remains on DuoNeb and elations, Symbicort, prednisone taper. Lovenox for DVT prophylaxis. Continued on Chantix. On 06/21/2024, the patient is being seen for a follow-up. The patient is being treated for an acute COPD exacerbation. The patient is feeling slightly improved compared to yesterday. She remains on Symbicort. She remains on DuoNeb nebulized treatments [id number]. She is also on a prednisone burst taper starting with 40 mg p.o. daily. She is on Lovenox for DVT prophylaxis. Rest of the home medications have been resumed. No new labs are available from today. Noted her procalcitonin level was 0.14. Troponins were negative. The viral screen was also negative. The patient is a chronic smoker. On 06/22/2024, the patient is being seen for a follow-up. Continues to be symptomatic and wheezy and short of breath and continues to cough. A follow-up chest x-ray was obtained this morning and it shows small left-sided pleural effusion with adjacent atelectasis and ongoing mild increase in interstitial densities bilaterally. The patient otherwise has no new complaints. The [facility] remains on oxygen at 3.5 L/min nasal cannula with a pulse ox of 97%. The patient remains on DuoNeb the regiment [id number], Symbicort, prednisone currently at 40 mg p.o. daily as part of a burst taper. Remains on Lovenox for DVT prophylaxis. No new labs are available from today. Viral 4 Plex at time of admission was negative. 06/23/2024, the patient is feeling better. She states that she may need another day of treatment. Noted she is on DuoNeb updrafts. She is on Symbicort and she is already on a prednisone burst taper. Cough and congestion is improved compared to yesterday. No new labs are available from today. She remains on oxygen 3 L with a pulse ox of 94%. No new complaints otherwise. Objective - Vital Signs Vital signs: Vital Signs Temp 97.6 F 06/23/24 07:09 Pulse 72 06/23/24 09:01 Resp 16 06/23/24 07:09 BP 102/70 06/23/24 07:09 Pulse Ox 91 L 06/23/24 07:09 FiO2 Intake & Output 06/22/24 06/23/24 06/23/24 18:59 06:59 18:59 Intake Total 797 Balance 797 Weight 90.718 kg Intake: Oral 797 Other: Voiding Method Toilet # Voids 3 2 # Bowel Movements 1 - Exam GENERAL EXAM: Alert, 63-year-old female, resting comfortably in bed, on 3 L nasal cannula, in no apparent distress. HEAD: Normocephalic and atraumatic EYES: Normal reaction of pupils, equal size. NOSE: Clear with pink turbinates. THROAT: No erythema or exudates. NECK: No masses, no JVD. CHEST: No chest wall deformity. Bilateral mastectomy LUNGS: Equal air entry with faint expiratory wheezes and rhonchi bilaterally. CVS: S1 and S2 normal with no audible murmur, regular rhythm. No extra heart sounds ABDOMEN: No hepatosplenomegaly, active bowel sounds, no guarding or rigidity. SPINE: No scoliosis or deformity SKIN: No rashes CENTRAL NERVOUS SYSTEM: No focal deficits, tone is normal in all 4 extremities. EXTREMITIES: There is no peripheral edema, clubbing, or cyanosis. Peripheral pulses are intact. - Labs CBC & Chem 7: 06/18/24 05:23 06/18/24 05:23 Assessment and Plan Plan: Acute COPD exacerbation, Chest x-ray showing subtle patchy nodular bilateral airspace opacities, however procalcitonin is negative. Acute hypoxemic respiratory failure, secondary to above, currently on 3.5 L/min nasal cannula Acute leukocytosis Chronic ongoing tobacco dependence, currently on Chantix, still smokes 3 to 4 cigarettes/month Hypertension History of hyperlipidemia History of aortic aneurysm History of hypothyroidism Obesity with BMI 33.3 kg/m2 History of sleeve gastrectomy History of gastritis History SWEETIE, no longer uses CPAP machine History of GERD History of chronic migraines History of breast cancer with bilateral mastectomy History of laparoscopic hernia repair with lysis of adhesions Plan: Clinically improved compared to yesterday Will continue same treatment Continued on Symbicort, Singulair, albuterol Complete a prednisone taper, start at a dose of 40 mg p.o. daily Continue on her Chantix Repeat chest x-ray from yesterday, it shows a small left-sided pleural effusion. Otherwise no active disease or consolidations. Will give the patient a dose of Lasix 40 mg IV push We will continue to follow
[2024-06-23] MEDS: FUROSEMIDE 10 MG/ML 4 ML VIAL IV STA (14:50)
[2024-06-24 08:32] VITALS: RESP 17
[2024-06-24 14:00] VITALS: PULSE 65
[2024-06-24 14:23] VITALS: BP 90/57; TEMP 97.9
--- NOTE | 2024-06-24 17:49 | P.PN ---
Subjective Progress Note Date: 06/24/24 Patient is a 63-year-old female with past medical history significant for COPD, current ongoing tobacco dependence, SWEETIE, hypertension, hyperlipidemia, aortic aneurysm, hypothyroidism, GERD, migraines, breast cancer with previous bilateral mastectomy, gastric surgery, gastritis, recent laparoscopic hernia repair and lysis of adhesions, among other things. Primary care provider is Dr. Hugo Preston. Patient present to the emergency department yesterday afternoon with a chief complaint of progressively worsening shortness of breath over the last 2 weeks. Associated symptoms include nonproductive cough, high fevers, nausea, reduced appetite. States that her cough was productive last week with green phlegm, however, is now more nonproductive and persistent. She is currently reporting substernal chest pressure, nonradiating, rated 10/10, started approximately 15 minutes ago, worse with coughing and deep breathing. She denies any sick contacts. Does report history of COPD, not currently using any inhalers outpatient. Denies home O2. Continues to smoke 3 to 4 cigarettes/month. Does take Chantix on an outpatient basis. Workup in the ED included viral screening which was negative for influenza, RSV, COVID. Chest x- ray showing subtle patchy nodular opacities bilaterally. CBC remarkable for leukocytosis with a WBC count of 13.7. CMP is unremarkable. Patient was started on empiric antibiotics in the ED. Normal saline infusing at 75 ml/hr. Current most recent vitals: Temperature 98 F, heart rate 92 bpm, blood pressure 91/56 mmHg, SpO2 is 92% on 2 L/min nasal cannula. She is being evaluated in the emergency department room 16. She is alert and oriented. No signs of CO2 n arcosis. She does have a nonproductive cough. Denies home O2 use. The patient is seen today June 18, 2024 in follow-up on the regular medical floor. She is currently sitting up at the bedside. Awake and alert in no acute distress. She is maintaining good O2 saturations in the 90s on 3 L/min per nasal cannula. Her procalcitonin was negative at 0.14. Her ceftriaxone will be discontinued. Breathing easier today compared to yesterday. Culture revealing no growth. White count 15.5. Hemoglobin 11.2. Platelets 248. Sodium 138. Potassium 4.3. Bicarb 24. BUN 23. Creatinine 0.9. Glucose 168. She is continued on Symbicort, Singulair, DuoNeb inhalations, Solu-Medrol. Lovenox for DVT prophylaxis. The patient is seen today June 19, 2024 in follow-up on the regular medical floor. She is currently resting comfortably in bed. Awake and alert in no acute distress. Maintaining O2 saturations in the 90s on 4 L/min per nasal cannula. Normal saline at 75 mL/h. Her procalcitonin was negative at 0.07. Blood culture reveals no growth. She remains on DuoNeb and elations, Symbicort, prednisone. Lovenox for DVT prophylaxis. Robitussin for her cough. The patient is seen today June 20, 2024 in follow-up on the regular medical floor. She is currently resting comfortably in bed. Awake and alert in no acute distress. Maintaining O2 saturations in the 90s on 4 L/min per nasal cannula. She has normal saline at 75 mL/h. Blood culture revealed no growth. She remains on DuoNeb and elations, Symbicort, prednisone taper. Lovenox for DVT prophylaxis. Continued on Chantix. On 06/21/2024, the patient is being seen for a follow-up. The patient is being treated for an acute COPD exacerbation. The patient is feeling slightly improved compared to yesterday. She remains on Symbicort. She remains on DuoNeb nebulized treatments [id number]. She is also on a prednisone burst taper starting with 40 mg p.o. daily. She is on Lovenox for DVT prophylaxis. Rest of the home medications have been resumed. No new labs are available from today. Noted her procalcitonin level was 0.14. Troponins were negative. The viral screen was also negative. The patient is a chronic smoker. On 06/22/2024, the patient is being seen for a follow-up. Continues to be symptomatic and wheezy and short of breath and continues to cough. A follow-up chest x-ray was obtained this morning and it shows small left-sided pleural effusion with adjacent atelectasis and ongoing mild increase in interstitial densities bilaterally. The patient otherwise has no new complaints. The [facility] ient remains on oxygen at 3.5 L/min nasal cannula with a pulse ox of 97%. The patient remains on DuoNeb the regiment [id number], Symbicort, prednisone currently at 40 mg p.o. daily as part of a burst taper. Remains on Lovenox for DVT prophylaxis. No new labs are available from today. Viral 4 Plex at time of admission was negative. 06/23/2024, the patient is feeling better. She states that she may need another day of treatment. Noted she is on DuoNeb updrafts. She is on Symbicort and she is already on a prednisone burst taper. Cough and congestion is improved compared to yesterday. No new labs are available from today. She remains on oxygen 3 L with a pulse ox of 94%. No new complaints otherwise. On 06/24/2024, the patient is being seen for a follow-up. Doing well. Cough and congestion is still present although improved. The patient has no specific complaints. She feels that she is ready to go home. She will complete the prednisone burst taper on outpatient basis. On today's evaluation, the patient is still on 3-1/2 L of oxygen by nasal cannula with a pulse ox of 94%. No new labs are available from today. She is tolerating her diet. No nausea. No emesis. No other complaints otherwise. Objective - Vital Signs Vital signs: Vital Signs Temp 98.1 F 06/24/24 08:09 Pulse 60 06/24/24 09:49 Resp 17 06/24/24 08:09 BP 103/69 06/24/24 08:09 Pulse Ox 93 L 06/24/24 09:40 FiO2 Intake & Output 06/23/24 06/24/24 06/24/24 18:59 06:59 18:59 Intake Total 1013 Balance 1013 Weight 90.718 kg Intake: Oral 1013 Other: Voiding Method Toilet # Voids 5 - Exam GENERAL EXAM: Alert, 63-year-old female, resting comfortably in bed, on 3 L nasal cannula, in no apparent distress. HEAD: Normocephalic and atraumatic EYES: Normal reaction of pupils, equal size. NOSE: Clear with pink turbinates. THROAT: No erythema or exudates. NECK: No masses, no JVD. CHEST: No chest wall deformity. Bilateral mastectomy LUNGS: Equal air entry with faint expiratory wheezes and rhonchi bilaterally. CVS: S1 and S2 normal with no audible murmur, regular rhythm. No extra heart sounds ABDOMEN: No hepatosplenomegaly, active bowel sounds, no guarding or rigidity. SPINE: No scoliosis or deformity SKIN: No rashes CENTRAL NERVOUS SYSTEM: No focal deficits, tone is normal in all 4 extremities. EXTREMITIES: There is no peripheral edema, clubbing, or cyanosis. Peripheral pulses are intact. - Labs CBC & Chem 7: 06/18/24 05:23 06/18/24 05:23 Assessment and Plan Plan: Acute COPD exacerbation, Chest x-ray showing subtle patchy nodular bilateral airspace opacities, however procalcitonin is negative. Acute hypoxemic respiratory failure, secondary to above, currently on 3.5 L/min nasal cannula Acute leukocytosis Chronic ongoing tobacco dependence, currently on Chantix, still smokes 3 to 4 cigarettes/month Hypertension History of hyperlipidemia History of aortic aneurysm History of hypothyroidism Obesity with BMI 33.3 kg/m2 History of sleeve gastrectomy History of gastritis History SWEETIE, no longer uses CPAP machine History of GERD History of chronic migraines History of breast cancer with bilateral mastectomy History of laparoscopic hernia repair with lysis of adhesions Plan: Clinically improved Will continue same treatment Continued on Symbicort, Singulair, albuterol Complete a prednisone taper, start at a dose of 40 mg p.o. daily and this needs to be completed on an outpatient basis. The patient is cleared for discharge from the pulmonary standpoint. Continue on her Chantix
== END 2024-06-24 15:24 | disposition home or self-care (01) | DRG 193 ==
LOC: EC 01:34 → 4SSUR 04:47
PROVIDERS: ADMIT Hospitalist; ATTEND Hospitalist
DX: J18.8 Other pneumonia, unspecified organism (principal); J96.01 Acute respiratory failure with hypoxia; J44.1 Chronic obstructive pulmonary disease with (acute) exacerbation; J44.0 Chronic obstructive pulmonary disease with (acute) lower respiratory infection; I10 Essential (primary) hypertension; E78.5 Hyperlipidemia, unspecified; F17.210 Nicotine dependence, cigarettes, uncomplicated; E03.9 Hypothyroidism, unspecified; Z79.890 Hormone replacement therapy; Z68.33 Body mass index [BMI] 33.0-33.9, adult; E66.01 Morbid (severe) obesity due to excess calories; F32.A Depression, unspecified; F43.10 Post-traumatic stress disorder, unspecified; G43.909 Migraine, unspecified, not intractable, without status migrainosus; G47.33 Obstructive sleep apnea (adult) (pediatric); I45.10 Unspecified right bundle-branch block; K21.9 Gastro-esophageal reflux disease without esophagitis; Z79.811 Long term (current) use of aromatase inhibitors; Z71.6 Tobacco abuse counseling; Z79.83 Long term (current) use of bisphosphonates; Z79.899 Other long term (current) drug therapy; I71.40 Abdominal aortic aneurysm, without rupture, unspecified; Z82.49 Family history of ischemic heart disease and other diseases of the circulatory system; Z86.0100 Personal history of colon polyps, unspecified; Z85.3 Personal history of malignant neoplasm of breast; Z86.16 Personal history of COVID-19; Z86.79 Personal history of other diseases of the circulatory system; Z83.3 Family history of diabetes mellitus; Z90.13 Acquired absence of bilateral breasts and nipples; Z98.84 Bariatric surgery status
CPT/HCPCS: 36415; 71045; 71046; 80048; 80053; 83605; 84145; 84484; 85025; 85610; 85730; 87040; 87636; 93005; 94640; 94760; 96361; 96365; 96366; 96367; 96372; 96375; 96376; 99291

== ENCOUNTER → 2024-08-26 | Day surgery (SDC) | payer MEDICARE ==
[2024-08-25 11:19] VITALS: BMI 30.7
[~2024-08-26] MED LIST changes: +PROPOFOL 10 MG/ML 20 ML VIAL IV ONE
[2024-08-26] MEDS: LACTATED RINGERS 1,000 ML IV ONE (07:34)
[2024-08-26 07:36] VITALS: TEMP 98.3
[2024-08-26] MEDS: LACTATED RINGERS 1,000 ML IV SCH (07:52)
[2024-08-26 07:55] LABS: Glucose,Whole Blood 109 mg/dL (70-110)
--- NOTE | 2024-08-26 08:22 | P.OP ---
Date of Procedure: 08/26/24 Preoperative Diagnosis: Screening colonoscopy Postoperative Diagnosis: Diverticulosis Procedure(s) Performed: Colonoscopy Anesthesia: MAC Surgeon: Navid Coley Pathology: none sent Condition: stable Disposition: PACU Description of Procedure: The patient is placed on the endoscopy table in the lateral position. She received IV sedation. Digital rectal exam performed. There were few external hemorrhoids. The flexible colonoscope was then placed patient anus passed with the colon. The scope could not be passed beyond the transverse colon secondary tortuosity of the bowel. These scope was removed and then a pediatric scope was attempted to be placed into the colon. This could not be passed beyond the splenic flexure second portion of the bowel. This point scope withdrawn. The visualized left colon and sigmoid colon had diverticular changes. Scope was put back the rectum was normal. Scope withdrawn the patient. Patient was scheduled for a barium enema.
[2024-08-26 09:21] VITALS: BP 149/90; PULSE 58; RESP 16
--- NOTE | 2024-08-26 12:23 | FL ---
EXAMINATION TYPE: FL barium enema DATE OF EXAM: 08/26/2024 COMPARISON: None CLINICAL INDICATION: Female, 63 years old with history of Incomplete colonoscopy; [facility], TECHNIQUE: A single contrast barium enema study is performed. A total of seconds of fluoroscopic ti me was utilized during procedure and images obtained. Total dose area product (DAP) in uGy*m?, mGy*c m? (or similar): . FINDINGS: [employer] view of the abdomen shows overall non-obstructive bowel gas pattern. No evidence of any mass or polyp, obstructing or constricting lesion throughout the colon. Moderate d iverticulosis involving the sigmoid colon. The terminal ileum was refluxed and appears within normal limits. IMPRESSION: Moderate diverticulosis involving the sigmoid colon. Otherwise unremarkable study. [facility], , 08/26/2024 12:20 PM
== END | disposition home or self-care (01) ==
LOC: ORWHC2ENDO 06:46
PROVIDERS: ATTEND Surgery
DX: Z12.11 Encounter for screening for malignant neoplasm of colon (principal); K57.30 Diverticulosis of large intestine without perforation or abscess without bleeding; I10 Essential (primary) hypertension; E78.5 Hyperlipidemia, unspecified; J44.9 Chronic obstructive pulmonary disease, unspecified; G47.33 Obstructive sleep apnea (adult) (pediatric); G43.909 Migraine, unspecified, not intractable, without status migrainosus; F43.10 Post-traumatic stress disorder, unspecified; F32.A Depression, unspecified; K21.9 Gastro-esophageal reflux disease without esophagitis; Z91.040 Latex allergy status; Z88.8 Allergy status to other drugs, medicaments and biological substances; Z99.81 Dependence on supplemental oxygen; Z79.899 Other long term (current) drug therapy
CPT/HCPCS: 74270; J2704; G0121

== ENCOUNTER → 2024-10-06 | Outpatient (CLI) | payer MEDICARE ==
--- NOTE | 2024-10-08 10:17 | BD ---
EXAMINATION TYPE: Axial Bone Density DATE OF EXAM: 10/06/2024 CLINICAL HISTORY: 63 years old Female. ICD-10 CODE: E04.1 THYROID NODULE , Additional History: Height: 63.2 in Weight: 185.5 lbs FRAX RISK QUESTIONS: History of Fracture in Adulthood: l-spine fx 2024 Secondary Osteoporosis: 3. Menopause before 45: age 40 RISK FACTORS HISTORY OF: Spine Fracture: l-spine 2024 History of Wrist Fracture: yes lt wrist in the Surgery to Wrist (left): yes in the MEDICATIONS: Thyroid Medications: yes Which medication: Synthroid How Lon+ years EXAM MEASUREMENTS: Bone mineral densitometry was performed using the [employer] System. Bone mineral density about the R hip (g/cm2): 0.959 Bone mineral density about the L hip (g/cm2): 0.914 T Score values are as follows: -----R Neck: -0.7 -----L Neck: -0.8 -----R Total: -0.4 -----L Total: -0.7 Z Score values are as follows: -----R Neck: 0.3 -----L Neck: 0.2 -----R Total: 0.3 -----L Total: -0.1 Bone mineral density baseline Bone mineral density about the R Wrist (g/cm2): 0.692 T Score values are as follows: -----Dist. R+U: -0.3 -----Prox. R+U: -0.2 -----Radius total: 0.3 Z Score values are as follows: -----Dist. R+U: 1.0 -----Prox. R+U: 1.1 -----Radius total: 1.6 Bone mineral density baseline FRAX%s: The graph provided illustrates a 11.9% chance for a major osteoporotic fx and a 0.7% chance f or the hips probability for fx in 10 years time. IMPRESSION: Normal (Values between +1 and -1 indicate normal bone mass). Consider repeating this study in 5 year s or sooner if there is some new clinical indication. NOTE: T-SCORE=SD OF THE YOUNG ADULT MEAN. [facility], , 10/08/2024 10:15 AM
== END | disposition home or self-care (01) ==
LOC: RADBDWWP 09-23 11:42
PROVIDERS: ATTEND Internal Medicine Hematology & Oncology
DX: M81.0 Age-related osteoporosis without current pathological fracture (principal); C50.412 Malignant neoplasm of upper-outer quadrant of left female breast; M85.9 Disorder of bone density and structure, unspecified; Z79.811 Long term (current) use of aromatase inhibitors; Z17.0 Estrogen receptor positive status [ER+]
CPT/HCPCS: 77080